=== PATIENT | female | born 1940 | race Caucasian/White ===

== ENCOUNTER 2016-10-03 13:15 | Inpatient (IN) | payer MEDICARE, BC ==
[2016-10-03] MEDS ORDERED: methylPREDNISolone SOD SUCCI 125 MG/2 ML VIAL IV STA (14:21)
[2016-10-03] MEDS ORDERED: IPRATROPIUM-ALBUTEROL 3 ML NEB INHALATION STA ×2 (14:21→16:31)
--- NOTE | 2016-10-03 14:24 | ED ---
General Adult HPI - General Source: patient, RN notes reviewed Mode of arrival: wheelchair Limitations: no limitations <Misha Bennett - Last Filed: 10/03/16 16:52> <Rashmi Molina - Last Filed: 10/03/16 18:40> - General Chief complaint: Shortness of Breath Stated complaint: SOB Time Seen by Provider: 10/03/16 13:45 - History of Present Illness Initial comments: This is a 70 citral female who has a past medical history significant for smoking 50+ years. Patient states she has COPD and occasionally she has an exacerbation of COPD. Patient states today she believes that is what is going on. Patient states that difficult breathing over the last 4-5 days. Patient states she's had intermittent chest heaviness over the last 4-5 days. Patient states currently she has had shortness of breath but no chest pain. Patient states she has no fever but has had some chills. Patient denies any significant cough. Patient denies any palpitations. Patient denies any radiation of chest pain. Patient denies any diaphoresis. Patient denies any nausea. Patient denies any abdominal pain. Patient denies any headache patient denies numbness weakness patient denies lightheadedness dizziness or near syncopal episode. (Misha Bennett) - Related Data Home Medications Medication Instructions Recorded Confirmed Albuterol Inhaler [Ventolin Hfa 1 - 2 puff INHALATION RT-Q6H PRN 10/03/16 Inhaler] Arformoterol Tartrate [Brovana] 15 mcg INHALATION RT-BID 10/03/16 10/03/16 Aspirin EC [Ecotrin Low Dose] 81 mg PO DAILY 10/03/16 10/03/16 Benzonatate [Tessalon Perles] 100 mg PO TID PRN 10/03/16 10/03/16 Budesonide [Pulmicort] 0.5 mg INHALATION RT-BID 10/03/16 10/03/16 Carvedilol [Coreg] 12.5 mg PO BID 10/03/16 10/03/16 Clotrimazole/Betamethasone Dip 1 applic TOPICAL BID 10/03/16 10/03/16 [Lotrisone Cream] Docusate [Colace] 100 mg PO BID 10/03/16 10/03/16 Fluticasone Nasal [place] [Flonase 1 spray EA NOSTRIL DAILY 10/03/16 10/03/16 Nasal [place]] Furosemide [Lasix] 40 mg PO DAILY 10/03/16 10/03/16 LORazepam [Ativan] 0.5 mg PO BID PRN 10/03/16 10/03/16 Levothyroxine Sodium [Synthroid] 100 mcg PO DAILY 10/03/16 10/03/16 Loratadine 10 mg PO DAILY PRN 10/03/16 10/03/16 Losartan Potassium [Cozaar] 50 mg PO DAILY 10/03/16 10/03/16 Multivitamins, Thera [Multivitamin 1 tab PO DAILY 10/03/16 10/03/16 (formulary)] Nitroglycerin Sl Tabs [Nitrostat] 0.4 mg SUBLINGUAL Q5M PRN 10/03/16 10/03/16 Omeprazole [PriLOSEC] 20 mg PO DAILY 10/03/16 10/03/16 Pseudoephedrine 12Hr [Sudafed 12Hr] 120 mg PO DAILY 10/03/16 10/03/16 Ranibizumab [Lucentis] 0 ml LEFT EYE 10/03/16 Ranibizumab [Lucentis] 0 ml RIGHT EYE 10/03/16 Sennosides [Senna] 8.6 mg PO BID 10/03/16 10/03/16 Tiotropium [place] [Spiriva] 1 cap INHALATION RT-DAILY 10/03/16 10/03/16 Vit C/E/Zn/Coppr/Lutein/Zeaxan 2 cap PO DAILY 10/03/16 10/03/16 [Preservision Areds 2 Softgel] amLODIPine [Norvasc] 10 mg PO DAILY 10/03/16 10/03/16 hydrALAZINE HCL [Hydralazine HCl] 25 mg PO BID 10/03/16 10/03/16 Allergies Allergy/AdvReac Type Severity Reaction Status Date / Time No Known Allergies Allergy Verified 10/03/16 14:44 Review of Systems ROS Other: All systems not noted in ROS Statement are negative. <Misha Bennett - Last Filed: 10/03/16 16:52> ROS Other: All systems not noted in ROS Statement are negative. <Rashmi Molina - Last Filed: 10/03/16 18:40> ROS Statement: Those systems with pertinent positive or pertinent negative responses have been documented in the HPI. Past Medical History Past Medical History: Cancer, Heart Failure, COPD, Hyperlipidemia, Hypertension , Sleep Apnea/CPAP/BIPAP, Thyroid Disorder Additional Past Medical History / Comment(s): cll sleep apnea macular degeneration skin ca History of Any Multi-Drug Resistant Organisms: None Reported Past Surgical History: Heart Catheterization With Stent, Tonsillectomy Additional Past Surgical History / Comment(s): d & c Past Psychological History: No Psychological Hx Reported Smoking Status: Former smoker Past Alcohol Use History: Daily Past Drug Use History: None Reported <Misha Bennett - Last Filed: 10/03/16 16:52> General Exam Limitations: no limitations <Misha Bennett - Last Filed: 10/03/16 16:52> <Rashmi Molina - Last Filed: 10/03/16 18:40> - General Exam Comments Initial Comments: GENERAL: Patient is well-developed and well-nourished. Patient is nontoxic and well- hydrated and is in mild distress. ENT: Neck is soft and supple. No significant lymphadenopathy is noted. Oropharynx is clear. Moist mucous membranes. Neck has full range of motion without eliciting any pain. EYES: The sclera were anicteric and conjunctiva were pink and moist. Extraocular movements were intact and pupils were equal round and reactive to light. Eyelids were unremarkable. PULMONARY: Patient has diminished breath sounds in the bases. CARDIOVASCULAR: There is a regular rate and rhythm without any murmurs gallops or rubs. ABDOMEN: Soft and nontender with normal bowel sounds. No palpable organomegaly was noted. There is no palpable pulsatile mass. SKIN: Skin is clear with no lesions or rashes and otherwise unremarkable. NEUROLOGIC: Patient is alert and oriented x3. Cranial nerves II through XII are grossly intact. Motor and sensory are also intact. Normal speech, volume and content. Symmetrical smile. MUSCULOSKELETAL: Normal extremities with adequate strength and full range of motion. No lower extremity swelling or edema. No calf tenderness. LYMPHATICS: No significant lymphadenopathy is noted PSYCHIATRIC: Normal psychiatric evaluation. Normal interpersonal interactions appears functionally intact in deals appropriately with others. No signs of depression. No signs of anxiety. (Misha Bennett) Course <Misha Bennett - Last Filed: 10/03/16 16:52> <Rashmi Molina - Last Filed: 10/03/16 18:40> Vital Signs 10/03/16 10/03/16 10/03/16 13:44 14:26 15:10 Temperature 97.7 F Pulse Rate 88 92 Respiratory 18 16 Rate Blood Pressure 126/60 115/61 O2 Sat by Pulse 86 L 91 L 85 L Oximetry 10/03/16 10/03/16 10/03/16 16:15 16:27 16:37 Temperature Pulse Rate 90 91 Respiratory 18 Rate Blood Pressure 121/72 O2 Sat by Pulse 87 L 83 L Oximetry 10/03/16 10/03/16 10/03/16 16:45 16:49 17:15 Temperature Pulse Rate 91 92 Respiratory 20 Rate Blood Pressure 121/72 111/59 O2 Sat by Pulse 93 L 90 L Oximetry - Reevaluation(s) Reevaluation #1: 10/03/16 18:[address] of the chest angiogram was reviewed, she has a 4 cm aortic aneurysm and descending aorta she also has a congestive heart failure and COPD we'll go ahead and admit her under Dr. Gold service and Dr. Zaragoza or pbx manager to be consulted, I recommended admission in patient agreed with 10/03/16 18:39 (Rashmi Molina) Medical Decision Making - Lab Data Result diagrams: 10/03/16 14:24 10/03/16 14:24 <Misha Bennett - Last Filed: 10/03/16 16:52> - Lab Data Result diagrams: 10/03/16 14:24 10/03/16 14:24 <Rashmi Molina - Last Filed: 10/03/16 18:40> - Medical Decision Making EKG shows normal sinus rhythm at 80 bpm MN interval 168 QRS is 78 QT interval 376 QTC is 454. Patient's EKG shows no ST segment elevation or depression. Dr. Barrera will be taking over care of this patient at 5 PM (Misha Bennett) - Lab Data Lab Results 10/03/16 10/03/16 10/03/16 Range/Units 14:24 14:24 14:24 WBC 21.5 H (3.8-10.6) k/uL RBC 3.09 L (3.80-5.40) m/uL Hgb 9.9 L (11.4-16.0) gm/dL Hct 31.0 L (34.0-46.0) % MCV 100.6 H (80.0-100.0) fL MCH 32.2 (25.0-35.0) pg MCHC 32.0 (31.0-37.0) g/dL RDW 15.1 (11.5-15.5) % Plt Count 262 (150-450) k/uL Neutrophils % (Manual) 18.0 % Lymphocytes % (Manual) 78.0 % Monocytes % (Manual) 4.0 % Neutrophils # (Manual) 3.9 (1.3-7.7) k/uL Lymphocytes # (Manual) 16.8 H (1.0-4.8) k/uL Monocytes # (Manual) 0.9 (0-1.0) k/uL Nucleated RBCs 0 (0-0) /100 WBC Manual Slide Review Performed Reactive Lymphocytes Present Hypochromasia Slight Macrocytosis Slight PT (9.0-12.0) sec INR (<1.2) APTT (22.0-30.0) sec D-Dimer (<0.60) mg/L FEU Sodium 138 (137-145) mmol/L Potassium 5.3 H (3.5-5.1) mmol/L Chloride 89 L (98-107) mmol/L Carbon Dioxide 39 H (22-30) mmol/L Anion Gap 10 mmol/L BUN 25 H (7-17) mg/dL Creatinine 0.95 (0.52-1.04) mg/dL Est GFR (MDRD) Af Amer >60 (>60 ml/min/1.73 sqM) Est GFR (MDRD) Non-Af 57 (>60 ml/min/1.73 sqM) Glucose 109 H (74-99) mg/dL Calcium 9.7 (8.4-10.2) mg/dL Magnesium 1.8 (1.6-2.3) mg/dL Total Bilirubin 0.5 (0.2-1.3) mg/dL AST 16 (14-36) U/L ALT 31 (9-52) U/L Alkaline Phosphatase 109 (38-126) U/L Total Creatine Kinase 26 L (30-135) U/L CK-MB (CK-2) 1.2 (0.0-2.4) ng/mL CK-MB (CK-2) Rel Index 4.6 Troponin I <0.012 (0.000-0.034) ng/mL NT-Pro-B Natriuret Pep pg/mL Total Protein 6.2 L (6.3-8.2) g/dL Albumin 3.8 (3.5-5.0) g/dL 10/03/16 10/03/16 10/03/16 Range/Units 14:24 14:24 14:24 WBC (3.8-10.6) k/uL RBC (3.80-5.40) m/uL Hgb (11.4-16.0) gm/dL Hct (34.0-46.0) % MCV (80.0-100.0) fL MCH (25.0-35.0) pg MCHC (31.0-37.0) g/dL RDW (11.5-15.5) % Plt Count (150-450) k/uL Neutrophils % (Manual) % Lymphocytes % (Manual) % Monocytes % (Manual) % Neutrophils # (Manual) (1.3-7.7) k/uL Lymphocytes # (Manual) (1.0-4.8) k/uL Monocytes # (Manual) (0-1.0) k/uL Nucleated RBCs (0-0) /100 WBC Manual Slide Review Reactive Lymphocytes Hypochromasia Macrocytosis PT 10.5 (9.0-12.0) sec INR 1.0 (<1.2) APTT 22.2 (22.0-30.0) sec D-Dimer 0.83 H (<0.60) mg/L FEU Sodium (137-145) mmol/L Potassium (3.5-5.1) mmol/L Chloride (98-107) mmol/L Carbon Dioxide (22-30) mmol/L Anion Gap mmol/L BUN (7-17) mg/dL Creatinine (0.52-1.04) mg/dL Est GFR (MDRD) Af Amer (>60 ml/min/1.73 sqM) Est GFR (MDRD) Non-Af (>60 ml/min/1.73 sqM) Glucose (74-99) mg/dL Calcium (8.4-10.2) mg/dL Magnesium (1.6-2.3) mg/dL Total Bilirubin (0.2-1.3) mg/dL AST (14-36) U/L ALT (9-52) U/L Alkaline Phosphatase (38-126) U/L Total Creatine Kinase (30-135) U/L CK-MB (CK-2) (0.0-2.4) ng/mL CK-MB (CK-2) Rel Index Troponin I (0.000-0.034) ng/mL NT-Pro-B Natriuret Pep 1870 pg/mL Total Protein (6.3-8.2) g/dL Albumin (3.5-5.0) g/dL Disposition <Misha Bennett - Last Filed: 10/03/16 16:52> <Rashmi Molina - Last Filed: 10/03/16 18:40> Clinical Impression: COPD (chronic obstructive pulmonary disease), Congestive heart failure, Ascending aortic aneurysm Disposition: ADMITTED IP TO THIS HOSP Condition: Fair Referrals: Bernard Zaragoza MD [STAFF PHYSICIAN] - 1-2 days
[2016-10-03 14:50] LABS: Partial Thromboplastin Time 22.2 sec (22.0-30.0); Prothrombin Time 10.5 sec (9.0-12.0)
[2016-10-03 14:51] LABS: ALT 31 U/L (9-52); AST 16 U/L (14-36); Alkaline Phosphatase 109 U/L (38-126); Anion Gap 10 mmol/L; Blood Urea Nitrogen 25 mg/dL (7-17); Calcium 9.7 mg/dL (8.4-10.2); Carbon Dioxide 39 mmol/L (22-30); Chloride 89 mmol/L (98-107); Glucose 109 mg/dL (74-99); Magnesium 1.8 mg/dL (1.6-2.3); Non-African American GFR(MDRD) 57 (>60 ml/min/1.73 sqM); Potassium 5.3 mmol/L (3.5-5.1); Sodium 138 mmol/L (137-145); Total Bilirubin 0.5 mg/dL (0.2-1.3); Total Protein 6.2 g/dL (6.3-8.2)
[2016-10-03 15:02] LABS: Creatine Kinase 26 U/L (30-135)
[2016-10-03 15:04] LABS: CH 31.5; CHCM 31.5; HDW 3.04; HGB 9.9 gm/dL (11.4-16.0); Hypochromasia Slight; MCH 32.2 pg (25.0-35.0); MCV 100.6 fL (80.0-100.0); Macrocytosis Slight; Mean Platelet Volume 7.5; RBC 3.09 m/uL (3.80-5.40); RDW 15.1 % (11.5-15.5); WBC 21.5 k/uL (3.8-10.6); WBC (Perox) 19.83
[2016-10-03 15:15] LABS: Add Differential Manual Differential; Creatine Kinase MB 1.2 ng/mL (0.0-2.4); Troponin I <0.012 ng/mL (0.000-0.034)
[2016-10-03 15:18] LABS: Manual Review Performed; Nucleated Red Blood Cells 0 /100 WBC (0-0); Reactive Lymphocytes Present; Total Cells Counted 100
--- NOTE | 2016-10-03 15:47 | XR ---
EXAMINATION TYPE: XR chest 2V DATE OF EXAM: 10/03/2016 COMPARISON: NONE HISTORY: Hypoxia and dyspnea. TECHNIQUE: Frontal and lateral views of the chest are obtained. FINDINGS: The cardiac silhouette is mildly enlarged. Mild pulmonary vascular congestion is appreciat ed. Small layering pleural effusions, left greater than right are seen. There is generalized osseous demineralization. Atherosclerosis is seen of the ascending aorta and aortic arch. IMPRESSION: Mild pulmonary vascular congestion and small pleural effusions in association with cardi omegaly likely relate to underlying congestive heart failure.
[2016-10-03] MEDS ORDERED: RX INFO: IV CONTRAST WAS GIVEN 1 EACH MISC MISCELLANE PRN (16:47)
[2016-10-03] MEDS ORDERED: NITROGLYCERIN OINT 1 INCH/GM PACKET TOPICAL STA (16:54)
[2016-10-03] MEDS ORDERED: FUROSEMIDE 10 MG/ML 4 ML VIAL IV STA (16:54)
[2016-10-03] MEDS ORDERED: LEVOFLOXACIN 750MG-D5W PMX 750 MG in DEXTROSE/WATER 1 150ML.BAG IVPB STA (16:59)
--- NOTE | 2016-10-03 17:59 | CT ---
EXAMINATION TYPE: CT chest angio for PE DATE OF EXAM: 10/03/2016 COMPARISON: NONE HISTORY: chest pain, sob, r/o PE CT DLP: 463.7 mGycm Automated exposure control for dose reduction was used. CONTRAST: CT Chest for pulmonary embolism performed with with IV Contrast, patient injected with 80 mL of Visip a[place] 320. FINDINGS: There are 3-D post processed images. There is diffuse pulmonary emphysema. There is coarse groundglass interstitial density throughout the lungs. There are mild bilateral pleural effusions. Heart is enlarged. I see no filling defects in th e pulmonary arteries. Thoracic aorta is atheromatous. Ascending aorta measures 4 cm. There is no sign of dissection. There is some atelectasis at the posterior lung bases. There is no definite pericardi al effusion. There are enlarged bronchial and mediastinal lymph nodes that measure up to 1.5 cm. Ther e is atherosclerotic vascular calcification.. IMPRESSION: No evidence of pulmonary embolism. Cardiomegaly and atherosclerotic vascular disease. Mild 4 cm aneur ysm of the ascending aorta. Patchy atelectasis at the lung bases with small pleural effusions. This could relate to congestive he art failure. Interstitial fibrotic changes throughout the lungs with emphysema. Mild mediastinal and bronchial adenopathy. This could relate to old sarcoidosis.
[2016-10-03] MEDS ORDERED: MORPHINE SULFATE 2 MG/ML SYRINGE IVP PRN (18:40)
[2016-10-03] MEDS ORDERED: ALBUTEROL NEBULIZED 2.5 MG/3 ML INHALATION PRN (18:48)
[2016-10-03] MEDS ORDERED: BENZONATATE 100 MG CAP PO PRN (18:48)
[2016-10-03] MEDS ORDERED: LORATADINE 10 MG TAB PO PRN (18:48)
[2016-10-03] MEDS ORDERED: NITROGLYCERIN SL TABS 0.4 MG TAB SUBLINGUAL PRN (18:48)
[2016-10-03] MEDS: BUDESONIDE 0.5 MG/2 ML NEBU INHALATION SCH (19:48)
[2016-10-03] MEDS ORDERED: FORMOTEROL FUMARATE 20 MCG/2 ML NEBU INHALATION SCH (20:00)
[2016-10-03] MEDS: CARVEDILOL 12.5 MG TAB PO SCH (20:24)
[2016-10-03] MEDS: hydrALAZINE HCL 25 MG TAB PO SCH (20:25)
[2016-10-03] MEDS: SENNOSIDES 8.6 MG TAB PO SCH (20:25)
[2016-10-03] MEDS: DOCUSATE 100 MG CAP PO SCH (20:25)
[2016-10-03] MEDS: CLOTRIMAZOLE/BETAMETH 1-0.05% CREAM 45 GM TUBE TOPICAL SCH (20:26)
[2016-10-03 21:22] LABS: Creatine Kinase <20 U/L (30-135)
[2016-10-03 21:34] LABS: Troponin I <0.012 ng/mL (0.000-0.034)
[2016-10-03] MEDS ORDERED: IPRATROPIUM-ALBUTEROL 3 ML NEB INHALATION SCH (21:50)
--- NOTE | 2016-10-03 22:07 | P.HPIM ---
History of Present Illness H&P Date: 10/03/16 Chief Complaint: Short of breath This is a 76 year patient be followed by [facility]. Patient chronic stable medical conditions include hyperlipidemia, hypertension, CLL, coronary artery disease with stent, osteoarthritis. Patient presents with worsening short of breath sounds wheezing some edema has called Dr. Zaragoza's office and patient's directives the ER. Patient pulse ox dropped down to the 70s. Patient has a slight cough has some chills but no fever and decreased appetite rundown. Patient rather tired and rundown. Significant past family history: CHF, COPD, hyperlipidemia, hypertension, obstructive sleep apnea, CLL, coronary artery disease with stent, osteoarthritis Review of Systems GEN.: Tired EYES: None HEENT: None NECK: None RESPIRATORY: As above] CARDIOVASCULAR: None GASTROINTESTINAL: None GENITOURINARY: None MUSCULOSKELETAL: Pain in multiple joints LYMPHATICS: None HEMATOLOGICAL: None PSYCHIATRY: Some anxious NEUROLOGICAL: None Past Medical History Past Medical History: Cancer, Heart Failure, COPD, Hyperlipidemia, Hypertension , Sleep Apnea/CPAP/BIPAP, Thyroid Disorder Additional Past Medical History / Comment(s): CLL. sleep apnea. macular degeneration. Skin ca History of Any Multi-Drug Resistant Organisms: None Reported Past Surgical History: Heart Catheterization With Stent, Tonsillectomy Additional Past Surgical History / Comment(s): d & c Past Anesthesia/Blood Transfusion Reactions: No Reported Reaction Date of Last Stent Placement:: 2007 Past Psychological History: No Psychological Hx Reported Smoking Status: Former smoker Past Alcohol Use History: Daily Past Drug Use History: None Reported - Past Family History Mother Family Medical History: Congestive Heart Failure (CHF) Father Family Medical History: No Reported History Additional Family Medical History / Comment(s): "Alcohol problems" Chirrosis Medications and Allergies Home Medications Medication Instructions Recorded Confirmed Type Albuterol Inhaler [Ventolin Hfa 1 - 2 puff INHALATION RT-Q6H PRN 10/03/16 History Inhaler] Arformoterol Tartrate [Brovana] 15 mcg INHALATION RT-BID 10/03/16 10/03/16 History Aspirin EC [Ecotrin Low Dose] 81 mg PO DAILY 10/03/16 10/03/16 History Benzonatate [Tessalon Perles] 100 mg PO TID PRN 10/03/16 10/03/16 History Budesonide [Pulmicort] 0.5 mg INHALATION RT-BID 10/03/16 10/03/16 History Carvedilol [Coreg] 12.5 mg PO BID 10/03/16 10/03/16 History Clotrimazole/Betamethasone Dip 1 applic TOPICAL BID 10/03/16 10/03/16 History [Lotrisone Cream] Docusate [Colace] 100 mg PO BID 10/03/16 10/03/16 History Fluticasone Nasal [place] [Flonase 1 spray EA NOSTRIL DAILY 10/03/16 10/03/16 History Nasal [place]] Furosemide [Lasix] 40 mg PO DAILY 10/03/16 10/03/16 History LORazepam [Ativan] 0.5 mg PO BID PRN 10/03/16 10/03/16 History Levothyroxine Sodium [Synthroid] 100 mcg PO DAILY 10/03/16 10/03/16 History Loratadine 10 mg PO DAILY PRN 10/03/16 10/03/16 History Losartan Potassium [Cozaar] 50 mg PO DAILY 10/03/16 10/03/16 History Multivitamins, Thera [Multivitamin 1 tab PO DAILY 10/03/16 10/03/16 History (formulary)] Nitroglycerin Sl Tabs [Nitrostat] 0.4 mg SUBLINGUAL Q5M PRN 10/03/16 10/03/16 History Omeprazole [PriLOSEC] 20 mg PO DAILY 10/03/16 10/03/16 History Pseudoephedrine 12Hr [Sudafed 12Hr] 120 mg PO DAILY 10/03/16 10/03/16 History Ranibizumab [Lucentis] 0 ml LEFT EYE 10/03/16 History Ranibizumab [Lucentis] 0 ml RIGHT EYE 10/03/16 History Sennosides [Senna] 8.6 mg PO BID 10/03/16 10/03/16 History Tiotropium [place] [Spiriva] 1 cap INHALATION RT-DAILY 10/03/16 10/03/16 History Vit C/E/Zn/Coppr/Lutein/Zeaxan 2 cap PO DAILY 10/03/16 10/03/16 History [Preservision Areds 2 Softgel] amLODIPine [Norvasc] 10 mg PO DAILY 10/03/16 10/03/16 History hydrALAZINE HCL [Hydralazine HCl] 25 mg PO BID 10/03/16 10/03/16 History Allergies Allergy/AdvReac Type Severity Reaction Status Date / Time No Known Allergies Allergy Verified 10/03/16 14:44 Physical Exam Vitals: Vital Signs Temp Pulse Pulse Resp BP BP Pulse Ox 10/03/16 20:07 112 H 10/03/16 20:00 109 H 10/03/16 19:16 102 H 18 119/57 90 L 10/03/16 19:05 97.1 F L 80 20 123/68 89 L 10/03/16 19:00 87 L 10/03/16 18:15 102 H 18 110/57 89 L 10/03/16 17:15 92 20 111/59 90 L 10/03/16 16:49 91 10/03/16 16:45 121/72 93 L 10/03/16 16:37 91 10/03/16 16:27 83 L 10/03/16 16:15 90 18 121/72 87 L 10/03/16 15:10 92 16 115/61 85 L 10/03/16 14:26 91 L 10/03/16 13:44 97.7 F 88 18 126/60 86 L Intake and Output Patient Weight 10/04/16 06:59 Weight 90.718 kg VITAL SIGNS: Reviewed. BMI noted GENERAL: Well built, laying in bed tired appearing. EYES: Pupils equal. Conjunctiva normal. HEENT: External appearance of nose and ears normal, oral cavity grossly normal. NECK: JVD unable to assess; masses not palpable. HEART: First and second heart sounds are normal; some edema present. LUNGS: Respiratory rate increased, diminished breath sounds and wheezing. ABDOMEN: Soft, nontender, liver spleen not palpable, no masses palpable. LYMPHATICS: No lymph nodes palpable in the axilla and neck. PSYCH: Alert and oriented x3; mood and affect anxious appearingl. NEUROLOGICAL: Cranial nerves grossly intact; no facial asymmetry, power and sensation grossly intact Musculoskeletal: Evidence of osteoarthritis in multiple joints. Results CBC & Chem 7: 10/03/16 14:24 10/03/16 14:24 Labs: White count 21.5, hemoglobin 9.9 MCV 100.6, potassium 5.3, BUNs 25 Chest x-ray reviewed shows some venous prominence ProBNP 1870 CT chest negative for PE EKG nonspecific changes Assessment and Plan Plan: Assessment: Acute congestive heart failure exacerbation, EF not known Acute COPD exacerbation in an ex-smoker Hyperlipidemia Essential hypertension Obstetric sleep apnea does not use CPAP machine Chronic lymphocytic leukemia explaining patient's limited white count Coronary artery disease with prior history of stent 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 Obesity BMI 34.3 Plan: We'll start the patient on a nebulized bronchodilators and IV Solu-Medrol. We will also add IV Lasix. Other home medications are reviewed and continued. Care was discussed with the patient. Questions were answered. Oxygen being supplemented. 2-D echo being ordered
[2016-10-03] MEDS ORDERED: IPRATROPIUM-ALBUTEROL 3 ML NEB INHALATION PRN (22:48)
[2016-10-03] MEDS: methylPREDNISolone SOD SUCCI 40 MG/ML 1 ML VIAL IV SCH (22:56)
[2016-10-03] MEDS: FUROSEMIDE 10 MG/ML 4 ML VIAL IV SCH (22:56)
[2016-10-04] MEDS: LORazepam 0.5 MG TAB PO PRN ×2 (00:14→22:59)
[2016-10-04 02:48] LABS: Calcium 9.3 mg/dL (8.4-10.2); Potassium 5.1 mmol/L (3.5-5.1)
[2016-10-04 02:51] LABS: Creatine Kinase 23 U/L (30-135)
[2016-10-04 03:04] LABS: Troponin I <0.012 ng/mL (0.000-0.034)
[2016-10-04 05:57] LABS: Glucose,Whole Blood 340 mg/dL (75-99)
[2016-10-04] MEDS: LEVOTHYROXINE 100 MCG TAB PO SCH (06:21)
[2016-10-04] MEDS: CARVEDILOL 12.5 MG TAB PO SCH ×2 (06:21→17:26)
[2016-10-04] MEDS: PANTOPRAZOLE 40 MG TABLET PO SCH (06:22)
[2016-10-04] MEDS: INSULIN LISPRO (humaLOG) 300 UNIT/3 ML VIAL SQ SCH ×4 (06:24→21:04)
[2016-10-04] MEDS ORDERED: TIOTROPIUM 18 MCG/PUFF INHALER INHALATION SCH (08:00)
[2016-10-04] MEDS: BUDESONIDE 0.5 MG/2 ML NEBU INHALATION SCH ×2 (08:14→20:34)
[2016-10-04] MEDS: IPRATROPIUM-ALBUTEROL 3 ML NEB INHALATION SCH ×4 (08:14→20:34)
[2016-10-04] MEDS: FORMOTEROL FUMARATE 20 MCG/2 ML NEBU INHALATION SCH ×2 (08:14→20:34)
[2016-10-04] MEDS: methylPREDNISolone SOD SUCCI 40 MG/ML 1 ML VIAL IV SCH ×2 (08:22→20:08)
[2016-10-04] MEDS: FUROSEMIDE 10 MG/ML 4 ML VIAL IV SCH ×3 (08:23→22:59)
[2016-10-04] MEDS ORDERED: ASPIRIN 325 MG TAB PO SCH (09:00)
[2016-10-04] MEDS ORDERED: FUROSEMIDE 40 MG TAB PO SCH (09:00)
--- NOTE | 2016-10-04 09:16 | P.CRDCN ---
History of Present Illness Consult date: 10/04/16 Requesting physician: Shekhar Gold Consult reason: chest pain Chief complaint: Shortness of breath History of present illness: This is a 76-year-old female with prior history of smoking, COPD, hypertension, hyperlipidemia, sleep apnea, hypothyroidism, coronary artery disease with 2 prior stent placements, she follows with Dr. Lewis at [facility]. Patient presents to the hospital with symptoms of progressively worsening shortness of breath with associated mild chills. She states that she has had several exacerbations of COPD, and this felt very similar to that. She does state that she's had occasional chest heaviness and tightness which she also gets with her COPD exacerbations. Patient denies any chest pain which reminds her of what she had prior to her stent placements. She also states that she had a recent admission to [facility] with exacerbation of COPD. EKG on arrival here shows a normal sinus rhythm with nonspecific ST-T wave changes in the anterior leads. Subsequent EKG which was performed this morning shows normal sinus rhythm with ST-T wave changes anteriorly. Chest x-ray revealed mild pulmonary vascular congestion and small pleural effusions likely related to underlying congestive heart failure. CT of the chest was performed which did not reveal any evidence for pulmonary embolism. 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 Patchy atelectasis at the lung bases with small pleural effusions which could represent congestive heart failure. Interstitial fibrotic changes in the lungs associated with emphysema. Mild mediastinotomy bronchial adenopathy. Blood pressure on arrival here 126/60 with heart rate in the 80s, 86% on 4 L of oxygen on arrival. White blood cell count on arrival here 21.5, hemoglobin 9.9, d-dimer 0.8. Sodium 138, potassium 5.3, chloride 89 , CO2 39, BUN 25, creatinine 0.9. BUN 37 and creatinine 1.2 this morning. Troponins have been negative 3, BNP level 1870. Cholesterol 237, LDL 172, HDL 39, triglycerides 132. was given IV Lasix in the emergency room, is currently on IV Lasix. She was also started on Solu-Medrol and breathing treatments. Overall she states she's feeling mildly better today. Past Medical History Past Medical History: Cancer, Heart Failure, COPD, Hyperlipidemia, Hypertension , Sleep Apnea/CPAP/BIPAP, Thyroid Disorder Additional Past Medical History / Comment(s): CLL. sleep apnea. macular degeneration. Skin ca History of Any Multi-Drug Resistant Organisms: None Reported Past Surgical History: Heart Catheterization With Stent, Tonsillectomy Additional Past Surgical History / Comment(s): d & c Past Anesthesia/Blood Transfusion Reactions: No Reported Reaction Date of Last Stent Placement:: 2007 Past Psychological History: No Psychological Hx Reported Smoking Status: Former smoker Past Alcohol Use History: Daily Past Drug Use History: None Reported - Past Family History Mother Family Medical History: Congestive Heart Failure (CHF) Father Family Medical History: No Reported History Additional Family Medical History / Comment(s): "Alcohol problems" Chirrosis Medications and Allergies Home Medications Medication Instructions Recorded Confirmed Type Albuterol Inhaler [Ventolin Hfa 1 - 2 puff INHALATION RT-Q6H PRN 10/03/16 History Inhaler] Arformoterol Tartrate [Brovana] 15 mcg INHALATION RT-BID 10/03/16 10/03/16 History Aspirin EC [Ecotrin Low Dose] 81 mg PO DAILY 10/03/16 10/03/16 History Benzonatate [Tessalon Perles] 100 mg PO TID PRN 10/03/16 10/03/16 History Budesonide [Pulmicort] 0.5 mg INHALATION RT-BID 10/03/16 10/03/16 History Carvedilol [Coreg] 12.5 mg PO BID 10/03/16 10/03/16 History Clotrimazole/Betamethasone Dip 1 applic TOPICAL BID 10/03/16 10/03/16 History [Lotrisone Cream] Docusate [Colace] 100 mg PO BID 10/03/16 10/03/16 History Fluticasone Nasal [place] [Flonase 1 spray EA NOSTRIL DAILY 10/03/16 10/03/16 History Nasal [place]] Furosemide [Lasix] 40 mg PO DAILY 10/03/16 10/03/16 History LORazepam [Ativan] 0.5 mg PO BID PRN 10/03/16 10/03/16 History Levothyroxine Sodium [Synthroid] 100 mcg PO DAILY 10/03/16 10/03/16 History Loratadine 10 mg PO DAILY PRN 10/03/16 10/03/16 History Losartan Potassium [Cozaar] 50 mg PO DAILY 10/03/16 10/03/16 History Multivitamins, Thera [Multivitamin 1 tab PO DAILY 10/03/16 10/03/16 History (formulary)] Nitroglycerin Sl Tabs [Nitrostat] 0.4 mg SUBLINGUAL Q5M PRN 10/03/16 10/03/16 History Omeprazole [PriLOSEC] 20 mg PO DAILY 10/03/16 10/03/16 History Pseudoephedrine 12Hr [Sudafed 12Hr] 120 mg PO DAILY 10/03/16 10/03/16 History Ranibizumab [Lucentis] 0 ml LEFT EYE 10/03/16 History Ranibizumab [Lucentis] 0 ml RIGHT EYE 10/03/16 History Sennosides [Senna] 8.6 mg PO BID 10/03/16 10/03/16 History Tiotropium [place] [Spiriva] 1 cap INHALATION RT-DAILY 10/03/16 10/03/16 History Vit C/E/Zn/Coppr/Lutein/Zeaxan 2 cap PO DAILY 10/03/16 10/03/16 History [Preservision Areds 2 Softgel] amLODIPine [Norvasc] 10 mg PO DAILY 10/03/16 10/03/16 History hydrALAZINE HCL [Hydralazine HCl] 25 mg PO BID 10/03/16 10/03/16 History Allergies Allergy/AdvReac Type Severity Reaction Status Date / Time No Known Allergies Allergy Verified 10/03/16 14:44 Physical Exam Vitals: Vital Signs Temp Pulse Pulse Resp BP BP BP 10/04/16 08:35 100 10/04/16 08:27 96 10/04/16 08:26 96 10/04/16 08:17 94 10/04/16 07:54 96.9 F L 95 18 101/55 10/04/16 04:00 97.5 F L 89 20 104/55 10/04/16 00:00 97.6 F 95 20 109/65 10/03/16 20:07 112 H 10/03/16 20:00 97.1 F L 109 H 80 20 123/68 10/03/16 19:16 102 H 18 119/57 10/03/16 19:05 97.1 F L 80 20 123/68 10/03/16 19:00 10/03/16 18:42 07/31/17 18:15 102 H 18 110/57 10/03/16 17:15 92 20 111/59 10/03/16 16:49 91 10/03/16 16:45 121/72 10/03/16 16:37 91 10/03/16 16:27 10/03/16 16:15 90 18 121/72 10/03/16 15:10 92 16 115/61 10/03/16 14:26 10/03/16 13:44 97.7 F 88 18 126/60 Pulse Ox 10/04/16 08:35 10/04/16 08:27 10/04/16 08:26 10/04/16 08:17 92 L 10/04/16 07:54 90 L 10/04/16 04:00 93 L 10/04/16 00:00 90 L 10/03/16 20:07 10/03/16 20:00 89 L 10/03/16 19:16 90 L 10/03/16 19:05 89 L 10/03/16 19:00 87 L 10/03/16 18:42 89 L 10/03/16 18:15 89 L 10/03/16 17:15 90 L 10/03/16 16:49 10/03/16 16:45 93 L 10/03/16 16:37 10/03/16 16:27 83 L 10/03/16 16:15 87 L 10/03/16 15:10 85 L 10/03/16 14:26 91 L 10/03/16 13:44 86 L Intake and Output 10/03/16 10/04/16 10/04/16 22:59 06:59 14:59 Output Total 200 500 Balance -200 -500 Output: Urine 200 500 Other: Voiding Method Toilet Toilet # Voids 1 1 Weight 90.718 kg 91.1 kg PHYSICAL EXAMINATION: HEENT: Head is atraumatic, normocephalic. Pupils equal, round. Neck is supple. There is no elevated jugular venous pressure. HEART EXAMINATION: Heart S1 S2 1 systolic murmur is heard. CHEST EXAMINATION: Lungs reveal decreased air entry to bilateral bases. ABDOMEN: Soft, nontender. Bowel sounds are heard. No organomegaly noted]. EXTREMITIES:[ 2+ peripheral pulses with no evidence of peripheral edema and no calf tenderness noted]. NEUROLOGIC [patient is awake, alert and oriented -3.] . Results 10/03/16 14:24 10/04/16 02:15 Cardiac Enzymes 10/03/16 10/03/16 10/03/16 Range/Units 14:24 14:24 20:52 AST 16 (14-36) U/L CK-MB (CK-2) 1.2 1.0 (0.0-2.4) ng/mL Troponin I <0.012 <0.012 (0.000-0.034) ng/mL 10/04/16 Range/Units 02:15 AST (14-36) U/L CK-MB (CK-2) 1.0 (0.0-2.4) ng/mL Troponin I <0.012 (0.000-0.034) ng/mL Coagulation 10/03/16 Range/Units 14:24 PT 10.5 (9.0-12.0) sec APTT 22.2 (22.0-30.0) sec Lipids 10/04/16 Range/Units 02:15 Triglycerides 132 (<150) mg/dL Cholesterol 237 H (<200) mg/dL HDL Cholesterol 39 L (40-60) mg/dL CBC 10/03/16 Range/Units 14:24 WBC 21.5 H (3.8-10.6) k/uL RBC 3.09 L (3.80-5.40) m/uL Hgb 9.9 L (11.4-16.0) gm/dL Hct 31.0 L (34.0-46.0) % Plt Count 262 (150-450) k/uL Comprehensive Metabolic Panel 10/03/16 10/04/16 Range/Units 14:24 02:15 Sodium 138 135 L (137-145) mmol/L Potassium 5.3 H 5.1 (3.5-5.1) mmol/L Chloride 89 L 86 L (98-107) mmol/L Carbon Dioxide 39 H 35 H (22-30) mmol/L BUN 25 H 37 H (7-17) mg/dL Creatinine 0.95 1.20 H (0.52-1.04) mg/dL Glucose 109 H 379 H (74-99) mg/dL Calcium 9.7 9.3 (8.4-10.2) mg/dL AST 16 (14-36) U/L ALT 31 (9-52) U/L Alkaline Phosphatase 109 (38-126) U/L Total Protein 6.2 L (6.3-8.2) g/dL Albumin 3.8 (3.5-5.0) g/dL Current Medications Generic Name Dose Route Start Last Admin Trade Name Freq PRN Reason Stop Dose Admin Albuterol/Ipratropium 3 ml 10/04/16 08:00 10/04/16 08:14 Duoneb 0.5 Mg-3 Mg/3 Ml Soln INHALATION 3 ml RT-QID JACK Administration Albuterol/Ipratropium 3 ml 10/03/16 22:48 Duoneb 0.5 Mg-3 Mg/3 Ml Soln INHALATION RT-Q2H PRN Shortness Of Breath Or Wheezing Amlodipine Besylate 10 mg 10/04/16 09:00 Norvasc PO DAILY [facility] Aspirin 325 mg 10/04/16 09:00 Aspirin PO DAILY [facility] Benzonatate 100 mg 10/03/16 18:48 Tessalon Perles PO TID PRN Cough Betamethasone/Clotrimazole 1 applic 10/03/16 21:00 10/03/16 20:26 Lotrisone TOPICAL Not Given BID [facility] Budesonide 0.5 mg 10/03/16 20:00 10/04/16 08:14 Pulmicort INHALATION 0.5 mg RT-BID JACK Administration Carvedilol 12.5 mg 10/03/16 19:30 10/04/16 06:21 Coreg PO 12.5 mg BID-W/MEALS [facility] Administration Docusate Sodium 100 mg 10/03/16 21:00 10/03/16 20:25 Colace PO 100 mg BID JACK Administration Fluticasone Propionate 1 spray 10/04/16 09:00 Flonase Nasal [place] EA NOSTRIL DAILY [facility] Formoterol Fumarate 20 mcg 10/04/16 08:00 10/04/16 08:14 Perforomist INHALATION 20 mcg RT-BID JACK Administration Furosemide 40 mg 10/04/16 00:00 10/04/16 08:23 Lasix IV 40 mg Q8HR JACK Administration Hydralazine HCl 25 mg 10/03/16 21:00 10/03/16 20:25 Apresoline PO 25 mg BID JACK Administration Insulin Human Lispro 0 unit 10/04/16 07:30 10/04/16 06:24 Humalog SQ 8 unit ACHS JACK Administration Protocol Levothyroxine Sodium 100 mcg 10/04/16 06:30 10/04/16 06:21 Synthroid PO 100 mcg DAILY@0630 JACK Administration Loratadine 10 mg 10/03/16 18:48 Claritin PO DAILY PRN Allergy Symptoms Lorazepam 0.5 mg 10/03/16 18:48 10/04/16 00:14 Ativan PO 0.5 mg BID PRN Administration Anxiety Losartan Potassium 50 mg 10/04/16 09:00 Cozaar PO DAILY [facility] Methylprednisolone Sodium Succinate 40 mg 10/04/16 00:00 10/04/16 08:22 Solu-Medrol IV 40 mg Q8HR JACK Administration Miscellaneous Information 1 each 10/03/16 16:47 Rx Info: Iv Contrast Was Given MISCELLANE 10/05/16 16:47 DAILY PRN Per Protocol Morphine Sulfate 2 mg 10/03/16 18:40 Morphine Sulfate (Inj) IVP Q5M PRN Chest Pain Multivitamins 1 each 10/04/16 12:00 Theragran PO DAILY@1200 [facility] Multivitamins/Minerals 2 each 10/04/16 09:00 Ivite PO DAILY [facility] Nitroglycerin 0.4 mg 10/03/16 18:48 Nitrostat SUBLINGUAL Q5M PRN Chest Pain Pantoprazole Sodium 40 mg 10/04/16 07:30 10/04/16 06:22 Protonix PO 40 mg [id number] [facility] Administration Pseudoephedrine HCl 120 mg 10/04/16 09:00 Sudafed 12hr PO DAILY [facility] Senna 8.6 mg 10/03/16 21:00 10/03/16 20:25 Senokot PO 8.6 mg BID [facility] Administration Intake and Output 10/03/16 10/04/16 10/04/16 22:59 06:59 14:59 Output Total 200 500 Balance -200 -500 Output: Urine 200 500 Other: Voiding Method Toilet Toilet # Voids 1 1 Weight 90.718 kg 91.1 kg 10/03/16 14:24 10/04/16 02:15 EKG Interpretations (text) EKG shows normal sinus rhythm with anterior ST-T wave changes Assessment and Plan Plan: Assessment and plan #1 symptoms of progressively worsening shortness of breath , likely combination of exacerbation of COPD, and mild congestive cardiac failure. LV function unknown #2 known history of coronary artery disease with 2 prior stent placements in the past #3 hypertension #4 hyperlipidemia #5 50 year history of smoking #6 COPD #7 sleep apnea #8 hypothyroidism #9 CLL Plan We will obtain an echocardiogram with Doppler study. We will also obtain records from [facility] on patient's prior cardiac history. Patient is currently on IV Lasix, we will monitor the kidney function closely. Decrease aspirin 81 mg daily. Further recommendations to follow. DNP note has been reviewed, I agree with a documented findings and plan of care. Patient was seen and examined.
[2016-10-04] MEDS: DOCUSATE 100 MG CAP PO SCH ×2 (09:37→20:08)
[2016-10-04] MEDS: hydrALAZINE HCL 25 MG TAB PO SCH ×2 (09:37→20:08)
[2016-10-04] MEDS: amLODIPine 10 MG TAB PO SCH (09:37)
[2016-10-04] MEDS: LOSARTAN 50 MG TAB PO SCH (09:38)
[2016-10-04] MEDS: VIT A,C & E-LUTEIN-MINERALS 1 EACH TAB PO SCH (09:38)
[2016-10-04] MEDS: PSEUDOEPHEDRINE 12HR 120 MG TABLET.ER PO SCH (09:38)
[2016-10-04] MEDS: SENNOSIDES 8.6 MG TAB PO SCH ×2 (09:38→20:08)
[2016-10-04] MEDS: CLOTRIMAZOLE/BETAMETH 1-0.05% CREAM 45 GM TUBE TOPICAL SCH ×2 (09:44→20:08)
[2016-10-04] MEDS: FLUTICASONE 50MCG/SPRAY NASAL 16GM EA NOSTRIL SCH (09:44)
--- NOTE | 2016-10-04 11:37 | ECHOF ---
Referral Reason:CHF MEASUREMENTS -------- HEIGHT: 162.6 cm WEIGHT: 90.7 kg BP: 104/65 IVSd: 1.3 cm (0.6 - 1.1) LVIDd: 4.0 cm (3.9 - 5.3) LVPWd: 1.1 cm (0.6 - 1.1) IVSs: 1.6 cm LVIDs: 3.4 cm LVPWs: 1.5 cm LA Diam: 4.3 cm (2.7 - 3.8) Ao Diam: 3.4 cm (2.0 - 3.7) AV Cusp: 1.8 cm (1.5 - 2.6) LA Diam: 5.1 cm (2.7 - 3.8) MV EXCURSION: 17.180 mm (> 18.000) MV EF SLOPE: 93 mm/s (70 - 150) EPSS: 0.4 cm MV E Sunday: 0.72 m/s MV DecT: 228 ms MV A Sunday: 1.10 m/s MV E/A Ratio: 0.66 RAP: 5.00 mmHg RVSP: 26.04 mmHg FINDINGS -------- Sinus rhythm. Pt complaining of apicals pressure. There is mild concentric left ventricular hypertrophy. Overall left ventricular systolic function is normal with, an EF between 55 - 60 %. The right ventricle is normal in size. The right atrial size is normal. 1.5MG OF DEFINITY UTLIZED: 2 OR MORE WALL SEGMENTS NOT VISUALIZED. There is mild aortic valve sclerosis. There is no evidence of aortic regurgitation. Mild mitral annular calcification present. Mild mitral regurgitation is present. Mild tricuspid regurgitation present. There is no evidence of pulmonary hypertension. The right ventricular systolic pressure, as measured by Doppler, is 26.04mmHg. There is no pulmonic regurgitation present. The aortic root size is normal. There is a trivial pericardial effusion present. CONCLUSIONS -------- 1. Pt complaining of apicals pressure. 2. The right ventricular systolic pressure, as measured by Doppler, is 26.04mmHg. 3. There is mild concentric left ventricular hypertrophy. 4. Overall left ventricular systolic function is normal with, an EF between 55 - 60 %. 5. 1.5MG OF DEFINITY UTLIZED: 2 OR MORE WALL SEGMENTS NOT VISUALIZED. 6. There is mild aortic valve sclerosis. 7. Mild mitral annular calcification present. 8. Mild mitral regurgitation is present. 9. Mild tricuspid regurgitation present. 10. There is no evidence of pulmonary hypertension. [employer]: Roslyn Aguila RDCS
[2016-10-04 11:45] LABS: Hemoglobin A1C 6.5 % (4.2-6.1)
[2016-10-04 12:15] LABS: Glucose,Whole Blood 247 mg/dL (75-99)
--- NOTE | 2016-10-04 12:31 | P.CNPUL ---
History of Present Illness Consult date: 10/04/16 Requesting physician: Shekhar Gold Reason for consult: abnormal CXR/CT Chief complaint: Worsening shortness of breath History of present illness: This is a very pleasant 76-year-old female patient who follows with Dr. Dooley as her primary care physician. She has a history of hyperlipidemia, hypertension, obstructive sleep apnea, hypothyroidism. She says a history of chronic lymphocytic leukemia follows with Dr. Gomez for the same. She also has a history of severe oxygen dependent chronic obstructive pulmonary disease and follows with Dr. Zaragoza in our office. She does have a significant smoking history of 50 year plus pack per day. He had developed a 4-5 day episodes of worsening shortness of breath and presented here for the same. Her chest x-ray showed mild pulmonary vascular congestion and small pleural effusions with cardiomegaly. CT angiogram revealed no evidence of pulmonary embolism. There was again noted cardiomegaly with atelectasis at lung bases and small pleural effusions most likely secondary to heart failure. There is also interstitial fibrotic changes along with emphysema. 4 cm descending aortic aneurysm. An echocardiogram reveals preserved left ventricular systolic function with estimated ejection fraction 55-60%. RVSP 26 mmHg. No evidence of pulmonary hypertension. He is seen today in consultation on the selective care unit. She is awake and alert in no acute distress. States she is breathing easier today as compared to yesterday. She did have elevated white count of 21.5, hemoglobin 9.9, creatinine 1.20 with initial presentation of 0.95 prior to CTA. Her BNP 1878, troponins negative 3. He has been initiated on bronchodilators 4 times a day and when necessary along with Tessalon Perles, Pulmicort inhalations twice a day and IV Solu-Medrol. She is also started on Lasix 40 mg IV every 8 hours. He is requiring 6 L of high flow nasal cannula to maintain O2 saturations in the low 90s. She's been hemodynamically stable. Review of Systems 14 point review of system was conducted. All negative other than as mentioned in HPI. Past Medical History Past Medical History: Cancer, Heart Failure, COPD, Hyperlipidemia, Hypertension , Sleep Apnea/CPAP/BIPAP, Thyroid Disorder Additional Past Medical History / Comment(s): CLL. sleep apnea. macular degeneration. Skin ca History of Any Multi-Drug Resistant Organisms: None Reported Past Surgical History: Heart Catheterization With Stent, Tonsillectomy Additional Past Surgical History / Comment(s): d & c Past Anesthesia/Blood Transfusion Reactions: No Reported Reaction Date of Last Stent Placement:: 2007 Past Psychological History: No Psychological Hx Reported Smoking Status: Former smoker Past Alcohol Use History: Daily Past Drug Use History: None Reported - Past Family History Mother Family Medical History: Congestive Heart Failure (CHF) Father Family Medical History: No Reported History Additional Family Medical History / Comment(s): "Alcohol problems" Chirrosis Medications and Allergies Home Medications Medication Instructions Recorded Confirmed Type Albuterol Inhaler [Ventolin Hfa 1 - 2 puff INHALATION RT-Q6H PRN 10/03/16 History Inhaler] Arformoterol Tartrate [Brovana] 15 mcg INHALATION RT-BID 10/03/16 10/03/16 History Aspirin EC [Ecotrin Low Dose] 81 mg PO DAILY 10/03/16 10/03/16 History Benzonatate [Tessalon Perles] 100 mg PO TID PRN 10/03/16 10/03/16 History Budesonide [Pulmicort] 0.5 mg INHALATION RT-BID 10/03/16 10/03/16 History Carvedilol [Coreg] 12.5 mg PO BID 10/03/16 10/03/16 History Clotrimazole/Betamethasone Dip 1 applic TOPICAL BID 10/03/16 10/03/16 History [Lotrisone Cream] Docusate [Colace] 100 mg PO BID 10/03/16 10/03/16 History Fluticasone Nasal [place] [Flonase 1 spray EA NOSTRIL DAILY 10/03/16 10/03/16 History Nasal [place]] Furosemide [Lasix] 40 mg PO DAILY 10/03/16 10/03/16 History LORazepam [Ativan] 0.5 mg PO BID PRN 10/03/16 10/03/16 History Levothyroxine Sodium [Synthroid] 100 mcg PO DAILY 10/03/16 10/03/16 History Loratadine 10 mg PO DAILY PRN 10/03/16 10/03/16 History Losartan Potassium [Cozaar] 50 mg PO DAILY 10/03/16 10/03/16 History Multivitamins, Thera [Multivitamin 1 tab PO DAILY 10/03/16 10/03/16 History (formulary)] Nitroglycerin Sl Tabs [Nitrostat] 0.4 mg SUBLINGUAL Q5M PRN 10/03/16 10/03/16 History Omeprazole [PriLOSEC] 20 mg PO DAILY 10/03/16 10/03/16 History Pseudoephedrine 12Hr [Sudafed 12Hr] 120 mg PO DAILY 10/03/16 10/03/16 History Ranibizumab [Lucentis] 0 ml LEFT EYE 10/03/16 History Ranibizumab [Lucentis] 0 ml RIGHT EYE 10/03/16 History Sennosides [Senna] 8.6 mg PO BID 10/03/16 10/03/16 History Tiotropium [place] [Spiriva] 1 cap INHALATION RT-DAILY 10/03/16 10/03/16 History Vit C/E/Zn/Coppr/Lutein/Zeaxan 2 cap PO DAILY 10/03/16 10/03/16 History [Preservision Areds 2 Softgel] amLODIPine [Norvasc] 10 mg PO DAILY 10/03/16 10/03/16 History hydrALAZINE HCL [Hydralazine HCl] 25 mg PO BID 10/03/16 10/03/16 History Allergies Allergy/AdvReac Type Severity Reaction Status Date / Time No Known Allergies Allergy Verified 10/03/16 14:44 Physical Exam Vitals: Vital Signs Temp Pulse Pulse Resp BP BP BP 10/04/16 11:48 96 10/04/16 11:42 92 10/04/16 08:35 100 10/04/16 08:27 96 10/04/16 08:26 96 10/04/16 08:17 94 10/04/16 08:00 95 18 10/04/16 07:54 96.9 F L 95 18 101/55 10/04/16 04:00 97.5 F L 89 20 104/55 10/04/16 00:00 97.6 F 95 20 109/65 10/03/16 20:07 112 H 10/03/16 20:00 97.1 F L 109 H 80 20 123/68 10/03/16 19:16 102 H 18 119/57 10/03/16 19:05 97.1 F L 80 20 123/68 10/03/16 19:00 10/03/16 18:42 10/03/16 18:15 102 H 18 110/57 10/03/16 17:15 92 20 111/59 10/03/16 16:49 91 10/03/16 16:45 121/72 10/03/16 16:37 91 10/03/16 16:27 10/03/16 16:15 90 18 121/72 10/03/16 15:10 92 16 115/61 10/03/16 14:26 10/03/16 13:44 97.7 F 88 18 126/60 Pulse Ox 10/04/16 11:48 10/04/16 11:42 10/04/16 08:35 10/04/16 08:27 10/04/16 08:26 10/04/16 08:17 92 L 10/04/16 08:00 10/04/16 07:54 90 L 10/04/16 04:00 93 L 10/04/16 00:00 90 L 10/03/16 20:07 10/03/16 20:00 89 L 10/03/16 19:16 90 L 10/03/16 19:05 89 L 10/03/16 19:00 87 L 10/03/16 18:42 89 L 10/03/16 18:15 89 L 10/03/16 17:15 90 L 10/03/16 16:49 10/03/16 16:45 93 L 10/03/16 16:37 10/03/16 16:27 83 L 10/03/16 16:15 87 L 10/03/16 15:10 85 L 10/03/16 14:26 91 L 10/03/16 13:44 86 L Intake and Output 10/03/16 10/04/16 10/04/16 22:59 06:59 14:59 Intake Total 200 Output Total 200 500 Balance -200 -500 200 Intake: Oral 200 Output: Urine 200 500 Other: Voiding Method Toilet Toilet Toilet # Voids 1 1 Weight 90.718 kg 91.1 kg GENERAL EXAM: Obese. Alert, active, comfortable in no apparent distress. HEAD: Normocephalic. EYES: Normal reaction of pupils, equal size. NOSE: Clear with pink turbinates. THROAT: No erythema or exudates. NECK: No masses, no JVD. CHEST: No chest wall deformity. LUNGS: Equal air entry with echoes in the posterior bases.. CVS: S1 and S2 normal with no audible murmurs, regular rhythm. ABDOMEN: No hepatosplenomegaly, normal bowel sounds, no guarding or rigidity. SPINE: No scoliosis or deformity SKIN: No rashes CENTRAL NERVOUS SYSTEM: No focal deficits, tone is normal in all 4 extremities. Extremities: There is trace peripheral edema. No clubbing, no cyanosis. Peripheral pulses are intact. Results - Laboratory Findings CBC and BMP: 10/03/16 14:24 10/04/16 02:15 PT/INR, D-dimer PT 10.5 sec (9.0-12.0) 10/03/16 14:24 INR 1.0 (<1.2) 10/03/16 14:24 D-Dimer 0.83 mg/L FEU (<0.60) H 10/03/16 14:24 Abnormal lab findings: Abnormal Labs 10/03/16 10/03/16 10/03/16 14:24 14:24 14:24 WBC 21.5 H RBC 3.09 L Hgb 9.9 L Hct 31.0 L MCV 100.6 H Lymphocytes # (Manual) 16.8 H D-Dimer Sodium Potassium 5.3 H Chloride 89 L Carbon Dioxide 39 H BUN 25 H Creatinine Glucose 109 H POC Glucose (mg/dL) Total Creatine Kinase 26 L Total Protein 6.2 L Cholesterol LDL Cholesterol, Calc HDL Cholesterol 10/03/16 10/03/16 10/04/16 14:24 20:52 02:15 WBC RBC Hgb Hct MCV Lymphocytes # (Manual) D-Dimer 0.83 H Sodium Potassium Chloride Carbon Dioxide BUN Creatinine Glucose POC Glucose (mg/dL) Total Creatine Kinase <20 L 23 L Total Protein Cholesterol LDL Cholesterol, Calc HDL Cholesterol 10/04/16 10/04/16 02:15 05:56 WBC RBC Hgb Hct MCV Lymphocytes # (Manual) D-Dimer Sodium 135 L Potassium Chloride 86 L Carbon Dioxide 35 H BUN 37 H Creatinine 1.20 H Glucose 379 H POC Glucose (mg/dL) 340 H Total Creatine Kinase Total Protein Cholesterol 237 H LDL Cholesterol, Calc 172 H HDL Cholesterol 39 L - Diagnostic Findings Chest x-ray: image reviewed CT scan - chest: image reviewed Assessment and Plan Plan: Impression: #1 Acute exacerbation of oxygen dependent chronic obstructive pulmonary disease. #2 Acute exacerbation of suspected diastolic congestive heart failure. #3 Acute and chronic hypoxic respiratory failure secondary to above. #4 Chronic lymphocytic leukemia. #5 Obesity. #6 Hyperlipidemia. #7 History of hypertension. #8 Obstructive sleep apnea. #9 Hypothyroidism. #10 History of 50 year pack per day smoking. #11 Macular degeneration. Her grafts plan: The patient was seen and evaluated by Dr. Shoemaker. Her chest x-ray and CAT scans were reviewed. He feels this is more of a congestive heart failure type picture. We'll go ahead and treat her for COPD exacerbation. Continue IV Solu- Medrol. Continue to diurese. Increase her activity as tolerated. We'll continue to follow. Time with Patient: Greater than 30
[2016-10-04] MEDS: MULTIVITAMINS, THERA 1 EACH TAB PO SCH (12:55)
[2016-10-04 13:56] VITALS: BMI 34.4
--- NOTE | 2016-10-04 13:58 | P.PN ---
Progress Note - Text Date of service: 10/04/2016 Presenting complaint short of breath Interval history: This is a 76 year patient be followed by Dr. Dooley. Patient chronic stable medical conditions include hyperlipidemia, hypertension, CLL, coronary artery disease with stent, osteoarthritis. Patient presents with worsening short of breath sounds wheezing some edema has called Dr. Zaragoza's office and patient's directives the ER. Patient pulse ox dropped down to the 70s. Patient has a slight cough has some chills but no fever and decreased appetite rundown. Patient rather tired and rundown. Admitting diagnosis CHF exacerbation and COPD exacerbation. 10/04/2016: Patient feels a bit better. Sitting up. Did tolerate some breakfast. Did get some sleep. Minimal cough. Wheezing is better. Review of systems: Was done for constitutional, cardiovascular, GI, pulmonary. relevant finding as above Current medications are reviewed and include IV Lasix, nebulized bronchodilators, IV Solu-Medrol Assessment: VITAL SIGNS: 97, 91, 20, 101/65, negative and personal 6 L GENERAL: Sitting at the edge of the bed, not in distress looks better compared to yesterday. EYES: Pupils equal. Conjunctiva normal. NECK: JVD unable to assess; masses not palpable. HEART: First and second heart sounds are normal; some edema present. LUNGS: Respiratory rate increased, diminished breath sounds and wheezing. ABDOMEN: Soft, nontender, liver spleen not palpable, no masses palpable. PSYCH: Alert and oriented x3; mood and affect anxious appearingl. Musculoskeletal: Evidence of osteoarthritis in multiple joints. 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 Patient clinically looking better. Await input from cardiology and pulmonary. Care was discussed with the patient. Questions were answered. Cut back on Solu-Medrol
[2016-10-04] MEDS ORDERED: LEVOFLOXACIN 750MG-D5W PMX 750 MG in DEXTROSE/WATER 1 150ML.BAG IVPB SCH (17:00)
[2016-10-04 17:09] LABS: Glucose,Whole Blood 284 mg/dL (75-99)
[2016-10-04 20:50] LABS: Glucose,Whole Blood 260 mg/dL (75-99)
[2016-10-05 05:50] LABS: Glucose,Whole Blood 265 mg/dL (75-99)
[2016-10-05] MEDS: LEVOTHYROXINE 100 MCG TAB PO SCH (06:43)
[2016-10-05] MEDS: CARVEDILOL 12.5 MG TAB PO SCH ×2 (06:43→17:15)
[2016-10-05] MEDS: INSULIN LISPRO (humaLOG) 300 UNIT/3 ML VIAL SQ SCH ×3 (06:43→17:15)
[2016-10-05] MEDS: PANTOPRAZOLE 40 MG TABLET PO SCH (06:43)
[2016-10-05 07:07] LABS: Calcium 8.9 mg/dL (8.4-10.2); Potassium 4.2 mmol/L (3.5-5.1)
[2016-10-05] MEDS: DOCUSATE 100 MG CAP PO SCH (08:53)
[2016-10-05] MEDS: SENNOSIDES 8.6 MG TAB PO SCH (08:53)
[2016-10-05] MEDS: amLODIPine 10 MG TAB PO SCH (08:53)
[2016-10-05] MEDS: hydrALAZINE HCL 25 MG TAB PO SCH (08:53)
[2016-10-05] MEDS: FUROSEMIDE 10 MG/ML 4 ML VIAL IV SCH ×2 (08:53→15:15)
[2016-10-05] MEDS: VIT A,C & E-LUTEIN-MINERALS 1 EACH TAB PO SCH (08:53)
[2016-10-05] MEDS: LOSARTAN 50 MG TAB PO SCH (08:54)
[2016-10-05] MEDS: PSEUDOEPHEDRINE 12HR 120 MG TABLET.ER PO SCH (08:54)
[2016-10-05] MEDS: CLOTRIMAZOLE/BETAMETH 1-0.05% CREAM 45 GM TUBE TOPICAL SCH (08:54)
[2016-10-05] MEDS: methylPREDNISolone SOD SUCCI 40 MG/ML 1 ML VIAL IV SCH (08:54)
[2016-10-05] MEDS: FLUTICASONE 50MCG/SPRAY NASAL 16GM EA NOSTRIL SCH (08:54)
[2016-10-05] MEDS ORDERED: ASPIRIN 81 MG CHEW PO SCH (09:00)
[2016-10-05] MEDS: IPRATROPIUM-ALBUTEROL 3 ML NEB INHALATION SCH ×3 (09:26→16:49)
[2016-10-05] MEDS: BUDESONIDE 0.5 MG/2 ML NEBU INHALATION SCH (09:26)
[2016-10-05] MEDS: FORMOTEROL FUMARATE 20 MCG/2 ML NEBU INHALATION SCH (09:27)
[2016-10-05] MEDS ORDERED: PSEUDOEPHEDRINE 12HR 120 MG TABLET.ER PO PRN (10:23)
[2016-10-05 11:34] LABS: Glucose,Whole Blood 224 mg/dL (75-99)
[2016-10-05] MEDS: MULTIVITAMINS, THERA 1 EACH TAB PO SCH (12:03)
--- NOTE | 2016-10-05 15:24 | PN ---
A 76-year-old female who sees Dr. Dooley in [place] as her primary doctor. She sees Dr. Zaragoza in our office for her underlying COPD. Comes into the Emergency Room with complaints of shortness of breath. Her shortness of breath is probably multifactorial, mostly related to underlying CHF but also to a component of COPD. She does have a significant smoking history in the past. There is no evidence of PE and pulmonary CT angiogram and her chest x-ray and CT angiogram are most consistent with some fluid overload. She is feeling better today, less short of breath, not coughing or wheezing, not producing any phlegm. No fever, no chills. She was put on all the usual medications. Currently, vital signs are stable, temperature 97.5, heart rate 81, respiratory rate 20, blood pressure 123/69, mean 80, 4 L saturation 92%. There is no acute distress. HEENT examination is grossly unremarkable. Mucous membranes are moist. No oral lesions. NECK: Supple, full range of motion. No adenopathy or thyromegaly. Neck veins are flat. Cardiovascular examination, regular rhythm and rate. Heart sounds were distant. No S1, S2. No S3. No S4. No audible murmurs. The lungs reveal some bibasilar crackles. Breath sounds are diminished. The breath sounds are equal bilaterally. No rhonchi or wheezes. Abdomen is soft, bowel sounds are heard. Extremities are intact. No edema. No cyanosis or clubbing. Skin without rash. Neurological examination is brief but nonfocal. Lab data is reviewed. Sodium 138, potassium 4.1, chloride is 89, CO2 is 38, BUN and creatinine were 48 and 1.09. Chest x-ray is consistent with fluid overload. CT angiogram is consistent with fluid overload. Medications are reviewed. ASSESSMENT: 1. Shortness of breath, multifactorial, mostly related to underlying fluid overload but also there is a component of chronic obstructive pulmonary disease. 2. Acute exacerbation of suspected diastolic congestive heart failure. 3. Acute on chronic hypoxemic respiratory failure. 4. Chronic lymphocytic leukemia. 5. Obesity. 6. Hyperlipidemia. 7. History of hypertension. 8. History of sleep apnea syndrome. 9. Hypothyroidism. 10. History of previous heavy tobacco use. 11. Macular degeneration. PLAN: The patient is on appropriate medications. The discharge planning can begin. No additional recommendations are made. Medications, labs and x-rays are all reviewed. Prognosis is guarded. MTDD
--- NOTE | 2016-10-05 16:00 | P.PN ---
Subjective This is a 76-year-old female with prior history of smoking, COPD, hypertension, hyperlipidemia, sleep apnea, hypothyroidism, coronary artery disease with 2 prior stent placements, she follows with Dr. Lewis at [facility]. Patient presents to the hospital with symptoms of progressively worsening shortness of breath with associated mild chills. She states that she has had several exacerbations of COPD, and this felt very similar to that. She does state that she's had occasional chest heaviness and tightness which she also gets with her COPD exacerbations. Patient denies any chest pain which reminds her of what she had prior to her stent placements. She also states that she had a recent admission to [facility] with exacerbation of COPD. EKG on arrival here shows a normal sinus rhythm with nonspecific ST-T wave changes in the anterior leads. Subsequent EKG which was performed this morning shows normal sinus rhythm with ST-T wave changes anteriorly. Chest x-ray revealed mild pulmonary vascular congestion and small pleural effusions likely related to underlying congestive heart failure. CT of the chest was performed which did not reveal any evidence for pulmonary embolism. 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 Patchy atelectasis at the lung bases with small pleural effusions which could represent congestive heart failure. Interstitial fibrotic changes in the lungs associated with emphysema. Mild mediastinotomy bronchial adenopathy. Blood pressure on arrival here 126/60 with heart rate in the 80s, 86% on 4 L of oxygen on arrival. White blood cell count on arrival here 21.5, hemoglobin 9.9, d-dimer 0.8. Sodium 138, potassium 5.3, chloride 89 , CO2 39, BUN 25, creatinine 0.9. BUN 37 and creatinine 1.2 this morning. Troponins have been negative 3, BNP level 1870. Cholesterol 237, LDL 172, HDL 39, triglycerides 132. Patient is currently on IV Lasix. She was also started on Solu-Medrol and breathing treatments. Overall she states she's feeling mildly better today. 10/05/2016. Patient diuresed well on IV Lasix, overall is feeling better today. She did have exacerbation of COPD but there was also evidence of mild congestive cardiac failure.BUN 48, creat 1.09. Arrrangements are being made for the patient to be discharged home today. On follow-up she's been instructed to follow-up with her weight yardage checker in one week. Objective - Vital Signs Vital signs: Vital Signs Temp 97.5 F L 10/05/16 11:57 Pulse 81 10/05/16 11:57 Resp 20 10/05/16 11:57 BP 123/59 10/05/16 11:57 Pulse Ox 90 L 10/05/16 11:57 Intake & Output 10/04/16 10/05/16 10/05/16 18:59 06:59 18:59 Intake Total 626 10 360 Output Total 1000 450 Balance 626 -990 -90 Weight 91.1 kg 90.8 kg Intake: IV 10 10 0.9 10 10 Oral 616 360 Output: Urine 1000 450 Other: Voiding Method Toilet Toilet Toilet - Exam PHYSICAL EXAMINATION: HEENT: Head is atraumatic, normocephalic. Pupils equal, round. Neck is supple. There is no elevated jugular venous pressure. HEART EXAMINATION: Heart S1 S2 1 systolic murmur is heard. CHEST EXAMINATION: Lungs reveal improvement in air entry bilaterally. ABDOMEN: Soft, nontender. Bowel sounds are heard. No organomegaly noted]. EXTREMITIES:[ 2+ peripheral pulses with no evidence of peripheral edema and no calf tenderness noted]. NEUROLOGIC [patient is awake, alert and oriented -3.] - Labs CBC & Chem 7: 10/03/16 14:24 10/05/16 06:32 Labs: Abnormal Lab Results - Last 24 Hours (Table) 10/04/16 10/04/16 10/05/16 Range/Units 17:07 20:48 05:49 Chloride (98-107) mmol/L Carbon Dioxide (22-30) mmol/L BUN (7-17) mg/dL Creatinine (0.52-1.04) mg/dL Glucose (74-99) mg/dL POC Glucose (mg/dL) 284 H 260 H 265 H (75-99) mg/dL 10/05/16 10/05/16 Range/Units 06:32 11:29 Chloride 89 L (98-107) mmol/L Carbon Dioxide 38 H (22-30) mmol/L BUN 48 H (7-17) mg/dL Creatinine 1.09 H (0.52-1.04) mg/dL Glucose 213 H (74-99) mg/dL POC Glucose (mg/dL) 224 H (75-99) mg/dL Assessment and Plan Plan: Assessment and plan #1 symptoms of progressively worsening shortness of breath , likely combination of exacerbation of COPD, and mild congestive cardiac failure. LV function unknown #2 known history of coronary artery disease with 2 prior stent placements in the past #3 hypertension #4 hyperlipidemia #5 50 year history of smoking #6 COPD #7 sleep apnea #8 hypothyroidism #9 CLL Plan Echocardiogram with Doppler study was performed which revealed an ejection fraction of 55-60%. From cardiology's perspective, patient may be able to be discharged home today. She's been instructed to follow-up with her weight yardage checker as an outpatient in one week. DNP note has been reviewed, I agree with a documented findings and plan of care. Patient was seen and examined.
[2016-10-05 16:09] VITALS: BP 111/61; PULSE 84; RESP 18; TEMP 98.1
[2016-10-05 16:28] LABS: Glucose,Whole Blood 240 mg/dL (75-99)
--- NOTE | 2016-10-05 16:53 | P.DS ---
Providers Date of admission: 10/03/16 18:42 Expected date of discharge: 10/05/16 Attending physician: Shekhar Gold Consults: 10/03/16 18:40 Consult Physician Stat Consulting Provider: Bernard Zaragoza Consult Reason/Comments: copd Do you want consulting provider notified?: Yes 10/03/16 18:42 Consult Physician Urgent Consulting Provider: Reyna Owens Consult Reason/Comments: heart failure Do you want consulting provider notified?: Yes Primary care physician: Radha Dooley Hospital Course: Hospital course: This is a 76 year patient be followed by Dr. Dooley. Patient chronic stable medical conditions include hyperlipidemia, hypertension, CLL, coronary artery disease with stent, osteoarthritis. Patient presents with worsening short of breath sounds wheezing some edema has called Dr. Zaragoza's office and patient's directives the ER. Patient pulse ox dropped down to the 70s. Patient has a slight cough has some chills but no fever and decreased appetite rundown. Patient rather tired and rundown. Admitting diagnosis CHF exacerbation and COPD exacerbation. Doing much better. Pulse ox is improved. Seen by Dr. Shoemaker from pulmonary and okayed be discharged. Also seen by Dr. Bolton from cardiology, and okayed to discharge. I discussed with the patient and with cardiology. Discharge planning more than 35 minutes Physical examination: Decreased breath sounds and mild wheezing, cardiovascular first seconds are normal, psych AO 3, Labs: Blood urea nitrogen 48, creatinine 1.09 Final diagnoses: Acute congestive heart failure exacerbation, secondary to diastolic dysfunction EF 55-60% secondary to hypertensive heart disease Acute COPD exacerbation in an ex-smoker Hyperlipidemia Essential hypertension with hypertensive heart disease Obstetric sleep apnea does not use CPAP machine Chronic lymphocytic leukemia explaining patient's elevated white count Coronary artery disease with prior history of stent 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 Obesity BMI 34.3 Acute on chronic hypoxic respiratory failure due to CHF and COPD, present on admission Patient Condition at Discharge: Fair Plan - Discharge Summary New Discharge Prescriptions: New predniSONE See Taper PO DAILY #30 tab Budesonide [Pulmicort] 0.5 mg INHALATION BID #1 neb Continue Albuterol Inhaler [Ventolin Hfa Inhaler] 1 - 2 puff INHALATION RT-Q6H PRN PRN Reason: Shortness Of Breath amLODIPine [Norvasc] 10 mg PO DAILY Arformoterol Tartrate [Brovana] 15 mcg INHALATION RT-BID Aspirin EC [Ecotrin Low Dose] 81 mg PO DAILY Benzonatate [Tessalon Perles] 100 mg PO TID PRN PRN Reason: Cough Carvedilol [Coreg] 12.5 mg PO BID Clotrimazole/Betamethasone Dip [Lotrisone Cream] 1 applic TOPICAL BID Fluticasone Nasal [place] [Flonase Nasal [place]] 1 spray EA NOSTRIL DAILY Furosemide [Lasix] 40 mg PO DAILY hydrALAZINE HCL [Hydralazine HCl] 25 mg PO BID Levothyroxine Sodium [Synthroid] 100 mcg PO DAILY Loratadine 10 mg PO DAILY PRN PRN Reason: Allergy Symptoms LORazepam [Ativan] 0.5 mg PO BID PRN PRN Reason: Anxiety Losartan Potassium [Cozaar] 50 mg PO DAILY Multivitamins, Thera [Multivitamin (formulary)] 1 tab PO DAILY Nitroglycerin Sl Tabs [Nitrostat] 0.4 mg SUBLINGUAL Q5M PRN PRN Reason: Chest Pain Omeprazole [PriLOSEC] 20 mg PO DAILY Pseudoephedrine 12Hr [Sudafed 12 Hour] 120 mg PO DAILY Sennosides [Senna] 8.6 mg PO BID Tiotropium [place] [Spiriva] 1 cap INHALATION RT-DAILY Vit C/E/Zn/Coppr/Lutein/Zeaxan [Preservision Areds 2 Softgel] 2 cap PO DAILY Ranibizumab [Lucentis] 0 ml LEFT EYE Ranibizumab [Lucentis] 0 ml RIGHT EYE Discontinued Budesonide [Pulmicort] 0.5 mg INHALATION RT-BID Docusate [Colace] 100 mg PO BID Discharge Medication List Albuterol Inhaler [Ventolin Hfa Inhaler] 1 - 2 puff INHALATION RT-Q6H PRN [History] Arformoterol Tartrate [Brovana] 15 mcg INHALATION RT-BID 10/03/16 [History] Aspirin EC [Ecotrin Low Dose] 81 mg PO DAILY 10/03/16 [History] Benzonatate [Tessalon Perles] 100 mg PO TID PRN 10/03/16 [History] Carvedilol [Coreg] 12.5 mg PO BID 10/03/16 [History] Clotrimazole/Betamethasone Dip [Lotrisone Cream] 1 applic TOPICAL BID 10/03/16 [ History] Fluticasone Nasal [place] [Flonase Nasal [place]] 1 spray EA NOSTRIL DAILY 10/03/16 [History] Furosemide [Lasix] 40 mg PO DAILY 10/03/16 [History] LORazepam [Ativan] 0.5 mg PO BID PRN 10/03/16 [History] Levothyroxine Sodium [Synthroid] 100 mcg PO DAILY 10/03/16 [History] Loratadine 10 mg PO DAILY PRN 10/03/16 [History] Losartan Potassium [Cozaar] 50 mg PO DAILY 10/03/16 [History] Multivitamins, Thera [Multivitamin (formulary)] 1 tab PO DAILY 10/03/16 [History ] Nitroglycerin Sl Tabs [Nitrostat] 0.4 mg SUBLINGUAL Q5M PRN 10/03/16 [History] Omeprazole [PriLOSEC] 20 mg PO DAILY 10/03/16 [History] Pseudoephedrine 12Hr [Sudafed 12 Hour] 120 mg PO DAILY 10/03/16 [History] Ranibizumab [Lucentis] 0 ml LEFT EYE 10/03/16 [History] Ranibizumab [Lucentis] 0 ml RIGHT EYE 10/03/16 [History] Sennosides [Senna] 8.6 mg PO BID 10/03/16 [History] Tiotropium [place] [Spiriva] 1 cap INHALATION RT-DAILY 10/03/16 [History] Vit C/E/Zn/Coppr/Lutein/Zeaxan [Preservision Areds 2 Softgel] 2 cap PO DAILY [History] amLODIPine [Norvasc] 10 mg PO DAILY 10/03/16 [History] hydrALAZINE HCL [Hydralazine HCl] 25 mg PO BID 10/03/16 [History] Budesonide [Pulmicort] 0.5 mg INHALATION BID #1 neb 10/05/16 [Rx] predniSONE See Taper PO DAILY #30 tab 10/05/16 [Rx] Follow up Appointment(s)/Referral(s): Radha Dooley MD [Primary Care Provider] - 1 Week Bernard Zaragoza MD [STAFF PHYSICIAN] - 1-2 days Ambulatory/Diagnostic Orders: Basic Metabolic Panel [LAB.AMB] Location: Determined By Patient Complete Blood Count w/diff [LAB.AMB] Location: Determined By Patient Activity/Diet/Wound Care/Special Instructions: [facility] [phone] consistent carb diet Discharge Disposition: HOME WITH HOME HEALTH SERVICES
[2016-10-05] MEDS ORDERED: SYMBICORT 160-4.5 MCG INHALER INHALATION SCH (20:00)
== END 2016-10-05 17:47 | disposition home health service (06) | DRG 291 ==
LOC: EC 13:15 → 6SEL 18:42
PROVIDERS: ADMIT Hospitalist; ATTEND Hospitalist
DX: I11.0 Hypertensive heart disease with heart failure (principal); J96.21 Acute and chronic respiratory failure with hypoxia; C91.10 Chronic lymphocytic leukemia of B-cell type not having achieved remission; J44.1 Chronic obstructive pulmonary disease with (acute) exacerbation; I50.33 Acute on chronic diastolic (congestive) heart failure; G47.33 Obstructive sleep apnea (adult) (pediatric); E78.5 Hyperlipidemia, unspecified; R59.0 Localized enlarged lymph nodes; I25.10 Atherosclerotic heart disease of native coronary artery without angina pectoris; I71.2 Thoracic aortic aneurysm, without rupture; E03.9 Hypothyroidism, unspecified; R53.83 Other fatigue; R68.83 Chills (without fever); H35.30 Unspecified macular degeneration; M19.91 Primary osteoarthritis, unspecified site; E66.9 Obesity, unspecified; Z95.5 Presence of coronary angioplasty implant and graft; Z87.891 Personal history of nicotine dependence; Z79.899 Other long term (current) drug therapy; Z82.49 Family history of ischemic heart disease and other diseases of the circulatory system; Z79.82 Long term (current) use of aspirin; Z79.51 Long term (current) use of inhaled steroids; Z71.3 Dietary counseling and surveillance; Z91.19 Patient's noncompliance with other medical treatment and regimen; Z81.1 Family history of alcohol abuse and dependence; Z83.79 Family history of other diseases of the digestive system; Z85.828 Personal history of other malignant neoplasm of skin; Z87.42 Personal history of other diseases of the female genital tract; Z99.81 Dependence on supplemental oxygen
CPT/HCPCS: 36415; 71020; 71275; 80048; 80053; 80061; 82550; 82553; 83036; 83735; 83880; 84484; 85025; 85379; 85610; 85730; 93005; 93306; 94640; 94760; 96374; 96375; 99285

== ENCOUNTER 2019-05-09 13:42 | Inpatient (IN) | payer MEDICARE, BC ==
[2019-05-09] MEDS ORDERED: methylPREDNISolone SOD SUCCI 125 MG/2 ML VIAL IV STA (14:25)
[2019-05-09 14:35] LABS: Albumin 4.5 g/dL (3.5-5.0); Potassium 4.1 mmol/L (3.5-5.1); Total Bilirubin 0.5 mg/dL (0.2-1.3); Total Protein 6.9 g/dL (6.3-8.2)
[2019-05-09 14:39] LABS: Partial Thromboplastin Time 21.6 sec (22.0-30.0); Prothrombin Time 10.1 sec (9.0-12.0)
--- NOTE | 2019-05-09 14:43 | ED ---
SOB HPI - General Chief Complaint: Shortness of Breath Stated Complaint: low pluse ox Time Seen by Provider: 05/09/19 14:00 Source: patient, RN notes reviewed Mode of arrival: wheelchair Limitations: no limitations - History of Present Illness Initial Comments: This is a 78-year-old female with a history of COPD who is on 4 L of oxygen who presents with complaints of hypoxemia with exertion. She denies any cough fevers chills nausea vomiting sweats chest pain or other symptoms she states that she is supposed to have her pulse ox between 80-92. Dropped down 69 today with exertion. At rest it seems be within normal limits. She has no other complaints at this time. She believes she may need some steroids. MD Complaint: shortness of breath - Related Data Home Medications Medication Instructions Recorded Confirmed Albuterol Inhaler [Ventolin Hfa 1 - 2 puff INHALATION RT-Q6H PRN 10/03/16 10/03/16 Inhaler] Arformoterol Tartrate [Brovana] 15 mcg INHALATION RT-BID 10/03/16 10/03/16 Aspirin EC [Ecotrin Low Dose] 81 mg PO DAILY 10/03/16 10/03/16 Benzonatate [Tessalon Perles] 100 mg PO TID PRN 10/03/16 10/03/16 Carvedilol [Coreg] 12.5 mg PO BID 10/03/16 10/03/16 Clotrimazole/Betamethasone Dip 1 applic TOPICAL BID 10/03/16 10/03/16 [Lotrisone Cream] Fluticasone Nasal [place] [Flonase 1 spray EA NOSTRIL DAILY 10/03/16 10/03/16 Nasal [place]] Furosemide [Lasix] 40 mg PO DAILY 10/03/16 10/03/16 LORazepam [Ativan] 0.5 mg PO BID PRN 10/03/16 10/03/16 Levothyroxine Sodium [Synthroid] 100 mcg PO DAILY 10/03/16 10/03/16 Loratadine 10 mg PO DAILY PRN 10/03/16 10/03/16 Losartan Potassium [Cozaar] 50 mg PO DAILY 10/03/16 10/03/16 Multivitamins, Thera [Multivitamin 1 tab PO DAILY 10/03/16 10/03/16 (formulary)] Nitroglycerin Sl Tabs [Nitrostat] 0.4 mg SUBLINGUAL Q5M PRN 10/03/16 10/03/16 Omeprazole [PriLOSEC] 20 mg PO DAILY 10/03/16 10/03/16 Pseudoephedrine 12Hr [Sudafed 12 120 mg PO DAILY 10/03/16 10/03/16 Hour] Ranibizumab [Lucentis] 0 ml LEFT EYE 10/03/16 Ranibizumab [Lucentis] 0 ml RIGHT EYE 10/03/16 Sennosides [Senna] 8.6 mg PO BID 10/03/16 10/03/16 Tiotropium [place] [Spiriva] 1 cap INHALATION RT-DAILY 10/03/16 10/03/16 Vit C/E/Zn/Coppr/Lutein/Zeaxan 2 cap PO DAILY 10/03/16 10/03/16 [Preservision Areds 2 Softgel] amLODIPine [Norvasc] 10 mg PO DAILY 10/03/16 10/03/16 hydrALAZINE HCL 25 mg PO BID 10/03/16 10/03/16 Previous Rx's Medication Instructions Recorded Budesonide [Pulmicort] 0.5 mg INHALATION BID #1 neb 10/05/16 predniSONE See Taper PO DAILY #30 tab 10/05/16 Allergies Allergy/AdvReac Type Severity Reaction Status Date / Time No Known Allergies Allergy Verified 05/09/19 13:49 Review of Systems ROS Statement: Those systems with pertinent positive or pertinent negative responses have been documented in the HPI. ROS Other: All systems not noted in ROS Statement are negative. Past Medical History Past Medical History: Cancer, Heart Failure, COPD, Hyperlipidemia, Hypertension, Sleep Apnea/CPAP/BIPAP, Thyroid Disorder Additional Past Medical History / Comment(s): CLL. sleep apnea. macular degeneration. Skin ca History of Any Multi-Drug Resistant Organisms: None Reported Past Surgical History: Heart Catheterization With Stent, Tonsillectomy Additional Past Surgical History / Comment(s): d & c Past Anesthesia/Blood Transfusion Reactions: No Reported Reaction Date of Last Stent Placement:: 2007 Past Psychological History: No Psychological Hx Reported Smoking Status: Former smoker Past Alcohol Use History: Daily Past Drug Use History: None Reported - Past Family History Mother Family Medical History: Congestive Heart Failure (CHF) Father Family Medical History: No Reported History Additional Family Medical History / Comment(s): "Alcohol problems" Chirrosis General Exam - General Exam Comments Initial Comments: This is a well-developed well-nourished awake alert oriented 3 female Limitations: no limitations General appearance: alert, in no apparent distress Head exam: Present: atraumatic, normocephalic, normal inspection Eye exam: Present: normal appearance, PERRL, EOMI. Absent: scleral icterus, conjunctival injection, periorbital swelling ENT exam: Present: normal exam, mucous membranes moist Neck exam: Present: normal inspection. Absent: tenderness, meningismus, lymphadenopathy Respiratory exam: Present: normal lung sounds bilaterally. Absent: respiratory distress, wheezes, rales, rhonchi, stridor Cardiovascular Exam: Present: regular rate, normal rhythm, normal heart sounds. Absent: systolic murmur, diastolic murmur, rubs, gallop, clicks GI/Abdominal exam: Present: soft, normal bowel sounds. Absent: distended, te nderness, guarding, rebound, rigid Extremities exam: Present: normal inspection, full ROM, normal capillary refill. Absent: tenderness, pedal edema, joint swelling, calf tenderness Back exam: Present: normal inspection Neurological exam: Present: alert, oriented X3, CN II-XII intact Psychiatric exam: Present: normal affect, normal mood Skin exam: Present: warm, dry, intact, normal color. Absent: rash Course Vital Signs 05/09/19 05/09/19 05/09/19 13:46 14:15 14:41 Temperature 97.6 F Pulse Rate 82 87 Respiratory 18 20 Rate Blood Pressure 118/64 114/58 O2 Sat by Pulse 86 L 90 L 90 L Oximetry 05/09/19 15:55 Temperature 98.2 F Pulse Rate 85 Respiratory 20 Rate Blood Pressure 129/68 O2 Sat by Pulse 86 L Oximetry Medical Decision Making - Medical Decision Making Patient did have elevation of her troponin 0.111 she denies any chest pain she has had exertional dyspnea going on however for last several days. After long discussions the patient and her daughters will be admitted to this facility for cardiology consultation Dr. Zaragoza will also be consulted - Lab Data Result diagrams: 05/09/19 14:10 05/09/19 14:10 Lab Results 05/09/19 05/09/19 05/09/19 Range/Units 14:10 14:10 14:10 WBC (3.8-10.6) k/uL RBC (3.80-5.40) m/uL Hgb (11.4-16.0) gm/dL Hct (34.0-46.0) % MCV (80.0-100.0) fL MCH (25.0-35.0) pg MCHC (31.0-37.0) g/dL RDW (11.5-15.5) % Plt Count (150-450) k/uL Neutrophils % (Manual) % Lymphocytes % (Manual) % Monocytes % (Manual) % Neutrophils # (Manual) (1.3-7.7) k/uL Lymphocytes # (Manual) (1.0-4.8) k/uL Monocytes # (Manual) (0-1.0) k/uL Nucleated RBCs (0-0) /100 WBC Polychromasia Hypochromasia Macrocytosis Stomatocytes PT 10.1 (9.0-12.0) sec INR 1.0 (<1.2) APTT 21.6 L (22.0-30.0) sec Sodium 139 (137-145) mmol/L Potassium 4.1 (3.5-5.1) mmol/L Chloride 94 L (98-107) mmol/L Carbon Dioxide 37 H (22-30) mmol/L Anion Gap 8 mmol/L BUN 43 H (7-17) mg/dL Creatinine 1.08 H (0.52-1.04) mg/dL Est GFR (CKD-EPI)AfAm 57 (>60 ml/min/1.73 sqM) Est GFR (CKD-EPI)NonAf 49 (>60 ml/min/1.73 sqM) Glucose 202 H (74-99) mg/dL Plasma Lactic Acid Charles 2.0 (0.7-2.0) mmol/L Calcium 9.0 (8.4-10.2) mg/dL Magnesium (1.6-2.3) mg/dL Total Bilirubin 0.5 (0.2-1.3) mg/dL AST 18 (14-36) U/L ALT 14 (4-34) U/L Alkaline Phosphatase 88 (38-126) U/L Creatine Kinase (30-135) U/L Troponin I (0.000-0.034) ng/mL Total Protein 6.9 (6.3-8.2) g/dL Albumin 4.5 (3.5-5.0) g/dL 05/09/19 05/09/19 05/09/19 Range/Units 14:10 14:10 14:10 WBC 42.1 H (3.8-10.6) k/uL RBC 3.31 L (3.80-5.40) m/uL Hgb 11.0 L (11.4-16.0) gm/dL Hct 34.7 (34.0-46.0) % MCV 104.9 H (80.0-100.0) fL MCH 33.1 (25.0-35.0) pg MCHC 31.6 (31.0-37.0) g/dL RDW 13.7 (11.5-15.5) % Plt Count 119 L (150-450) k/uL Neutrophils % (Manual) 26 % Lymphocytes % (Manual) 72 % Monocytes % (Manual) 2 % Neutrophils # (Manual) 10.95 H (1.3-7.7) k/uL Lymphocytes # (Manual) 30.31 H (1.0-4.8) k/uL Monocytes # (Manual) 0.84 (0-1.0) k/uL Nucleated RBCs 0 (0-0) /100 WBC Polychromasia Present Hypochromasia Slight Macrocytosis Slight Stomatocytes Present PT (9.0-12.0) sec INR (<1.2) APTT (22.0-30.0) sec Sodium (137-145) mmol/L Potassium (3.5-5.1) mmol/L Chloride (98-107) mmol/L Carbon Dioxide (22-30) mmol/L Anion Gap mmol/L BUN (7-17) mg/dL Creatinine (0.52-1.04) mg/dL Est GFR (CKD-EPI)AfAm (>60 ml/min/1.73 sqM) Est GFR (CKD-EPI)NonAf (>60 ml/min/1.73 sqM) Glucose (74-99) mg/dL Plasma Lactic Acid Charles (0.7-2.0) mmol/L Calcium (8.4-10.2) mg/dL Magnesium 1.7 (1.6-2.3) mg/dL Total Bilirubin (0.2-1.3) mg/dL AST (14-36) U/L ALT (4-34) U/L Alkaline Phosphatase (38-126) U/L Creatine Kinase 30 (30-135) U/L Troponin I 0.111 H* (0.000-0.034) ng/mL Total Protein (6.3-8.2) g/dL Albumin (3.5-5.0) g/dL - EKG Data -: EKG Interpreted by Me EKG shows normal: sinus rhythm (Sinus rhythm with PACs noted the rate was 96. Interval 176 QRS duration 84 QT since QTC 322/406 unifocal PVC noted. Nonspecific ST-T wave configuration.) - Radiology Data Radiology results: report reviewed (I did review the imaging and report no acute findings.), image reviewed Disposition Clinical Impression: Acute exacerbation of chronic obstructive pulmonary disease, Hypoxemia, Elevated troponin, Renal insufficiency, Leukocytosis, CLL (chronic lymphocytic leukemia) Disposition: ADMITTED IP TO THIS HOSP Condition: Fair Referrals: Radha Dooley MD [Primary Care Provider] - 1-2 days
[2019-05-09 14:56] LABS: HCT 34.7 % (34.0-46.0); Hypochromasia Slight; MCH 33.1 pg (25.0-35.0); MCHC 31.6 g/dL (31.0-37.0); MCV 104.9 fL (80.0-100.0); Macrocytosis Slight; Mean Platelet Volume 7.8; Platelet Count 119 k/uL (150-450); RBC 3.31 m/uL (3.80-5.40); RDW 13.7 % (11.5-15.5); WBC 42.1 k/uL (3.8-10.6)
--- NOTE | 2019-05-09 14:59 | XR ---
EXAMINATION TYPE: XR chest 2V DATE OF EXAM: 05/09/2019 COMPARISON: 10/03/2016 HISTORY: Difficulty breathing TECHNIQUE: Frontal and lateral views of the chest are obtained. FINDINGS: There is an enlarged cardiomediastinal silhouette, progressively enlarged for the prior. A irspace disease at the left costophrenic angle relates to a trace pleural effusion as seen on the lat eral view. There is diffuse osseous demineralization mild degenerative change of the spine. Presumabl y soft tissues overlie the paratracheal stripes. Pulmonary hyperinflation of underlying COPD. IMPRESSION: 1. Trace left pleural effusion and associated left basilar airspace disease. 2. Progressive enlargement of the cardiomediastinal silhouette. 3. Radiographic sequela of COPD. 4. Paratracheal stripes are presumably obscured by overlying soft tissues of the neck.
[2019-05-09 15:15] LABS: Magnesium 1.7 mg/dL (1.6-2.3)
[2019-05-09 15:27] LABS: Lymphocytes # (M) 30.31 k/uL (1.0-4.8); Monocytes # (M) 0.84 k/uL (0-1.0); Neutrophils # (M) 10.95 k/uL (1.3-7.7); Neutrophils % (M) 26 %; Nucleated Red Blood Cells 0 /100 WBC (0-0); Polychromasia Present; Stomatocytes Present; Total Cells Counted 100
[2019-05-09] MEDS ORDERED: BENZONATATE 100 MG CAP PO PRN (16:09)
[2019-05-09] MEDS ORDERED: NITROGLYCERIN SL TABS 0.4 MG TAB SUBLINGUAL PRN (16:09)
[2019-05-09] MEDS ORDERED: IPRATROPIUM-ALBUTEROL 3 ML NEB INHALATION STA (16:14)
[2019-05-09] MEDS ORDERED: CARVEDILOL 12.5 MG TAB PO SCH (17:30)
[2019-05-09] MEDS: SODIUM CHLORIDE 0.9% 1,000 ML IV SCH (18:08)
[2019-05-09 20:00] LABS: Glucose,Whole Blood 370 mg/dL (75-99)
[2019-05-09] MEDS ORDERED: HEPARIN SODIUM,PORCINE 5,000 UNIT/ML 1 ML VIAL IV PRN (20:38)
[2019-05-09] MEDS ORDERED: HEPARIN SODIUM,PORCINE 5,000 UNIT/ML 1 ML VIAL IV ONE (20:38)
[2019-05-09] MEDS ORDERED: ATORVASTATIN 80 MG TAB PO STA (20:42)
[2019-05-09] MEDS ORDERED: INSULIN DETEMIR (LEVEMIR) 100 UNIT/ML SYR SQ ONE (21:00)
[2019-05-09] MEDS: FORMOTEROL FUMARATE 20 MCG/2 ML NEBU INHALATION SCH (21:23)
[2019-05-09] MEDS: IPRATROPIUM-ALBUTEROL 3 ML NEB INHALATION SCH ×2 (21:23→23:40)
[2019-05-09] MEDS: HEPARIN SOD,PORK IN 0.45% NACL 25,000 UNIT in 0.45% NACL 1 250ML.BAG IV SCH (21:33)
[2019-05-09] MEDS: hydrALAZINE HCL 25 MG TAB PO SCH (21:46)
[2019-05-09] MEDS: CLOTRIMAZOLE/BETAMETH 1-0.05% CREAM 45 GM TUBE TOPICAL SCH (21:47)
[2019-05-09] MEDS: INSULIN ASPART (NovoLOG) 100 UNIT/ML VIAL SQ SCH (21:48)
[2019-05-09] MEDS: NITROGLYCERIN OINT 1 INCH/GM PACKET TOPICAL SCH (21:48)
[2019-05-09] MEDS: LORATADINE 10 MG TAB PO PRN (21:57)
[2019-05-09] MEDS: methylPREDNISolone SOD SUCCI 40 MG/ML 1 ML VIAL IV SCH (23:15)
[2019-05-09] MEDS ORDERED: IPRATROPIUM-ALBUTEROL 3 ML NEB INHALATION PRN (23:40)
[2019-05-10] MEDS ORDERED: methylPREDNISolone SOD SUCCI 125 MG/2 ML VIAL IV SCH
[2019-05-10] MEDS: LORazepam 0.5 MG TAB PO PRN ×2 (00:47→23:24)
[2019-05-10 02:08] LABS: Glucose,Whole Blood 380 mg/dL (75-99)
[2019-05-10 04:24] LABS: HCT 31.8 % (34.0-46.0); HGB 9.7 gm/dL (11.4-16.0); Hypochromasia Moderate; MCH 32.5 pg (25.0-35.0); MCHC 30.5 g/dL (31.0-37.0); MCV 106.7 fL (80.0-100.0); Macrocytosis Moderate; Mean Platelet Volume 8.3; Platelet Count 109 k/uL (150-450); RBC 2.98 m/uL (3.80-5.40); RDW 13.8 % (11.5-15.5); WBC 39.9 k/uL (3.8-10.6)
[2019-05-10 06:07] LABS: Lymphocytes # (M) 33.12 k/uL (1.0-4.8); Neutrophils # (M) 6.78 k/uL (1.3-7.7); Neutrophils % (M) 17 %
[2019-05-10 06:08] LABS: Nucleated Red Blood Cells 0 /100 WBC (0-0); Total Cells Counted 100
[2019-05-10 06:09] LABS: Poikilocytosis (M) Present
[2019-05-10] MEDS: CARVEDILOL 6.25 MG TAB PO SCH ×2 (06:41→18:15)
[2019-05-10] MEDS: LEVOTHYROXINE 100 MCG TAB PO SCH (06:41)
[2019-05-10] MEDS: PANTOPRAZOLE 40 MG TABLET PO SCH (06:41)
[2019-05-10] MEDS: INSULIN ASPART (NovoLOG) 100 UNIT/ML VIAL SQ SCH ×4 (06:41→20:53)
[2019-05-10 06:57] LABS: Glucose,Whole Blood 305 mg/dL (75-99)
[2019-05-10] MEDS: FORMOTEROL FUMARATE 20 MCG/2 ML NEBU INHALATION SCH ×2 (07:39→19:15)
[2019-05-10] MEDS: IPRATROPIUM-ALBUTEROL 3 ML NEB INHALATION SCH ×4 (07:39→19:14)
[2019-05-10] MEDS ORDERED: FUROSEMIDE 40 MG TAB PO SCH (09:00)
[2019-05-10] MEDS: ASPIRIN 81 MG PO SCH (09:39)
[2019-05-10] MEDS: methylPREDNISolone SOD SUCCI 40 MG/ML 1 ML VIAL IV SCH ×3 (09:39→23:21)
[2019-05-10] MEDS: LOSARTAN 50 MG TAB PO SCH (09:39)
[2019-05-10] MEDS: amLODIPine 10 MG TAB PO SCH (09:39)
[2019-05-10] MEDS: ATORVASTATIN 80 MG TAB PO SCH (09:39)
[2019-05-10] MEDS: hydrALAZINE HCL 25 MG TAB PO SCH ×2 (09:39→20:53)
--- NOTE | 2019-05-10 09:51 | CONS ---
CONSULTATION Mrs. Martinez is a 79-year-old female who is followed by Dr. Dooley, Dr. Lockwood at [facility]. Dr. Gomez and Dr. Zaragoza who presented with symptoms of progressive dyspnea and hypoxemia. She has a known history of severe chronic obstructive lung disease requiring home oxygen with limited physical activity. She has known history of coronary disease status post percutaneous revascularization done by Dr. Lockwood in 2004 and 2007 with questionable myocardial infarction prior to that. She has mild episode of chest discomfort on and off, but has been stable. She has been seen by Dr. Lockwood 3 months ago and was stable. She has been complaining of the progressive dyspnea and a hypoxemia and came into the emergency room and subsequently admitted. In the emergency room, she was noted to have mild troponin elevation. Her O2 saturation was running in the high 60s. She denies any significant peripheral edema. No PND, no orthopnea. No dizziness, palpitation, or syncope. Her coronary risk factors are remarkable for hypertension, hyperlipidemia and remote history of smoking. MEDICATION: Her medications at home include hydralazine 25 mg twice a day and Norvasc 10 mg daily, losartan 50 mg daily, levothyroxine, furosemide 40 mg daily, Zetia 10 mg daily, Coreg 6.5 mg twice a day, Lipitor 40 mg daily, aspirin once a day. REVIEW OF SYSTEMS: RESPIRATORY SYSTEM: She has chronic obstructive lung disease. No recent fever or wheezing. She has oxygen dependent. GI SYSTEM: No recent GI bleeding. No peptic ulcer disease. SYSTEM: No dysuria or hematuria. NERVOUS SYSTEM: No stroke or seizure. PHYSICAL EXAMINATION: She is a 79-year-old female, alert, oriented, in no apparent distress. Blood pressure 103/55 with a heart rate in the 70s. HEAD: Normocephalic. EYES: Sclerae nonicteric. NECK: Good upstroke, no jugular venous distention. LUNGS: With decreased air exchange bilaterally, no wheezes. HEART: Regular rhythm S1, S2. No S3 with systolic murmur at the base, ejection type, 2/6, no diastolic murmur, no rub. ABDOMEN: Soft. Positive bowel sounds, no organomegaly. EXTREMITIES: No edema, intact pulses. LAB DATA: EKG reveals sinus mechanism, rate of 96, QS in lead III; otherwise nonspecific ST-T wave changes with rare PVCs. Chest x-ray shows no infiltrate with enlargement of mediastinal silhouette. Of note, that patient has history of aneurysm that has been stable. Her lab data revealed a white blood cell of 39.9, hemoglobin of 9.7, BUN and creatinine 55 and 1.24.Troponin of 0.11 and 0.181. Her renal function are worse than her baseline. IMPRESSION: 1. Exacerbation of chronic obstructive pulmonary disease with hypoxemia. 2. Troponin elevation most likely related to a type 2 event related to the hypoxemia. 3. Worsening renal function. 4. History of coronary artery disease, status post stenting done in 2007 most recently. 5. Episode of chest discomfort suggestive of chronic stable angina. 6. History of CLL. 7. Hypertension. 8. Hyperlipidemia. RECOMMENDATION: From the cardiac standpoint, I will stop her diuretic at this time. Follow her renal function. I will obtain echocardiogram with Doppler. I will add isosorbide mononitrate as well as Plavix to her regimen. I will continue on intravenous heparin for 24 hours. Depending on her progress, further recommendation will be made. At this time, I will try to obtain the record from [facility]. At this time, I see no indication for early cardiac catheterization. MMODL / IJN: [id number] /
[2019-05-10] MEDS: FLUTICASONE 50MCG/SPRAY NASAL 16GM EA NOSTRIL SCH (11:18)
[2019-05-10] MEDS: CLOPIDOGREL 75 MG TAB PO SCH (11:31)
[2019-05-10] MEDS: EZETIMIBE 10 MG TAB PO SCH (11:31)
[2019-05-10] MEDS: ISOSORBIDE MONONITRATE ER 30 MG TAB.ER.24H PO SCH (11:31)
[2019-05-10] MEDS: CLOTRIMAZOLE/BETAMETH 1-0.05% CREAM 45 GM TUBE TOPICAL SCH ×2 (11:32→20:57)
[2019-05-10] MEDS ORDERED: HEPARIN SODIUM,PORCINE 5,000 UNIT/ML 1 ML VIAL IV STA ×2 (11:37→19:02)
[2019-05-10 11:44] LABS: Glucose,Whole Blood 212 mg/dL (75-99)
--- NOTE | 2019-05-10 12:00 | ECHOF ---
Referral Reason:cad MEASUREMENTS -------- HEIGHT: 165.1 cm WEIGHT: 90.7 kg BP: 103/55 RVIDd: 3.8 cm (< 3.3) IVSd: 1.6 cm (0.6 - 1.1) LVIDd: 5.0 cm (3.9 - 5.3) LVPWd: 1.6 cm (0.6 - 1.1) IVSs: 2.0 cm LVIDs: 3.4 cm LVPWs: 2.3 cm LAESV Index (A-L): 35.35 ml/m Ao Diam: 3.2 cm (2.0 - 3.7) AV Cusp: 2.0 cm (1.5 - 2.6) MV EXCURSION: 14.378 mm (> 18.000) MV EF SLOPE: 53 mm/s (70 - 150) EPSS: 1.1 cm MV E Sunday: 1.16 m/s MV DecT: 225 ms MV A Sunday: 1.01 m/s MV E/A Ratio: 1.15 RAP: 5.00 mmHg RVSP: 62.83 mmHg FINDINGS -------- Sinus rhythm. This was a technically difficult study with suboptimal apical views. The left ventricular size is normal. There is moderate concentric left ventricular hypertrophy. O verall left ventricular systolic function is normal with, an EF between 55 - 60 %. Increased Lap Gr karine II Diastolic Dysfunction. The right ventricle is mild to moderately enlarged. LA is moderately dilated 34-39 ml/m2 The right atrial size is normal. 5.0mg of Lumason was utilized for enhancement of images Interatrial and interventricular septum intact. The aortic valve is trileaflet and appears structurally normal. There is mild aortic valve sclerosi s. There is no evidence of aortic regurgitation. There is no evidence of aortic stenosis. Moderate mitral annular calcification present. [id number] mitral regurgitation is present. Moderate to severe tricuspid regurgitation present. There is severe pulmonary hypertension. The r ight ventricular systolic pressure, as measured by Doppler, is 62.83mmHg. There is no pulmonic regurgitation present. The aortic root size is normal. Normal inferior vena cava with normal inspiratory collapse consistent with estimated right atrial pre ssure of 5 mmHg. There is no pericardial effusion. CONCLUSIONS -------- 1. Sinus rhythm. 2. This was a technically difficult study with suboptimal apical views. 3. The left ventricular size is normal. 4. There is moderate concentric left ventricular hypertrophy. 5. Overall left ventricular systolic function is normal with, an EF between 55 - 60 %. 6. Increased Lap Grade II Diastolic Dysfunction. 7. The right ventricle is mild to moderately enlarged. 8. LA is moderately dilated 34-39 ml/m2 9. The right atrial size is normal. 10. 5.0mg of Lumason was utilized for enhancement of images 11. Interatrial and interventricular septum intact. 12. The aortic valve is trileaflet and appears structurally normal. 13. There is mild aortic valve sclerosis. 14. There is no evidence of aortic regurgitation. 15. There is no evidence of aortic stenosis. 16. Moderate mitral annular calcification present. 17. [id number] mitral regurgitation is present. 18. Moderate to severe tricuspid regurgitation present. 19. There is severe pulmonary hypertension. 20. The right ventricular systolic pressure, as measured by Doppler, is 62.83mmHg. 21. There is no pulmonic regurgitation present. 22. The aortic root size is normal. 23. Normal inferior vena cava with normal inspiratory collapse consistent with estimated right atrial pressure of 5 mmHg. 24. There is no pericardial effusion. COLON THERAPIST: Shayy Rodriguez RDCS
--- NOTE | 2019-05-10 13:30 | P.CNPUL ---
History of Present Illness Consult date: 05/10/19 Reason for consult: dyspnea History of present illness: This is a 79-year-old female patient with advanced COPD, chronic hypoxic respiratory failure maintained on oxygen between 4 and 5 L per minute, known to have also history of obstructive sleep apnea, secondary pulmonary hypertension, CLL, coronary artery disease and systemic hypertension. The patient is very well-known to me. I have on a combination of Brovana and Pulmicort and she also uses yuperli as COPD maintenance. Around a few weeks back, the patient has noted some worsening shortness of breath and she has developed some hypoxemia. The patient had previously been given probably course of prednisone taper if her condition did not improve and she recently completed a 12 day course of prednisone burst taper. She did improve however symptoms came back and for that reason she end up in the hospital after calling my office. Chest x-ray shows no acute abnormalities. Troponin was slightly elevated and a cardiac consultation was requested. Echocardiogram shows a preserved LV function without any significant cardiomyopathy. No leg edema. No angina. Currently is on IV heparin. Review of Systems Constitutional Constitutional: no fever, no night sweats, no significant weight gain, no significant weight loss, exercise intolerance, lethargy Eyes Eyes: no dry eyes, no irritation, vision change (macular degeneration) ENMT Ears: no difficulty hearing, no ear pain Nose: no frequent nosebleeds, no nose problems, no sinus problems Mouth/Throat: no sore throat, no bleeding gums, no dry mouth, no mouth ulcers, no teeth problems, snoring Cardiovascular Cardiovascular: no chest pain, no arm pain on exertion, no shortness of breath when lying down, no palpitations, no known heart murmur, shortness of breath when walking Respiratory Respiratory: no coughing up blood, no sleep apnea, cough, wheezing, shortness of breath Gastrointestinal Gastrointestinal: no abdominal pain, no nausea, no vomiting, no constipation, normal appetite, no diarrhea, not vomiting blood, no dyspepsia, no GERD Genitourinary Genitourinary: no incontinence, no difficulty urinating, no hematuria, no increased frequency Musculoskeletal Musculoskeletal: no muscle aches, no muscle weakness, no arthralgias/joint pain, no back pain, no swelling in the extremities Integumentary Skin: no abnormal mole, no jaundice, no rashes, no laceration Neurologic Neurologic: no loss of consciousness, no weakness, no numbness, no seizures, no dizziness, no migraines, no headaches, no tremor Psychiatric Psych: no depression, no sleep disturbances, feeling safe in a relationship, no alcohol abuse, no anxiety, no hallucinations, no suicidal thoughts Endocrine Endocrine: no fatigue Hematologic/Lymphatic Hematologic/Lymphatic no swollen glands, no bruising, no excessive bleeding Allergic/Immunologic Allergy/Immunologic: no runny nose, no sinus pressure, no itching, no hives, no frequent sneezing Past Medical History Past Medical History: Cancer, Heart Failure, COPD, Hyperlipidemia, Hypertension, Sleep Apnea/CPAP/BIPAP, Thyroid Disorder Additional Past Medical History / Comment(s): CLL. sleep apnea. macular degeneration. Skin ca History of Any Multi-Drug Resistant Organisms: None Reported Past Surgical History: Heart Catheterization With Stent, Tonsillectomy Additional Past Surgical History / Comment(s): d & c Past Anesthesia/Blood Transfusion Reactions: No Reported Reaction Date of Last Stent Placement:: 2007 Past Psychological History: No Psychological Hx Reported Smoking Status: Former smoker Past Alcohol Use History: Daily Past Drug Use History: None Reported - Past Family History Mother Family Medical History: Congestive Heart Failure (CHF) Father Family Medical History: No Reported History Additional Family Medical History / Comment(s): "Alcohol problems" Chirrosis Medications and Allergies Home Medications Medication Instructions Recorded Confirmed Type Albuterol Inhaler [Ventolin Hfa 2 puff INHALATION RT-QID PRN 10/03/16 05/10/19 History Inhaler] Arformoterol Tartrate [Brovana] 15 mcg INHALATION RT-BID 10/03/16 05/09/19 History Aspirin EC [Ecotrin Low Dose] 81 mg PO DAILY 10/03/16 05/09/19 History Clotrimazole/Betamethasone Dip 1 applic TOPICAL BID PRN 10/03/16 05/09/19 History [Lotrisone Cream] Fluticasone Nasal [place] [Flonase 1 spray EA NOSTRIL DAILY 10/03/16 05/09/19 History Nasal [place]] Furosemide [Lasix] 40 mg PO DAILY 10/03/16 05/09/19 History LORazepam [Ativan] 0.5 mg PO BID PRN 10/03/16 05/09/19 History Levothyroxine Sodium [Synthroid] 100 mcg PO MOTUWETHFRSA 10/03/16 05/09/19 History Loratadine 10 mg PO DAILY PRN 10/03/16 05/09/19 History Losartan Potassium [Cozaar] 50 mg PO DAILY 10/03/16 05/09/19 History Multivitamins, Thera [Multivitamin 1 tab PO DAILY 10/03/16 05/09/19 History (formulary)] Nitroglycerin Sl Tabs [Nitrostat] 0.4 mg SUBLINGUAL Q5M PRN 10/03/16 05/09/19 History Omeprazole [PriLOSEC] 20 mg PO DAILY 10/03/16 05/09/19 History Sennosides [Senna] 8.6 mg PO BID 10/03/16 05/09/19 History Vit C/E/Zn/Coppr/Lutein/Zeaxan 2 cap PO DAILY 10/03/16 05/09/19 History [Preservision Areds 2 Softgel] amLODIPine [Norvasc] 10 mg PO DAILY 10/03/16 05/09/19 History hydrALAZINE HCL 25 mg PO BID 10/03/16 05/09/19 History Atorvastatin [Lipitor] 40 mg PO HS 05/09/19 05/09/19 History Budesonide [Pulmicort] 0.5 mg INHALATION RT-BID 05/09/19 05/09/19 History Carvedilol [Coreg] 6.25 mg PO BID 05/09/19 05/09/19 History Docusate [Colace] 100 mg PO BID 05/09/19 05/09/19 History Ezetimibe [Zetia] 10 mg PO DAILY 05/09/19 05/09/19 History Hydrocortisone Cream 1 applic TOPICAL QID PRN 05/09/19 05/09/19 History [Hydrocortisone 2.5% Cream] Levothyroxine Sodium [Synthroid] 50 mcg PO PADILLA 05/09/19 05/09/19 History Yupelri 175mcg/3ml 175 mcg INHALATION RT-DAILY 05/09/19 05/09/19 History Allergies Allergy/AdvReac Type Severity Reaction Status Date / Time No Known Allergies Allergy Verified 05/09/19 19:30 Physical Exam Vitals: Vital Signs Temp Pulse Pulse Pulse Resp BP BP 05/10/19 12:32 05/10/19 12:00 86 18 05/10/19 11:47 82 05/10/19 11:34 80 05/10/19 08:00 97.9 F 78 18 05/10/19 07:56 84 05/10/19 07:39 88 05/10/19 03:07 97.8 F 79 18 103/55 05/10/19 00:00 98.5 F 85 18 97/52 05/09/19 21:37 86 05/09/19 21:30 89 05/09/19 21:29 86 05/09/19 21:23 89 20 05/09/19 20:00 97.6 F 98 18 135/64 05/09/19 17:35 98.0 F 90 90 16 124/70 05/09/19 16:34 89 05/09/19 16:25 83 05/09/19 15:55 98.2 F 85 20 129/68 05/09/19 14:41 87 20 114/58 05/09/19 14:15 05/09/19 13:46 97.6 F 82 18 118/64 BP Pulse Ox 05/10/19 12:32 90 L 05/10/19 12:00 98/52 84 L 05/10/19 11:47 05/10/19 11:34 05/10/19 08:00 116/58 90 L 05/10/19 07:56 05/10/19 07:39 05/10/19 03:07 89 L 05/10/19 00:00 88 L 05/09/19 21:37 05/09/19 21:30 05/09/19 21:29 05/09/19 21:23 92 L 05/09/19 20:00 89 L 05/09/19 17:35 89 L 05/09/19 16:34 05/09/19 16:25 05/09/19 15:55 86 L 05/09/19 14:41 90 L 05/09/19 14:15 90 L 05/09/19 13:46 86 L Intake and Output 05/09/19 05/10/19 05/10/19 22:59 06:59 14:59 Intake Total 240 601.815 271.619 Output Total 500 Balance 240 101.815 271.619 Intake: Intake, IV Titration 61.815 91.619 Amount Heparin Sod,Pork in 0.45% 61.815 91.619 NaCl 25,000 unit In 0.45 % NaCl 1 250ml.bag @ 11.6 UNITS/KG/HR 9.997 mls/hr IV .Q24H [facility] Rx#: [id number] Oral 240 540 180 Output: Urine 500 Other: Voiding Method Toilet # Voids 1 1 Weight 86.183 kg 91 kg General Appearance no diaphoresis, no respiratory distress, speech not interrupted by breaths, no dyspnea, no pallor, not cachectic, well nourished, appears well, morbid obesity HEENT no pursed lip breathing, no jugular venous distention, no mucous membrane cyanosis, no perioral cyanosis, mallampati classification: class 1, Mallampati Classification: Class 4 Chest no sternocleidomastoid muscle contractions, no supraclavicular retractions, no intercostal retractions, no decreased air movement, no rhonchi, barrel chest, prolonged expiratory wheezing, decreased air movement, hyperinflation Heart no right ventricular heave, no distant heart sounds, no s3 gallop, (normal) jugular vein: jugular venous distention: by 0cm GI bowel sounds: hyperactive (borborygmi), bowel sounds: diminished or absent Extremities no cyanosis, no clubbing, no edema Neurologic no decreased mental status, no somnolence, no confusion Examination of the skin revealed no evidence of significant rashes, suspicious appearing nevi or other concerning lesions. Results - Laboratory Findings CBC and BMP: 05/10/19 02:43 05/10/19 02:43 PT/INR, D-dimer PT 10.1 sec (9.0-12.0) 05/09/19 14:10 INR 1.0 (<1.2) 05/09/19 14:10 Abnormal lab findings: Abnormal Labs 05/09/19 05/09/19 05/09/19 14:10 14:10 14:10 WBC 42.1 H RBC 3.31 L Hgb 11.0 L Hct MCV 104.9 H MCHC Plt Count 119 L Neutrophils # (Manual) 10.95 H Lymphocytes # (Manual) 30.31 H APTT 21.6 L Sodium Chloride 94 L Carbon Dioxide 37 H BUN 43 H Creatinine 1.08 H Glucose 202 H POC Glucose (mg/dL) Troponin I 05/09/19 05/09/19 05/09/19 14:10 19:27 19:59 WBC RBC Hgb Hct MCV MCHC Plt Count Neutrophils # (Manual) Lymphocytes # (Manual) APTT Sodium Chloride Carbon Dioxide BUN Creatinine Glucose POC Glucose (mg/dL) 370 H Troponin I 0.111 H* 0.181 H* 05/10/19 05/10/19 05/10/19 02:06 02:43 02:43 WBC 39.9 H RBC 2.98 L Hgb 9.7 L Hct 31.8 L MCV 106.7 H MCHC 30.5 L Plt Count 109 L Neutrophils # (Manual) Lymphocytes # (Manual) 33.12 H APTT 38.8 H Sodium Chloride Carbon Dioxide BUN Creatinine Glucose POC Glucose (mg/dL) 380 H Troponin I 05/10/19 05/10/19 05/10/19 02:43 06:28 10:24 WBC RBC Hgb Hct MCV MCHC Plt Count Neutrophils # (Manual) Lymphocytes # (Manual) APTT 40.6 H Sodium 135 L Chloride 93 L Carbon Dioxide 34 H BUN 55 H Creatinine 1.24 H Glucose 364 H POC Glucose (mg/dL) 305 H Troponin I 05/10/19 11:43 WBC RBC Hgb Hct MCV MCHC Plt Count Neutrophils # (Manual) Lymphocytes # (Manual) APTT Sodium Chloride Carbon Dioxide BUN Creatinine Glucose POC Glucose (mg/dL) 212 H Troponin I - Diagnostic Findings Chest x-ray: image reviewed Assessment and Plan Plan: #1. acute exacerbation of chronic obstructive airways disease, with acute on chronic hypoxemic respiratory failure #2. Troponin leak, cardiology is following, patient denies any chest pain. Thought to be related to acute on chronic hypoxemic respiratory failure #3. severe chronic obstructive pulmonary disease with chronic hypoxic and h ypercapnic respiratory failure patient wears for a half liters of oxygen on a regular basis, and she is maintained on a combination of Primacor, Perforomist, Yupelri, and albuterol rescue inhaler on an as-needed basis #4. Severe obstructive sleep apnea syndrome with an AHI of 51 and the patient is intolerant to CPAP or BiPAP (supposed to be on 12/6 cm) #5. Secondary pulmonary hypertension with a preserved LV function and ejection fraction of 55%chronic hypoxemic respiratory failure She is on O2 @ 4 liters/min and wean it down as the patient's pulse ox improves. #5. Chronic lymphoid leukemia #6. History of hypogammaglobulinemia and she is on supplements #7. essential hypertension #8. coronary arteriosclerosis #9. 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 #10. Acute kidney injury Plan: Continue current medical treatment, IV steroids, nebulized bronchodilators, Perforomist, will add Pulmicort. No need for antibiotics at this time, hemodynamically patient stable, no complaints of chest pain, no hemoptysis, she is improving, feeling better, she is currently 5 L of oxygen,close to her baseline. we'll continue to follow. Time with Patient: Greater than 30
[2019-05-10] MEDS: LORATADINE 10 MG TAB PO PRN (15:44)
--- NOTE | 2019-05-10 16:08 | P.HPIM ---
History of Present Illness H&P Date: 05/10/19 Chief Complaint: Decreased pulse ox History of presenting complaint: This is a very pleasant 79-year-old patient of Dr. Steph Dooley. Chronic stable medical conditions include congestive heart failure, hyperlipidemia, hypertension, obstructive sleep apnea does not use a CPAP machine, hypothyroid, CLL, macular degeneration, coronary artery disease with stent.-In 2007. Patient does use oxygen at home anyway 4-5 L. Patient presents with pulse ox decreasing. Does feel tired and sleepy. questionable edema. Always has used one pillow. No more short of breath and close to her baseline. No obvious wheezing. Denies any cough or sputum production. No fever no chills. Son is present at the bedside. Review of systems: GEN.: Tired EYES: None HEENT: None NECK: None RESPIRATORY: Baseline shortness of breath CARDIOVASCULAR: None GASTROINTESTINAL: None GENITOURINARY: None MUSCULOSKELETAL: Joint pains LYMPHATICS: None HEMATOLOGICAL: None PSYCHIATRY: None NEUROLOGICAL: None Past medical history to include: COPD, CHF, hyperlipidemia, hypertension, [place] to sleep apnea does not use CPAP, hypothyroid, CLL, macular degeneration, skin cancer, coronary artery disease with stent Social history: Does smoke in the past. No alcohol. Lives by herself at home Physical examination: VITAL SIGNS: 97.6-82-18-11 8/64-86% on 4 L GENERAL: BMI 33.0, sitting upon a chair, somewhat tired. EYES: Pupils equal. Conjunctiva normal. HEENT: External appearance of nose and ears normal, oral cavity grossly normal. NECK: JVD unable to assess; masses not palpable. HEART: First and second heart sounds are normal; some edema present. LUNGS:[ Respiratory rate increased, diminished breath sounds. ABDOMEN: Soft, nontender, liver spleen not palpable, no masses palpable. PSYCH: Alert and oriented x3; mood and affect normal. NEUROLOGICAL: Cranial nerves grossly intact; no facial asymmetry, power and sensation grossly intact. LYMPHATICS: No lymph nodes palpable in the axilla and neck Investigations: White count 42.1 hemoglobin 11 platelets 119 potassium 4.1 bun 43 creatinine 1.08 Troponin I 0.111, 0.181 EKG tracing personally reviewed by me-nonspecific T-wave changes him a PVC Chest x-ray film personally reviewed by me-widened mediastinum pleural effusion, possible infiltrate on the left base Assessment: -This is a patient who weighs 45 L oxygen at home presents with pulse ox down to the 80s. Denies any fever or chills or cough not what short of breath from baseline. Slightly more though. No new wheezing. This could be a COPD exacerbation. Need to rule out underlying pulmonary embolism. -Acute on chronic hypoxic respiratory failure, POA -Troponin leak, clinical picture is not compatible with acute coronary syndrome -COPD in an ex-smoker, exacerbation -Essential hypertension -Hyperlipidemia -Hypothyroid -CLL -Chronic macular degeneration -Coronary artery disease with prior history of stent -Obesity BMI 33.4 Plan: Patient reported bronchodilators and inhaled steroids. The patient is respiratory spirometer. We'll get a VQ scan to rule out PE. If he Joanna will get Doppler ultrasound lower extremity. Other home medications are to continue. Consultation with cardiology and pulmonary is being done. Care was discussed with the patient at length and the son of the bedside. Questions were answered. Patient is on IV heparin per cardiology for 24 hours. Given the bump in renal function and blood pressures running low we will hold off Cozaar for at least 24 hours. Repeat labs in the morning. Past Medical History Past Medical History: Cancer, Heart Failure, COPD, Hyperlipidemia, Hypertension, Sleep Apnea/CPAP/BIPAP, Thyroid Disorder Additional Past Medical History / Comment(s): CLL. sleep apnea. macular degeneration. Skin ca History of Any Multi-Drug Resistant Organisms: None Reported Past Surgical History: Heart Catheterization With Stent, Tonsillectomy Additional Past Surgical History / Comment(s): d & c Past Anesthesia/Blood Transfusion Reactions: No Reported Reaction Date of Last Stent Placement:: 2007 Past Psychological History: No Psychological Hx Reported Smoking Status: Former smoker Past Alcohol Use History: Daily Past Drug Use History: None Reported - Past Family History Mother Family Medical History: Congestive Heart Failure (CHF) Father Family Medical History: No Reported History Additional Family Medical History / Comment(s): "Alcohol problems" Chirrosis Medications and Allergies Home Medications Medication Instructions Recorded Confirmed Type Albuterol Inhaler [Ventolin Hfa 2 puff INHALATION RT-QID PRN 10/03/16 05/10/19 History Inhaler] Arformoterol Tartrate [Brovana] 15 mcg INHALATION RT-BID 10/03/16 05/09/19 History Aspirin EC [Ecotrin Low Dose] 81 mg PO DAILY 10/03/16 05/09/19 History Clotrimazole/Betamethasone Dip 1 applic TOPICAL BID PRN 10/03/16 05/09/19 History [Lotrisone Cream] Fluticasone Nasal [place] [Flonase 1 spray EA NOSTRIL DAILY 10/03/16 05/09/19 History Nasal [place]] Furosemide [Lasix] 40 mg PO DAILY 10/03/16 05/09/19 History LORazepam [Ativan] 0.5 mg PO BID PRN 10/03/16 05/09/19 History Levothyroxine Sodium [Synthroid] 100 mcg PO MOTUWETHFRSA 10/03/16 05/09/19 History Loratadine 10 mg PO DAILY PRN 10/03/16 05/09/19 History Losartan Potassium [Cozaar] 50 mg PO DAILY 10/03/16 05/09/19 History Multivitamins, Thera [Multivitamin 1 tab PO DAILY 10/03/16 05/09/19 History (formulary)] Nitroglycerin Sl Tabs [Nitrostat] 0.4 mg SUBLINGUAL Q5M PRN 10/03/16 05/09/19 History Omeprazole [PriLOSEC] 20 mg PO DAILY 10/03/16 05/09/19 History Sennosides [Senna] 8.6 mg PO BID 10/03/16 05/09/19 History Vit C/E/Zn/Coppr/Lutein/Zeaxan 2 cap PO DAILY 10/03/16 05/09/19 History [Preservision Areds 2 Softgel] amLODIPine [Norvasc] 10 mg PO DAILY 10/03/16 05/09/19 History hydrALAZINE HCL 25 mg PO BID 10/03/16 05/09/19 History Atorvastatin [Lipitor] 40 mg PO HS 05/09/19 05/09/19 History Budesonide [Pulmicort] 0.5 mg INHALATION RT-BID 05/09/19 05/09/19 History Carvedilol [Coreg] 6.25 mg PO BID 05/09/19 05/09/19 History Docusate [Colace] 100 mg PO BID 05/09/19 05/09/19 History Ezetimibe [Zetia] 10 mg PO DAILY 05/09/19 05/09/19 History Hydrocortisone Cream 1 applic TOPICAL QID PRN 05/09/19 05/09/19 History [Hydrocortisone 2.5% Cream] Levothyroxine Sodium [Synthroid] 50 mcg PO PADILLA 05/09/19 05/09/19 History Yupelri 175mcg/3ml 175 mcg INHALATION RT-DAILY 05/09/19 05/09/19 History Allergies Allergy/AdvReac Type Severity Reaction Status Date / Time No Known Allergies Allergy Verified 05/09/19 19:30 Physical Exam Vitals: Vital Signs Temp Pulse Pulse Pulse Resp BP BP 05/10/19 07:56 84 05/10/19 07:39 88 05/10/19 03:07 97.8 F 79 18 103/55 05/10/19 00:00 98.5 F 85 18 97/52 05/09/19 21:37 86 05/09/19 21:30 89 05/09/19 21:29 86 05/09/19 21:23 89 20 05/09/19 20:00 97.6 F 98 18 135/64 05/09/19 17:35 98.0 F 90 90 16 124/70 05/09/19 16:34 89 05/09/19 16:25 83 05/09/19 15:55 98.2 F 85 20 129/68 05/09/19 14:41 87 20 114/58 05/09/19 14:15 05/09/19 13:46 97.6 F 82 18 118/64 Pulse Ox 05/10/19 07:56 05/10/19 07:39 05/10/19 03:07 89 L 05/10/19 00:00 88 L 05/09/19 21:37 05/09/19 21:30 05/09/19 21:29 05/09/19 21:23 92 L 05/09/19 20:00 89 L 05/09/19 17:35 89 L 05/09/19 16:34 05/09/19 16:25 05/09/19 15:55 86 L 05/09/19 14:41 90 L 05/09/19 14:15 90 L 05/09/19 13:46 86 L Intake and Output 05/09/19 05/10/19 05/10/19 22:59 06:59 14:59 Intake Total 240 601.815 Output Total 500 Balance 240 101.815 Intake: Intake, IV Titration 61.815 Amount Heparin Sod,Pork in 0.45% 61.815 NaCl 25,000 unit In 0.45 % NaCl 1 250ml.bag @ 11.6 UNITS/KG/HR 9.997 mls/hr IV .Q24H [facility] Rx#: [id number] Oral 240 540 Output: Urine 500 Other: # Voids 1 1 Weight 86.183 kg 91 kg Results CBC & Chem 7: 05/10/19 02:43 05/10/19 02:43 Labs: Abnormal Lab Results - Last 24 Hours (Table) 05/09/19 05/09/19 05/09/19 Range/Units 14:10 14:10 14:10 WBC 42.1 H (3.8-10.6) k/uL RBC 3.31 L (3.80-5.40) m/uL Hgb 11.0 L (11.4-16.0) gm/dL Hct (34.0-46.0) % MCV 104.9 H (80.0-100.0) fL MCHC (31.0-37.0) g/dL Plt Count 119 L (150-450) k/uL Neutrophils # (Manual) 10.95 H (1.3-7.7) k/uL Lymphocytes # (Manual) 30.31 H (1.0-4.8) k/uL APTT 21.6 L (22.0-30.0) sec Sodium (137-145) mmol/L Chloride 94 L (98-107) mmol/L Carbon Dioxide 37 H (22-30) mmol/L BUN 43 H (7-17) mg/dL Creatinine 1.08 H (0.52-1.04) mg/dL Glucose 202 H (74-99) mg/dL POC Glucose (mg/dL) (75-99) mg/dL Troponin I (0.000-0.034) ng/mL 05/09/19 05/09/19 05/09/19 Range/Units 14:10 19:27 19:59 WBC (3.8-10.6) k/uL RBC (3.80-5.40) m/uL Hgb (11.4-16.0) gm/dL Hct (34.0-46.0) % MCV (80.0-100.0) fL MCHC (31.0-37.0) g/dL Plt Count (150-450) k/uL Neutrophils # (Manual) (1.3-7.7) k/uL Lymphocytes # (Manual) (1.0-4.8) k/uL APTT (22.0-30.0) sec Sodium (137-145) mmol/L Chloride (98-107) mmol/L Carbon Dioxide (22-30) mmol/L BUN (7-17) mg/dL Creatinine (0.52-1.04) mg/dL Glucose (74-99) mg/dL POC Glucose (mg/dL) 370 H (75-99) mg/dL Troponin I 0.111 H* 0.181 H* (0.000-0.034) ng/mL 05/10/19 05/10/19 05/10/19 Range/Units 02:06 02:43 02:43 WBC 39.9 H (3.8-10.6) k/uL RBC 2.98 L (3.80-5.40) m/uL Hgb 9.7 L (11.4-16.0) gm/dL Hct 31.8 L (34.0-46.0) % MCV 106.7 H (80.0-100.0) fL MCHC 30.5 L (31.0-37.0) g/dL Plt Count 109 L (150-450) k/uL Neutrophils # (Manual) (1.3-7.7) k/uL Lymphocytes # (Manual) 33.12 H (1.0-4.8) k/uL APTT 38.8 H (22.0-30.0) sec Sodium (137-145) mmol/L Chloride (98-107) mmol/L Carbon Dioxide (22-30) mmol/L BUN (7-17) mg/dL Creatinine (0.52-1.04) mg/dL Glucose (74-99) mg/dL POC Glucose (mg/dL) 380 H (75-99) mg/dL Troponin I (0.000-0.034) ng/mL 05/10/19 05/10/19 Range/Units 02:43 06:28 WBC (3.8-10.6) k/uL RBC (3.80-5.40) m/uL Hgb (11.4-16.0) gm/dL Hct (34.0-46.0) % MCV (80.0-100.0) fL MCHC (31.0-37.0) g/dL Plt Count (150-450) k/uL Neutrophils # (Manual) (1.3-7.7) k/uL Lymphocytes # (Manual) (1.0-4.8) k/uL APTT (22.0-30.0) sec Sodium 135 L (137-145) mmol/L Chloride 93 L (98-107) mmol/L Carbon Dioxide 34 H (22-30) mmol/L BUN 55 H (7-17) mg/dL Creatinine 1.24 H (0.52-1.04) mg/dL Glucose 364 H (74-99) mg/dL POC Glucose (mg/dL) 305 H (75-99) mg/dL Troponin I (0.000-0.034) ng/mL Thrombosis Risk Factor Assmnt - Choose All That Apply Each Factor Represents 1 point: Abnormal pulmonary function (COPD), Obesity (BMI >25) Each Risk Factor Represents 3 Points: Age 75 years or older Thrombosis Risk Factor Assessment Total Risk Factor Score: 5 Thrombosis Risk Factor Assessment Level: High Risk
[2019-05-10 16:48] LABS: Glucose,Whole Blood 265 mg/dL (75-99)
[2019-05-10] MEDS: SODIUM CHLORIDE 0.9% 1,000 ML IV SCH (17:03)
[2019-05-10 17:12] LABS: Hemoglobin A1C 7.8 % (4.0-6.0)
[2019-05-10] MEDS: NITROGLYCERIN OINT 1 INCH/GM PACKET TOPICAL SCH (19:11)
[2019-05-10] MEDS: BUDESONIDE 1 MG/2 ML NEBU INHALATION SCH (19:14)
[2019-05-10 20:42] LABS: Glucose,Whole Blood 271 mg/dL (75-99)
--- NOTE | 2019-05-10 21:07 | US ---
EXAMINATION TYPE: US venous doppler duplex LE DATE OF EXAM: 05/10/2019 8:14 PM COMPARISON: NONE CLINICAL HISTORY: DVT. COPD exacerbation, elevated troponin; patient denies leg swelling SIDE PERFORMED: Bilateral TECHNIQUE: The lower extremity deep venous system is examined utilizing real time linear array sonog [place] with graded compression, Doppler sonography and color-flow sonography. VESSELS IMAGED: Common Femoral Vein Deep Femoral Vein Greater Saphenous Vein * Femoral Vein Popliteal Vein Small Saphenous Vein * Proximal Calf Veins (* superficial vessels) Right Leg: Negative for acute DVT. Chronic wall changes are noted in right CFV and upper Femoral Vei n at valves, and in mid Femoral Vein, suggestive of non occluding DVT. Left Leg: Negative for acute DVT. Wall changes are also note upper Left Femoral Vein at valves. IMPRESSION: No evidence of acute deep vein thrombosis in both legs.. There is some wall thickening s uggestive of old chronic deep vein thrombosis.
[2019-05-10] MEDS: HEPARIN SOD,PORK IN 0.45% NACL 25,000 UNIT in 0.45% NACL 1 250ML.BAG IV SCH (22:29)
[2019-05-11 06:10] LABS: Glucose,Whole Blood 310 mg/dL (75-99)
[2019-05-11] MEDS: LEVOTHYROXINE 100 MCG TAB PO SCH (06:18)
[2019-05-11] MEDS: PANTOPRAZOLE 40 MG TABLET PO SCH (06:18)
[2019-05-11] MEDS: CARVEDILOL 6.25 MG TAB PO SCH (06:18)
[2019-05-11] MEDS: INSULIN ASPART (NovoLOG) 100 UNIT/ML VIAL SQ SCH ×2 (06:18→13:12)
[2019-05-11 06:56] LABS: HCT 31.8 % (34.0-46.0); Hypochromasia Slight; MCH 33.2 pg (25.0-35.0); MCHC 31.3 g/dL (31.0-37.0); Macrocytosis Moderate; Platelet Count 104 k/uL (150-450); RDW 13.9 % (11.5-15.5); WBC 44.3 k/uL (3.8-10.6)
[2019-05-11 07:06] LABS: Calcium 9.1 mg/dL (8.4-10.2); Potassium 4.4 mmol/L (3.5-5.1)
[2019-05-11 07:17] LABS: Lymphocytes # (M) 36.77 k/uL (1.0-4.8); Monocytes # (M) 0.44 k/uL (0-1.0); Neutrophils # (M) 7.09 k/uL (1.3-7.7); Neutrophils % (M) 16 %; Nucleated Red Blood Cells 0 /100 WBC (0-0); Total Cells Counted 100
[2019-05-11] MEDS: IPRATROPIUM-ALBUTEROL 3 ML NEB INHALATION SCH ×3 (08:56→16:03)
[2019-05-11] MEDS: FORMOTEROL FUMARATE 20 MCG/2 ML NEBU INHALATION SCH (08:56)
[2019-05-11] MEDS: BUDESONIDE 1 MG/2 ML NEBU INHALATION SCH (08:56)
[2019-05-11] MEDS: LOSARTAN 50 MG TAB PO SCH (09:30)
[2019-05-11] MEDS: ASPIRIN 81 MG PO SCH (09:30)
[2019-05-11] MEDS: CLOPIDOGREL 75 MG TAB PO SCH (09:30)
[2019-05-11] MEDS: hydrALAZINE HCL 25 MG TAB PO SCH (09:30)
[2019-05-11] MEDS: ISOSORBIDE MONONITRATE ER 30 MG TAB.ER.24H PO SCH (09:31)
[2019-05-11] MEDS: amLODIPine 10 MG TAB PO SCH (09:31)
[2019-05-11] MEDS: methylPREDNISolone SOD SUCCI 40 MG/ML 1 ML VIAL IV SCH ×2 (09:31→16:23)
[2019-05-11] MEDS: ATORVASTATIN 80 MG TAB PO SCH (09:31)
[2019-05-11 10:55] VITALS: TEMP 97.5
[2019-05-11] MEDS: FLUTICASONE 50MCG/SPRAY NASAL 16GM EA NOSTRIL SCH (11:04)
[2019-05-11 11:55] LABS: Glucose,Whole Blood 296 mg/dL (75-99)
--- NOTE | 2019-05-11 12:51 | P.PN ---
Subjective Progress Note Date: 05/11/19 Today's evaluation of 05/11/2019 the patient is feeling well. She has no specific complaints. She is recovering well from her COPD exacerbation. Doppler of the lower extremity was negative. Echocardiogram was done and there is no evidence of any LV dysfunction. LV is within normal with adequate eject ion fraction. There is a severe pulmonary hypertension which has been there for quite some time and is related to her chronic lung disease and chronic hypoxemia. PA pressures around 62. No major swelling in lower extremities. No angina. No palpitation. No altered mentation. Based on cardiology evaluation, there was no need for any further workup and the patient was being seen by an ultrasound manager express. Objective - Vital Signs Vital signs: Vital Signs Temp 97.5 F L 05/11/19 08:00 Pulse 80 05/11/19 09:31 Resp 18 05/11/19 08:12 BP 126/64 05/11/19 08:12 Pulse Ox 93 L 05/11/19 08:59 Intake & Output 05/10/19 05/11/19 05/11/19 18:59 06:59 18:59 Intake Total 991.619 636.566 100 Output Total 1200 Balance -208.381 636.566 100 Weight 90.9 kg Intake: Intake, IV Titration 91.619 316.566 Amount Heparin Sod,Pork in 0.45% 91.619 96.566 NaCl 25,000 unit In 0.45 % NaCl 1 250ml.bag @ 11.6 UNITS/KG/HR 9.997 mls/hr IV .Q24H JACK Rx#: [id number] Sodium Chloride 0.9% 1, 220 000 ml @ 20 mls/hr IV . Q24H JACK Rx#:[id number] Oral 900 320 100 Output: Urine 1200 Other: Voiding Method Toilet Toilet # Voids 4 2 0 # Bowel Movements 0 - Exam General Appearance no diaphoresis, no respiratory distress, speech not interrupted by breaths, no dyspnea, no pallor, not cachectic, well nourished, appears well, morbid obesity HEENT no pursed lip breathing, no jugular venous distention, no mucous membrane cyanosis, no perioral cyanosis, mallampati classification: class 1, Mallampati Classification: Class 4 Chest no sternocleidomastoid muscle contractions, no supraclavicular retractions, no intercostal retractions, no decreased air movement, no rhonchi, barrel chest, prolonged expiratory wheezing, decreased air movement, hyperinflation Heart no right ventricular heave, no distant heart sounds, no s3 gallop, (normal) jugular vein: jugular venous distention: by 0cm GI bowel sounds: hyperactive (borborygmi), bowel sounds: diminished or absent Extremities no cyanosis, no clubbing, no edema Neurologic no decreased mental status, no somnolence, no confusion Examination of the skin revealed no evidence of significant rashes, suspicious appearing nevi or other concerning lesions. - Labs CBC & Chem 7: 05/11/19 06:37 05/11/19 06:37 Labs: Abnormal Lab Results - Last 24 Hours (Table) 05/10/19 05/10/19 05/10/19 Range/Units 02:53 16:46 17:43 WBC (3.8-10.6) k/uL RBC (3.80-5.40) m/uL Hgb (11.4-16.0) gm/dL Hct (34.0-46.0) % MCV (80.0-100.0) fL Plt Count (150-450) k/uL Lymphocytes # (Manual) (1.0-4.8) k/uL APTT 35.6 H (22.0-30.0) sec Chloride (98-107) mmol/L Carbon Dioxide (22-30) mmol/L BUN (7-17) mg/dL Creatinine (0.52-1.04) mg/dL Glucose (74-99) mg/dL POC Glucose (mg/dL) 265 H (75-99) mg/dL Hemoglobin A1c 7.8 H (4.0-6.0) % 05/10/19 05/11/19 05/11/19 Range/Units 20:40 00:40 06:07 WBC (3.8-10.6) k/uL RBC (3.80-5.40) m/uL Hgb (11.4-16.0) gm/dL Hct (34.0-46.0) % MCV (80.0-100.0) fL Plt Count (150-450) k/uL Lymphocytes # (Manual) (1.0-4.8) k/uL APTT 53.3 H (22.0-30.0) sec Chloride (98-107) mmol/L Carbon Dioxide (22-30) mmol/L BUN (7-17) mg/dL Creatinine (0.52-1.04) mg/dL Glucose (74-99) mg/dL POC Glucose (mg/dL) 271 H 310 H (75-99) mg/dL Hemoglobin A1c (4.0-6.0) % 05/11/19 05/11/19 05/11/19 Range/Units 06:37 06:37 06:37 WBC 44.3 H (3.8-10.6) k/uL RBC 3.00 L (3.80-5.40) m/uL Hgb 10.0 L (11.4-16.0) gm/dL Hct 31.8 L (34.0-46.0) % MCV 106.0 H (80.0-100.0) fL Plt Count 104 L (150-450) k/uL Lymphocytes # (Manual) 36.77 H (1.0-4.8) k/uL APTT 57.9 H (22.0-30.0) sec Chloride 97 L (98-107) mmol/L Carbon Dioxide 32 H (22-30) mmol/L BUN 55 H (7-17) mg/dL Creatinine 1.12 H (0.52-1.04) mg/dL Glucose 294 H (74-99) mg/dL POC Glucose (mg/dL) (75-99) mg/dL Hemoglobin A1c (4.0-6.0) % 05/11/19 Range/Units 11:49 WBC (3.8-10.6) k/uL RBC (3.80-5.40) m/uL Hgb (11.4-16.0) gm/dL Hct (34.0-46.0) % MCV (80.0-100.0) fL Plt Count (150-450) k/uL Lymphocytes # (Manual) (1.0-4.8) k/uL APTT (22.0-30.0) sec Chloride (98-107) mmol/L Carbon Dioxide (22-30) mmol/L BUN (7-17) mg/dL Creatinine (0.52-1.04) mg/dL Glucose (74-99) mg/dL POC Glucose (mg/dL) 296 H (75-99) mg/dL Hemoglobin A1c (4.0-6.0) % Assessment and Plan Plan: #1. acute exacerbation of chronic obstructive airways disease, with acute on chronic hypoxemic respiratory failure #2. Troponin leak, cardiology is following, patient denies any chest pain. Thought to be related to acute on chronic hypoxemic respiratory failure #3. severe chronic obstructive pulmonary disease with chronic hypoxic and hypercapnic respiratory failure patient wears for a half liters of oxygen on a regular basis, and she is maintained on a combination of Primacor, Perforomist, Yupelri, and albuterol rescue inhaler on an as-needed basis #4. Severe obstructive sleep apnea syndrome with an AHI of 51 and the patient is intolerant to CPAP or BiPAP (supposed to be on 12/6 cm) #5. Secondary pulmonary hypertension with a preserved LV function and ejection fraction of 55%chronic hypoxemic respiratory failure She is on O2 @ 4 liters/min and wean it down as the patient's pulse ox improves. #5. Chronic lymphoid leukemia #6. History of hypogammaglobulinemia and she is on supplements #7. essential hypertension #8. coronary arteriosclerosis #9. 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 #10 troponin leak secondary to hypoxemia/COPD Plan: Prednisone burst taper Doppler of the lower extremities negative Echo was noted that the patient has chronic severe pulmonary hypertension Home on maintenance nebulized medications as described earlier including Pulmicort, Perforomist and Yuperli along with albuterol rescue inhaler on an as-needed basis Clear for discharge from the pulmonary and cardiac standpoint
--- NOTE | 2019-05-11 13:12 | P.PN ---
Subjective This is a pleasant 79-year-old female past medical history significant for CLL, hypertension, dyslipidemia and severe physically limiting COPD. She is seen and examined sitting up in the chair in no acute distress. She states overall her breathing is improving. She denies symptoms of chest pain, dizziness or palpitations. Echocardiogram obtained reveals preserved LV systolic function with ejection fraction 55-60%, severe MR, moderate to severe TR and severe pulmonary hypertension with an RVSP of 62 mmHg. Laboratory data reviewed, WBC 44, hemoglobin 10, platelets 104, sodium 137, potassium 4.4, creatinine 1.12. Blood pressure 140/82 with a heart rate of 88 afebrile maintaining oxygen saturation on room air. Currently maintained on amlodipine 10 mg daily, aspirin 81 mg daily, atorvastatin 80 mg daily, carvedilol 6.25 mg t wice a day, Plavix 75 mg daily, that he had 10 mg daily, hydralazine 25 mg twice a day, Imdur 30 mg daily and losartan 50 mg daily. She is also currently maintained on a heparin infusion. GENERAL: Well-appearing, well-nourished and in no acute distress. NECK: Supple without JVD or thyromegaly. LUNGS: Breath sounds clear to auscultation bilaterally. Respiration equal and unlabored. No wheezes, rales or rhonchi. HEART: Regular rate and rhythm with systolic ejection murmur at the base, no rubs or gallops. S1 and S2 heard. EXTREMITIES: Normal range of motion, no edema. No clubbing or cyanosis. Peripheral pulses intact. ASSESSMENT Acute exacerbation of COPD Troponin elevation secondary to type to myocardial injury secondary to supply demand mismatch from hypoxemia Acute on chronic renal failure history of coronary artery disease status post PCI History of CLL Hypertension Dyslipidemia PLAN Discontinue heparin infusion. Continue cardiac medications as previously ordered with the addition of Imdur and Plavix. Stable from a cardiac perspective. Recommend follow-up with her primary groundskeeping yardman upon discharge. We will continue to follow as needed, please feel free to call with further questions or concerns. Nurse Practitioner note has been reviewed, I agree with a documented findings and plan of care. Patient was seen and examined. Objective - Vital Signs Vital signs: Vital Signs Temp 97.5 F L 05/11/19 08:00 Pulse 84 05/11/19 12:53 Resp 18 05/11/19 08:12 BP 126/64 05/11/19 08:12 Pulse Ox 93 L 05/11/19 08:59 Intake & Output 05/10/19 05/11/19 05/11/19 18:59 06:59 18:59 Intake Total 991.619 636.566 280 Output Total 1200 Balance -208.381 636.566 280 Weight 90.9 kg Intake: Intake, IV Titration 91.619 316.566 Amount Heparin Sod,Pork in 0.45% 91.619 96.566 NaCl 25,000 unit In 0.45 % NaCl 1 250ml.bag @ 11.6 UNITS/KG/HR 9.997 mls/hr IV .Q24H JACK Rx#: [id number] Sodium Chloride 0.9% 1, 220 000 ml @ 20 mls/hr IV . Q24H JACK Rx#:[id number] Oral 900 320 280 Output: Urine 1200 Other: Voiding Method Toilet Toilet # Voids 4 2 0 # Bowel Movements 0 - Labs CBC & Chem 7: 05/11/19 06:37 05/11/19 06:37 Labs: Abnormal Lab Results - Last 24 Hours (Table) 05/10/19 05/10/19 05/10/19 Range/Units 02:53 16:46 17:43 WBC (3.8-10.6) k/uL RBC (3.80-5.40) m/uL Hgb (11.4-16.0) gm/dL Hct (34.0-46.0) % MCV (80.0-100.0) fL Plt Count (150-450) k/uL Lymphocytes # (Manual) (1.0-4.8) k/uL APTT 35.6 H (22.0-30.0) sec Chloride (98-107) mmol/L Carbon Dioxide (22-30) mmol/L BUN (7-17) mg/dL Creatinine (0.52-1.04) mg/dL Glucose (74-99) mg/dL POC Glucose (mg/dL) 265 H (75-99) mg/dL Hemoglobin A1c 7.8 H (4.0-6.0) % 05/10/19 05/11/19 05/11/19 Range/Units 20:40 00:40 06:07 WBC (3.8-10.6) k/uL RBC (3.80-5.40) m/uL Hgb (11.4-16.0) gm/dL Hct (34.0-46.0) % MCV (80.0-100.0) fL Plt Count (150-450) k/uL Lymphocytes # (Manual) (1.0-4.8) k/uL APTT 53.3 H (22.0-30.0) sec Chloride (98-107) mmol/L Carbon Dioxide (22-30) mmol/L BUN (7-17) mg/dL Creatinine (0.52-1.04) mg/dL Glucose (74-99) mg/dL POC Glucose (mg/dL) 271 H 310 H (75-99) mg/dL Hemoglobin A1c (4.0-6.0) % 05/11/19 05/11/19 05/11/19 Range/Units 06:37 06:37 06:37 WBC 44.3 H (3.8-10.6) k/uL RBC 3.00 L (3.80-5.40) m/uL Hgb 10.0 L (11.4-16.0) gm/dL Hct 31.8 L (34.0-46.0) % MCV 106.0 H (80.0-100.0) fL Plt Count 104 L (150-450) k/uL Lymphocytes # (Manual) 36.77 H (1.0-4.8) k/uL APTT 57.9 H (22.0-30.0) sec Chloride 97 L (98-107) mmol/L Carbon Dioxide 32 H (22-30) mmol/L BUN 55 H (7-17) mg/dL Creatinine 1.12 H (0.52-1.04) mg/dL Glucose 294 H (74-99) mg/dL POC Glucose (mg/dL) (75-99) mg/dL Hemoglobin A1c (4.0-6.0) % 05/11/19 Range/Units 11:49 WBC (3.8-10.6) k/uL RBC (3.80-5.40) m/uL Hgb (11.4-16.0) gm/dL Hct (34.0-46.0) % MCV (80.0-100.0) fL Plt Count (150-450) k/uL Lymphocytes # (Manual) (1.0-4.8) k/uL APTT (22.0-30.0) sec Chloride (98-107) mmol/L Carbon Dioxide (22-30) mmol/L BUN (7-17) mg/dL Creatinine (0.52-1.04) mg/dL Glucose (74-99) mg/dL POC Glucose (mg/dL) 296 H (75-99) mg/dL Hemoglobin A1c (4.0-6.0) %
[2019-05-11 14:54] VITALS: BP 127/59
[2019-05-11] MEDS ORDERED: POLYETHYLENE GLYCOL 3350 17 GM POWD.PACK PO STA (15:27)
[2019-05-11] MEDS: EZETIMIBE 10 MG TAB PO SCH (15:46)
[2019-05-11] MEDS: CLOTRIMAZOLE/BETAMETH 1-0.05% CREAM 45 GM TUBE TOPICAL SCH (15:46)
[2019-05-11 16:06] VITALS: RESP 16
[2019-05-11 16:14] VITALS: PULSE 80
[2019-05-11 17:07] LABS: Glucose,Whole Blood 298 mg/dL (75-99)
--- NOTE | 2019-05-11 17:50 | P.DS ---
Providers Date of admission: 05/09/19 16:06 Expected date of discharge: 05/11/19 Attending physician: Shekhar Gold Consults: 05/09/19 16:06 Consult Physician Routine Consulting Provider: Marco Padilla Consult Reason/Comments: Elevated troponin Do you want consulting provider notified?: Yes Consult Physician Routine Consulting Provider: Beranrd Zaragoza Consult Reason/Comments: COPD exacerbation, hypoxemia Do you want consulting provider notified?: Already Contacted Primary care physician: Radha Dooley [facility] Course: Chief Complaint: Decreased pulse ox History of presenting complaint: This is a very pleasant 79-year-old patient of Dr. Steph Dooley. Chronic stable medical conditions include congestive heart failure, hyperlipidemia, hyper tension, obstructive sleep apnea does not use a CPAP machine, hypothyroid, CLL, macular degeneration, coronary artery disease with stent.-In 2007. Patient does use oxygen at home anyway 4-5 L. Patient presents with pulse ox decreasing. Does feel tired and sleepy. questionable edema. Always has used one pillow. No more short of breath and close to her baseline. No obvious wheezing. Denies any cough or sputum production. No fever no chills. Admitted with-acute hypoxic respiratory failure, COPD exacerbation. Treated with bronchodilator steroids. Feeling better. Doppler ultrasound of lower extremity was negative for DVT. Today-feeling much improved. Back to baseline. Consultation: Dr. Low from cardiology Dr. Zaragoza from pulmonary Physical examination: VITAL SIGNS: 97.5, 82, 18, 1190 58, 94% on 4 L GENERAL: Sitting up in a chair, comfortable. EYES: Pupils equal. Conjunctiva normal. HEENT: External appearance of nose and ears normal, oral cavity grossly normal. NECK: JVD unable to assess; masses not palpable. HEART: First and second heart sounds are normal; some edema present. LUNGS:[ Respiratory rate increased, diminished breath sounds. ABDOMEN: Soft, nontender, liver spleen not palpable, no masses palpable. PSYCH: Alert and oriented x3; mood and affect normal. Investigations: White count 44.3 hemoglobin 10 potassium 4.4 bun 55 creatinine 1.12 Previous testing White count 42.1 hemoglobin 11 platelets 119 potassium 4.1 bun 43 creatinine 1.08 Troponin I 0.111, 0.181 EKG tracing personally reviewed by me-nonspecific T-wave changes him a PVC Chest x-ray film personally reviewed by me-widened mediastinum pleural effusion, possible infiltrate on the left base Assessment: -Acute on chronic hypoxic respiratory failure, POA -Troponin leak, clinical picture is not compatible with acute coronary syndrome -Acute COPD in an ex-smoker, exacerbation, POA -Essential hypertension -Hyperlipidemia -Hypothyroid -CLL -Chronic macular degeneration -Coronary artery disease with prior history of stent -Obesity BMI 33.4 Disposition: Home Patient Condition at Discharge: Stable Plan - Discharge Summary Discharge Rx Participant: Yes New Discharge Prescriptions: New Isosorbide Mononitrate ER [Imdur] 30 mg PO DAILY #30 tab.er.24h Clopidogrel [Plavix] 75 mg PO DAILY #30 tab predniSONE 10 mg PO DAILY #30 tab Continue Albuterol Inhaler [Ventolin Hfa Inhaler] 2 puff INHALATION RT-QID PRN PRN Reason: Shortness Of Breath amLODIPine [Norvasc] 10 mg PO DAILY Arformoterol Tartrate [Brovana] 15 mcg INHALATION RT-BID Aspirin EC [Ecotrin Low Dose] 81 mg PO DAILY Clotrimazole/Betamethasone Dip [Lotrisone Cream] 1 applic TOPICAL BID PRN PRN Reason: Skin Irritation Fluticasone Nasal Drexel [Flonase Nasal Drexel] 1 spray EA NOSTRIL DAILY hydrALAZINE HCL 25 mg PO BID Levothyroxine Sodium [Synthroid] 100 mcg PO MOTUWETHFRSA Loratadine 10 mg PO DAILY PRN PRN Reason: Allergy Symptoms LORazepam [Ativan] 0.5 mg PO BID PRN PRN Reason: Anxiety Losartan Potassium [Cozaar] 50 mg PO DAILY Multivitamins, Thera [Multivitamin (formulary)] 1 tab PO DAILY Nitroglycerin Sl Tabs [Nitrostat] 0.4 mg SUBLINGUAL Q5M PRN PRN Reason: Chest Pain Omeprazole [PriLOSEC] 20 mg PO DAILY Sennosides [Senna] 8.6 mg PO BID Vit C/E/Zn/Coppr/Lutein/Zeaxan [Preservision Areds 2 Softgel] 2 cap PO DAILY Yupelri 175mcg/3ml 175 mcg INHALATION RT-DAILY Atorvastatin [Lipitor] 40 mg PO HS Budesonide [Pulmicort] 0.5 mg INHALATION RT-BID Carvedilol [Coreg] 6.25 mg PO BID Ezetimibe [Zetia] 10 mg PO DAILY Hydrocortisone Cream [Hydrocortisone 2.5% Cream] 1 applic TOPICAL QID PRN PRN Reason: Rash Levothyroxine Sodium [Synthroid] 50 mcg PO PADILLA Discontinued Docusate [Colace] 100 mg PO BID No Action Furosemide [Lasix] 40 mg PO DAILY Discharge Medication List Albuterol Inhaler [Ventolin Hfa Inhaler] 2 puff INHALATION RT-QID PRN 10/03/16 [History] Arformoterol Tartrate [Brovana] 15 mcg INHALATION RT-BID 10/03/16 [History] Aspirin EC [Ecotrin Low Dose] 81 mg PO DAILY 10/03/16 [History] Clotrimazole/Betamethasone Dip [Lotrisone Cream] 1 applic TOPICAL BID PRN 10/03/16 [History] Fluticasone Nasal Drexel [Flonase Nasal Drexel] 1 spray EA NOSTRIL DAILY 10/03/16 [History] Furosemide [Lasix] 40 mg PO DAILY 10/03/16 [History] LORazepam [Ativan] 0.5 mg PO BID PRN 10/03/16 [History] Levothyroxine Sodium [Synthroid] 100 mcg PO MOTUWETHFRSA 10/03/16 [History] Loratadine 10 mg PO DAILY PRN 10/03/16 [History] Losartan Potassium [Cozaar] 50 mg PO DAILY 10/03/16 [History] Multivitamins, Thera [Multivitamin (formulary)] 1 tab PO DAILY 10/03/16 [History] Nitroglycerin Sl Tabs [Nitrostat] 0.4 mg SUBLINGUAL Q5M PRN 10/03/16 [History] Omeprazole [PriLOSEC] 20 mg PO DAILY 10/03/16 [History] Sennosides [Senna] 8.6 mg PO BID 10/03/16 [History] Vit C/E/Zn/Coppr/Lutein/Zeaxan [Preservision Areds 2 Softgel] 2 cap PO DAILY 10/03/16 [History] amLODIPine [Norvasc] 10 mg PO DAILY 10/03/16 [History] hydrALAZINE HCL 25 mg PO BID 10/03/16 [History] Atorvastatin [Lipitor] 40 mg PO HS 05/09/19 [History] Budesonide [Pulmicort] 0.5 mg INHALATION RT-BID 05/09/19 [History] Carvedilol [Coreg] 6.25 mg PO BID 05/09/19 [History] Ezetimibe [Zetia] 10 mg PO DAILY 05/09/19 [History] Hydrocortisone Cream [Hydrocortisone 2.5% Cream] 1 applic TOPICAL QID PRN 05/09/19 [History] Levothyroxine Sodium [Synthroid] 50 mcg PO PADILLA 05/09/19 [History] Yupelri 175mcg/3ml 175 mcg INHALATION RT-DAILY 05/09/19 [History] Clopidogrel [Plavix] 75 mg PO DAILY #30 tab 05/11/19 [Rx] Isosorbide Mononitrate ER [Imdur] 30 mg PO DAILY #30 tab.er.24h 05/11/19 [Rx] predniSONE 10 mg PO DAILY #30 tab 05/11/19 [Rx] Follow up Appointment(s)/Referral(s): [facility] [NON-STAFF] - Radha Dooley MD [Primary Care Provider] - 1-2 days (Please call to set up follow up appointment ) Bernard Zaragoza MD [STAFF PHYSICIAN] - 2 Weeks (Please call to set up follow up appointment) Patient Instructions/Handouts: COPD (Chronic Obstructive Pulmonary Disease) (DC), COPD (Chronic Obstructive Pulmonary Disease) (GEN)
== END 2019-05-11 18:00 | disposition home health service (06) | DRG 190 ==
LOC: EC 13:42 → 3SCARD 16:06
PROVIDERS: ADMIT Hospitalist; ATTEND Hospitalist
DX: J44.1 Chronic obstructive pulmonary disease with (acute) exacerbation (principal); J96.21 Acute and chronic respiratory failure with hypoxia; I21.A1 Myocardial infarction type 2; C91.10 Chronic lymphocytic leukemia of B-cell type not having achieved remission; I13.0 Hypertensive heart and chronic kidney disease with heart failure and stage 1 through stage 4 chronic kidney disease, or unspecified chronic kidney disease; N17.9 Acute kidney failure, unspecified; I50.32 Chronic diastolic (congestive) heart failure; D80.1 Nonfamilial hypogammaglobulinemia; I27.29 Other secondary pulmonary hypertension; E03.9 Hypothyroidism, unspecified; I25.2 Old myocardial infarction; E66.9 Obesity, unspecified; E78.5 Hyperlipidemia, unspecified; G47.33 Obstructive sleep apnea (adult) (pediatric); H35.30 Unspecified macular degeneration; I25.118 Atherosclerotic heart disease of native coronary artery with other forms of angina pectoris; N18.9 Chronic kidney disease, unspecified; I08.1 Rheumatic disorders of both mitral and tricuspid valves; Z68.33 Body mass index [BMI] 33.0-33.9, adult; Z79.02 Long term (current) use of antithrombotics/antiplatelets; Z79.82 Long term (current) use of aspirin; Z79.890 Hormone replacement therapy; Z79.899 Other long term (current) drug therapy; Z99.81 Dependence on supplemental oxygen; Z95.5 Presence of coronary angioplasty implant and graft; Z87.891 Personal history of nicotine dependence; Z85.9 Personal history of malignant neoplasm, unspecified; Z82.49 Family history of ischemic heart disease and other diseases of the circulatory system; Z81.1 Family history of alcohol abuse and dependence; Z83.79 Family history of other diseases of the digestive system
CPT/HCPCS: 36415; 71046; 80048; 80053; 82550; 83036; 83605; 83735; 84484; 85025; 85610; 85730; 93005; 93306; 93970; 94640; 94760; 96374; 99285

== ENCOUNTER 2019-08-02 17:08 | Inpatient (IN) | payer MEDICARE, BC ==
--- NOTE | 2019-08-02 18:00 | ED ---
General Adult HPI - General Chief complaint: Shortness of Breath Stated complaint: SOB Time Seen by Provider: 08/02/19 17:13 Source: EMS Mode of arrival: EMS Limitations: no limitations - History of Present Illness Initial comments: Dictation was produced using [employer] dictation software. please excuse any grammatical, word or spelling errors. This patient was cared for during a federal and state declared state of emergency secondary to Covid 19 Chief Complaint: 79-year-old female presents with shortness of breath and epigastric pressure. History of Present Illness: 79-year-old female she has multiple comorbidities. She has past medical history of heart failure. Patient was recently hospitalized at [facility]. Patient's chief complaint today is epigastric pressure. She states that she's been having this on and off for the last couple days. She reports she does have a history of heart failure. She reports being admitted at [facility] where she had been worked up. She has a history of heart failure. Allegedly during her recent hospitalization stay she was only told to increase her Lasix. 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 Denies any fever, chills or night sweats. She does feel slightly short of breath. She is complaining of weakness and diarrhea. She denies any diaphoresis. The ROS documented in this emergency department record has been reviewed and confirmed by me. Those systems with pertinent positive or negative responses have been documented in the HPI. All other systems are other negative and/or noncontributory. PHYSICAL EXAM: General Impression: Alert and oriented x3, not in acute distress HEENT: Normocephalic atraumatic, extra-ocular movements intact, pupils equal and reactive to light bilaterally, mucous membranes moist. Cardiovascular: Heart regular rate and rhythm Chest: Able to complete full sentences, no retractions, no tachypnea Abdomen: abdomen soft, non-tender, distended, no fluid wave, no organomegaly Musculoskeletal: Pulses present and equal in all extremities, no peripheral edema Motor: no focal deficits noted Neurological: CN II-XII grossly intact, no focal motor or sensory deficits noted Skin: Intact with no visualized rashes Psych: Normal affect and mood ED course: 79-year-old female presents with epigastric pain. Signs upon arrival shows 91% on 5 L nasal cannula. Patient is oxygen dependent. She wears 4 L of oxygen at home. Laboratory evaluation obtained. Leukocytosis 16.0. This is improved concerning patient has CLL and baseline is more leukocytosis in this. She does have some macrocytosis. Coag panel unremarkable. Metabolic panel is grossly unremarkable. Troponin negative. Urinalysis is negative. Chest x-ray is unremarkable. There appears to be underlying COPD. Patient still is continued to have epigastric tenderness. This point is unclear what is causing patient's pain. There is concern that perhaps patient's symptoms are secondary to acute coronary syndrome. Patient be admitted for surgery troponins and cardiology consultation. Patient is accepted by Dr. Gold. EKG interpretation: Ventricular rate 96, normal sinus rhythm,. Interval 184, QRS 82, QTc 444. No GA prolongation, no QTC prolongation, no ST or T-wave changes noted. EKG compared to 05/09/2019 showing no changes. Overall, this EKG is unremarkable - Related Data Home Medications Medication Instructions Recorded Confirmed Albuterol Inhaler (Mhu) [Ventolin 2 puff INHALATION RT-QID PRN 10/03/16 05/10/19 Hfa Inhaler (Mhu)] Arformoterol Tartrate [Brovana] 15 mcg INHALATION RT-BID 10/03/16 05/09/19 Aspirin EC [Ecotrin Low Dose] 81 mg PO DAILY 10/03/16 05/09/19 Clotrimazole/Betamethasone Dip 1 applic TOPICAL BID PRN 10/03/16 05/09/19 [Lotrisone Cream] Fluticasone Nasal [place] [Flonase 1 spray EA NOSTRIL DAILY 10/03/16 05/09/19 Nasal [place]] Furosemide [Lasix] 40 mg PO DAILY 10/03/16 05/09/19 LORazepam [Ativan] 0.5 mg PO BID PRN 10/03/16 05/09/19 Levothyroxine Sodium [Synthroid] 100 mcg PO MOTUWETHFRSA 10/03/16 05/09/19 Loratadine 10 mg PO DAILY PRN 10/03/16 05/09/19 Losartan Potassium [Cozaar] 50 mg PO DAILY 10/03/16 05/09/19 Multivitamins, Thera [Multivitamin 1 tab PO DAILY 10/03/16 05/09/19 (formulary)] Nitroglycerin Sl Tabs [Nitrostat] 0.4 mg SUBLINGUAL Q5M PRN 10/03/16 05/09/19 Omeprazole [PriLOSEC] 20 mg PO DAILY 10/03/16 05/09/19 Sennosides [Senna] 8.6 mg PO BID 10/03/16 05/09/19 Vit C/E/Zn/Coppr/Lutein/Zeaxan 2 cap PO DAILY 10/03/16 05/09/19 [Preservision Areds 2 Softgel] amLODIPine [Norvasc] 10 mg PO DAILY 10/03/16 05/09/19 hydrALAZINE HCL 25 mg PO BID 10/03/16 05/09/19 Atorvastatin [Lipitor] 40 mg PO HS 05/09/19 05/09/19 Budesonide [Pulmicort] 0.5 mg INHALATION RT-BID 05/09/19 05/09/19 Carvedilol [Coreg] 6.25 mg PO BID 05/09/19 05/09/19 Ezetimibe [Zetia] 10 mg PO DAILY 05/09/19 05/09/19 Hydrocortisone Cream 1 applic TOPICAL QID PRN 05/09/19 05/09/19 [Hydrocortisone 2.5% Cream] Levothyroxine Sodium [Synthroid] 50 mcg PO PADILLA 05/09/19 05/09/19 Yupelri 175mcg/3ml 175 mcg INHALATION RT-DAILY 05/09/19 05/09/19 Previous Rx's Medication Instructions Recorded Clopidogrel [Plavix] 75 mg PO DAILY #30 tab 05/11/19 Isosorbide Mononitrate ER [Imdur] 30 mg PO DAILY #30 tab.er.24h 05/11/19 predniSONE 10 mg PO DAILY #30 tab 05/11/19 Allergies Allergy/AdvReac Type Severity Reaction Status Date / Time No Known Allergies Allergy Verified 05/09/19 19:30 Review of Systems ROS Statement: Those systems with pertinent positive or pertinent negative responses have been documented in the HPI. ROS Other: All systems not noted in ROS Statement are negative. Past Medical History Past Medical History: Cancer, Heart Failure, COPD, Hyperlipidemia, Hypertension, Sleep Apnea/CPAP/BIPAP, Thyroid Disorder Additional Past Medical History / Comment(s): CLL. sleep apnea. macular degeneration. Skin ca History of Any Multi-Drug Resistant Organisms: None Reported Past Surgical History: Heart Catheterization With Stent, Tonsillectomy Additional Past Surgical History / Comment(s): d & c Past Anesthesia/Blood Transfusion Reactions: No Reported Reaction Date of Last Stent Placement:: 2007 Past Psychological History: No Psychological Hx Reported Smoking Status: Former smoker Past Alcohol Use History: Daily Past Drug Use History: None Reported - Past Family History Mother Family Medical History: Congestive Heart Failure (CHF) Father Family Medical History: No Reported History Additional Family Medical History / Comment(s): "Alcohol problems" Chirrosis General Exam Limitations: no limitations Course Vital Signs 08/02/19 08/02/19 08/02/19 17:11 17:14 19:02 Temperature 98.3 F Pulse Rate 96 90 Respiratory 18 21 18 Rate Blood Pressure 112/63 111/68 O2 Sat by Pulse 91 L 94 L Oximetry Medical Decision Making - Lab Data Result diagrams: 08/02/19 17:29 08/02/19 17:29 Lab Results 08/02/19 08/02/19 08/02/19 Range/Units 17:29 17:29 17:29 WBC 16.0 H (3.8-10.6) k/uL RBC 3.38 L (3.80-5.40) m/uL Hgb 11.3 L (11.4-16.0) gm/dL Hct 35.2 (34.0-46.0) % MCV 104.1 H (80.0-100.0) fL MCH 33.5 (25.0-35.0) pg MCHC 32.2 (31.0-37.0) g/dL RDW 14.2 (11.5-15.5) % Plt Count 144 L (150-450) k/uL Neutrophils % 11 % Lymphocytes % 81 % Monocytes % 3 % Eosinophils % 1 % Basophils % 0 % Neutrophils # 1.7 (1.3-7.7) k/uL Lymphocytes # 13.0 H (1.0-4.8) k/uL Monocytes # 0.4 (0-1.0) k/uL Eosinophils # 0.2 (0-0.7) k/uL Basophils # 0.1 (0-0.2) k/uL Hypochromasia Slight Macrocytosis Slight PT 10.6 (9.0-12.0) sec INR 1.0 (<1.2) APTT 23.8 (22.0-30.0) sec Sodium 135 L (137-145) mmol/L Potassium 5.1 (3.5-5.1) mmol/L Chloride 93 L (98-107) mmol/L Carbon Dioxide 38 H (22-30) mmol/L Anion Gap 4 mmol/L BUN 31 H (7-17) mg/dL Creatinine 0.93 (0.52-1.04) mg/dL Est GFR (CKD-EPI)AfAm 68 (>60 ml/min/1.73 sqM) Est GFR (CKD-EPI)NonAf 59 (>60 ml/min/1.73 sqM) Glucose 114 H (74-99) mg/dL Plasma Lactic Acid [place] (0.7-2.0) mmol/L Calcium 9.3 (8.4-10.2) mg/dL Magnesium 1.9 (1.6-2.3) mg/dL Total Bilirubin 0.8 (0.2-1.3) mg/dL AST 23 (14-36) U/L ALT 13 (4-34) U/L Alkaline Phosphatase 91 (38-126) U/L Troponin I (0.000-0.034) ng/mL NT-Pro-B Natriuret Pep pg/mL Total Protein 6.3 (6.3-8.2) g/dL Albumin 4.0 (3.5-5.0) g/dL Lipase 116 (23-300) U/L Urine Color Urine Appearance (Clear) Urine pH (5.0-8.0) Ur Specific [place] (1.001-1.035) Urine Protein (Negative) Urine Glucose (UA) (Negative) Urine Ketones (Negative) Urine Blood (Negative) Urine Nitrite (Negative) Urine Bilirubin (Negative) Urine Urobilinogen (<2.0) mg/dL Ur Leukocyte Esterase (Negative) 08/02/19 08/02/19 08/02/19 Range/Units 17:29 17:29 17:29 WBC (3.8-10.6) k/uL RBC (3.80-5.40) m/uL Hgb (11.4-16.0) gm/dL Hct (34.0-46.0) % MCV (80.0-100.0) fL MCH (25.0-35.0) pg MCHC (31.0-37.0) g/dL RDW (11.5-15.5) % Plt Count (150-450) k/uL Neutrophils % % Lymphocytes % % Monocytes % % Eosinophils % % Basophils % % Neutrophils # (1.3-7.7) k/uL Lymphocytes # (1.0-4.8) k/uL Monocytes # (0-1.0) k/uL Eosinophils # (0-0.7) k/uL Basophils # (0-0.2) k/uL Hypochromasia Macrocytosis PT (9.0-12.0) sec INR (<1.2) APTT (22.0-30.0) sec Sodium (137-145) mmol/L Potassium (3.5-5.1) mmol/L Chloride (98-107) mmol/L Carbon Dioxide (22-30) mmol/L Anion Gap mmol/L BUN (7-17) mg/dL Creatinine (0.52-1.04) mg/dL Est GFR (CKD-EPI)AfAm (>60 ml/min/1.73 sqM) Est GFR (CKD-EPI)NonAf (>60 ml/min/1.73 sqM) Glucose (74-99) mg/dL Plasma Lactic Acid Charles 0.9 (0.7-2.0) mmol/L Calcium (8.4-10.2) mg/dL Magnesium (1.6-2.3) mg/dL Total Bilirubin (0.2-1.3) mg/dL AST (14-36) U/L ALT (4-34) U/L Alkaline Phosphatase (38-126) U/L Troponin I <0.012 (0.000-0.034) ng/mL NT-Pro-B Natriuret Pep pg/mL Total Protein (6.3-8.2) g/dL Albumin (3.5-5.0) g/dL Lipase (23-300) U/L Urine Color Light Yellow Urine Appearance Clear (Clear) Urine pH 6.5 (5.0-8.0) Ur Specific [place] 1.008 (1.001-1.035) Urine Protein Negative (Negative) Urine Glucose (UA) Negative (Negative) Urine Ketones Negative (Negative) Urine Blood Negative (Negative) Urine Nitrite Negative (Negative) Urine Bilirubin Negative (Negative) Urine Urobilinogen <2.0 (<2.0) mg/dL Ur Leukocyte Esterase Negative (Negative) 08/02/19 Range/Units 17:29 WBC (3.8-10.6) k/uL RBC (3.80-5.40) m/uL Hgb (11.4-16.0) gm/dL Hct (34.0-46.0) % MCV (80.0-100.0) fL MCH (25.0-35.0) pg MCHC (31.0-37.0) g/dL RDW (11.5-15.5) % Plt Count (150-450) k/uL Neutrophils % % Lymphocytes % % Monocytes % % Eosinophils % % Basophils % % Neutrophils # (1.3-7.7) k/uL Lymphocytes # (1.0-4.8) k/uL Monocytes # (0-1.0) k/uL Eosinophils # (0-0.7) k/uL Basophils # (0-0.2) k/uL Hypochromasia Macrocytosis PT (9.0-12.0) sec INR (<1.2) APTT (22.0-30.0) sec Sodium (137-145) mmol/L Potassium (3.5-5.1) mmol/L Chloride (98-107) mmol/L Carbon Dioxide (22-30) mmol/L Anion Gap mmol/L BUN (7-17) mg/dL Creatinine (0.52-1.04) mg/dL Est GFR (CKD-EPI)AfAm (>60 ml/min/1.73 sqM) Est GFR (CKD-EPI)NonAf (>60 ml/min/1.73 sqM) Glucose (74-99) mg/dL Plasma Lactic Acid Charles (0.7-2.0) mmol/L Calcium (8.4-10.2) mg/dL Magnesium (1.6-2.3) mg/dL Total Bilirubin (0.2-1.3) mg/dL AST (14-36) U/L ALT (4-34) U/L Alkaline Phosphatase (38-126) U/L Troponin I (0.000-0.034) ng/mL NT-Pro-B Natriuret Pep 1590 pg/mL Total Protein (6.3-8.2) g/dL Albumin (3.5-5.0) g/dL Lipase (23-300) U/L Urine Color Urine Appearance (Clear) Urine pH (5.0-8.0) Ur Specific [place] (1.001-1.035) Urine Protein (Negative) Urine Glucose (UA) (Negative) Urine Ketones (Negative) Urine Blood (Negative) Urine Nitrite (Negative) Urine Bilirubin (Negative) Urine Urobilinogen (<2.0) mg/dL Ur Leukocyte Esterase (Negative) Disposition Clinical Impression: Epigastric pain Disposition: ADMITTED IP TO THIS HOSP Condition: Fair Referrals: Radha Dooley MD [Primary Care Provider] - 1-2 days Decision Time: 19:29
[2019-08-02 18:13] LABS: Appearance,Urine Clear (Clear); Bilirubin,Urine Negative (Negative); Blood,Urine Negative (Negative); Color,Urine Light Yellow; Glucose,Urine (UA) Negative (Negative); Ketones,Urine Negative (Negative); Leukocyte Esterase,Urine Negative (Negative); Nitrite,Urine Negative (Negative); PH, Urine 6.5 (5.0-8.0); Protein,Urine Negative (Negative); Specific Gravity,Urine 1.008 (1.001-1.035); Urobilinogen,Urine <2.0 mg/dL (<2.0)
[2019-08-02 18:22] LABS: Partial Thromboplastin Time 23.8 sec (22.0-30.0); Prothrombin Time 10.6 sec (9.0-12.0)
[2019-08-02 18:23] LABS: Calcium 9.3 mg/dL (8.4-10.2); Magnesium 1.9 mg/dL (1.6-2.3); Potassium 5.1 mmol/L (3.5-5.1); Total Bilirubin 0.8 mg/dL (0.2-1.3); Total Protein 6.3 g/dL (6.3-8.2)
--- NOTE | 2019-08-02 18:24 | XR ---
EXAMINATION TYPE: XR chest 2V DATE OF EXAM: 08/02/2019 COMPARISON: 05/09/2019 HISTORY: Chest heaviness for 2 weeks with shortness of breath for 3 days TECHNIQUE: Frontal and lateral views of the chest are obtained. FINDINGS: Thoracic rib cage deformities are chronic. Bibasilar opacities also appear chronic possibl y related to overlying soft tissue and/or rib cage deformities. Levoscoliosis of the thoracic spine a nd diffuse osseous demineralization are seen. Enlarged cardiomediastinal silhouette. Biapical lucency suggestive of underlying COPD. Mild degenerative change of the spine. Chronic trace left pleural eff usion. No new focal consolidation. IMPRESSION: Chronic changes with no acute process. Underlying COPD.
[2019-08-02 18:27] LABS: Basophils # (A) 0.1 k/uL (0-0.2); Basophils % (A) 0 %; Eosinophils # (A) 0.2 k/uL (0-0.7); Eosinophils % (A) 1 %; HCT 35.2 % (34.0-46.0); HGB 11.3 gm/dL (11.4-16.0); Hypochromasia Slight; MCH 33.5 pg (25.0-35.0); MCHC 32.2 g/dL (31.0-37.0); MCV 104.1 fL (80.0-100.0); Macrocytosis Slight; Mean Platelet Volume 7.6; Monocytes # (A) 0.4 k/uL (0-1.0); Monocytes % (A) 3 %; Neutrophils # (A) 1.7 k/uL (1.3-7.7); Neutrophils % (A) 11 %; Platelet Count 144 k/uL (150-450); RBC 3.38 m/uL (3.80-5.40); RDW 14.2 % (11.5-15.5)
[2019-08-02 18:28] LABS: Lymphocytes % (A) 81 %
[2019-08-02] MEDS ORDERED: ASPIRIN 81 MG PO STA (19:30)
[2019-08-02] MEDS: LEVOTHYROXINE 100 MCG TAB PO SCH (23:13)
[2019-08-02] MEDS: hydrALAZINE HCL 25 MG TAB PO SCH (23:16)
[2019-08-02] MEDS: ATORVASTATIN 40 MG TAB PO SCH (23:24)
[2019-08-02] MEDS: LORazepam 0.5 MG TAB PO PRN (23:24)
[2019-08-02] MEDS: CARVEDILOL 6.25 MG TAB PO SCH (23:24)
[2019-08-02] MEDS ORDERED: HYDROCORTISONE 1% CREAM 30 GM TUBE TOPICAL PRN (23:30)
[2019-08-02] MEDS ORDERED: CLOTRIMAZOLE/BETAMETH 1-0.05% CREAM 45 GM TUBE TOPICAL PRN (23:30)
[2019-08-02] MEDS ORDERED: NITROGLYCERIN SL TABS 0.4 MG TAB SUBLINGUAL PRN (23:30)
[2019-08-03] MEDS: LEVOTHYROXINE 100 MCG TAB PO SCH (06:09)
[2019-08-03 07:24] LABS: Cholesterol 147 mg/dL (<200); HDL Cholesterol 39 mg/dL (40-60); LDL Cholesterol,Calculated 65 mg/dL (0-99); Triglycerides 214 mg/dL (<150)
[2019-08-03] MEDS: ALBUTEROL NEBULIZED 2.5 MG/3 ML INHALATION PRN ×4 (07:40→19:53)
[2019-08-03] MEDS: BUDESONIDE 0.5 MG/2 ML NEBU INHALATION SCH ×2 (07:40→19:53)
[2019-08-03] MEDS: FORMOTEROL FUMARATE 20 MCG/2 ML NEBU INHALATION SCH ×2 (07:40→19:53)
--- NOTE | 2019-08-03 07:55 | P.CRDCN ---
History of Present Illness Consult date: 08/03/19 Chief complaint: Chest discomfort History of present illness: This is a very pleasant 79-year-old female patient with a past medical history significant for coronary artery disease, the patient does follow with a roller gold leaf at [facility], chronic obstructive pulmonary disease, hypertension, and dyslipidemia, presented to the hospital complaining of chest discomfort. She states that for the last several weeks she has been ex periencing intermittent episodes of chest discomfort, in the mid of the chest, as a pressure/squeezing, with no radiation to the arms or neck or shoulders, and no associated symptoms of shortness of breath, sweating, dizziness, or syncope. She does have chronic shortness of breath with exertion related to COPD. She was admitted recently to the hospital with COPD exacerbation and mildly abnormal troponin. We consulted to see her at that point we advised maximize medical treatment. She stated that she did have a follow-up with her primary roller gold leaf recently who increased her oral diuretics. Currently the patient is chest pain-free. EKG showed sinus rhythm was nonspecific changes. The cardiac enzymes were checked and came in to be unremarkable. During her recent admission an echocardiogram was performed and revealed normal LV function was mild to moderate MR, moderate to severe TR, and severe pulmonary hypertension. I had a long discussion with the patient today regarding the next step and I advised the patient to stay overnight and watch her regarding the chest discomfort. I also advised the patient to get up and around to see if she is symptomatic. I advised the patient to undergo coronary angiogram because this is her second admission with a chest discomfort. She refused and she stated that she would like to go home and see her primary roller gold leaf. I am going to get the patient up and around and if she is asymptomatic she possibly can be discharged home Past Medical History Past Medical History: Cancer, Heart Failure, COPD, Hyperlipidemia, Hypertension, Sleep Apnea/CPAP/BIPAP, Thyroid Disorder Additional Past Medical History / Comment(s): CLL. sleep apnea. macular degeneration. Skin ca History of Any Multi-Drug Resistant Organisms: None Reported Past Surgical History: Heart Catheterization With Stent, Tonsillectomy Additional Past Surgical History / Comment(s): d & c Past Anesthesia/Blood Transfusion Reactions: No Reported Reaction Date of Last Stent Placement:: 2007 Past Psychological History: No Psychological Hx Reported Smoking Status: Former smoker Past Alcohol Use History: Daily Past Drug Use History: None Reported - Past Family History Mother Family Medical History: Congestive Heart Failure (CHF) Father Family Medical History: No Reported History Additional Family Medical History / Comment(s): "Alcohol problems" Chirrosis Medications and Allergies Home Medications Medication Instructions Recorded Confirmed Type Albuterol Inhaler (Mhu) [Ventolin 2 puff INHALATION RT-QID PRN 10/03/16 05/10/19 History Hfa Inhaler (Mhu)] Arformoterol Tartrate [Brovana] 15 mcg INHALATION RT-BID 10/03/16 05/09/19 History Aspirin EC [Ecotrin Low Dose] 81 mg PO DAILY 10/03/16 05/09/19 History Clotrimazole/Betamethasone Dip 1 applic TOPICAL BID PRN 10/03/16 05/09/19 History [Lotrisone Cream] Fluticasone Nasal [place] [Flonase 1 spray EA NOSTRIL DAILY 10/03/16 05/09/19 History Nasal [place]] Furosemide [Lasix] 40 mg PO DAILY 10/03/16 05/09/19 History LORazepam [Ativan] 0.5 mg PO BID PRN 10/03/16 05/09/19 History Levothyroxine Sodium [Synthroid] 100 mcg PO MOTUWETHFRSA 10/03/16 05/09/19 History Loratadine 10 mg PO DAILY PRN 10/03/16 05/09/19 History Losartan Potassium [Cozaar] 50 mg PO DAILY 10/03/16 05/09/19 History Multivitamins, Thera [Multivitamin 1 tab PO DAILY 10/03/16 05/09/19 History (formulary)] Nitroglycerin Sl Tabs [Nitrostat] 0.4 mg SUBLINGUAL Q5M PRN 10/03/16 05/09/19 History Omeprazole [PriLOSEC] 20 mg PO DAILY 10/03/16 05/09/19 History Sennosides [Senna] 8.6 mg PO BID 10/03/16 05/09/19 History Vit C/E/Zn/Coppr/Lutein/Zeaxan 2 cap PO DAILY 10/03/16 05/09/19 History [Preservision Areds 2 Softgel] amLODIPine [Norvasc] 10 mg PO DAILY 10/03/16 05/09/19 History hydrALAZINE HCL 25 mg PO BID 10/03/16 05/09/19 History Atorvastatin [Lipitor] 40 mg PO HS 05/09/19 05/09/19 History Budesonide [Pulmicort] 0.5 mg INHALATION RT-BID 05/09/19 05/09/19 History Carvedilol [Coreg] 6.25 mg PO BID 05/09/19 05/09/19 History Ezetimibe [Zetia] 10 mg PO DAILY 05/09/19 05/09/19 History Hydrocortisone Cream 1 applic TOPICAL QID PRN 05/09/19 05/09/19 History [Hydrocortisone 2.5% Cream] Levothyroxine Sodium [Synthroid] 50 mcg PO PADILLA 05/09/19 05/09/19 History Yupelri 175mcg/3ml 175 mcg INHALATION RT-DAILY 05/09/19 05/09/19 History Clopidogrel [Plavix] 75 mg PO DAILY #30 tab 05/11/19 Rx Isosorbide Mononitrate ER [Imdur] 30 mg PO DAILY #30 tab.er.24h 05/11/19 Rx predniSONE 10 mg PO DAILY #30 tab 05/11/19 Rx Allergies Allergy/AdvReac Type Severity Reaction Status Date / Time No Known Allergies Allergy Verified 08/02/19 22:24 Physical Exam Vitals: Vital Signs Temp Pulse Pulse Resp BP BP Pulse Ox 08/03/19 07:32 97.6 F 84 16 101/58 95 08/03/19 04:00 98.3 F 86 18 100/65 94 L 08/02/19 22:46 18 08/02/19 22:00 97.0 F L 98 18 127/66 91 L 08/02/19 19:02 90 18 111/68 94 L 08/02/19 17:14 21 08/02/19 17:11 98.3 F 96 18 112/63 91 L Intake and Output 08/02/19 08/03/19 08/03/19 22:59 06:59 14:59 Other: Voiding Method Toilet Toilet Toilet # Voids 2 Weight 87.997 kg - Constitutional General appearance: no acute distress - Respiratory Respiratory: bilateral: CTA - Cardiovascular Rhythm: regular Heart sounds: normal: S1, S2 Abnormal Heart Sounds: systolic murmur Results 08/02/19 17:29 08/02/19 17:29 Cardiac Enzymes 08/02/19 08/02/19 08/02/19 Range/Units 17:29 17:29 23:36 AST 23 (14-36) U/L Troponin I <0.012 <0.012 (0.000-0.034) ng/mL 08/03/19 Range/Units 06:24 AST (14-36) U/L Troponin I 0.013 (0.000-0.034) ng/mL Coagulation 08/02/19 Range/Units 17:29 PT 10.6 (9.0-12.0) sec APTT 23.8 (22.0-30.0) sec Lipids 08/03/19 Range/Units 06:24 Triglycerides 214 H (<150) mg/dL Cholesterol 147 (<200) mg/dL HDL Cholesterol 39 L (40-60) mg/dL CBC 08/02/19 Range/Units 17:29 WBC 16.0 H (3.8-10.6) k/uL RBC 3.38 L (3.80-5.40) m/uL Hgb 11.3 L (11.4-16.0) gm/dL Hct 35.2 (34.0-46.0) % Plt Count 144 L (150-450) k/uL Comprehensive Metabolic Panel 08/02/19 Range/Units 17:29 Sodium 135 L (137-145) mmol/L Potassium 5.1 (3.5-5.1) mmol/L Chloride 93 L (98-107) mmol/L Carbon Dioxide 38 H (22-30) mmol/L BUN 31 H (7-17) mg/dL Creatinine 0.93 (0.52-1.04) mg/dL Glucose 114 H (74-99) mg/dL Calcium 9.3 (8.4-10.2) mg/dL AST 23 (14-36) U/L ALT 13 (4-34) U/L Alkaline Phosphatase 91 (38-126) U/L Total Protein 6.3 (6.3-8.2) g/dL Albumin 4.0 (3.5-5.0) g/dL Current Medications Generic Name Dose Route Start Last Admin Trade Name Freq PRN Reason Stop Dose Admin Albuterol Sulfate 2.5 mg 08/02/19 22:53 08/03/19 07:40 Ventolin Nebulized INHALATION 2.5 mg RT-QID PRN Administration Shortness Of Breath Amlodipine Besylate 10 mg 08/03/19 09:00 Norvasc PO DAILY [facility] Aspirin 325 mg 08/03/19 09:00 Aspirin PO DAILY [facility] Atorvastatin Calcium 40 mg 08/02/19 23:00 08/02/19 23:24 Lipitor PO 40 mg HS [facility] Administration Betamethasone/Clotrimazole 1 applic 08/02/19 23:30 Lotrisone TOPICAL BID PRN Skin Irritation Budesonide 0.5 mg 08/03/19 08:00 08/03/19 07:40 Pulmicort INHALATION 0.5 mg RT-BID [facility] Administration Carvedilol 6.25 mg 08/02/19 23:00 08/02/19 23:24 Coreg PO 6.25 mg BID [facility] Administration Ezetimibe 10 mg 08/03/19 09:00 Zetia PO DAILY [facility] Formoterol Fumarate 20 mcg 08/03/19 08:00 08/03/19 07:40 Perforomist INHALATION 20 mcg RT-BID [facility] Administration Furosemide 40 mg 08/03/19 09:00 Lasix PO DAILY [facility] Hydralazine HCl 25 mg 08/02/19 23:30 08/02/19 23:16 Apresoline PO Not Given BID [facility] Hydrocortisone 1 applic 08/02/19 23:30 Hydrocortisone 1% Cream TOPICAL QID PRN Rash Isosorbide Mononitrate 30 mg 08/03/19 09:00 Imdur PO DAILY [facility] Levothyroxine Sodium 50 mcg 08/04/19 06:30 Synthroid PO PADILLA [facility] Levothyroxine Sodium 100 mcg 08/02/19 06:30 08/03/19 06:09 Synthroid PO 100 mcg MOTUWETHFRSA [facility] Administration Lorazepam 0.5 mg 08/02/19 23:30 08/02/19 23:24 Ativan PO 0.5 mg BID PRN Administration Anxiety Losartan Potassium 50 mg 08/03/19 09:00 Cozaar PO DAILY [facility] Multivitamins 1 each 08/03/19 09:00 Theragran PO DAILY [facility] Nitroglycerin 0.4 mg 08/02/19 23:30 Nitrostat SUBLINGUAL Q5M PRN Chest Pain Pantoprazole Sodium 40 mg 08/03/19 09:00 Protonix PO DAILY JACK Prednisone 10 mg 08/03/19 09:00 PO DAILY JACK Intake and Output 08/02/19 08/03/19 08/03/19 22:59 06:59 14:59 Other: Voiding Method Toilet Toilet Toilet # Voids 2 Weight 87.997 kg 08/02/19 17:29 08/02/19 17:29 Assessment and Plan Assessment: Assessment Intermittent episodes of chest discomfort History of coronary artery disease Chronic obstructive pulmonary disease Multiple comorbid conditions Plan Continue current medical regimen Acute coronary syndrome was ruled out The patient would like to go home Follow up with her primary roller gold leaf
[2019-08-03] MEDS: hydrALAZINE HCL 25 MG TAB PO SCH ×2 (08:45→20:28)
[2019-08-03] MEDS: CARVEDILOL 6.25 MG TAB PO SCH ×2 (08:46→20:28)
[2019-08-03] MEDS: ISOSORBIDE MONONITRATE ER 30 MG TAB.ER.24H PO SCH (08:46)
[2019-08-03] MEDS: LOSARTAN 50 MG TAB PO SCH (08:46)
[2019-08-03] MEDS: amLODIPine 10 MG TAB PO SCH (08:46)
[2019-08-03] MEDS: PANTOPRAZOLE 40 MG TABLET PO SCH (08:46)
[2019-08-03] MEDS: MULTIVITAMINS, THERA 1 EACH TAB PO SCH (08:46)
[2019-08-03] MEDS: EZETIMIBE 10 MG TAB PO SCH (08:55)
[2019-08-03] MEDS ORDERED: FUROSEMIDE 40 MG TAB PO SCH (09:00)
[2019-08-03] MEDS ORDERED: ASPIRIN 325 MG TAB PO SCH (09:00)
[2019-08-03] MEDS ORDERED: predniSONE 10 MG TAB PO SCH (09:00)
[2019-08-03] MEDS: FUROSEMIDE 10 MG/ML 4 ML VIAL IV SCH ×2 (12:55→20:28)
--- NOTE | 2019-08-03 19:51 | P.HPIM ---
History of Present Illness H&P Date: 08/03/19 Chief Complaint: Shortness of breath History of presenting complaint: This is a very pleasant 79-year-old patient of Dr. Steph Dooley. Chronic stable medical conditions include hyperlipidemia, hypertension, obstructive sleep apnea does not use a CPAP machine, hypothyroid, CLL, macular degeneration, coronary artery disease with stent.-In 2007. Patient does use oxygen at home anyway 4-5 L. patient presents with not feeling well for about 2 weeks. Has noted increasing edema. Decreased appetite is slowly picking up. Patient had a baseline short of breath. Has noticed to be more short of breath. Also been having chest heaviness off and on for 2 weeks. This feels somewhat weak. Patient always sits up and sleeps in a chair. Denies any fever and chills. No cough.. Review of systems: GEN.: Tired EYES: None HEENT: None NECK: None RESPIRATORY: Baseline shortness of breath CARDIOVASCULAR: As above with edema GASTROINTESTINAL: Had some diarrhea but that is improved GENITOURINARY: None MUSCULOSKELETAL: Joint pains LYMPHATICS: None HEMATOLOGICAL: None PSYCHIATRY: None NEUROLOGICAL: None Past medical history to include: COPD, CHF, hyperlipidemia, hypertension, obstructive sleep apnea does not use CPAP, hypothyroid, CLL, macular degeneration, skin cancer, coronary artery disease with stent, home oxygen 4 L Social history: Does smoke in the past. No alcohol. Lives alone Physical examination: VITAL SIGNS: 98.3, 96, 18, 112/63, 91% on 5 L GENERAL: BMI 33.3, sitting up in a chair, short of breath EYES: Pupils equal. Conjunctiva normal. HEENT: External appearance of nose and ears normal, oral cavity grossly normal. NECK: JVD possibly raised; masses not palpable. HEART: First and second heart sounds are normal; edema present LUNGS:[ Respiratory rate increased, bilateral basal crackles. ABDOMEN: Soft, nontender, liver spleen not palpable, no masses palpable. PSYCH: Alert and oriented x3; mood and affect normal. NEUROLOGICAL: Cranial nerves grossly intact; no facial asymmetry, power and sensation grossly intact. LYMPHATICS: No lymph nodes palpable in the axilla and neck Investigations: White count 16 hemoglobin 11.3 platelets 144 potassium 5.1 bun 31 creatinine 0.93 Troponin I 3 negative LDL 65 proBNP 1590 EKG tracing personally reviewed by me-normal sinus rhythm some ST segment changes with poor baseline Chest x-ray film personally reviewed by me-showing some chronic changes and possible fluid in the fissure 2-D echocardiogram from May 2019 shows moderate concentric LVH and EF of 55- 60%, moderate to severe tricuspid regurgitation, severe pulmonary hypertension Assessment: -Acute congestive heart failure exacerbation from diastolic dysfunction EF 55- 60% from underlying coronary artery disease, POA -Acute on chronic hypoxic respiratory failure, POA -Moderate to severe tricuspid regurgitation, nontraumatic -Secondary severe pulmonary hypertension - Acute COPD in an ex-smoker, exacerbation, POA -Essential hypertension -Hyperlipidemia -Hypothyroid -CLL -Chronic macular degeneration -Coronary artery disease with prior history of stent -Obesity BMI 33.4 Plan: We'll start the patient on IV Lasix 40 mg every 8 for a total of 3 doses. Add nebulized bronchodilators. Home medications resumed.. Cardiology was c onsulted. Lovenox for DVT prophylaxis. Care was discussed with the patient. Questions were answered. Past Medical History Past Medical History: Cancer, Heart Failure, COPD, Hyperlipidemia, Hypertension, Sleep Apnea/CPAP/BIPAP, Thyroid Disorder Additional Past Medical History / Comment(s): CLL. sleep apnea. macular degeneration. Skin ca History of Any Multi-Drug Resistant Organisms: None Reported Past Surgical History: Heart Catheterization With Stent, Tonsillectomy Additional Past Surgical History / Comment(s): d & c Past Anesthesia/Blood Transfusion Reactions: No Reported Reaction Date of Last Stent Placement:: 2007 Past Psychological History: No Psychological Hx Reported Smoking Status: Former smoker Past Alcohol Use History: Daily Past Drug Use History: None Reported - Past Family History Mother Family Medical History: Congestive Heart Failure (CHF) Father Family Medical History: No Reported History Additional Family Medical History / Comment(s): "Alcohol problems" Chirrosis Medications and Allergies Home Medications Medication Instructions Recorded Confirmed Type Albuterol Inhaler (Mhu) [Ventolin 2 puff INHALATION RT-QID PRN 10/03/16 08/03/19 History Hfa Inhaler (Mhu)] Arformoterol Tartrate [Brovana] 15 mcg INHALATION RT-BID 10/03/16 08/03/19 History Aspirin EC [Ecotrin Low Dose] 81 mg PO DAILY 10/03/16 08/03/19 History Clotrimazole/Betamethasone Dip 1 applic TOPICAL BID PRN 10/03/16 08/03/19 History [Lotrisone Cream] Fluticasone Nasal [place] [Flonase 1 spray EA NOSTRIL DAILY 10/03/16 08/03/19 History Nasal [place]] Furosemide [Lasix] 40 mg PO BID 10/03/16 08/03/19 History LORazepam [Ativan] 0.5 mg PO BID PRN 10/03/16 08/03/19 History Levothyroxine Sodium [Synthroid] 100 mcg PO MOTUWETHFRSA 10/03/16 08/03/19 History Loratadine 10 mg PO DAILY PRN 10/03/16 08/03/19 History Losartan Potassium [Cozaar] 50 mg PO DAILY 10/03/16 08/03/19 History Multivitamins, Thera [Multivitamin 1 tab PO DAILY 10/03/16 08/03/19 History (formulary)] Nitroglycerin Sl Tabs [Nitrostat] 0.4 mg SUBLINGUAL Q5M PRN 10/03/16 08/03/19 History Omeprazole [PriLOSEC] 20 mg PO DAILY 10/03/16 08/03/19 History Sennosides [Senna] 8.6 mg PO BID 10/03/16 08/03/19 History Vit C/E/Zn/Coppr/Lutein/Zeaxan 2 cap PO DAILY 10/03/16 08/03/19 History [Preservision Areds 2 Softgel] amLODIPine [Norvasc] 10 mg PO DAILY 10/03/16 08/03/19 History hydrALAZINE HCL 25 mg PO BID 10/03/16 08/03/19 History Atorvastatin [Lipitor] 40 mg PO HS 05/09/19 08/03/19 History Budesonide [Pulmicort] 0.5 mg INHALATION RT-BID 05/09/19 08/03/19 History Carvedilol [Coreg] 6.25 mg PO BID 05/09/19 08/03/19 History Ezetimibe [Zetia] 10 mg PO DAILY 05/09/19 08/03/19 History Hydrocortisone Cream 1 applic TOPICAL QID PRN 05/09/19 08/03/19 History [Hydrocortisone 2.5% Cream] Levothyroxine Sodium [Synthroid] 50 mcg PO PADILLA 05/09/19 08/03/19 History Yupelri 175mcg/3ml 175 mcg INHALATION RT-DAILY 05/09/19 08/03/19 History Clopidogrel [Plavix] 75 mg PO DAILY #30 tab 05/11/19 08/03/19 Rx Isosorbide Mononitrate ER [Imdur] 30 mg PO DAILY #30 tab.er.24h 05/11/19 08/03/19 Rx Potassium Chloride ER [K-Dur 20] 20 meq PO BID 08/03/19 08/03/19 History Allergies Allergy/AdvReac Type Severity Reaction Status Date / Time No Known Allergies Allergy Verified 08/03/19 13:59 Physical Exam Vitals: Vital Signs Temp Pulse Pulse Resp BP BP Pulse Ox 08/03/19 08:02 84 08/03/19 07:52 84 08/03/19 07:40 84 08/03/19 07:32 97.6 F 84 16 101/58 95 08/03/19 04:00 98.3 F 86 18 100/65 94 L 08/02/19 22:46 18 08/02/19 22:00 97.0 F L 98 18 127/66 91 L 08/02/19 19:02 90 18 111/68 94 L 08/02/19 17:14 21 08/02/19 17:11 98.3 F 96 18 112/63 91 L Intake and Output 08/02/19 08/03/19 08/03/19 22:59 06:59 14:59 Other: Voiding Method Toilet Toilet Toilet # Voids 2 Weight 87.997 kg Results CBC & Chem 7: 08/02/19 17:29 08/02/19 17:29 Labs: Abnormal Lab Results - Last 24 Hours (Table) 08/02/19 08/02/19 08/03/19 Range/Units 17:29 17:29 06:24 WBC 16.0 H (3.8-10.6) k/uL RBC 3.38 L (3.80-5.40) m/uL Hgb 11.3 L (11.4-16.0) gm/dL MCV 104.1 H (80.0-100.0) fL Plt Count 144 L (150-450) k/uL Lymphocytes # 13.0 H (1.0-4.8) k/uL Sodium 135 L (137-145) mmol/L Chloride 93 L (98-107) mmol/L Carbon Dioxide 38 H (22-30) mmol/L BUN 31 H (7-17) mg/dL Glucose 114 H (74-99) mg/dL Triglycerides 214 H (<150) mg/dL HDL Cholesterol 39 L (40-60) mg/dL Thrombosis Risk Factor Assmnt - Choose All That Apply Any of the Below Risk Factors Present?: Yes Each Factor Represents 1 point: Abnormal pulmonary function (COPD), Obesity (BMI >25), Swollen legs (current) Other Risk Factors: Yes Each Risk Factor Represents 3 Points: Age 75 years or older Other congenital or acquired thrombophilia - If yes, enter type in comment: No Thrombosis Risk Factor Assessment Total Risk Factor Score: 6 Thrombosis Risk Factor Assessment Level: High Risk
[2019-08-03] MEDS ORDERED: NALOXONE 0.4 MG/ML 1 ML VIAL IV PRN (19:53)
[2019-08-03] MEDS ORDERED: MAG HYDROX/AL HYDROX/SIMETH 30 ML CUP PO PRN (19:53)
[2019-08-03] MEDS ORDERED: CALCIUM CARBONATE 500 MG CHEWABLE PO PRN (19:53)
[2019-08-03] MEDS ORDERED: MAGNESIUM HYDROXIDE 2,400 MG/10 ML CUP PO PRN (19:53)
[2019-08-03] MEDS ORDERED: ACETAMINOPHEN TAB 325 MG TAB PO PRN (19:53)
[2019-08-03] MEDS ORDERED: LACTULOSE 20 GM/30 ML CUP PO PRN (19:53)
[2019-08-03] MEDS ORDERED: MELATONIN 3 MG TABLET PO PRN (19:53)
[2019-08-03] MEDS ORDERED: ONDANSETRON 4 MG/2 ML VIAL IVP PRN (19:53)
[2019-08-03] MEDS: ATORVASTATIN 40 MG TAB PO SCH (20:28)
[2019-08-03] MEDS: LORazepam 0.5 MG TAB PO PRN (20:28)
[2019-08-03] MEDS: methylPREDNISolone SOD SUCCI 40 MG/ML 1 ML VIAL IV SCH (20:28)
[2019-08-03] MEDS: INSULIN ASPART (NovoLOG) 100 UNIT/ML VIAL SQ SCH (22:03)
[2019-08-04] MEDS: methylPREDNISolone SOD SUCCI 40 MG/ML 1 ML VIAL IV SCH ×2 (04:00→12:10)
[2019-08-04] MEDS: FUROSEMIDE 10 MG/ML 4 ML VIAL IV SCH (04:00)
[2019-08-04 05:51] LABS: Calcium 9.2 mg/dL (8.4-10.2); Potassium 4.8 mmol/L (3.5-5.1)
[2019-08-04] MEDS ORDERED: LEVOTHYROXINE 50 MCG TAB PO SCH (06:30)
--- NOTE | 2019-08-04 07:33 | P.PN ---
Subjective Progress Note Date: 08/04/19 Principal diagnosis: Chest pain This is a very pleasant 79-year-old female patient with a past medical history significant for coronary artery disease, the patient does follow with a lands resource manager at [facility], chronic obstructive pulmonary disease, hypertension, and dyslipidemia, presented to the hospital complaining of chest discomfort. She states that for the last several weeks she has been experiencing intermittent episodes of chest discomfort, in the mid of the chest, as a pressure/squeezing, with no radiation to the arms or neck or shoulders, and no associated symptoms of shortness of breath, sweating, dizziness, or syncope. She does have chronic shortness of breath with exertion related to COPD. She was admitted recently to the hospital with COPD exacerbation and mildly abnormal troponin. We consulted to see her at that point we advised maximize medical treatment. She stated that she did have a follow-up with her primary lands resource manager recently who increased her oral diuretics. Currently the patient is chest pain-free. EKG showed sinus rhythm was nonspecific changes. The cardiac enzymes were checked and came in to be unremarkable. During her recent admission an echocardiogram was performed and revealed normal LV function was mild to moderate MR, moderate to severe TR, and severe pulmonary hypertension. The patient was seen today, August [id number]. Overall she is doing better. Hemodynamically she continues to be stable was markedly low blood pressure. She stated that no more episodes of chest discomfort. The shortness of breath has improved. From a cardiovascular standpoint of view, the patient can be discharged home and follow-up with her lands resource manager. Objective - Vital Signs Vital signs: Vital Signs Temp 97.9 F 08/04/19 04:00 Pulse 92 08/04/19 04:00 Resp 18 08/04/19 04:00 BP 102/63 08/04/19 04:00 Pulse Ox 94 L 08/04/19 04:00 Intake & Output 08/03/19 08/04/19 08/04/19 18:59 06:59 18:59 Intake Total 1080 350 Output Total 400 Balance 1080 -50 Weight 87.7 kg Intake: Oral 1080 350 Output: Urine 400 Other: Voiding Method Toilet Toilet - Constitutional General appearance: Present: no acute distress - Respiratory Respiratory: bilateral: diminished - Cardiovascular Rhythm: regular Heart sounds: normal: S1, S2 - Labs CBC & Chem 7: 08/02/19 17:29 08/04/19 05:25 Labs: Abnormal Lab Results - Last 24 Hours (Table) 08/04/19 Range/Units 05:25 Sodium 136 L (137-145) mmol/L Chloride 92 L (98-107) mmol/L Carbon Dioxide 34 H (22-30) mmol/L BUN 37 H (7-17) mg/dL Creatinine 1.22 H (0.52-1.04) mg/dL Glucose 258 H (74-99) mg/dL Assessment and Plan Assessment: Assessment Intermittent episodes of chest discomfort History of coronary artery disease Chronic obstructive pulmonary disease Multiple comorbid conditions Plan Continue current medical regimen Acute coronary syndrome was ruled out Follow up with her primary lands resource manager
[2019-08-04] MEDS: ALBUTEROL NEBULIZED 2.5 MG/3 ML INHALATION PRN (08:21)
[2019-08-04] MEDS: BUDESONIDE 0.5 MG/2 ML NEBU INHALATION SCH (08:21)
[2019-08-04] MEDS: FORMOTEROL FUMARATE 20 MCG/2 ML NEBU INHALATION SCH (08:21)
[2019-08-04] MEDS ORDERED: ASPIRIN 81 MG PO SCH (09:00)
[2019-08-04 09:05] VITALS: BP 100/64; PULSE 95; RESP 16; TEMP 97.8
[2019-08-04] MEDS: INSULIN ASPART (NovoLOG) 100 UNIT/ML VIAL SQ SCH ×2 (09:07→12:11)
[2019-08-04] MEDS: CARVEDILOL 6.25 MG TAB PO SCH (09:08)
[2019-08-04] MEDS: ISOSORBIDE MONONITRATE ER 30 MG TAB.ER.24H PO SCH (09:08)
[2019-08-04] MEDS: PANTOPRAZOLE 40 MG TABLET PO SCH (09:08)
[2019-08-04] MEDS: amLODIPine 10 MG TAB PO SCH (09:08)
[2019-08-04] MEDS: LOSARTAN 50 MG TAB PO SCH (09:08)
[2019-08-04] MEDS: MULTIVITAMINS, THERA 1 EACH TAB PO SCH (09:09)
[2019-08-04] MEDS: EZETIMIBE 10 MG TAB PO SCH (09:09)
[2019-08-04] MEDS: hydrALAZINE HCL 25 MG TAB PO SCH (09:09)
--- NOTE | 2019-08-04 21:40 | P.DS ---
Providers Date of admission: 08/04/19 09:03 Expected date of discharge: 08/04/19 Attending physician: Shekhar Gold Consults: 08/02/19 19:30 Consult Physician Urgent Consulting Provider: Marco Padilla Consult Reason/Comments: chest pain Do you want consulting provider notified?: Yes Primary care physician: Radha Dooley [facility] Course: Chief Complaint: Shortness of breath History of presenting complaint: This is a very pleasant 79-year-old patient of Dr. Steph Dooley. Chronic stable medical conditions include hyperlipidemia, hypertension, obstructive sleep apnea does not use a CPAP machine, hypothyroid, CLL, macular degeneration, coronary artery disease with stent.-In 2007. Patient does use oxygen at home anyway 4-5 L. patient presents with not feeling well for about 2 weeks. Has noted increasing edema. Decreased appetite is slowly picking up. Patient had a baseline short of breath. Has noticed to be more short of breath. Also been having chest heaviness off and on for 2 weeks. This feels somewhat weak. Patient always sits up and sleeps in a chair. Denies any fever and chills. No cough.. Admitted with CHF exacerbation and COPD exacerbation. Treated with IV Lasix, bronchodilator steroids. Today-feeling much better. Tolerating a diet. Dennis wrap on his lower extremity. Discussed with the patient. Questions were answered. Discussion and discharge planning more than 35 minutes Consultation: Dr. Padilla from cardiology Physical examination: VITAL SIGNS: 97.8, 95, 16, 100/64, 91% on 4 L GENERAL: Sitting upon a chair, appearing better EYES: Pupils equal. Conjunctiva normal. HEENT: External appearance of nose and ears normal, oral cavity grossly normal. NECK: JVD possibly raised; masses not palpable. HEART: First and second heart sounds are normal; edema decreased LUNGS:[ Respiratory rate increased, improved air entry ABDOMEN: Soft, nontender, liver spleen not palpable, no masses palpable. PSYCH: Alert and oriented x3; mood and affect normal. Investigations: Potassium 4.8 creatinine 1.2 to Previous testing White count 16 hemoglobin 11.3 platelets 144 potassium 5.1 bun 31 creatinine 0.93 Troponin I 3 negative LDL 65 proBNP 1590 EKG tracing personally reviewed by me-normal sinus rhythm some ST segment changes with poor baseline Chest x-ray film personally reviewed by me-showing some chronic changes and possible fluid in the fissure 2-D echocardiogram from May 2019 shows moderate concentric LVH and EF of 55- 60%, moderate to severe tricuspid regurgitation, severe pulmonary hypertension Assessment: -Acute congestive heart failure exacerbation from diastolic dysfunction EF 55- 60% from underlying coronary artery disease, POA-improved -Acute on chronic hypoxic respiratory failure, POA -Moderate to severe tricuspid regurgitation, nontraumatic -Secondary severe pulmonary hypertension - Acute COPD in an ex-smoker, exacerbation, POA-improved -Essential hypertension -Hyperlipidemia -Hypothyroid -CLL -Chronic macular degeneration -Coronary artery disease with prior history of stent -Obesity BMI 33.4 Disposition: Home Patient Condition at Discharge: Stable Plan - Discharge Summary New Discharge Prescriptions: New Melatonin 3 mg PO HS PRN tablet PRN Reason: Insomnia predniSONE 10 mg PO DAILY #30 tab Continue Albuterol Inhaler (Mhu) [Ventolin Hfa Inhaler (Mhu)] 2 puff INHALATION RT-QID PRN PRN Reason: Shortness Of Breath amLODIPine [Norvasc] 10 mg PO DAILY Arformoterol Tartrate [Brovana] 15 mcg INHALATION RT-BID Aspirin EC [Ecotrin Low Dose] 81 mg PO DAILY Clotrimazole/Betamethasone Dip [Lotrisone Cream] 1 applic TOPICAL BID PRN PRN Reason: Skin Irritation Fluticasone Nasal [place] [Flonase Nasal [place]] 1 spray EA NOSTRIL DAILY Furosemide [Lasix] 40 mg PO BID hydrALAZINE HCL 25 mg PO BID Levothyroxine Sodium [Synthroid] 100 mcg PO MOTUWETHFRSA LORazepam [Ativan] 0.5 mg PO BID PRN PRN Reason: Anxiety Losartan Potassium [Cozaar] 50 mg PO DAILY Multivitamins, Thera [Multivitamin (formulary)] 1 tab PO DAILY Nitroglycerin Sl Tabs [Nitrostat] 0.4 mg SUBLINGUAL Q5M PRN PRN Reason: Chest Pain Omeprazole [PriLOSEC] 20 mg PO DAILY Sennosides [Senna] 8.6 mg PO BID Vit C/E/Zn/Coppr/Lutein/Zeaxan [Preservision Areds 2 Softgel] 2 cap PO DAILY Yupelri 175mcg/3ml 175 mcg INHALATION RT-DAILY Atorvastatin [Lipitor] 40 mg PO HS Budesonide [Pulmicort] 0.5 mg INHALATION RT-BID Carvedilol [Coreg] 6.25 mg PO BID Ezetimibe [Zetia] 10 mg PO DAILY Hydrocortisone Cream [Hydrocortisone 2.5% Cream] 1 applic TOPICAL QID PRN PRN Reason: Rash Levothyroxine Sodium [Synthroid] 50 mcg PO PADILLA Isosorbide Mononitrate ER [Imdur] 30 mg PO DAILY #30 tab.er.24h Clopidogrel [Plavix] 75 mg PO DAILY #30 tab Potassium Chloride ER [K-Dur 20] 20 meq PO BID Discontinued Loratadine 10 mg PO DAILY PRN PRN Reason: Allergy Symptoms Discharge Medication List Albuterol Inhaler (Mhu) [Ventolin Hfa Inhaler (Mhu)] 2 puff INHALATION RT-QID PRN 10/03/16 [History] Arformoterol Tartrate [Brovana] 15 mcg INHALATION RT-BID 10/03/16 [History] Aspirin EC [Ecotrin Low Dose] 81 mg PO DAILY 10/03/16 [History] Clotrimazole/Betamethasone Dip [Lotrisone Cream] 1 applic TOPICAL BID PRN 10/03/16 [History] Fluticasone Nasal [place] [Flonase Nasal [place]] 1 spray EA NOSTRIL DAILY 10/03/16 [History] Furosemide [Lasix] 40 mg PO BID 10/03/16 [History] LORazepam [Ativan] 0.5 mg PO BID PRN 10/03/16 [History] Levothyroxine Sodium [Synthroid] 100 mcg PO MOTUWETHFRSA 10/03/16 [History] Losartan Potassium [Cozaar] 50 mg PO DAILY 10/03/16 [History] Multivitamins, Thera [Multivitamin (formulary)] 1 tab PO DAILY 10/03/16 [History] Nitroglycerin Sl Tabs [Nitrostat] 0.4 mg SUBLINGUAL Q5M PRN 10/03/16 [History] Omeprazole [PriLOSEC] 20 mg PO DAILY 10/03/16 [History] Sennosides [Senna] 8.6 mg PO BID 10/03/16 [History] Vit C/E/Zn/Coppr/Lutein/Zeaxan [Preservision Areds 2 Softgel] 2 cap PO DAILY 10/03/16 [History] amLODIPine [Norvasc] 10 mg PO DAILY 10/03/16 [History] hydrALAZINE HCL 25 mg PO BID 10/03/16 [History] Atorvastatin [Lipitor] 40 mg PO HS 05/09/19 [History] Budesonide [Pulmicort] 0.5 mg INHALATION RT-BID 05/09/19 [History] Carvedilol [Coreg] 6.25 mg PO BID 05/09/19 [History] Ezetimibe [Zetia] 10 mg PO DAILY 05/09/19 [History] Hydrocortisone Cream [Hydrocortisone 2.5% Cream] 1 applic TOPICAL QID PRN 05/09/19 [History] Levothyroxine Sodium [Synthroid] 50 mcg PO PADILLA 05/09/19 [History] Yupelri 175mcg/3ml 175 mcg INHALATION RT-DAILY 05/09/19 [History] Clopidogrel [Plavix] 75 mg PO DAILY #30 tab 05/11/19 [Rx] Isosorbide Mononitrate ER [Imdur] 30 mg PO DAILY #30 tab.er.24h 05/11/19 [Rx] Potassium Chloride ER [K-Dur 20] 20 meq PO BID 08/03/19 [History] Melatonin 3 mg PO HS PRN tablet 08/04/19 [Rx] predniSONE 10 mg PO DAILY #30 tab 08/04/19 [Rx] Follow up Appointment(s)/Referral(s): cardiology,dr [Other] - 1 Week Radha Dooley MD [Primary Care Provider] - 1-2 days Patient Instructions/Handouts: COPD (Chronic Obstructive Pulmonary Disease) (DC) Activity/Diet/Wound Care/Special Instructions: bmp -5 days put on acewraps and send home Discharge Disposition: HOME SELF-CARE
[2019-08-05 20:18] LABS: Glucose,Whole Blood 332 mg/dL (75-99)
--- NOTE | 2019-08-08 09:13 | CDI ---
Documentation Clarification Form Date: 08/08/2019 09:02:05 AM From: Amara PalmaKARLA, CCDS Admit Date: 08/04/2019 09:03:00 AM Patient Name: Amara Martinez Visit Number: [id number] Discharge Date: 08/04/2019 01:25:00 PM ATTENTION: The Clinical Documentation Specialists (CDI) and [facility] Coding Staff appreciate your assistance in clarifying documentation. Please respond to the clarification below the line at the bottom and electronically sign. The CDI & [facility] Coding staff will review the response and follow-up if needed. Please note: Queries are made part of the Legal Health Record. If you have any questions, please contact the author of this message via ITS. Dr. Shekhar Gold: The COVID-19 test obtained on 08/02/2019 was reported as Negative on 08/02/2019. Per case summary: 79 yo fem, presented to ED with SOB & epigastric pressure. Hx CHF, recent admit to [facility] & worked up for CHF, Lasix increased. c/o weakness & diarrhea. Has CLL & per CXR: COPD. Concern for ACS. Cardio C ruled out ACS. Was hypotensive. Discharge Summary: SOB w/increased edema, chest heaviness. Admitted w/acute on chronic diastolic CHF exacerbation & COPD exac. Patient history/risk factors: Clinical Indicators on 08/03: VS: PO 91 on 5Lnc LAB: WBC 16.0^, Pl Ct 144*, Na 135*, Cl 93*, CO2 38^, BUN 31^, Glucose 114^. UA negative RAD: CXR: Chronic changes, underlying COPD Treatment: INH Albuterol, INH Pulmicort, INH Perforomist, po Lasix, IV Lasix, IV Solumedrol In order to capture the severity of condition, please clarify the COVID-19 status: COVID-19 ruled out False negative, treating for COVID-19 o based on these clinical indicators: Other, please specify: (Last Form Revision: May 2019) MTDD
== END 2019-08-04 13:25 | disposition home or self-care (01) | DRG 291 ==
LOC: EC 17:08 → 1SOBS 19:30 → OBSVTOIN 08-04 09:03
PROVIDERS: ADMIT Hospitalist; ATTEND Hospitalist
DX: I11.0 Hypertensive heart disease with heart failure (principal); J96.21 Acute and chronic respiratory failure with hypoxia; J44.1 Chronic obstructive pulmonary disease with (acute) exacerbation; C91.10 Chronic lymphocytic leukemia of B-cell type not having achieved remission; I27.20 Pulmonary hypertension, unspecified; I50.33 Acute on chronic diastolic (congestive) heart failure; Z20.828 Contact with and (suspected) exposure to other viral communicable diseases; Z99.81 Dependence on supplemental oxygen; E78.5 Hyperlipidemia, unspecified; G47.33 Obstructive sleep apnea (adult) (pediatric); E03.9 Hypothyroidism, unspecified; I07.1 Rheumatic tricuspid insufficiency; I25.10 Atherosclerotic heart disease of native coronary artery without angina pectoris; H35.30 Unspecified macular degeneration; D75.89 Other specified diseases of blood and blood-forming organs; E66.9 Obesity, unspecified; Z68.33 Body mass index [BMI] 33.0-33.9, adult; Z79.82 Long term (current) use of aspirin; Z79.02 Long term (current) use of antithrombotics/antiplatelets; Z79.890 Hormone replacement therapy; Z79.51 Long term (current) use of inhaled steroids; Z79.899 Other long term (current) drug therapy; Z87.891 Personal history of nicotine dependence; Z85.828 Personal history of other malignant neoplasm of skin; Z82.49 Family history of ischemic heart disease and other diseases of the circulatory system; Z81.1 Family history of alcohol abuse and dependence
CPT/HCPCS: 36415; 71046; 80048; 80053; 80061; 81003; 83605; 83690; 83735; 83880; 84484; 85025; 85610; 85730; 93005; 94640; 99285

== ENCOUNTER 2019-10-02 02:01 | Inpatient (IN) | payer MEDICARE, BC ==
[2019-10-02] MEDS ORDERED: methylPREDNISolone SOD SUCCI 125 MG/2 ML VIAL IV STA (02:20)
[2019-10-02] MEDS ORDERED: FUROSEMIDE 10 MG/ML 4 ML VIAL IV STA (02:20)
[2019-10-02] MEDS ORDERED: IPRATROPIUM-ALBUTEROL 3 ML NEB INHALATION STA (02:20)
--- NOTE | 2019-10-02 02:20 | ED ---
SOB HPI - General Chief Complaint: Shortness of Breath Stated Complaint: ROHITH Time Seen by Provider: 10/02/19 02:15 Source: patient, EMS, RN notes reviewed, old records reviewed Mode of arrival: EMS Limitations: no limitations - History of Present Illness Initial Comments: Physical 7-year-old female DF for evaluation she presents for persistent hypoxia. Recent recently finished a steroid treatment. Patient states usually of QRS or couple months and she is retakes/hospital admission a few months ago, no fevers no chest pain. Patient is recent follow-up note rib injuries or side injuries chest on her left hand and left arm. No current chest pain she admits to shortness of breath all improve here in the ER with increased oxygen, breathing treatments MD Complaint: shortness of breath, cough, anxiety -: hour(s) Severity: moderate Severity scale (1-10): 7 Consistency: constant Improves With: oxygen, rest, bronchodilators, upright position Worsens With: nothing Known History Of: COPD, congestive heart failure Context: recent URI Associated Symptoms: denies other symptoms Treatments Prior to Arrival: none - Related Data Home Medications Medication Instructions Recorded Confirmed Albuterol Inhaler (Mhu) [Ventolin 2 puff INHALATION RT-QID PRN 10/03/16 08/03/19 Hfa Inhaler (Mhu)] Arformoterol Tartrate [Brovana] 15 mcg INHALATION RT-BID 10/03/16 08/03/19 Aspirin EC [Ecotrin Low Dose] 81 mg PO DAILY 10/03/16 08/03/19 Clotrimazole/Betamethasone Dip 1 applic TOPICAL BID PRN 10/03/16 08/03/19 [Lotrisone Cream] Fluticasone Nasal [place] [Flonase 1 spray EA NOSTRIL DAILY 10/03/16 08/03/19 Nasal [place]] Furosemide [Lasix] 40 mg PO BID 10/03/16 08/03/19 LORazepam [Ativan] 0.5 mg PO BID PRN 10/03/16 08/03/19 Levothyroxine Sodium [Synthroid] 100 mcg PO MOTUWETHFRSA 10/03/16 08/03/19 Losartan Potassium [Cozaar] 50 mg PO DAILY 10/03/16 08/03/19 Multivitamins, Thera [Multivitamin 1 tab PO DAILY 10/03/16 08/03/19 (formulary)] Nitroglycerin Sl Tabs [Nitrostat] 0.4 mg SUBLINGUAL Q5M PRN 10/03/16 08/03/19 Omeprazole [PriLOSEC] 20 mg PO DAILY 10/03/16 08/03/19 Sennosides [Senna] 8.6 mg PO BID 10/03/16 08/03/19 Vit C/E/Zn/Coppr/Lutein/Zeaxan 2 cap PO DAILY 10/03/16 08/03/19 [Preservision Areds 2 Softgel] amLODIPine [Norvasc] 10 mg PO DAILY 10/03/16 08/03/19 hydrALAZINE HCL 25 mg PO BID 10/03/16 08/03/19 Atorvastatin [Lipitor] 40 mg PO HS 05/09/19 08/03/19 Budesonide [Pulmicort] 0.5 mg INHALATION RT-BID 05/09/19 08/03/19 Ezetimibe [Zetia] 10 mg PO DAILY 05/09/19 08/03/19 Hydrocortisone Cream 1 applic TOPICAL QID PRN 05/09/19 08/03/19 [Hydrocortisone 2.5% Cream] Levothyroxine Sodium [Synthroid] 50 mcg PO PADILLA 05/09/19 08/03/19 Yupelri 175mcg/3ml 175 mcg INHALATION RT-DAILY 05/09/19 08/03/19 carvediloL [Coreg] 6.25 mg PO BID 05/09/19 08/03/19 Potassium Chloride ER [K-Dur 20] 20 meq PO BID 08/03/19 08/03/19 Previous Rx's Medication Instructions Recorded Clopidogrel [Plavix] 75 mg PO DAILY #30 tab 05/11/19 Isosorbide Mononitrate ER [Imdur] 30 mg PO DAILY #30 tab.er.24h 05/11/19 Melatonin 3 mg PO HS PRN tablet 08/04/19 predniSONE 10 mg PO DAILY #30 tab 08/04/19 Allergies Allergy/AdvReac Type Severity Reaction Status Date / Time No Known Allergies Allergy Verified 08/03/19 13:59 Review of Systems ROS Statement: Those systems with pertinent positive or pertinent negative responses have been documented in the HPI. ROS Other: All systems not noted in ROS Statement are negative. Past Medical History Past Medical History: Cancer, Heart Failure, COPD, Hyperlipidemia, Hypertension, Sleep Apnea/CPAP/BIPAP, Thyroid Disorder Additional Past Medical History / Comment(s): CLL. sleep apnea. macular degeneration. Skin ca History of Any Multi-Drug Resistant Organisms: None Reported Past Surgical History: Heart Catheterization With Stent, Tonsillectomy Additional Past Surgical History / Comment(s): d & c Past Anesthesia/Blood Transfusion Reactions: No Reported Reaction Date of Last Stent Placement:: 2007 Past Psychological History: No Psychological Hx Reported Past Alcohol Use History: Daily Past Drug Use History: None Reported - Past Family History Mother Family Medical History: Congestive Heart Failure (CHF) Father Family Medical History: No Reported History Additional Family Medical History / Comment(s): "Alcohol problems" Chirrosis General Exam Limitations: no limitations General appearance: alert, in no apparent distress, anxious Head exam: Present: atraumatic, normocephalic, normal inspection Eye exam: Present: normal appearance, PERRL, EOMI. Absent: scleral icterus, conjunctival injection, periorbital swelling ENT exam: Present: normal exam, mucous membranes moist Neck exam: Present: normal inspection. Absent: tenderness, meningismus, lymp hadenopathy Respiratory exam: Present: normal lung sounds bilaterally, respiratory distress, wheezes, accessory muscle use, decreased breath sounds, prolonged expiratory. Absent: rales, rhonchi, stridor Cardiovascular Exam: Present: regular rate, normal rhythm, normal heart sounds. Absent: systolic murmur, diastolic murmur, rubs, gallop, clicks GI/Abdominal exam: Present: soft, normal bowel sounds. Absent: distended, t enderness, guarding, rebound, rigid Extremities exam: Present: normal inspection, full ROM, normal capillary refill. Absent: tenderness, pedal edema, joint swelling, calf tenderness Back exam: Present: normal inspection Neurological exam: Present: alert, oriented X3, CN II-XII intact Psychiatric exam: Present: normal affect, normal mood Skin exam: Present: warm, dry, intact, normal color. Absent: rash Course Vital Signs 10/02/19 10/02/19 10/02/19 02:02 02:10 02:55 Temperature 97.6 F 97.6 F Pulse Rate 90 91 92 Respiratory 18 18 Rate Blood Pressure 115/59 115/59 O2 Sat by Pulse 88 L 89 L Oximetry 10/02/19 10/02/19 03:01 03:13 Temperature Pulse Rate 96 87 Respiratory 16 Rate Blood Pressure 103/52 O2 Sat by Pulse 92 L Oximetry - Reevaluation(s) Reevaluation #1: 10/02/19 02:19 Medical record is reviewed Reevaluation #2: 10/02/19 03:56 Patient is feeling better after prolonged breathing treatments Reevaluation #3: 10/02/19 03:56 Patient currently resting comfortably Medical Decision Making - Medical Decision Making 79 female to be admitted for COPD exacerbation with hypoxia sepsis by poor recall, nightly has adequate IV resuscitation based on ideal body weight, patient to be admitted for IV antibiotics and current cardiopulmonary evaluation - Lab Data Result diagrams: 10/02/19 02:10 10/02/19 02:10 Lab Results 10/02/19 10/02/19 10/02/19 Range/Units 02:10 02:10 02:10 WBC 43.4 H (3.8-10.6) k/uL RBC 3.15 L (3.80-5.40) m/uL Hgb 10.6 L (11.4-16.0) gm/dL Hct 34.2 (34.0-46.0) % MCV 108.8 H (80.0-100.0) fL MCH 33.7 (25.0-35.0) pg MCHC 31.0 (31.0-37.0) g/dL RDW 14.5 (11.5-15.5) % Plt Count 113 L (150-450) k/uL Neutrophils % (Manual) 32 % Lymphocytes % (Manual) 68 % Neutrophils # (Manual) 13.89 H (1.3-7.7) k/uL Lymphocytes # (Manual) 29.51 H (1.0-4.8) k/uL Nucleated RBCs 0 (0-0) /100 WBC Manual Slide Review Performed Polychromasia Present Hypochromasia Marked Anisocytosis (manual) Present Macrocytosis Marked A PT 9.9 (9.0-12.0) sec INR 0.9 (<1.2) APTT 21.4 L (22.0-30.0) sec Sodium 134 L (137-145) mmol/L Potassium 6.4 H* (3.5-5.1) mmol/L Chloride 95 L (98-107) mmol/L Carbon Dioxide 31 H (22-30) mmol/L Anion Gap 8 mmol/L BUN 65 H (7-17) mg/dL Creatinine 1.62 H (0.52-1.04) mg/dL Est GFR (CKD-EPI)AfAm 35 (>60 ml/min/1.73 sqM) Est GFR (CKD-EPI)NonAf 30 (>60 ml/min/1.73 sqM) Glucose 315 H (74-99) mg/dL Plasma Lactic Acid Charles (0.7-2.0) mmol/L Calcium 8.6 (8.4-10.2) mg/dL Magnesium 1.9 (1.6-2.3) mg/dL Total Bilirubin 0.6 (0.2-1.3) mg/dL AST 18 (14-36) U/L ALT 16 (4-34) U/L Alkaline Phosphatase 70 (38-126) U/L Troponin I (0.000-0.034) ng/mL NT-Pro-B Natriuret Pep pg/mL Total Protein 5.9 L (6.3-8.2) g/dL Albumin 3.9 (3.5-5.0) g/dL 10/02/19 10/02/19 10/02/19 Range/Units 02:10 02:10 02:10 WBC (3.8-10.6) k/uL RBC (3.80-5.40) m/uL Hgb (11.4-16.0) gm/dL Hct (34.0-46.0) % MCV (80.0-100.0) fL MCH (25.0-35.0) pg MCHC (31.0-37.0) g/dL RDW (11.5-15.5) % Plt Count (150-450) k/uL Neutrophils % (Manual) % Lymphocytes % (Manual) % Neutrophils # (Manual) (1.3-7.7) k/uL Lymphocytes # (Manual) (1.0-4.8) k/uL Nucleated RBCs (0-0) /100 WBC Manual Slide Review Polychromasia Hypochromasia Anisocytosis (manual) Macrocytosis PT (9.0-12.0) sec INR (<1.2) APTT (22.0-30.0) sec Sodium (137-145) mmol/L Potassium (3.5-5.1) mmol/L Chloride (98-107) mmol/L Carbon Dioxide (22-30) mmol/L Anion Gap mmol/L BUN (7-17) mg/dL Creatinine (0.52-1.04) mg/dL Est GFR (CKD-EPI)AfAm (>60 ml/min/1.73 sqM) Est GFR (CKD-EPI)NonAf (>60 ml/min/1.73 sqM) Glucose (74-99) mg/dL Plasma Lactic Acid Charles 1.6 (0.7-2.0) mmol/L Calcium (8.4-10.2) mg/dL Magnesium (1.6-2.3) mg/dL Total Bilirubin (0.2-1.3) mg/dL AST (14-36) U/L ALT (4-34) U/L Alkaline Phosphatase (38-126) U/L Troponin I 0.016 (0.000-0.034) ng/mL NT-Pro-B Natriuret Pep 4080 pg/mL Total Protein (6.3-8.2) g/dL Albumin (3.5-5.0) g/dL - EKG Data -: EKG Interpreted by Me (EKG is sinus rhythm 92 [place] 182 QRS 84 QTC 432) - Radiology Data Radiology results: report reviewed (Chest x-ray is insignificant for acute disease), image reviewed Critical Care Time Critical Care Time: Yes Total Critical Care Time: 31 Disposition Clinical Impression: Acute exacerbation of chronic obstructive pulmonary disease, COPD (chronic obstructive pulmonary disease), Hypoxemia, Sepsis, Hyperkalemia, Renal insufficiency Disposition: ADMITTED IP TO THIS HOSP Condition: Fair Is patient prescribed a controlled substance at d/c from ED?: No Referrals: Radha Dooley MD [Primary Care Provider] - 1-2 days
[2019-10-02] MEDS ORDERED: IPRATROPIUM-ALBUTEROL 3 ML NEB INHALATION PRN ×2 (02:27→15:25)
[2019-10-02] MEDS ORDERED: AZITHROMYCIN 500 MG in SODIUM CHLORIDE 0.9% 250 ML IVPB STA (02:28)
[2019-10-02 02:42] LABS: Albumin 3.9 g/dL (3.5-5.0); Calcium 8.6 mg/dL (8.4-10.2); Magnesium 1.9 mg/dL (1.6-2.3); Total Bilirubin 0.6 mg/dL (0.2-1.3); Total Protein 5.9 g/dL (6.3-8.2)
[2019-10-02 02:45] LABS: Potassium 6.4 mmol/L (3.5-5.1)
[2019-10-02 02:49] LABS: INR 0.9 (<1.2); Prothrombin Time 9.9 sec (9.0-12.0)
[2019-10-02 02:50] LABS: HCT 34.2 % (34.0-46.0); HGB 10.6 gm/dL (11.4-16.0); Hypochromasia Marked; MCH 33.7 pg (25.0-35.0); MCV 108.8 fL (80.0-100.0); Macrocytosis Marked; Mean Platelet Volume 8.2; Platelet Count 113 k/uL (150-450); RBC 3.15 m/uL (3.80-5.40); RDW 14.5 % (11.5-15.5); WBC 43.4 k/uL (3.8-10.6)
[2019-10-02 02:54] LABS: Partial Thromboplastin Time 21.4 sec (22.0-30.0)
--- NOTE | 2019-10-02 03:00 | XR ---
EXAMINATION TYPE: XR chest 1V portable DATE OF EXAM: 10/02/2019 COMPARISON: 08/02/2019 HISTORY: Short of breath TECHNIQUE: Single view FINDINGS: There is coarse interstitial density in both lungs. There is patchy atelectasis at the lung bases. Heart appears enlarged. There is no definite heart failure. There are chest leads. IMPRESSION: Interstitial pulmonary density and patchy atelectasis at the lung bases increased compare d to old exam. No definite heart failure seen. No pleural fluid seen to suggest heart failure.
[2019-10-02 03:11] LABS: Lymphocytes # (M) 29.51 k/uL (1.0-4.8); Neutrophils # (M) 13.89 k/uL (1.3-7.7); Neutrophils % (M) 32 %; Nucleated Red Blood Cells 0 /100 WBC (0-0); Total Cells Counted 100
[2019-10-02 03:12] LABS: Anisocytosis (M) Present; Polychromasia Present
[2019-10-02] MEDS ORDERED: INSULIN REGULAR 100 UNIT/ML VIAL IV ONE (03:54)
[2019-10-02] MEDS ORDERED: SODIUM BICARB 8.4% 50 ML SYR (1 MEQ/ML) IV STA (03:54)
[2019-10-02] MEDS ORDERED: DEXTROSE 50% SYRINGE 50 ML IVP STA (03:54)
[2019-10-02] MEDS: SODIUM CHLORIDE 0.9% 500 ML 500 ML IV SCH ×4 (04:03→06:34)
[2019-10-02] MEDS: SODIUM CHLORIDE 0.9% 1,000 ML IV SCH ×3 (04:18→17:06)
[2019-10-02] MEDS: methylPREDNISolone SOD SUCCI 125 MG/2 ML VIAL IV SCH ×3 (06:03→17:06)
[2019-10-02 06:50] LABS: Glucose,Whole Blood 339 mg/dL (75-99)
[2019-10-02] MEDS: INSULIN ASPART (NovoLOG) 100 UNIT/ML VIAL SQ SCH ×3 (06:54→17:06)
[2019-10-02] MEDS: ALBUTEROL NEBULIZED 2.5 MG/3 ML INHALATION SCH ×2 (07:10→11:05)
[2019-10-02] MEDS ORDERED: ALBUTEROL NEBULIZED 2.5 MG/3 ML INHALATION PRN (09:55)
[2019-10-02] MEDS ORDERED: HYDROCORTISONE 1% CREAM 30 GM TUBE TOPICAL PRN (09:55)
[2019-10-02] MEDS ORDERED: MELATONIN 3 MG TABLET PO PRN (09:55)
[2019-10-02] MEDS ORDERED: CLOTRIMAZOLE/BETAMETH 1-0.05% CREAM 45 GM TUBE TOPICAL PRN (09:55)
[2019-10-02] MEDS ORDERED: NITROGLYCERIN SL TABS 0.4 MG TAB SUBLINGUAL PRN (09:55)
[2019-10-02] MEDS ORDERED: PROMETHAZ COD PO PRN (09:55)
[2019-10-02 12:04] LABS: Glucose,Whole Blood 418 mg/dL (75-99)
[2019-10-02] MEDS ORDERED: metFORMIN 500 MG TAB PO STA (12:13)
[2019-10-02] MEDS ORDERED: INSULIN ASPART (NovoLOG) 100 UNIT/ML VIAL SQ ONE (12:15)
[2019-10-02 12:37] LABS: Appearance,Urine Clear (Clear); Bilirubin,Urine Negative (Negative); Blood,Urine Negative (Negative); Color,Urine Light Yellow; Glucose,Urine (UA) 3+ (Negative); Ketones,Urine Negative (Negative); Leukocyte Esterase,Urine Negative (Negative); Nitrite,Urine Negative (Negative); Protein,Urine Negative (Negative); Specific Gravity,Urine 1.012 (1.001-1.035); Urobilinogen,Urine <2.0 mg/dL (<2.0)
[2019-10-02] MEDS: INSULIN DETEMIR (LEVEMIR) 100 UNIT/ML SYR SQ SCH (13:25)
[2019-10-02] MEDS ORDERED: FUROSEMIDE 40 MG TAB PO SCH (16:00)
[2019-10-02] MEDS: IPRATROPIUM-ALBUTEROL 3 ML NEB INHALATION SCH ×2 (16:12→19:33)
[2019-10-02 16:52] LABS: Glucose,Whole Blood 262 mg/dL (75-99)
[2019-10-02] MEDS: metFORMIN 500 MG TAB PO SCH (17:06)
[2019-10-02] MEDS: carvediloL 6.25 MG TAB PO SCH (17:06)
--- NOTE | 2019-10-02 17:20 | CONS ---
CONSULTATION PULMONARY/CRITICAL CARE CONSULTATION: DATE OF SERVICE: 10/02/2019 REASON FOR CONSULTATION: Shortness of breath. This is a 79-year-old female, apparently well known to Dr. Zaragoza, who sees Dr. Radha lee at [facility]. The patient apparently presented to the emergency room on October 01. She came in via EMS at 2:00 in the morning with complaints of shortness of breath and low saturations on pulse oximetry. The patient apparently was in the hospital back in May. At that time she saw Dr. Zaragoza for COPD exacerbation. Subsequent to that she saw Dr. Zaragoza at the clinic at [facility], and recently she started herself on some prednisone with a burst and taper. Anyway, she was not taking antibiotics. She states that she was profoundly short of breath. No fever. No chills. No chest pain. She had a cough. Not producing any phlegm. She also apparently fell and injured her left hand, left arm and ribs. Currently denies any nausea, vomiting or diarrhea. There is no abdominal pain. No genitourinary complaints. Currently the patient is resting relatively comfortably in bed. She does not appear to be in any sort of distress. There is no conversational dyspnea, use of accessory muscles or audible wheezing. The patient does state that she feels a bit better since she has been in the hospital. She has a history of multiple medical problems, including chronic hypoxemic respiratory failure, advanced COPD, sleep apnea syndrome, secondary pulmonary hypertension, chronic lymphocytic leukemia, CAD and benign essential hypertension. CURRENT MEDICATIONS: Current medications are rather extensive and include albuterol inhaler, Brovana, aspirin, Lotrisone cream, Flonase nasal spray, Lasix, Ativan, Synthroid, Cozaar, multivitamins, sublingual nitroglycerin, Prilosec, Senna, eye vitamins, amlodipine, hydralazine, Lipitor, Pulmicort, Zetia, hydrocortisone cream, levothyroxine, Yupelri, Coreg, potassium, Plavix, Imdur, melatonin and prednisone. ALLERGIES: DENIED. PAST MEDICAL HISTORY: Past medical history includes COPD, CHF, hyperlipidemia, hypertension, sleep apnea syndrome, hypothyroidism, chronic lymphocytic leukemia, macular degeneration and skin cancer. SURGICAL HISTORY: Surgical history includes previous heart catheterization with stent, tonsillectomy, and D&C. SOCIAL HISTORY: Positive for previous tobacco use. Does not smoke currently. Does drink on a daily basis. Social drinker. No illicit drug use. FAMILY HISTORY: Positive for mother with CHF and father with alcoholic liver cirrhosis. REVIEW OF SYSTEMS: CONSTITUTIONAL: Negative. NEUROLOGIC: Negative. HEENT: Negative. CARDIOVASCULAR: Negative. PULMONARY: Shortness of breath and low saturations, nonproductive cough. GI: Negative. : Negative. RHEUMATOLOGIC: Negative. IMMUNOLOGIC: Negative. ENDOCRINOLOGIC: Negative. DERMATOLOGIC: Negative. PHYSICAL EXAMINATION: VITAL SIGNS: Current vital signs are reviewed. Temperature is 98.3, heart rate 85, respiratory rate 20, blood pressure 124/60, mean 81. Five-liter saturation is 91%. GENERAL APPEARANCE: Appears in no acute distress. Again, no audible wheezing, use of accessory muscles or conversational dyspnea. HEENT: Examination is grossly unremarkable. Nasal oxygen in place. NECK: Supple. Full range of motion. No adenopathy, thyromegaly or neck vein distention. CARDIOVASCULAR: Examination reveals regular rhythm and rate. Heart rate 85 beats per minute. S1, S2 normal. No S3, S4 or clear-cut murmur. Heart sounds are distant. LUNGS: Lungs reveal just some scattered rhonchi. No wheezes or crackles. Breath sounds are equal bilaterally but certainly diminished throughout. ABDOMEN: Soft. Bowel sounds are heard. EXTREMITIES: Intact. No cyanosis, clubbing or edema. There is some bruising of the left hand. No cyanosis or clubbing. SKIN: Without rash. NEUROLOGIC: Neurologic examination is brief but nonfocal. LABS: Reviewed. White count 43.4, hemoglobin 10.6, hematocrit 34.2, platelet count 113,000. PT 9.9, INR 0.9, and PTT is 21.4. Sodium 134, potassium 6.4, chloride 95. CO2 31. Anion gap is 8. BUN and creatinine were 65 and 1.62. The rest of the comprehensive metabolic profile is relatively normal. Troponin is 0.016. N-terminal proBNP 4080. Urine is negative. Microbiology is negative. Chest x-ray shows some atelectatic changes or infiltrates at the lung bases. The left side appears to be a bit more dense than the right side. There may be small effusions. Medications are reviewed. The patient is currently on albuterol [facility] p.r.n., Zithromax, Pulmicort, ceftriaxone, Atrovent and albuterol updrafts, and Solu-Medrol. Other medications are her usual medications. ASSESSMENT: 1. Chronic obstructive pulmonary disease exacerbation, possibly complicated by a mild non-bacterial non-infective tracheobronchitis. 2. Recent admissions to the hospital in May 2018 for chronic obstructive pulmonary disease exacerbation and chronic hypoxemic respiratory failure. 3. History of severe oxygen-dependent chronic obstructive pulmonary disease. 4. Chronic hypoxemic respiratory failure. 5. Severe sleep apnea syndrome with apnea-hypopnea index of 51, intolerant of CPAP or BiPAP. 6. Secondary pulmonary hypertension. 7. Chronic lymphocytic leukemia. 8. History of hypogammaglobulinemia. 9. Essential hypertension. 10.Coronary artery disease. 11.Acute kidney injury. 12.Degenerative joint disease. 13.Macular degeneration. 14.Multiple other medical problems and comorbidities. PLAN: The patient's medications are reviewed. Will make sure that she is on DuoNeb q.i.d. p.r.n. as well as Pulmicort and formoterol. She should continue on Solu-Medrol. She probably does not need the antibiotic at this time. We will check a procalcitonin level. Additional recommendations and suggestions are forthcoming. MMODL / IJN: [id number] /
[2019-10-02] MEDS: FORMOTEROL FUMARATE 20 MCG/2 ML NEBU INHALATION SCH (19:33)
[2019-10-02] MEDS: BUDESONIDE 1 MG/2 ML NEBU INHALATION SCH (19:33)
[2019-10-02] MEDS ORDERED: BUDESONIDE 0.5 MG/2 ML NEBU INHALATION SCH ×2 (20:00)
[2019-10-02] MEDS: ATORVASTATIN 40 MG TAB PO SCH (20:21)
[2019-10-02] MEDS: SENNOSIDES 8.6 MG TAB PO SCH (20:21)
[2019-10-02] MEDS: hydrALAZINE HCL 25 MG TAB PO SCH (20:21)
[2019-10-02 20:31] LABS: Glucose,Whole Blood 294 mg/dL (75-99)
[2019-10-02] MEDS ORDERED: SODIUM POLYSTYRENE SULFONATE 15 GM/60 ML BOTTLE PO STA (20:34)
--- NOTE | 2019-10-02 20:41 | P.HPIM ---
History of Present Illness H&P Date: 10/02/19 Chief Complaint: Short of breath History of presenting complaint: This is a very pleasant 79-year-old patient of Dr. Steph Dooley. Chronic stable medical conditions include hyperlipidemia, hypertension, obstructive sleep apnea does not use a CPAP machine, hypothyroid, CLL, macular degeneration, coronary artery disease with stent/2008. Home oxygen 4-5 L. . Patient now presents with progressive shortness of breath coming on for a few days. Some wheezing. Very slight cough no sputum. Appetite has been fair. No fever but chills. Tired. Slight edema. Admitted with COPD exacerbation. Follow up with Dr. Zaragoza from pulmonary. Review of systems: GEN.: Tired EYES: None HEENT: None NECK: None RESPIRATORY: As above CARDIOVASCULAR: No chest pain GASTROINTESTINAL: None GENITOURINARY: None MUSCULOSKELETAL: Joint pains LYMPHATICS: None HEMATOLOGICAL: None PSYCHIATRY: Slightly anxious NEUROLOGICAL: None Past medical history to include: COPD, CHF, hyperlipidemia, hypertension, obstructive sleep apnea does not use CPAP, hypothyroid, CLL, macular degeneration, skin cancer, coronary artery disease with stent, home oxygen 4 L Social history: Does smoke in the past. No alcohol. Lives alone. Does use a cane Physical examination: VITAL SIGNS: 97.6, 91, 18, 59, pulse ox 89% on 5 L, GENERAL: BMI 32.6, sitting up in a chair, a bit tired EYES: Pupils equal. Conjunctiva normal. HEENT: External appearance of nose and ears normal, oral cavity grossly normal. NECK: JVD unable to assess masses not palpable. HEART: First and second heart sounds are normal; mild edema present LUNGS:[ Respiratory rate increased, decreased breath sounds ABDOMEN: Soft, nontender, liver spleen not palpable, no masses palpable. PSYCH: Alert and oriented x3; mood and affect normal. NEUROLOGICAL: Cranial nerves grossly intact; no facial asymmetry, power and sensation grossly intact. LYMPHATICS: No lymph nodes palpable in the axilla and neck MUSCULAR skeletal: Evidence of OA Investigations: White count 43.4 hemoglobin 10.6 platelets 113 potassium 6.4 bun 65 creatinine 1.6 to Blood glucose 315, proBNP 4080 EKG tracing personally reviewed by me-shows abnormal T-wave in anterior leads, sinus rhythm Chest x-ray film personally reviewed by me-underexposed film, prominent interstitium, questionable infiltrate Previous testing: Patient is bun is 31 creatine 0.93 on August 01 2-D echocardiogram from May 2019 shows moderate concentric LVH and EF of 55- 60%, moderate to severe tricuspid regurgitation, severe pulmonary hypertension Assessment: - Acute COPD exacerbation in an ex-smoker, POA -Chronic congestive heart failure exacerbation from diastolic dysfunction EF 55- 60% from underlying coronary artery disease, POA -Acute on chronic hypoxic respiratory failure, POA -Moderate to severe tricuspid regurgitation, nontraumatic -Secondary severe pulmonary hypertension -Essential hypertension -Diabetes mellitus type II, uncontrolled with hyperglycemia -Hyperlipidemia -Hypothyroid -CLL -Chronic macular degeneration -Coronary artery disease with prior history of stent -Obesity BMI 32.6 -Chronic gait dysfunction uses a cane -Acute kidney injury -Hyperkalemia secondary to acute kidney injury -Highly doubt pneumonia-patient barely has cough. No sputum production. No fever. Plan: -IV and inhaled steroids, Kayexalate 30 g. Nebulized broncho-dilators. Hold o ff diuretics. Gentle hydration. Dennis wrap lower extremity. Telemetry. DC losartan. IV calcium gluconate. Past Medical History Past Medical History: Cancer, Heart Failure, COPD, Hyperlipidemia, Hypertension, Sleep Apnea/CPAP/BIPAP, Thyroid Disorder Additional Past Medical History / Comment(s): CLL. sleep apnea. macular degeneration. Skin ca History of Any Multi-Drug Resistant Organisms: None Reported Past Surgical History: Heart Catheterization With Stent, Tonsillectomy Additional Past Surgical History / Comment(s): d & c Past Anesthesia/Blood Transfusion Reactions: No Reported Reaction Date of Last Stent Placement:: 2007 Past Psychological History: No Psychological Hx Reported Smoking Status: Former smoker Past Alcohol Use History: Daily Past Drug Use History: None Reported - Past Family History Mother Family Medical History: Congestive Heart Failure (CHF) Father Family Medical History: No Reported History Additional Family Medical History / Comment(s): "Alcohol problems" Chirrosis Medications and Allergies Home Medications Medication Instructions Recorded Confirmed Type Arformoterol Tartrate [Brovana] 15 mcg INHALATION RT-BID 10/03/16 10/02/19 History Aspirin EC [Ecotrin Low Dose] 81 mg PO DAILY 10/03/16 10/02/19 History Clotrimazole/Betamethasone Dip 1 applic TOPICAL BID PRN 10/03/16 10/02/19 History [Lotrisone Cream] Fluticasone Nasal [place] [Flonase 1 spray EA NOSTRIL DAILY 10/03/16 10/02/19 History Nasal [place]] Furosemide [Lasix] 40 mg PO BID 10/03/16 10/02/19 History LORazepam [Ativan] 0.5 mg PO BID PRN 10/03/16 10/02/19 History Levothyroxine Sodium [Synthroid] 100 mcg PO DAILY 10/03/16 10/02/19 History Losartan Potassium [Cozaar] 50 mg PO DAILY 10/03/16 10/02/19 History Multivitamins, Thera [Multivitamin 1 tab PO DAILY 10/03/16 10/02/19 History (formulary)] Nitroglycerin Sl Tabs [Nitrostat] 0.4 mg SUBLINGUAL Q5M PRN 10/03/16 10/02/19 History Omeprazole [PriLOSEC] 20 mg PO DAILY 10/03/16 10/02/19 History Sennosides [Senna] 8.6 mg PO BID 10/03/16 10/02/19 History Vit C/E/Zn/Coppr/Lutein/Zeaxan 2 cap PO DAILY 10/03/16 10/02/19 History [Preservision Areds 2 Softgel] amLODIPine [Norvasc] 10 mg PO DAILY 10/03/16 10/02/19 History hydrALAZINE HCL 25 mg PO BID 10/03/16 10/02/19 History Atorvastatin [Lipitor] 40 mg PO HS 05/09/19 10/02/19 History Budesonide [Pulmicort] 0.5 mg INHALATION RT-BID 05/09/19 10/02/19 History Ezetimibe [Zetia] 10 mg PO DAILY 05/09/19 10/02/19 History Hydrocortisone Cream 1 applic TOPICAL QID PRN 05/09/19 10/02/19 History [Hydrocortisone 2.5% Cream] Levothyroxine Sodium [Synthroid] 50 mcg PO PADILLA 05/09/19 10/02/19 History Yupelri 175mcg/3ml 175 mcg INHALATION RT-DAILY 05/09/19 10/02/19 History carvediloL [Coreg] 6.25 mg PO BID 05/09/19 10/02/19 History Clopidogrel [Plavix] 75 mg PO DAILY #30 tab 05/11/19 10/02/19 Rx Isosorbide Mononitrate ER [Imdur] 30 mg PO DAILY #30 tab.er.24h 05/11/19 10/02/19 Rx Potassium Chloride ER [K-Dur 20] 20 meq PO DAILY 08/03/19 10/02/19 History Melatonin 3 mg PO HS PRN tablet 08/04/19 10/02/19 Rx Albuterol Inhaler [Ventolin Hfa 2 puff INHALATION RT-QID PRN 10/02/19 10/02/19 History Inhaler] Promethaz-Cod 6.25-10 mg/5 ml 5 ml PO Q6HR PRN 10/02/19 10/02/19 History [Phenergan with Codeine] metFORMIN HCL [Glucophage] 500 mg PO BID-W/MEALS 10/02/19 10/02/19 History predniSONE See Taper PO DAILY 10/02/19 10/02/19 History sitaGLIPtin PHOSPHATE [Januvia] 100 mg PO DAILY 10/02/19 10/02/19 History Allergies Allergy/AdvReac Type Severity Reaction Status Date / Time No Known Allergies Allergy Verified 10/02/19 07:43 Physical Exam Vitals: Vital Signs Temp Pulse Pulse Resp BP BP Pulse Ox 10/02/19 08:00 97.6 F 99 20 106/51 91 L 10/02/19 07:28 98 10/02/19 07:17 88 10/02/19 05:25 97.2 F L 89 24 102/54 90 L 10/02/19 03:13 87 16 103/52 92 L 10/02/19 03:01 96 10/02/19 02:55 92 10/02/19 02:10 97.6 F 91 18 115/59 89 L 10/02/19 02:02 97.6 F 90 18 115/59 88 L Intake and Output 10/01/19 10/02/19 10/02/19 22:59 06:59 14:59 Other: Weight 86.183 kg Results CBC & Chem 7: 10/02/19 02:10 10/02/19 02:10 Labs: Abnormal Lab Results - Last 24 Hours (Table) 10/02/19 10/02/19 10/02/19 Range/Units 02:10 02:10 02:10 WBC 43.4 H (3.8-10.6) k/uL RBC 3.15 L (3.80-5.40) m/uL Hgb 10.6 L (11.4-16.0) gm/dL MCV 108.8 H (80.0-100.0) fL Plt Count 113 L (150-450) k/uL Neutrophils # (Manual) 13.89 H (1.3-7.7) k/uL Lymphocytes # (Manual) 29.51 H (1.0-4.8) k/uL Macrocytosis Marked A APTT 21.4 L (22.0-30.0) sec Sodium 134 L (137-145) mmol/L Potassium 6.4 H* (3.5-5.1) mmol/L Chloride 95 L (98-107) mmol/L Carbon Dioxide 31 H (22-30) mmol/L BUN 65 H (7-17) mg/dL Creatinine 1.62 H (0.52-1.04) mg/dL Glucose 315 H (74-99) mg/dL POC Glucose (mg/dL) (75-99) mg/dL Total Protein 5.9 L (6.3-8.2) g/dL 10/02/19 Range/Units 06:48 WBC (3.8-10.6) k/uL RBC (3.80-5.40) m/uL Hgb (11.4-16.0) gm/dL MCV (80.0-100.0) fL Plt Count (150-450) k/uL Neutrophils # (Manual) (1.3-7.7) k/uL Lymphocytes # (Manual) (1.0-4.8) k/uL Macrocytosis APTT (22.0-30.0) sec Sodium (137-145) mmol/L Potassium (3.5-5.1) mmol/L Chloride (98-107) mmol/L Carbon Dioxide (22-30) mmol/L BUN (7-17) mg/dL Creatinine (0.52-1.04) mg/dL Glucose (74-99) mg/dL POC Glucose (mg/dL) 339 H (75-99) mg/dL Total Protein (6.3-8.2) g/dL Thrombosis Risk Factor Assmnt - Choose All That Apply Any of the Below Risk Factors Present?: No Other Risk Factors: Yes Each Risk Factor Represents 3 Points: Age 75 years or older Other congenital or acquired thrombophilia - If yes, enter type in comment: No Thrombosis Risk Factor Assessment Total Risk Factor Score: 3 Thrombosis Risk Factor Assessment Level: Moderate Risk
[2019-10-02] MEDS ORDERED: SODIUM CHLORIDE 0.9% 1,000 ML IV SCH (20:45)
[2019-10-02] MEDS ORDERED: ENOXAPARIN 40 MG/0.4 ML SYRINGE SQ SCH (20:45)
[2019-10-02] MEDS ORDERED: CALCIUM GLUCONATE 1 GM in SODIUM CHLORIDE 0.9% 100 ML IVPB ONE (21:00)
[2019-10-02] MEDS: ENOXAPARIN 30 MG/0.3 ML SYRINGE SQ SCH (21:08)
[2019-10-02 21:25] LABS: Calcium 8.4 mg/dL (8.4-10.2); Potassium 5.5 mmol/L (3.5-5.1)
[2019-10-02] MEDS: methylPREDNISolone SOD SUCCI 40 MG/ML 1 ML VIAL IV SCH (23:01)
[2019-10-03] MEDS ORDERED: AZITHROMYCIN 500 MG in SODIUM CHLORIDE 0.9% 250 ML IVPB SCH (03:00)
[2019-10-03] MEDS: SODIUM CHLORIDE 0.9% 1,000 ML IV SCH (04:08)
[2019-10-03 06:26] LABS: Potassium 5.4 mmol/L (3.5-5.1)
[2019-10-03] MEDS: metFORMIN 500 MG TAB PO SCH ×2 (06:30→17:15)
[2019-10-03] MEDS: PANTOPRAZOLE 40 MG TABLET PO SCH (06:30)
[2019-10-03] MEDS: LEVOTHYROXINE 100 MCG TAB PO SCH (06:30)
[2019-10-03] MEDS: carvediloL 6.25 MG TAB PO SCH ×2 (06:30→17:14)
[2019-10-03 07:00] LABS: Glucose,Whole Blood 311 mg/dL (75-99)
[2019-10-03] MEDS: INSULIN DETEMIR (LEVEMIR) 100 UNIT/ML SYR SQ SCH (07:35)
[2019-10-03] MEDS: INSULIN ASPART (NovoLOG) 100 UNIT/ML VIAL SQ SCH ×3 (07:35→17:15)
[2019-10-03] MEDS ORDERED: LOSARTAN 50 MG TAB PO SCH (09:00)
[2019-10-03] MEDS: IPRATROPIUM-ALBUTEROL 3 ML NEB INHALATION SCH ×4 (09:30→20:20)
[2019-10-03] MEDS: BUDESONIDE 1 MG/2 ML NEBU INHALATION SCH ×2 (09:30→20:20)
[2019-10-03] MEDS: FORMOTEROL FUMARATE 20 MCG/2 ML NEBU INHALATION SCH ×2 (09:30→20:20)
[2019-10-03] MEDS: SENNOSIDES 8.6 MG TAB PO SCH ×2 (09:52→20:55)
[2019-10-03] MEDS: MULTIVITAMINS, THERA 1 EACH TAB PO SCH (09:52)
[2019-10-03] MEDS: CLOPIDOGREL 75 MG TAB PO SCH (09:52)
[2019-10-03] MEDS: VIT A,C & E-LUTEIN-MINERALS 1 EACH TAB PO SCH (09:52)
[2019-10-03] MEDS: methylPREDNISolone SOD SUCCI 40 MG/ML 1 ML VIAL IV SCH (09:52)
[2019-10-03] MEDS: amLODIPine 10 MG TAB PO SCH (09:52)
[2019-10-03] MEDS: ISOSORBIDE MONONITRATE ER 30 MG TAB.ER.24H PO SCH (09:52)
[2019-10-03] MEDS: ASPIRIN 81 MG PO SCH (09:52)
[2019-10-03] MEDS: EZETIMIBE 10 MG TAB PO SCH (09:52)
[2019-10-03] MEDS: hydrALAZINE HCL 25 MG TAB PO SCH ×2 (09:52→20:55)
[2019-10-03 11:54] LABS: Glucose,Whole Blood 249 mg/dL (75-99)
--- NOTE | 2019-10-03 12:07 | P.PN ---
Subjective Progress Note Date: 10/03/19 Principal diagnosis: Shortness of breath On 10/03/2019 patient seen in follow-up on selective care unit, she is sitting up in the chair, appears to be in no acute distress, lung sounds reveal no wheezing, there are some bibasilar crackles. Patient is on 6 L of oxygen the pulse ox of 91%, hemodynamically she stable, no comparative chest pain, no significant cough or phlegm production, she's been afebrile, she does get short of breath with exertion, patient is upset that her Lasix was discontinued, and patient thinks that her lower extremity edema has gotten much worse, there is 1+ lower extremity edema. Patient appears to be in no acute distress, she claims that sees a little bit more labored in terms of her breathing. Today's labs have been reviewed, renal profile slightly improved, with creatinine down to 1.4, there is has been no nausea vomiting or diarrhea, potassium is 5.4. Objective - Vital Signs Vital signs: Vital Signs Temp 98.1 F 10/03/19 08:00 Pulse 96 10/03/19 09:55 Resp 22 10/03/19 08:00 BP 107/56 10/03/19 08:00 Pulse Ox 91 L 10/03/19 08:00 Intake & Output 10/02/19 10/03/19 10/03/19 18:59 06:59 18:59 Intake Total 300 150 Output Total 600 Balance 300 -600 150 Weight 94.7 kg Intake: Oral 300 150 Output: Urine 600 Other: Voiding Method Toilet # Voids 2 - Exam GENERAL EXAM: Alert, very pleasant, 79-year-old white female, sitting up in the recliner, on 6 L of oxygen per pulse ox of 91% comfortable in no apparent distress. HEAD: Normocephalic/atraumatic. EYES: Normal reaction of pupils, equal size. Conjunctiva pink, sclera white. NOSE: Clear with pink turbinates. THROAT: No erythema or exudates. NECK: No masses, no JVD, no thyroid enlargement, no adenopathy. CHEST: No chest wall deformity. Symmetrical expansion. LUNGS: Equal air entry with basilar crackles CVS: Regular rate and rhythm, normal S1 and S2, no gallops, no murmurs, no rubs ABDOMEN: Soft, nontender. No hepatosplenomegaly, normal bowel sounds, no guarding or rigidity. EXTREMITIES: No clubbing, no cyanosis, 2+ pulses and upper and lower extremities. 1+ pitting edema in lower extremities MUSCULOSKELETAL: Muscle strength and tone normal. SPINE: No scoliosis or deformity SKIN: No rashes CENTRAL NERVOUS SYSTEM: Alert and oriented -3. No focal deficits, tone is normal in all 4 extremities. PSYCHIATRIC: Alert and oriented -3. Appropriate affect. Intact judgment and insight. - Labs CBC & Chem 7: 10/02/19 02:10 10/03/19 05:32 Labs: Abnormal Lab Results - Last 24 Hours (Table) 10/02/19 10/02/19 10/02/19 Range/Units 11:58 12:25 16:47 Sodium (137-145) mmol/L Potassium (3.5-5.1) mmol/L BUN (7-17) mg/dL Creatinine (0.52-1.04) mg/dL Glucose (74-99) mg/dL POC Glucose (mg/dL) 418 H 262 H (75-99) mg/dL Calcium (8.4-10.2) mg/dL Urine Glucose (UA) 3+ H (Negative) 10/02/19 10/02/19 10/03/19 Range/Units 20:29 20:56 05:32 Sodium 136 L (137-145) mmol/L Potassium 5.5 H 5.4 H (3.5-5.1) mmol/L BUN 64 H 70 H (7-17) mg/dL Creatinine 1.60 H 1.40 H (0.52-1.04) mg/dL Glucose 292 H 313 H (74-99) mg/dL POC Glucose (mg/dL) 294 H (75-99) mg/dL Calcium 8.0 L (8.4-10.2) mg/dL Urine Glucose (UA) (Negative) 10/03/19 10/03/19 Range/Units 06:59 11:41 Sodium (137-145) mmol/L Potassium (3.5-5.1) mmol/L BUN (7-17) mg/dL Creatinine (0.52-1.04) mg/dL Glucose (74-99) mg/dL POC Glucose (mg/dL) 311 H 249 H (75-99) mg/dL Calcium (8.4-10.2) mg/dL Urine Glucose (UA) (Negative) Assessment and Plan Plan: Assessment: #1. Acute exacerbation of chronic obstructive pulmonary disease possibly comfortably by a mild nonbacterial noninfective tracheobronchitis #2. Right hypoxic respiratory failure related to chronic advanced COPD #3. Severe sleep apnea syndrome with YAYA score 51, intolerant of CPAP or BiPAP #4. Secondary pulmonary hypertension #5. Acute kidney injury, improving #6. History of CLL #7. Degenerative joint disease #8. Macular degeneration #9. Hypertension #10. History of hypogammaglobulinemia Plan: Continue bronchodilators, we'll switch the IV steroids to oral prednisone, renal profile is improved, patient is upset about her Lasix being discontinued, she thinks her lower extremity edema and breathing have gotten worse, we can probably cut back to IV fluids, patient is tolerating oral intake, no nausea or vomiting or diarrhea. We'll defer to the hospitalist for decision on restarting the Lasix I performed a history & physical examination of the patient and discussed their management with my nurse practitioner, Laurel Valadez. I reviewed the nurse pr actitioner's note and agree with the documented findings and plan of care. Lung sounds are positive for mild bibasilar crackles at the bases of lung dyer. The findings and the impression was discussed with the patient. I attest to the documentation by the nurse practitioner. Time with Patient: Less than 30
[2019-10-03] MEDS ORDERED: SODIUM POLYSTYRENE SULFONATE 15 GM/60 ML BOTTLE PO STA (12:31)
--- NOTE | 2019-10-03 16:38 | P.PN ---
Progress Note - Text Progress Note Date: 10/03/19 Chief Complaint: Short of breath History of presenting complaint: This is a very pleasant 79-year-old patient of Dr. Steph Dooley. Chronic stable medical conditions include hyperlipidemia, hypertension, obstructive sleep apnea does not use a CPAP machine, hypothyroid, CLL, macular degeneration, coronary artery disease with stent/2008. Home oxygen 4-5 L. . Patient now presents with progressive shortness of breath coming on for a few days. Some wheezing. Very slight cough no sputum. Appetite has been fair. No fever but chills. Tired. Slight edema. Admitted with COPD exacerbation. Follow up with Dr. Zaragoza from pulmonary. Admitted with acute COPD exacerbation and acute on chronic hypoxic respiratory failure. Started on bronchodilators steroids. Also fond of acute kidney injury. Creatinine was normal at 0.93, 8 weeks ago. Gentle hydration. Today-breathing a bit better. Did tolerate some diet. Sitting up in a chair. Review of systems: Was done for constitutional, cardiovascular, GI, pulmonary. relevant finding as above Active Medications Albuterol/Ipratropium (Duoneb 0.5 Mg-3 Mg/3 Ml Soln) 3 ml INHALATION RT-QID [facility] Last Admin: 10/03/19 16:27 Dose: 3 ml Documented by: Albuterol/Ipratropium (Duoneb 0.5 Mg-3 Mg/3 Ml Soln) 3 ml INHALATION RT-Q2H PRN PRN Reason: Shortness Of Breath Or Wheezing Amlodipine Besylate (Norvasc) 10 mg PO DAILY [facility] Last Admin: 10/03/19 09:52 Dose: 10 mg Documented by: Aspirin (Aspirin) 81 mg PO DAILY [facility] Last Admin: 10/03/19 09:52 Dose: 81 mg Documented by: Atorvastatin Calcium (Lipitor) 40 mg PO HS [facility] Last Admin: 10/02/19 20:21 Dose: 40 mg Documented by: Betamethasone/Clotrimazole (Lotrisone) 1 applic TOPICAL BID PRN PRN Reason: Skin Irritation Budesonide (Pulmicort) 1 mg INHALATION RT-BID [facility] Last Admin: 10/03/19 09:30 Dose: 1 mg Documented by: Carvedilol (Coreg) 6.25 mg PO BID-W/MEALS [facility] Last Admin: 10/03/19 06:30 Dose: 6.25 mg Documented by: Clopidogrel Bisulfate (Plavix) 75 mg PO DAILY [facility] Last Admin: 10/03/19 09:52 Dose: 75 mg Documented by: Ezetimibe (Zetia) 10 mg PO DAILY [facility] Last Admin: 10/03/19 09:52 Dose: 10 mg Documented by: Enoxaparin Sodium (Lovenox) 30 mg SQ HS [facility] Last Admin: 10/02/19 21:08 Dose: 30 mg Documented by: Formoterol Fumarate (Perforomist) 20 mcg INHALATION RT-BID [facility] Last Admin: 10/03/19 09:30 Dose: 20 mcg Documented by: Hydralazine HCl (Apresoline) 25 mg PO BID [facility] Last Admin: 10/03/19 09:52 Dose: 25 mg Documented by: Hydrocortisone (Hydrocortisone 1% Cream) 1 applic TOPICAL QID PRN PRN Reason: Rash Ceftriaxone Sodium 1 gm/ (Sodium Chloride) 50 mls @ 100 mls/hr IVPB Q24H [facility] Last Admin: 10/03/19 04:07 Dose: 100 mls/hr Documented by: Insulin Aspart (Novolog) 0 unit SQ AC-TID [facility]; Protocol Last Admin: 10/03/19 12:38 Dose: 4 unit Documented by: Insulin Detemir (Levemir) 16 unit SQ DAILY@0700 [facility] Last Admin: 10/03/19 07:35 Dose: 16 unit Documented by: Isosorbide Mononitrate (Imdur) 30 mg PO DAILY [facility] Last Admin: 10/03/19 09:52 Dose: 30 mg Documented by: Levothyroxine Sodium (Synthroid) 50 mcg PO Rios@0630 [facility] Levothyroxine Sodium (Synthroid) 100 mcg PO DAILY@0630 [facility] Last Admin: 10/03/19 06:30 Dose: 100 mcg Documented by: Lorazepam (Ativan) 0.5 mg PO BID PRN PRN Reason: Anxiety Melatonin (Melatonin) 3 mg PO HS PRN PRN Reason: Insomnia Metformin HCl (Glucophage) 500 mg PO BID-W/MEALS [facility] Last Admin: 10/03/19 06:30 Dose: 500 mg Documented by: Multivitamins (Theragran) 1 each PO DAILY [facility] Last Admin: 10/03/19 09:52 Dose: 1 each Documented by: Multivitamins/Minerals (Ivite) 1 each PO DAILY [facility] Last Admin: 10/03/19 09:52 Dose: 1 each Documented by: Nitroglycerin (Nitrostat) 0.4 mg SUBLINGUAL Q5M PRN PRN Reason: Chest Pain Pantoprazole Sodium (Protonix) 40 mg PO AC-BRKFST [facility] Last Admin: 10/03/19 06:30 Dose: 40 mg Documented by: Prednisone () 40 mg PO DAILY [facility] Senna (Senokot) 8.6 mg PO BID [facility] Last Admin: 10/03/19 09:52 Dose: 8.6 mg Documented by: Physical examination: VITAL SIGNS: 98.1, 89, 22, 107/56, 91% on 6 L GENERAL: BMI 35.8, sitting up in a chair, which showed a breath EYES: Pupils equal. Conjunctiva normal. HEENT: External appearance of nose and ears normal, oral cavity grossly normal. NECK: JVD unable to assess masses not palpable. 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 PSYCH: Alert and oriented x3; mood and affect normal. MUSCULAR skeletal: Evidence of OA Investigations: Potassium 5.4 Titi M.D. creatinine 1.40 Accu-Cheks 311, 249 Previous testing White count 43.4 hemoglobin 10.6 platelets 113 potassium 6.4 bun 65 creatinine 1.6 to Blood glucose 315, proBNP 4080 EKG tracing personally reviewed by me-shows abnormal T-wave in anterior leads, sinus rhythm Chest x-ray film personally reviewed by me-underexposed film, prominent interstitium, questionable infiltrate Previous testing: Patient is bun is 31 creatine 0.93 on August 01 2-D echocardiogram from May 2019 shows moderate concentric LVH and EF of 55- 60%, moderate to severe tricuspid regurgitation, severe pulmonary hypertension Assessment: - Acute COPD exacerbation in an ex-smoker, POA-slow to respond -Chronic congestive heart failure exacerbation from diastolic dysfunction EF 55- 60% from underlying coronary artery disease, POA -Acute on chronic hypoxic respiratory failure, POA-slow to respond -Moderate to severe tricuspid regurgitation, nontraumatic -Secondary severe pulmonary hypertension -Essential hypertension -Diabetes mellitus type II, uncontrolled with hyperglycemia -Hyperlipidemia -Hypothyroid -CLL -Chronic macular degeneration -Coronary artery disease with prior history of stent -Obesity BMI 32.6 -Chronic gait dysfunction uses a cane -Acute kidney injury, prerenal from patient being on diuretics patient's creatinine was 0.9 end of July -Hyperkalemia secondary to acute kidney injury -Highly doubt pneumonia-patient barely has cough. No sputum production. No fever. Plan: -Up another dose of canes due to be given. The patient reason for holding back on Lasix. IV fluids was discontinued by Dr. Shoemaker. Encourage oral intake. Repeat labs in the morning.
[2019-10-03 16:52] LABS: Glucose,Whole Blood 366 mg/dL (75-99)
[2019-10-03 17:47] LABS: Hemoglobin A1C 8.2 % (4.0-6.0)
[2019-10-03 20:52] LABS: Glucose,Whole Blood 237 mg/dL (75-99)
[2019-10-03] MEDS: ENOXAPARIN 30 MG/0.3 ML SYRINGE SQ SCH (20:55)
[2019-10-03] MEDS: ATORVASTATIN 40 MG TAB PO SCH (20:55)
[2019-10-04] MEDS: LEVOTHYROXINE 100 MCG TAB PO SCH (06:23)
[2019-10-04] MEDS: carvediloL 6.25 MG TAB PO SCH ×2 (06:23→15:47)
[2019-10-04] MEDS: metFORMIN 500 MG TAB PO SCH (06:23)
[2019-10-04] MEDS: PANTOPRAZOLE 40 MG TABLET PO SCH (06:23)
[2019-10-04 07:11] LABS: Glucose,Whole Blood 145 mg/dL (75-99)
[2019-10-04] MEDS: INSULIN DETEMIR (LEVEMIR) 100 UNIT/ML SYR SQ SCH (07:36)
[2019-10-04] MEDS: ASPIRIN 81 MG PO SCH (07:36)
[2019-10-04] MEDS: EZETIMIBE 10 MG TAB PO SCH (07:36)
[2019-10-04] MEDS: INSULIN ASPART (NovoLOG) 100 UNIT/ML VIAL SQ SCH ×3 (07:36→17:47)
[2019-10-04] MEDS: ISOSORBIDE MONONITRATE ER 30 MG TAB.ER.24H PO SCH (07:37)
[2019-10-04] MEDS: MULTIVITAMINS, THERA 1 EACH TAB PO SCH (07:37)
[2019-10-04] MEDS: SENNOSIDES 8.6 MG TAB PO SCH ×2 (07:37→21:50)
[2019-10-04] MEDS: hydrALAZINE HCL 25 MG TAB PO SCH ×2 (07:37→21:50)
[2019-10-04] MEDS: predniSONE 20 MG TAB PO SCH (07:37)
[2019-10-04] MEDS: VIT A,C & E-LUTEIN-MINERALS 1 EACH TAB PO SCH (07:37)
[2019-10-04] MEDS: amLODIPine 10 MG TAB PO SCH (07:37)
[2019-10-04] MEDS: CLOPIDOGREL 75 MG TAB PO SCH (07:37)
[2019-10-04 08:15] LABS: Calcium 8.4 mg/dL (8.4-10.2); Potassium 4.1 mmol/L (3.5-5.1)
[2019-10-04] MEDS: FORMOTEROL FUMARATE 20 MCG/2 ML NEBU INHALATION SCH ×2 (09:13→21:20)
[2019-10-04] MEDS: BUDESONIDE 1 MG/2 ML NEBU INHALATION SCH ×2 (09:14→21:20)
[2019-10-04] MEDS: IPRATROPIUM-ALBUTEROL 3 ML NEB INHALATION SCH ×4 (09:14→21:20)
[2019-10-04] MEDS ORDERED: FUROSEMIDE 10 MG/ML 4 ML VIAL IV ONE (11:42)
[2019-10-04] MEDS ORDERED: ESCITALOPRAM 10 MG TAB PO SCH (12:45)
[2019-10-04] MEDS ORDERED: SODIUM CHLORIDE 0.9% 1,000 ML IV SCH (13:00)
[2019-10-04 13:20] LABS: Glucose,Whole Blood 420 mg/dL (75-99)
--- NOTE | 2019-10-04 13:30 | P.PN ---
Subjective Progress Note Date: 10/04/19 Principal diagnosis: Shortness of breath On 10/03/2019 patient seen in follow-up on selective care unit, she is sitting up in the chair, appears to be in no acute distress, lung sounds reveal no wheezing, there are some bibasilar crackles. Patient is on 6 L of oxygen the pulse ox of 91%, hemodynamically she stable, no comparative chest pain, no significant cough or phlegm production, she's been afebrile, she does get short of breath with exertion, patient is upset that her Lasix was discontinued, and patient thinks that her lower extremity edema has gotten much worse, there is 1+ lower extremity edema. Patient appears to be in no acute distress, she claims that sees a little bit more labored in terms of her breathing. Today's labs have been reviewed, renal profile slightly improved, with creatinine down to 1.4, there is has been no nausea vomiting or diarrhea, potassium is 5.4. On 10/04/2019 patient seen in follow-up on selective care unit. She is awake and alert, in no acute distress, however her FiO2 is up to 6 L, and apparently last night he was up to 8 L related to patient's shortness of breath. Normally patient wears 4 L of oxygen at home. He sitting up in the recliner, breathing appears to be comfortable, she is complaining of increased swelling in her lower extremities her Lasix remains on hold, today's labs revealed worsening of the renal profile, with the BUN of 76 and creatinine of 1.65. Patient's daughter is at the bedside, and she is concerned that patient may need a small dose of diuretics in view of her history of heart failure. We'll defer to the primary care service for that decision, in the meanwhile patient's breathing does not seem to be distressed, lung sounds reveal some inspiratory crackles at bilateral bases, no rhonchi, no wheezing, patient is tolerating oral diet, no nausea vomiting or diarrhea. Objective - Vital Signs Vital signs: Vital Signs Temp 98.1 F 10/04/19 08:00 Pulse 84 10/04/19 12:24 Resp 18 10/04/19 08:00 BP 132/60 10/04/19 08:00 Pulse Ox 94 L 10/04/19 08:00 Intake & Output 07/10/04/19 10/04/19 18:59 06:59 18:59 Intake Total 270 240 Output Total 400 Balance -130 240 Intake: Oral 270 240 Output: Urine 400 Other: Voiding Method Toilet # Voids 0 1 - Exam GENERAL EXAM: Alert, very pleasant, 79-year-old white female, sitting up in the recliner, on 6 L of oxygen per pulse ox of 96% comfortable in no apparent dis tress. HEAD: Normocephalic/atraumatic. EYES: Normal reaction of pupils, equal size. Conjunctiva pink, sclera white. NOSE: Clear with pink turbinates. THROAT: No erythema or exudates. NECK: No masses, no JVD, no thyroid enlargement, no adenopathy. CHEST: No chest wall deformity. Symmetrical expansion. LUNGS: Equal air entry with basilar crackles CVS: Regular rate and rhythm, normal S1 and S2, no gallops, no murmurs, no rubs ABDOMEN: Soft, nontender. No hepatosplenomegaly, normal bowel sounds, no guarding or rigidity. EXTREMITIES: No clubbing, no cyanosis, 2+ pulses and upper and lower extr emities. 1+ pitting edema in lower extremities MUSCULOSKELETAL: Muscle strength and tone normal. SPINE: No scoliosis or deformity SKIN: No rashes CENTRAL NERVOUS SYSTEM: Alert and oriented -3. No focal deficits, tone is normal in all 4 extremities. PSYCHIATRIC: Alert and oriented -3. Appropriate affect. Intact judgment and insight. - Labs CBC & Chem 7: 10/02/19 02:10 10/04/19 07:12 Labs: Abnormal Lab Results - Last 24 Hours (Table) 10/02/19 10/03/19 10/03/19 Range/Units 02:10 16:49 20:50 Carbon Dioxide (22-30) mmol/L BUN (7-17) mg/dL Creatinine (0.52-1.04) mg/dL Glucose (74-99) mg/dL POC Glucose (mg/dL) 366 H 237 H (75-99) mg/dL Hemoglobin A1c 8.2 H (4.0-6.0) % 10/04/19 10/04/19 10/04/19 Range/Units 07:09 07:12 13:19 Carbon Dioxide 34 H (22-30) mmol/L BUN 76 H (7-17) mg/dL Creatinine 1.65 H (0.52-1.04) mg/dL Glucose 132 H (74-99) mg/dL POC Glucose (mg/dL) 145 H 420 H (75-99) mg/dL Hemoglobin A1c (4.0-6.0) % Assessment and Plan Plan: Assessment: #1. Acute exacerbation of chronic obstructive pulmonary disease possibly comfortably by a mild nonbacterial noninfective tracheobronchitis #2. Right hypoxic respiratory failure related to chronic advanced COPD #3. Severe sleep apnea syndrome with YAYA score 51, intolerant of CPAP or BiPAP #4. Secondary pulmonary hypertension #5. Acute kidney injury, improving #6. History of CLL #7. Degenerative joint disease #8. Macular degeneration #9. Hypertension #10. History of hypogammaglobulinemia Plan: Continue oral steroids, diuretic therapy will be decided upon by the primary care service, no nausea vomiting diarrhea, no significant cough or congestion, she does not seem to be in any acute distress. Continue current medical treatment. Vital signs are stable. Wean FiO2 as tolerated to keep O2 sat at 92% or better. I performed a history & physical examination of the patient and discussed their management with my nurse practitioner, Laurel Valadez. I reviewed the nurse practitioner's note and agree with the documented findings and plan of care. Lung sounds are positive for mild bibasilar crackles at the bases of lung dyer. The findings and the impression was discussed with the patient. I attest to the documentation by the nurse practitioner. Time with Patient: Less than 30
[2019-10-04] MEDS ORDERED: polyethylene glycoL 3350 17 GM POWD.PACK PO STA (15:18)
--- NOTE | 2019-10-04 16:03 | CONS ---
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 The patient had slight cough without any sputum. Her appetite had been fair. Did not have any fever, chills, primarily was admitted with COPD exacerbation. Two days later I have been consulted for congestive heart failure. The patient has known chronic diastolic heart failure. She had an echocardiogram back in May that showed ejection fraction of 60% and patient had been on Lasix at home but on this admission she seems profoundly intravascularly volume depleted. Her BUN normally is around 30. She is currently a 76 and her creatinine which is around 1.2 is around 1.6. I have a feeling patient is intravascularly volume depleted and some of the BUN and creatinine rise could be related to steroids if she has used any. I am going to hold the Lasix at this time as she clinically appears dry. Does not have significant leg edema and her lungs are clear. PAST MEDICAL HISTORY: Significant for coronary artery disease, status post angioplasty, COPD, hypertension, diabetes. MEDICATIONS: At home include Januvia, prednisone, Glucophage, hydralazine, Coreg, Norvasc, losartan, Synthroid, Imdur, Ativan, Lasix, Plavix, Zetia, Pulmicort, Lipitor, aspirin, Brovana. ALLERGIES: There are no known drug allergies. FAMILY HISTORY: Negative for premature coronary artery disease. SOCIAL HISTORY: Negative for smoking, EtOH abuse, or drug abuse. REVIEW OF SYSTEMS: HEENT: Unremarkable. CARDIAC: As described above. RESPIRATORY: As described above. GI: Negative. GENITOURINARY: Negative. ALLERGY/IMMUNOLOGY: Negative. SKIN: Negative. MUSCULOSKELETAL: Significant for arthritis. PSYCHOSOCIAL: Negative. CONSTITUTIONAL: Negative. ONCOLOGICAL: Negative. CUSTOMER SERVICE SUPERVISOR: Negative. Rest of the system review is not relevant. PHYSICAL EXAM: Heart rate is 84 beats per minute. Blood pressure is 130/60, respiratory rate is 18. Chest exam reveals good air entry bilaterally. Heart exam reveals first and second heart sounds. No gallop. Abdomen is soft. Exam of extremities did not reveal any edema. Peripheral pulses are felt. LABS: Show that the potassium is 4.1, BUN is 76, creatinine is 1.6, hemoglobin is 10.6, platelet count is 113. ASSESSMENT: 1. Chronic diastolic heart failure. 2. Chronic obstructive pulmonary disease exacerbation. 3. Coronary artery disease, status post angioplasty. PLAN: I believe patient is intravascularly volume depleted. I am going to hold the Lasix at this time. We can resume it once the BUN and creatinine starts coming down. Some of the BUN elevation could be related to the steroids. She had an echocardiogram in May. I reviewed it. I encouraged the patient to find a pipeline maintenance supervisor locally. She lives in [place]. Her primary care physician is Dr. Dooley and I told the patient that there is a cardiology group from [facility] that comes to [place] and she should consider seeing them so that she can receive care locally without having to travel all the way to [place]. GAYLE / YON: [phone] /
[2019-10-04 17:40] LABS: Glucose,Whole Blood 216 mg/dL (75-99)
[2019-10-04 20:37] LABS: Glucose,Whole Blood 197 mg/dL (75-99)
[2019-10-04] MEDS: ENOXAPARIN 30 MG/0.3 ML SYRINGE SQ SCH (21:50)
[2019-10-04] MEDS: ATORVASTATIN 40 MG TAB PO SCH (21:50)
--- NOTE | 2019-10-04 23:03 | P.PN ---
Progress Note - Text Progress Note Date: 10/04/19 Chief Complaint: Short of breath History of presenting complaint: This is a very pleasant 79-year-old patient of Dr. Steph Dooley. Chronic stable medical conditions include hyperlipidemia, hypertension, obstructive sleep apnea does not use a CPAP machine, hypothyroid, CLL, macular degeneration, coronary artery disease with stent/2008. Home oxygen 4-5 L. . Patient now presents with progressive shortness of breath coming on for a few days. Some wheezing. Very slight cough no sputum. Appetite has been fair. No fever but chills. Tired. Slight edema. Admitted with COPD exacerbation. Follow up with Dr. Zaragoza from pulmonary. Admitted with acute COPD exacerbation and acute on chronic hypoxic respiratory failure. Started on bronchodilators steroids. Also found to have acute kidney injury. Creatinine was normal at 0.93, 8 weeks ago. Gentle hydration. Today-some edema. Possible fluid overload. IV Lasix ordered. Consultation to cardiology and nephrology ordered. Daughter the bedside. Patient is lipid depressed. Review of systems: Was done for constitutional, cardiovascular, GI, pulmonary. Psychiatry relevant finding as above Active Medications Albuterol/Ipratropium (Duoneb 0.5 Mg-3 Mg/3 Ml Soln) 3 ml INHALATION RT-QID [facility] Last Admin: 10/04/19 21:20 Dose: 3 ml Documented by: Albuterol/Ipratropium (Duoneb 0.5 Mg-3 Mg/3 Ml Soln) 3 ml INHALATION RT-Q2H PRN PRN Reason: Shortness Of Breath Or Wheezing Amlodipine Besylate (Norvasc) 10 mg PO DAILY [facility] Last Admin: 10/04/19 07:37 Dose: 10 mg Documented by: Aspirin (Aspirin) 81 mg PO DAILY [facility] Last Admin: 10/04/19 07:36 Dose: 81 mg Documented by: Atorvastatin Calcium (Lipitor) 40 mg PO HS [facility] Last Admin: 10/04/19 21:50 Dose: 40 mg Documented by: Betamethasone/Clotrimazole (Lotrisone) 1 applic TOPICAL BID PRN PRN Reason: Skin Irritation Budesonide (Pulmicort) 1 mg INHALATION RT-BID [facility] Last Admin: 10/04/19 21:20 Dose: 1 mg Documented by: Carvedilol (Coreg) 6.25 mg PO BID-W/MEALS [facility] Last Admin: 10/04/19 15:47 Dose: 6.25 mg Documented by: Clopidogrel Bisulfate (Plavix) 75 mg PO DAILY [facility] Last Admin: 10/04/19 07:37 Dose: 75 mg Documented by: Ezetimibe (Zetia) 10 mg PO DAILY [facility] Last Admin: 10/04/19 07:36 Dose: 10 mg Documented by: Enoxaparin Sodium (Lovenox) 30 mg SQ HS [facility] Last Admin: 10/04/19 21:50 Dose: 30 mg Documented by: Escitalopram Oxalate (Lexapro) 10 mg PO DAILY [facility] Formoterol Fumarate (Perforomist) 20 mcg INHALATION RT-BID [facility] Last Admin: 10/04/19 21:20 Dose: 20 mcg Documented by: Hydralazine HCl (Apresoline) 25 mg PO BID [facility] Last Admin: 10/04/19 21:50 Dose: 25 mg Documented by: Hydrocortisone (Hydrocortisone 1% Cream) 1 applic TOPICAL QID PRN PRN Reason: Rash Sodium Chloride (Saline 0.9%) 1,000 mls @ 75 mls/hr IV .[id number] [facility] Stop: 10/05/19 01:01 Last Admin: 10/04/19 13:27 Dose: 75 mls/hr Documented by: Insulin Aspart (Novolog) 0 unit SQ AC-TID [facility]; Protocol Last Admin: 10/04/19 17:47 Dose: 3 unit Documented by: Insulin Detemir (Levemir) 16 unit SQ DAILY@0700 [facility] Last Admin: 10/04/19 07:36 Dose: 16 unit Documented by: Isosorbide Mononitrate (Imdur) 30 mg PO DAILY [facility] Last Admin: 10/04/19 07:37 Dose: 30 mg Documented by: Levothyroxine Sodium (Synthroid) 50 mcg PO Rios@0630 [facility] Levothyroxine Sodium (Synthroid) 100 mcg PO DAILY@0630 [facility] Last Admin: 10/04/19 06:23 Dose: 100 mcg Documented by: Lorazepam (Ativan) 0.5 mg PO BID PRN PRN Reason: Anxiety Melatonin (Melatonin) 3 mg PO HS PRN PRN Reason: Insomnia Metformin HCl (Glucophage) 1,000 mg PO BID-W/MEALS [facility] Last Admin: 10/04/19 06:23 Dose: 1,000 mg Documented by: Multivitamins (Theragran) 1 each PO DAILY [facility] Last Admin: 10/04/19 07:37 Dose: 1 each Documented by: Multivitamins/Minerals (Ivite) 1 each PO DAILY [facility] Last Admin: 10/04/19 07:37 Dose: 1 each Documented by: Nitroglycerin (Nitrostat) 0.4 mg SUBLINGUAL Q5M PRN PRN Reason: Chest Pain Pantoprazole Sodium (Protonix) 40 mg PO AC-BRKFST [facility] Last Admin: 10/04/19 06:23 Dose: 40 mg Documented by: Prednisone () 40 mg PO DAILY [facility] Last Admin: 10/04/19 07:37 Dose: 40 mg Documented by: Senna (Senokot) 8.6 mg PO BID [facility] Last Admin: 10/04/19 21:50 Dose: 8.6 mg Documented by: Physical examination: VITAL SIGNS: 98.1, 84, 18, 132/60, 94% on 6 L GENERAL: BMI 35.8, sitting up in a chair, some shortness of breath EYES: Pupils equal. Conjunctiva normal. HEENT: External appearance of nose and ears normal, oral cavity grossly normal. NECK: JVD unable to assess masses not palpable. HEART: First and second heart sounds are normal; mild edema present LUNGS:[ Respiratory rate increased, decreased breath sounds, some basilar crackles ABDOMEN: Soft, nontender, liver spleen not palpable, no masses palpable. PSYCH: Alert and oriented x3; mood and affect appears low. MUSCULAR skeletal: Evidence of OA Investigations: Potassium 4.1 bun 76 creatinine 1.65 Previous testing White count 43.4 hemoglobin 10.6 platelets 113 potassium 6.4 bun 65 creatinine 1.6 to Blood glucose 315, proBNP 4080 EKG tracing personally reviewed by me-shows abnormal T-wave in anterior leads, sinus rhythm Chest x-ray film personally reviewed by me-underexposed film, prominent interstitium, questionable infiltrate Previous testing: Patient is bun is 31 creatine 0.93 on August 01 2-D echocardiogram from May 2019 shows moderate concentric LVH and EF of 55- 60%, moderate to severe tricuspid regurgitation, severe pulmonary hypertension Assessment: - Acute COPD exacerbation in an ex-smoker, POA-slow to respond -Possible acute on Chronic congestive heart failure exacerbation from diastolic dysfunction EF 55-60% from underlying coronary artery disease, POA -Acute on chronic hypoxic respiratory failure, POA-slow to respond -Moderate to severe tricuspid regurgitation, nontraumatic -Secondary severe pulmonary hypertension -Essential hypertension -Diabetes mellitus type II, uncontrolled with hyperglycemia -Hyperlipidemia -Hypothyroid -CLL -Chronic macular degeneration -Coronary artery disease with prior history of stent -Obesity BMI 32.6 -Chronic gait dysfunction uses a cane -Acute kidney injury, prerenal from patient being on diuretics patient's creatinine was 0.9 end of July -Hyperkalemia secondary to acute kidney injury -Highly doubt pneumonia-patient barely has cough. No sputum production. No fever. -Depression not otherwise specified Plan: 1 dose of IV Lasix ordered. Consultation made to cardiology and nephrology. Also start the patient on Lexapro 10 mg a day. Care was discussed at length with the patient out of the bedside.Is guarded.
[2019-10-04] MEDS: LORazepam 0.5 MG TAB PO PRN (23:19)
[2019-10-05 06:27] LABS: Albumin 3.3 g/dL (3.5-5.0); Calcium 8.4 mg/dL (8.4-10.2); Potassium 3.8 mmol/L (3.5-5.1); Total Bilirubin 0.4 mg/dL (0.2-1.3); Total Protein 5.1 g/dL (6.3-8.2)
[2019-10-05] MEDS: carvediloL 6.25 MG TAB PO SCH ×2 (06:58→17:30)
[2019-10-05] MEDS: LEVOTHYROXINE 100 MCG TAB PO SCH (06:58)
[2019-10-05] MEDS: PANTOPRAZOLE 40 MG TABLET PO SCH (06:59)
[2019-10-05] MEDS: INSULIN ASPART (NovoLOG) 100 UNIT/ML VIAL SQ SCH ×4 (07:04→21:12)
[2019-10-05 07:05] LABS: Glucose,Whole Blood 148 mg/dL (75-99)
[2019-10-05] MEDS: INSULIN DETEMIR (LEVEMIR) 100 UNIT/ML SYR SQ SCH (07:11)
[2019-10-05] MEDS: BUDESONIDE 1 MG/2 ML NEBU INHALATION SCH ×2 (08:11→19:55)
[2019-10-05] MEDS: IPRATROPIUM-ALBUTEROL 3 ML NEB INHALATION SCH ×4 (08:11→19:55)
[2019-10-05] MEDS: FORMOTEROL FUMARATE 20 MCG/2 ML NEBU INHALATION SCH ×2 (08:11→19:55)
[2019-10-05] MEDS: ASPIRIN 81 MG PO SCH (09:30)
[2019-10-05] MEDS: SENNOSIDES 8.6 MG TAB PO SCH ×2 (09:30→21:13)
[2019-10-05] MEDS: ISOSORBIDE MONONITRATE ER 30 MG TAB.ER.24H PO SCH (09:30)
[2019-10-05] MEDS: amLODIPine 10 MG TAB PO SCH (09:30)
[2019-10-05] MEDS: hydrALAZINE HCL 25 MG TAB PO SCH ×2 (09:30→21:13)
[2019-10-05] MEDS: predniSONE 20 MG TAB PO SCH (09:30)
[2019-10-05] MEDS: EZETIMIBE 10 MG TAB PO SCH (09:31)
[2019-10-05] MEDS: CLOPIDOGREL 75 MG TAB PO SCH (09:31)
[2019-10-05] MEDS: MULTIVITAMINS, THERA 1 EACH TAB PO SCH (09:31)
[2019-10-05] MEDS: ESCITALOPRAM 10 MG TAB PO SCH (09:31)
[2019-10-05] MEDS: VIT A,C & E-LUTEIN-MINERALS 1 EACH TAB PO SCH (09:31)
--- NOTE | 2019-10-05 10:10 | XR ---
EXAMINATION TYPE: XR hand complete LT , 3 VIEWS DATE OF EXAM ORDERED: 10/05/2019 HISTORY: fall/trauma. COMPARISON: None. FINDINGS: The bones are osteopenic likely on the basis of osteoporosis. There are degenerative lynn es at the base of the thumb as well as in the triscaphe joint. There is evidence of a cholecystitis t ype fracture there is evidence of a Colles' type fracture of the distal radius and ulna with approxim ately 30 degrees of posterior angulation but without significant displacement. IMPRESSION: 1. COLLES' TYPE FRACTURE OF THE DISTAL RADIUS AND ULNA. 2. DEGENERATIVE CHANGE PARTICULARLY AT THE BASE OF THE THUMB. CODE A: INITIAL ENCOUNTER FOR CLOSED FRACTURE.
--- NOTE | 2019-10-05 10:12 | XR ---
EXAMINATION TYPE: XR lumbar spine 2 or 3V , 3 VIEWS DATE OF EXAM ORDERED: 10/05/2019 HISTORY: fall/trauma. COMPARISON: None. FINDINGS: The bones are extremely osteopenic likely on the basis of osteoporosis. There are coarse calcifications within the pelvis likely representing calcified from uterine fibroids . There is a dextroscoliosis. Vertebral body height and alignment appear maintained. No fracture is seen. There is no spondylolysis or spondylolisthesis. There is an infrarenal abdominal aortic aneurysm which measures 4.3 cm on this study not allowing for magnification. IMPRESSION: 1. NO ACUTE OSSEOUS LESION. 2. DIFFUSE OSTEOPENIA. 3. CALCIFIED UTERINE FIBROIDS. 4. ABDOMINAL AORTIC ANEURYSM.
--- NOTE | 2019-10-05 10:22 | P.NPCON ---
History of Present Illness - Reason for Consult Consult date: 10/05/19 acute renal failure - Chief Complaint Acute kidney injury and congestive heart failure - History of Present Illness This is a 79-year-old female, admitted with shortness of breath and wheezing and congestive heart failure she is being seen in consultation because of acute kidney injury. She came in on 10/03/2019 day before yesterday, with a creatinine off 1.4 went up to 1.65 yesterday. He was diuresed and her creatinine went down to 1.12 this morning. She has had in the past several creatinines since 2014. On 09/06/2019 a month ago creatinine was 1.5, and on 08/04/2019 was 1.22. On 08/02/2027 was 0.93. In the past and echocardiogram on 05/10/2019 showed ejection fraction of 60%, and multiple mild to moderate valvular disease but severe pulmonary hypertension regimen to pressure was measured at 62 mm. She is known with coronary artery disease stenting 2017, obstructive sleep apnea on CPAP machine, chronic edema being managed with changes in her Lasix doses frequently., At the time of admission she was on 40 twice a day of Lasix. She was gently hydrated and Lasix was on hold until resumption last night and subsequent improvement Past Medical History Past Medical History: Cancer, Heart Failure, COPD, Hyperlipidemia, Hypertension, Sleep Apnea/CPAP/BIPAP, Thyroid Disorder Additional Past Medical History / Comment(s): CLL. sleep apnea. macular degeneration. Skin ca History of Any Multi-Drug Resistant Organisms: None Reported Past Surgical History: Heart Catheterization With Stent, Tonsillectomy Additional Past Surgical History / Comment(s): d & c Past Anesthesia/Blood Transfusion Reactions: No Reported Reaction Date of Last Stent Placement:: 2007 Past Psychological History: No Psychological Hx Reported Smoking Status: Former smoker Past Alcohol Use History: Daily Past Drug Use History: None Reported - Past Family History Mother Family Medical History: Congestive Heart Failure (CHF) Father Family Medical History: No Reported History Additional Family Medical History / Comment(s): "Alcohol problems" Chirrosis Medications and Allergies Home Medications Medication Instructions Recorded Confirmed Type Arformoterol Tartrate [Brovana] 15 mcg INHALATION RT-BID 10/03/16 10/02/19 History Aspirin EC [Ecotrin Low Dose] 81 mg PO DAILY 10/03/16 10/02/19 History Clotrimazole/Betamethasone Dip 1 applic TOPICAL BID PRN 10/03/16 10/02/19 History [Lotrisone Cream] Fluticasone Nasal [place] [Flonase 1 spray EA NOSTRIL DAILY 10/03/16 10/02/19 History Nasal [place]] Furosemide [Lasix] 40 mg PO BID 10/03/16 10/02/19 History LORazepam [Ativan] 0.5 mg PO BID PRN 10/03/16 10/02/19 History Levothyroxine Sodium [Synthroid] 100 mcg PO DAILY 10/03/16 10/02/19 History Losartan Potassium [Cozaar] 50 mg PO DAILY 10/03/16 10/02/19 History Multivitamins, Thera [Multivitamin 1 tab PO DAILY 10/03/16 10/02/19 History (formulary)] Nitroglycerin Sl Tabs [Nitrostat] 0.4 mg SUBLINGUAL Q5M PRN 10/03/16 10/02/19 History Omeprazole [PriLOSEC] 20 mg PO DAILY 10/03/16 10/02/19 History Sennosides [Senna] 8.6 mg PO BID 10/03/16 10/02/19 History Vit C/E/Zn/Coppr/Lutein/Zeaxan 2 cap PO DAILY 10/03/16 10/02/19 History [Preservision Areds 2 Softgel] amLODIPine [Norvasc] 10 mg PO DAILY 10/03/16 10/02/19 History hydrALAZINE HCL 25 mg PO BID 10/03/16 10/02/19 History Atorvastatin [Lipitor] 40 mg PO HS 05/09/19 10/02/19 History Budesonide [Pulmicort] 0.5 mg INHALATION RT-BID 05/09/19 10/02/19 History Ezetimibe [Zetia] 10 mg PO DAILY 05/09/19 10/02/19 History Hydrocortisone Cream 1 applic TOPICAL QID PRN 05/09/19 10/02/19 History [Hydrocortisone 2.5% Cream] Levothyroxine Sodium [Synthroid] 50 mcg PO PADILLA 05/09/19 10/02/19 History Yupelri 175mcg/3ml 175 mcg INHALATION RT-DAILY 05/09/19 10/02/19 History carvediloL [Coreg] 6.25 mg PO BID 05/09/19 10/02/19 History Clopidogrel [Plavix] 75 mg PO DAILY #30 tab 05/11/19 10/02/19 Rx Isosorbide Mononitrate ER [Imdur] 30 mg PO DAILY #30 tab.er.24h 05/11/19 10/02/19 Rx Potassium Chloride ER [K-Dur 20] 20 meq PO DAILY 08/03/19 10/02/19 History Melatonin 3 mg PO HS PRN tablet 08/04/19 10/02/19 Rx Albuterol Inhaler [Ventolin Hfa 2 puff INHALATION RT-QID PRN 10/02/19 10/02/19 History Inhaler] Promethaz-Cod 6.25-10 mg/5 ml 5 ml PO Q6HR PRN 10/02/19 10/02/19 History [Phenergan with Codeine] metFORMIN HCL [Glucophage] 500 mg PO BID-W/MEALS 10/02/19 10/02/19 History predniSONE See Taper PO DAILY 10/02/19 10/02/19 History sitaGLIPtin PHOSPHATE [Januvia] 100 mg PO DAILY 10/02/19 10/02/19 History Allergies Allergy/AdvReac Type Severity Reaction Status Date / Time No Known Allergies Allergy Verified 10/02/19 07:43 Physical Exam Vitals: Vital Signs Temp Pulse Pulse Resp BP Pulse Ox 10/05/19 08:39 96 10/05/19 08:23 92 10/05/19 08:22 92 10/05/19 08:14 92 10/05/19 04:00 90 16 137/62 88 L 10/05/19 00:00 89 16 120/66 90 L 10/04/19 21:46 88 10/04/19 21:28 96 10/04/19 21:27 96 10/04/19 21:20 96 10/04/19 20:00 98.2 F 82 16 129/67 90 L 10/04/19 17:03 92 10/04/19 16:51 92 10/04/19 16:00 98 16 130/63 93 L 10/04/19 12:24 84 10/04/19 12:12 88 10/04/19 12:00 88 20 117/67 88 L Intake and Output 10/04/19 10/05/19 10/05/19 22:59 06:59 14:59 Intake Total 236 118 Output Total 300 Balance -64 118 Intake: Oral 236 118 Output: Urine 300 Other: Voiding Method Toilet # Voids 2 1 # Bowel Movements 2 Weight 93.2 kg Currently on exam she is awake alert oriented somewhat concerned HEENT exam JVP is elevated about 7-8 cigarettes was sternal angle neck is supple no facial asymmetry Lungs are clear to auscultation fairly good air entry bilaterally but the x-rays consistent with congestive heart failure Heart sounds are unremarkable no murmur rub gallop or abdomen is somewhat protuberant and difficult to examine but nontender Extremity exam was 2+ edema Neurologically awake alert oriented with generalized weakness Results - Lab Results Most recent lab results Calcium 8.4 mg/dL (8.4-10.2) 10/05/19 06:00 Magnesium 1.9 mg/dL (1.6-2.3) 10/02/19 02:10 10/02/19 02:10 10/05/19 06:00 Assessment and Plan Assessment: Impression 1. Acute kidney injury secondary to congestive heart failure improved with diuresis 2. Chronic kidney disease stage III nephrosclerosis GFR is in the 42-59 range. UA is negative for protein not quantified 3. Mild hyperkalemia at the time of admission potassium is 5.4 secondary to acute kidney injury and slightly high blood sugar at 313 at the time improved potassium is 3.8 this morning 4. Hypertension, blood pressure is at target 5. Mild degree of metabolic alkalosis bicarb is 34 secondary to diuresis 6. Anemia hemoglobin is 10.6 secondary to CK D Recommendation 1. Maintain diuretics with torsemide 40 mg a day as on Lasix 40 twice a day she continued to have significant edema and congestive heart failure 2. Monitor I's and O's, daily weight and blood pressures at home and just diuretic doses as necessary 3. Watch metabolic alkalosis as it might get worse. Thank you for this consultation and continue to follow
--- NOTE | 2019-10-05 11:56 | PN ---
PROGRESS NOTE CRITICAL CARE PROGRESS NOTE: DATE OF SERVICE: October 05, 2019 This is a 79-year-old female that we saw in consultation initially for COPD exacerbation, complicated by mild tracheobronchitis. The patient also was having issues with lower extremity edema. She has advanced COPD. She also has a history of very severe sleep apnea syndrome, maintained on CPAP/BiPAP. Yesterday when we saw her, her daughter was in the room with her. Her issues at that time were the fact that her lower extremities were swollen. Apparently her primary care physician took away her Lasix. She does have a history of secondary pulmonary hypertension, acute kidney injury, CLL, DJD, macular degeneration, hypertension, and hypogammaglobulinemia. Currently, the patient is resting comfortably. She is in no distress. PHYSICAL EXAMINATION: VITAL SIGNS: Current vital signs are reviewed. Temperature is 98.2. Heart rate is 88, respiratory rate 18, blood pressure 137/62 mean is 87. 6 L saturation is 92%. She is normally on 4 L at home. GENERAL: Appears in no acute distress. Respiratory status appears stable. She is sitting in a chair. HEENT: Examination is grossly unremarkable. Nasal O2 noted. NECK: Supple. Full range of motion. No adenopathy. Neck veins are flat. CARDIOVASCULAR: Examination reveals regular rhythm and rate. Heart rate mid 80s. S1, S2 normal. Heart sounds are distant. LUNGS: A few scattered rhonchi. No wheezes or crackles. Breath sounds equal but diminished throughout. ABDOMEN: Obese. Bowel sounds are heard. EXTREMITIES: Reveal 1 to 2+ pitting edema. They are slightly improved. SKIN is without rash. NEUROLOGIC: Examination is brief but nonfocal. LABS: Reviewed. Sodium 143, potassium 3.8, chloride 104. CO2 34. Anion gap is 5. BUN and creatinine were 61 and 1.12. This was compared to 76 and 1.65 yesterday. Microbiology is all negative. We sent the patient for hand x-ray. The x-ray does show a Colles type fracture of the distal radius and ulna. In addition, the x-rays of the lumbosacral spine show no acute osseous lesions, but diffuse osteopenia. Current medications are reviewed. They all appear to be appropriate. They are medications that we would typically use for somebody with COPD exacerbation. ASSESSMENT: 1. Acute hypoxemic respiratory failure secondary to chronic obstructive pulmonary disease exacerbation, somewhat improved. 2. Advanced chronic obstructive pulmonary disease. 3. Severe sleep apnea syndrome, currently intolerant of CPAP/BiPAP. 4. Secondary pulmonary hypertension with cor pulmonale. 5. Acute kidney injury, improved. 6. History of CLL. 7. Degenerative joint disease. 8. Macular degeneration. 9. Hypertension. 10.History of hypogammaglobulinemia. Plan Currently, the patient is on short-acting beta agonist, short-acting muscarinic antagonist, long-acting beta agonist, inhaled corticosteroids, and systemic corticosteroids. They all appear to be improving her underlying COPD. She is down to 6 L nasal cannula. Her home dose is 4 L. In addition, she has secondary pulmonary hypertension with cor pulmonale with lower extremity edema. Nephrology has been consulted. The x-rays of her hand do back show a distal fracture of the wrist. Orthopedics will be consulted. MMROLYL / TORRIEN: [id number] / MTDD
--- NOTE | 2019-10-05 12:15 | P.PN ---
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 He presented to the hospital with shortness of breath progressing over the last few days prior to admission. Patient's Lasix was put on hold yesterday secondary to elevated BUN and creatinine as well as patient appearing clinically dry. Overall today patient is feeling fairly well. No change since yesterday. Has mild lower extremity edema. Her breathing is stable. Labs today showed an improvement in her renal function with a BUN of 61 and creatinine 1.12. Objective - Vital Signs Vital signs: Vital Signs Temp 97.8 F 10/05/19 08:00 Pulse 92 10/05/19 11:49 Resp 20 10/05/19 08:00 BP 136/68 10/05/19 08:00 Pulse Ox 92 L 10/05/19 08:00 Intake & Output 10/04/19 10/05/19 10/05/19 18:59 06:59 18:59 Intake Total 594 118 Output Total 300 Balance 294 118 Weight 93.2 kg Intake: Oral 594 118 Output: Urine 300 Other: Voiding Method Toilet # Voids 2 1 # Bowel Movements 2 - Exam PHYSICAL EXAMINATION: HEENT: Head is atraumatic, normocephalic. Pupils equal, round. Neck is supple. There is no elevated jugular venous pressure. HEART EXAMINATION: Heart sounds regular, S1 and S2 normal. No murmur or gallop heard. CHEST EXAMINATION: Lungs are clear to auscultation. No chest wall tenderness is noted on palpation or with deep breathing. ABDOMEN: Soft, obese, nontender. Bowel sounds are heard. No organomegaly noted. EXTREMITIES: 2+ peripheral pulses with evidence of trace to mild peripheral e chintan and no calf tenderness noted. NEUROLOGIC patient is awake, alert and oriented x3. . - Labs CBC & Chem 7: 10/02/19 02:10 10/05/19 06:00 Labs: Abnormal Lab Results - Last 24 Hours (Table) 10/04/19 10/04/19 10/04/19 Range/Units 13:19 17:38 20:35 Carbon Dioxide (22-30) mmol/L BUN (7-17) mg/dL Creatinine (0.52-1.04) mg/dL Glucose (74-99) mg/dL POC Glucose (mg/dL) 420 H 216 H 197 H (75-99) mg/dL Total Protein (6.3-8.2) g/dL Albumin (3.5-5.0) g/dL 10/05/19 10/05/19 Range/Units 06:00 07:04 Carbon Dioxide 34 H (22-30) mmol/L BUN 61 H (7-17) mg/dL Creatinine 1.12 H (0.52-1.04) mg/dL Glucose 144 H (74-99) mg/dL POC Glucose (mg/dL) 148 H (75-99) mg/dL Total Protein 5.1 L (6.3-8.2) g/dL Albumin 3.3 L (3.5-5.0) g/dL Assessment and Plan Assessment: #1 chronic diastolic heart failure #2 acute exacerbation COPD #3 CAD status post angioplasty and stenting Plan: From cardiology's perspective we will continue to hold diuretics. Continue to monitor renal function. We will continue to follow the patient referred further recommendations accordingly. The above dictated assessment and findings were discussed with signing physician. The impression and plan of care have been directed as dictated. Sanjana Cardoza, Nurse Practitioner, acting as scribe for signing physician.
[2019-10-05 12:33] LABS: Glucose,Whole Blood 285 mg/dL (75-99)
[2019-10-05] MEDS: TORSEMIDE 20 MG TAB PO SCH (12:57)
--- NOTE | 2019-10-05 14:43 | P.CNOR ---
History of Present Illness - HPI Consult reason: joint pain (Left Wrist Pain), fracture (Left Distal Radius fracture) History of present illness: Patient is very pleasant 79-year-old female who is seen and examined at bedside for further evaluation of her left wrist. Patient states she sustained a fall approximately 10-14 days ago falling on her left arm. She does experience some pain at the left wrist but did not seek further evaluation. She has continued to use her left wrist with activities but does have some pain while doing so. She has been recently admitted to the hospital on 10/02/2019 after presenting to the emergency department for persistent hypoxemia. She was admitted for acute COPD exacerbation. She had been experiencing progressive shortness of breath. She is being seen by pulmonology today and they did her wrist pain. X-ray imaging was taken of her left wrist which it showed evidence of a left distal radius fracture. Patient states she continues to use the left wrist but has been avoiding excessive activities with the left wrist. She currently has an IV intact in the left forearm. Patient's past medical history does include hyperlipidemia, hypertension, obstructive sleep apnea, hypothyroidism, CLL, and coronary artery disease. X-ray imaging of the patient's lumbar spine was also taken today, 10/05/2019 with evidence of some degenerative changes without evidence of fracture. Patient is not currently complaining of any pain in her lumbar spine at the bedside. Past Medical History Past Medical History: Cancer, Heart Failure, COPD, Hyperlipidemia, Hypertension, Sleep Apnea/CPAP/BIPAP, Thyroid Disorder Additional Past Medical History / Comment(s): CLL. sleep apnea. macular degeneration. Skin ca History of Any Multi-Drug Resistant Organisms: None Reported Past Surgical History: Heart Catheterization With Stent, Tonsillectomy Additional Past Surgical History / Comment(s): d & c Past Anesthesia/Blood Transfusion Reactions: No Reported Reaction Date of Last Stent Placement:: 2007 Past Psychological History: No Psychological Hx Reported Smoking Status: Former smoker Past Alcohol Use History: Daily Past Drug Use History: None Reported - Past Family History Mother Family Medical History: Congestive Heart Failure (CHF) Father Family Medical History: No Reported History Additional Family Medical History / Comment(s): "Alcohol problems" Chirrosis Medications and Allergies Home Medications Medication Instructions Recorded Confirmed Type Arformoterol Tartrate [Brovana] 15 mcg INHALATION RT-BID 10/03/16 10/02/19 History Aspirin EC [Ecotrin Low Dose] 81 mg PO DAILY 10/03/16 10/02/19 History Clotrimazole/Betamethasone Dip 1 applic TOPICAL BID PRN 10/03/16 10/02/19 History [Lotrisone Cream] Fluticasone Nasal [place] [Flonase 1 spray EA NOSTRIL DAILY 10/03/16 10/02/19 History Nasal [place]] Furosemide [Lasix] 40 mg PO BID 10/03/16 10/02/19 History LORazepam [Ativan] 0.5 mg PO BID PRN 10/03/16 10/02/19 History Levothyroxine Sodium [Synthroid] 100 mcg PO DAILY 10/03/16 10/02/19 History Losartan Potassium [Cozaar] 50 mg PO DAILY 10/03/16 10/02/19 History Multivitamins, Thera [Multivitamin 1 tab PO DAILY 10/03/16 10/02/19 History (formulary)] Nitroglycerin Sl Tabs [Nitrostat] 0.4 mg SUBLINGUAL Q5M PRN 10/03/16 10/02/19 History Omeprazole [PriLOSEC] 20 mg PO DAILY 10/03/16 10/02/19 History Sennosides [Senna] 8.6 mg PO BID 10/03/16 10/02/19 History Vit C/E/Zn/Coppr/Lutein/Zeaxan 2 cap PO DAILY 10/03/16 10/02/19 History [Preservision Areds 2 Softgel] amLODIPine [Norvasc] 10 mg PO DAILY 10/03/16 10/02/19 History hydrALAZINE HCL 25 mg PO BID 10/03/16 10/02/19 History Atorvastatin [Lipitor] 40 mg PO HS 05/09/19 10/02/19 History Budesonide [Pulmicort] 0.5 mg INHALATION RT-BID 05/09/19 10/02/19 History Ezetimibe [Zetia] 10 mg PO DAILY 05/09/19 10/02/19 History Hydrocortisone Cream 1 applic TOPICAL QID PRN 05/09/19 10/02/19 History [Hydrocortisone 2.5% Cream] Levothyroxine Sodium [Synthroid] 50 mcg PO PADILLA 05/09/19 10/02/19 History Yupelri 175mcg/3ml 175 mcg INHALATION RT-DAILY 05/09/19 10/02/19 History carvediloL [Coreg] 6.25 mg PO BID 05/09/19 10/02/19 History Clopidogrel [Plavix] 75 mg PO DAILY #30 tab 05/11/19 10/02/19 Rx Isosorbide Mononitrate ER [Imdur] 30 mg PO DAILY #30 tab.er.24h 05/11/19 10/02/19 Rx Potassium Chloride ER [K-Dur 20] 20 meq PO DAILY 08/03/19 10/02/19 History Melatonin 3 mg PO HS PRN tablet 08/04/19 10/02/19 Rx Albuterol Inhaler [Ventolin Hfa 2 puff INHALATION RT-QID PRN 10/02/19 10/02/19 History Inhaler] Promethaz-Cod 6.25-10 mg/5 ml 5 ml PO Q6HR PRN 10/02/19 10/02/19 History [Phenergan with Codeine] metFORMIN HCL [Glucophage] 500 mg PO BID-W/MEALS 10/02/19 10/02/19 History predniSONE See Taper PO DAILY 10/02/19 10/02/19 History sitaGLIPtin PHOSPHATE [Januvia] 100 mg PO DAILY 10/02/19 10/02/19 History Allergies Allergy/AdvReac Type Severity Reaction Status Date / Time No Known Allergies Allergy Verified 10/02/19 07:43 Physical Examination Physical Exam: Patient is awake, alert, and oriented 3 Vital signs stable Adequate chest excursion with deep inspiration and expiration Evidence of significant swelling at the left wrist, left hand, and in the fingers Evidence of bruising over the proximal phalanges of the left hand Pain with palpation over the left distal radius No pain with elbow flexion and extension on the left No pain with pronation and supination on the left Patient is able to wiggle all fingers left hand without difficulty Some increased pain at the left wrist with active range of motion IV intact in the left forearm Results Pertinent studies: X-rays of the left hand taken on 10/05/2019: Evidence of left distal radius fracture with approximately 30 of posterior angulation but without significant displacement X-rays of the lumbar spine taken on 10/05/2019: Degenerative scoliosis; degenerative disc disease throughout the lumbar spine; osteopenia; no evidence of vertebral body compression fracture; no evidence of spondylolisthesis; abdominal aortic aneurysm measuring 4.3 cm - Labs Labs: Abnormal Lab Results - Last 24 Hours (Table) 10/04/19 10/04/19 10/05/19 Range/Units 17:38 20:35 06:00 Carbon Dioxide 34 H (22-30) mmol/L BUN 61 H (7-17) mg/dL Creatinine 1.12 H (0.52-1.04) mg/dL Glucose 144 H (74-99) mg/dL POC Glucose (mg/dL) 216 H 197 H (75-99) mg/dL Total Protein 5.1 L (6.3-8.2) g/dL Albumin 3.3 L (3.5-5.0) g/dL 10/05/19 10/05/19 Range/Units 07:04 12:22 Carbon Dioxide (22-30) mmol/L BUN (7-17) mg/dL Creatinine (0.52-1.04) mg/dL Glucose (74-99) mg/dL POC Glucose (mg/dL) 148 H 285 H (75-99) mg/dL Total Protein (6.3-8.2) g/dL Albumin (3.5-5.0) g/dL H & H 10/02/19 Range/Units 02:10 Hgb 10.6 L (11.4-16.0) gm/dL Hct 34.2 (34.0-46.0) % Coagulation 10/02/19 Range/Units 02:10 INR 0.9 (<1.2) Result Diagrams: 10/02/19 02:10 10/05/19 06:00 Assessment and Plan Assessment: Assessment: Left distal radius fracture status post fall Left wrist pain Exacerbation of COPD Hyperlipidemia Hypertension Hypothyroidism Coronary artery disease Obstructive sleep apnea CLL (1) Distal radius fracture, left Current Visit: Yes Status: Acute Code(s): S52.502A - UNSP FRACTURE OF THE LOWER END OF LEFT RADIUS, INIT SNOMED Code(s): 011739823 (2) Left wrist pain Current Visit: Yes Status: Acute Code(s): M25.532 - PAIN IN LEFT WRIST SNOMED Code(s): 60619089 (3) Status post fall Current Visit: Yes Status: Acute Code(s): Z91.81 - HISTORY OF FALLING SNOMED Code(s): 128504401 (4) Hyperlipemia Current Visit: Yes Status: Acute Code(s): E78.5 - HYPERLIPIDEMIA, UNSPECIFIED SNOMED Code(s): 71056036 (5) Hypothyroid Current Visit: Yes Status: Acute Code(s): E03.9 - HYPOTHYROIDISM, UNSPECIFIED SNOMED Code(s): 70583824 (6) Coronary artery disease Current Visit: Yes Status: Acute Code(s): I25.10 - ATHSCL HEART DISEASE OF [place] CORONARY ARTERY W/O ANG PCTRS SNOMED Code(s): 83621317 (7) MADAY (obstructive sleep apnea) Current Visit: Yes Status: Acute Code(s): G47.33 - OBSTRUCTIVE SLEEP APNEA (ADULT) (PEDIATRIC) SNOMED Code(s): 64449748 (8) Acute exacerbation of chronic obstructive pulmonary disease Current Visit: Yes Status: Acute Code(s): J44.1 - CHRONIC OBSTRUCTIVE PULMONARY DISEASE W (ACUTE) EXACERBATION SNOMED Code(s): 572191440 (9) CLL (chronic lymphocytic leukemia) Current Visit: No Status: Acute Code(s): C91.10 - CHRONIC LYMPHOCYTIC LEUK OF B-CELL TYPE NOT ACHIEVE REMIS SNOMED Code(s): 62913134 Plan: Plan: 1. After reviewing of imaging and physical examination the patient, patient has evidence of a left distal radius fracture status post fall approximately 10-14 days ago. She continues to have pain at the left wrist with increased activities. She has pain with palpation over the left distal radius. Patient did not initially seek any treatment or evaluation for her left wrist and has continued to use it since that time but with some difficulty. We discussed at this time we will plan for casting of her left upper extremity. She currently has an IV intact in her left forearm. It was discussed with nursing that we will plan to have this IV moved to another location so we may apply a short arm cast for the left upper extremity. We discussed patient should be nonweightbearing with the left upper extremity until a short arm cast is able to be applied. Patient agrees with the application of a short arm cast due to her pain and evidence of fracture. 2. Patient will continue to be seeing exam by multiple other medical providers for her other medical diagnoses including medicine and pulmonology
[2019-10-05 17:23] LABS: Glucose,Whole Blood 282 mg/dL (75-99)
[2019-10-05] MEDS: metFORMIN 500 MG TAB PO SCH (17:30)
--- NOTE | 2019-10-05 18:20 | P.PN ---
Progress Note - Text Progress Note Date: 10/05/19 Chief Complaint: Short of breath History of presenting complaint: This is a very pleasant 79-year-old patient of Dr. Steph Dooley. Chronic stable medical conditions include hyperlipidemia, hypertension, obstructive sleep apnea does not use a CPAP machine, hypothyroid, CLL, macular degeneration, coronary artery disease with stent/2008. Home oxygen 4-5 L. . Patient now presents with progressive shortness of breath coming on for a few days. Some wheezing. Very slight cough no sputum. Appetite has been fair. No fever but chills. Tired. Slight edema. Admitted with COPD exacerbation. Follow up with Dr. Zaragoza from pulmonary. Admitted with acute COPD exacerbation and acute on chronic hypoxic respiratory failure. Started on bronchodilators steroids. Also found to have acute kidney injury. Creatinine was normal at 0.93, 8 weeks ago. Gentle hydration. Exacerbation of CHF exacerbation. Started on Lasix. Also felt depressed. Started on Lexapro. Today-feeling a bit better today. On Lasix. Eating better. A bit more cheerful. Sitting up in a chair. Review of systems: Was done for constitutional, cardiovascular, GI, pulmonary. Psychiatry relevant finding as above Active Medications Albuterol/Ipratropium (Duoneb 0.5 Mg-3 Mg/3 Ml Soln) 3 ml INHALATION RT-QID [facility] Last Admin: 10/05/19 15:51 Dose: 3 ml Documented by: Albuterol/Ipratropium (Duoneb 0.5 Mg-3 Mg/3 Ml Soln) 3 ml INHALATION RT-Q2H PRN PRN Reason: Shortness Of Breath Or Wheezing Amlodipine Besylate (Norvasc) 10 mg PO DAILY [facility] Last Admin: 10/05/19 09:30 Dose: 10 mg Documented by: Aspirin (Aspirin) 81 mg PO DAILY [facility] Last Admin: 10/05/19 09:30 Dose: 81 mg Documented by: Atorvastatin Calcium (Lipitor) 40 mg PO HS [facility] Last Admin: 10/04/19 21:50 Dose: 40 mg Documented by: Betamethasone/Clotrimazole (Lotrisone) 1 applic TOPICAL BID PRN PRN Reason: Skin Irritation Budesonide (Pulmicort) 1 mg INHALATION RT-BID [facility] Last Admin: 10/05/19 08:11 Dose: 1 mg Documented by: Carvedilol (Coreg) 6.25 mg PO BID-W/MEALS [facility] Last Admin: 10/05/19 17:30 Dose: 6.25 mg Documented by: Clopidogrel Bisulfate (Plavix) 75 mg PO DAILY [facility] Last Admin: 10/05/19 09:31 Dose: 75 mg Documented by: Ezetimibe (Zetia) 10 mg PO DAILY [facility] Last Admin: 10/05/19 09:31 Dose: 10 mg Documented by: Enoxaparin Sodium (Lovenox) 30 mg SQ HS [facility] Last Admin: 10/04/19 21:50 Dose: 30 mg Documented by: Escitalopram Oxalate (Lexapro) 10 mg PO DAILY [facility] Last Admin: 10/05/19 09:31 Dose: 10 mg Documented by: Formoterol Fumarate (Perforomist) 20 mcg INHALATION RT-BID [facility] Last Admin: 10/05/19 08:11 Dose: 20 mcg Documented by: Hydralazine HCl (Apresoline) 25 mg PO BID [facility] Last Admin: 10/05/19 09:30 Dose: 25 mg Documented by: Hydrocortisone (Hydrocortisone 1% Cream) 1 applic TOPICAL QID PRN PRN Reason: Rash Insulin Aspart (Novolog) 0 unit SQ AC-TID [facility]; Protocol Last Admin: 10/05/19 17:31 Dose: 4 unit Documented by: Insulin Detemir (Levemir) 16 unit SQ DAILY@0700 [facility] Last Admin: 10/05/19 07:11 Dose: 16 unit Documented by: Isosorbide Mononitrate (Imdur) 30 mg PO DAILY [facility] Last Admin: 10/05/19 09:30 Dose: 30 mg Documented by: Levothyroxine Sodium (Synthroid) 50 mcg PO Rios@0630 [facility] Levothyroxine Sodium (Synthroid) 100 mcg PO DAILY@0630 [facility] Last Admin: 10/05/19 06:58 Dose: 100 mcg Documented by: Lorazepam (Ativan) 0.5 mg PO BID PRN PRN Reason: Anxiety Last Admin: 10/04/19 23:19 Dose: 0.5 mg Documented by: Melatonin (Melatonin) 3 mg PO HS PRN PRN Reason: Insomnia Metformin HCl (Glucophage) 1,000 mg PO BID-W/MEALS [facility] Last Admin: 10/05/19 17:30 Dose: 1,000 mg Documented by: Multivitamins (Theragran) 1 each PO DAILY [facility] Last Admin: 10/05/19 09:31 Dose: 1 each Documented by: Multivitamins/Minerals (Ivite) 1 each PO DAILY [facility] Last Admin: 10/05/19 09:31 Dose: 1 each Documented by: Nitroglycerin (Nitrostat) 0.4 mg SUBLINGUAL Q5M PRN PRN Reason: Chest Pain Pantoprazole Sodium (Protonix) 40 mg PO AC-BRKFST [facility] Last Admin: 10/05/19 06:59 Dose: 40 mg Documented by: Prednisone () 40 mg PO DAILY [facility] Last Admin: 10/05/19 09:30 Dose: 40 mg Documented by: Senna (Senokot) 8.6 mg PO BID [facility] Last Admin: 10/05/19 09:30 Dose: 8.6 mg Documented by: Torsemide (Demadex) 40 mg PO DAILY [facility] Last Admin: 10/05/19 12:57 Dose: 40 mg Documented by: Physical examination: VITAL SIGNS: 97.8, 81, 20, 136/68, 92% on 6 L GENERAL: Sitting up in a chair, but tired EYES: Pupils equal. Conjunctiva normal. HEENT: External appearance of nose and ears normal, oral cavity grossly normal. NECK: JVD unable to assess masses not palpable. HEART: First and second heart sounds are normal; mild edema present LUNGS:[ Respiratory rate increased, decreased breath sounds, improved crackles ABDOMEN: Soft, nontender, liver spleen not palpable, no masses palpable. PSYCH: Alert and oriented x3; mood and affect appears low. MUSCULAR skeletal: Evidence of OA Investigations: Potassium 3.8 bun 61 creatinine 1.12 Previous testing White count 43.4 hemoglobin 10.6 platelets 113 potassium 6.4 bun 65 creatinine 1.6 to Blood glucose 315, proBNP 4080 EKG tracing personally reviewed by me-shows abnormal T-wave in anterior leads, sinus rhythm Chest x-ray film personally reviewed by me-underexposed film, prominent interstitium, questionable infiltrate Previous testing: Patient is bun is 31 creatine 0.93 on August 01 2-D echocardiogram from May 2019 shows moderate concentric LVH and EF of 55- 60%, moderate to severe tricuspid regurgitation, severe pulmonary hypertension Assessment: - Acute COPD exacerbation in an ex-smoker, POA-slow to respond -Possible acute on Chronic congestive heart failure exacerbation from diastolic dysfunction EF 55-60% from underlying coronary artery disease, POA -Acute on chronic hypoxic respiratory failure, POA-slow to respond -Moderate to severe tricuspid regurgitation, nontraumatic -Secondary severe pulmonary hypertension -Essential hypertension -Diabetes mellitus II, uncontrolled with hyperglycemia -Hyperlipidemia -Hypothyroid -CLL -Chronic macular degeneration -Coronary artery disease with prior history of stent -Obesity BMI 32.6 -Chronic gait dysfunction uses a cane -Acute kidney injury, congestive heart failure with hepatorenal syndrome improving with diuretics -Hyperkalemia secondary to acute kidney injury -Highly doubt pneumonia-patient barely has cough. No sputum production. No fever. -Depression not otherwise specified Plan: -Patient on oral prednisone. Demadex 40 mg daily started today. Off IV Lasix. She is a bit better. Her prognosis is guarded.
[2019-10-05 20:51] LABS: Glucose,Whole Blood 248 mg/dL (75-99)
[2019-10-05] MEDS: ATORVASTATIN 40 MG TAB PO SCH (21:13)
[2019-10-05] MEDS: ENOXAPARIN 30 MG/0.3 ML SYRINGE SQ SCH (21:13)
[2019-10-05] MEDS: LORazepam 0.5 MG TAB PO PRN (23:00)
[2019-10-06 06:20] LABS: Glucose,Whole Blood 158 mg/dL (75-99)
[2019-10-06] MEDS ORDERED: LEVOTHYROXINE 50 MCG TAB PO SCH (06:30)
[2019-10-06] MEDS: PANTOPRAZOLE 40 MG TABLET PO SCH (06:31)
[2019-10-06] MEDS: carvediloL 6.25 MG TAB PO SCH (06:31)
[2019-10-06] MEDS: LEVOTHYROXINE 100 MCG TAB PO SCH (06:31)
[2019-10-06] MEDS: INSULIN DETEMIR (LEVEMIR) 100 UNIT/ML SYR SQ SCH (06:31)
[2019-10-06] MEDS: metFORMIN 500 MG TAB PO SCH (06:31)
[2019-10-06] MEDS: INSULIN ASPART (NovoLOG) 100 UNIT/ML VIAL SQ SCH ×2 (06:46→12:44)
[2019-10-06 07:40] LABS: Calcium 8.7 mg/dL (8.4-10.2); Potassium 3.7 mmol/L (3.5-5.1)
[2019-10-06] MEDS: FORMOTEROL FUMARATE 20 MCG/2 ML NEBU INHALATION SCH (07:42)
[2019-10-06] MEDS: BUDESONIDE 1 MG/2 ML NEBU INHALATION SCH (07:42)
[2019-10-06] MEDS: IPRATROPIUM-ALBUTEROL 3 ML NEB INHALATION SCH ×2 (07:42→11:27)
[2019-10-06 09:30] VITALS: RESP 20
[2019-10-06] MEDS: SENNOSIDES 8.6 MG TAB PO SCH (09:34)
[2019-10-06] MEDS: amLODIPine 10 MG TAB PO SCH (09:34)
[2019-10-06] MEDS: ESCITALOPRAM 10 MG TAB PO SCH (09:34)
[2019-10-06] MEDS: predniSONE 20 MG TAB PO SCH (09:34)
[2019-10-06] MEDS: ASPIRIN 81 MG PO SCH (09:34)
[2019-10-06] MEDS: MULTIVITAMINS, THERA 1 EACH TAB PO SCH (09:34)
[2019-10-06] MEDS: hydrALAZINE HCL 25 MG TAB PO SCH (09:34)
[2019-10-06] MEDS: ISOSORBIDE MONONITRATE ER 30 MG TAB.ER.24H PO SCH (09:34)
[2019-10-06] MEDS: CLOPIDOGREL 75 MG TAB PO SCH (09:34)
[2019-10-06] MEDS: EZETIMIBE 10 MG TAB PO SCH (09:35)
[2019-10-06] MEDS: TORSEMIDE 20 MG TAB PO SCH (09:35)
[2019-10-06] MEDS: VIT A,C & E-LUTEIN-MINERALS 1 EACH TAB PO SCH (09:37)
--- NOTE | 2019-10-06 10:44 | P.PN ---
Subjective Progress Note Date: 10/06/19 Principal diagnosis: This is 79-year-old female seen in consultation because of acute kidney injury secondary to congestive heart failure and cardiorenal syndrome. She has responded well to diuretics. At home she was on Lasix 40 twice a day. She has had an echocardiogram on 05/10/2019 which showed an ejection fraction of 60% and multiple mild to moderate valvular heart disease and severe pulmonary hypertension with pressure measured at 62 mm. She uses a CPAP machine at home. She has chronic edema and has had a coronary artery stent in 2018. Additionally she recently fell about 2 weeks ago and has Left distal radius fracture status post fall this has been casted With diuresis she has responded creatinine is coming down to 1.1. Urine output is not well documented but she sees her edema may be less and her shortness of breath is better. Objective - Vital Signs Vital signs: Vital Signs Temp 97.1 F L 10/06/19 08:00 Pulse 96 10/06/19 08:08 Resp 20 10/06/19 08:00 BP 141/76 10/06/19 08:00 Pulse Ox 96 10/06/19 08:00 Intake & Output 10/05/19 10/06/19 10/06/19 18:59 06:59 18:59 Intake Total 558 120 Balance 558 120 Weight 94.4 kg Intake: Oral 558 120 Other: # Voids 3 1 On examination she is awake alert oriented on nasal cannula HEENT exam no JVP is noted neck is supple no facial asymmetry Lungs are clear to auscultation fair air entry bilaterally Heart sounds are unremarkable for any murmur rub gallop Abdomen soft slightly protuberant Extremity exam was reveals bilateral Dennis wraps up to thighs Neurologically awake alert oriented but generalized weakness - Labs CBC & Chem 7: 10/02/19 02:10 10/06/19 06:42 Labs: Abnormal Lab Results - Last 24 Hours (Table) 10/05/19 10/05/19 10/05/19 Range/Units 12:22 16:43 20:50 Carbon Dioxide (22-30) mmol/L BUN (7-17) mg/dL Creatinine (0.52-1.04) mg/dL Glucose (74-99) mg/dL POC Glucose (mg/dL) 285 H 282 H 248 H (75-99) mg/dL 10/06/19 10/06/19 Range/Units 06:16 06:42 Carbon Dioxide 37 H (22-30) mmol/L BUN 47 H (7-17) mg/dL Creatinine 1.16 H (0.52-1.04) mg/dL Glucose 142 H (74-99) mg/dL POC Glucose (mg/dL) 158 H (75-99) mg/dL Assessment and Plan Assessment: Impression 1. Acute kidney injury secondary to cardiorenal syndrome, congestive heart failure improved with diuresis her creatinine down to 1.16. 2. Chronic kidney disease stage III nephrosclerosis GFR is in the 42-59 range. UA is negative for protein not quantified 3. Mild hyperkalemia at the time of admission potassium is 5.4 secondary to acute kidney injury and slightly high blood sugar at 313 at the time improved potassium is 3.7 this morning 4. Edema improved on torsemide started yesterday at 40 mg. 5. Hypertension, blood pressure is at target 5. Mild degree of metabolic alkalosis bicarb is 34 secondary to diuresis, worsened to 37 this morning 6. Anemia hemoglobin is 10.6 secondary to CK D Recommendation 1. Maintain diuretics with torsemide 40 mg a day as on Lasix 40 twice a day she continued to have significant edema and congestive heart failure 2. Monitor I's and O's, daily weight and blood pressures at home and just diuretic doses as necessary 3. Watch metabolic alkalosis as it might get worse. 4. She can be discharged home but will need close follow-up of her home blood pressures, home weights and constant adjustment of her diuretic regimen. Will have her her do this at our office
--- NOTE | 2019-10-06 10:59 | P.PN ---
Progress Note - Text Progress Note Date: 10/06/19 Orthopedics: History of present illness: Patient is very pleasant 79-year-old female who is seen and examined at bedside for follow-up evaluation of her left wrist. Since being seen and examined yesterday she has not had any change in her symptoms. She is currently sitting comfortably at bedside chair. Patient states she sustained a fall approximately 11-15 days ago falling on her left arm. She does experience some pain at the left wrist but did not seek further evaluation. She has continued to use her left wrist with activities but does have some pain while doing so. She has been recently admitted to the hospital on 10/02/2019 after presenting to the emergency department for persistent hypoxemia. She was admitted for acute COPD exacerbation. She had been experiencing progressive shortness of breath. She is being seen by pulmonology today and they did her wrist pain. X-ray imaging was taken of her left wrist which it showed evidence of a left distal radius fracture. Patient states she has been avoiding use of the left wrist and upper extremity since being seen and examined yesterday. An IV was intact in the left forearm which has been removed. We previously discussed placing a short-arm cast on the left upper extremity. Patient feels this is a good plan of care would like to proceed forward with casting. Patient's past medical history does include hyperlipidemia, hypertension, obstructive sleep apnea, hypothyroi dism, CLL, and coronary artery disease. Patient states she was told she may be discharged home today. Physical Exam: Patient is awake, alert, and oriented 3 Vital signs stable Adequate chest excursion with deep inspiration and expiration Evidence of significant swelling at the left wrist, left hand, and in the fingers Evidence of bruising over the proximal phalanges of the left hand Pain with palpation over the left distal radius No pain with elbow flexion and extension on the left No pain with pronation and supination on the left Patient is able to wiggle all fingers left hand without difficulty Some increased pain at the left wrist with active range of motion IV in the left forearm has been removed Short-arm cast is applied to the left upper extremity with sleeve, web roll, and 2 inch casting Cast remains dry and intact and in good position Procedure: Short-arm cast is applied to the left upper extremity with sleeve, web roll, and 2 inch casting. Patient tolerated the placement of the cast and is doing well. She is able to flex and extend the left elbow. She is able to wiggle all fingers the left hand including the thumb without difficulty and without significant pain. She is not experiencing any increased pain after cast placement. Pertinent studies: X-rays of the left hand taken on 10/05/2019: Evidence of left distal radius fracture with approximately 30 of posterior angulation but without significant displacement X-rays of the lumbar spine taken on 10/05/2019: Degenerative scoliosis; degenerative disc disease throughout the lumbar spine; osteopenia; no evidence of vertebral body compression fracture; no evidence of spondylolisthesis; abdominal aortic aneurysm measuring 4.3 cm Assessment: Left distal radius fracture status post fall Status post placement of short arm cast to the left upper extremity Left wrist pain Exacerbation of COPD Hyperlipidemia Hypertension Hypothyroidism Coronary artery disease Obstructive sleep apnea CLL Plan: 1. After reviewing of imaging and physical examination the patient, patient has evidence of a left distal radius fracture status post fall approximately 11-15 days ago. She continues to have pain at the left wrist with increased activities. She has pain with palpation over the left distal radius. Patient did not initially seek any treatment or evaluation for her left wrist and has continued to use it since that time but with some difficulty. We discussed at this time we will plan for casting of her left upper extremity. Previous IV placement at the left forearm has been removed. Patient feels casting is a good plan of care and agreed to proceed forward with cast placement. Short-arm cast at the left upper extremity was placed at the bedside. Patient tolerated cast placement. We discussed patient should keep his cast clean, dry, and intact. She may elevate the cast and apply ice outside the cast for comfort and support as needed. She should avoid heavy lifting with her left upper extremity. We discussed she could perform light activities with the left upper extremity including writing or using a coffee cup. We discussed patient is now clear for discharge from an orthopedic standpoint. We will plan for follow-up in approximately 1 week for further evaluation in the outpatient setting. Patient may follow-up with Alex Pope or Dr. Aneudy Cai at [facility]. We discussed the patient may contact the office for further evaluation earlier if she is having difficulty with her cast. 2. Patient will continue to be seeing exam by multiple other medical providers for her other medical diagnoses including medicine and pulmonology
[2019-10-06 12:16] LABS: Glucose,Whole Blood 180 mg/dL (75-99)
--- NOTE | 2019-10-06 13:33 | P.PN ---
Subjective Progress Note Date: 10/06/19 Principal diagnosis: Acute hypoxemic respiratory failure secondary to acute exacerbation of chronic obstructive pulmonary disease The patient is seen today 10/06/2019 in follow-up on the selective care unit. She is currently sitting up in a chair at the bedside. Awake and alert in no acute distress. She denies any worsening shortness of breath, cough or congestion. She is currently maintaining O2 saturations in the mid 90s on 5 L high flow nasal cannula. She's currently afebrile. Hemodynamically stable. She did sustain a fall injuring her left side and was still having complaints of swelling and pain in her left arm yesterday. X-ray revealed a Colles' type fraction of the distal radius and ulna. She was seen by orthopedics and currently in a cast. Sodium 144. Potassium 3.7. Creatinine 1.16. He is continued on DuoNeb inhalations, Pulmicort and Perforomist inhalations, prednisone, Demadex. Objective - Vital Signs Vital signs: Vital Signs Temp 97.1 F L 10/06/19 08:00 Pulse 92 10/06/19 11:38 Resp 20 10/06/19 08:00 BP 141/76 10/06/19 08:00 Pulse Ox 96 10/06/19 08:00 Intake & Output 10/05/19 10/06/19 10/06/19 18:59 06:59 18:59 Intake Total 558 120 Balance 558 120 Weight 94.4 kg Intake: Oral 558 120 Other: # Voids 3 1 - Exam GENERAL EXAM: Alert, very pleasant, 79-year-old white female, sitting up in the recliner, on 5 L of oxygen per pulse ox in the 90s, comfortable in no apparent distress. HEAD: Normocephalic/atraumatic. EYES: Normal reaction of pupils, equal size. Conjunctiva pink, sclera white. NOSE: Clear with pink turbinates. THROAT: No erythema or exudates. NECK: No masses, no JVD, no thyroid enlargement, no adenopathy. CHEST: No chest wall deformity. Symmetrical expansion. LUNGS: Equal air entry with basilar crackles CVS: Regular rate and rhythm, normal S1 and S2, no gallops, no murmurs, no rubs ABDOMEN: Soft, nontender. No hepatosplenomegaly, normal bowel sounds, no guarding or rigidity. EXTREMITIES: Ecchymosis and edema of the left upper extremity, cast in place. No clubbing, no cyanosis, 2+ pulses and upper and lower extremities. 1+ pitting edema in lower extremities MUSCULOSKELETAL: Muscle strength and tone normal. SPINE: No scoliosis or deformity SKIN: No rashes CENTRAL NERVOUS SYSTEM: No focal deficits, tone is normal in all 4 extremities. PSYCHIATRIC: Alert and oriented -3. Appropriate affect. Intact judgment and insight. - Labs CBC & Chem 7: 10/02/19 02:10 10/06/19 06:42 Labs: Abnormal Lab Results - Last 24 Hours (Table) 10/05/19 10/05/19 10/06/19 Range/Units 16:43 20:50 06:16 Carbon Dioxide (22-30) mmol/L BUN (7-17) mg/dL Creatinine (0.52-1.04) mg/dL Glucose (74-99) mg/dL POC Glucose (mg/dL) 282 H 248 H 158 H (75-99) mg/dL 10/06/19 10/06/19 Range/Units 06:42 12:12 Carbon Dioxide 37 H (22-30) mmol/L BUN 47 H (7-17) mg/dL Creatinine 1.16 H (0.52-1.04) mg/dL Glucose 142 H (74-99) mg/dL POC Glucose (mg/dL) 180 H (75-99) mg/dL Assessment and Plan Assessment: #1. Acute exacerbation of chronic obstructive pulmonary disease possibly comfor tably by a mild nonbacterial noninfective tracheobronchitis #2. Acute on chronic hypoxic respiratory failure related to chronic advanced COPD #3. Acute Colles' type of the left dital ulnar and radius, cast applied #4. Severe sleep apnea syndrome with AHI score 51, intolerant of CPAP or BiPAP #5. Acute kidney injury, improving #6. History of CLL #7. Degenerative joint disease #8. Macular degeneration #9. Hypertension #10. History of hypogammaglobulinemia Plan: The patient was seen and evaluated by Dr. Shoemaker She is currently stable and back to her baseline from the pulmonary standpoint Continue the current treatment plan Home once cleared medically Follow-up in the office as scheduled Encouraged to call sooner with any recurrence of symptoms or other questions or concerns I, the cosigning physician, performed a history & physical examination of the patient. Lungs sounds with equal air entry, basilar crackles. Maintaining good O2 saturations in the 90s on 5 L/m per nasal cannula. I discussed the assessment and plan of care with my nurse practitioner, Caty Chaudhary. I attest to the above note as dictated by her.
--- NOTE | 2019-10-06 14:27 | PN ---
PROGRESS NOTE Amara is a 79-year-old lady with history of chronic diastolic heart failure, obstructive sleep apnea, CAD, hypertension, dyslipidemia, who is admitted to the hospital with chronic diastolic heart failure and the Lasix is on hold secondary to intravascular volume depletion. She is currently on aspirin, Norvasc, Lipitor, Coreg, Zetia, Apresoline, Imdur, Synthroid and has been started back on Demadex yesterday. PHYSICAL EXAMINATION: On exam heart rate is 80 beats per minute. Blood pressure is 140/76, respiratory rate is 18. Chest exam reveals good air entry bilaterally. Heart exam reveals first and second heart sounds. No gallop. Exam of extremities reveal mild edema. LABS: Show that the BUN is 47, creatinine is 1.1, which have both improved. ASSESSMENT: Chronic diastolic heart failure. PLAN: Stable for discharge. Hopefully we can try to cut down the amount of diuretics that she is receiving. MMROLYL / IJN: [id number] /
[2019-10-06 16:07] VITALS: BP 140/63; PULSE 87; TEMP 97
[2019-10-06] MEDS ORDERED: ENOXAPARIN 40 MG/0.4 ML SYRINGE SQ SCH (21:00)
--- NOTE | 2019-10-06 22:41 | P.DS ---
Providers Date of admission: 10/02/19 02:29 Expected date of discharge: 10/06/19 Attending physician: Shekhar Gold Consults: 10/02/19 02:27 Consult Physician Routine Consulting Provider: Bernard Zaragoza Consult Reason/Comments: known Do you want consulting provider notified?: Yes 10/04/19 11:41 Consult Physician Routine Consulting Provider: Elmer Gutierrez Consult Reason/Comments: CARLOS Do you want consulting provider notified?: Yes 10/04/19 11:42 Consult Physician Routine Consulting Provider: Misael Adan Consult Reason/Comments: assess for chf Do you want consulting provider notified?: Yes 10/05/19 12:17 Consult Physician Routine Consulting Provider: Kelsi Cai Consult Reason/Comments: fractured left hand from fall 2 weeks ago Do you want consulting provider notified?: Yes Primary care physician: Radha Dooley [facility] Course: Chief Complaint: Short of breath History of presenting complaint: This is a very pleasant 79-year-old patient of Dr. Steph Dooley. Chronic stable medical conditions include hyperlipidemia, hypertension, obstructive sleep apnea does not use a CPAP machine, hypothyroid, CLL, macular degeneration, coronary artery disease with stent/2008. Home oxygen 4-5 L. . Patient now presents with progressive shortness of breath coming on for a few days. Some wheezing. Very slight cough no sputum. Appetite has been fair. No fever but chills. Tired. Slight edema. Admitted with COPD exacerbation. Follow up with Dr. Zaragoza from pulmonary. Admitted with acute COPD exacerbation and acute on chronic hypoxic respiratory failure. Started on bronchodilators steroids. Also found to have acute kidney injury. Creatinine was normal at 0.93, 8 weeks ago. Exacerbation of CHF exacerbation. Started on Lasix. Also felt depressed. Started on Lexapro. Also felt to have acute renal failure from cardiorenal syndrome. Given diuretics. Creatinine came down from 1.62 down to 1.16. Seen by nephrology, cardiology, pulmonary Today-feeling much better. Breathing much improved. Appetite better. Keen to go home. Care was discussed with the patient at length. Questions answered. Discussion and discharge planning more than 35 minutes Consultation: Dr. Jocelyn Adan from cardiology Dr. Shoemaker from pulmonary Dr. Moran from nephrology Physical examination: VITAL SIGNS: 97.8, 81, 20, 136/68, 92% on 6 L GENERAL: Sitting up in a chair, but tired EYES: Pupils equal. Conjunctiva normal. HEENT: External appearance of nose and ears normal, oral cavity grossly normal. NECK: JVD unable to assess masses not palpable. HEART: First and second heart sounds are normal; mild edema present LUNGS:[ Respiratory rate increased, decreased breath sounds, improved crackles ABDOMEN: Soft, nontender, liver spleen not palpable, no masses palpable. PSYCH: Alert and oriented x3; mood and affect appears low. MUSCULAR skeletal: Evidence of OA Investigations: Potassium 3.7 creatinine 1.16 Previous testing White count 43.4 hemoglobin 10.6 platelets 113 potassium 6.4 bun 65 creatinine 1.6 to Blood glucose 315, proBNP 4080 EKG tracing personally reviewed by me-shows abnormal T-wave in anterior leads, sinus rhythm Chest x-ray film personally reviewed by me-underexposed film, prominent interstitium, questionable infiltrate Previous testing: Patient is bun is 31 creatine 0.93 on August 01 2-D echocardiogram from May 2019 shows moderate concentric LVH and EF of 55- 60%, moderate to severe tricuspid regurgitation, severe pulmonary hypertension Assessment: - Acute COPD exacerbation in an ex-smoker, improved -Possible acute on Chronic congestive heart failure exacerbation from diastolic dysfunction EF 55-60% from underlying coronary artery disease, POA -Acute on chronic hypoxic respiratory failure, improved -Moderate to severe tricuspid regurgitation, nontraumatic -Secondary severe pulmonary hypertension -Essential hypertension -Diabetes mellitus II, uncontrolled with hyperglycemia -Hyperlipidemia -Hypothyroid -CLL -Chronic macular degeneration -Coronary artery disease with prior history of stent -Obesity BMI 32.6 -Chronic gait dysfunction uses a cane -Acute kidney injury, congestive heart failure with cardiorenal syndrome improving with diuretics -Hyperkalemia secondary to acute kidney injury -Highly doubt pneumonia-patient barely has cough. No sputum production. No fever. -Depression not otherwise specified Disposition: Home Patient Condition at Discharge: Stable Plan - Discharge Summary Discharge Rx Participant: No New Discharge Prescriptions: New Torsemide [Demadex] 40 mg PO DAILY #30 tab Ipratropium-Albuterol Nebulize [Duoneb 0.5 mg-3 mg/3 ml Soln] 3 ml INHALATION TID #90 ml Escitalopram [Lexapro] 10 mg PO DAILY #10 tab Continue amLODIPine [Norvasc] 10 mg PO DAILY Arformoterol Tartrate [Brovana] 15 mcg INHALATION RT-BID Aspirin EC [Ecotrin Low Dose] 81 mg PO DAILY Clotrimazole/Betamethasone Dip [Lotrisone Cream] 1 applic TOPICAL BID PRN PRN Reason: Skin Irritation Fluticasone Nasal [place] [Flonase Nasal [place]] 1 spray EA NOSTRIL DAILY hydrALAZINE HCL 25 mg PO BID Levothyroxine Sodium [Synthroid] 100 mcg PO DAILY LORazepam [Ativan] 0.5 mg PO BID PRN PRN Reason: Anxiety Multivitamins, Thera [Multivitamin (formulary)] 1 tab PO DAILY Nitroglycerin Sl Tabs [Nitrostat] 0.4 mg SUBLINGUAL Q5M PRN PRN Reason: Chest Pain Omeprazole [PriLOSEC] 20 mg PO DAILY Sennosides [Senna] 8.6 mg PO BID Vit C/E/Zn/Coppr/Lutein/Zeaxan [Preservision Areds 2 Softgel] 2 cap PO DAILY Yupelri 175mcg/3ml 175 mcg INHALATION RT-DAILY Atorvastatin [Lipitor] 40 mg PO HS Budesonide [Pulmicort] 0.5 mg INHALATION RT-BID carvediloL [Coreg] 6.25 mg PO BID Ezetimibe [Zetia] 10 mg PO DAILY Hydrocortisone Cream [Hydrocortisone 2.5% Cream] 1 applic TOPICAL QID PRN PRN Reason: Rash Levothyroxine Sodium [Synthroid] 50 mcg PO PADILLA Isosorbide Mononitrate ER [Imdur] 30 mg PO DAILY #30 tab.er.24h Clopidogrel [Plavix] 75 mg PO DAILY #30 tab Potassium Chloride ER [K-Dur 20] 20 meq PO DAILY Melatonin 3 mg PO HS PRN tablet PRN Reason: Insomnia sitaGLIPtin PHOSPHATE [Januvia] 100 mg PO DAILY predniSONE See Taper PO DAILY metFORMIN HCL [Glucophage] 500 mg PO BID-W/MEALS Promethaz-Cod 6.25-10 mg/5 ml [Phenergan with Codeine] 5 ml PO Q6HR PRN PRN Reason: Cough Albuterol Inhaler [Ventolin Hfa Inhaler] 2 puff INHALATION RT-QID PRN PRN Reason: Shortness Of Breath Discontinued Furosemide [Lasix] 40 mg PO BID Losartan Potassium [Cozaar] 50 mg PO DAILY Discharge Medication List Arformoterol Tartrate [Brovana] 15 mcg INHALATION RT-BID 10/03/16 [History] Aspirin EC [Ecotrin Low Dose] 81 mg PO DAILY 10/03/16 [History] Clotrimazole/Betamethasone Dip [Lotrisone Cream] 1 applic TOPICAL BID PRN 10/03/16 [History] Fluticasone Nasal [place] [Flonase Nasal [place]] 1 spray EA NOSTRIL DAILY 10/03/16 [History] LORazepam [Ativan] 0.5 mg PO BID PRN 10/03/16 [History] Levothyroxine Sodium [Synthroid] 100 mcg PO DAILY 10/03/16 [History] Multivitamins, Thera [Multivitamin (formulary)] 1 tab PO DAILY 10/03/16 [History] Nitroglycerin Sl Tabs [Nitrostat] 0.4 mg SUBLINGUAL Q5M PRN 10/03/16 [History] Omeprazole [PriLOSEC] 20 mg PO DAILY 10/03/16 [History] Sennosides [Senna] 8.6 mg PO BID 10/03/16 [History] Vit C/E/Zn/Coppr/Lutein/Zeaxan [Preservision Areds 2 Softgel] 2 cap PO DAILY 10/03/16 [History] amLODIPine [Norvasc] 10 mg PO DAILY 10/03/16 [History] hydrALAZINE HCL 25 mg PO BID 10/03/16 [History] Atorvastatin [Lipitor] 40 mg PO HS 05/09/19 [History] Budesonide [Pulmicort] 0.5 mg INHALATION RT-BID 05/09/19 [History] Ezetimibe [Zetia] 10 mg PO DAILY 05/09/19 [History] Hydrocortisone Cream [Hydrocortisone 2.5% Cream] 1 applic TOPICAL QID PRN 05/09/19 [History] Levothyroxine Sodium [Synthroid] 50 mcg PO PADILLA 05/09/19 [History] Yupelri 175mcg/3ml 175 mcg INHALATION RT-DAILY 05/09/19 [History] carvediloL [Coreg] 6.25 mg PO BID 05/09/19 [History] Clopidogrel [Plavix] 75 mg PO DAILY #30 tab 05/11/19 [Rx] Isosorbide Mononitrate ER [Imdur] 30 mg PO DAILY #30 tab.er.24h 05/11/19 [Rx] Potassium Chloride ER [K-Dur 20] 20 meq PO DAILY 08/03/19 [History] Melatonin 3 mg PO HS PRN tablet 08/04/19 [Rx] Albuterol Inhaler [Ventolin Hfa Inhaler] 2 puff INHALATION RT-QID PRN 10/02/19 [History] Promethaz-Cod 6.25-10 mg/5 ml [Phenergan with Codeine] 5 ml PO Q6HR PRN 10/02/19 [History] metFORMIN HCL [Glucophage] 500 mg PO BID-W/MEALS 10/02/19 [History] predniSONE See Taper PO DAILY 10/02/19 [History] sitaGLIPtin PHOSPHATE [Januvia] 100 mg PO DAILY 10/02/19 [History] Escitalopram [Lexapro] 10 mg PO DAILY #10 tab 10/06/19 [Rx] Ipratropium-Albuterol Nebulize [Duoneb 0.5 mg-3 mg/3 ml Soln] 3 ml INHALATION TID #90 ml 10/06/19 [Rx] Torsemide [Demadex] 40 mg PO DAILY #30 tab 10/06/19 [Rx] Follow up Appointment(s)/Referral(s): cardiology,dr [Other] - 1 Week [facility] [NON-STAFF] - Alex Pope PAC [PHYSICIAN THREAD LASTER] - 1 Week (Patient may follow-up with Alex Pope PA-C or Dr. Aneudy Cai at [facility] in 1 week following discharge. ) Radha Dooley MD [Primary Care Provider] - 1-2 days (Please call the office Monday to schedule a follow up appointment) Elmer Gutierrez DO [STAFF PHYSICIAN] - 10 Days (Please call office on Monday to schedule follow up appointment) Patient Instructions/Handouts: Wrist Fracture in Adults (DC), COPD (Chronic Obstructive Pulmonary Disease) (DC), Hyperkalemia (GEN) Activity/Diet/Wound Care/Special Instructions: For your talking Glocometer when you follow up with your PCP you are eligible for more test strips and lancets after 91 days from receiving this talking glucometer. Have your doctor write for Lancets and test strips for voice activa tiffani glucometer and send it to [facility] for refills. [facility] can deliver these to your home after they receive the script due to the pandemic. 1. Keep cast at the left upper extremity clean, dry, and intact. 2. Patient may elevate the cast and apply ice outside the cast for comfort and support as needed. 3. Avoid heavy lifting with her left upper extremity. 4. Patient may perform light activities with the left upper extremity including writing or using a coffee cup. bmp - 5 days Discharge Disposition: HOME SELF-CARE
== END 2019-10-06 15:24 | disposition home health service (06) | DRG 190 ==
LOC: EC 02:01 → 3SCARD 02:29
PROVIDERS: ADMIT Hospitalist; ATTEND Hospitalist
DX: J44.0 Chronic obstructive pulmonary disease with (acute) lower respiratory infection (principal); J96.21 Acute and chronic respiratory failure with hypoxia; I50.33 Acute on chronic diastolic (congestive) heart failure; S52.532A Colles' fracture of left radius, initial encounter for closed fracture; C91.10 Chronic lymphocytic leukemia of B-cell type not having achieved remission; N17.9 Acute kidney failure, unspecified; D80.1 Nonfamilial hypogammaglobulinemia; E87.3 Alkalosis; I13.0 Hypertensive heart and chronic kidney disease with heart failure and stage 1 through stage 4 chronic kidney disease, or unspecified chronic kidney disease; J44.1 Chronic obstructive pulmonary disease with (acute) exacerbation; I27.29 Other secondary pulmonary hypertension; D63.1 Anemia in chronic kidney disease; N18.3 Chronic kidney disease, stage 3 (moderate); E11.22 Type 2 diabetes mellitus with diabetic chronic kidney disease; E11.65 Type 2 diabetes mellitus with hyperglycemia; I71.4 Abdominal aortic aneurysm, without rupture; Z20.828 Contact with and (suspected) exposure to other viral communicable diseases; M41.56 Other secondary scoliosis, lumbar region; J40 Bronchitis, not specified as acute or chronic; E03.9 Hypothyroidism, unspecified; E78.5 Hyperlipidemia, unspecified; E87.5 Hyperkalemia; E86.9 Volume depletion, unspecified; I36.1 Nonrheumatic tricuspid (valve) insufficiency; I25.10 Atherosclerotic heart disease of native coronary artery without angina pectoris; M51.36 Other intervertebral disc degeneration, lumbar region; G47.33 Obstructive sleep apnea (adult) (pediatric); H35.30 Unspecified macular degeneration; M85.88 Other specified disorders of bone density and structure, other site; T50.2X5A Adverse effect of carbonic-anhydrase inhibitors, benzothiadiazides and other diuretics, initial encounter; F32.9 Major depressive disorder, single episode, unspecified; F41.9 Anxiety disorder, unspecified; M19.90 Unspecified osteoarthritis, unspecified site; R26.9 Unspecified abnormalities of gait and mobility; E66.9 Obesity, unspecified; Z68.35 Body mass index [BMI] 35.0-35.9, adult; Z99.81 Dependence on supplemental oxygen; Z79.82 Long term (current) use of aspirin; Z79.51 Long term (current) use of inhaled steroids; Z79.02 Long term (current) use of antithrombotics/antiplatelets; Z79.890 Hormone replacement therapy; Z79.84 Long term (current) use of oral hypoglycemic drugs; Z79.899 Other long term (current) drug therapy; Z87.891 Personal history of nicotine dependence; Z85.828 Personal history of other malignant neoplasm of skin; Z95.5 Presence of coronary angioplasty implant and graft; Z90.89 Acquired absence of other organs; Z87.42 Personal history of other diseases of the female genital tract; Z91.81 History of falling; Z98.890 Other specified postprocedural states; W19.XXXA Unspecified fall, initial encounter; Z82.49 Family history of ischemic heart disease and other diseases of the circulatory system; Z81.1 Family history of alcohol abuse and dependence; Z83.79 Family history of other diseases of the digestive system
CPT/HCPCS: 36415; 71045; 72100; 80048; 80053; 81003; 83036; 83605; 83735; 83880; 84484; 85025; 85610; 85730; 93005; 94640; 94760; 96361; 96365; 96367; 96375; 96376; 99291

== ENCOUNTER → 2019-10-16 | Outpatient (CLI) | payer MEDICARE, BC ==
--- NOTE | 2019-10-16 14:19 | US ---
EXAMINATION TYPE: US extremity nonvasc mass RT DATE OF EXAM: 10/16/2019 COMPARISON: NONE CLINICAL HISTORY: 79-year-old female R22.41 LUMP ON THE RIGHT LOWER EXTREMITY. Lump along the medial aspect of the upper right thigh for a couple days TECHNIQUE: Targeted ultrasound examination along the medial aspect of the upper right thigh at the pa tient's palpable site. FINDINGS: SONOGRAPHY NOTES: Right upper medial thigh: 3 irregular hypoechoic non vascular areas seen with larg est measuring 2.0cm. These appear to be centered within the subcutaneous adipose and there is surrounding thickening of th e fatty tissues. IMPRESSION: Some thickening of the subcutaneous adipose at the patient's site of palpable abnormalit y along the medial aspect of the upper right thigh. There are also 3 cystic areas measuring up to 2 c m embedded within the thickening. Consider bruising with small hematomas, phlegmon, or areas of fat n ecrosis. Clinical follow-up recommended to ensure involution. Ultrasound follow-up can also be perfor med if any persisting or enlarging palpable abnormality is encountered.
== END | disposition home or self-care (01) ==
LOC: RADUSWWP 12:44
PROVIDERS: ATTEND Internal Medicine Hematology & Oncology
DX: R22.41 Localized swelling, mass and lump, right lower limb (principal)

== ENCOUNTER → 2019-11-06 | Outpatient (CLI) | payer MEDICARE, BC ==
--- NOTE | 2019-11-07 16:45 | CT ---
EXAMINATION TYPE: CT ChestAbdPelvis wo con DATE OF EXAM: 11/06/2019 INDICATION: SOB, hx of leukemia COMPARISON: CTA chest 10/03/2016 CT DLP: 1057 mGycm CONTRAST: None TECHNIQUE: Axial images at 5 mm thick sections. Reconstructed images in the coronal plane. Delayed images through the kidneys. FINDINGS: CT CHEST: There is a large subcutaneous well-circumscribed nodule in the left posterior lateral mid c hest measuring 2.6 x 4.0 cm. Series 3 image 34. Series 5 image 89. Metastatic lesion cannot be exclud ed. Portion of the thyroid visualized is normal. No suspicious lung nodules or focal infiltrates are present. Some mild groundglass opacity may be wit hin the right upper lobe. Findings are superimposed on COPD. Some mild streaky opacities in the lung bases likely on the basis of subsegmental atelectasis. A 0.3 cm nodules in the posterior lateral righ t lung base. Series 4 image 47 0.2 cm nodule may be within the right middle lobe. Series 4 image 33 Multiple scattered small lymph nodes are through the mediastinum. There may be a 1.6 cm lymph node in the pretracheal space. Additional enlarged lymphadenopathy is not identified. No suspicious hilar ad enopathy is evident. The ascending aorta diameter at the level of the main pulmonary artery is 3.9 cm. The main pulmonary artery diameter at the bifurcation is 4.2 cm. Correlate for pulmonary hypertension. Coronary artery calcification is present. CT ABDOMEN: Liver: Normal Spleen: Normal Pancreas: Normal Adrenal glands: The adrenal glands are normal. Gallbladder: Multiple hyperdense areas are within the dependent portions of the gallbladder compatibl e with gallstones. Kidneys: No masses are evident. No hydronephrosis is present. There is a 1.6 cm cyst measuring -6 H [place] units on the posterior left kidney. There is a 0.2 cm punctate nonobstructing renal stone i n the mid left kidney. Delayed images were obtained through the kidneys, which remain unremarkable. Aorta: Vascular calcification is within the aorta. 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 Inferior vena cava: Normal. CT PELVIS: Loops of bowel within the abdomen and pelvis are normal. There are loops of bowel which are incom pletely distended or lack oral contrast limiting their evaluation. There are some scattered diverticu li within the sigmoid colon. No acute diverticulitis is evident. Appendix: Normal as visualized. Urinary bladder: Decompressed somewhat limited evaluation. Genitourinary structures: Uterus is slightly retroverted. Large coarse calcification is present torres tible with calcified fibroids. Adnexal regions are clear. No free fluid is within the pelvis. Osseous structures: No suspicious lytic or sclerotic lesions. Facet hypertrophy is in the lower lumba r spine. Some degenerative disc changes are present. Some scoliosis is present. IMPRESSIONS: 1. Solid nodule in subcutaneous tissue left posterior lateral mid chest wall measuring 2.6 x 4.0 cm. 2. Few very tiny punctate nodules discussed within the right lung above. Follow-up CT chest for monit oring these tiny nodules is recommended in 6-12 months. 3. Enlarged pretracheal lymph node with additional shotty lymphadenopathy. 4. Sigmoid diverticulosis without acute diverticulitis. 5. Calcified uterine fibroids. 6. Cholelithiasis
== END | disposition home or self-care (01) ==
LOC: RADCTMAIN 14:58
PROVIDERS: ATTEND Internal Medicine Hematology & Oncology
DX: Z03.89 Encounter for observation for other suspected diseases and conditions ruled out (principal); C91.10 Chronic lymphocytic leukemia of B-cell type not having achieved remission; R91.8 Other nonspecific abnormal finding of lung field; R59.0 Localized enlarged lymph nodes; K57.30 Diverticulosis of large intestine without perforation or abscess without bleeding; K80.20 Calculus of gallbladder without cholecystitis without obstruction; D25.9 Leiomyoma of uterus, unspecified
CPT/HCPCS: 36415; 71250; 74176; 82565; 84520

== ENCOUNTER 2019-12-09 01:04 | Inpatient (IN) | payer MEDICARE, BC ==
--- NOTE | 2019-12-09 01:10 | ED ---
General Adult HPI - General Stated complaint: ROHITH Time Seen by Provider: 12/09/19 01:09 - History of Present Illness Initial comments: Amara is a pleasant 79-year-old female with a history of leukemia, CHF as well as COPD. Patient presents the ER today via ambulance for evaluation of shortness of breath. Patient is somewhat of a poor historian she states she's felt short of breath for about 2 week she's been compliant with her home nasal cannula at 4 L. Patient reports she's been feeling short of breath she denies any chest pain cough or fever. Denies recent illness doesn't believe she is been hospitalized in the past few weeks. - Related Data Home Medications Medication Instructions Recorded Confirmed Arformoterol Tartrate [Brovana] 15 mcg INHALATION RT-BID 10/03/16 10/02/19 Aspirin EC [Ecotrin Low Dose] 81 mg PO DAILY 10/03/16 10/02/19 Clotrimazole/Betamethasone Dip 1 applic TOPICAL BID PRN 10/03/16 10/02/19 [Lotrisone Cream] Fluticasone Nasal [place] [Flonase 1 spray EA NOSTRIL DAILY 10/03/16 10/02/19 Nasal [place]] LORazepam [Ativan] 0.5 mg PO BID PRN 10/03/16 10/02/19 Levothyroxine Sodium [Synthroid] 100 mcg PO DAILY 10/03/16 10/02/19 Multivitamins, Thera [Multivitamin 1 tab PO DAILY 10/03/16 10/02/19 (formulary)] Nitroglycerin Sl Tabs [Nitrostat] 0.4 mg SUBLINGUAL Q5M PRN 10/03/16 10/02/19 Omeprazole [PriLOSEC] 20 mg PO DAILY 10/03/16 10/02/19 Sennosides [Senna] 8.6 mg PO BID 10/03/16 10/02/19 Vit C/E/Zn/Coppr/Lutein/Zeaxan 2 cap PO DAILY 10/03/16 10/02/19 [Preservision Areds 2 Softgel] amLODIPine [Norvasc] 10 mg PO DAILY 10/03/16 10/02/19 hydrALAZINE HCL 25 mg PO BID 10/03/16 10/02/19 Atorvastatin [Lipitor] 40 mg PO HS 05/09/19 10/02/19 Budesonide [Pulmicort] 0.5 mg INHALATION RT-BID 05/09/19 10/02/19 Ezetimibe [Zetia] 10 mg PO DAILY 05/09/19 10/02/19 Hydrocortisone Cream 1 applic TOPICAL QID PRN 05/09/19 10/02/19 [Hydrocortisone 2.5% Cream] Levothyroxine Sodium [Synthroid] 50 mcg PO PADILLA 05/09/19 10/02/19 Yupelri 175mcg/3ml 175 mcg INHALATION RT-DAILY 05/09/19 10/02/19 carvediloL [Coreg] 6.25 mg PO BID 05/09/19 10/02/19 Potassium Chloride ER [K-Dur 20] 20 meq PO DAILY 08/03/19 10/02/19 Albuterol Inhaler [Ventolin Hfa 2 puff INHALATION RT-QID PRN 10/02/19 10/02/19 Inhaler] Promethaz-Cod 6.25-10 mg/5 ml 5 ml PO Q6HR PRN 10/02/19 10/02/19 [Phenergan with Codeine] metFORMIN HCL [Glucophage] 500 mg PO BID-W/MEALS 10/02/19 10/02/19 predniSONE See Taper PO DAILY 10/02/19 10/02/19 sitaGLIPtin PHOSPHATE [Januvia] 100 mg PO DAILY 10/02/19 10/02/19 Previous Rx's Medication Instructions Recorded Clopidogrel [Plavix] 75 mg PO DAILY #30 tab 05/11/19 Isosorbide Mononitrate ER [Imdur] 30 mg PO DAILY #30 tab.er.24h 05/11/19 Melatonin 3 mg PO HS PRN tablet 08/04/19 Escitalopram [Lexapro] 10 mg PO DAILY #10 tab 10/06/19 Ipratropium-Albuterol Nebulize 3 ml INHALATION TID #90 ml 10/06/19 [Duoneb 0.5 mg-3 mg/3 ml Soln] Torsemide [Demadex] 40 mg PO DAILY #30 tab 10/06/19 Allergies Allergy/AdvReac Type Severity Reaction Status Date / Time No Known Allergies Allergy Verified 12/09/19 01:12 Review of Systems ROS Statement: Those systems with pertinent positive or pertinent negative responses have been documented in the HPI. ROS Other: All systems not noted in ROS Statement are negative. Past Medical History Past Medical History: Cancer, Heart Failure, COPD, Hyperlipidemia, Hypertension, Sleep Apnea/CPAP/BIPAP, Thyroid Disorder Additional Past Medical History / Comment(s): CLL. sleep apnea. macular degeneration. Skin ca History of Any Multi-Drug Resistant Organisms: None Reported Past Surgical History: Heart Catheterization With Stent, Tonsillectomy Additional Past Surgical History / Comment(s): d & c Past Anesthesia/Blood Transfusion Reactions: No Reported Reaction Date of Last Stent Placement:: 2007 Past Psychological History: No Psychological Hx Reported Smoking Status: Former smoker Past Alcohol Use History: Daily Past Drug Use History: None Reported - Past Family History Mother Family Medical History: Congestive Heart Failure (CHF) Father Family Medical History: No Reported History Additional Family Medical History / Comment(s): "Alcohol problems" Chirrosis General Exam - General Exam Comments Initial Comments: Physical Exam GENERAL: Chronically ill-appearing elderly female in no acute distress HENT: Normocephalic, Atraumatic. EYES: PERRL, EOMI Mild conjunctival pallor PULMONARY: Mild expiratory wheezing CARDIOVASCULAR: There is a regular rate and rhythm without any murmurs gallops or rubs. No lower extremity edema ABDOMEN: Soft and nontender with normal bowel sounds. SKIN: Pale Bruising on lower extremities : Deferred NEUROLOGIC: Patient is alert and oriented x3. Moving all extremities spontaneously MUSCULOSKELETAL: Normal extremities with adequate strength and full range of motion. No lower extremity swelling or edema. No calf tenderness. PSYCHIATRIC: Normal psychiatric evaluation. Course Vital Signs 12/09/19 12/09/19 12/09/19 01:05 01:19 01:30 Temperature 98.1 F Pulse Rate 84 81 76 Respiratory 22 20 16 Rate Blood Pressure 104/51 107/52 O2 Sat by Pulse 89 L 87 L 91 L Oximetry 12/09/19 12/09/19 12/09/19 01:31 01:43 02:00 Temperature Pulse Rate 80 81 79 Respiratory 20 Rate Blood Pressure 109/55 O2 Sat by Pulse 91 L Oximetry 12/09/19 12/09/19 12/09/19 03:00 03:15 03:25 Temperature Pulse Rate 92 76 92 Respiratory Rate Blood Pressure 108/61 O2 Sat by Pulse Oximetry 10/05/20 10/05/20 10/05/20 03:33 04:00 04:53 Temperature 97.5 F L Pulse Rate 91 85 20 L Respiratory 18 18 Rate Blood Pressure 109/57 93/62 O2 Sat by Pulse 84 L 87 L Oximetry EKG Findings - EKG Comments: EKG Findings:: KG was obtained due to complaint of shortness of breath, EKG was obtained at 1:10 AM, rate is 82 rhythm is sinus with first-degree AV block, rightward axis, ND prolonged 270, QRS 146, QTC [address] elevations or depressions no evidence of acute ischemia or infarction. Medical Decision Making - Medical Decision Making The patient was seen and evaluated history is obtained from the patient Patient is noted be hypoxic, septic workup was initiated Labs resulted with multiple critical abnormalities, most importantly was hyperkalemia which was treated with a hyperkalemia protocol Patient also had significant elevated BUN and creatinine which is new. CODE STATUS was discussed with the patient and daughter bedside, they understand that the patient requires IV fluids for her dehydration however she does have history of heart failure and may end up requiring invasive ventilation which the patient is agreeable to. Given that the patient rate is receiving IV fluids she was placed on BiPAP Patient care was discussed with Dr. Ascencio of the ICU who agrees with plan for admission for hyperkalemia, lactic acidosis, acute kidney failure, congestive heart failure Patient care was discussed with of the [facility] hospitalist group who accepts the admission to her service - Lab Data Result diagrams: 12/09/19 05:51 12/09/19 05:51 Lab Results 12/09/19 12/09/19 12/09/19 Range/Units 01:36 01:36 01:36 WBC 51.8 H* (3.8-10.6) k/uL RBC 2.44 L (3.80-5.40) m/uL Hgb 8.1 L (11.4-16.0) gm/dL Hct 26.2 L (34.0-46.0) % MCV 107.4 H (80.0-100.0) fL MCH 33.0 (25.0-35.0) pg MCHC 30.8 L (31.0-37.0) g/dL RDW 14.6 (11.5-15.5) % Plt Count 69 L (150-450) k/uL Neutrophils % (Manual) 2 % Lymphocytes % (Manual) 97 % Monocytes % (Manual) 1 % Neutrophils # (Manual) 1.04 L (1.3-7.7) k/uL Lymphocytes # (Manual) 50.25 H (1.0-4.8) k/uL Monocytes # (Manual) 0.52 (0-1.0) k/uL Nucleated RBCs 0 (0-0) /100 WBC Differential Comment Manual Slide Review Performed Hypochromasia Moderate Macrocytosis Moderate PT 10.8 (9.0-12.0) sec INR 1.1 (<1.2) APTT 21.1 L (22.0-30.0) sec Sodium 134 L (137-145) mmol/L Potassium 8.6 H* (3.5-5.1) mmol/L Chloride 95 L (98-107) mmol/L Carbon Dioxide 26 (22-30) mmol/L Anion Gap 13 mmol/L BUN 160 H* (7-17) mg/dL Creatinine 5.73 H (0.52-1.04) mg/dL Est GFR (CKD-EPI)AfAm 8 (>60 ml/min/1.73 sqM) Est GFR (CKD-EPI)NonAf 7 (>60 ml/min/1.73 sqM) Glucose 167 H (74-99) mg/dL Lactic Ac Sepsis Rflx Plasma Lactic Acid Charles (0.7-2.0) mmol/L Calcium 8.0 L (8.4-10.2) mg/dL Total Bilirubin 0.7 (0.2-1.3) mg/dL AST 21 (14-36) U/L ALT 19 (4-34) U/L Alkaline Phosphatase 46 (38-126) U/L Troponin I (0.000-0.034) ng/mL NT-Pro-B Natriuret Pep pg/mL Total Protein 5.8 L (6.3-8.2) g/dL Albumin 3.8 (3.5-5.0) g/dL 12/09/19 12/09/19 12/09/19 Range/Units 01:36 01:36 01:36 WBC (3.8-10.6) k/uL RBC (3.80-5.40) m/uL Hgb (11.4-16.0) gm/dL Hct (34.0-46.0) % MCV (80.0-100.0) fL MCH (25.0-35.0) pg MCHC (31.0-37.0) g/dL RDW (11.5-15.5) % Plt Count (150-450) k/uL Neutrophils % (Manual) % Lymphocytes % (Manual) % Monocytes % (Manual) % Neutrophils # (Manual) (1.3-7.7) k/uL Lymphocytes # (Manual) (1.0-4.8) k/uL Monocytes # (Manual) (0-1.0) k/uL Nucleated RBCs (0-0) /100 WBC Differential Comment Manual Slide Review Hypochromasia Macrocytosis PT (9.0-12.0) sec INR (<1.2) APTT (22.0-30.0) sec Sodium (137-145) mmol/L Potassium (3.5-5.1) mmol/L Chloride (98-107) mmol/L Carbon Dioxide (22-30) mmol/L Anion Gap mmol/L BUN (7-17) mg/dL Creatinine (0.52-1.04) mg/dL Est GFR (CKD-EPI)AfAm (>60 ml/min/1.73 sqM) Est GFR (CKD-EPI)NonAf (>60 ml/min/1.73 sqM) Glucose (74-99) mg/dL Lactic Ac Sepsis Rflx Plasma Lactic Acid Charles 3.3 H* (0.7-2.0) mmol/L Calcium (8.4-10.2) mg/dL Total Bilirubin (0.2-1.3) mg/dL AST (14-36) U/L ALT (4-34) U/L Alkaline Phosphatase (38-126) U/L Troponin I 0.132 H* (0.000-0.034) ng/mL NT-Pro-B Natriuret Pep 25907 pg/mL Total Protein (6.3-8.2) g/dL Albumin (3.5-5.0) g/dL 12/09/19 Range/Units 02:32 WBC (3.8-10.6) k/uL RBC (3.80-5.40) m/uL Hgb (11.4-16.0) gm/dL Hct (34.0-46.0) % MCV (80.0-100.0) fL MCH (25.0-35.0) pg MCHC (31.0-37.0) g/dL RDW (11.5-15.5) % Plt Count (150-450) k/uL Neutrophils % (Manual) % Lymphocytes % (Manual) % Monocytes % (Manual) % Neutrophils # (Manual) (1.3-7.7) k/uL Lymphocytes # (Manual) (1.0-4.8) k/uL Monocytes # (Manual) (0-1.0) k/uL Nucleated RBCs (0-0) /100 WBC Differential Comment Manual Slide Review Hypochromasia Macrocytosis PT (9.0-12.0) sec INR (<1.2) APTT (22.0-30.0) sec Sodium (137-145) mmol/L Potassium (3.5-5.1) mmol/L Chloride (98-107) mmol/L Carbon Dioxide (22-30) mmol/L Anion Gap mmol/L BUN (7-17) mg/dL Creatinine (0.52-1.04) mg/dL Est GFR (CKD-EPI)AfAm (>60 ml/min/1.73 sqM) Est GFR (CKD-EPI)NonAf (>60 ml/min/1.73 sqM) Glucose (74-99) mg/dL Lactic Ac Sepsis Rflx Y Plasma Lactic Acid Charles (0.7-2.0) mmol/L Calcium (8.4-10.2) mg/dL Total Bilirubin (0.2-1.3) mg/dL AST (14-36) U/L ALT (4-34) U/L Alkaline Phosphatase (38-126) U/L Troponin I (0.000-0.034) ng/mL NT-Pro-B Natriuret Pep pg/mL Total Protein (6.3-8.2) g/dL Albumin (3.5-5.0) g/dL Critical Care Time Critical Care Time: Yes Total Critical Care Time: 45 Critical Care Time: Critical Care Time 45 min Critical care time was exclusive of separately billable procedures and treating other patients and teaching time. Critical care was necessary to treat or prevent imminent or life-threatening deterioration. Given the critical condition in which the patient arrived, the patient was immediately assessed by myself and the nurse, and cardiac monitoring initiated due to the potential for rapid decompensation of the patient's clinical condition. During the course of the patients stay, I spent a considerable amount of time at the bedside performing serial re-evaluations of the patient's hemodynamic and clinical status because of the recognized potential threat to life or limb in this condition. I then had a chance to review not only all of the available current laboratory and radiographic studies obtained today, but I also reviewed old records available to me at the time. Additionally, any ancillary information available including civil engineering project designer records were reviewed. Sequential vital signs were obtained. Disposition Clinical Impression: Acute pulmonary edema, COPD (chronic obstructive pulmonary disease), Hyperkalemia, MADAY (obstructive sleep apnea), Congestive heart failure, Elevated troponin, CLL (chronic lymphocytic leukemia), CARLOS (acute kidney injury) Disposition: ADMITTED IP TO THIS [facility] Condition: Critical Is patient prescribed a controlled substance at d/c from ED?: No
[2019-12-09] MEDS ORDERED: IPRATROPIUM-ALBUTEROL 3 ML NEB INHALATION STA (01:26)
[2019-12-09 01:49] LABS: HCT 26.2 % (34.0-46.0); HGB 8.1 gm/dL (11.4-16.0); Hypochromasia Moderate; MCHC 30.8 g/dL (31.0-37.0); MCV 107.4 fL (80.0-100.0); Macrocytosis Moderate; Mean Platelet Volume 8.7; RBC 2.44 m/uL (3.80-5.40); RDW 14.6 % (11.5-15.5)
[2019-12-09 01:55] LABS: WBC 51.8 k/uL (3.8-10.6)
[2019-12-09 02:17] LABS: Albumin 3.8 g/dL (3.5-5.0); INR 1.1 (<1.2); Lymphocytes # (M) 50.25 k/uL (1.0-4.8); Monocytes # (M) 0.52 k/uL (0-1.0); Neutrophils # (M) 1.04 k/uL (1.3-7.7); Neutrophils % (M) 2 %; Nucleated Red Blood Cells 0 /100 WBC (0-0); Partial Thromboplastin Time 21.1 sec (22.0-30.0); Prothrombin Time 10.8 sec (9.0-12.0); Total Bilirubin 0.7 mg/dL (0.2-1.3); Total Cells Counted 100; Total Protein 5.8 g/dL (6.3-8.2)
[2019-12-09 02:18] LABS: Platelet Count 69 k/uL (150-450)
--- NOTE | 2019-12-09 02:23 | XR ---
EXAMINATION TYPE: XR chest 2V DATE OF EXAM: 12/09/2019 COMPARISON: 10/02/2019 HISTORY: Short of breath TECHNIQUE: FINDINGS: Heart is enlarged. There is pulmonary edema. There is blunting of the costophrenic angles. There are chest leads. IMPRESSION: Congestive heart failure with pleural fluid. Heart failure appears worse than last exam.
[2019-12-09 02:33] LABS: Potassium 8.6 mmol/L (3.5-5.1)
[2019-12-09] MEDS ORDERED: SODIUM BICARB 8.4% 50 ML SYR (1 MEQ/ML) IV ONE (02:39)
[2019-12-09] MEDS ORDERED: ALBUTEROL NEB (CONC) 2.5 MG/0.5 ML INHALATION ONE (02:39)
[2019-12-09] MEDS ORDERED: DEXTROSE 50% SYRINGE 50 ML IVP ONE (02:39)
[2019-12-09] MEDS ORDERED: INSULIN REGULAR 100 UNIT/ML VIAL IV ONE ×3 (02:39→10:55)
[2019-12-09] MEDS ORDERED: SODIUM CHLORIDE 0.9% 1,000 ML IV ONE (02:40)
[2019-12-09] MEDS ORDERED: SODIUM CHLORIDE 0.9% 1,000 ML IV SCH (02:45)
[2019-12-09] MEDS ORDERED: FUROSEMIDE 10 MG/ML 4 ML VIAL IV STA (02:45)
[2019-12-09] MEDS ORDERED: CALCIUM GLUCONATE 1 GM in SODIUM CHLORIDE 0.9% 100 ML IVPB ONE ×2 (03:00→11:15)
[2019-12-09] MEDS ORDERED: NALOXONE 0.4 MG/ML 1 ML VIAL IV PRN (03:19)
[2019-12-09] MEDS: MORPHINE SULFATE 4 MG/ML SYRINGE IV PRN (04:00)
[2019-12-09 04:03] LABS: Appearance,Urine Cloudy (Clear); Bacteria,Urine Few /hpf; Bilirubin,Urine Negative (Negative); Blood,Urine Negative (Negative); Color,Urine Yellow; Glucose,Urine (UA) Negative (Negative); Ketones,Urine Negative (Negative); Leukocyte Esterase,Urine Large (Negative); Mucus,Urine Many /hpf; Nitrite,Urine Negative (Negative); Protein,Urine Negative (Negative); RBC,Urine <1 /hpf (0-5); Specific Gravity,Urine 1.013 (1.001-1.035); Urobilinogen,Urine <2.0 mg/dL (<2.0); WBC,Urine 34 /hpf (0-5)
[2019-12-09] MEDS: IPRATROPIUM-ALBUTEROL 3 ML NEB INHALATION SCH ×5 (04:22→18:08)
[2019-12-09 05:29] LABS: Glucose,Whole Blood 168 mg/dL (75-99)
[2019-12-09 05:35] LABS: ABG Base Excess 0.7 mmol/L; ABG HCO3 27 mmol/L (21-25); ABG Oxygen Saturation 88.4 % (94-97); ABG PCO2 56 mmHg (35-45); ABG PH 7.29 (7.35-7.45); ABG TCO2 29 mmol/L (19-24); Allen Test Performed? Yes
[2019-12-09 05:38] LABS: ABG PO2 59 mmHg (83-108)
[2019-12-09] MEDS ORDERED: SODIUM BICARB 8.4% 50 ML SYR (1 MEQ/ML) IV STA (06:05)
[2019-12-09] MEDS ORDERED: DEXTROSE 50% SYRINGE 50 ML IVP STA ×2 (06:05→10:55)
[2019-12-09 06:11] LABS: HCT 25.1 % (34.0-46.0); HGB 7.5 gm/dL (11.4-16.0); Hypochromasia Marked; MCH 32.5 pg (25.0-35.0); MCHC 29.9 g/dL (31.0-37.0); MCV 108.5 fL (80.0-100.0); Macrocytosis Marked; Mean Platelet Volume 9.4; RBC 2.32 m/uL (3.80-5.40); RDW 14.2 % (11.5-15.5); WBC 43.5 k/uL (3.8-10.6)
[2019-12-09 06:15] LABS: Platelet Count 63 k/uL (150-450)
[2019-12-09 06:20] LABS: Calcium 7.6 mg/dL (8.4-10.2); Phosphorus 6.4 mg/dL (2.5-4.5)
[2019-12-09 06:30] LABS: Potassium 7.2 mmol/L (3.5-5.1)
[2019-12-09 06:50] LABS: Lymphocytes # (M) 38.28 k/uL (1.0-4.8); Neutrophils # (M) 5.22 k/uL (1.3-7.7); Neutrophils % (M) 12 %; Nucleated Red Blood Cells 0 /100 WBC (0-0); Total Cells Counted 100
[2019-12-09] MEDS ORDERED: HEPARIN SODIUM,PORCINE 5,000 UNIT/ML 1 ML VIAL ONE (07:35)
[2019-12-09] MEDS ORDERED: FUROSEMIDE 10 MG/ML 10 ML VIAL IV STA (08:29)
[2019-12-09] MEDS: PANTOPRAZOLE 40 MG/10 ML VIAL IV SCH (08:40)
--- NOTE | 2019-12-09 09:51 | P.NPCON ---
History of Present Illness - Reason for Consult acute renal failure, hyperkalemia - History of Present Illness reason for consultation: Acute kidney injury and hyperkalemia History of present illness: Patient is a 79-year-old female seen in renal consultation for acute kidney injury and hyperkalemia. Patient has chronic kidney disease stage III with baseline creatinine in the range of 1-1.5. patient has history of chronic CLL. She presented to the hospital with shortness of breath which was going on for about 2 weeks. She denies fever or chills. Patient is not a reliable historian. Creatinine on admission is 5.7. potassium level was 8.6 on admission and was medically treated with IV calcium, IV bicarb, IV Lasix, nebulized albuterol and IV insulin with D50. Repeat potassium level came down to 7.2. she was taking potassium supplement at home. She again received medical management and another repeat potassium level is pending. urine output has been 20-50 mL an hour. blood pressure in the systolic 90s to low 100s. Chest x-ray suggestive of fluid overload. Prior echocardiogram revealed preserved ejection fraction with severe pulmonary hypertension. patient is not a reliable historian. She is currently on BiPAP. she does have history of diabetes mellitus. Blood sugars stable. Vital signs are stable. General: The patient appeared well nourished and normally developed. HEENT: Head exam is unremarkable. Neck is without jugular venous distension. on BiPAP. LUNGS: Breath sounds decreased. HEART: Rate and Rhythm are regular. ABDOMEN: soft, obese. EXTREMITITES: trace edema. Past Medical History Past Medical History: Cancer, Heart Failure, COPD, Hyperlipidemia, Hypertension, Sleep Apnea/CPAP/BIPAP, Thyroid Disorder Additional Past Medical History / Comment(s): CLL. sleep apnea. macular degeneration. Skin ca History of Any Multi-Drug Resistant Organisms: None Reported Past Surgical History: Heart Catheterization With Stent, Tonsillectomy Additional Past Surgical History / Comment(s): d & c Past Anesthesia/Blood Transfusion Reactions: No Reported Reaction Date of Last Stent Placement:: 2007 Past Psychological History: No Psychological Hx Reported Smoking Status: Former smoker Past Alcohol Use History: Daily Past Drug Use History: None Reported - Past Family History Mother Family Medical History: Congestive Heart Failure (CHF) Father Family Medical History: No Reported History Additional Family Medical History / Comment(s): "Alcohol problems" Chirrosis Medications and Allergies Home Medications Medication Instructions Recorded Confirmed Type Arformoterol Tartrate [Brovana] 15 mcg INHALATION RT-BID 10/03/16 10/02/19 History Aspirin EC [Ecotrin Low Dose] 81 mg PO DAILY 10/03/16 10/02/19 History Clotrimazole/Betamethasone Dip 1 applic TOPICAL BID PRN 10/03/16 10/02/19 History [Lotrisone Cream] Fluticasone Nasal [place] [Flonase 1 spray EA NOSTRIL DAILY 10/03/16 10/02/19 History Nasal Warren] LORazepam [Ativan] 0.5 mg PO BID PRN 10/03/16 10/02/19 History Levothyroxine Sodium [Synthroid] 100 mcg PO DAILY 10/03/16 10/02/19 History Multivitamins, Thera [Multivitamin 1 tab PO DAILY 10/03/16 10/02/19 History (formulary)] Nitroglycerin Sl Tabs [Nitrostat] 0.4 mg SUBLINGUAL Q5M PRN 10/03/16 10/02/19 History Omeprazole [PriLOSEC] 20 mg PO DAILY 10/03/16 10/02/19 History Sennosides [Senna] 8.6 mg PO BID 10/03/16 10/02/19 History Vit C/E/Zn/Coppr/Lutein/Zeaxan 2 cap PO DAILY 10/03/16 10/02/19 History [Preservision Areds 2 Softgel] amLODIPine [Norvasc] 10 mg PO DAILY 10/03/16 10/02/19 History hydrALAZINE HCL 25 mg PO BID 10/03/16 10/02/19 History Atorvastatin [Lipitor] 40 mg PO HS 05/09/19 10/02/19 History Budesonide [Pulmicort] 0.5 mg INHALATION RT-BID 05/09/19 10/02/19 History Ezetimibe [Zetia] 10 mg PO DAILY 05/09/19 10/02/19 History Hydrocortisone Cream 1 applic TOPICAL QID PRN 05/09/19 10/02/19 History [Hydrocortisone 2.5% Cream] Levothyroxine Sodium [Synthroid] 50 mcg PO PADILLA 05/09/19 10/02/19 History Yupelri 175mcg/3ml 175 mcg INHALATION RT-DAILY 05/09/19 10/02/19 History carvediloL [Coreg] 6.25 mg PO BID 05/09/19 10/02/19 History Clopidogrel [Plavix] 75 mg PO DAILY #30 tab 05/11/19 10/02/19 Rx Isosorbide Mononitrate ER [Imdur] 30 mg PO DAILY #30 tab.er.24h 05/11/19 10/02/19 Rx Potassium Chloride ER [K-Dur 20] 20 meq PO DAILY 08/03/19 10/02/19 History Melatonin 3 mg PO HS PRN tablet 08/04/19 10/02/19 Rx Albuterol Inhaler [Ventolin Hfa 2 puff INHALATION RT-QID PRN 10/02/19 10/02/19 History Inhaler] Promethaz-Cod 6.25-10 mg/5 ml 5 ml PO Q6HR PRN 10/02/19 10/02/19 History [Phenergan with Codeine] metFORMIN HCL [Glucophage] 500 mg PO BID-W/MEALS 10/02/19 10/02/19 History predniSONE See Taper PO DAILY 10/02/19 10/02/19 History sitaGLIPtin PHOSPHATE [Januvia] 100 mg PO DAILY 10/02/19 10/02/19 History Escitalopram [Lexapro] 10 mg PO DAILY #10 tab 10/06/19 Rx Ipratropium-Albuterol Nebulize 3 ml INHALATION TID #90 ml 10/06/19 Rx [Duoneb 0.5 mg-3 mg/3 ml Soln] Torsemide [Demadex] 40 mg PO DAILY #30 tab 10/06/19 Rx Allergies Allergy/AdvReac Type Severity Reaction Status Date / Time No Known Allergies Allergy Verified 12/09/19 01:12 Physical Exam Vitals: Vital Signs Temp Pulse Resp BP Pulse Ox 12/09/19 08:00 90 12/09/19 07:40 80 12/09/19 07:00 110 H 18 102/58 87 L 12/09/19 06:20 87 14 87 L 12/09/19 06:10 80 18 84 L 12/09/19 06:00 74 15 105/88 86 L 12/09/19 05:50 79 18 95/45 88 L 12/09/19 05:40 97.9 F 75 16 112/62 85 L 12/09/19 04:53 97.5 F L 20 L 18 93/62 87 L 12/09/19 04:00 85 18 109/57 84 L 12/09/19 03:33 91 12/09/19 03:25 92 12/09/19 03:15 76 12/09/19 03:00 92 108/61 12/09/19 02:00 79 20 109/55 91 L 12/09/19 01:43 81 12/09/19 01:31 80 12/09/19 01:30 76 16 107/52 91 L 12/09/19 01:19 81 20 87 L 12/09/19 01:05 98.1 F 84 22 104/51 89 L Intake and Output 12/08/19 12/09/19 12/09/19 22:59 06:59 14:59 Output Total 500 Balance -500 Output: Urine 500 Uretheral (Boggs) 400 Other: Voiding Method Indwelling Catheter Weight 83.915 kg Results - Lab Results Most recent lab results ABG pH 7.29 (7.35-7.45) L 12/09/19 05:33 ABG pCO2 56 mmHg (35-45) H 12/09/19 05:33 ABG pO2 59 mmHg (83-108) L* 12/09/19 05:33 ABG HCO3 27 mmol/L (21-25) H 12/09/19 05:33 ABG O2 Saturation 88.4 % (94-97) L 12/09/19 05:33 Calcium 7.6 mg/dL (8.4-10.2) L 12/09/19 05:51 Phosphorus 6.4 mg/dL (2.5-4.5) H 12/09/19 05:51 12/09/19 05:51 12/09/19 05:51 Assessment and Plan Plan: assessment: 1. Acute kidney injury secondary to ATN. Etiology is multifactorial - hypotension, sepsis, possibly cardiorenal. Also concern for tumor lysis syndrome. Creatinine 5.7 to this morning. No proteinuria on UA. 2. Chronic kidney disease stage III secondary to nephrosclerosis with baseline creatinine in the range of 1-1.5. 3. Hyperkalemia secondary to acute kidney injury and potassium supplementation. Rule out tumor lysis. 4. History of CLL. Oncology following. 5. Volume overload. 6. Acute on chronic diastolic CHF with severe pulmonary hypertension. 7. Hyperphosphatemia secondary to acute kidney injury. plan: Lasix 80 mg IV once now. Start IV Lasix 60 mg twice daily this evening. Repeat potassium level pending. Repeat BMP again at 1 PM. Follow-up echocardiogram. Check uric acid level. follow-up cultures. Check renal ultrasound. continue to monitor renal function and urine output closely. If no improvement in the next 24-48 hours and remains persistently hyperkalemic, will initiate charo al replacement therapy.
[2019-12-09 09:52] LABS: Calcium 7.7 mg/dL (8.4-10.2)
--- NOTE | 2019-12-09 10:52 | US ---
EXAMINATION TYPE: US kidneys/renal and bladder DATE OF EXAM: 12/09/2019 COMPARISON: CT 11/06/19 CLINICAL HISTORY: kyle. EXAM MEASUREMENTS: Right Kidney: 10.7 x 5.4 x 5.0 cm Left Kidney: 12.0 x 5.8 x 5.0 cm Right Kidney: No hydronephrosis seen. Lower pole cyst = 1.5 x 1.2 x 1.0 Left Kidney: No hydronephrosis seen. Upper pole cyst = 1.9 x 2.0 x 1.5 cm Bladder: nondistended. Boggs catheter in place. Bilateral Jets seen: No There is no evidence for hydronephrosis at this point in time. No nephrolithiasis is seen. The urin francisca bladder is anechoic. Bilateral ureteral jets are seen. incidental finding of enlarged gallbladder with multiple stones, sludge and large polyp. IMPRESSION: 1. No hydronephrosis or nephrolithiasis. Hypoechoic nodules within the kidneys are indeterminate by u ltrasound but likely related to simple cysts. 2. Extensive cholelithiasis. 3. Reduced cortical medullary differentiation can be associated with chronic medical renal disease co rrelate clinically.
--- NOTE | 2019-12-09 10:58 | P.CRDCN ---
<Raeann Maria - Last Filed: 12/09/19 10:44> History of Present Illness History of present illness: HISTORY OF PRESENTING ILLNESS This is a pleasant 79-year-old female past medical history significant for coronary artery disease status post PCI in 2004 according to the patient, CLL, hypertension, dyslipidemia, COPD and obstructive sleep apnea. She follows in the office with Dr. Burns at [facility]. We have been asked to see in consultation for CHF. She presented to the hospital secondary to shortness of breath. She states for the previous 2 weeks she has been increasingly short of breath with poor oral intake secondary to no appetite. She denies symptoms of chest pain, dizziness, orthopnea or palpitations. Chest x-ray on admission reveals congestive heart failure with pleural fluid were since previous exam with blunting of the costophrenic angles. EKG reveals sinus mechanism with first-degree A-V block, intraventricular conduction delay and nonspecific inferior abnormalities. Laboratory data reviewed, WBC 43.5, hemoglobin 7.5, platelets 63, sodium 138, potassium 7, creatinine 5.63, troponin 0.132 and 0.109. NT proBNP 46,800. ABG reveals a pH of 7.29, pCO2 of 56, bicar b of 27 and O2 saturations 88. She is currently on BiPAP. Current daily cardiac medications include aspirin 81 mg daily, atorvastatin 40 mg at bedtime, Plavix 75 mg daily, Zetia 10 mg daily, Imdur 30 mg daily, torsemide 40 mg daily, amlodipine 10 mg daily, carvedilol 6.25 mg twice a day and hydralazine 25 mg twice a day. Nephrology is following closely, correcting the potassium. Most recent echocardiogram obtained May 2019 revealed preserved LV systolic function with ejection fraction 55-60%, moderate LVH, grade 2 diastolic dysfunction, mild to moderate MR, moderate to severe TR and severe pulmonary hypertension with an RVSP of 62 mmHg. REVIEW OF SYSTEMS At the time of my exam: CONSTITUTIONAL: Denies fever or chills. CARDIOVASCULAR: Complains of shortness of breath. Denies chest pain, orthopnea, PND or palpitations. RESPIRATORY: Denies cough. GASTROINTESTINAL: Denies abdominal pain, diarrhea, constipation, nausea or vomiting. MUSCULOSKELETAL: Denies myalgias. NEUROLOGIC: Denies numbness, tingling or weakness. ENDOCRINE: Denies fatigue, weight change, polydipsia or polyurina. GENITOURINARY: Denies burning, hematuria or urgency with micturation. HEMATOLOGIC: Denies history of anemia or bleeding. PHYSICAL EXAMINATION Blood pressure 102/58 heart rate 90 afebrile and maintaining oxygen saturation on BiPAP. CONSTITUTIONAL: No apparent distress. Obese. HEENT: Head is normocephalic. Pupils are equal, round. Sclerae anicteric. Mucous membranes of the mouth are moist. No JVD. No carotid bruit. CHEST EXAMINATION: Lungs are clear to auscultation. No chest wall tenderness is noted on palpation or with deep breathing. HEART EXAMINATION: Regular rate and rhythm. S1, S2 heard. No murmurs, gallops or rub. Diminished bilaterally. ABDOMEN: Soft, nontender. Positive bowel sounds. EXTREMITIES: 2+ peripheral pulses, no lower extremity edema and no calf tenderness. NEUROLOGIC EXAMINATION: Patient is awake, alert and oriented x3. ASSESSMENT Fluid overload secondary to acute kidney injury Acute on chronic diastolic heart failure Hyperkalemia Acute kidney injury Hypertension Dyslipidemia COPD Pulmonary hypertension Coronary artery disease status post PCI, exact details unavailable PLAN Repeat 2-D echocardiogram and Doppler study to assess cardiac structure and function. IV Lasix per nephrology. 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 Resume aspirin, atorvastatin and zetia. Hold anti-hypertensives given borderline blood pressures. Further recommendations to follow based on clinical course. Thank you kindly for this consultation. Nurse Practitioner note has been reviewed, I agree with a documented findings and plan of care. Patient was seen and examined. Past Medical History Past Medical History: Cancer, Heart Failure, COPD, Hyperlipidemia, Hypertension, Sleep Apnea/CPAP/BIPAP, Thyroid Disorder Additional Past Medical History / Comment(s): CLL. sleep apnea. macular d egeneration. Skin ca History of Any Multi-Drug Resistant Organisms: None Reported Past Surgical History: Heart Catheterization With Stent, Tonsillectomy Additional Past Surgical History / Comment(s): d & c Past Anesthesia/Blood Transfusion Reactions: No Reported Reaction Date of Last Stent Placement:: 2007 Past Psychological History: No Psychological Hx Reported Smoking Status: Former smoker Past Alcohol Use History: Daily Past Drug Use History: None Reported - Past Family History Mother Family Medical History: Congestive Heart Failure (CHF) Father Family Medical History: No Reported History Additional Family Medical History / Comment(s): "Alcohol problems" Chirrosis Medications and Allergies Home Medications Medication Instructions Recorded Confirmed Type Arformoterol Tartrate [Brovana] 15 mcg INHALATION RT-BID 10/03/16 12/09/19 History Aspirin EC [Ecotrin Low Dose] 81 mg PO DAILY 10/03/16 12/09/19 History LORazepam [Ativan] 0.5 mg PO BID PRN 10/03/16 12/09/19 History Levothyroxine Sodium [Synthroid] 100 mcg PO DAILY 10/03/16 12/09/19 History Multivitamins, Thera [Multivitamin 1 tab PO DAILY 10/03/16 12/09/19 History (formulary)] Nitroglycerin Sl Tabs [Nitrostat] 0.4 mg SUBLINGUAL Q5M PRN 10/03/16 12/09/19 History Omeprazole [PriLOSEC] 20 mg PO DAILY 10/03/16 12/09/19 History Vit C/E/Zn/Coppr/Lutein/Zeaxan 1 cap PO BID 10/03/16 12/09/19 History [Preservision Areds 2 Softgel] amLODIPine [Norvasc] 10 mg PO DAILY 10/03/16 12/09/19 History hydrALAZINE HCL 25 mg PO BID 10/03/16 12/09/19 History Atorvastatin [Lipitor] 40 mg PO HS 05/09/19 12/09/19 History Budesonide [Pulmicort] 0.5 mg INHALATION RT-BID 05/09/19 12/09/19 History Ezetimibe [Zetia] 10 mg PO DAILY 05/09/19 12/09/19 History Levothyroxine Sodium [Synthroid] 50 mcg PO PADILLA 05/09/19 12/09/19 History Yupelri 175mcg/3ml 175 mcg INHALATION RT-DAILY 05/09/19 12/09/19 History carvediloL [Coreg] 6.25 mg PO BID 05/09/19 12/09/19 History Clopidogrel [Plavix] 75 mg PO DAILY #30 tab 05/11/19 12/09/19 Rx Isosorbide Mononitrate ER [Imdur] 30 mg PO DAILY #30 tab.er.24h 05/11/19 12/09/19 Rx Potassium Chloride ER [K-Dur 20] 20 meq PO DAILY 08/03/19 12/09/19 History Melatonin 3 mg PO HS PRN tablet 08/04/19 12/09/19 Rx Albuterol Inhaler [Ventolin Hfa 2 puff INHALATION RT-QID PRN 10/02/19 12/09/19 History Inhaler] Promethaz-Cod 6.25-10 mg/5 ml 5 ml PO Q6HR PRN 10/02/19 12/09/19 History [Phenergan with Codeine] metFORMIN HCL [Glucophage] 500 mg PO BID-W/MEALS 10/02/19 12/09/19 History sitaGLIPtin PHOSPHATE [Januvia] 100 mg PO DAILY 10/02/19 12/09/19 History Escitalopram [Lexapro] 10 mg PO DAILY #10 tab 10/06/19 12/09/19 Rx Torsemide [Demadex] 40 mg PO DAILY #30 tab 10/06/19 12/09/19 Rx Loratadine [Claritin] 10 mg PO DAILY 12/09/19 12/09/19 History predniSONE [Deltasone] 20 mg PO BID 12/09/19 12/09/19 History Allergies Allergy/AdvReac Type Severity Reaction Status Date / Time No Known Allergies Allergy Verified 12/09/19 12:25 Physical Exam Vitals: Vital Signs Temp Pulse Resp BP Pulse Ox 12/09/19 08:00 90 12/09/19 07:40 80 12/09/19 07:00 110 H 18 102/58 87 L 12/09/19 06:20 87 14 87 L 12/09/19 06:10 80 18 84 L 12/09/19 06:00 74 15 105/88 86 L 12/09/19 05:50 79 18 95/45 88 L 12/09/19 05:40 97.9 F 75 16 112/62 85 L 12/09/19 04:53 97.5 F L 20 L 18 93/62 87 L 12/09/19 04:00 85 18 109/57 84 L 12/09/19 03:33 91 12/09/19 03:25 92 12/09/19 03:15 76 12/09/19 03:00 92 108/61 12/09/19 02:00 79 20 109/55 91 L 12/09/19 01:43 81 12/09/19 01:31 80 10/05/20 01:30 76 16 107/52 91 L 12/09/19 01:19 81 20 87 L 12/09/19 01:05 98.1 F 84 22 104/51 89 L Intake and Output 12/08/19 12/09/19 12/09/19 22:59 06:59 14:59 Output Total 500 Balance -500 Output: Urine 500 Uretheral (Boggs) 400 Other: Voiding Method Indwelling Catheter Weight 83.915 kg Results 12/09/19 05:51 12/09/19 09:18 Cardiac Enzymes 12/09/19 12/09/19 12/09/19 Range/Units 01:36 01:36 05:53 AST 21 (14-36) U/L Troponin I 0.132 H* 0.109 H* (0.000-0.034) ng/mL Coagulation 12/09/19 Range/Units 01:36 PT 10.8 (9.0-12.0) sec APTT 21.1 L (22.0-30.0) sec CBC 12/09/19 12/09/19 Range/Units 01:36 05:51 WBC 51.8 H* 43.5 H (3.8-10.6) k/uL RBC 2.44 L 2.32 L (3.80-5.40) m/uL Hgb 8.1 L 7.5 L (11.4-16.0) gm/dL Hct 26.2 L 25.1 L (34.0-46.0) % Plt Count 69 L 63 L (150-450) k/uL Comprehensive Metabolic Panel 12/09/19 12/09/19 12/09/19 Range/Units 01:36 03:48 05:51 Sodium 134 L 138 (137-145) mmol/L Potassium 8.6 H* 7.3 H* 7.2 H* (3.5-5.1) mmol/L Chloride 95 L 99 (98-107) mmol/L Carbon Dioxide 26 27 (22-30) mmol/L BUN 160 H* 150 H* (7-17) mg/dL Creatinine 5.73 H 5.72 H (0.52-1.04) mg/dL Glucose 167 H 133 H (74-99) mg/dL Calcium 8.0 L 7.6 L (8.4-10.2) mg/dL AST 21 (14-36) U/L ALT 19 (4-34) U/L Alkaline Phosphatase 46 (38-126) U/L Total Protein 5.8 L (6.3-8.2) g/dL Albumin 3.8 (3.5-5.0) g/dL Current Medications Generic Name Dose Route Start Last Admin Trade Name Freq PRN Reason Stop Dose Admin Albuterol/Ipratropium 3 ml 12/09/19 04:00 12/09/19 07:40 Ipratropium-Albuterol 3 Ml Neb INHALATION 3 ml RT-Q4H JACK Administration Furosemide 60 mg 12/09/19 21:00 Furosemide 10 Mg/Ml 10 Ml Vial IV Q12HR JACK Morphine Sulfate 4 mg 12/09/19 03:19 12/09/19 04:00 Morphine Sulfate 4 Mg/Ml Syringe IV 4 mg Q2HR PRN Administration Pain Scale 8 to 9 Naloxone HCl 0.2 mg 12/09/19 03:19 Naloxone 0.4 Mg/Ml 1 Ml Vial IV Q2M PRN Opioid Reversal Pantoprazole Sodium 40 mg 12/09/19 09:00 12/09/19 08:40 Pantoprazole 40 Mg/10 Ml Vial IV 40 mg DAILY JACK Administration Intake and Output 12/08/19 12/09/19 12/09/19 22:59 06:59 14:59 Output Total 500 Balance -500 Output: Urine 500 Uretheral (Boggs) 400 Other: Voiding Method Indwelling Catheter Weight 83.915 kg 12/09/19 05:51 12/09/19 05:51 <Jose Flores - Last Filed: 12/09/19 13:50> History of Present Illness History of present illness: No significant EKG changes with severe hyperkalemia. Nephrology recommendations appreciated regarding hyperkalemia and possible dialysis. If any electrical instability, would recommend IV calcium. Majority of symptoms appear related to CARLOS with recent decrease appetite, SOB. Monitor BP and avoid hypotension. Recheck echo. Physical Exam Vitals: Vital Signs Temp Pulse Resp BP Pulse Ox 12/09/19 13:00 82 13 92/50 90 L 12/09/19 12:30 79 15 107/53 88 L 12/09/19 12:00 98.6 F 80 15 94/50 87 L 12/09/19 11:46 64 12/09/19 11:33 75 10/05/20 11:30 73 14 91/50 89 L 12/09/19 11:00 70 16 92/50 86 L 12/09/19 10:30 73 13 86/50 87 L 12/09/19 10:00 71 15 98/62 88 L 12/09/19 09:30 57 H 107/57 90 L 12/09/19 09:00 91 17 111/62 90 L 12/09/19 08:30 90 16 102/75 92 L 12/09/19 08:00 97.2 F L 93 15 102/75 93 L 12/09/19 07:40 80 12/09/19 07:00 110 H 18 102/58 87 L 12/09/19 06:20 87 14 87 L 12/09/19 06:10 80 18 84 L 12/09/19 06:00 74 15 105/88 86 L 12/09/19 05:50 79 18 95/45 88 L 12/09/19 05:40 97.9 F 75 16 112/62 85 L 12/09/19 04:53 97.5 F L 20 L 18 93/62 87 L 12/09/19 04:00 85 18 109/57 84 L 12/09/19 03:33 91 12/09/19 03:25 92 12/09/19 03:15 76 12/09/19 03:00 92 108/61 12/09/19 02:00 79 20 109/55 91 L 12/09/19 01:43 81 12/09/19 01:31 80 12/09/19 01:30 76 16 107/52 91 L 12/09/19 01:19 81 20 87 L 12/09/19 01:05 98.1 F 84 22 104/51 89 L Intake and Output 12/08/19 12/09/19 12/09/19 22:59 06:59 14:59 Output Total 500 Balance -500 Output: Urine 500 Uretheral (Boggs) 400 Other: Voiding Method Indwelling Catheter Weight 83.915 kg 83.915 kg Results 12/09/19 05:51 12/09/19 09:18 Cardiac Enzymes 12/09/19 12/09/19 12/09/19 Range/Units 01:36 01:36 05:53 AST 21 (14-36) U/L Troponin I 0.132 H* 0.109 H* (0.000-0.034) ng/mL Coagulation 12/09/19 Range/Units 01:36 PT 10.8 (9.0-12.0) sec APTT 21.1 L (22.0-30.0) sec CBC 12/09/19 12/09/19 Range/Units 01:36 05:51 WBC 51.8 H* 43.5 H (3.8-10.6) k/uL RBC 2.44 L 2.32 L (3.80-5.40) m/uL Hgb 8.1 L 7.5 L (11.4-16.0) gm/dL Hct 26.2 L 25.1 L (34.0-46.0) % Plt Count 69 L 63 L (150-450) k/uL Comprehensive Metabolic Panel 12/09/19 12/09/19 12/09/19 Range/Units 01:36 03:48 05:51 Sodium 134 L 138 (137-145) mmol/L Potassium 8.6 H* 7.3 H* 7.2 H* (3.5-5.1) mmol/L Chloride 95 L 99 (98-107) mmol/L Carbon Dioxide 26 27 (22-30) mmol/L BUN 160 H* 150 H* (7-17) mg/dL Creatinine 5.73 H 5.72 H (0.52-1.04) mg/dL Glucose 167 H 133 H (74-99) mg/dL Calcium 8.0 L 7.6 L (8.4-10.2) mg/dL AST 21 (14-36) U/L ALT 19 (4-34) U/L Alkaline Phosphatase 46 (38-126) U/L Total Protein 5.8 L (6.3-8.2) g/dL Albumin 3.8 (3.5-5.0) g/dL 12/09/19 Range/Units 09:18 Sodium 138 (137-145) mmol/L Potassium 7.0 H* (3.5-5.1) mmol/L Chloride 98 (98-107) mmol/L Carbon Dioxide 31 H (22-30) mmol/L BUN 154 H* (7-17) mg/dL Creatinine 5.63 H (0.52-1.04) mg/dL Glucose 137 H (74-99) mg/dL Calcium 7.7 L (8.4-10.2) mg/dL AST (14-36) U/L ALT (4-34) U/L Alkaline Phosphatase (38-126) U/L Total Protein (6.3-8.2) g/dL Albumin (3.5-5.0) g/dL Current Medications Generic Name Dose Route Start Last Admin Trade Name Freq PRN Reason Stop Dose Admin Albuterol/Ipratropium 3 ml 12/09/19 04:00 12/09/19 11:33 Ipratropium-Albuterol 3 Ml Neb INHALATION 3 ml RT-Q4H JACK Administration Aspirin 81 mg 12/09/19 09:00 12/09/19 12:45 Aspirin 81 Mg PO 81 mg DAILY JACK Administration Atorvastatin Calcium 40 mg 12/09/19 21:00 Atorvastatin 40 Mg Tab PO HS JACK Ezetimibe 10 mg 12/09/19 11:15 12/09/19 12:45 Ezetimibe 10 Mg Tab PO 10 mg DAILY JACK Administration Furosemide 60 mg 12/09/19 21:00 Furosemide 10 Mg/Ml 10 Ml Vial IV Q12HR JACK Ceftriaxone Sodium 1 gm/ 50 mls @ 100 mls/hr 12/10/19 09:00 Sodium Chloride IVPB Q24HR JACK Midodrine 10 mg 12/09/19 13:36 Midodrine 5 Mg Tab PO AC-BID PRN Hypotension Morphine Sulfate 4 mg 12/09/19 03:19 12/09/19 04:00 Morphine Sulfate 4 Mg/Ml Syringe IV 4 mg Q2HR PRN Administration Pain Scale 8 to 9 Naloxone HCl 0.2 mg 12/09/19 03:19 Naloxone 0.4 Mg/Ml 1 Ml Vial IV Q2M PRN Opioid Reversal Pantoprazole Sodium 40 mg 12/09/19 09:00 12/09/19 08:40 Pantoprazole 40 Mg/10 Ml Vial IV 40 mg DAILY JACK Administration Intake and Output 12/08/19 12/09/19 12/09/19 22:59 06:59 14:59 Output Total 500 Balance -500 Output: Urine 500 Uretheral (Boggs) 400 Other: Voiding Method Indwelling Catheter Weight 83.915 kg 83.915 kg Patient Weight 12/10/19 06:59 Weight 83.915 kg 12/09/19 05:51 12/09/19 09:18
[2019-12-09] MEDS ORDERED: HYDROmorphone 0.5 MG/0.5 ML SYRINGE IVP STA (12:06)
[2019-12-09] MEDS ORDERED: LIDOCAINE 1% INJ 10MG/ML (20 ML MDV) ONE (12:10)
[2019-12-09] MEDS: EZETIMIBE 10 MG TAB PO SCH (12:45)
[2019-12-09] MEDS: ASPIRIN 81 MG PO SCH (12:45)
--- NOTE | 2019-12-09 13:15 | ECHOF ---
Referral Reason:elev trop, MEASUREMENTS -------- HEIGHT: 165.1 cm WEIGHT: 83.9 kg BP: 92/50 RVIDd: 4.0 cm (< 3.3) IVSd: 1.4 cm (0.6 - 1.1) LVIDd: 4.7 cm (3.9 - 5.3) LVPWd: 1.3 cm (0.6 - 1.1) IVSs: 1.7 cm LVIDs: 3.3 cm LVPWs: 1.7 cm LA Diam: 4.0 cm (2.7 - 3.8) LAESV Index (A-L): 33.61 ml/m Ao Diam: 3.6 cm (2.0 - 3.7) AV Cusp: 1.9 cm (1.5 - 2.6) MV EXCURSION: 17.007 mm (> 18.000) MV EF SLOPE: 67 mm/s (70 - 150) EPSS: 0.7 cm RAP: 15.00 mmHg RVSP: 61.26 mmHg FINDINGS -------- Atrial fibrillation. This was a technically difficult study with suboptimal apical views. The left ventricular size is normal. There is moderate concentric left ventricular hypertrophy. O verall left ventricular systolic function is low-normal with, an EF between 50 - 55 %. The right ventricle is moderately enlarged. LA is midly dilated 29-33ml/m2. The right atrium is normal in size. 1.5mg of Definity was utilized for enhancement of images Interatrial and interventricular septum intact. There is mild aortic valve sclerosis. Mild mitral annular calcification present. There is trace mitral regurgitation. Moderate to severe tricuspid regurgitation present. There is severe pulmonary hypertension. The r ight ventricular systolic pressure, as measured by Doppler, is 61.26mmHg. Trace/mild (physiologic) pulmonic regurgitation. The aortic root size is normal. The inferior vena cava is dilated with no significant inspiratory collapse which is consistent estima tiffani right atrial pressure of >15 mmHg. There is no pericardial effusion. CONCLUSIONS -------- 1. The left ventricular size is normal. 2. There is moderate concentric left ventricular hypertrophy. 3. Overall left ventricular systolic function is low-normal with, an EF between 50 - 55 %. 4. The right ventricle is moderately enlarged. 5. LA is midly dilated 29-33ml/m2. 6. 1.5mg of Definity was utilized for enhancement of images 7. There is mild aortic valve sclerosis. 8. Mild mitral annular calcification present. 9. There is trace mitral regurgitation. 10. Moderate to severe tricuspid regurgitation present. 11. There is severe pulmonary hypertension. 12. The right ventricular systolic pressure, as measured by Doppler, is 61.26mmHg. 13. Trace/mild (physiologic) pulmonic regurgitation. 14. The inferior vena cava is dilated with no significant inspiratory collapse which is consistent es timated right atrial pressure of >15 mmHg. 15. There is no pericardial effusion. [employer]ER: Bhavna Hinojosa RDCS
--- NOTE | 2019-12-09 13:15 | P.GSCN ---
History of Present Illness History of present illness: 79-year-old white female patient was seen in consultation for urgent replacement of dialysis catheter. Patient has history of 4 hypertension, COPD, sleep apnea, patient also has a high potassium Neck examination neck is supple no bruit appreciated Chest has crackles bilateral pulses second sound present Abdomen soft nontender Vascular femorals are palpable bilateral plan is placement of dialysis catheter risk and complication discussed Past Medical History Past Medical History: Cancer, Heart Failure, COPD, Hyperlipidemia, Hypertension, Sleep Apnea/CPAP/BIPAP, Thyroid Disorder Additional Past Medical History / Comment(s): CLL. sleep apnea. macular degeneration. Skin ca History of Any Multi-Drug Resistant Organisms: None Reported Past Surgical History: Heart Catheterization With Stent, Tonsillectomy Additional Past Surgical History / Comment(s): d & c Past Anesthesia/Blood Transfusion Reactions: No Reported Reaction Date of Last Stent Placement:: 2007 Past Psychological History: No Psychological Hx Reported Smoking Status: Former smoker Past Alcohol Use History: Daily Past Drug Use History: None Reported - Past Family History Mother Family Medical History: Congestive Heart Failure (CHF) Father Family Medical History: No Reported History Additional Family Medical History / Comment(s): "Alcohol problems" Chirrosis Medications and Allergies Home Medications Medication Instructions Recorded Confirmed Type Arformoterol Tartrate [Brovana] 15 mcg INHALATION RT-BID 10/03/16 12/09/19 History Aspirin EC [Ecotrin Low Dose] 81 mg PO DAILY 10/03/16 12/09/19 History LORazepam [Ativan] 0.5 mg PO BID PRN 10/03/16 12/09/19 History Levothyroxine Sodium [Synthroid] 100 mcg PO DAILY 10/03/16 12/09/19 History Multivitamins, Thera [Multivitamin 1 tab PO DAILY 10/03/16 12/09/19 History (formulary)] Nitroglycerin Sl Tabs [Nitrostat] 0.4 mg SUBLINGUAL Q5M PRN 10/03/16 12/09/19 History Omeprazole [PriLOSEC] 20 mg PO DAILY 10/03/16 12/09/19 History Vit C/E/Zn/Coppr/Lutein/Zeaxan 1 cap PO BID 10/03/16 12/09/19 History [Preservision Areds 2 Softgel] amLODIPine [Norvasc] 10 mg PO DAILY 10/03/16 12/09/19 History hydrALAZINE HCL 25 mg PO BID 10/03/16 12/09/19 History Atorvastatin [Lipitor] 40 mg PO HS 05/09/19 12/09/19 History Budesonide [Pulmicort] 0.5 mg INHALATION RT-BID 05/09/19 12/09/19 History Ezetimibe [Zetia] 10 mg PO DAILY 05/09/19 12/09/19 History Levothyroxine Sodium [Synthroid] 50 mcg PO PADILLA 05/09/19 12/09/19 History Yupelri 175mcg/3ml 175 mcg INHALATION RT-DAILY 05/09/19 12/09/19 History carvediloL [Coreg] 6.25 mg PO BID 05/09/19 12/09/19 History Clopidogrel [Plavix] 75 mg PO DAILY #30 tab 05/11/19 12/09/19 Rx Isosorbide Mononitrate ER [Imdur] 30 mg PO DAILY #30 tab.er.24h 05/11/19 12/09/19 Rx Potassium Chloride ER [K-Dur 20] 20 meq PO DAILY 08/03/19 12/09/19 History Melatonin 3 mg PO HS PRN tablet 08/04/19 12/09/19 Rx Albuterol Inhaler [Ventolin Hfa 2 puff INHALATION RT-QID PRN 10/02/19 12/09/19 History Inhaler] Promethaz-Cod 6.25-10 mg/5 ml 5 ml PO Q6HR PRN 10/02/19 12/09/19 History [Phenergan with Codeine] metFORMIN HCL [Glucophage] 500 mg PO BID-W/MEALS 10/02/19 12/09/19 History sitaGLIPtin PHOSPHATE [Januvia] 100 mg PO DAILY 10/02/19 12/09/19 History Escitalopram [Lexapro] 10 mg PO DAILY #10 tab 10/06/19 12/09/19 Rx Torsemide [Demadex] 40 mg PO DAILY #30 tab 10/06/19 12/09/19 Rx Loratadine [Claritin] 10 mg PO DAILY 12/09/19 12/09/19 History predniSONE [Deltasone] 20 mg PO BID 12/09/19 12/09/19 History Allergies Allergy/AdvReac Type Severity Reaction Status Date / Time No Known Allergies Allergy Verified 12/09/19 12:25 Surgical - Exam Vital Signs Temp Pulse Resp BP Pulse Ox 98.1 F 84 22 104/51 89 L 12/09/19 01:05 12/09/19 01:05 12/09/19 01:05 12/09/19 01:05 12/09/19 01:05 Results - Labs 12/09/19 05:51 12/09/19 09:18 Abnormal Lab Results - Last 24 Hours (Table) 12/09/19 12/09/19 12/09/19 Range/Units 01:36 01:36 01:36 WBC 51.8 H* (3.8-10.6) k/uL RBC 2.44 L (3.80-5.40) m/uL Hgb 8.1 L (11.4-16.0) gm/dL Hct 26.2 L (34.0-46.0) % MCV 107.4 H (80.0-100.0) fL MCHC 30.8 L (31.0-37.0) g/dL Plt Count 69 L (150-450) k/uL Neutrophils # (Manual) 1.04 L (1.3-7.7) k/uL Lymphocytes # (Manual) 50.25 H (1.0-4.8) k/uL Macrocytosis APTT 21.1 L (22.0-30.0) sec ABG pH (7.35-7.45) ABG pCO2 (35-45) mmHg ABG pO2 (83-108) mmHg ABG HCO3 (21-25) mmol/L ABG Total CO2 (19-24) mmol/L ABG O2 Saturation (94-97) % Sodium 134 L (137-145) mmol/L Potassium 8.6 H* (3.5-5.1) mmol/L Chloride 95 L (98-107) mmol/L Carbon Dioxide (22-30) mmol/L BUN 160 H* (7-17) mg/dL Creatinine 5.73 H (0.52-1.04) mg/dL Glucose 167 H (74-99) mg/dL POC Glucose (mg/dL) (75-99) mg/dL Plasma Lactic Acid Charles (0.7-2.0) mmol/L Uric Acid (3.7-7.4) mg/dL Calcium 8.0 L (8.4-10.2) mg/dL Phosphorus (2.5-4.5) mg/dL Troponin I (0.000-0.034) ng/mL Total Protein 5.8 L (6.3-8.2) g/dL Urine Appearance (Clear) Ur Leukocyte Esterase (Negative) Urine WBC (0-5) /hpf Urine WBC Clumps (None) /hpf Urine Bacteria (None) /hpf Urine Mucus (None) /hpf 12/09/19 12/09/19 12/09/19 Range/Units 01:36 01:36 03:48 WBC (3.8-10.6) k/uL RBC (3.80-5.40) m/uL Hgb (11.4-16.0) gm/dL Hct (34.0-46.0) % MCV (80.0-100.0) fL MCHC (31.0-37.0) g/dL Plt Count (150-450) k/uL Neutrophils # (Manual) (1.3-7.7) k/uL Lymphocytes # (Manual) (1.0-4.8) k/uL Macrocytosis APTT (22.0-30.0) sec ABG pH (7.35-7.45) ABG pCO2 (35-45) mmHg ABG pO2 (83-108) mmHg ABG HCO3 (21-25) mmol/L ABG Total CO2 (19-24) mmol/L ABG O2 Saturation (94-97) % Sodium (137-145) mmol/L Potassium (3.5-5.1) mmol/L Chloride (98-107) mmol/L Carbon Dioxide (22-30) mmol/L BUN (7-17) mg/dL Creatinine (0.52-1.04) mg/dL Glucose (74-99) mg/dL POC Glucose (mg/dL) (75-99) mg/dL Plasma Lactic Acid Charles 3.3 H* (0.7-2.0) mmol/L Uric Acid (3.7-7.4) mg/dL Calcium (8.4-10.2) mg/dL Phosphorus (2.5-4.5) mg/dL Troponin I 0.132 H* (0.000-0.034) ng/mL Total Protein (6.3-8.2) g/dL Urine Appearance Cloudy H (Clear) Ur Leukocyte Esterase Large H (Negative) Urine WBC 34 H (0-5) /hpf Urine WBC Clumps Few H (None) /hpf Urine Bacteria Few H (None) /hpf Urine Mucus Many H (None) /hpf 12/09/19 12/09/19 12/09/19 Range/Units 03:48 05:26 05:33 WBC (3.8-10.6) k/uL RBC (3.80-5.40) m/uL Hgb (11.4-16.0) gm/dL Hct (34.0-46.0) % MCV (80.0-100.0) fL MCHC (31.0-37.0) g/dL Plt Count (150-450) k/uL Neutrophils # (Manual) (1.3-7.7) k/uL Lymphocytes # (Manual) (1.0-4.8) k/uL Macrocytosis APTT (22.0-30.0) sec ABG pH 7.29 L (7.35-7.45) ABG pCO2 56 H (35-45) mmHg ABG pO2 59 L* (83-108) mmHg ABG HCO3 27 H (21-25) mmol/L ABG Total CO2 29 H (19-24) mmol/L ABG O2 Saturation 88.4 L (94-97) % Sodium (137-145) mmol/L Potassium 7.3 H* (3.5-5.1) mmol/L Chloride (98-107) mmol/L Carbon Dioxide (22-30) mmol/L BUN (7-17) mg/dL Creatinine (0.52-1.04) mg/dL Glucose (74-99) mg/dL POC Glucose (mg/dL) 168 H (75-99) mg/dL Plasma Lactic Acid Charles (0.7-2.0) mmol/L Uric Acid (3.7-7.4) mg/dL Calcium (8.4-10.2) mg/dL Phosphorus (2.5-4.5) mg/dL Troponin I (0.000-0.034) ng/mL Total Protein (6.3-8.2) g/dL Urine Appearance (Clear) Ur Leukocyte Esterase (Negative) Urine WBC (0-5) /hpf Urine WBC Clumps (None) /hpf Urine Bacteria (None) /hpf Urine Mucus (None) /hpf 12/09/19 12/09/19 12/09/19 Range/Units 05:51 05:51 05:51 WBC 43.5 H (3.8-10.6) k/uL RBC 2.32 L (3.80-5.40) m/uL Hgb 7.5 L (11.4-16.0) gm/dL Hct 25.1 L (34.0-46.0) % MCV 108.5 H (80.0-100.0) fL MCHC 29.9 L (31.0-37.0) g/dL Plt Count 63 L (150-450) k/uL Neutrophils # (Manual) (1.3-7.7) k/uL Lymphocytes # (Manual) 38.28 H (1.0-4.8) k/uL Macrocytosis Marked A APTT (22.0-30.0) sec ABG pH (7.35-7.45) ABG pCO2 (35-45) mmHg ABG pO2 (83-108) mmHg ABG HCO3 (21-25) mmol/L ABG Total CO2 (19-24) mmol/L ABG O2 Saturation (94-97) % Sodium (137-145) mmol/L Potassium 7.2 H* (3.5-5.1) mmol/L Chloride (98-107) mmol/L Carbon Dioxide (22-30) mmol/L BUN 150 H* (7-17) mg/dL Creatinine 5.72 H (0.52-1.04) mg/dL Glucose 133 H (74-99) mg/dL POC Glucose (mg/dL) (75-99) mg/dL Plasma Lactic Acid Charles 3.7 H* (0.7-2.0) mmol/L Uric Acid (3.7-7.4) mg/dL Calcium 7.6 L (8.4-10.2) mg/dL Phosphorus 6.4 H (2.5-4.5) mg/dL Troponin I (0.000-0.034) ng/mL Total Protein (6.3-8.2) g/dL Urine Appearance (Clear) Ur Leukocyte Esterase (Negative) Urine WBC (0-5) /hpf Urine WBC Clumps (None) /hpf Urine Bacteria (None) /hpf Urine Mucus (None) /hpf 12/09/19 12/09/19 12/09/19 Range/Units 05:53 09:18 09:18 WBC (3.8-10.6) k/uL RBC (3.80-5.40) m/uL Hgb (11.4-16.0) gm/dL Hct (34.0-46.0) % MCV (80.0-100.0) fL MCHC (31.0-37.0) g/dL Plt Count (150-450) k/uL Neutrophils # (Manual) (1.3-7.7) k/uL Lymphocytes # (Manual) (1.0-4.8) k/uL Macrocytosis APTT (22.0-30.0) sec ABG pH (7.35-7.45) ABG pCO2 (35-45) mmHg ABG pO2 (83-108) mmHg ABG HCO3 (21-25) mmol/L ABG Total CO2 (19-24) mmol/L ABG O2 Saturation (94-97) % Sodium (137-145) mmol/L Potassium 7.0 H* (3.5-5.1) mmol/L Chloride (98-107) mmol/L Carbon Dioxide 31 H (22-30) mmol/L BUN 154 H* (7-17) mg/dL Creatinine 5.63 H (0.52-1.04) mg/dL Glucose 137 H (74-99) mg/dL POC Glucose (mg/dL) (75-99) mg/dL Plasma Lactic Acid Charles 3.1 H* (0.7-2.0) mmol/L Uric Acid (3.7-7.4) mg/dL Calcium 7.7 L (8.4-10.2) mg/dL Phosphorus (2.5-4.5) mg/dL Troponin I 0.109 H* (0.000-0.034) ng/mL Total Protein (6.3-8.2) g/dL Urine Appearance (Clear) Ur Leukocyte Esterase (Negative) Urine WBC (0-5) /hpf Urine WBC Clumps (None) /hpf Urine Bacteria (None) /hpf Urine Mucus (None) /hpf 12/09/19 Range/Units 09:18 WBC (3.8-10.6) k/uL RBC (3.80-5.40) m/uL Hgb (11.4-16.0) gm/dL Hct (34.0-46.0) % MCV (80.0-100.0) fL MCHC (31.0-37.0) g/dL Plt Count (150-450) k/uL Neutrophils # (Manual) (1.3-7.7) k/uL Lymphocytes # (Manual) (1.0-4.8) k/uL Macrocytosis APTT (22.0-30.0) sec ABG pH (7.35-7.45) ABG pCO2 (35-45) mmHg ABG pO2 (83-108) mmHg ABG HCO3 (21-25) mmol/L ABG Total CO2 (19-24) mmol/L ABG O2 Saturation (94-97) % Sodium (137-145) mmol/L Potassium (3.5-5.1) mmol/L Chloride (98-107) mmol/L Carbon Dioxide (22-30) mmol/L BUN (7-17) mg/dL Creatinine (0.52-1.04) mg/dL Glucose (74-99) mg/dL POC Glucose (mg/dL) (75-99) mg/dL Plasma Lactic Acid Charles (0.7-2.0) mmol/L Uric Acid 12.1 H (3.7-7.4) mg/dL Calcium (8.4-10.2) mg/dL Phosphorus (2.5-4.5) mg/dL Troponin I (0.000-0.034) ng/mL Total Protein (6.3-8.2) g/dL Urine Appearance (Clear) Ur Leukocyte Esterase (Negative) Urine WBC (0-5) /hpf Urine WBC Clumps (None) /hpf Urine Bacteria (None) /hpf Urine Mucus (None) /hpf Diabetes panel 12/09/19 12/09/19 12/09/19 Range/Units 01:36 03:48 05:51 Sodium 134 L 138 (137-145) mmol/L Potassium 8.6 H* 7.3 H* 7.2 H* (3.5-5.1) mmol/L Chloride 95 L 99 (98-107) mmol/L Carbon Dioxide 26 27 (22-30) mmol/L BUN 160 H* 150 H* (7-17) mg/dL Creatinine 5.73 H 5.72 H (0.52-1.04) mg/dL Glucose 167 H 133 H (74-99) mg/dL Calcium 8.0 L 7.6 L (8.4-10.2) mg/dL AST 21 (14-36) U/L ALT 19 (4-34) U/L Alkaline Phosphatase 46 (38-126) U/L Total Protein 5.8 L (6.3-8.2) g/dL Albumin 3.8 (3.5-5.0) g/dL 12/09/19 Range/Units 09:18 Sodium 138 (137-145) mmol/L Potassium 7.0 H* (3.5-5.1) mmol/L Chloride 98 (98-107) mmol/L Carbon Dioxide 31 H (22-30) mmol/L BUN 154 H* (7-17) mg/dL Creatinine 5.63 H (0.52-1.04) mg/dL Glucose 137 H (74-99) mg/dL Calcium 7.7 L (8.4-10.2) mg/dL AST (14-36) U/L ALT (4-34) U/L Alkaline Phosphatase (38-126) U/L Total Protein (6.3-8.2) g/dL Albumin (3.5-5.0) g/dL Calcium panel 12/09/19 12/09/19 12/09/19 Range/Units 01:36 05:51 09:18 Calcium 8.0 L 7.6 L 7.7 L (8.4-10.2) mg/dL Phosphorus 6.4 H (2.5-4.5) mg/dL Albumin 3.8 (3.5-5.0) g/dL Pituitary panel 12/09/19 12/09/19 12/09/19 Range/Units 01:36 03:48 05:51 Sodium 134 L 138 (137-145) mmol/L Potassium 8.6 H* 7.3 H* 7.2 H* (3.5-5.1) mmol/L Chloride 95 L 99 (98-107) mmol/L Carbon Dioxide 26 27 (22-30) mmol/L BUN 160 H* 150 H* (7-17) mg/dL Creatinine 5.73 H 5.72 H (0.52-1.04) mg/dL Glucose 167 H 133 H (74-99) mg/dL Calcium 8.0 L 7.6 L (8.4-10.2) mg/dL 12/09/19 Range/Units 09:18 Sodium 138 (137-145) mmol/L Potassium 7.0 H* (3.5-5.1) mmol/L Chloride 98 (98-107) mmol/L Carbon Dioxide 31 H (22-30) mmol/L BUN 154 H* (7-17) mg/dL Creatinine 5.63 H (0.52-1.04) mg/dL Glucose 137 H (74-99) mg/dL Calcium 7.7 L (8.4-10.2) mg/dL Adrenal panel 12/09/19 12/09/19 12/09/19 Range/Units 01:36 03:48 05:51 Sodium 134 L 138 (137-145) mmol/L Potassium 8.6 H* 7.3 H* 7.2 H* (3.5-5.1) mmol/L Chloride 95 L 99 (98-107) mmol/L Carbon Dioxide 26 27 (22-30) mmol/L BUN 160 H* 150 H* (7-17) mg/dL Creatinine 5.73 H 5.72 H (0.52-1.04) mg/dL Glucose 167 H 133 H (74-99) mg/dL Calcium 8.0 L 7.6 L (8.4-10.2) mg/dL Total Bilirubin 0.7 (0.2-1.3) mg/dL AST 21 (14-36) U/L ALT 19 (4-34) U/L Alkaline Phosphatase 46 (38-126) U/L Total Protein 5.8 L (6.3-8.2) g/dL Albumin 3.8 (3.5-5.0) g/dL 12/09/19 Range/Units 09:18 Sodium 138 (137-145) mmol/L Potassium 7.0 H* (3.5-5.1) mmol/L Chloride 98 (98-107) mmol/L Carbon Dioxide 31 H (22-30) mmol/L BUN 154 H* (7-17) mg/dL Creatinine 5.63 H (0.52-1.04) mg/dL Glucose 137 H (74-99) mg/dL Calcium 7.7 L (8.4-10.2) mg/dL Total Bilirubin (0.2-1.3) mg/dL AST (14-36) U/L ALT (4-34) U/L Alkaline Phosphatase (38-126) U/L Total Protein (6.3-8.2) g/dL Albumin (3.5-5.0) g/dL
--- NOTE | 2019-12-09 13:17 | P.PCN ---
Description of Procedure: Preoperative diagnoses is acute chronic renal failure with high potassium post underwent same Placement of a dialysis catheter triple-lumen under ultrasound-guided Right groins were prepped and draped applied a sterile manner 1% lidocaine were infiltrated right groin. Ultrasound-guided micropuncture introduced to right femoral vein micropuncture guidewire passed past and 5-Dutch sheath advanced on the top of the guidewire. Then we passed a regular guidewire without any resistance dilator was advanced on the top the guidewire. Then replaced triple- lumen dialysis catheter flushed with heparin saline and Hep-Lock secured with 3- 0 nylon dressing applied patient are to the procedure well
[2019-12-09] MEDS: MIDODRINE 5 MG TAB PO PRN (13:52)
[2019-12-09 13:57] LABS: Magnesium 1.5 mg/dL (1.6-2.3)
--- NOTE | 2019-12-09 14:57 | P.CNPUL ---
History of Present Illness Consult date: 12/09/19 Reason for consult: dyspnea History of present illness: 79-year-old female patient well-known to me. Patient has known history of advanced COPD, chronic hypoxic respiratory failure maintained on oxygen between 4 and 5 L per minute nasal cannula, severe obstructive sleep apnea with declined CPAP therapy over the years, history of coronary artery disease, history of CLL and severe pulmonary hypertension with right-sided heart failure. I have known this patient for many years and I'm taking care of her. She has been having progressive decline in her overall condition and health status. She has also component of chronic kidney disease. She came into the emergency department after having some worsening shortness of breath. She tried to fight it off at home. Nevertheless, ultimately condition got worse and she came into the hospital where she was utilized to have a acute on top of chronic kidney failure with a creatinine up to 5.7 and a potassium level of 8.6. The patient received the combination of treatment for hyperkalemia including IV calcium, IV bicarbonate and IV Lasix in addition to nebulized albuterol nebulized treatments and IV insulin with D50 sugar. Potassium level gradually came down to 7.2 from a baseline of 8.6. Nevertheless it was not enough and the patient also has a component of fluid overload and the urine output was in the order of 20 mL an hour. At that point I decided to proceed with dialysis in regards to hyperlipidemia. The patient uses only 200 mL of urine output following an 80 mg IV Lasix push and dialysis catheter was inserted by vascular surgery and the patient will be proceeding with dialysis. Noted the proBNP level is elevated and the chest x-ray is consistent with CHF and fluid overload. The patient is currently on a BiPAP at a pressure of 12/6 cm of water with an FiO2 of 50%. She is arousable pH is communicating. No significant cardiac arrhythmias related to hyperkalemia. Her basal lactic acid level was at 3.7 and came up to 1.7. Review of Systems Constitutional Constitutional: no fever, no night sweats, no significant weight gain, no significant weight loss, exercise intolerance, lethargy, progressive worsening shortness of breath over this past 2 weeks Eyes Eyes: no dry eyes, no irritation, vision change (macular degeneration) ENMT Ears: no difficulty hearing, no ear pain Nose: no frequent nosebleeds, no nose problems, no sinus problems Mouth/Throat: no sore throat, no bleeding gums, no dry mouth, no mouth ulcers, no teeth problems, snoring Cardiovascular Cardiovascular: no chest pain, no arm pain on exertion, no shortness of breath when lying down, no palpitations, no known heart murmur, shortness of breath when walking Respiratory Respiratory: no coughing up blood, no sleep apnea, cough, wheezing, shortness of breath progressively getting worse over this past 2 weeks Gastrointestinal Gastrointestinal: no abdominal pain, no nausea, no vomiting, no constipation, normal appetite, no diarrhea, not vomiting blood, no dyspepsia, no GERD Genitourinary Genitourinary: no incontinence, no difficulty urinating, no hematuria, no increased frequency Musculoskeletal Musculoskeletal: no muscle aches, no muscle weakness, no arthralgias/joint pain, no back pain, no swelling in the extremities Integumentary Skin: no abnormal mole, no jaundice, no rashes, no laceration Neurologic Neurologic: Diminished consciousness, no weakness, no numbness, no seizures, no dizziness, no migraines, no headaches, no tremor, diminished level of consciousness Psychiatric Psych: no depression, no sleep disturbances, feeling safe in a relationship, no alcohol abuse, no anxiety, no hallucinations, no suicidal thoughts Endocrine Endocrine: Increased fatigue Hematologic/Lymphatic Hematologic/Lymphatic no swollen glands, no bruising, no excessive bleeding Allergic/Immunologic Allergy/Immunologic: no runny nose, no sinus pressure, no itching, no hives, no frequent sneezing Past Medical History Past Medical History: Cancer, Heart Failure, COPD, Hyperlipidemia, Hypertension, Sleep Apnea/CPAP/BIPAP, Thyroid Disorder Additional Past Medical History / Comment(s): CLL. sleep apnea. macular degeneration. Skin ca History of Any Multi-Drug Resistant Organisms: None Reported Past Surgical History: Heart Catheterization With Stent, Tonsillectomy Additional Past Surgical History / Comment(s): d & c Past Anesthesia/Blood Transfusion Reactions: No Reported Reaction Date of Last Stent Placement:: 2007 Past Psychological History: No Psychological Hx Reported Smoking Status: Former smoker Past Alcohol Use History: Daily Past Drug Use History: None Reported - Past Family History Mother Family Medical History: Congestive Heart Failure (CHF) Father Family Medical History: No Reported History Additional Family Medical History / Comment(s): "Alcohol problems" Chirrosis Medications and Allergies Home Medications Medication Instructions Recorded Confirmed Type Arformoterol Tartrate [Brovana] 15 mcg INHALATION RT-BID 10/03/16 12/09/19 History Aspirin EC [Ecotrin Low Dose] 81 mg PO DAILY 10/03/16 12/09/19 History LORazepam [Ativan] 0.5 mg PO BID PRN 10/03/16 12/09/19 History Levothyroxine Sodium [Synthroid] 100 mcg PO DAILY 10/03/16 12/09/19 History Multivitamins, Thera [Multivitamin 1 tab PO DAILY 10/03/16 12/09/19 History (formulary)] Nitroglycerin Sl Tabs [Nitrostat] 0.4 mg SUBLINGUAL Q5M PRN 10/03/16 12/09/19 History Omeprazole [PriLOSEC] 20 mg PO DAILY 10/03/16 12/09/19 History Vit C/E/Zn/Coppr/Lutein/Zeaxan 1 cap PO BID 10/03/16 12/09/19 History [Preservision Areds 2 Softgel] amLODIPine [Norvasc] 10 mg PO DAILY 10/03/16 12/09/19 History hydrALAZINE HCL 25 mg PO BID 10/03/16 12/09/19 History Atorvastatin [Lipitor] 40 mg PO HS 05/09/19 12/09/19 History Budesonide [Pulmicort] 0.5 mg INHALATION RT-BID 05/09/19 12/09/19 History Ezetimibe [Zetia] 10 mg PO DAILY 05/09/19 12/09/19 History Levothyroxine Sodium [Synthroid] 50 mcg PO PADILLA 05/09/19 12/09/19 History Yupelri 175mcg/3ml 175 mcg INHALATION RT-DAILY 05/09/19 12/09/19 History carvediloL [Coreg] 6.25 mg PO BID 05/09/19 12/09/19 History Clopidogrel [Plavix] 75 mg PO DAILY #30 tab 05/11/19 12/09/19 Rx Isosorbide Mononitrate ER [Imdur] 30 mg PO DAILY #30 tab.er.24h 05/11/19 12/09/19 Rx Potassium Chloride ER [K-Dur 20] 20 meq PO DAILY 08/03/19 12/09/19 History Melatonin 3 mg PO HS PRN tablet 08/04/19 12/09/19 Rx Albuterol Inhaler [Ventolin Hfa 2 puff INHALATION RT-QID PRN 10/02/19 12/09/19 History Inhaler] Promethaz-Cod 6.25-10 mg/5 ml 5 ml PO Q6HR PRN 10/02/19 12/09/19 History [Phenergan with Codeine] metFORMIN HCL [Glucophage] 500 mg PO BID-W/MEALS 10/02/19 12/09/19 History sitaGLIPtin PHOSPHATE [Januvia] 100 mg PO DAILY 10/02/19 12/09/19 History Escitalopram [Lexapro] 10 mg PO DAILY #10 tab 10/06/19 12/09/19 Rx Torsemide [Demadex] 40 mg PO DAILY #30 tab 10/06/19 12/09/19 Rx Loratadine [Claritin] 10 mg PO DAILY 12/09/19 12/09/19 History predniSONE [Deltasone] 20 mg PO BID 12/09/19 12/09/19 History Allergies Allergy/AdvReac Type Severity Reaction Status Date / Time No Known Allergies Allergy Verified 12/09/19 12:25 Physical Exam Vitals: Vital Signs Temp Pulse Pulse Resp BP BP Pulse Ox 12/09/19 14:48 97.2 F L 82 14 107/59 12/09/19 13:00 82 13 92/50 90 L 12/09/19 12:30 79 15 107/53 88 L 12/09/19 12:00 98.6 F 80 15 94/50 87 L 12/09/19 11:46 64 12/09/19 11:33 75 12/09/19 11:30 73 14 91/50 89 L 12/09/19 11:00 70 16 92/50 86 L 12/09/19 10:30 73 13 86/50 87 L 12/09/19 10:00 71 15 98/62 88 L 12/09/19 09:30 57 H 107/57 90 L 12/09/19 09:00 91 17 111/62 90 L 12/09/19 08:30 90 16 102/75 92 L 12/09/19 08:00 97.2 F L 93 15 102/75 93 L 12/09/19 07:40 80 12/09/19 07:00 110 H 18 102/58 87 L 12/09/19 06:20 87 14 87 L 12/09/19 06:10 80 18 84 L 12/09/19 06:00 74 15 105/88 86 L 12/09/19 05:50 79 18 95/45 88 L 12/09/19 05:40 97.9 F 75 16 112/62 85 L 12/09/19 04:53 97.5 F L 20 L 18 93/62 87 L 12/09/19 04:00 85 18 109/57 84 L 12/09/19 03:33 91 12/09/19 03:25 92 12/09/19 03:15 76 12/09/19 03:00 92 108/61 12/09/19 02:00 79 20 109/55 91 L 12/09/19 01:43 81 12/09/19 01:31 80 12/09/19 01:30 76 16 107/52 91 L 12/09/19 01:19 81 20 87 L 12/09/19 01:05 98.1 F 84 22 104/51 89 L Intake and Output 12/08/19 12/09/19 12/09/19 22:59 06:59 14:59 Output Total 500 1800 Balance -500 -1800 Output: Urine 500 800 Uretheral (Boggs) 400 800 Hemodialysis 1000 Other: Voiding Method Indwelling Catheter Indwelling Catheter Weight 83.915 kg 83.915 kg General Appearance no diaphoresis, no respiratory distress, speech not interrupted by breaths, no dyspnea, no pallor, not cachectic, well nourished, appears well, morbid obesity. The patient is lethargic and sleepy. The patient is currently tolerating BiPAP at a pressure of 12/6 cm of water. She is quite synchronous with a full face BiPAP mask. Head exam was generally normal. There was no scleral icterus or corneal arcus. Mucous membranes were moist. Neck was supple and without jugular venous distension, thyromegaly, or carotid bruits. Carotids were easily palpable bilaterally. There was no adenopathy. Classification: Class 4 Chest no sternocleidomastoid muscle contractions, no supraclavicular retractions, no intercostal retractions, no decreased air movement, no rhonchi, barrel chest, prolonged expiratory wheezing, decreased air movement, hyperinflation Heart no right ventricular heave, no distant heart sounds, no s3 gallop, (normal) jugular vein: jugular venous distention: by 0cm GI bowel sounds: hyperactive (borborygmi), bowel sounds: diminished or absent Extremities no cyanosis, no clubbing, no edema Neurologic decreased mental status, no somnolence, no confusion, moaning all 4 extremities without any limitation Examination of the skin revealed no evidence of significant rashes, suspicious appearing nevi or other concerning lesions. Results - Laboratory Findings CBC and BMP: 12/09/19 05:51 12/09/19 09:18 ABG ABG pH 7.29 (7.35-7.45) L 12/09/19 05:33 ABG pCO2 56 mmHg (35-45) H 12/09/19 05:33 ABG pO2 59 mmHg (83-108) L* 12/09/19 05:33 ABG O2 Saturation 88.4 % (94-97) L 12/09/19 05:33 PT/INR, D-dimer PT 10.8 sec (9.0-12.0) 12/09/19 01:36 INR 1.1 (<1.2) 12/09/19 01:36 Abnormal lab findings: Abnormal Labs 12/09/19 12/09/19 12/09/19 01:36 01:36 01:36 WBC 51.8 H* RBC 2.44 L Hgb 8.1 L Hct 26.2 L MCV 107.4 H MCHC 30.8 L Plt Count 69 L Neutrophils # (Manual) 1.04 L Lymphocytes # (Manual) 50.25 H Macrocytosis APTT 21.1 L ABG pH ABG pCO2 ABG pO2 ABG HCO3 ABG Total CO2 ABG O2 Saturation Sodium 134 L Potassium 8.6 H* Chloride 95 L Carbon Dioxide BUN 160 H* Creatinine 5.73 H Glucose 167 H POC Glucose (mg/dL) Plasma Lactic Acid Charles Uric Acid Calcium 8.0 L Phosphorus Magnesium Troponin I Total Protein 5.8 L Urine Appearance Ur Leukocyte Esterase Urine WBC Urine WBC Clumps Urine Bacteria Urine Mucus 12/09/19 12/09/19 12/09/19 01:36 01:36 03:48 WBC RBC Hgb Hct MCV MCHC Plt Count Neutrophils # (Manual) Lymphocytes # (Manual) Macrocytosis APTT ABG pH ABG pCO2 ABG pO2 ABG HCO3 ABG Total CO2 ABG O2 Saturation Sodium Potassium Chloride Carbon Dioxide BUN Creatinine Glucose POC Glucose (mg/dL) Plasma Lactic Acid Charles 3.3 H* Uric Acid Calcium Phosphorus Magnesium Troponin I 0.132 H* Total Protein Urine Appearance Cloudy H Ur Leukocyte Esterase Large H Urine WBC 34 H Urine WBC Clumps Few H Urine Bacteria Few H Urine Mucus Many H 12/09/19 12/09/19 12/09/19 03:48 05:26 05:33 WBC RBC Hgb Hct MCV MCHC Plt Count Neutrophils # (Manual) Lymphocytes # (Manual) Macrocytosis APTT ABG pH 7.29 L ABG pCO2 56 H ABG pO2 59 L* ABG HCO3 27 H ABG Total CO2 29 H ABG O2 Saturation 88.4 L Sodium Potassium 7.3 H* Chloride Carbon Dioxide BUN Creatinine Glucose POC Glucose (mg/dL) 168 H Plasma Lactic Acid Charles Uric Acid Calcium Phosphorus Magnesium Troponin I Total Protein Urine Appearance Ur Leukocyte Esterase Urine WBC Urine WBC Clumps Urine Bacteria Urine Mucus 12/09/19 12/09/19 12/09/19 05:51 05:51 05:51 WBC 43.5 H RBC 2.32 L Hgb 7.5 L Hct 25.1 L MCV 108.5 H MCHC 29.9 L Plt Count 63 L Neutrophils # (Manual) Lymphocytes # (Manual) 38.28 H Macrocytosis Marked A APTT ABG pH ABG pCO2 ABG pO2 ABG HCO3 ABG Total CO2 ABG O2 Saturation Sodium Potassium 7.2 H* Chloride Carbon Dioxide BUN 150 H* Creatinine 5.72 H Glucose 133 H POC Glucose (mg/dL) Plasma Lactic Acid Charles 3.7 H* Uric Acid Calcium 7.6 L Phosphorus 6.4 H Magnesium Troponin I Total Protein Urine Appearance Ur Leukocyte Esterase Urine WBC Urine WBC Clumps Urine Bacteria Urine Mucus 12/09/19 12/09/19 12/09/19 05:53 09:18 09:18 WBC RBC Hgb Hct MCV MCHC Plt Count Neutrophils # (Manual) Lymphocytes # (Manual) Macrocytosis APTT ABG pH ABG pCO2 ABG pO2 ABG HCO3 ABG Total CO2 ABG O2 Saturation Sodium Potassium 7.0 H* Chloride Carbon Dioxide 31 H BUN 154 H* Creatinine 5.63 H Glucose 137 H POC Glucose (mg/dL) Plasma Lactic Acid Charles 3.1 H* Uric Acid Calcium 7.7 L Phosphorus Magnesium Troponin I 0.109 H* Total Protein Urine Appearance Ur Leukocyte Esterase Urine WBC Urine WBC Clumps Urine Bacteria Urine Mucus 12/09/19 12/09/19 09:18 12:53 WBC RBC Hgb Hct MCV MCHC Plt Count Neutrophils # (Manual) Lymphocytes # (Manual) Macrocytosis APTT ABG pH ABG pCO2 ABG pO2 ABG HCO3 ABG Total CO2 ABG O2 Saturation Sodium Potassium Chloride Carbon Dioxide BUN Creatinine Glucose POC Glucose (mg/dL) Plasma Lactic Acid Charles Uric Acid 12.1 H Calcium Phosphorus Magnesium 1.5 L Troponin I Total Protein Urine Appearance Ur Leukocyte Esterase Urine WBC Urine WBC Clumps Urine Bacteria Urine Mucus - Diagnostic Findings Chest x-ray: image reviewed Assessment and Plan Plan: 1 acute hypoxic respiratory failure currently on BiPAP for respiratory support at a pressure of 12/6 cm of water and FiO2 of 60%. Chest x-ray is consistent with cardiomegaly and fluid overload/CHF. The blood gases showing a combination of metabolic acidosis and chronic hypoxemia 2 acute on chronic kidney failure. The patient presented with severe hyperkalemia and fluid overload. The patient did not respond to conventional treatment of hyperkalemia and the patient will undergo dialysis this afternoon. 3 acute hyperkalemia secondary to above 4 severe COPD with chronic hypoxic and hypercapnic respiratory failure patient wears for a half liters of oxygen on a regular basis, and she is maintained on a combination of Primacor, Perforomist, Yupelri, and albuterol rescue inhaler on an as-needed basis 5. Secondary pulmonary hypertension with a preserved LV function and ejection fraction of 55% 6. Chronic lymphoid leukemia, with chronic lymphocytosis and chronic anemia with thrombocytopenia 7 History of hypogammaglobulinemia and she is on supplements 8. essential hypertension 9 coronary arteriosclerosis 10. 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 11 hyperuricemia 12 troponin leak 13 questionable UTI currently on IV Rocephin Plan Continue BiPAP for Celia support Agree with hemodialysis Continue 60 mg IV push every 12 hours May ultimately require intubation mechanical ventilation the patient does not respond to dialysis and ultrafiltration Monitor potassium level Avoid nephrotoxic agents IV Rocephin as an empiric antibiotic coverage for the possibility of an underlying UTI We'll continue to follow.
[2019-12-09 18:18] LABS: Calcium 7.7 mg/dL (8.4-10.2); Potassium 5.3 mmol/L (3.5-5.1)
--- NOTE | 2019-12-09 19:28 | P.CONS ---
History of Present Illness - Reason for Consult Consult date: 12/09/19 CLL Requesting physician: Vane Lozada - Chief Complaint Weakness and AMS - History of Present Illness Mrs. Martinez is a pleasant female patient well known to our practice. Primary Oncologist Dr. Stu Gomez. Diagnosis and obervation of stage 0 CLL. She remained asymptomatic for yeats, with exception of chronic arthralgias. She has known history of oxygen dependent COPD, maintained on 4-5 L per minute nasal cannula, obstructive sleep apnea, has repeatedly refused CPAP therapy, coronary artery disease, pulmonary hypertension, and right-sided heart failure. Over the past few months she has had a progressive decline in her overall health. Over the past year her WBC has remained stable at 44K. Over the past couple months her hemoglobin has started to decrease and renal function has had a mild trend up. Her daughter called concerned about her decreased appetite, energy, and SOB. She was seen in follow-up and CT Chest/abdomen and pelvis revealed some non-s pecific sub centimeter nodes, as well as, solid nodule in subcutaneous left posterior chest wall, measuring 2.6x4cm. At this time initiation of treatment was discussed, although she was not a candidate for imbruvica due to her overall performance status greater than 2. Rituxan was discussed, although the patient and family were "thinking" about it. She now presents to [facility] for further evaluation for progressively worsening symptoms. She was seen and evaluated this am with Dr. Rich in the ICU. She does receive occassional IVIG infusions for IgG less than 600. Review of Systems All systems: negative Constitutional: Reports as per HPI, Reports fatigue Past Medical History Past Medical History: Cancer, Heart Failure, COPD, Hyperlipidemia, Hypertension, Sleep Apnea/CPAP/BIPAP, Thyroid Disorder Additional Past Medical History / Comment(s): CLL. sleep apnea. macular degeneration. Skin ca History of Any Multi-Drug Resistant Organisms: None Reported Past Surgical History: Heart Catheterization With Stent, Tonsillectomy Additional Past Surgical History / Comment(s): d & c Past Anesthesia/Blood Transfusion Reactions: No Reported Reaction Date of Last Stent Placement:: 2007 Past Psychological History: No Psychological Hx Reported Smoking Status: Former smoker Past Alcohol Use History: Daily Past Drug Use History: None Reported - Past Family History Mother Family Medical History: Congestive Heart Failure (CHF) Father Family Medical History: No Reported History Additional Family Medical History / Comment(s): "Alcohol problems" Chirrosis Medications and Allergies Home Medications Medication Instructions Recorded Confirmed Type Arformoterol Tartrate [Brovana] 15 mcg INHALATION RT-BID 10/03/16 12/09/19 History Aspirin EC [Ecotrin Low Dose] 81 mg PO DAILY 10/03/16 12/09/19 History LORazepam [Ativan] 0.5 mg PO BID PRN 10/03/16 12/09/19 History Levothyroxine Sodium [Synthroid] 100 mcg PO DAILY 10/03/16 12/09/19 History Multivitamins, Thera [Multivitamin 1 tab PO DAILY 10/03/16 12/09/19 History (formulary)] Nitroglycerin Sl Tabs [Nitrostat] 0.4 mg SUBLINGUAL Q5M PRN 10/03/16 12/09/19 History Omeprazole [PriLOSEC] 20 mg PO DAILY 10/03/16 12/09/19 History Vit C/E/Zn/Coppr/Lutein/Zeaxan 1 cap PO BID 10/03/16 12/09/19 History [Preservision Areds 2 Softgel] amLODIPine [Norvasc] 10 mg PO DAILY 10/03/16 12/09/19 History hydrALAZINE HCL 25 mg PO BID 10/03/16 12/09/19 History Atorvastatin [Lipitor] 40 mg PO HS 05/09/19 12/09/19 History Budesonide [Pulmicort] 0.5 mg INHALATION RT-BID 05/09/19 12/09/19 History Ezetimibe [Zetia] 10 mg PO DAILY 05/09/19 12/09/19 History Levothyroxine Sodium [Synthroid] 50 mcg PO PADILLA 05/09/19 12/09/19 History Yupelri 175mcg/3ml 175 mcg INHALATION RT-DAILY 05/09/19 12/09/19 History carvediloL [Coreg] 6.25 mg PO BID 05/09/19 12/09/19 History Clopidogrel [Plavix] 75 mg PO DAILY #30 tab 05/11/19 12/09/19 Rx Isosorbide Mononitrate ER [Imdur] 30 mg PO DAILY #30 tab.er.24h 05/11/19 Rx Potassium Chloride ER [K-Dur 20] 20 meq PO DAILY 08/03/19 12/09/19 History Melatonin 3 mg PO HS PRN tablet 08/04/19 12/09/19 Rx Albuterol Inhaler [Ventolin Hfa 2 puff INHALATION RT-QID PRN 10/02/19 12/09/19 History Inhaler] Promethaz-Cod 6.25-10 mg/5 ml 5 ml PO Q6HR PRN 10/02/19 12/09/19 History [Phenergan with Codeine] metFORMIN HCL [Glucophage] 500 mg PO BID-W/MEALS 10/02/19 12/09/19 History sitaGLIPtin PHOSPHATE [Januvia] 100 mg PO DAILY 10/02/19 12/09/19 History Escitalopram [Lexapro] 10 mg PO DAILY #10 tab 10/06/19 12/09/19 Rx Torsemide [Demadex] 40 mg PO DAILY #30 tab 10/06/19 12/09/19 Rx Loratadine [Claritin] 10 mg PO DAILY 12/09/19 12/09/19 History predniSONE [Deltasone] 20 mg PO BID 12/09/19 12/09/19 History Allergies Allergy/AdvReac Type Severity Reaction Status Date / Time No Known Allergies Allergy Verified 12/09/19 12:25 Physical Exam Vitals: Vital Signs Temp Pulse Resp BP Pulse Ox 12/09/19 08:00 90 12/09/19 07:40 80 12/09/19 07:00 110 H 18 102/58 87 L 12/09/19 06:20 87 14 87 L 12/09/19 06:10 80 18 84 L 12/09/19 06:00 74 15 105/88 86 L 12/09/19 05:50 79 18 95/45 88 L 12/09/19 05:40 97.9 F 75 16 112/62 85 L 12/09/19 04:53 97.5 F L 20 L 18 93/62 87 L 12/09/19 04:00 85 18 109/57 84 L 12/09/19 03:33 91 12/09/19 03:25 92 12/09/19 03:15 76 12/09/19 03:00 92 108/61 12/09/19 02:00 79 20 109/55 91 L 12/09/19 01:43 81 12/09/19 01:31 80 12/09/19 01:30 76 16 107/52 91 L 12/09/19 01:19 81 20 87 L 12/09/19 01:05 98.1 F 84 22 104/51 89 L Intake and Output 12/08/19 12/09/19 12/09/19 22:59 06:59 14:59 Output Total 500 Balance -500 Output: Urine 500 Uretheral (Boggs) 400 Other: Voiding Method Indwelling Catheter Weight 83.915 kg - Constitutional General appearance: cooperative, no acute distress - EENT Eyes: EOMI ENT: hard of hearing, NA/AT - Neck Neck: normal ROM - Respiratory Respiratory: left: wheezing, bilateral: diminished - Cardiovascular Rhythm: regularly irregular leg Peripheral Edema: bilateral: 1+ - Gastrointestinal General gastrointestinal: normal bowel sounds, soft - Integumentary Integumentary: pale - Neurologic non focal - Musculoskeletal Musculoskeletal: generalized weakness - Psychiatric Flat affect Results CBC & Chem 7: 12/09/19 05:51 12/09/19 17:35 Labs: Abnormal Lab Results - Last 24 Hours (Table) 12/09/19 12/09/19 12/09/19 Range/Units 01:36 01:36 01:36 WBC 51.8 H* (3.8-10.6) k/uL RBC 2.44 L (3.80-5.40) m/uL Hgb 8.1 L (11.4-16.0) gm/dL Hct 26.2 L (34.0-46.0) % MCV 107.4 H (80.0-100.0) fL MCHC 30.8 L (31.0-37.0) g/dL Plt Count 69 L (150-450) k/uL Neutrophils # (Manual) 1.04 L (1.3-7.7) k/uL Lymphocytes # (Manual) 50.25 H (1.0-4.8) k/uL Macrocytosis APTT 21.1 L (22.0-30.0) sec ABG pH (7.35-7.45) ABG pCO2 (35-45) mmHg ABG pO2 (83-108) mmHg ABG HCO3 (21-25) mmol/L ABG Total CO2 (19-24) mmol/L ABG O2 Saturation (94-97) % Sodium 134 L (137-145) mmol/L Potassium 8.6 H* (3.5-5.1) mmol/L Chloride 95 L (98-107) mmol/L Carbon Dioxide (22-30) mmol/L BUN 160 H* (7-17) mg/dL Creatinine 5.73 H (0.52-1.04) mg/dL Glucose 167 H (74-99) mg/dL POC Glucose (mg/dL) (75-99) mg/dL Plasma Lactic Acid Charles (0.7-2.0) mmol/L Calcium 8.0 L (8.4-10.2) mg/dL Phosphorus (2.5-4.5) mg/dL Troponin I (0.000-0.034) ng/mL Total Protein 5.8 L (6.3-8.2) g/dL Urine Appearance (Clear) Ur Leukocyte Esterase (Negative) Urine WBC (0-5) /hpf Urine WBC Clumps (None) /hpf Urine Bacteria (None) /hpf Urine Mucus (None) /hpf 12/09/19 12/09/19 12/09/19 Range/Units 01:36 01:36 03:48 WBC (3.8-10.6) k/uL RBC (3.80-5.40) m/uL Hgb (11.4-16.0) gm/dL Hct (34.0-46.0) % MCV (80.0-100.0) fL MCHC (31.0-37.0) g/dL Plt Count (150-450) k/uL Neutrophils # (Manual) (1.3-7.7) k/uL Lymphocytes # (Manual) (1.0-4.8) k/uL Macrocytosis APTT (22.0-30.0) sec ABG pH (7.35-7.45) ABG pCO2 (35-45) mmHg ABG pO2 (83-108) mmHg ABG HCO3 (21-25) mmol/L ABG Total CO2 (19-24) mmol/L ABG O2 Saturation (94-97) % Sodium (137-145) mmol/L Potassium (3.5-5.1) mmol/L Chloride (98-107) mmol/L Carbon Dioxide (22-30) mmol/L BUN (7-17) mg/dL Creatinine (0.52-1.04) mg/dL Glucose (74-99) mg/dL POC Glucose (mg/dL) (75-99) mg/dL Plasma Lactic Acid Charles 3.3 H* (0.7-2.0) mmol/L Calcium (8.4-10.2) mg/dL Phosphorus (2.5-4.5) mg/dL Troponin I 0.132 H* (0.000-0.034) ng/mL Total Protein (6.3-8.2) g/dL Urine Appearance Cloudy H (Clear) Ur Leukocyte Esterase Large H (Negative) Urine WBC 34 H (0-5) /hpf Urine WBC Clumps Few H (None) /hpf Urine Bacteria Few H (None) /hpf Urine Mucus Many H (None) /hpf 12/09/19 12/09/19 12/09/19 Range/Units 03:48 05:26 05:33 WBC (3.8-10.6) k/uL RBC (3.80-5.40) m/uL Hgb (11.4-16.0) gm/dL Hct (34.0-46.0) % MCV (80.0-100.0) fL MCHC (31.0-37.0) g/dL Plt Count (150-450) k/uL Neutrophils # (Manual) (1.3-7.7) k/uL Lymphocytes # (Manual) (1.0-4.8) k/uL Macrocytosis APTT (22.0-30.0) sec ABG pH 7.29 L (7.35-7.45) ABG pCO2 56 H (35-45) mmHg ABG pO2 59 L* (83-108) mmHg ABG HCO3 27 H (21-25) mmol/L ABG Total CO2 29 H (19-24) mmol/L ABG O2 Saturation 88.4 L (94-97) % Sodium (137-145) mmol/L Potassium 7.3 H* (3.5-5.1) mmol/L Chloride (98-107) mmol/L Carbon Dioxide (22-30) mmol/L BUN (7-17) mg/dL Creatinine (0.52-1.04) mg/dL Glucose (74-99) mg/dL POC Glucose (mg/dL) 168 H (75-99) mg/dL Plasma Lactic Acid Charles (0.7-2.0) mmol/L Calcium (8.4-10.2) mg/dL Phosphorus (2.5-4.5) mg/dL Troponin I (0.000-0.034) ng/mL Total Protein (6.3-8.2) g/dL Urine Appearance (Clear) Ur Leukocyte Esterase (Negative) Urine WBC (0-5) /hpf Urine WBC Clumps (None) /hpf Urine Bacteria (None) /hpf Urine Mucus (None) /hpf 12/09/19 12/09/19 12/09/19 Range/Units 05:51 05:51 05:51 WBC 43.5 H (3.8-10.6) k/uL RBC 2.32 L (3.80-5.40) m/uL Hgb 7.5 L (11.4-16.0) gm/dL Hct 25.1 L (34.0-46.0) % MCV 108.5 H (80.0-100.0) fL MCHC 29.9 L (31.0-37.0) g/dL Plt Count 63 L (150-450) k/uL Neutrophils # (Manual) (1.3-7.7) k/uL Lymphocytes # (Manual) 38.28 H (1.0-4.8) k/uL Macrocytosis Marked A APTT (22.0-30.0) sec ABG pH (7.35-7.45) ABG pCO2 (35-45) mmHg ABG pO2 (83-108) mmHg ABG HCO3 (21-25) mmol/L ABG Total CO2 (19-24) mmol/L ABG O2 Saturation (94-97) % Sodium (137-145) mmol/L Potassium 7.2 H* (3.5-5.1) mmol/L Chloride (98-107) mmol/L Carbon Dioxide (22-30) mmol/L BUN 150 H* (7-17) mg/dL Creatinine 5.72 H (0.52-1.04) mg/dL Glucose 133 H (74-99) mg/dL POC Glucose (mg/dL) (75-99) mg/dL Plasma Lactic Acid Charles 3.7 H* (0.7-2.0) mmol/L Calcium 7.6 L (8.4-10.2) mg/dL Phosphorus 6.4 H (2.5-4.5) mg/dL Troponin I (0.000-0.034) ng/mL Total Protein (6.3-8.2) g/dL Urine Appearance (Clear) Ur Leukocyte Esterase (Negative) Urine WBC (0-5) /hpf Urine WBC Clumps (None) /hpf Urine Bacteria (None) /hpf Urine Mucus (None) /hpf 12/09/19 12/09/19 Range/Units 05:53 09:18 WBC (3.8-10.6) k/uL RBC (3.80-5.40) m/uL Hgb (11.4-16.0) gm/dL Hct (34.0-46.0) % MCV (80.0-100.0) fL MCHC (31.0-37.0) g/dL Plt Count (150-450) k/uL Neutrophils # (Manual) (1.3-7.7) k/uL Lymphocytes # (Manual) (1.0-4.8) k/uL Macrocytosis APTT (22.0-30.0) sec ABG pH (7.35-7.45) ABG pCO2 (35-45) mmHg ABG pO2 (83-108) mmHg ABG HCO3 (21-25) mmol/L ABG Total CO2 (19-24) mmol/L ABG O2 Saturation (94-97) % Sodium (137-145) mmol/L Potassium 7.0 H* (3.5-5.1) mmol/L Chloride (98-107) mmol/L Carbon Dioxide 31 H (22-30) mmol/L BUN 154 H* (7-17) mg/dL Creatinine 5.63 H (0.52-1.04) mg/dL Glucose 137 H (74-99) mg/dL POC Glucose (mg/dL) (75-99) mg/dL Plasma Lactic Acid Charles (0.7-2.0) mmol/L Calcium 7.7 L (8.4-10.2) mg/dL Phosphorus (2.5-4.5) mg/dL Troponin I 0.109 H* (0.000-0.034) ng/mL Total Protein (6.3-8.2) g/dL Urine Appearance (Clear) Ur Leukocyte Esterase (Negative) Urine WBC (0-5) /hpf Urine WBC Clumps (None) /hpf Urine Bacteria (None) /hpf Urine Mucus (None) /hpf CT scan - abdomen: report reviewed CT scan - chest: report reviewed CT scan - pelvis: report reviewed Assessment and Plan (1) Acute renal failure superimposed on chronic kidney disease, on chronic dialysis Current Visit: Yes Status: Acute Code(s): N17.9 - ACUTE KIDNEY FAILURE, UNSPECIFIED; N18.9 - CHRONIC KIDNEY DISEASE, UNSPECIFIED; Z99.2 - DEPENDENCE ON RENAL DIALYSIS SNOMED Code(s): 132470600 (2) CARLOS (acute kidney injury) Current Visit: Yes Status: Acute Code(s): N17.9 - ACUTE KIDNEY FAILURE, UNSPECIFIED SNOMED Code(s): 38824772 (3) CLL (chronic lymphocytic leukemia) Current Visit: Yes Status: Acute Code(s): C91.10 - CHRONIC LYMPHOCYTIC LEUK OF B-CELL TYPE NOT ACHIEVE REMIS SNOMED Code(s): 59212977 (4) COPD (chronic obstructive pulmonary disease) Current Visit: Yes Status: Acute Code(s): J44.9 - CHRONIC OBSTRUCTIVE PULMONARY DISEASE, UNSPECIFIED SNOMED Code(s): 26808710 (5) Congestive heart failure Current Visit: Yes Status: Acute Code(s): I50.9 - HEART FAILURE, UNSPECIFIED SNOMED Code(s): 19885179 (6) Leukocytosis Current Visit: No Status: Acute Code(s): D72.829 - ELEVATED WHITE BLOOD CELL COUNT, UNSPECIFIED SNOMED Code(s): 412238126 (7) Macrocytic anemia Current Visit: Yes Status: Acute Code(s): D53.9 - NUTRITIONAL ANEMIA, UNSPECIFIED SNOMED Code(s): 52419827 Plan: Assessment and Plan: Acute on Chronic Hypoxic Respiratory Failure: - Pulmonology Following and monitored in ICU Acute Renal Failure on Chronic Kidney Disease: Stage unknown - Nephrology FOllowing - Hemodialysis to start today Chronic Lymphocytic Leukemia: Concern for worsening disease - Maintained on observation with recent CT suspicious of worsening disease, al though her WBC has been relatively unchanged and at her baseline 40-50K - She is not a candidate for Imbruivica treatment secondary to her overall performance adn declining health status - Rituxan was discussed with patient and daughter and they were deciding on if they wanted to pursue, this has not been initiated as of yet Worsening Macrocytic Anemia: - This is likely worsening related to her worsening renal function although other causes will need to be evaluated - Anemia work-up for nutritional deficiency for ability to replace any deficiencies ordered - Hemolysis work-up ordered - Erythropoetin SIRS 2/4 - - Potential UTI, abx per primary team - Will check IgG for potential need of IVIG Leukocytosis: Secondary to CLL - TLS bloodwork ordered - If Uric Acid Greater than 8 - Rec Rasburicase 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 Physician Attest: I have completed the full history and physcial and agree with above dictation, dictated as a scribe. Case was also discussed in full with nephrology
[2019-12-09] MEDS: FUROSEMIDE 10 MG/ML 10 ML VIAL IV SCH (19:51)
[2019-12-09] MEDS: MAGNESIUM SULFATE-D5W PMX 1 GM in DEXTROSE/WATER 1 100ML.BAG IVPB SCH ×2 (19:51→20:53)
[2019-12-09] MEDS: ATORVASTATIN 40 MG TAB PO SCH (19:51)
[2019-12-09 20:16] LABS: Reticulocyte % 3.2 % (0.5-2.0)
[2019-12-09 21:36] LABS: Hepatitis B Surface AB- Quant 224.3 mIU/mL; Hepatitis B Surface Antibody Reactive (Non-Reactive); Hepatitis B Surface Antigen Non-Reactive (Non-Reactive)
[2019-12-10] MEDS: IPRATROPIUM-ALBUTEROL 3 ML NEB INHALATION SCH ×6 (01:59→18:54)
[2019-12-10] MEDS: MORPHINE SULFATE 4 MG/ML SYRINGE IV PRN (03:03)
[2019-12-10 04:38] LABS: Albumin 3.3 g/dL (3.5-5.0); Calcium 7.9 mg/dL (8.4-10.2); Phosphorus 4.4 mg/dL (2.5-4.5); Potassium 5.3 mmol/L (3.5-5.1); Total Protein 5.3 g/dL (6.3-8.2)
[2019-12-10 04:46] LABS: HGB 7.5 gm/dL (11.4-16.0); Hypochromasia Moderate; MCH 32.4 pg (25.0-35.0); MCHC 30.1 g/dL (31.0-37.0); MCV 107.5 fL (80.0-100.0); Macrocytosis Moderate; Mean Platelet Volume 9.6; RBC 2.33 m/uL (3.80-5.40); RDW 14.5 % (11.5-15.5); WBC 36.9 k/uL (3.8-10.6)
[2019-12-10 05:15] LABS: Platelet Count 49 k/uL (150-450)
--- NOTE | 2019-12-10 06:25 | XR ---
EXAMINATION TYPE: XR chest 1V portable DATE OF EXAM: 12/10/2019 CLINICAL HISTORY: Difficulty breathing progress study. TECHNIQUE: Single AP portable upright view of the chest is obtained. COMPARISON: Chest x-ray from one day earlier and older studies. CT chest November 06, 2019. FINDINGS: Background chronic emphysematous change. Persistent cardiomegaly with atherosclerotic tho racic aorta. Persistent left greater than right bibasilar opacities. S-shaped scoliosis. IMPRESSION: Cardiomegaly with small right and moderate-sized left pleural effusions redemonstrated. C orrelate for CHF exacerbation on background chronic emphysematous change. Left greater than right bib asilar atelectasis and/or infiltrate noted. No significant change from 1 day earlier.
[2019-12-10 06:35] LABS: Lymphocytes # (M) 33.95 k/uL (1.0-4.8); Monocytes # (M) 0.37 k/uL (0-1.0); Neutrophils # (M) 2.58 k/uL (1.3-7.7); Neutrophils % (M) 7 %; Nucleated Red Blood Cells 0 /100 WBC (0-0); Total Cells Counted 100
[2019-12-10 06:37] LABS: Anisocytosis (M) Present
[2019-12-10] MEDS: PANTOPRAZOLE 40 MG/10 ML VIAL IV SCH (08:36)
[2019-12-10] MEDS: ASPIRIN 81 MG PO SCH (08:36)
[2019-12-10] MEDS: EZETIMIBE 10 MG TAB PO SCH (08:36)
[2019-12-10] MEDS ORDERED: RASBURICASE 6 MG in SODIUM CHLORIDE 0.9% 46 ML IV ONE (09:00)
[2019-12-10 09:29] LABS: % Iron Saturation 26.27 (12.00-45.00)
[2019-12-10] MEDS: MIDODRINE 5 MG TAB PO PRN ×2 (09:55→12:32)
[2019-12-10] MEDS: FUROSEMIDE 10 MG/ML 10 ML VIAL IV SCH ×2 (09:55→20:01)
--- NOTE | 2019-12-10 10:09 | P.PN ---
Subjective Patient is seen in follow-up for acute kidney injury on chronic kidney disease and hyperkalemia. Started on hemodialysis December 08 due to oliguria and persistent hyperkalemia. Tolerated 1 L ultrafiltration yesterday. Didn't require midodrine. Not on any vasopressors. Remains on BiPAP. Vital signs are stable. General: The patient appeared well nourished and normally developed. HEENT: Head exam is unremarkable. Neck is without jugular venous distension. LUNGS: Breath sounds decreased. HEART: Rate and Rhythm are regular. ABDOMEN: Soft, nontender. EXTREMITITES: No edema. Objective - Vital Signs Vital signs: Vital Signs Temp 98.9 F 12/10/19 08:00 Pulse 82 12/10/19 08:10 Resp 14 12/10/19 08:00 BP 86/58 12/10/19 08:00 Pulse Ox 90 L 12/10/19 08:00 Intake & Output 12/09/19 12/10/19 12/10/19 18:59 06:59 18:59 Intake Total 100 200 Output Total 1340 385 65 Balance -1240 -185 -65 Weight 83.915 kg 91.2 kg Intake: IV 100 Calcium Gluconate 1 gm In 100 Sodium Chloride 0.9% 100 ml @ 100 mls/hr IVPB ONCE ONE Rx#:[id number] Intake, IV Titration 200 Amount Magnesium Sulfate-D5w Pmx 200 1 gm In Dextrose/Water 1 100ml.bag @ 100 mls/hr IVPB Q1H [facility] Rx#: [id number] Output: Urine 340 385 65 Hemodialysis 1000 Other: Voiding Method Indwelling Catheter Indwelling Catheter - Labs CBC & Chem 7: 12/10/19 03:59 12/10/19 03:59 Labs: Abnormal Lab Results - Last 24 Hours (Table) 12/09/19 12/09/19 12/09/19 Range/Units 05:51 09:18 09:18 WBC (3.8-10.6) k/uL RBC (3.80-5.40) m/uL Hgb (11.4-16.0) gm/dL Hct (34.0-46.0) % MCV (80.0-100.0) fL MCHC (31.0-37.0) g/dL Plt Count (150-450) k/uL Lymphocytes # (Manual) (1.0-4.8) k/uL Retic Count 3.2 H (0.5-2.0) % Sodium (137-145) mmol/L Potassium 7.0 H* (3.5-5.1) mmol/L Carbon Dioxide 31 H (22-30) mmol/L BUN 154 H* (7-17) mg/dL Creatinine 5.63 H (0.52-1.04) mg/dL Glucose 137 H (74-99) mg/dL Plasma Lactic Acid Charles 3.1 H* (0.7-2.0) mmol/L Uric Acid (3.7-7.4) mg/dL Calcium 7.7 L (8.4-10.2) mg/dL Magnesium (1.6-2.3) mg/dL TIBC (228-460) ug/dL Ferritin (10.0-291.0) ng/mL Total Protein (6.3-8.2) g/dL Total Protein (PEP) (6.2-8.2) g/dL Albumin (3.5-5.0) g/dL Hep Bs Antibody (Non-Reactive) 12/09/19 12/09/19 12/09/19 Range/Units 09:18 12:53 12:53 WBC (3.8-10.6) k/uL RBC (3.80-5.40) m/uL Hgb (11.4-16.0) gm/dL Hct (34.0-46.0) % MCV (80.0-100.0) fL MCHC (31.0-37.0) g/dL Plt Count (150-450) k/uL Lymphocytes # (Manual) (1.0-4.8) k/uL Retic Count (0.5-2.0) % Sodium (137-145) mmol/L Potassium (3.5-5.1) mmol/L Carbon Dioxide (22-30) mmol/L BUN (7-17) mg/dL Creatinine (0.52-1.04) mg/dL Glucose (74-99) mg/dL Plasma Lactic Acid Charles (0.7-2.0) mmol/L Uric Acid 12.1 H (3.7-7.4) mg/dL Calcium (8.4-10.2) mg/dL Magnesium 1.5 L (1.6-2.3) mg/dL TIBC (228-460) ug/dL Ferritin (10.0-291.0) ng/mL Total Protein (6.3-8.2) g/dL Total Protein (PEP) (6.2-8.2) g/dL Albumin (3.5-5.0) g/dL Hep Bs Antibody Reactive H (Non-Reactive) 12/09/19 12/10/19 12/10/19 Range/Units 17:35 03:59 03:59 WBC (3.8-10.6) k/uL RBC (3.80-5.40) m/uL Hgb (11.4-16.0) gm/dL Hct (34.0-46.0) % MCV (80.0-100.0) fL MCHC (31.0-37.0) g/dL Plt Count (150-450) k/uL Lymphocytes # (Manual) (1.0-4.8) k/uL Retic Count (0.5-2.0) % Sodium 134 L 134 L (137-145) mmol/L Potassium 5.3 H 5.3 H (3.5-5.1) mmol/L Carbon Dioxide (22-30) mmol/L BUN 81 H 80 H (7-17) mg/dL Creatinine 3.48 H 3.93 H (0.52-1.04) mg/dL Glucose 118 H 105 H (74-99) mg/dL Plasma Lactic Acid Charles (0.7-2.0) mmol/L Uric Acid (3.7-7.4) mg/dL Calcium 7.7 L 7.9 L (8.4-10.2) mg/dL Magnesium (1.6-2.3) mg/dL TIBC 217 L (228-460) ug/dL Ferritin 578.0 H (10.0-291.0) ng/mL Total Protein 5.3 L (6.3-8.2) g/dL Total Protein (PEP) 5.0 L (6.2-8.2) g/dL Albumin 3.3 L (3.5-5.0) g/dL Hep Bs Antibody (Non-Reactive) 12/10/19 Range/Units 03:59 WBC 36.9 H (3.8-10.6) k/uL RBC 2.33 L (3.80-5.40) m/uL Hgb 7.5 L (11.4-16.0) gm/dL Hct 25.0 L (34.0-46.0) % MCV 107.5 H (80.0-100.0) fL MCHC 30.1 L (31.0-37.0) g/dL Plt Count 49 L (150-450) k/uL Lymphocytes # (Manual) 33.95 H (1.0-4.8) k/uL Retic Count (0.5-2.0) % Sodium (137-145) mmol/L Potassium (3.5-5.1) mmol/L Carbon Dioxide (22-30) mmol/L BUN (7-17) mg/dL Creatinine (0.52-1.04) mg/dL Glucose (74-99) mg/dL Plasma Lactic Acid Charles (0.7-2.0) mmol/L Uric Acid (3.7-7.4) mg/dL Calcium (8.4-10.2) mg/dL Magnesium (1.6-2.3) mg/dL TIBC (228-460) ug/dL Ferritin (10.0-291.0) ng/mL Total Protein (6.3-8.2) g/dL Total Protein (PEP) (6.2-8.2) g/dL Albumin (3.5-5.0) g/dL Hep Bs Antibody (Non-Reactive) Microbiology - Last 24 Hours (Table) 12/09/19 01:36 Blood Culture - Preliminary Blood No Growth after 24 hours 12/09/19 03:48 Urine Culture - Preliminary Urine,Voided Assessment and Plan Plan: assessment: 1. Acute kidney injury secondary to ATN. Etiology is multifactorial - hypotension, sepsis, possibly cardiorenal. Also concern for tumor lysis syndrome. Creatinine 5.7 on admission. No proteinuria on UA. Started on hemodialysis December 08 due to persistent hyperkalemia, volume overload and oliguria. Urine output 30-35 mL an hour. No hydronephrosis noted on kidney ultrasound. 2. Chronic kidney disease stage III secondary to nephrosclerosis with baseline creatinine in the range of 1-1.5. 3. Hyperkalemia secondary to acute kidney injury and potassium supplementation. Improved postdialysis. 4. History of CLL. Oncology following. 5. Volume overload. 6. Acute on chronic diastolic CHF with severe pulmonary hypertension. 7. Hyperphosphatemia secondary to acute kidney injury. Improved postdialysis. 8. Questionable tumor lysis. Status post rasburicase December 08. 9. Acute on chronic diastolic CHF and moderate to severe tricuspid regurgitation and severe pulmonary hypertension. 10. Anemia of chronic kidney disease. Iron replete. plan: Second treatment of hemodialysis today and third treatment tomorrow. Maintain Lasix 60 mg IV twice daily. Add Aranesp. Continue to monitor renal function and urine output.
[2019-12-10] MEDS ORDERED: HEPARIN SODIUM,PORCINE 5,000 UNIT/ML 1 ML VIAL ONE (10:30)
--- NOTE | 2019-12-10 10:34 | P.HPIM ---
History of Present Illness H&P Date: 12/09/19 79-year-old the pleasant female came in with the worsening shortness of breath. Patient is found to have worsening renal function it has been progressively worsening patient is found to have elevated potassium of 8.6. Patient was treated with multiple doses of IV calcium gluconate, Lasix, insulin with D50 in spite of which potassium didn't respond very well because of which patient had emergent dialysis. Patient does make urine. Patient was volume overloaded because of her decreased urine output. Patient the appears to have chronic kidney disease stage IV above. Patient had elevation in serum creatinine for her his baseline. There is no evidence of infection at this time patient denied any dysuria patient denied any cough fever chills. As per the nephrology patient may have some acute blood necrosis. Patient is definitely bit volume overloaded BNP is elevated at this volume overload is probably secondary to renal failure. Although patient may have some chronic diastolic dysfunction. Cardiology evaluate the patient as well. Echocardiogram is being obtained. Review of Systems All other systems are negative except for those mentioned above of her history is limited because of the patient being on BiPAP. Past Medical History Past Medical History: Cancer, Heart Failure, COPD, Hyperlipidemia, Hypertension, Sleep Apnea/CPAP/BIPAP, Thyroid Disorder Additional Past Medical History / Comment(s): CLL. sleep apnea. macular degeneration. Skin ca History of Any Multi-Drug Resistant Organisms: None Reported Past Surgical History: Heart Catheterization With Stent, Tonsillectomy Additional Past Surgical History / Comment(s): d & c Past Anesthesia/Blood Transfusion Reactions: No Reported Reaction Date of Last Stent Placement:: 2007 Past Psychological History: No Psychological Hx Reported Smoking Status: Former smoker Past Alcohol Use History: Daily Past Drug Use History: None Reported - Past Family History Mother Family Medical History: Congestive Heart Failure (CHF) Father Family Medical History: No Reported History Additional Family Medical History / Comment(s): "Alcohol problems" Chirrosis Medications and Allergies Home Medications Medication Instructions Recorded Confirmed Type Arformoterol Tartrate [Brovana] 15 mcg INHALATION RT-BID 10/03/16 12/09/19 History Aspirin EC [Ecotrin Low Dose] 81 mg PO DAILY 10/03/16 12/09/19 History LORazepam [Ativan] 0.5 mg PO BID PRN 10/03/16 12/09/19 History Levothyroxine Sodium [Synthroid] 100 mcg PO DAILY 10/03/16 12/09/19 History Multivitamins, Thera [Multivitamin 1 tab PO DAILY 10/03/16 12/09/19 History (formulary)] Nitroglycerin Sl Tabs [Nitrostat] 0.4 mg SUBLINGUAL Q5M PRN 10/03/16 12/09/19 History Omeprazole [PriLOSEC] 20 mg PO DAILY 10/03/16 12/09/19 History Vit C/E/Zn/Coppr/Lutein/Zeaxan 1 cap PO BID 10/03/16 12/09/19 History [Preservision Areds 2 Softgel] amLODIPine [Norvasc] 10 mg PO DAILY 10/03/16 12/09/19 History hydrALAZINE HCL 25 mg PO BID 10/03/16 12/09/19 History Atorvastatin [Lipitor] 40 mg PO HS 05/09/19 12/09/19 History Budesonide [Pulmicort] 0.5 mg INHALATION RT-BID 05/09/19 12/09/19 History Ezetimibe [Zetia] 10 mg PO DAILY 05/09/19 12/09/19 History Levothyroxine Sodium [Synthroid] 50 mcg PO PADILLA 05/09/19 12/09/19 History Yupelri 175mcg/3ml 175 mcg INHALATION RT-DAILY 05/09/19 12/09/19 History carvediloL [Coreg] 6.25 mg PO BID 05/09/19 12/09/19 History Clopidogrel [Plavix] 75 mg PO DAILY #30 tab 05/11/19 12/09/19 Rx Isosorbide Mononitrate ER [Imdur] 30 mg PO DAILY #30 tab.er.24h 05/11/19 12/09/19 Rx Potassium Chloride ER [K-Dur 20] 20 meq PO DAILY 08/03/19 12/09/19 History Melatonin 3 mg PO HS PRN tablet 08/04/19 12/09/19 Rx Albuterol Inhaler [Ventolin Hfa 2 puff INHALATION RT-QID PRN 10/02/19 12/09/19 History Inhaler] Promethaz-Cod 6.25-10 mg/5 ml 5 ml PO Q6HR PRN 10/02/19 12/09/19 History [Phenergan with Codeine] metFORMIN HCL [Glucophage] 500 mg PO BID-W/MEALS 10/02/19 12/09/19 History sitaGLIPtin PHOSPHATE [Januvia] 100 mg PO DAILY 10/02/19 12/09/19 History Escitalopram [Lexapro] 10 mg PO DAILY #10 tab 10/06/19 12/09/19 Rx Torsemide [Demadex] 40 mg PO DAILY #30 tab 10/06/19 12/09/19 Rx Loratadine [Claritin] 10 mg PO DAILY 12/09/19 12/09/19 History predniSONE [Deltasone] 20 mg PO BID 12/09/19 12/09/19 History Allergies Allergy/AdvReac Type Severity Reaction Status Date / Time No Known Allergies Allergy Verified 12/09/19 12:25 Physical Exam Vitals: Vital Signs Temp Pulse Pulse Resp BP BP Pulse Ox 12/10/19 10:00 86 15 96/55 90 L 12/10/19 09:30 89 20 89/62 91 L 12/10/19 09:00 92 11 L 92/62 93 L 12/10/19 08:30 97 14 114/53 90 L 12/10/19 08:10 82 12/10/19 08:00 98.9 F 82 14 86/58 90 L 12/10/19 07:53 92 12/10/19 07:30 96 19 100/71 89 L 12/10/19 07:00 100 14 100/56 90 L 12/10/19 06:30 74 13 90/59 89 L 12/10/19 06:00 100 15 93/78 90 L 12/10/19 05:30 73 16 104/57 91 L 12/10/19 05:00 93 16 94/48 91 L 12/10/19 04:30 96 14 97/57 90 L 12/10/19 04:00 107 H 15 88/52 90 L 12/10/19 03:57 101 H 12/10/19 03:48 77 12/10/19 03:30 78 17 103/58 82 L 12/10/19 03:00 101 H 18 101/52 89 L 12/10/19 02:30 81 12 103/55 88 L 12/10/19 02:12 88 12/10/19 02:00 82 19 100/60 89 L 12/10/19 01:59 92 10/06/20 01:30 86 16 94/74 89 L 12/10/19 01:00 89 14 104/57 90 L 12/10/19 00:34 94 16 89 L 12/10/19 00:30 80 10 L 96/66 89 L 12/10/19 00:00 97.6 F 86 14 90/50 90 L 12/09/19 23:30 78 16 113/62 89 L 12/09/19 23:00 99 20 95/54 89 L 12/09/19 22:30 91 11 L 91/53 88 L 12/09/19 22:00 105 H 13 97/61 88 L 12/09/19 21:30 82 13 92/59 88 L 12/09/19 21:00 75 15 85/54 89 L 12/09/19 20:30 98.5 F 86 13 102/63 88 L 12/09/19 20:00 103 H 19 88/55 90 L 12/09/19 19:30 80 11 L 103/51 91 L 12/09/19 19:00 80 17 96/61 89 L 12/09/19 18:30 92 15 95/60 94 L 12/09/19 18:25 91 20 12/09/19 18:12 93 15 12/09/19 18:00 94 14 95/60 92 L 12/09/19 17:30 82 15 102/52 91 L 12/09/19 17:00 84 17 90/69 90 L 12/09/19 16:30 96 28 H 92/64 91 L 12/09/19 16:00 98.0 F 105 H 15 93/70 92 L 12/09/19 15:30 95 18 109/65 91 L 12/09/19 15:20 93 20 12/09/19 15:11 101 H 30 H 12/09/19 15:00 105 H 21 104/68 87 L 12/09/19 14:48 97.2 F L 82 14 107/59 12/09/19 14:45 125 H 19 102/49 88 L 12/09/19 14:30 111 H 18 79/65 88 L 12/09/19 14:15 90 9 L 90/53 89 L 12/09/19 14:00 92 14 71/52 89 L 12/09/19 13:45 75 12 105/47 90 L 12/09/19 13:30 87 12 76/55 91 L 12/09/19 13:00 82 13 92/50 90 L 12/09/19 12:30 79 15 107/53 88 L 12/09/19 12:00 98.6 F 80 15 94/50 87 L 12/09/19 11:46 64 12/09/19 11:33 75 12/09/19 11:30 73 14 91/50 89 L 12/09/19 11:00 70 16 92/50 86 L 12/09/19 10:30 73 13 86/50 87 L Intake and Output 12/09/19 12/10/19 12/10/19 22:59 06:59 14:59 Intake Total 200 96 Output Total 255 280 125 Balance -55 -280 -29 Intake: IV 96 Rasburicase 6 mg In 46 Sodium Chloride 0.9% 46 ml @ 100 mls/hr IV ONCE ONE Rx#:[id number] cefTRIAXone 1 gm In 50 Sodium Chloride 0.9% 50 ml @ 100 mls/hr IVPB Q24HR [facility] Rx#:[id number] Intake, IV Titration 200 Amount Magnesium Sulfate-D5w Pmx 200 1 gm In Dextrose/Water 1 100ml.bag @ 100 mls/hr IVPB Q1H [facility] Rx#: [id number] Output: Urine 255 280 125 Other: Voiding Method Indwelling Catheter Indwelling Catheter Weight 91.2 kg PHYSICAL EXAMINATION: GENERAL: The patient is alert and oriented x3, patient is on in mild respiratory distress on BiPAP.. Well developed, well nourished. Patient is on BiPAP. HEENT: Pupils are round and equally reacting to light. EOMI. No scleral icterus. No conjunctival pallor. Normocephalic, atraumatic. No pharyngeal erythema. No thyromegaly. CARDIOVASCULAR: S1 and S2 present. No murmurs, rubs, or gallops. PULMONARY: There are probably some bibasilar crackles no significant wheezing was appreciated ABDOMEN: Soft, nontender, nondistended, normoactive bowel sounds. No palpable o rganomegaly. MUSCULOSKELETAL: No joint swelling or deformity. EXTREMITIES: No cyanosis, clubbing, or pedal edema. NEUROLOGICAL: Gross neurological examination did not reveal any focal deficits. SKIN: No rashes. Results CBC & Chem 7: 12/10/19 03:59 12/10/19 03:59 Labs: Abnormal Lab Results - Last 24 Hours (Table) 12/09/19 12/09/19 12/09/19 Range/Units 05:51 09:18 09:18 WBC (3.8-10.6) k/uL RBC (3.80-5.40) m/uL Hgb (11.4-16.0) gm/dL Hct (34.0-46.0) % MCV (80.0-100.0) fL MCHC (31.0-37.0) g/dL Plt Count (150-450) k/uL Lymphocytes # (Manual) (1.0-4.8) k/uL Retic Count 3.2 H (0.5-2.0) % Sodium (137-145) mmol/L Potassium (3.5-5.1) mmol/L BUN (7-17) mg/dL Creatinine (0.52-1.04) mg/dL Glucose (74-99) mg/dL Plasma Lactic Acid Charles 3.1 H* (0.7-2.0) mmol/L Uric Acid 12.1 H (3.7-7.4) mg/dL Calcium (8.4-10.2) mg/dL Magnesium (1.6-2.3) mg/dL TIBC (228-460) ug/dL Ferritin (10.0-291.0) ng/mL Total Protein (6.3-8.2) g/dL Total Protein (PEP) (6.2-8.2) g/dL Albumin (3.5-5.0) g/dL Hep Bs Antibody (Non-Reactive) 12/09/19 12/09/19 12/09/19 Range/Units 12:53 12:53 17:35 WBC (3.8-10.6) k/uL RBC (3.80-5.40) m/uL Hgb (11.4-16.0) gm/dL Hct (34.0-46.0) % MCV (80.0-100.0) fL MCHC (31.0-37.0) g/dL Plt Count (150-450) k/uL Lymphocytes # (Manual) (1.0-4.8) k/uL Retic Count (0.5-2.0) % Sodium 134 L (137-145) mmol/L Potassium 5.3 H (3.5-5.1) mmol/L BUN 81 H (7-17) mg/dL Creatinine 3.48 H (0.52-1.04) mg/dL Glucose 118 H (74-99) mg/dL Plasma Lactic Acid Charles (0.7-2.0) mmol/L Uric Acid (3.7-7.4) mg/dL Calcium 7.7 L (8.4-10.2) mg/dL Magnesium 1.5 L (1.6-2.3) mg/dL TIBC (228-460) ug/dL Ferritin (10.0-291.0) ng/mL Total Protein (6.3-8.2) g/dL Total Protein (PEP) (6.2-8.2) g/dL Albumin (3.5-5.0) g/dL Hep Bs Antibody Reactive H (Non-Reactive) 12/10/19 12/10/19 12/10/19 Range/Units 03:59 03:59 03:59 WBC 36.9 H (3.8-10.6) k/uL RBC 2.33 L (3.80-5.40) m/uL Hgb 7.5 L (11.4-16.0) gm/dL Hct 25.0 L (34.0-46.0) % MCV 107.5 H (80.0-100.0) fL MCHC 30.1 L (31.0-37.0) g/dL Plt Count 49 L (150-450) k/uL Lymphocytes # (Manual) 33.95 H (1.0-4.8) k/uL Retic Count (0.5-2.0) % Sodium 134 L (137-145) mmol/L Potassium 5.3 H (3.5-5.1) mmol/L BUN 80 H (7-17) mg/dL Creatinine 3.93 H (0.52-1.04) mg/dL Glucose 105 H (74-99) mg/dL Plasma Lactic Acid Charles (0.7-2.0) mmol/L Uric Acid (3.7-7.4) mg/dL Calcium 7.9 L (8.4-10.2) mg/dL Magnesium (1.6-2.3) mg/dL TIBC 217 L (228-460) ug/dL Ferritin 578.0 H (10.0-291.0) ng/mL Total Protein 5.3 L (6.3-8.2) g/dL Total Protein (PEP) 5.0 L (6.2-8.2) g/dL Albumin 3.3 L (3.5-5.0) g/dL Hep Bs Antibody (Non-Reactive) Microbiology - Last 24 Hours (Table) 12/09/19 01:36 Blood Culture - Preliminary Blood No Growth after 24 hours 12/09/19 03:48 Urine Culture - Preliminary Urine,Voided Thrombosis Risk Factor Assmnt - Choose All That Apply Any of the Below Risk Factors Present?: Yes Each Factor Represents 1 point: Abnormal pulmonary function (COPD), Obesity (BMI >25) Other Risk Factors: No Other congenital or acquired thrombophilia - If yes, enter type in comment: No Thrombosis Risk Factor Assessment Total Risk Factor Score: 2 Thrombosis Risk Factor Assessment Level: Low Risk Assessment and Plan Plan: -Acute hypoxic respiratory failure requiring BiPAP: Secondary to fluid overload from kidney failure and fluid retention. -Possible acute exacerbation of her chronic diastolic dysfunction -Acute on chronic renal failure stage V -Hyperkalemia: Secondary to acute renal failure, chronic kidney disease stage V. 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 This can be stopped. -COPD and chronic hypercapnic respiratory failure. Presently doesn't appear to be in acute exacerbation at this time -DVT prophylaxis with subcutaneous heparin
--- NOTE | 2019-12-10 10:42 | P.PN ---
Subjective HISTORY OF PRESENTING ILLNESS This is a pleasant 79-year-old female past medical history significant for coronary artery disease status post PCI in 2004 according to the patient, CLL, hypertension, dyslipidemia, COPD and obstructive sleep apnea. She follows in the office with Dr. Torre at [facility]. She is seen and examined l aying in bed in no acute distress. She continues to be on bipap. She underwent dialysis yesterday with 1-liter of fluid removal and will have repeat treatment today. She has gone into atrial fibrillation with mostly controlled rates. According to the patient she has no prior diagnosis of this in the past. She denies chest pain, shortness of breath, dizziness or palpitations. Blood pressure 96/55 heart rate 86 afebrile maintaining oxygen saturation on room air. Laboratory data reviewed, WBC 36.9, hemoglobin 7.5, platelets 49, sodium 134, potassium 5.3, creatinine 3.93. Echocardiogram obtained yesterday reveals preserved LV systolic function with ejection fraction 50-55%, moderately enlarged right ventricle, mildly dilated left atrium, moderate to severe tricuspid regurgitation and severe pulmonary hypertension with an RVSP of 61 mmHg. No records were obtained from her primary long term care administrator. PHYSICAL EXAMINATION CONSTITUTIONAL: No apparent distress. Obese. HEENT: Head is normocephalic. Pupils are equal, round. Sclerae anicteric. Mucous membranes of the mouth are moist. No JVD. No carotid bruit. CHEST EXAMINATION: Lungs are clear to auscultation. No chest wall tenderness is noted on palpation or with deep breathing. HEART EXAMINATION: Irregular rate and rhythm. S1, S2 heard. No murmurs, gallops or rub. Diminished bilaterally. EXTREMITIES: 2+ peripheral pulses, no lower extremity edema and no calf tenderness. ASSESSMENT Fluid overload secondary to acute kidney injury, currently on dialysis Acute on chronic diastolic heart failure Pulmonary hypertension New onset paroxysmal atrial fibrillation with controlled ventricular rates Chronic lymphocytic leukemia Leukocytosis, secondary to CLL. Baseline 40-50K Hyperkalemia Acute kidney injury Hypertension Dyslipidemia COPD Pulmonary hypertension Coronary artery disease status post PCI, exact details unavailable PLAN Request records from her primary long term care administrator for clarification on her cardiac history. Hold on anti-coagulation currently secondary to low platelet counts and anemia. Will discuss further with hematology as things improve. No rate lowering drugs needed at this point and her blood pressure is currently running low, if needed we will use lopressor for heart rates greater than 120. Further recommendations to follow based on clinical course. Nurse Practitioner note has been reviewed, I agree with a documented findings and plan of care. Patient was seen and examined. Objective - Vital Signs Vital signs: Vital Signs Temp 98.9 F 12/10/19 08:00 Pulse 86 12/10/19 10:00 Resp 15 12/10/19 10:00 BP 96/55 12/10/19 10:00 Pulse Ox 90 L 12/10/19 10:00 Intake & Output 12/09/19 12/10/19 12/10/19 18:59 06:59 18:59 Intake Total 100 200 96 Output Total 1340 385 125 Balance -1240 -185 -29 Weight 83.915 kg 91.2 kg Intake: IV 100 96 Calcium Gluconate 1 gm In 100 Sodium Chloride 0.9% 100 ml @ 100 mls/hr IVPB ONCE ONE Rx#:[id number] Rasburicase 6 mg In 46 Sodium Chloride 0.9% 46 ml @ 100 mls/hr IV ONCE ONE Rx#:[id number] cefTRIAXone 1 gm In 50 Sodium Chloride 0.9% 50 ml @ 100 mls/hr IVPB Q24HR [facility] Rx#:[id number] Intake, IV Titration 200 Amount Magnesium Sulfate-D5w Pmx 200 1 gm In Dextrose/Water 1 100ml.bag @ 100 mls/hr IVPB Q1H [facility] Rx#: [id number] Output: Urine 340 385 125 Hemodialysis 1000 Other: Voiding Method Indwelling Catheter Indwelling Catheter - Labs CBC & Chem 7: 12/10/19 03:59 12/10/19 03:59 Labs: Abnormal Lab Results - Last 24 Hours (Table) 12/09/19 12/09/19 12/09/19 Range/Units 05:51 09:18 09:18 WBC (3.8-10.6) k/uL RBC (3.80-5.40) m/uL Hgb (11.4-16.0) gm/dL Hct (34.0-46.0) % MCV (80.0-100.0) fL MCHC (31.0-37.0) g/dL Plt Count (150-450) k/uL Lymphocytes # (Manual) (1.0-4.8) k/uL Retic Count 3.2 H (0.5-2.0) % Sodium (137-145) mmol/L Potassium (3.5-5.1) mmol/L BUN (7-17) mg/dL Creatinine (0.52-1.04) mg/dL Glucose (74-99) mg/dL Plasma Lactic Acid Charles 3.1 H* (0.7-2.0) mmol/L Uric Acid 12.1 H (3.7-7.4) mg/dL Calcium (8.4-10.2) mg/dL Magnesium (1.6-2.3) mg/dL TIBC (228-460) ug/dL Ferritin (10.0-291.0) ng/mL Total Protein (6.3-8.2) g/dL Total Protein (PEP) (6.2-8.2) g/dL Albumin (3.5-5.0) g/dL Hep Bs Antibody (Non-Reactive) 12/09/19 12/09/19 12/09/19 Range/Units 12:53 12:53 17:35 WBC (3.8-10.6) k/uL RBC (3.80-5.40) m/uL Hgb (11.4-16.0) gm/dL Hct (34.0-46.0) % MCV (80.0-100.0) fL MCHC (31.0-37.0) g/dL Plt Count (150-450) k/uL Lymphocytes # (Manual) (1.0-4.8) k/uL Retic Count (0.5-2.0) % Sodium 134 L (137-145) mmol/L Potassium 5.3 H (3.5-5.1) mmol/L BUN 81 H (7-17) mg/dL Creatinine 3.48 H (0.52-1.04) mg/dL Glucose 118 H (74-99) mg/dL Plasma Lactic Acid Charles (0.7-2.0) mmol/L Uric Acid (3.7-7.4) mg/dL Calcium 7.7 L (8.4-10.2) mg/dL Magnesium 1.5 L (1.6-2.3) mg/dL TIBC (228-460) ug/dL Ferritin (10.0-291.0) ng/mL Total Protein (6.3-8.2) g/dL Total Protein (PEP) (6.2-8.2) g/dL Albumin (3.5-5.0) g/dL Hep Bs Antibody Reactive H (Non-Reactive) 12/10/19 12/10/19 12/10/19 Range/Units 03:59 03:59 03:59 WBC 36.9 H (3.8-10.6) k/uL RBC 2.33 L (3.80-5.40) m/uL Hgb 7.5 L (11.4-16.0) gm/dL Hct 25.0 L (34.0-46.0) % MCV 107.5 H (80.0-100.0) fL MCHC 30.1 L (31.0-37.0) g/dL Plt Count 49 L (150-450) k/uL Lymphocytes # (Manual) 33.95 H (1.0-4.8) k/uL Retic Count (0.5-2.0) % Sodium 134 L (137-145) mmol/L Potassium 5.3 H (3.5-5.1) mmol/L BUN 80 H (7-17) mg/dL Creatinine 3.93 H (0.52-1.04) mg/dL Glucose 105 H (74-99) mg/dL Plasma Lactic Acid Charles (0.7-2.0) mmol/L Uric Acid (3.7-7.4) mg/dL Calcium 7.9 L (8.4-10.2) mg/dL Magnesium (1.6-2.3) mg/dL TIBC 217 L (228-460) ug/dL Ferritin 578.0 H (10.0-291.0) ng/mL Total Protein 5.3 L (6.3-8.2) g/dL Total Protein (PEP) 5.0 L (6.2-8.2) g/dL Albumin 3.3 L (3.5-5.0) g/dL Hep Bs Antibody (Non-Reactive) Microbiology - Last 24 Hours (Table) 12/09/19 01:36 Blood Culture - Preliminary Blood No Growth after 24 hours 12/09/19 03:48 Urine Culture - Preliminary Urine,Voided
[2019-12-10 11:56] LABS: Free Kappa Lt Chain Qnt, Serum 1.45 mg/dL (0.33-1.94)
--- NOTE | 2019-12-10 12:37 | P.PN ---
Subjective Progress Note Date: 12/10/19 79-year-old female patient well-known to me. Patient has known history of advanced COPD, chronic hypoxic respiratory failure maintained on oxygen between 4 and 5 L per minute nasal cannula, severe obstructive sleep apnea with declined CPAP therapy over the years, history of coronary artery disease, history of CLL and severe pulmonary hypertension with right-sided heart failure. I have known this patient for many years and I'm taking care of her. She has been having progressive decline in her overall condition and health status. She has also component of chronic kidney disease. She came into the emergency department after having some worsening shortness of breath. She tried to fight it off at home. Nevertheless, ultimately condition got worse and she came into the hospital where she was utilized to have a acute on top of chronic kidney failure with a creatinine up to 5.7 and a potassium level of 8.6. The patient received the combination of treatment for hyperkalemia including IV calcium, IV bicarbonate and IV Lasix in addition to nebulized albuterol nebulized treatments and IV insulin with D50 sugar. Potassium level gradually came down to 7.2 from a baseline of 8.6. Nevertheless it was not enough and the patient also has a component of fluid overload and the urine output was in the order of 20 mL an hour. At that point I decided to proceed with dialysis in regards to hyper lipidemia. The patient uses only 200 mL of urine output following an 80 mg IV Lasix push and dialysis catheter was inserted by vascular surgery and the patient will be proceeding with dialysis. Noted the proBNP level is elevated and the chest x-ray is consistent with CHF and fluid overload. The patient is currently on a BiPAP at a pressure of 12/6 cm of water with an FiO2 of 50%. She is arousable pH is communicating. No significant cardiac arrhythmias related to hyperkalemia. Her basal lactic acid level was at 3.7 and came up to 1.7. On today's evaluation of 12/10/2019, the patient is awake and alert and she is communicating pH was taken off the BiPAP this morning and the patient was placed on 15 L high flow oxygen. The patient is doing well. She is communicating pH is alert and oriented 3. As mentioned earlier, the patient was started on hemodialysis and she was infiltrated with removal of 1 L of fluid. Chest x-ray still showing some increased volume yet improved compared to earlier chest x- rays. No fever. No chills. No chest pain. There is adequate urine output in the order of 30-40 mL an hour and the patient is also receiving IV Lasix at a dose of 60 mg every 12 hours. The patient's creatinine is at 3.9 with a BUN of 80. Potassium level has also improved is down to 5.3. Note that overnight, the patient slept on BiPAP at a pressure of 12/6 cm of water. She is moving all 4 extremities. Lactic acid level has also improved. The urine is showing gram-negative bacillus and the patient is currently covered with IV Rocephin. Objective - Vital Signs Vital signs: Vital Signs Temp 97.9 F 12/10/19 12:00 Pulse 89 12/10/19 12:22 Resp 14 12/10/19 12:00 BP 89/54 12/10/19 12:00 Pulse Ox 92 L 12/10/19 12:00 Intake & Output 12/09/19 12/10/19 12/10/19 18:59 06:59 18:59 Intake Total 100 200 96 Output Total 1340 385 185 Balance -1240 -185 -89 Weight 83.915 kg 91.2 kg Intake: IV 100 96 Calcium Gluconate 1 gm In 100 Sodium Chloride 0.9% 100 ml @ 100 mls/hr IVPB ONCE ONE Rx#:[id number] Rasburicase 6 mg In 46 Sodium Chloride 0.9% 46 ml @ 100 mls/hr IV ONCE ONE Rx#:[id number] cefTRIAXone 1 gm In 50 Sodium Chloride 0.9% 50 ml @ 100 mls/hr IVPB Q24HR [facility] Rx#:[id number] Intake, IV Titration 200 Amount Magnesium Sulfate-D5w Pmx 200 1 gm In Dextrose/Water 1 100ml.bag @ 100 mls/hr IVPB Q1H [facility] Rx#: [id number] Output: Urine 340 385 185 Hemodialysis 1000 Other: Voiding Method Indwelling Catheter Indwelling Catheter Indwelling Catheter - Exam General Appearance no diaphoresis, no respiratory distress, speech not interrupted by breaths, no dyspnea, no pallor, not cachectic, well nourished, appears well, morbid obesity. The patient is awake and alert. And oriented. The patient is currently on 15 L of oxygen by nasal cannula. Head exam was generally normal. There was no scleral icterus or corneal arcus. Mucous membranes were moist. Neck was supple and without jugular venous distension, thyromegaly, or carotid bruits. Carotids were easily palpable bilaterally. There was no adenopathy. Classification: Class 4 Chest no sternocleidomastoid muscle contractions, no supraclavicular retractions, no intercostal retractions, no decreased air movement, no rhonchi, barrel chest, prolonged expiratory wheezing, decreased air movement, hyperin flation Heart no right ventricular heave, no distant heart sounds, no s3 gallop, (normal) jugular vein: jugular venous distention: by 0cm GI bowel sounds: hyperactive (borborygmi), bowel sounds: diminished or absent Extremities no cyanosis, no clubbing, no edema Neurologic alert and oriented 3 and the patient has no significant somnolence, no somnolence, no confusion, moaning all 4 extremities without any limitation Examination of the skin revealed no evidence of significant rashes, suspicious appearing nevi or other concerning lesions. - Labs CBC & Chem 7: 12/10/19 03:59 12/10/19 03:59 Labs: Abnormal Lab Results - Last 24 Hours (Table) 12/09/19 12/09/19 12/09/19 Range/Units 05:51 12:53 12:53 WBC (3.8-10.6) k/uL RBC (3.80-5.40) m/uL Hgb (11.4-16.0) gm/dL Hct (34.0-46.0) % MCV (80.0-100.0) fL MCHC (31.0-37.0) g/dL Plt Count (150-450) k/uL Lymphocytes # (Manual) (1.0-4.8) k/uL Retic Count 3.2 H (0.5-2.0) % Sodium (137-145) mmol/L Potassium (3.5-5.1) mmol/L BUN (7-17) mg/dL Creatinine (0.52-1.04) mg/dL Glucose (74-99) mg/dL Calcium (8.4-10.2) mg/dL Magnesium 1.5 L (1.6-2.3) mg/dL TIBC (228-460) ug/dL Ferritin (10.0-291.0) ng/mL Total Protein (6.3-8.2) g/dL Total Protein (PEP) (6.2-8.2) g/dL Albumin (3.5-5.0) g/dL Hep Bs Antibody Reactive H (Non-Reactive) 12/09/19 12/10/19 12/10/19 Range/Units 17:35 03:59 03:59 WBC (3.8-10.6) k/uL RBC (3.80-5.40) m/uL Hgb (11.4-16.0) gm/dL Hct (34.0-46.0) % MCV (80.0-100.0) fL MCHC (31.0-37.0) g/dL Plt Count (150-450) k/uL Lymphocytes # (Manual) (1.0-4.8) k/uL Retic Count (0.5-2.0) % Sodium 134 L 134 L (137-145) mmol/L Potassium 5.3 H 5.3 H (3.5-5.1) mmol/L BUN 81 H 80 H (7-17) mg/dL Creatinine 3.48 H 3.93 H (0.52-1.04) mg/dL Glucose 118 H 105 H (74-99) mg/dL Calcium 7.7 L 7.9 L (8.4-10.2) mg/dL Magnesium (1.6-2.3) mg/dL TIBC 217 L (228-460) ug/dL Ferritin 578.0 H (10.0-291.0) ng/mL Total Protein 5.3 L (6.3-8.2) g/dL Total Protein (PEP) 5.0 L (6.2-8.2) g/dL Albumin 3.3 L (3.5-5.0) g/dL Hep Bs Antibody (Non-Reactive) 12/10/19 Range/Units 03:59 WBC 36.9 H (3.8-10.6) k/uL RBC 2.33 L (3.80-5.40) m/uL Hgb 7.5 L (11.4-16.0) gm/dL Hct 25.0 L (34.0-46.0) % MCV 107.5 H (80.0-100.0) fL MCHC 30.1 L (31.0-37.0) g/dL Plt Count 49 L (150-450) k/uL Lymphocytes # (Manual) 33.95 H (1.0-4.8) k/uL Retic Count (0.5-2.0) % Sodium (137-145) mmol/L Potassium (3.5-5.1) mmol/L BUN (7-17) mg/dL Creatinine (0.52-1.04) mg/dL Glucose (74-99) mg/dL Calcium (8.4-10.2) mg/dL Magnesium (1.6-2.3) mg/dL TIBC (228-460) ug/dL Ferritin (10.0-291.0) ng/mL Total Protein (6.3-8.2) g/dL Total Protein (PEP) (6.2-8.2) g/dL Albumin (3.5-5.0) g/dL Hep Bs Antibody (Non-Reactive) Microbiology - Last 24 Hours (Table) 12/09/19 03:48 Urine Culture - Preliminary Urine,Voided Gram Neg Bacilli 12/09/19 01:36 Blood Culture - Preliminary Blood No Growth after 24 hours Assessment and Plan Plan: 1 acute hypoxic respiratory failure currently on BiPAP for respiratory support at a pressure of 12/6 cm of water and FiO2 of 60%. Chest x-ray is consistent with cardiomegaly and fluid overload/CHF. The blood gases showing a combination of metabolic acidosis and chronic hypoxemia. The patient's condition is improved and the patient got dialyzed yesterday with ultrafiltration of 1 L. The patient's chest x-ray showing some ongoing four-vessel congestion yet overa ll aeration is improved and the patient is currently on 15 L of oxygen by nasal cannula. She was taken off the BiPAP this morning. 2 acute on chronic kidney failure. The patient presented with severe hyperkalemia and fluid overload. The patient did not respond to conventional treatment of hyperkalemia and the patient underwent dialysis yesterday, first session and a second session will be done today. Creatinine stable at 3.9. Potassium level is improved. Producing urine output in the order of 20-30 mL an hour and the patient is currently on Lasix 60 mg every 12 hours. 3 acute hyperkalemia secondary to above, improved 4 severe COPD with chronic hypoxic and hypercapnic respiratory failure patient wears for a half liters of oxygen on a regular basis, and she is maintained on a combination of Primacor, Perforomist, Yupelri, and albuterol rescue inhaler on an as-needed basis 5. Secondary pulmonary hypertension with a preserved LV function and ejection fraction of 55% 6. Chronic lymphoid leukemia, with chronic lymphocytosis and chronic anemia with thrombocytopenia 7 History of hypogammaglobulinemia and she is on supplements 8. essential hypertension 9 coronary arteriosclerosis 10. 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 11 hyperuricemia 12 troponin leak 13 questionable UTI currently on IV Rocephin, and the cultures showing gram- negative bacillus. Plan Continue BiPAP for Celia support on and off during the day and for now the patient is on 15 L about 2 by nasal cannula Agree with hemodialysis, in a second session of hemodialysis was done today Continue 60 mg IV push every 12 hours Continue IV Rocephin regarding the possibility of a gram-negative urine checked infection Monitor potassium level Avoid nephrotoxic agents Clinically the patient is much more alert and awake and she's improved We'll continue to follow.
[2019-12-10 13:18] LABS: Immunoglobulin A 51.2 mg/dL (60.0-350.0); Immunoglobulin M <16.9 mg/dL (40.0-280.0)
[2019-12-10 15:15] LABS: Albumin 3.13 g/dL (3.80-4.90); Gamma Globulin 0.58 g/dL (0.70-1.50)
[2019-12-10] MEDS ORDERED: NITROGLYCERIN SL TABS 0.4 MG TAB SUBLINGUAL PRN (15:44)
--- NOTE | 2019-12-10 16:16 | P.PN ---
Subjective Progress Note Date: 12/10/19 Doing a little better today. Dialysis was started 12/08. Renal function relatively same. Hemoglobin 7.5, platelets 49K Objective - Vital Signs Vital signs: Vital Signs Temp 97.9 F 12/10/19 13:46 Pulse 118 H 12/10/19 15:32 Resp 18 12/10/19 15:32 BP 115/97 12/10/19 15:00 Pulse Ox 87 L 12/10/19 15:18 Intake & Output 12/09/19 12/10/19 12/10/19 18:59 06:59 18:59 Intake Total 100 200 96 Output Total 4710 429 5308 Balance -6215 -519 -5767 Weight 83.915 kg 91.2 kg Intake: IV 100 96 Calcium Gluconate 1 gm In 100 Sodium Chloride 0.9% 100 ml @ 100 mls/hr IVPB ONCE ONE Rx#:[id number] Rasburicase 6 mg In 46 Sodium Chloride 0.9% 46 ml @ 100 mls/hr IV ONCE ONE Rx#:[id number] cefTRIAXone 1 gm In 50 Sodium Chloride 0.9% 50 ml @ 100 mls/hr IVPB Q24HR [facility] Rx#:[id number] Intake, IV Titration 200 Amount Magnesium Sulfate-D5w Pmx 200 1 gm In Dextrose/Water 1 100ml.bag @ 100 mls/hr IVPB Q1H [facility] Rx#: [id number] Output: Urine 340 385 205 Hemodialysis 1000 2000 Other: Voiding Method Indwelling Catheter Indwelling Catheter Indwelling Catheter - Exam - Constitutional General appearance: cooperative, no acute distress - EENT Eyes: EOMI ENT: hard of hearing, NA/AT - Neck Neck: normal ROM - Respiratory Respiratory: left: wheezing, bilateral: diminished - Cardiovascular Rhythm: regularly irregular leg Peripheral Edema: bilateral: 1+ - Gastrointestinal General gastrointestinal: normal bowel sounds, soft - Integumentary Integumentary: pale - Neurologic non focal - Musculoskeletal Musculoskeletal: generalized weakness - Psychiatric Flat affect - Labs CBC & Chem 7: 12/10/19 03:59 12/10/19 03:59 Labs: Abnormal Lab Results - Last 24 Hours (Table) 12/09/19 12/09/19 12/09/19 Range/Units 05:51 12:53 17:35 WBC (3.8-10.6) k/uL RBC (3.80-5.40) m/uL Hgb (11.4-16.0) gm/dL Hct (34.0-46.0) % MCV (80.0-100.0) fL MCHC (31.0-37.0) g/dL Plt Count (150-450) k/uL Lymphocytes # (Manual) (1.0-4.8) k/uL Retic Count 3.2 H (0.5-2.0) % Sodium 134 L (137-145) mmol/L Potassium 5.3 H (3.5-5.1) mmol/L BUN 81 H (7-17) mg/dL Creatinine 3.48 H (0.52-1.04) mg/dL Glucose 118 H (74-99) mg/dL Calcium 7.7 L (8.4-10.2) mg/dL TIBC (228-460) ug/dL Ferritin (10.0-291.0) ng/mL Total Protein (6.3-8.2) g/dL Total Protein (PEP) (6.2-8.2) g/dL Albumin (3.5-5.0) g/dL Albumin (PEP) (3.80-4.90) g/dL Beta Globulins (0.60-1.30) g/dL Gamma Globulins (0.70-1.50) g/dL IgG (700.0-1600.0) mg/dL IgA (60.0-350.0) mg/dL IgM (40.0-280.0) mg/dL Hep Bs Antibody Reactive H (Non-Reactive) 12/10/19 12/10/19 12/10/19 Range/Units 03:59 03:59 03:59 WBC (3.8-10.6) k/uL RBC (3.80-5.40) m/uL Hgb (11.4-16.0) gm/dL Hct (34.0-46.0) % MCV (80.0-100.0) fL MCHC (31.0-37.0) g/dL Plt Count (150-450) k/uL Lymphocytes # (Manual) (1.0-4.8) k/uL Retic Count (0.5-2.0) % Sodium 134 L (137-145) mmol/L Potassium 5.3 H (3.5-5.1) mmol/L BUN 80 H (7-17) mg/dL Creatinine 3.93 H (0.52-1.04) mg/dL Glucose 105 H (74-99) mg/dL Calcium 7.9 L (8.4-10.2) mg/dL TIBC 217 L (228-460) ug/dL Ferritin 578.0 H (10.0-291.0) ng/mL Total Protein 5.3 L (6.3-8.2) g/dL Total Protein (PEP) 5.0 L (6.2-8.2) g/dL Albumin 3.3 L (3.5-5.0) g/dL Albumin (PEP) 3.13 L (3.80-4.90) g/dL Beta Globulins 0.38 L (0.60-1.30) g/dL Gamma Globulins 0.58 L (0.70-1.50) g/dL IgG 637.0 L (700.0-1600.0) mg/dL IgA 51.2 L (60.0-350.0) mg/dL IgM <16.9 L (40.0-280.0) mg/dL Hep Bs Antibody (Non-Reactive) 12/10/19 Range/Units 03:59 WBC 36.9 H (3.8-10.6) k/uL RBC 2.33 L (3.80-5.40) m/uL Hgb 7.5 L (11.4-16.0) gm/dL Hct 25.0 L (34.0-46.0) % MCV 107.5 H (80.0-100.0) fL MCHC 30.1 L (31.0-37.0) g/dL Plt Count 49 L (150-450) k/uL Lymphocytes # (Manual) 33.95 H (1.0-4.8) k/uL Retic Count (0.5-2.0) % Sodium (137-145) mmol/L Potassium (3.5-5.1) mmol/L BUN (7-17) mg/dL Creatinine (0.52-1.04) mg/dL Glucose (74-99) mg/dL Calcium (8.4-10.2) mg/dL TIBC (228-460) ug/dL Ferritin (10.0-291.0) ng/mL Total Protein (6.3-8.2) g/dL Total Protein (PEP) (6.2-8.2) g/dL Albumin (3.5-5.0) g/dL Albumin (PEP) (3.80-4.90) g/dL Beta Globulins (0.60-1.30) g/dL Gamma Globulins (0.70-1.50) g/dL IgG (700.0-1600.0) mg/dL IgA (60.0-350.0) mg/dL IgM (40.0-280.0) mg/dL Hep Bs Antibody (Non-Reactive) Microbiology - Last 24 Hours (Table) 12/09/19 03:48 Urine Culture - Preliminary Urine,Voided Gram Neg Bacilli 12/09/19 01:36 Blood Culture - Preliminary Blood No Growth after 24 hours Assessment and Plan (1) Acute renal failure superimposed on chronic kidney disease, on chronic dialysis Current Visit: Yes Status: Acute Code(s): N17.9 - ACUTE KIDNEY FAILURE, UNSPECIFIED; N18.9 - CHRONIC KIDNEY DISEASE, UNSPECIFIED; Z99.2 - DEPENDENCE ON RENAL DIALYSIS SNOMED Code(s): 116234475 (2) CARLOS (acute kidney injury) Current Visit: Yes Status: Acute Code(s): N17.9 - ACUTE KIDNEY FAILURE, UNSPECIFIED SNOMED Code(s): 29288266 (3) CLL (chronic lymphocytic leukemia) Current Visit: Yes Status: Acute Code(s): C91.10 - CHRONIC LYMPHOCYTIC LEUK OF B-CELL TYPE NOT ACHIEVE REMIS SNOMED Code(s): 88522973 (4) COPD (chronic obstructive pulmonary disease) Current Visit: Yes Status: Acute Code(s): J44.9 - CHRONIC OBSTRUCTIVE PULMONARY DISEASE, UNSPECIFIED SNOMED Code(s): 28643229 (5) Congestive heart failure Current Visit: Yes Status: Acute Code(s): I50.9 - HEART FAILURE, UNSPECIFIED SNOMED Code(s): 94052550 (6) Leukocytosis Current Visit: No Status: Acute Code(s): D72.829 - ELEVATED WHITE BLOOD CELL COUNT, UNSPECIFIED SNOMED Code(s): 641038708 (7) Macrocytic anemia Current Visit: Yes Status: Acute Code(s): D53.9 - NUTRITIONAL ANEMIA, UNSPECIFIED SNOMED Code(s): 84948248 Plan: Assessment and Plan: Acute on Chronic Hypoxic Respiratory Failure: - Pulmonology Following and monitored in ICU Acute Renal Failure on Chronic Kidney Disease: Stage unknown - Nephrology FOllowing - Hemodialysis to start today Chronic Lymphocytic Leukemia: Stable disease - Maintained on observation with recent CT suspicious of worsening disease, although her WBC has been relatively unchanged and at her baseline 40-50K. Discussed further with primary oncologist and at this time no treatment recommended. Worsening Macrocytic Anemia: - This is likely worsening related to her worsening renal function although other causes will need to be evaluated - Anemia work-up for nutritional deficiency for ability to replace any deficiencies ordered - Hemolysis work-up negative - hemoglobin 7.5 today - transfuse during dialysis if less than 7 - Erythropoetin Pending Thrombocytopenia: - platelets 49K - Hold Anticoagulation when less than 50K - Transfuse Platelets if less than 10K SIRS 2/4 - - Potential UTI, abx per primary team - Will check IgG for potential need of IVIG Leukocytosis: Secondary to CLL, exacerbated by infection - TLS bloodwork ordered - [employer] Ordered today 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 Physician Attest: I have completed the full history and physcial and agree with above dictation, dictated as a scribe. Case was also discussed in full with nephrology
[2019-12-10 16:41] LABS: Glucose,Whole Blood 205 mg/dL (75-99)
--- NOTE | 2019-12-10 17:01 | P.PN ---
Subjective 79-year-old the pleasant female came in with the worsening shortness of breath. Patient is found to have worsening renal function it has been progressively worsening patient is found to have elevated potassium of 8.6. Patient was treated with multiple doses of IV calcium gluconate, Lasix, insulin with D50 in spite of which potassium didn't respond very well because of which patient had emergent dialysis. Patient does make urine. Patient was volume overloaded because of her decreased urine output. Patient the appears to have chronic kidney disease stage IV above. Patient had elevation in serum creatinine for her his baseline. There is no evidence of infection at this time patient denied any dysuria patient denied any cough fever chills. As per the nephrology patient may have some acute blood necrosis. Patient is definitely bit volume overloaded BNP is elevated at this volume overload is probably secondary to renal failure. Although patient may have some chronic diastolic dysfunction. Cardiology evaluate the patient as well. Echocardiogram is being obtained. 12/10/2019 Patient had significant improvement in respiratory status patient is presently on the around 30 L of oxygen. Saturating well. Patient looks better serum potassium improved. Patient did undergo hemodialysis today as well. Patient urine cultures are positive for gram-negative bacilli patient is on Rocephin for urinary tract infection. Constitutional: Denied any fatigue denied any fever. Cardio vascular: denied any chest pain, palpitations Gastrointestinal denied any nausea vomiting Pulmonary: Denied any shortness of breath cough Neurologic denied any new focal deficits All inpatient medications were reviewed and appropriate changes in these medications as dictated in the interval history and assessment and plan. Objective - Vital Signs Vital signs: Vital Signs Temp 98.3 F 12/10/19 16:00 Pulse 107 H 12/10/19 16:00 Resp 12 12/10/19 16:00 BP 96/60 12/10/19 16:00 Pulse Ox 90 L 12/10/19 16:00 Intake & Output 12/09/19 12/10/19 12/10/19 18:59 06:59 18:59 Intake Total 100 200 96 Output Total 8660 977 2058 Balance -4271 -627 -2548 Weight 83.915 kg 91.2 kg Intake: IV 100 96 Calcium Gluconate 1 gm In 100 Sodium Chloride 0.9% 100 ml @ 100 mls/hr IVPB ONCE ONE Rx#:[id number] Rasburicase 6 mg In 46 Sodium Chloride 0.9% 46 ml @ 100 mls/hr IV ONCE ONE Rx#:[id number] cefTRIAXone 1 gm In 50 Sodium Chloride 0.9% 50 ml @ 100 mls/hr IVPB Q24HR [facility] Rx#:[id number] Intake, IV Titration 200 Amount Magnesium Sulfate-D5w Pmx 200 1 gm In Dextrose/Water 1 100ml.bag @ 100 mls/hr IVPB Q1H [facility] Rx#: [id number] Output: Urine 340 385 225 Hemodialysis 1000 2000 Other: Voiding Method Indwelling Catheter Indwelling Catheter Indwelling Catheter - Exam PHYSICAL EXAMINATION: GENERAL: The patient is alert and oriented x3, not in any acute distress. Well developed, well nourished. HEENT: Pupils are round and equally reacting to light. EOMI. No scleral icterus. No conjunctival pallor. Normocephalic, atraumatic. No pharyngeal erythema. No thyromegaly. CARDIOVASCULAR: S1 and S2 present. No murmurs, rubs, or gallops. PULMONARY: Chest is clear to auscultation, no wheezing or crackles. ABDOMEN: Soft, nontender, nondistended, normoactive bowel sounds. No palpable organomegaly. MUSCULOSKELETAL: No joint swelling or deformity. EXTREMITIES: No cyanosis, clubbing, or pedal edema. NEUROLOGICAL: Gross neurological examination did not reveal any focal deficits. SKIN: No rashes. - Labs CBC & Chem 7: 12/10/19 03:59 12/10/19 03:59 Labs: Abnormal Lab Results - Last 24 Hours (Table) 12/09/19 12/09/19 12/09/19 Range/Units 05:51 12:53 17:35 WBC (3.8-10.6) k/uL RBC (3.80-5.40) m/uL Hgb (11.4-16.0) gm/dL Hct (34.0-46.0) % MCV (80.0-100.0) fL MCHC (31.0-37.0) g/dL Plt Count (150-450) k/uL Lymphocytes # (Manual) (1.0-4.8) k/uL Retic Count 3.2 H (0.5-2.0) % Sodium 134 L (137-145) mmol/L Potassium 5.3 H (3.5-5.1) mmol/L BUN 81 H (7-17) mg/dL Creatinine 3.48 H (0.52-1.04) mg/dL Glucose 118 H (74-99) mg/dL POC Glucose (mg/dL) (75-99) mg/dL Calcium 7.7 L (8.4-10.2) mg/dL TIBC (228-460) ug/dL Ferritin (10.0-291.0) ng/mL Total Protein (6.3-8.2) g/dL Total Protein (PEP) (6.2-8.2) g/dL Albumin (3.5-5.0) g/dL Albumin (PEP) (3.80-4.90) g/dL Beta Globulins (0.60-1.30) g/dL Gamma Globulins (0.70-1.50) g/dL IgG (700.0-1600.0) mg/dL IgA (60.0-350.0) mg/dL IgM (40.0-280.0) mg/dL Hep Bs Antibody Reactive H (Non-Reactive) 12/10/19 12/10/19 12/10/19 Range/Units 03:59 03:59 03:59 WBC (3.8-10.6) k/uL RBC (3.80-5.40) m/uL Hgb (11.4-16.0) gm/dL Hct (34.0-46.0) % MCV (80.0-100.0) fL MCHC (31.0-37.0) g/dL Plt Count (150-450) k/uL Lymphocytes # (Manual) (1.0-4.8) k/uL Retic Count (0.5-2.0) % Sodium 134 L (137-145) mmol/L Potassium 5.3 H (3.5-5.1) mmol/L BUN 80 H (7-17) mg/dL Creatinine 3.93 H (0.52-1.04) mg/dL Glucose 105 H (74-99) mg/dL POC Glucose (mg/dL) (75-99) mg/dL Calcium 7.9 L (8.4-10.2) mg/dL TIBC 217 L (228-460) ug/dL Ferritin 578.0 H (10.0-291.0) ng/mL Total Protein 5.3 L (6.3-8.2) g/dL Total Protein (PEP) 5.0 L (6.2-8.2) g/dL Albumin 3.3 L (3.5-5.0) g/dL Albumin (PEP) 3.13 L (3.80-4.90) g/dL Beta Globulins 0.38 L (0.60-1.30) g/dL Gamma Globulins 0.58 L (0.70-1.50) g/dL IgG 637.0 L (700.0-1600.0) mg/dL IgA 51.2 L (60.0-350.0) mg/dL IgM <16.9 L (40.0-280.0) mg/dL Hep Bs Antibody (Non-Reactive) 12/10/19 12/10/19 Range/Units 03:59 16:39 WBC 36.9 H (3.8-10.6) k/uL RBC 2.33 L (3.80-5.40) m/uL Hgb 7.5 L (11.4-16.0) gm/dL Hct 25.0 L (34.0-46.0) % MCV 107.5 H (80.0-100.0) fL MCHC 30.1 L (31.0-37.0) g/dL Plt Count 49 L (150-450) k/uL Lymphocytes # (Manual) 33.95 H (1.0-4.8) k/uL Retic Count (0.5-2.0) % Sodium (137-145) mmol/L Potassium (3.5-5.1) mmol/L BUN (7-17) mg/dL Creatinine (0.52-1.04) mg/dL Glucose (74-99) mg/dL POC Glucose (mg/dL) 205 H (75-99) mg/dL Calcium (8.4-10.2) mg/dL TIBC (228-460) ug/dL Ferritin (10.0-291.0) ng/mL Total Protein (6.3-8.2) g/dL Total Protein (PEP) (6.2-8.2) g/dL Albumin (3.5-5.0) g/dL Albumin (PEP) (3.80-4.90) g/dL Beta Globulins (0.60-1.30) g/dL Gamma Globulins (0.70-1.50) g/dL IgG (700.0-1600.0) mg/dL IgA (60.0-350.0) mg/dL IgM (40.0-280.0) mg/dL Hep Bs Antibody (Non-Reactive) Microbiology - Last 24 Hours (Table) 12/09/19 03:48 Urine Culture - Preliminary Urine,Voided Gram Neg Bacilli 12/09/19 01:36 Blood Culture - Preliminary Blood No Growth after 24 hours Assessment and Plan Plan: -Acute hypoxic respiratory failure requiring BiPAP on admission presently on aspirin and Lanoxin: Secondary to fluid overload from kidney failure and fluid retention. -Possible acute exacerbation of her chronic diastolic dysfunction -Acute on chronic renal failure stage V -Hyperkalemia: Secondary to acute renal failure, chronic kidney disease stage V. Was started on hemodialysis improved serum potassium. 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 -COPD and chronic hypercapnic respiratory failure. Presently doesn't appear to be in acute exacerbation at this time -DVT prophylaxis with subcutaneous heparin
[2019-12-10] MEDS: BUDESONIDE 0.5 MG/2 ML NEBU INHALATION SCH (18:54)
[2019-12-10] MEDS: ATORVASTATIN 40 MG TAB PO SCH (20:02)
[2019-12-10] MEDS: HEPARIN SODIUM,PORCINE 5,000 UNIT/ML 1 ML VIAL SQ SCH ×2 (20:02→20:07)
[2019-12-11] MEDS: IPRATROPIUM-ALBUTEROL 3 ML NEB INHALATION SCH ×7 (01:24→23:43)
[2019-12-11 03:58] LABS: HCT 25.6 % (34.0-46.0); HGB 7.8 gm/dL (11.4-16.0); Hypochromasia Marked; MCH 34.4 pg (25.0-35.0); MCHC 30.5 g/dL (31.0-37.0); Macrocytosis Marked; Mean Platelet Volume 9.3; RBC 2.27 m/uL (3.80-5.40); RDW 14.4 % (11.5-15.5)
[2019-12-11 03:59] LABS: MCV 112.7 fL (80.0-100.0); Platelet Count 34 k/uL (150-450)
[2019-12-11 04:02] LABS: Potassium 4.4 mmol/L (3.5-5.1)
[2019-12-11 05:39] LABS: Lymphocytes # (M) 29.92 k/uL (1.0-4.8); Neutrophils # (M) 4.08 k/uL (1.3-7.7); Neutrophils % (M) 12 %; Nucleated Red Blood Cells 0 /100 WBC (0-0); Total Cells Counted 100
[2019-12-11] MEDS: LEVOTHYROXINE 100 MCG TAB PO SCH (05:53)
--- NOTE | 2019-12-11 07:39 | XR ---
EXAMINATION TYPE: XR chest 1V DATE OF EXAM: 12/11/2019 HISTORY: Shortness of breath. COMPARISON: 12/10/2019 TECHNIQUE: Single view of the chest is submitted. FINDINGS: Demonstrated are scattered senescent parenchymal change. Basilar atelectasis and/or infiltrate without significant change. The heart is stable. Hilar and mediastinal structures are within normal limits. Degenerative changes are seen of the dorsal spine. IMPRESSION: 1. Basilar atelectasis and/or infiltrate without significant change.
[2019-12-11] MEDS: BUDESONIDE 0.5 MG/2 ML NEBU INHALATION SCH ×2 (08:00→19:06)
[2019-12-11] MEDS ORDERED: HEPARIN SODIUM,PORCINE 5,000 UNIT/ML 1 ML VIAL IV ONE (08:04)
[2019-12-11] MEDS ORDERED: HEPARIN SODIUM,PORCINE 5,000 UNIT/ML 1 ML VIAL IV PRN (08:04)
[2019-12-11] MEDS ORDERED: HEPARIN SOD,PORK IN 0.45% NACL 25,000 UNIT in 0.45% NACL 1 250ML.BAG IV SCH (08:15)
[2019-12-11] MEDS: ASPIRIN 81 MG PO SCH (08:20)
[2019-12-11] MEDS: PANTOPRAZOLE 40 MG/10 ML VIAL IV SCH (08:20)
[2019-12-11] MEDS: METOPROLOL TARTRATE 25 MG TAB PO SCH ×2 (08:20→20:18)
[2019-12-11] MEDS: FUROSEMIDE 10 MG/ML 10 ML VIAL IV SCH ×2 (08:20→20:18)
[2019-12-11] MEDS: EZETIMIBE 10 MG TAB PO SCH (08:21)
[2019-12-11] MEDS: ESCITALOPRAM 10 MG TAB PO SCH (08:21)
--- NOTE | 2019-12-11 09:48 | P.PN ---
Subjective HISTORY OF PRESENTING ILLNESS This is a pleasant 79-year-old female past medical history significant for coronary artery disease status post PCI in 2004 according to the patient, CLL, hypertension, dyslipidemia, COPD and obstructive sleep apnea. She follows in the office with Dr. Torre at [facility]. She is seen and examined s itting up in bed in no acute distress. Her heart rates have been elevated most of the night according to the nursing staff. She denies palpitations or chest pain. She is uncomfortable in bed and would like to sit up, however dialysis team is currently setting up to start her treatment. Blood pressure 114/84 heart rate 133 afebrile maintaining oxygen saturation on nasal cannula. Laboratory data reviewed, WBC 34, hemoglobin 7.8, platelets 34, sodium 139, potassium 4.4, creatinine 2.54. Chest x-ray today reveals basilar atelectasis and infiltrate without significant change from previous study. PHYSICAL EXAMINATION CONSTITUTIONAL: No apparent distress. Obese. HEENT: Head is normocephalic. Pupils are equal, round. Sclerae anicteric. Mucous membranes of the mouth are moist. No JVD. No carotid bruit. CHEST EXAMINATION: Bibasilar rales. No wheezes or rhonchi. No chest wall tenderness is noted on palpation or with deep breathing. HEART EXAMINATION: Irregular rate and rhythm. S1, S2 heard. No murmurs, gallops or rub. Diminished bilaterally. EXTREMITIES: 2+ peripheral pulses, no lower extremity edema and no calf tenderness. ASSESSMENT Fluid overload secondary to acute kidney injury, currently on dialysis Acute on chronic diastolic heart failure Pulmonary hypertension New onset paroxysmal atrial fibrillation with rapid ventricular rates Chronic lymphocytic leukemia Leukocytosis, secondary to CLL. Baseline 40-50K Hyperkalemia Thrombocytopenia Acute kidney injury Hypertension Dyslipidemia COPD Pulmonary hypertension Coronary artery disease status post PCI,OM in 2004 and distal circumflex 2007 PLAN Discussed the patient's history history with her cloud solutions architect and confirmed her most recent PCI was in 2007. Given new onset atrial fibrillation it would consider long-term anticoagulation on her once her blood counts improve. Plavix can be discontinued. Initiate Lopressor 25 mg twice a day, hold for systolic blood pressure less than 90 or heart rate less than 55. Further recommendations to follow based upon clinical course. Nurse Practitioner note has been reviewed, I agree with a documented findings and plan of care. Patient was seen and examined. Objective - Vital Signs Vital signs: Vital Signs Temp 98.3 F 12/11/19 08:00 Pulse 133 H 12/11/19 09:00 Resp 12 12/11/19 09:00 BP 114/84 12/11/19 09:00 Pulse Ox 92 L 12/11/19 09:00 Intake & Output 12/10/19 12/11/19 12/11/19 18:59 06:59 18:59 Intake Total 96 160 Output Total 2250 345 40 Balance -2154 -345 120 Weight 89.3 kg Intake: IV 96 60 .9NS 10 Rasburicase 6 mg In 46 Sodium Chloride 0.9% 46 ml @ 100 mls/hr IV ONCE ONE Rx#:[id number] cefTRIAXone 1 gm In 50 50 Sodium Chloride 0.9% 50 ml @ 100 mls/hr IVPB Q24HR [facility] Rx#:[id number] Oral 100 Output: Urine 250 345 40 Hemodialysis 2000 Other: Voiding Method Indwelling Catheter Indwelling Catheter - Labs CBC & Chem 7: 12/11/19 02:58 12/11/19 02:58 Labs: Abnormal Lab Results - Last 24 Hours (Table) 12/10/19 12/10/19 12/10/19 Range/Units 03:59 03:59 03:59 WBC (3.8-10.6) k/uL RBC (3.80-5.40) m/uL Hgb (11.4-16.0) gm/dL Hct (34.0-46.0) % MCV (80.0-100.0) fL MCHC (31.0-37.0) g/dL Plt Count (150-450) k/uL Lymphocytes # (Manual) (1.0-4.8) k/uL Macrocytosis BUN (7-17) mg/dL Creatinine (0.52-1.04) mg/dL Glucose (74-99) mg/dL POC Glucose (mg/dL) (75-99) mg/dL Calcium (8.4-10.2) mg/dL Ferritin 578.0 H (10.0-291.0) ng/mL Albumin (PEP) 3.13 L (3.80-4.90) g/dL Beta Globulins 0.38 L (0.60-1.30) g/dL Gamma Globulins 0.58 L (0.70-1.50) g/dL IgG 637.0 L (700.0-1600.0) mg/dL IgA 51.2 L (60.0-350.0) mg/dL IgM <16.9 L (40.0-280.0) mg/dL 12/10/19 12/11/19 12/11/19 Range/Units 16:39 02:58 02:58 WBC 34.0 H (3.8-10.6) k/uL RBC 2.27 L (3.80-5.40) m/uL Hgb 7.8 L (11.4-16.0) gm/dL Hct 25.6 L (34.0-46.0) % MCV 112.7 H D (80.0-100.0) fL MCHC 30.5 L (31.0-37.0) g/dL Plt Count 34 L (150-450) k/uL Lymphocytes # (Manual) 29.92 H (1.0-4.8) k/uL Macrocytosis Marked A BUN 43 H (7-17) mg/dL Creatinine 2.54 H (0.52-1.04) mg/dL Glucose 113 H (74-99) mg/dL POC Glucose (mg/dL) 205 H (75-99) mg/dL Calcium 8.0 L (8.4-10.2) mg/dL Ferritin (10.0-291.0) ng/mL Albumin (PEP) (3.80-4.90) g/dL Beta Globulins (0.60-1.30) g/dL Gamma Globulins (0.70-1.50) g/dL IgG (700.0-1600.0) mg/dL IgA (60.0-350.0) mg/dL IgM (40.0-280.0) mg/dL Microbiology - Last 24 Hours (Table) 12/09/19 01:36 Blood Culture - Preliminary Blood No Growth after 48 hours 12/09/19 03:48 Urine Culture - Preliminary Urine,Voided Gram Neg Bacilli
--- NOTE | 2019-12-11 10:18 | P.PN ---
Subjective Patient is seen in follow-up for acute kidney injury on chronic kidney disease and hyperkalemia. Started on hemodialysis December 08 due to oliguria and persistent hyperkalemia. Tolerated 2 L ultrafiltration yesterday. blood pressure stable. Not any vasopressors. currently awake and alert. No active chest pain or shortness of breath. Vital signs are stable. General: The patient appeared well nourished and normally developed. HEENT: Head exam is unremarkable. Neck is without jugular venous distension. LUNGS: Breath sounds decreased. HEART: Rate and Rhythm are regular. ABDOMEN: Soft, nontender. EXTREMITITES: No edema. Objective - Vital Signs Vital signs: Vital Signs Temp 98.3 F 12/11/19 08:00 Pulse 133 H 12/11/19 09:00 Resp 12 12/11/19 09:00 BP 114/84 12/11/19 09:00 Pulse Ox 92 L 12/11/19 09:00 Intake & Output 12/10/19 12/11/19 12/11/19 18:59 06:59 18:59 Intake Total 96 160 Output Total 2250 345 40 Balance -2154 -345 120 Weight 89.3 kg Intake: IV 96 60 .9NS 10 Rasburicase 6 mg In 46 Sodium Chloride 0.9% 46 ml @ 100 mls/hr IV ONCE ONE Rx#:[id number] cefTRIAXone 1 gm In 50 50 Sodium Chloride 0.9% 50 ml @ 100 mls/hr IVPB Q24HR [facility] Rx#:[id number] Oral 100 Output: Urine 250 345 40 Hemodialysis 2000 Other: Voiding Method Indwelling Catheter Indwelling Catheter Indwelling Catheter - Labs CBC & Chem 7: 12/11/19 02:58 12/11/19 02:58 Labs: Abnormal Lab Results - Last 24 Hours (Table) 12/10/19 12/10/19 12/10/19 Range/Units 03:59 03:59 16:39 WBC (3.8-10.6) k/uL RBC (3.80-5.40) m/uL Hgb (11.4-16.0) gm/dL Hct (34.0-46.0) % MCV (80.0-100.0) fL MCHC (31.0-37.0) g/dL Plt Count (150-450) k/uL Lymphocytes # (Manual) (1.0-4.8) k/uL Macrocytosis BUN (7-17) mg/dL Creatinine (0.52-1.04) mg/dL Glucose (74-99) mg/dL POC Glucose (mg/dL) 205 H (75-99) mg/dL Calcium (8.4-10.2) mg/dL Albumin (PEP) 3.13 L (3.80-4.90) g/dL Beta Globulins 0.38 L (0.60-1.30) g/dL Gamma Globulins 0.58 L (0.70-1.50) g/dL IgG 637.0 L (700.0-1600.0) mg/dL IgA 51.2 L (60.0-350.0) mg/dL IgM <16.9 L (40.0-280.0) mg/dL 12/11/19 12/11/19 Range/Units 02:58 02:58 WBC 34.0 H (3.8-10.6) k/uL RBC 2.27 L (3.80-5.40) m/uL Hgb 7.8 L (11.4-16.0) gm/dL Hct 25.6 L (34.0-46.0) % MCV 112.7 H D (80.0-100.0) fL MCHC 30.5 L (31.0-37.0) g/dL Plt Count 34 L (150-450) k/uL Lymphocytes # (Manual) 29.92 H (1.0-4.8) k/uL Macrocytosis Marked A BUN 43 H (7-17) mg/dL Creatinine 2.54 H (0.52-1.04) mg/dL Glucose 113 H (74-99) mg/dL POC Glucose (mg/dL) (75-99) mg/dL Calcium 8.0 L (8.4-10.2) mg/dL Albumin (PEP) (3.80-4.90) g/dL Beta Globulins (0.60-1.30) g/dL Gamma Globulins (0.70-1.50) g/dL IgG (700.0-1600.0) mg/dL IgA (60.0-350.0) mg/dL IgM (40.0-280.0) mg/dL Microbiology - Last 24 Hours (Table) 12/09/19 01:36 Blood Culture - Preliminary Blood No Growth after 48 hours 12/09/19 03:48 Urine Culture - Preliminary Urine,Voided Gram Neg Bacilli Assessment and Plan Plan: assessment: 1. Acute kidney injury secondary to ATN. Etiology is multifactorial - hypotension, sepsis, possibly cardiorenal. Also concern for tumor lysis syndrome. Creatinine 5.7 on admission. No proteinuria on UA. Started on hemodialysis December 08 due to persistent hyperkalemia, volume overload and oliguria. Urine output 30-35 mL an hour. No hydronephrosis noted on kidney ultrasound. 2. Chronic kidney disease stage III secondary to nephrosclerosis with baseline creatinine in the range of 1-1.5. 3. Hyperkalemia secondary to acute kidney injury and potassium supplementation. Improved postdialysis. 4. History of CLL. Oncology following. 5. Volume overload. improving with ultrafiltration. 6. Acute on chronic diastolic CHF with severe pulmonary hypertension. 7. Hyperphosphatemia secondary to acute kidney injury. Improved postdialysis. 8. Questionable tumor lysis. Status post rasburicase December 08. 9. Acute on chronic diastolic CHF and moderate to severe tricuspid regurgitation and severe pulmonary hypertension. 10. Anemia of chronic kidney disease. Iron replete. maintained on Aranesp. plan: third treatment of hemodialysis today. Maintain Lasix 60 mg IV twice daily. Continue to monitor renal function and urine output. I will give her a dose of DDAVP due to oozing from the catheter site. Continue to assess daily for need for renal replacement therapy.
[2019-12-11] MEDS ORDERED: DESMOPRESSIN ACETATE 17 MCG in SODIUM CHLORIDE 0.9% 50 ML IVPB ONE (10:30)
[2019-12-11] MEDS: MIDODRINE 5 MG TAB PO PRN (11:03)
--- NOTE | 2019-12-11 13:33 | P.PN ---
Subjective Progress Note Date: 12/11/19 79-year-old female patient well-known to me. Patient has known history of advanced COPD, chronic hypoxic respiratory failure maintained on oxygen between 4 and 5 L per minute nasal cannula, severe obstructive sleep apnea with declined CPAP therapy over the years, history of coronary artery disease, history of CLL and severe pulmonary hypertension with right-sided heart failure. I have known this patient for many years and I'm taking care of her. She has been having progressive decline in her overall condition and health status. She has also component of chronic kidney disease. She came into the emergency department after having some worsening shortness of breath. She tried to fight it off at home. Nevertheless, ultimately condition got worse and she came into the hospital where she was utilized to have a acute on top of chronic kidney failure with a creatinine up to 5.7 and a potassium level of 8.6. The patient received the combination of treatment for hyperkalemia including IV calcium, IV bicarbonate and IV Lasix in addition to nebulized albuterol nebulized treatments and IV insulin with D50 sugar. Potassium level gradually came down to 7.2 from a baseline of 8.6. Nevertheless it was not enough and the patient also has a component of fluid overload and the urine output was in the order of 20 mL an hour. At that point I decided to proceed with dialysis in regards to hyper lipidemia. The patient uses only 200 mL of urine output following an 80 mg IV Lasix push and dialysis catheter was inserted by vascular surgery and the patient will be proceeding with dialysis. Noted the proBNP level is elevated and the chest x-ray is consistent with CHF and fluid overload. The patient is currently on a BiPAP at a pressure of 12/6 cm of water with an FiO2 of 50%. She is arousable pH is communicating. No significant cardiac arrhythmias related to hyperkalemia. Her basal lactic acid level was at 3.7 and came up to 1.7. On today's evaluation of 12/10/2019, the patient is awake and alert and she is communicating pH was taken off the BiPAP this morning and the patient was placed on 15 L high flow oxygen. The patient is doing well. She is communicating pH is alert and oriented 3. As mentioned earlier, the patient was started on hemodialysis and she was infiltrated with removal of 1 L of fluid. Chest x-ray still showing some increased volume yet improved compared to earlier chest x- rays. No fever. No chills. No chest pain. There is adequate urine output in the order of 30-40 mL an hour and the patient is also receiving IV Lasix at a dose of 60 mg every 12 hours. The patient's creatinine is at 3.9 with a BUN of 80. Potassium level has also improved is down to 5.3. Note that overnight, the patient slept on BiPAP at a pressure of 12/6 cm of water. She is moving all 4 extremities. Lactic acid level has also improved. The urine is showing gram-negative bacillus and the patient is currently covered with IV Rocephin. On 12/11/2019, patient is being seen for a follow-up. Doing well. FiO2 has been weaned down to 12 L and his saturations around 91%. The patient did not wear her BiPAP overnight. She remains in atrial fibrillation. Rate is slightly tachycardic. The patient's urine output is still low and the patient is going to undergo a hemodialysis with ultrafiltration today. The patient's last echo was at 34 consistent with her CLL. Creatinine is at 2.5 with a BUN of 43. The fluid balance over the past 24 hours is -2.4 L. The chest x-ray shows improvement in the aeration although there is some limited bilateral lower lobe pleural effusion and infiltrates still present. Urine culture is still pending although it's consistent with UTI with gram-negative bacillus. The patient is going to have a third session of hemodialysis today. The patient is also on Lasix 60 mg IV push every 12 hours. Renal function will be monitored very closely. Urine output in the order of 30-35 mL an hour. No hydronephrosis on her ultrasound of the kidneys. No cough. No sputum production. No chest tightness. No wheezing. Objective - Vital Signs Vital signs: Vital Signs Temp 98.4 F 12/11/19 12:00 Pulse 95 12/11/19 13:00 Resp 14 12/11/19 13:00 BP 89/50 12/11/19 13:00 Pulse Ox 92 L 12/11/19 13:00 Intake & Output 12/10/19 12/11/19 12/11/19 18:59 06:59 18:59 Intake Total 96 480 Output Total 2250 345 150 Balance -2154 -345 330 Weight 89.3 kg Intake: IV 96 80 .9NS 30 Rasburicase 6 mg In 46 Sodium Chloride 0.9% 46 ml @ 100 mls/hr IV ONCE ONE Rx#:[id number] cefTRIAXone 1 gm In 50 50 Sodium Chloride 0.9% 50 ml @ 100 mls/hr IVPB Q24HR [facility] Rx#:[id number] Intake, IV Titration 50 Amount Desmopressin Acetate 17 50 mcg In Sodium Chloride 0. 9% 50 ml @ 200 mls/hr IVPB ONCE ONE Rx#: [id number] Oral 350 Output: Urine 250 345 150 Hemodialysis 1999 Other: Voiding Method Indwelling Catheter Indwelling Catheter Indwelling Catheter - Exam General Appearance no diaphoresis, no respiratory distress, speech not interrupted by breaths, no dyspnea, no pallor, not cachectic, well nourished, appears well, morbid obesity. The patient is awake and alert. And oriented. The patient is currently on 12 L of oxygen by nasal cannula. Head exam was generally normal. There was no scleral icterus or corneal arcus. Mucous membranes were moist. Neck was supple and without jugular venous distension, thyromegaly, or carotid bruits. Carotids were easily palpable bilaterally. There was no adenopathy. Classification: Class 4 Chest no sternocleidomastoid muscle contractions, no supraclavicular retractions, no intercostal retractions, no decreased air movement, no rhonchi, barrel chest, prolonged expiratory wheezing, decreased air movement, hyper inflation Heart no right ventricular heave, no distant heart sounds, no s3 gallop, (normal) jugular vein: jugular venous distention: by 0cm GI bowel sounds: hyperactive (borborygmi), bowel sounds: diminished or absent Extremities no cyanosis, no clubbing, no edema Neurologic alert and oriented 3 and the patient has no significant somnolence, no somnolence, no confusion, moaning all 4 extremities without any limitation Examination of the skin revealed no evidence of significant rashes, suspicious appearing nevi or other concerning lesions. - Labs CBC & Chem 7: 12/11/19 02:58 12/11/19 02:58 Labs: Abnormal Lab Results - Last 24 Hours (Table) 12/10/19 12/10/19 12/11/19 Range/Units 03:59 16:39 02:58 WBC 34.0 H (3.8-10.6) k/uL RBC 2.27 L (3.80-5.40) m/uL Hgb 7.8 L (11.4-16.0) gm/dL Hct 25.6 L (34.0-46.0) % MCV 112.7 H D (80.0-100.0) fL MCHC 30.5 L (31.0-37.0) g/dL Plt Count 34 L (150-450) k/uL Lymphocytes # (Manual) 29.92 H (1.0-4.8) k/uL Macrocytosis Marked A BUN (7-17) mg/dL Creatinine (0.52-1.04) mg/dL Glucose (74-99) mg/dL POC Glucose (mg/dL) 205 H (75-99) mg/dL Calcium (8.4-10.2) mg/dL Albumin (PEP) 3.13 L (3.80-4.90) g/dL Beta Globulins 0.38 L (0.60-1.30) g/dL Gamma Globulins 0.58 L (0.70-1.50) g/dL 12/11/19 Range/Units 02:58 WBC (3.8-10.6) k/uL RBC (3.80-5.40) m/uL Hgb (11.4-16.0) gm/dL Hct (34.0-46.0) % MCV (80.0-100.0) fL MCHC (31.0-37.0) g/dL Plt Count (150-450) k/uL Lymphocytes # (Manual) (1.0-4.8) k/uL Macrocytosis BUN 43 H (7-17) mg/dL Creatinine 2.54 H (0.52-1.04) mg/dL Glucose 113 H (74-99) mg/dL POC Glucose (mg/dL) (75-99) mg/dL Calcium 8.0 L (8.4-10.2) mg/dL Albumin (PEP) (3.80-4.90) g/dL Beta Globulins (0.60-1.30) g/dL Gamma Globulins (0.70-1.50) g/dL Microbiology - Last 24 Hours (Table) 12/09/19 03:48 Urine Culture - Final Urine,Voided Enterobacter cloacae 12/09/19 01:36 Blood Culture - Preliminary Blood No Growth after 48 hours Assessment and Plan Plan: 1 acute hypoxic respiratory failure currently on 12 L of oxygen by nasal cannula. The patient improved with hemodialysis and ultrafiltration the patient is going to have a third session of hemodialysis today. She is currently off the BiPAP. 2 acute on chronic kidney failure. The patient presented with severe hyperkalemia and fluid overload. The patient did not respond to conventional treatment of hyperkalemia. Potassium level is improved. Producing urine output in the order of 20-30 mL an hour and the patient is currently on Lasix 60 mg every 12 hours. The ultrasound the kidneys showed no evidence of any hydronephrosis and the patient is going to undergo a third session of hemodialysis today. 3 acute hyperkalemia secondary to above, improved 4 severe COPD with chronic hypoxic and hypercapnic respiratory failure patient wears for a half liters of oxygen on a regular basis, and she is maintained on a combination of Primacor, Perforomist, Yupelri, and albuterol rescue inhaler on an as-needed basis 5. Secondary pulmonary hypertension with a preserved LV function and ejection fraction of 55% 6. Chronic lymphoid leukemia, with chronic lymphocytosis and chronic anemia with thrombocytopenia 7 History of hypogammaglobulinemia and she is on supplements 8. essential hypertension 9 coronary arteriosclerosis 10. 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 11 hyperuricemia 12 troponin leak 13 UTI currently on IV Rocephin, and the cultures showing gram-negative antonia illus. Plan Wean the FiO2 further to maintain a saturation above 90% The patient is currently down to 12 L of oxygen by nasal cannula Agree with hemodialysis, a third session of hemodialysis to be done today Continue 60 mg IV push every 12 hours Continue IV Rocephin regarding the possibility of a gram-negative urine checked infection Monitor potassium level Avoid nephrotoxic agents Clinically the patient is much more alert and awake and she's improved We'll continue to follow.
--- NOTE | 2019-12-11 17:16 | P.PN ---
Subjective 79-year-old the pleasant female came in with the worsening shortness of breath. Patient is found to have worsening renal function it has been progressively worsening patient is found to have elevated potassium of 8.6. Patient was treated with multiple doses of IV calcium gluconate, Lasix, insulin with D50 in spite of which potassium didn't respond very well because of which patient had emergent dialysis. Patient does make urine. Patient was volume overloaded because of her decreased urine output. Patient the appears to have chronic kidney disease stage IV above. Patient had elevation in serum creatinine for her his baseline. There is no evidence of infection at this time patient denied any dysuria patient denied any cough fever chills. As per the nephrology patient may have some acute blood necrosis. Patient is definitely bit volume overloaded BNP is elevated at this volume overload is probably secondary to renal failure. Although patient may have some chronic diastolic dysfunction. Cardiology evaluate the patient as well. Echocardiogram is being obtained. 12/10/2019 Patient had significant improvement in respiratory status patient is presently on the around 30 L of oxygen. Saturating well. Patient looks better serum potassium improved. Patient did undergo hemodialysis today as well. Patient urine cultures are positive for gram-negative bacilli patient is on Rocephin for urinary tract infection. 12/11/2019 Patient remains on for 4 L of oxygen patient did undergo hemodialysis today removed about 2 L today patient had about 1 L of for fluid removed via hemodialysis yesterday. still has urine output but the low, patient's symptoms are showing Enterobacter cloaca. Patient's and hematocrit will be switched to ciprofloxacin Constitutional: Denied any fatigue denied any fever. Cardio vascular: denied any chest pain, palpitations Gastrointestinal denied any nausea vomiting Pulmonary: Denied any shortness of breath cough Neurologic denied any new focal deficits All inpatient medications were reviewed and appropriate changes in these medications as dictated in the interval history and assessment and plan. Objective - Vital Signs Vital signs: Vital Signs Temp 97.5 F L 12/11/19 15:20 Pulse 95 12/11/19 16:00 Resp 18 12/11/19 16:00 BP 113/66 12/11/19 16:00 Pulse Ox 91 L 12/11/19 16:00 Intake & Output 12/10/19 12/11/19 12/11/19 18:59 06:59 18:59 Intake Total 96 495 Output Total 2652.825.9327 Balance -8731 -328 -5905 Weight 89.3 kg Intake: IV 96 95 .9NS 45 Rasburicase 6 mg In 46 Sodium Chloride 0.9% 46 ml @ 100 mls/hr IV ONCE ONE Rx#:[id number] cefTRIAXone 1 gm In 50 50 Sodium Chloride 0.9% 50 ml @ 100 mls/hr IVPB Q24HR [facility] Rx#:[id number] Intake, IV Titration 50 Amount Desmopressin Acetate 17 50 mcg In Sodium Chloride 0. 9% 50 ml @ 200 mls/hr IVPB ONCE ONE Rx#: [id number] Oral 350 Output: Urine 250 345 165 Hemodialysis 1999 1999 Other: Voiding Method Indwelling Catheter Indwelling Catheter Indwelling Catheter - Exam PHYSICAL EXAMINATION: GENERAL: The patient is alert and oriented x3, not in any acute distress. Well developed, well nourished. HEENT: Pupils are round and equally reacting to light. EOMI. No scleral icterus. No conjunctival pallor. Normocephalic, atraumatic. No pharyngeal erythema. No thyromegaly. CARDIOVASCULAR: S1 and S2 present. No murmurs, rubs, or gallops. PULMONARY: Chest is clear to auscultation, no wheezing or crackles. ABDOMEN: Soft, nontender, nondistended, normoactive bowel sounds. No palpable organomegaly. MUSCULOSKELETAL: No joint swelling or deformity. EXTREMITIES: No cyanosis, clubbing, or pedal edema. NEUROLOGICAL: Gross neurological examination did not reveal any focal deficits. SKIN: No rashes. - Labs CBC & Chem 7: 12/11/19 02:58 12/11/19 02:58 Labs: Abnormal Lab Results - Last 24 Hours (Table) 12/11/19 12/11/19 Range/Units 02:58 02:58 WBC 34.0 H (3.8-10.6) k/uL RBC 2.27 L (3.80-5.40) m/uL Hgb 7.8 L (11.4-16.0) gm/dL Hct 25.6 L (34.0-46.0) % MCV 112.7 H D (80.0-100.0) fL MCHC 30.5 L (31.0-37.0) g/dL Plt Count 34 L (150-450) k/uL Lymphocytes # (Manual) 29.92 H (1.0-4.8) k/uL Macrocytosis Marked A BUN 43 H (7-17) mg/dL Creatinine 2.54 H (0.52-1.04) mg/dL Glucose 113 H (74-99) mg/dL Calcium 8.0 L (8.4-10.2) mg/dL Microbiology - Last 24 Hours (Table) 12/09/19 03:48 Urine Culture - Final Urine,Voided Enterobacter cloacae 12/09/19 01:36 Blood Culture - Preliminary Blood No Growth after 48 hours Assessment and Plan Plan: -Acute hypoxic respiratory failure requiring BiPAP on admission presently on aspirin and Lanoxin: Secondary to fluid overload from kidney failure and fluid retention. -Possible acute exacerbation of her chronic diastolic dysfunction -Acute on chronic renal failure stage V -Hyperkalemia: Secondary to acute renal failure, chronic kidney disease stage V. Was started on hemodialysis improved serum potassium. -Hypertension patient is hypotensive does continue antidepressant medications -Chronic lymphoid leukemia with highly elevated white blood cell count -Coronary artery disease -Hyperuricemia mild concern for the tumor lysis is low -Elevated troponin secondary to chronic kidney disease -Possible urinary tract infection with Enterobacter cloacae K because of which patient will be switched to fluoroquinolones as of this organism has prosthetic or inducible beta lactamase and third generation cephalosporins are not good for Enterobacteriaceae -COPD and chronic hypercapnic respiratory failure. Presently doesn't appear to be in acute exacerbation at this time -DVT prophylaxis with subcutaneous heparin
[2019-12-11 20:13] LABS: Glucose,Whole Blood 249 mg/dL (75-99)
[2019-12-11] MEDS: CIPROFLOXACIN HCL 500 MG TAB PO SCH (20:18)
[2019-12-11] MEDS: ATORVASTATIN 40 MG TAB PO SCH (20:18)
[2019-12-11] MEDS: INSULIN ASPART (NovoLOG) 100 UNIT/ML VIAL SQ SCH (20:19)
--- NOTE | 2019-12-11 22:19 | P.PN ---
Subjective Progress Note Date: 12/11/19 Principal diagnosis: renal failure Blood counts are improving, creatinine improved today, clinically more awake. Seen and evaluated by Dr. Rich today Objective - Vital Signs Vital signs: Vital Signs Temp 98.2 F 12/11/19 20:00 Pulse 102 H 12/11/19 22:00 Resp 14 12/11/19 22:00 BP 96/73 12/11/19 22:00 Pulse Ox 93 L 12/11/19 22:00 Intake & Output 12/11/19 12/11/19 12/12/19 06:59 18:59 06:59 Intake Total 755 20 Output Total 345 2180 25 Balance -345 -1425 -5 Weight 89.3 kg Intake: IV 105 20 .9NS 55 20 cefTRIAXone 1 gm In 50 Sodium Chloride 0.9% 50 ml @ 100 mls/hr IVPB Q24HR [facility] Rx#:[id number] Intake, IV Titration 50 Amount Desmopressin Acetate 17 50 mcg In Sodium Chloride 0. 9% 50 ml @ 200 mls/hr IVPB ONCE ONE Rx#: [id number] Oral 600 Output: Urine 345 180 25 Hemodialysis 1999 Other: Voiding Method Indwelling Catheter Indwelling Catheter Indwelling Catheter - Exam - Constitutional General appearance: cooperative, no acute distress - EENT Eyes: EOMI ENT: hard of hearing, NA/AT - Neck Neck: normal ROM - Respiratory Respiratory: left: wheezing, bilateral: diminished - Cardiovascular Rhythm: regularly irregular leg Peripheral Edema: bilateral: 1+ - Gastrointestinal General gastrointestinal: normal bowel sounds, soft - Integumentary Integumentary: pale - Neurologic non focal - Musculoskeletal Musculoskeletal: generalized weakness - Psychiatric Flat affect - Labs CBC & Chem 7: 12/11/19 02:58 12/11/19 02:58 Labs: Abnormal Lab Results - Last 24 Hours (Table) 12/11/19 12/11/19 12/11/19 Range/Units 02:58 02:58 20:12 WBC 34.0 H (3.8-10.6) k/uL RBC 2.27 L (3.80-5.40) m/uL Hgb 7.8 L (11.4-16.0) gm/dL Hct 25.6 L (34.0-46.0) % MCV 112.7 H D (80.0-100.0) fL MCHC 30.5 L (31.0-37.0) g/dL Plt Count 34 L (150-450) k/uL Lymphocytes # (Manual) 29.92 H (1.0-4.8) k/uL Macrocytosis Marked A BUN 43 H (7-17) mg/dL Creatinine 2.54 H (0.52-1.04) mg/dL Glucose 113 H (74-99) mg/dL POC Glucose (mg/dL) 249 H (75-99) mg/dL Calcium 8.0 L (8.4-10.2) mg/dL Microbiology - Last 24 Hours (Table) 12/09/19 03:48 Urine Culture - Final Urine,Voided Enterobacter cloacae 12/09/19 01:36 Blood Culture - Preliminary Blood No Growth after 48 hours Assessment and Plan (1) Acute renal failure superimposed on chronic kidney disease, on chronic dialysis Current Visit: Yes Status: Acute Code(s): N17.9 - ACUTE KIDNEY FAILURE, UNSPECIFIED; N18.9 - CHRONIC KIDNEY DISEASE, UNSPECIFIED; Z99.2 - DEPENDENCE ON RENAL DIALYSIS SNOMED Code(s): 051603194 (2) CARLOS (acute kidney injury) Current Visit: Yes Status: Acute Code(s): N17.9 - ACUTE KIDNEY FAILURE, UNSP ECIFIED SNOMED Code(s): 92967587 (3) CLL (chronic lymphocytic leukemia) Current Visit: Yes Status: Acute Code(s): C91.10 - CHRONIC LYMPHOCYTIC LEUK OF B-CELL TYPE NOT ACHIEVE REMIS SNOMED Code(s): 02189645 (4) COPD (chronic obstructive pulmonary disease) Current Visit: Yes Status: Acute Code(s): J44.9 - CHRONIC OBSTRUCTIVE PULMONARY DISEASE, UNSPECIFIED SNOMED Code(s): 31330130 (5) Congestive heart failure Current Visit: Yes Status: Acute Code(s): I50.9 - HEART FAILURE, UNSPECIFIED SNOMED Code(s): 98389853 (6) Leukocytosis Current Visit: No Status: Acute Code(s): D72.829 - ELEVATED WHITE BLOOD CELL COUNT, UNSPECIFIED SNOMED Code(s): 013733244 (7) Macrocytic anemia Current Visit: Yes Status: Acute Code(s): D53.9 - NUTRITIONAL ANEMIA, UNSPECIFIED SNOMED Code(s): 76462014 Plan: Assessment and Plan: Acute on Chronic Hypoxic Respiratory Failure: - Pulmonology Following and monitored in ICU Acute Renal Failure on Chronic Kidney Disease: Stage unknown - Nephrology FOllowing - Hemodialysis per nephro Chronic Lymphocytic Leukemia: Stable disease and improved this admission - Maintained on observation with recent CT suspicious of worsening disease, although her WBC has been relatively unchanged and at her baseline 40-50K. Discussed further with primary oncologist and at this time no treatment recommended. Worsening Macrocytic Anemia: - This is likely worsening related to her worsening renal function although other causes will need to be evaluated - Anemia work-up for nutritional deficiency for ability to replace any deficiencies ordered - Hemolysis work-up negative - hemoglobin 7.5 today - transfuse during dialysis if less than 7 - Erythropoetin Pending Thrombocytopenia: - platelets 49K - Hold Anticoagulation when less than 50K - Transfuse Platelets if less than 10K SIRS 04/09 - - Potential UTI, abx per primary team - IgG greater than 600 - no IVIG necessary Leukocytosis: Secondary to CLL, exacerbated by infection - TLS bloodwork ordered - Status Post elitek on 12/09 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 Physician Attest: I have completed the full history and physcial and agree with above dictation, dictated as a scribe. Case was also discussed in full with nephrology
[2019-12-12] MEDS: IPRATROPIUM-ALBUTEROL 3 ML NEB INHALATION SCH ×5 (03:45→20:44)
[2019-12-12 04:11] LABS: HCT 25.6 % (34.0-46.0); HGB 7.8 gm/dL (11.4-16.0); Hypochromasia Marked; MCH 34.1 pg (25.0-35.0); MCHC 30.5 g/dL (31.0-37.0); Macrocytosis Marked; Mean Platelet Volume 9.9; RBC 2.29 m/uL (3.80-5.40); WBC 23.7 k/uL (3.8-10.6)
[2019-12-12 04:12] LABS: Platelet Count 32 k/uL (150-450)
[2019-12-12 04:23] LABS: Calcium 7.9 mg/dL (8.4-10.2); Potassium 3.8 mmol/L (3.5-5.1)
[2019-12-12] MEDS ORDERED: POTASSIUM CHLORIDE ER 20 MEQ TAB.ER PO STA (06:42)
[2019-12-12] MEDS: INSULIN ASPART (NovoLOG) 100 UNIT/ML VIAL SQ SCH ×4 (06:50→21:44)
[2019-12-12 06:51] LABS: Glucose,Whole Blood 136 mg/dL (75-99)
[2019-12-12] MEDS: LEVOTHYROXINE 100 MCG TAB PO SCH (06:51)
[2019-12-12] MEDS: BUDESONIDE 0.5 MG/2 ML NEBU INHALATION SCH ×2 (07:44→20:43)
--- NOTE | 2019-12-12 07:51 | XR ---
EXAMINATION TYPE: XR chest 1V DATE OF EXAM: 12/12/2019 COMPARISON: 12/11/2019 INDICATION: CHF TECHNIQUE: Single frontal view of the chest is obtained. FINDINGS: The heart size is normal. The pulmonary vasculature is prominent. Left lower lobe infiltrate is present. Small left pleural effusion is present. The right pleural effu shanti is resolving. IMPRESSION: 1. Congestive heart failure. 2. Left lower lobe infiltrate and small pleural effusion.
[2019-12-12] MEDS: METOPROLOL TARTRATE 25 MG TAB PO SCH ×2 (08:48→21:42)
[2019-12-12] MEDS: ESCITALOPRAM 10 MG TAB PO SCH (08:48)
[2019-12-12] MEDS: CIPROFLOXACIN HCL 500 MG TAB PO SCH (08:48)
[2019-12-12] MEDS: EZETIMIBE 10 MG TAB PO SCH (08:48)
[2019-12-12] MEDS: ASPIRIN 81 MG PO SCH (08:48)
[2019-12-12] MEDS: FUROSEMIDE 10 MG/ML 10 ML VIAL IV SCH ×2 (08:49→21:41)
[2019-12-12] MEDS: PANTOPRAZOLE 40 MG/10 ML VIAL IV SCH (08:49)
--- NOTE | 2019-12-12 10:37 | P.PN ---
Subjective Patient is seen in follow-up for acute kidney injury on chronic kidney disease and hyperkalemia. Started on hemodialysis December 08 due to oliguria and persistent hyperkalemia. Tolerated 2 L ultrafiltration yesterday. blood pressure stable. Not on any vasopressors. currently awake and alert. No active chest pain or shortness of breath. Vital signs are stable. General: The patient appeared well nourished and normally developed. HEENT: Head exam is unremarkable. Neck is without jugular venous distension. LUNGS: Breath sounds decreased. HEART: Rate and Rhythm are regular. ABDOMEN: Soft, nontender. EXTREMITITES: No edema. Objective - Vital Signs Vital signs: Vital Signs Temp 98.5 F 12/12/19 08:00 Pulse 95 12/12/19 09:00 Resp 17 12/12/19 09:00 BP 95/73 12/12/19 09:00 Pulse Ox 94 L 12/12/19 09:00 Intake & Output 12/11/19 12/12/19 12/12/19 18:59 06:59 18:59 Intake Total 755 30 250 Output Total 2180 160 30 Balance -1425 -130 220 Weight 85.1 kg Intake: IV 105 30 .9NS 55 30 cefTRIAXone 1 gm In 50 Sodium Chloride 0.9% 50 ml @ 100 mls/hr IVPB Q24HR [facility] Rx#:[id number] Intake, IV Titration 50 Amount Desmopressin Acetate 17 50 mcg In Sodium Chloride 0. 9% 50 ml @ 200 mls/hr IVPB ONCE ONE Rx#: [id number] Oral 600 250 Output: Urine 180 160 30 Hemodialysis 2000 Other: Voiding Method Indwelling Catheter Indwelling Catheter Indwelling Catheter - Labs CBC & Chem 7: 12/12/19 03:48 12/12/19 03:48 Labs: Abnormal Lab Results - Last 24 Hours (Table) 12/10/19 12/11/19 12/12/19 Range/Units 03:59 20:12 03:48 WBC 23.7 H (3.8-10.6) k/uL RBC 2.29 L (3.80-5.40) m/uL Hgb 7.8 L (11.4-16.0) gm/dL Hct 25.6 L (34.0-46.0) % MCV 112.0 H (80.0-100.0) fL MCHC 30.5 L (31.0-37.0) g/dL Plt Count 32 L (150-450) k/uL Macrocytosis Marked A Carbon Dioxide (22-30) mmol/L BUN (7-17) mg/dL Creatinine (0.52-1.04) mg/dL Glucose (74-99) mg/dL POC Glucose (mg/dL) 249 H (75-99) mg/dL Calcium (8.4-10.2) mg/dL Methylmalonic Acid 0.50 H (<0.40) umol/L 12/12/19 12/12/19 Range/Units 03:48 06:49 WBC (3.8-10.6) k/uL RBC (3.80-5.40) m/uL Hgb (11.4-16.0) gm/dL Hct (34.0-46.0) % MCV (80.0-100.0) fL MCHC (31.0-37.0) g/dL Plt Count (150-450) k/uL Macrocytosis Carbon Dioxide 34 H (22-30) mmol/L BUN 28 H (7-17) mg/dL Creatinine 2.46 H (0.52-1.04) mg/dL Glucose 112 H (74-99) mg/dL POC Glucose (mg/dL) 136 H (75-99) mg/dL Calcium 7.9 L (8.4-10.2) mg/dL Methylmalonic Acid (<0.40) umol/L Microbiology - Last 24 Hours (Table) 12/09/19 01:36 Blood Culture - Preliminary Blood No Growth after 72 hours 12/09/19 03:48 Urine Culture - Final Urine,Voided Enterobacter cloacae Assessment and Plan Plan: assessment: 1. Acute kidney injury secondary to ATN. Etiology is multifactorial - hypotension, sepsis, possibly cardiorenal. Also concern for tumor lysis synd dinorah. Creatinine 5.7 on admission. No proteinuria on UA. Started on hemodialysis December 08 due to persistent hyperkalemia, volume overload and oliguria. Urine output 10-15 mL an hour. No hydronephrosis noted on kidney ultrasound. 2. Chronic kidney disease stage III secondary to nephrosclerosis with baseline creatinine in the range of 1-1.5. 3. Hyperkalemia secondary to acute kidney injury and potassium supplementation. Improved postdialysis. 4. History of CLL. Oncology following. 5. Volume overload. improving with ultrafiltration. 6. Acute on chronic diastolic CHF with severe pulmonary hypertension. 7. Hyperphosphatemia secondary to acute kidney injury. Improved postdialysis. 8. Questionable tumor lysis. Status post rasburicase December 08. 9. Acute on chronic diastolic CHF and moderate to severe tricuspid regurgitation and severe pulmonary hypertension. 10. Anemia of chronic kidney disease. Iron replete. maintained on Aranesp. plan: hold hemodialysis today. Maintain Lasix 60 mg IV twice daily. Continue to monitor renal function and urine output. Continue to assess daily for need for renal replacement therapy. add midodrine 5 mg 3 times daily. To be held if systolic blood pressure greater than 110.
--- NOTE | 2019-12-12 11:17 | P.PN ---
Subjective HISTORY OF PRESENTING ILLNESS This is a pleasant 79-year-old female past medical history significant for coronary artery disease status post PCI in 2004 according to the patient, CLL, hypertension, dyslipidemia, COPD and obstructive sleep apnea. She follows in the office with Dr. Torre at [facility]. She is seen and examined s itting up in bed in no acute distress. She feels like she is ready to go home. She denies chest pain, shortness of breath, dizziness or palpitations. She underwent dialysis yesterday with 2L removed. She continues to be in a-fib with variable ventricular rates and borderline blood pressures. Currently 95/73 with a heart rate of 95. Laboratory data reviewed, WBC 23.7, hemoglobin 7.8, platelets 32, sodium 140, potassium 3.8 and creatinine 2.46. Currently maintained on Lopressor 25 mg twice a day, aspirin 81 mg daily, atorvastatin 40 mg daily, Lasix 60 mg IV twice a day, Zetia 10 mg daily and midodrine 5 mg 3 times a day. PHYSICAL EXAMINATION CONSTITUTIONAL: No apparent distress. Obese. HEENT: Head is normocephalic. Pupils are equal, round. Sclerae anicteric. Mucous membranes of the mouth are moist. No JVD. No carotid bruit. CHEST EXAMINATION: Bibasilar rales. No wheezes or rhonchi. No chest wall tenderness is noted on palpation or with deep breathing. HEART EXAMINATION: Irregular rate and rhythm. S1, S2 heard. No murmurs, gallops or rub. Diminished bilaterally. EXTREMITIES: 2+ peripheral pulses, no lower extremity edema and no calf tenderness. ASSESSMENT Fluid overload secondary to acute kidney injury, currently on dialysis Acute on chronic diastolic heart failure Pulmonary hypertension New onset paroxysmal atrial fibrillation with rapid ventricular rates Chronic lymphocytic leukemia Leukocytosis, secondary to CLL. Baseline 40-50K Hyperkalemia Thrombocytopenia Acute kidney injury Hypertension Dyslipidemia COPD Pulmonary hypertension Coronary artery disease status post PCI,OM in 2004 and distal circumflex 2007 PLAN Continue current medical regimen, hold lopressor for heart rates less than 55 or systolic bp less than 95. Nurse Practitioner note has been reviewed, I agree with a documented findings and plan of care. Patient was seen and examined. Objective - Vital Signs Vital signs: Vital Signs Temp 98.5 F 12/12/19 08:00 Pulse 95 12/12/19 09:00 Resp 17 12/12/19 09:00 BP 95/73 12/12/19 09:00 Pulse Ox 94 L 12/12/19 09:00 Intake & Output 12/11/19 12/12/19 12/12/19 18:59 06:59 18:59 Intake Total 755 30 250 Output Total 2180 160 30 Balance -1425 -130 220 Weight 85.1 kg Intake: IV 105 30 .9NS 55 30 cefTRIAXone 1 gm In 50 Sodium Chloride 0.9% 50 ml @ 100 mls/hr IVPB Q24HR [facility] Rx#:[id number] Intake, IV Titration 50 Amount Desmopressin Acetate 17 50 mcg In Sodium Chloride 0. 9% 50 ml @ 200 mls/hr IVPB ONCE ONE Rx#: [id number] Oral 600 250 Output: Urine 180 160 30 Hemodialysis 2000 Other: Voiding Method Indwelling Catheter Indwelling Catheter Indwelling Catheter - Labs CBC & Chem 7: 12/12/19 03:48 12/12/19 03:48 Labs: Abnormal Lab Results - Last 24 Hours (Table) 12/10/19 12/11/19 12/12/19 Range/Units 03:59 20:12 03:48 WBC 23.7 H (3.8-10.6) k/uL RBC 2.29 L (3.80-5.40) m/uL Hgb 7.8 L (11.4-16.0) gm/dL Hct 25.6 L (34.0-46.0) % MCV 112.0 H (80.0-100.0) fL MCHC 30.5 L (31.0-37.0) g/dL Plt Count 32 L (150-450) k/uL Macrocytosis Marked A Carbon Dioxide (22-30) mmol/L BUN (7-17) mg/dL Creatinine (0.52-1.04) mg/dL Glucose (74-99) mg/dL POC Glucose (mg/dL) 249 H (75-99) mg/dL Calcium (8.4-10.2) mg/dL Methylmalonic Acid 0.50 H (<0.40) umol/L 12/12/19 12/12/19 Range/Units 03:48 06:49 WBC (3.8-10.6) k/uL RBC (3.80-5.40) m/uL Hgb (11.4-16.0) gm/dL Hct (34.0-46.0) % MCV (80.0-100.0) fL MCHC (31.0-37.0) g/dL Plt Count (150-450) k/uL Macrocytosis Carbon Dioxide 34 H (22-30) mmol/L BUN 28 H (7-17) mg/dL Creatinine 2.46 H (0.52-1.04) mg/dL Glucose 112 H (74-99) mg/dL POC Glucose (mg/dL) 136 H (75-99) mg/dL Calcium 7.9 L (8.4-10.2) mg/dL Methylmalonic Acid (<0.40) umol/L Microbiology - Last 24 Hours (Table) 12/09/19 01:36 Blood Culture - Preliminary Blood No Growth after 72 hours 12/09/19 03:48 Urine Culture - Final Urine,Voided Enterobacter cloacae
[2019-12-12 11:40] LABS: Glucose,Whole Blood 235 mg/dL (75-99)
--- NOTE | 2019-12-12 11:48 | CDI ---
Documentation Clarification Form Date: 12/12/2019 10:58:35 AM From: Raquel Resendez RN CCDS Admit Date: 12/09/2019 03:23:00 AM Patient Name: Amara Martinez Visit Number: [id number] Discharge Date: ATTENTION: The Clinical Documentation Specialists (CDI) and [facility] Coding Staff appreciate your assistance in clarifying documentation. Please respond to the clarification below the line at the bottom and electronically sign. The CDI & [facility] Coding staff will review the response and follow-up if needed. Please note: Queries are made part of the Legal Health Record. If you have any questions, please contact the author of this message via ITS. Dr. Kedar Serna Sepsis is documented in the Nephrology consult 12/08 and in the following Nephrology Progress notes through 12/11 History/Risk Factors: 79-year-old female presents to the ED for evaluation of shortness of breath. Medical history of: CLL, Diastolic Heart Failure, COPD, HTN Sleep Apnea and chronic kidney disease stage III. Admission Diagnosis Acute Respiratory Failure, CARLOS on CKD, Possible UTI and Acute on chronic diastolic Heart failure. Clinical Indicators: 12/08 Wbc 51.8; Lactic Acid: 3.3 12/08 UA Culture: Enterobacter cloacae 12/08 Vital signs on admission: B/P:104/5; HR: 84; Temp: 98.1F Oral; RR: 22; SpO2 89% non-rebreather. Treatment: Antibiotics: 22/08 Ceftriaxone IVPB Q 24 Hrs d/c 12/10; 12/10 Cipro po bid changed 12/12 to daily IV Fluids: 12/08 0.9NS 1L bolus 0.9ns 150 cc/hr for 6 hours. In your professional opinion, please clarify if these findings signify one of the following conditions, whether the condition is POA, and cause, if known: Sepsis POA SIRS, without underlying infectious process Sepsis ruled out Other, please specify Unable to determine Identify the (suspected) organism Link or clarify if there is associated (due to/with): Organ failure Shock SIRS Criteria (2 or more of the following may indicate SIRS): -Temperature < 96.8F (36C) or > 101.0F (38.3C) -Heart Rate > 90 bpm -Respiratory Rate > 20 breaths/min or PaCO2 < 32 mmHg -White Blood Cell Count > 12,000 or < 4,000 cells/mm3 or > 10% bands -Lactate >2.0 mmol/L (>4.0 is equivalent to septic shock) (Last Revision: June 2017) No sepsis MTDD
[2019-12-12] MEDS: MIDODRINE 5 MG TAB PO SCH ×2 (12:05→17:10)
--- NOTE | 2019-12-12 14:47 | P.PN ---
Subjective Progress Note Date: 12/12/19 79-year-old female patient well-known to me. Patient has known history of advanced COPD, chronic hypoxic respiratory failure maintained on oxygen between 4 and 5 L per minute nasal cannula, severe obstructive sleep apnea with declined CPAP therapy over the years, history of coronary artery disease, history of CLL and severe pulmonary hypertension with right-sided heart failure. I have known this patient for many years and I'm taking care of her. She has been having progressive decline in her overall condition and health status. She has also component of chronic kidney disease. She came into the emergency department after having some worsening shortness of breath. She tried to fight it off at home. Nevertheless, ultimately condition got worse and she came into the hospital where she was utilized to have a acute on top of chronic kidney failure with a creatinine up to 5.7 and a potassium level of 8.6. The patient received the combination of treatment for hyperkalemia including IV calcium, IV bicarbonate and IV Lasix in addition to nebulized albuterol nebulized treatments and IV insulin with D50 sugar. Potassium level gradually came down to 7.2 from a baseline of 8.6. Nevertheless it was not enough and the patient also has a component of fluid overload and the urine output was in the order of 20 mL an hour. At that point I decided to proceed with dialysis in regards to hyper lipidemia. The patient uses only 200 mL of urine output following an 80 mg IV Lasix push and dialysis catheter was inserted by vascular surgery and the patient will be proceeding with dialysis. Noted the proBNP level is elevated and the chest x-ray is consistent with CHF and fluid overload. The patient is currently on a BiPAP at a pressure of 12/6 cm of water with an FiO2 of 50%. She is arousable pH is communicating. No significant cardiac arrhythmias related to hyperkalemia. Her basal lactic acid level was at 3.7 and came up to 1.7. On today's evaluation of 12/10/2019, the patient is awake and alert and she is communicating pH was taken off the BiPAP this morning and the patient was placed on 15 L high flow oxygen. The patient is doing well. She is communicating pH is alert and oriented 3. As mentioned earlier, the patient was started on hemodialysis and she was infiltrated with removal of 1 L of fluid. Chest x-ray still showing some increased volume yet improved compared to earlier chest x- rays. No fever. No chills. No chest pain. There is adequate urine output in the order of 30-40 mL an hour and the patient is also receiving IV Lasix at a dose of 60 mg every 12 hours. The patient's creatinine is at 3.9 with a BUN of 80. Potassium level has also improved is down to 5.3. Note that overnight, the patient slept on BiPAP at a pressure of 12/6 cm of water. She is moving all 4 extremities. Lactic acid level has also improved. The urine is showing gram-negative bacillus and the patient is currently covered with IV Rocephin. On 12/11/2019, patient is being seen for a follow-up. Doing well. FiO2 has been weaned down to 12 L and his saturations around 91%. The patient did not wear her BiPAP overnight. She remains in atrial fibrillation. Rate is slightly tachycardic. The patient's urine output is still low and the patient is going to undergo a hemodialysis with ultrafiltration today. The patient's last echo was at 34 consistent with her CLL. Creatinine is at 2.5 with a BUN of 43. The fluid balance over the past 24 hours is -2.4 L. The chest x-ray shows improvement in the aeration although there is some limited bilateral lower lobe pleural effusion and infiltrates still present. Urine culture is still pending although it's consistent with UTI with gram-negative bacillus. The patient is going to have a third session of hemodialysis today. The patient is also on Lasix 60 mg IV push every 12 hours. Renal function will be monitored very closely. Urine output in the order of 30-35 mL an hour. No hydronephrosis on her ultrasound of the kidneys. No cough. No sputum production. No chest tightness. No wheezing. 12/12/2019, the patient is doing well. Oxygenation is improved and the patient is currently down to 8 L of oxygen by nasal cannula. Urine output remains low and order of 10 mL an hour and the patient is on IV Lasix. Note that the patient underwent dialysis yesterday which he tolerated it very well and she had a total of 2 L of ultrafiltration. BP is stable for now. Chest x-ray is showing small bilateral pleural effusions in the lung bases in addition to pulmonary vascular congestion. She is on no pressors. She is afebrile. Urine culture clipper and turner to be positive for Enterobacter and the patient was taken off the Rocephin and she was placed on ciprofloxacin. The patient's white cell count is 23.7 which is lower. The hemogram is stable at 7.8. Platelet count has been low at 32. On today's evaluation she has a BUN of 28 with a creatinine of 2.4. The patient will not have hemodialysis today. The patient will be trialed on IV Lasix and the urine output was monitored very closely. No fever. No chills no altered mentation and no other significant events overnight. Objective - Vital Signs Vital signs: Vital Signs Temp 98.5 F 12/12/19 08:00 Pulse 96 12/12/19 14:00 Resp 14 12/12/19 14:00 BP 100/80 12/12/19 14:00 Pulse Ox 92 L 12/12/19 14:00 Intake & Output 12/11/19 12/12/19 12/12/19 18:59 06:59 18:59 Intake Total 755 30 500 Output Total 2180 160 90 Balance -1425 -130 410 Weight 85.1 kg 85.1 kg Intake: IV 105 30 .9NS 55 30 cefTRIAXone 1 gm In 50 Sodium Chloride 0.9% 50 ml @ 100 mls/hr IVPB Q24HR [facility] Rx#:[id number] Intake, IV Titration 50 Amount Desmopressin Acetate 17 50 mcg In Sodium Chloride 0. 9% 50 ml @ 200 mls/hr IVPB ONCE ONE Rx#: [id number] Oral 600 500 Output: Urine 180 160 90 Hemodialysis 2000 Other: Voiding Method Indwelling Catheter Indwelling Catheter Indwelling Catheter - Exam General Appearance no diaphoresis, no respiratory distress, speech not interrupted by breaths, no dyspnea, no pallor, not cachectic, well nourished, appears well, morbid obesity. The patient is awake and alert. And oriented. The patient is currently on 12 L of oxygen by nasal cannula. Head exam was generally normal. There was no scleral icterus or corneal arcus. Mucous membranes were moist. Neck was supple and without jugular venous distension, thyromegaly, or carotid bruits. Carotids were easily palpable bilaterally. There was no adenopathy. Classification: Class 4 Chest no sternocleidomastoid muscle contractions, no supraclavicular retractions, no intercostal retractions, no decreased air movement, no rhonchi, barrel chest, prolonged expiratory wheezing, decreased air movement, hyperinflation Heart no right ventricular heave, no distant heart sounds, no s3 gallop, (normal) jugular vein: jugular venous distention: by 0cm GI bowel sounds: hyperactive (borborygmi), bowel sounds: diminished or absent Extremities no cyanosis, no clubbing, no edema Neurologic alert and oriented 3 and the patient has no significant somnolence, no somnolence, no confusion, moaning all 4 extremities without any limitation Examination of the skin revealed no evidence of significant rashes, suspicious appearing nevi or other concerning lesions. - Labs CBC & Chem 7: 12/12/19 03:48 12/12/19 03:48 Labs: Abnormal Lab Results - Last 24 Hours (Table) 12/10/19 12/11/19 12/12/19 Range/Units 03:59 20:12 03:48 WBC 23.7 H (3.8-10.6) k/uL RBC 2.29 L (3.80-5.40) m/uL Hgb 7.8 L (11.4-16.0) gm/dL Hct 25.6 L (34.0-46.0) % MCV 112.0 H (80.0-100.0) fL MCHC 30.5 L (31.0-37.0) g/dL Plt Count 32 L (150-450) k/uL Macrocytosis Marked A Carbon Dioxide (22-30) mmol/L BUN (7-17) mg/dL Creatinine (0.52-1.04) mg/dL Glucose (74-99) mg/dL POC Glucose (mg/dL) 249 H (75-99) mg/dL Calcium (8.4-10.2) mg/dL Methylmalonic Acid 0.50 H (<0.40) umol/L 12/12/19 12/12/19 12/12/19 Range/Units 03:48 06:49 11:38 WBC (3.8-10.6) k/uL RBC (3.80-5.40) m/uL Hgb (11.4-16.0) gm/dL Hct (34.0-46.0) % MCV (80.0-100.0) fL MCHC (31.0-37.0) g/dL Plt Count (150-450) k/uL Macrocytosis Carbon Dioxide 34 H (22-30) mmol/L BUN 28 H (7-17) mg/dL Creatinine 2.46 H (0.52-1.04) mg/dL Glucose 112 H (74-99) mg/dL POC Glucose (mg/dL) 136 H 235 H (75-99) mg/dL Calcium 7.9 L (8.4-10.2) mg/dL Methylmalonic Acid (<0.40) umol/L Microbiology - Last 24 Hours (Table) 12/09/19 01:36 Blood Culture - Preliminary Blood No Growth after 72 hours 12/09/19 03:48 Urine Culture - Final Urine,Voided Enterobacter cloacae Assessment and Plan Plan: 1 acute hypoxic respiratory failure currently on 8L of oxygen by nasal cannula. The patient improved with hemodialysis and ultrafiltration and the last session of hemodialysis was yesterday and the patient was also infiltrated with a total of 2 L and will hold off on dialysis today. The patient on IV Lasix. 2 acute on chronic kidney failure. The patient presented with severe hyperkalemia and fluid overload. The patient did not respond to conventional treatment of hyperkalemia. Potassium level is improved. No dialysis today. 3 acute hyperkalemia secondary to above, improved 4 severe COPD with chronic hypoxic and hypercapnic respiratory failure patient wears for a half liters of oxygen on a regular basis, and she is maintained on a combination of Primacor, Perforomist, Yupelri, and albuterol rescue inhaler on an as-needed basis 5. Secondary pulmonary hypertension with a preserved LV function and ejection fraction of 55% 6. Chronic lymphoid leukemia, with chronic lymphocytosis and chronic anemia with thrombocytopenia 7 History of hypogammaglobulinemia and she is on supplements 8. essential hypertension 9 coronary arteriosclerosis 10. 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 11 hyperuricemia 12 troponin leak 13 UTI secondary to Enterobacter. Plan Wean the FiO2 , currently on 8 L of oxygen by nasal cannula Continue oral ciprofloxacin and discontinue the Rocephin Monitor hematologic profile. The white cell count is improved and the platelet remains low Monitor urine output and the patient on IV Lasix 60 mg IV push every 12 hours Nephrology is on the case in regards to any need for renal replacement therapy at a later stage We'll try to wean off FiO2 as tolerated to maintain a saturation above 90%. Her oxygenation in general is improving. The patient can be chest at the medical surgical floor with telemetry. We'll continue to follow. Her COPD stable. Overall pulmonary status is stable. Clinically much more alert and awake as the patient received hemodialysis and the patient was treated for UTI. We'll continue to follow.
--- NOTE | 2019-12-12 15:17 | P.PN ---
Subjective Progress Note Date: 12/12/19 Principal diagnosis: renal failure Breathing and oxygen continue to slowly improve. 8L hi flow this am. She is tolerating diaylysis, not much urine yet. Reviewed Chest x-ray - small bilateral pleural effusions and some pulmonary vascular congestion. Afebrile. Urine culture did result positive Enterobacter and cipro started. WBC 23.7 Hemoglobin = 7.8. Platelet are 32. These continue to trend down, possibly from inflammation/infection, although other causes should be considered. Hold NSAIDS, Heparin, ASA (if ok with cardiology). Renal function continues to improve on dialysis. Patient seen and examined by Dr. Rich this am. Objective - Vital Signs Vital signs: Vital Signs Temp 98.5 F 12/12/19 08:00 Pulse 96 12/12/19 14:00 Resp 14 12/12/19 14:00 BP 100/80 12/12/19 14:00 Pulse Ox 92 L 12/12/19 14:00 Intake & Output 12/11/19 12/12/19 12/12/19 18:59 06:59 18:59 Intake Total 755 30 500 Output Total 2180 160 90 Balance -1425 -130 410 Weight 85.1 kg 85.1 kg Intake: IV 105 30 .9NS 55 30 cefTRIAXone 1 gm In 50 Sodium Chloride 0.9% 50 ml @ 100 mls/hr IVPB Q24HR [facility] Rx#:[id number] Intake, IV Titration 50 Amount Desmopressin Acetate 17 50 mcg In Sodium Chloride 0. 9% 50 ml @ 200 mls/hr IVPB ONCE ONE Rx#: [id number] Oral 600 500 Output: Urine 180 160 90 Hemodialysis 1999 Other: Voiding Method Indwelling Catheter Indwelling Catheter Indwelling Catheter - Exam - Constitutional General appearance: cooperative, no acute distress - EENT Eyes: EOMI ENT: hard of hearing, NA/AT - Neck Neck: normal ROM - Respiratory Respiratory: left: wheezing, bilateral: diminished - Cardiovascular Rhythm: regularly irregular leg Peripheral Edema: bilateral: 1+ - Gastrointestinal General gastrointestinal: normal bowel sounds, soft - Integumentary Integumentary: pale - Neurologic non focal - Musculoskeletal Musculoskeletal: generalized weakness - Psychiatric Flat affect - Labs CBC & Chem 7: 12/12/19 03:48 12/12/19 03:48 Labs: Abnormal Lab Results - Last 24 Hours (Table) 12/10/19 12/11/19 12/12/19 Range/Units 03:59 20:12 03:48 WBC 23.7 H (3.8-10.6) k/uL RBC 2.29 L (3.80-5.40) m/uL Hgb 7.8 L (11.4-16.0) gm/dL Hct 25.6 L (34.0-46.0) % MCV 112.0 H (80.0-100.0) fL MCHC 30.5 L (31.0-37.0) g/dL Plt Count 32 L (150-450) k/uL Macrocytosis Marked A Carbon Dioxide (22-30) mmol/L BUN (7-17) mg/dL Creatinine (0.52-1.04) mg/dL Glucose (74-99) mg/dL POC Glucose (mg/dL) 249 H (75-99) mg/dL Calcium (8.4-10.2) mg/dL Methylmalonic Acid 0.50 H (<0.40) umol/L 12/12/19 12/12/19 12/12/19 Range/Units 03:48 06:49 11:38 WBC (3.8-10.6) k/uL RBC (3.80-5.40) m/uL Hgb (11.4-16.0) gm/dL Hct (34.0-46.0) % MCV (80.0-100.0) fL MCHC (31.0-37.0) g/dL Plt Count (150-450) k/uL Macrocytosis Carbon Dioxide 34 H (22-30) mmol/L BUN 28 H (7-17) mg/dL Creatinine 2.46 H (0.52-1.04) mg/dL Glucose 112 H (74-99) mg/dL POC Glucose (mg/dL) 136 H 235 H (75-99) mg/dL Calcium 7.9 L (8.4-10.2) mg/dL Methylmalonic Acid (<0.40) umol/L Microbiology - Last 24 Hours (Table) 12/09/19 01:36 Blood Culture - Preliminary Blood No Growth after 72 hours 12/09/19 03:48 Urine Culture - Final Urine,Voided Enterobacter cloacae Assessment and Plan (1) Acute renal failure superimposed on chronic kidney disease, on chronic dialysis Current Visit: Yes Status: Acute Code(s): N17.9 - ACUTE KIDNEY FAILURE, UNSPECIFIED; N18.9 - CHRONIC KIDNEY DISEASE, UNSPECIFIED; Z99.2 - DEPENDENCE ON RENAL DIALYSIS SNOMED Code(s): 121054038 (2) CARLOS (acute kidney injury) Current Visit: Yes Status: Acute Code(s): N17.9 - ACUTE KIDNEY FAILURE, UNSPECIFIED SNOMED Code(s): 92349096 (3) CLL (chronic lymphocytic leukemia) Current Visit: Yes Status: Acute Code(s): C91.10 - CHRONIC LYMPHOCYTIC LEUK OF B-CELL TYPE NOT ACHIEVE REMIS SNOMED Code(s): 67286699 (4) COPD (chronic obstructive pulmonary disease) Current Visit: Yes Status: Acute Code(s): J44.9 - CHRONIC OBSTRUCTIVE PULMONARY DISEASE, UNSPECIFIED SNOMED Code(s): 05730236 (5) Congestive heart failure Current Visit: Yes Status: Acute Code(s): I50.9 - HEART FAILURE, UNSPECIFIED SNOMED Code(s): 28904941 (6) Leukocytosis Current Visit: No Status: Acute Code(s): D72.829 - ELEVATED WHITE BLOOD CELL COUNT, UNSPECIFIED SNOMED Code(s): 586719689 (7) Macrocytic anemia Current Visit: Yes Status: Acute Code(s): D53.9 - NUTRITIONAL ANEMIA, UNSPECIFIED SNOMED Code(s): 28623818 Plan: Assessment and Plan: Acute on Chronic Hypoxic Respiratory Failure: - Pulmonology Following and monitored in ICU Acute Renal Failure on Chronic Kidney Disease: Stage unknown - Nephrology FOllowing - Hemodialysis per nephro Chronic Lymphocytic Leukemia: Stable disease and improved this admission - Maintained on observation with recent CT suspicious of worsening disease, although her WBC has been relatively unchanged and at her baseline 40-50K. Discussed further with primary oncologist and at this time no treatment recommended. Worsening Macrocytic Anemia: - This is likely worsening related to her worsening renal function although other causes will need to be evaluated - Anemia work-up for nutritional deficiency for ability to replace any deficie ncies ordered - Hemolysis work-up negative - hemoglobin 7.5 today - transfuse during dialysis if less than 7 - Erythropoetin Pending Thrombocytopenia: Worsening - Likely reactive to infection/inflammation/medication although given she usually holds a normal platelet count until recently, other factors should be considered. - Heparin antibodies will be drawn, given she is receiving dialysis - Recheck Coags and DIC work-up - D/C Heparin and NSAIS - Hold Anticoagulation when less than 50K - Transfuse Platelets if less than 10K UTI - CUltures positive for enterobacter - Cipro ordered - IgG greater than 600 - no IVIG necessary Leukocytosis: Secondary to CLL, exacerbated by infection - TLS bloodwork ordered - Status Post elitek on 12/09 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 Physician Attest: I have completed the full history and physcial and agree with above dictation, dictated as a scribe. Case was also discussed in full with nephrology
--- NOTE | 2019-12-12 16:10 | P.PN ---
Subjective 79-year-old the pleasant female came in with the worsening shortness of breath. Patient is found to have worsening renal function it has been progressively worsening patient is found to have elevated potassium of 8.6. Patient was treated with multiple doses of IV calcium gluconate, Lasix, insulin with D50 in spite of which potassium didn't respond very well because of which patient had emergent dialysis. Patient does make urine. Patient was volume overloaded because of her decreased urine output. Patient the appears to have chronic kidney disease stage IV above. Patient had elevation in serum creatinine for her his baseline. There is no evidence of infection at this time patient denied any dysuria patient denied any cough fever chills. As per the nephrology patient may have some acute blood necrosis. Patient is definitely bit volume overloaded BNP is elevated at this volume overload is probably secondary to renal failure. Although patient may have some chronic diastolic dysfunction. Cardiology evaluate the patient as well. Echocardiogram is being obtained. 12/10/2019 Patient had significant improvement in respiratory status patient is presently on the around 30 L of oxygen. Saturating well. Patient looks better serum potassium improved. Patient did undergo hemodialysis today as well. Patient urine cultures are positive for gram-negative bacilli patient is on Rocephin for urinary tract infection. 12/11/2019 Patient remains on for 4 L of oxygen patient did undergo hemodialysis today removed about 2 L today patient had about 1 L of for fluid removed via hemodialysis yesterday. still has urine output but the low, patient's symptoms are showing Enterobacter cloaca. Patient's and hematocrit will be switched to ciprofloxacin 12/12/2019 Is presently and 80 to salons and feeling better. Patient is not undergoing hemodialysis today chest x-ray is still showing some bilateral pleural effusions and pulmonary venous congestion patient [place] [address] Constitutional: Denied any fatigue denied any fever. Cardio vascular: denied any chest pain, palpitations Gastrointestinal denied any nausea vomiting Pulmonary: Denied any shortness of breath cough Neurologic denied any new focal deficits All inpatient medications were reviewed and appropriate changes in these medications as dictated in the interval history and assessment and plan. Objective - Vital Signs Vital signs: Vital Signs Temp 98.5 F 12/12/19 08:00 Pulse 111 H 12/12/19 15:31 Resp 16 12/12/19 15:00 BP 97/50 12/12/19 15:00 Pulse Ox 91 L 12/12/19 15:18 Intake & Output 12/11/19 12/12/19 12/12/19 18:59 06:59 18:59 Intake Total 755 30 500 Output Total 2180 160 100 Balance -1425 -130 400 Weight 85.1 kg 85.1 kg Intake: IV 105 30 .9NS 55 30 cefTRIAXone 1 gm In 50 Sodium Chloride 0.9% 50 ml @ 100 mls/hr IVPB Q24HR [facility] Rx#:[id number] Intake, IV Titration 50 Amount Desmopressin Acetate 17 50 mcg In Sodium Chloride 0. 9% 50 ml @ 200 mls/hr IVPB ONCE ONE Rx#: [id number] Oral 600 500 Output: Urine 180 160 100 Hemodialysis 2000 Other: Voiding Method Indwelling Catheter Indwelling Catheter Indwelling Catheter - Exam PHYSICAL EXAMINATION: GENERAL: The patient is alert and oriented x3, not in any acute distress. Well developed, well nourished. HEENT: Pupils are round and equally reacting to light. EOMI. No scleral icterus. No conjunctival pallor. Normocephalic, atraumatic. No pharyngeal erythema. No thyromegaly. CARDIOVASCULAR: S1 and S2 present. No murmurs, rubs, or gallops. PULMONARY: Chest is clear to auscultation, no wheezing or crackles. ABDOMEN: Soft, nontender, nondistended, normoactive bowel sounds. No palpable organomegaly. MUSCULOSKELETAL: No joint swelling or deformity. EXTREMITIES: No cyanosis, clubbing, or pedal edema. NEUROLOGICAL: Gross neurological examination did not reveal any focal deficits. SKIN: No rashes. - Labs CBC & Chem 7: 12/12/19 03:48 12/12/19 03:48 Labs: Abnormal Lab Results - Last 24 Hours (Table) 12/10/19 12/11/19 12/12/19 Range/Units 03:59 20:12 03:48 WBC 23.7 H (3.8-10.6) k/uL RBC 2.29 L (3.80-5.40) m/uL Hgb 7.8 L (11.4-16.0) gm/dL Hct 25.6 L (34.0-46.0) % MCV 112.0 H (80.0-100.0) fL MCHC 30.5 L (31.0-37.0) g/dL Plt Count 32 L (150-450) k/uL Macrocytosis Marked A Carbon Dioxide (22-30) mmol/L BUN (7-17) mg/dL Creatinine (0.52-1.04) mg/dL Glucose (74-99) mg/dL POC Glucose (mg/dL) 249 H (75-99) mg/dL Calcium (8.4-10.2) mg/dL Methylmalonic Acid 0.50 H (<0.40) umol/L 12/12/19 12/12/19 12/12/19 Range/Units 03:48 06:49 11:38 WBC (3.8-10.6) k/uL RBC (3.80-5.40) m/uL Hgb (11.4-16.0) gm/dL Hct (34.0-46.0) % MCV (80.0-100.0) fL MCHC (31.0-37.0) g/dL Plt Count (150-450) k/uL Macrocytosis Carbon Dioxide 34 H (22-30) mmol/L BUN 28 H (7-17) mg/dL Creatinine 2.46 H (0.52-1.04) mg/dL Glucose 112 H (74-99) mg/dL POC Glucose (mg/dL) 136 H 235 H (75-99) mg/dL Calcium 7.9 L (8.4-10.2) mg/dL Methylmalonic Acid (<0.40) umol/L Microbiology - Last 24 Hours (Table) 12/09/19 01:36 Blood Culture - Preliminary Blood No Growth after 72 hours 12/09/19 03:48 Urine Culture - Final Urine,Voided Enterobacter cloacae Assessment and Plan Plan: -Acute hypoxic respiratory failure requiring BiPAP on admission presently on aspirin and Lanoxin: Secondary to fluid overload from kidney failure and fluid retention. -Possible acute exacerbation of her chronic diastolic dysfunction -Acute on chronic renal failure stage V -Hyperkalemia: Secondary to acute renal failure, chronic kidney disease stage V. Was started on hemodialysis improved serum potassium. -Hypertension patient is hypotensive does continue antidepressant medications -Chronic lymphoid leukemia with highly elevated white blood cell count -Coronary artery disease -Hyperuricemia mild concern for the tumor lysis is low -Elevated troponin secondary to chronic kidney disease -Possible urinary tract infection with Enterobacter cloacae K because of which patient was switched to fluoroquinolones -COPD and chronic hypercapnic respiratory failure. Presently doesn't appear to be in acute exacerbation at this time -DVT prophylaxis with subcutaneous heparin
[2019-12-12 16:14] LABS: Partial Thromboplastin Time 20.5 sec (22.0-30.0)
[2019-12-12 17:02] LABS: Glucose,Whole Blood 296 mg/dL (75-99)
[2019-12-12 21:11] LABS: Glucose,Whole Blood 140 mg/dL (75-99)
[2019-12-12] MEDS: ATORVASTATIN 40 MG TAB PO SCH (21:41)
[2019-12-12] MEDS: LORazepam 1 MG TAB PO PRN (23:59)
[2019-12-13] MEDS: IPRATROPIUM-ALBUTEROL 3 ML NEB INHALATION SCH ×6 (00:04→20:05)
[2019-12-13 05:19] LABS: HCT 24.3 % (34.0-46.0); HGB 7.3 gm/dL (11.4-16.0); Hypochromasia Marked; MCH 32.9 pg (25.0-35.0); MCV 109.7 fL (80.0-100.0); Macrocytosis Marked; Mean Platelet Volume 9.7; RBC 2.22 m/uL (3.80-5.40); RDW 14.3 % (11.5-15.5); WBC 24.3 k/uL (3.8-10.6)
[2019-12-13 05:26] LABS: Platelet Count 35 k/uL (150-450)
[2019-12-13 05:28] LABS: Calcium 7.8 mg/dL (8.4-10.2); Magnesium 1.4 mg/dL (1.6-2.3); Phosphorus 3.4 mg/dL (2.5-4.5); Potassium 3.8 mmol/L (3.5-5.1)
[2019-12-13] MEDS ORDERED: Potassium Replacement Protocol 1 EACH MISC MISCELLANE PRN (06:42)
[2019-12-13 06:45] LABS: Eosinophils # (M) 0.24 k/uL (0-0.7); Lymphocytes # (M) 20.66 k/uL (1.0-4.8); Neutrophils % (M) 14 %; Nucleated Red Blood Cells 0 /100 WBC (0-0); Total Cells Counted 100
[2019-12-13] MEDS: INSULIN ASPART (NovoLOG) 100 UNIT/ML VIAL SQ SCH ×4 (07:00→20:33)
[2019-12-13] MEDS: PANTOPRAZOLE 40 MG TABLET PO SCH (07:01)
[2019-12-13] MEDS: LEVOTHYROXINE 100 MCG TAB PO SCH (07:01)
[2019-12-13] MEDS: POTASSIUM CHLORIDE ER 20 MEQ TAB.ER PO SCH ×2 (07:02→09:32)
[2019-12-13] MEDS: MIDODRINE 5 MG TAB PO SCH ×3 (07:02→17:09)
[2019-12-13] MEDS: MAGNESIUM SULFATE-D5W PMX 1 GM in DEXTROSE/WATER 1 100ML.BAG IVPB SCH ×2 (07:02→09:33)
--- NOTE | 2019-12-13 07:05 | XR ---
EXAMINATION TYPE: XR chest 1V portable DATE OF EXAM: 12/13/2019 CLINICAL HISTORY: Difficulty breathing progress study. TECHNIQUE: Single AP portable upright view of the chest is obtained. COMPARISON: Chest x-ray from one day earlier and older studies. CT chest November 06, 2019 FINDINGS: Persistent cardiomegaly with atherosclerotic thoracic aorta. Underlying scoliosis redemons trated. Background chronic emphysematous change with left greater than right bibasilar opacities rede monstrated. IMPRESSION: Chronic changes and cardiomegaly with small left greater than right pleural effusions and associated bibasilar acute atelectasis and/or infiltrate are all redemonstrated. No significant mitchell ge from one day earlier.
[2019-12-13] MEDS: BUDESONIDE 0.5 MG/2 ML NEBU INHALATION SCH ×2 (08:00→20:05)
[2019-12-13] MEDS: ESCITALOPRAM 10 MG TAB PO SCH (09:31)
[2019-12-13] MEDS: FUROSEMIDE 10 MG/ML 10 ML VIAL IV SCH ×2 (09:32→20:32)
[2019-12-13] MEDS: METOPROLOL TARTRATE 25 MG TAB PO SCH ×2 (09:32→20:33)
[2019-12-13] MEDS: CIPROFLOXACIN HCL 500 MG TAB PO SCH (09:32)
[2019-12-13] MEDS: ASPIRIN 81 MG PO SCH (09:32)
[2019-12-13] MEDS: EZETIMIBE 10 MG TAB PO SCH (09:32)
--- NOTE | 2019-12-13 10:34 | P.PN ---
Subjective Patient is seen in follow-up for acute kidney injury on chronic kidney disease and hyperkalemia. Started on hemodialysis December 08 due to oliguria and persistent hyperkalemia. blood pressure stable. Not on any vasopressors. currently awake and alert. No active chest pain or shortness of breath. dialysis was held yesterday. Creatinine today 3.35. Urine output 10-20 mL an hour. maintained on IV Lasix. Vital signs are stable. General: The patient appeared well nourished and normally developed. HEENT: Head exam is unremarkable. Neck is without jugular venous distension. LUNGS: Breath sounds decreased. HEART: Rate and Rhythm are regular. ABDOMEN: Soft, nontender. EXTREMITITES: 1+ edema. Objective - Vital Signs Vital signs: Vital Signs Temp 98.0 F 12/13/19 04:00 Pulse 78 12/13/19 08:19 Resp 13 12/13/19 07:00 BP 97/61 12/13/19 07:00 Pulse Ox 93 L 12/13/19 07:00 Intake & Output 12/12/19 12/13/19 12/13/19 18:59 06:59 18:59 Intake Total 700 650 100 Output Total 160 205 25 Balance 540 445 75 Weight 85.1 kg 96.2 kg Intake: IV 100 Magnesium Sulfate-D5w Pmx 100 1 gm In Dextrose/Water 1 100ml.bag @ 100 mls/hr IVPB Q1H [facility] Rx#: [id number] Oral 700 650 Output: Urine 160 205 25 Other: Voiding Method Indwelling Catheter Indwelling Catheter - Labs CBC & Chem 7: 12/13/19 04:59 12/13/19 04:59 Labs: Abnormal Lab Results - Last 24 Hours (Table) 12/12/19 12/12/19 12/12/19 Range/Units 11:38 15:37 17:01 WBC (3.8-10.6) k/uL RBC (3.80-5.40) m/uL Hgb (11.4-16.0) gm/dL Hct (34.0-46.0) % MCV (80.0-100.0) fL MCHC (31.0-37.0) g/dL Plt Count (150-450) k/uL Lymphocytes # (Manual) (1.0-4.8) k/uL Macrocytosis APTT 20.5 L (22.0-30.0) sec BUN (7-17) mg/dL Creatinine (0.52-1.04) mg/dL Glucose (74-99) mg/dL POC Glucose (mg/dL) 235 H 296 H (75-99) mg/dL Calcium (8.4-10.2) mg/dL Magnesium (1.6-2.3) mg/dL 12/12/19 12/13/19 12/13/19 Range/Units 21:09 04:59 04:59 WBC 24.3 H (3.8-10.6) k/uL RBC 2.22 L (3.80-5.40) m/uL Hgb 7.3 L (11.4-16.0) gm/dL Hct 24.3 L (34.0-46.0) % MCV 109.7 H (80.0-100.0) fL MCHC 30.0 L (31.0-37.0) g/dL Plt Count 35 L (150-450) k/uL Lymphocytes # (Manual) 20.66 H (1.0-4.8) k/uL Macrocytosis Marked A APTT (22.0-30.0) sec BUN 32 H (7-17) mg/dL Creatinine 3.35 H (0.52-1.04) mg/dL Glucose 133 H (74-99) mg/dL POC Glucose (mg/dL) 140 H (75-99) mg/dL Calcium 7.8 L (8.4-10.2) mg/dL Magnesium 1.4 L (1.6-2.3) mg/dL Microbiology - Last 24 Hours (Table) 12/09/19 01:36 Blood Culture - Preliminary Blood No Growth after 96 hours Assessment and Plan Plan: assessment: 1. Acute kidney injury secondary to ATN. Etiology is multifactorial - hypotension, sepsis, cardiorenal. Creatinine 5.7 on admission. No proteinuria on UA. Started on hemodialysis December 08 due to persistent hyperkalemia, volume overload and oliguria. Urine output 10-20 mL an hour. No hydronephrosis noted on kidney ultrasound. 2. Chronic kidney disease stage III secondary to nephrosclerosis with baseline creatinine in the range of 1-1.5. 3. Hyperkalemia secondary to acute kidney injury and potassium supplementation. Improved postdialysis. 4. History of CLL. Oncology following. 5. Volume overload. improving with ultrafiltration. 6. Acute on chronic diastolic CHF with moderate to severe tricuspid regurgitation and severe pulmonary hypertension. 7. Hyperphosphatemia secondary to acute kidney injury. Improved postdialysis. 8. Questionable tumor lysis. Status post rasburicase December 08. 9. Anemia of chronic kidney disease. Iron replete. maintained on Aranesp. 10. Hypomagnesemia from poor intake and diuresis. plan: hemodialysis today and again tomorrow. Will plan to hold dialysis on Monday and continue to monitor for renal recovery. Maintain Lasix 60 mg IV twice daily. Continue to monitor renal function and urine output. continue midodrine 5 mg 3 times daily. To be held if systolic blood pressure greater than 110. magnesium replaced.
--- NOTE | 2019-12-13 11:11 | P.PN ---
<Raeann Maria Tiffani - Last Filed: 12/13/19 11:09> Subjective HISTORY OF PRESENTING ILLNESS This is a pleasant 79-year-old female past medical history significant for coronary artery disease status post PCI in 2004 according to the patient, CLL, hypertension, dyslipidemia, COPD and obstructive sleep apnea. She follows in the office with Dr. Torre at [facility]. She is seen and examined sitting up in the chair in no acute distress. She has no symptoms of chest pain, shortness of breath, dizziness or palpitations. Telemetry tracings indicate she spontaneously converted to sinus mechanism. Frequent PACs are no tiffani. Laboratory data reviewed, WBC 24.3, hemoglobin 7.3, platelets 35, sodium 137, potassium 3.8 and creatinine 3.35. Blood pressure 97/61 heart rate 78 afebrile maintaining oxygen saturation on nasal cannula. Currently maintained on Lopressor 25 mg twice a day, aspirin 81 mg daily, atorvastatin 40 mg daily, Lasix 60 mg IV twice a day, Zetia 10 mg daily and midodrine 5 mg 3 times a day. PHYSICAL EXAMINATION CONSTITUTIONAL: No apparent distress. Obese. HEENT: Head is normocephalic. Pupils are equal, round. Sclerae anicteric. Mucous membranes of the mouth are moist. No JVD. No carotid bruit. CHEST EXAMINATION: Clear bilaterally. No rales, wheezes or rhonchi. No chest wall tenderness is noted on palpation or with deep breathing. HEART EXAMINATION: Irregular rate and rhythm. S1, S2 heard. No murmurs, gallops or rub. Diminished bilaterally. EXTREMITIES: 2+ peripheral pulses, no lower extremity edema and no calf tenderness. ASSESSMENT Fluid overload secondary to acute kidney injury, currently on dialysis Acute on chronic diastolic heart failure Pulmonary hypertension New onset paroxysmal atrial fibrillation with rapid ventricular rates Chronic lymphocytic leukemia Leukocytosis, secondary to CLL. Baseline 40-50K Hyperkalemia Thrombocytopenia Acute kidney injury Hypertension Dyslipidemia COPD Pulmonary hypertension Coronary artery disease status post PCI,OM in 2004 and distal circumflex 2007 PLAN She has converted to sinus mechanism with frequent PAC's. No anti-coagulation at this time secondary to thrombocytopenia. Further outpatient recommendations from her primary audio production engineer down the road. We will follow along as needed, please call with further questions or concerns. Nurse Practitioner note has been reviewed, I agree with a documented findings and plan of care. Patient was seen and examined. Objective - Vital Signs Vital signs: Vital Signs Temp 98.0 F 12/13/19 04:00 Pulse 78 12/13/19 08:19 Resp 13 12/13/19 07:00 BP 97/61 12/13/19 07:00 Pulse Ox 93 L 12/13/19 07:00 Intake & Output 12/12/19 12/13/19 12/13/19 18:59 06:59 18:59 Intake Total 700 650 100 Output Total 160 205 25 Balance 540 445 75 Weight 85.1 kg 96.2 kg Intake: IV 100 Magnesium Sulfate-D5w Pmx 100 1 gm In Dextrose/Water 1 100ml.bag @ 100 mls/hr IVPB Q1H [facility] Rx#: [id number] Oral 700 650 Output: Urine 160 205 25 Other: Voiding Method Indwelling Catheter Indwelling Catheter - Labs CBC & Chem 7: 12/13/19 04:59 12/13/19 04:59 Labs: Abnormal Lab Results - Last 24 Hours (Table) 12/12/19 12/12/19 12/12/19 Range/Units 11:38 15:37 17:01 WBC (3.8-10.6) k/uL RBC (3.80-5.40) m/uL Hgb (11.4-16.0) gm/dL Hct (34.0-46.0) % MCV (80.0-100.0) fL MCHC (31.0-37.0) g/dL Plt Count (150-450) k/uL Lymphocytes # (Manual) (1.0-4.8) k/uL Macrocytosis APTT 20.5 L (22.0-30.0) sec BUN (7-17) mg/dL Creatinine (0.52-1.04) mg/dL Glucose (74-99) mg/dL POC Glucose (mg/dL) 235 H 296 H (75-99) mg/dL Calcium (8.4-10.2) mg/dL Magnesium (1.6-2.3) mg/dL 12/12/19 12/13/19 12/13/19 Range/Units 21:09 04:59 04:59 WBC 24.3 H (3.8-10.6) k/uL RBC 2.22 L (3.80-5.40) m/uL Hgb 7.3 L (11.4-16.0) gm/dL Hct 24.3 L (34.0-46.0) % MCV 109.7 H (80.0-100.0) fL MCHC 30.0 L (31.0-37.0) g/dL Plt Count 35 L (150-450) k/uL Lymphocytes # (Manual) 20.66 H (1.0-4.8) k/uL Macrocytosis Marked A APTT (22.0-30.0) sec BUN 32 H (7-17) mg/dL Creatinine 3.35 H (0.52-1.04) mg/dL Glucose 133 H (74-99) mg/dL POC Glucose (mg/dL) 140 H (75-99) mg/dL Calcium 7.8 L (8.4-10.2) mg/dL Magnesium 1.4 L (1.6-2.3) mg/dL Microbiology - Last 24 Hours (Table) 12/09/19 01:36 Blood Culture - Preliminary Blood No Growth after 96 hours <Jose Flores - Last Filed: 12/13/19 12:12> Subjective Currently sinus rhythm with PAC's. Continue workup and treatment of acute renal failure and thrombocytopenia. Hold Plavix given prolonged time since her last stents. No anticoagulation at this time given thrombocytopenia. Followup with primary audio production engineer Dr Lockwood from [place] upon discharge. Please call with questions. Jose Flores DO Objective - Vital Signs Vital signs: Vital Signs Temp 98.0 F 12/13/19 04:00 Pulse 78 12/13/19 08:19 Resp 13 12/13/19 07:00 BP 97/61 12/13/19 07:00 Pulse Ox 93 L 12/13/19 07:00 Intake & Output 12/12/19 12/13/19 12/13/19 18:59 06:59 18:59 Intake Total 700 650 100 Output Total 160 205 25 Balance 540 445 75 Weight 85.1 kg 96.2 kg Intake: IV 100 Magnesium Sulfate-D5w Pmx 100 1 gm In Dextrose/Water 1 100ml.bag @ 100 mls/hr IVPB Q1H [facility] Rx#: [id number] Oral 700 650 Output: Urine 160 205 25 Other: Voiding Method Indwelling Catheter Indwelling Catheter - Labs CBC & Chem 7: 12/13/19 04:59 12/13/19 04:59 Labs: Abnormal Lab Results - Last 24 Hours (Table) 12/12/19 12/12/19 12/12/19 Range/Units 15:37 17:01 21:09 WBC (3.8-10.6) k/uL RBC (3.80-5.40) m/uL Hgb (11.4-16.0) gm/dL Hct (34.0-46.0) % MCV (80.0-100.0) fL MCHC (31.0-37.0) g/dL Plt Count (150-450) k/uL Lymphocytes # (Manual) (1.0-4.8) k/uL Macrocytosis APTT 20.5 L (22.0-30.0) sec BUN (7-17) mg/dL Creatinine (0.52-1.04) mg/dL Glucose (74-99) mg/dL POC Glucose (mg/dL) 296 H 140 H (75-99) mg/dL Calcium (8.4-10.2) mg/dL Magnesium (1.6-2.3) mg/dL 12/13/19 12/13/19 12/13/19 Range/Units 04:59 04:59 11:47 WBC 24.3 H (3.8-10.6) k/uL RBC 2.22 L (3.80-5.40) m/uL Hgb 7.3 L (11.4-16.0) gm/dL Hct 24.3 L (34.0-46.0) % MCV 109.7 H (80.0-100.0) fL MCHC 30.0 L (31.0-37.0) g/dL Plt Count 35 L (150-450) k/uL Lymphocytes # (Manual) 20.66 H (1.0-4.8) k/uL Macrocytosis Marked A APTT (22.0-30.0) sec BUN 32 H (7-17) mg/dL Creatinine 3.35 H (0.52-1.04) mg/dL Glucose 133 H (74-99) mg/dL POC Glucose (mg/dL) 147 H (75-99) mg/dL Calcium 7.8 L (8.4-10.2) mg/dL Magnesium 1.4 L (1.6-2.3) mg/dL Microbiology - Last 24 Hours (Table) 12/09/19 01:36 Blood Culture - Preliminary Blood No Growth after 96 hours
[2019-12-13 11:49] LABS: Glucose,Whole Blood 147 mg/dL (75-99)
[2019-12-13] MEDS ORDERED: DARBEPOETIN ALFA 40 MCG/0.4 ML SYRINGE SQ SCH (12:00)
--- NOTE | 2019-12-13 13:50 | P.PN ---
Subjective Progress Note Date: 12/13/19 79-year-old female patient well-known to me. Patient has known history of advanced COPD, chronic hypoxic respiratory failure maintained on oxygen between 4 and 5 L per minute nasal cannula, severe obstructive sleep apnea with declined CPAP therapy over the years, history of coronary artery disease, history of CLL and severe pulmonary hypertension with right-sided heart failure. I have known this patient for many years and I'm taking care of her. She has been having progressive decline in her overall condition and health status. She has also component of chronic kidney disease. She came into the emergency department after having some worsening shortness of breath. She tried to fight it off at home. Nevertheless, ultimately condition got worse and she came into the hospital where she was utilized to have a acute on top of chronic kidney failure with a creatinine up to 5.7 and a potassium level of 8.6. The patient received the combination of treatment for hyperkalemia including IV calcium, IV bicarbonate and IV Lasix in addition to nebulized albuterol nebulized treatments and IV insulin with D50 sugar. Potassium level gradually came down to 7.2 from a baseline of 8.6. Nevertheless it was not enough and the patient also has a component of fluid overload and the urine output was in the order of 20 mL an hour. At that point I decided to proceed with dialysis in regards to hyper lipidemia. The patient uses only 200 mL of urine output following an 80 mg IV Lasix push and dialysis catheter was inserted by vascular surgery and the patient will be proceeding with dialysis. Noted the proBNP level is elevated and the chest x-ray is consistent with CHF and fluid overload. The patient is currently on a BiPAP at a pressure of 12/6 cm of water with an FiO2 of 50%. She is arousable pH is communicating. No significant cardiac arrhythmias related to hyperkalemia. Her basal lactic acid level was at 3.7 and came up to 1.7. On today's evaluation of 12/10/2019, the patient is awake and alert and she is communicating pH was taken off the BiPAP this morning and the patient was placed on 15 L high flow oxygen. The patient is doing well. She is communicating pH is alert and oriented 3. As mentioned earlier, the patient was started on hemodialysis and she was infiltrated with removal of 1 L of fluid. Chest x-ray still showing some increased volume yet improved compared to earlier chest x- rays. No fever. No chills. No chest pain. There is adequate urine output in the order of 30-40 mL an hour and the patient is also receiving IV Lasix at a dose of 60 mg every 12 hours. The patient's creatinine is at 3.9 with a BUN of 80. Potassium level has also improved is down to 5.3. Note that overnight, the patient slept on BiPAP at a pressure of 12/6 cm of water. She is moving all 4 extremities. Lactic acid level has also improved. The urine is showing gram-negative bacillus and the patient is currently covered with IV Rocephin. On 12/11/2019, patient is being seen for a follow-up. Doing well. FiO2 has been weaned down to 12 L and his saturations around 91%. The patient did not wear her BiPAP overnight. She remains in atrial fibrillation. Rate is slightly tachycardic. The patient's urine output is still low and the patient is going to undergo a hemodialysis with ultrafiltration today. The patient's last echo was at 34 consistent with her CLL. Creatinine is at 2.5 with a BUN of 43. The fluid balance over the past 24 hours is -2.4 L. The chest x-ray shows improvement in the aeration although there is some limited bilateral lower lobe pleural effusion and infiltrates still present. Urine culture is still pending although it's consistent with UTI with gram-negative bacillus. The patient is going to have a third session of hemodialysis today. The patient is also on Lasix 60 mg IV push every 12 hours. Renal function will be monitored very closely. Urine output in the order of 30-35 mL an hour. No hydronephrosis on her ultrasound of the kidneys. No cough. No sputum production. No chest tightness. No wheezing. 12/12/2019, the patient is doing well. Oxygenation is improved and the patient is currently down to 8 L of oxygen by nasal cannula. Urine output remains low and order of 10 mL an hour and the patient is on IV Lasix. Note that the patient underwent dialysis yesterday which he tolerated it very well and she had a total of 2 L of ultrafiltration. BP is stable for now. Chest x-ray is showing small bilateral pleural effusions in the lung bases in addition to pulmonary vascular congestion. She is on no pressors. She is afebrile. Urine culture tube turner to be positive for Enterobacter and the patient was taken off the Rocephin and she was placed on ciprofloxacin. The patient's white cell count is 23.7 which is lower. The hemogram is stable at 7.8. Platelet count has been low at 32. On today's evaluation she has a BUN of 28 with a creatinine of 2.4. The patient will not have hemodialysis today. The patient will be trialed on IV Lasix and the urine output was monitored very closely. No fever. No chills no altered mentation and no other significant events overnight. 12/13/2019 and see the patient for a follow-up. She is doing well. No specific complaints. She does not have dialysis yesterday. He dialysis session will be done today. She remains on 8 L about 2 by nasal cannula that was weaned down to 6 L. Chest exit still showing pulmonary vessel congestion and some small left-sided pleural effusion. Her cardiac rhythm is sinus. No signs of any COPD exacerbation. She remains on Lasix 60 mg IV push every 12 hours. Her urine output remains low and we are concerned that she may end up requiring long-term dialysis. As mentioned earlier, she was found to have Enterobacter in her urine culture and the patient is currently on ciprofloxacin 500 mg by mouth on a daily basis. Outpatient medications have been ordered resume. No fever. No chills. No altered mentation. She is being worked up for a physical therapy and she is doing some limited and ventilation on today's evaluation. Objective - Vital Signs Vital signs: Vital Signs Temp 98.0 F 12/13/19 04:00 Pulse 86 12/13/19 12:29 Resp 13 12/13/19 07:00 BP 97/61 12/13/19 07:00 Pulse Ox 93 L 12/13/19 07:00 Intake & Output 12/12/19 12/13/19 12/13/19 18:59 06:59 18:59 Intake Total 700 650 100 Output Total 160 205 25 Balance 540 445 75 Weight 85.1 kg 96.2 kg Intake: IV 100 Magnesium Sulfate-D5w Pmx 100 1 gm In Dextrose/Water 1 100ml.bag @ 100 mls/hr IVPB Q1H [facility] Rx#: [id number] Oral 700 650 Output: Urine 160 205 25 Other: Voiding Method Indwelling Catheter Indwelling Catheter - Exam General Appearance no diaphoresis, no respiratory distress, speech not interrupted by breaths, no dyspnea, no pallor, not cachectic, well nourished, appears well, morbid obesity. The patient is awake and alert. And oriented. The patient is currently on 12 L of oxygen by nasal cannula. Head exam was generally normal. There was no scleral icterus or corneal arcus. Mucous membranes were moist. Neck was supple and without jugular venous distension, thyromegaly, or carotid bruits. Carotids were easily palpable bilaterally. There was no adenopathy. Classification: Class 4 Chest no sternocleidomastoid muscle contractions, no supraclavicular retractions, no intercostal retractions, no decreased air movement, no rhonchi, barrel chest, prolonged expiratory wheezing, decreased air movement, hyperinflation Heart no right ventricular heave, no distant heart sounds, no s3 gallop, (normal) jugular vein: jugular venous distention: by 0cm GI bowel sounds: hyperactive (borborygmi), bowel sounds: diminished or absent Extremities no cyanosis, no clubbing, no edema Neurologic alert and oriented 3 and the patient has no significant somnolence, no somnolence, no confusion, moaning all 4 extremities without any limitation Examination of the skin revealed no evidence of significant rashes, suspicious appearing nevi or other concerning lesions. - Labs CBC & Chem 7: 12/13/19 04:59 12/13/19 04:59 Labs: Abnormal Lab Results - Last 24 Hours (Table) 12/12/19 12/12/19 12/12/19 Range/Units 15:37 17:01 21:09 WBC (3.8-10.6) k/uL RBC (3.80-5.40) m/uL Hgb (11.4-16.0) gm/dL Hct (34.0-46.0) % MCV (80.0-100.0) fL MCHC (31.0-37.0) g/dL Plt Count (150-450) k/uL Lymphocytes # (Manual) (1.0-4.8) k/uL Macrocytosis APTT 20.5 L (22.0-30.0) sec BUN (7-17) mg/dL Creatinine (0.52-1.04) mg/dL Glucose (74-99) mg/dL POC Glucose (mg/dL) 296 H 140 H (75-99) mg/dL Calcium (8.4-10.2) mg/dL Magnesium (1.6-2.3) mg/dL 12/13/19 12/13/19 12/13/19 Range/Units 04:59 04:59 11:47 WBC 24.3 H (3.8-10.6) k/uL RBC 2.22 L (3.80-5.40) m/uL Hgb 7.3 L (11.4-16.0) gm/dL Hct 24.3 L (34.0-46.0) % MCV 109.7 H (80.0-100.0) fL MCHC 30.0 L (31.0-37.0) g/dL Plt Count 35 L (150-450) k/uL Lymphocytes # (Manual) 20.66 H (1.0-4.8) k/uL Macrocytosis Marked A APTT (22.0-30.0) sec BUN 32 H (7-17) mg/dL Creatinine 3.35 H (0.52-1.04) mg/dL Glucose 133 H (74-99) mg/dL POC Glucose (mg/dL) 147 H (75-99) mg/dL Calcium 7.8 L (8.4-10.2) mg/dL Magnesium 1.4 L (1.6-2.3) mg/dL Microbiology - Last 24 Hours (Table) 12/09/19 01:36 Blood Culture - Preliminary Blood No Growth after 96 hours Assessment and Plan Plan: 1 acute hypoxic respiratory failure currently on 6 L of oxygen by nasal cannula. Chest x-ray still showing some pulmonary vessel congestion, fluid overload and small bilateral pleural effusion. 2 acute on chronic kidney failure. The renal function is still impaired and the patient is requiring dialysis of the urine output is still low despite being on Lasix. 3 acute hyperkalemia secondary to above, improved, and we can to follow that the patient was taking Bactrim on outpatient basis was essentially contributed to hyperkalemia. Potassium level is normalized. 4 severe COPD with chronic hypoxic and hypercapnic respiratory failure patient wears for a half liters of oxygen on a regular basis, and she is maintained on a combination of Primacor, Perforomist, Yupelri, and albuterol rescue inhaler on an as-needed basis 5. Secondary pulmonary hypertension with a preserved LV function and ejection fraction of 55% 6. Chronic lymphoid leukemia, with chronic lymphocytosis and chronic anemia with thrombocytopenia 7 History of hypogammaglobulinemia and she is on supplements 8. essential hypertension 9 coronary arteriosclerosis 10. 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 11 hyperuricemia 12 troponin leak 13 UTI secondary to Enterobacter. The patient is currently on ciprofloxacin. Plan Wean the FiO2 , currently on 6 L of oxygen by nasal cannula Continue oral ciprofloxacin 500 mg by mouth daily Monitor hematologic profile. The white cell count is improved and the platelet remains low Monitor urine output and the patient on IV Lasix 60 mg IV push every 12 hours Nephrology is on the case in regards to any need for renal replacement therapy and the patient will be receiving another session of hemodialysis today We'll try to wean off FiO2 as tolerated to maintain a saturation above 90%. Her oxygenation in general is improving. The patient may be chest at the medical surgical floor at a later stage once the dialysis completed. She is working with physical therapy. We'll continue to follow.
[2019-12-13] MEDS ORDERED: LIDOCAINE 1% INJ 10MG/ML (20 ML MDV) ONE (14:00)
[2019-12-13] MEDS ORDERED: HEPARIN SODIUM,PORCINE 5,000 UNIT/ML 1 ML VIAL ONE (14:00)
[2019-12-13] MEDS ORDERED: MIDODRINE 5 MG TAB PO STA (14:10)
--- NOTE | 2019-12-13 14:47 | P.PN ---
Subjective 79-year-old the pleasant female came in with the worsening shortness of breath. Patient is found to have worsening renal function it has been progressively worsening patient is found to have elevated potassium of 8.6. Patient was treated with multiple doses of IV calcium gluconate, Lasix, insulin with D50 in spite of which potassium didn't respond very well because of which patient had emergent dialysis. Patient does make urine. Patient was volume overloaded because of her decreased urine output. Patient the appears to have chronic kidney disease stage IV above. Patient had elevation in serum creatinine for her his baseline. There is no evidence of infection at this time patient denied any dysuria patient denied any cough fever chills. As per the nephrology patient may have some acute blood necrosis. Patient is definitely bit volume overloaded BNP is elevated at this volume overload is probably secondary to renal failure. Although patient may have some chronic diastolic dysfunction. Cardiology evaluate the patient as well. Echocardiogram is being obtained. 12/10/2019 Patient had significant improvement in respiratory status patient is presently on the around 30 L of oxygen. Saturating well. Patient looks better serum potassium improved. Patient did undergo hemodialysis today as well. Patient urine cultures are positive for gram-negative bacilli patient is on Rocephin for urinary tract infection. 12/11/2019 Patient remains on for 4 L of oxygen patient did undergo hemodialysis today removed about 2 L today patient had about 1 L of for fluid removed via hemodialysis yesterday. still has urine output but the low, patient's symptoms are showing Enterobacter cloaca. Patient's and hematocrit will be switched to ciprofloxacin 12/12/2019 Is presently and 80 to salons and feeling better. Patient is not undergoing hemodialysis today chest x-ray is still showing some bilateral pleural effusions and pulmonary venous congestion patient [place] [id number] 12/13/2019 She is presently on 6 L of pulse and will be transferred to ICU patient is receiving hemodialysis today Constitutional: Denied any fatigue denied any fever. Cardio vascular: denied any chest pain, palpitations Gastrointestinal denied any nausea vomiting Pulmonary: Denied any shortness of breath cough Neurologic denied any new focal deficits All inpatient medications were reviewed and appropriate changes in these medications as dictated in the interval history and assessment and plan. Objective - Vital Signs Vital signs: Vital Signs Temp 98.0 F 12/13/19 04:00 Pulse 86 12/13/19 12:29 Resp 13 12/13/19 07:00 BP 97/61 12/13/19 07:00 Pulse Ox 93 L 12/13/19 07:00 Intake & Output 12/12/19 12/13/19 12/13/19 18:59 06:59 18:59 Intake Total 700 650 100 Output Total 160 205 25 Balance 540 445 75 Weight 85.1 kg 96.2 kg Intake: IV 100 Magnesium Sulfate-D5w Pmx 100 1 gm In Dextrose/Water 1 100ml.bag @ 100 mls/hr IVPB Q1H [facility] Rx#: [id number] Oral 700 650 Output: Urine 160 205 25 Other: Voiding Method Indwelling Catheter Indwelling Catheter - Exam PHYSICAL EXAMINATION: GENERAL: The patient is alert and oriented x3, not in any acute distress. Well developed, well nourished. HEENT: Pupils are round and equally reacting to light. EOMI. No scleral icterus. No conjunctival pallor. Normocephalic, atraumatic. No pharyngeal erythema. No thyromegaly. CARDIOVASCULAR: S1 and S2 present. No murmurs, rubs, or gallops. PULMONARY: Chest is clear to auscultation, no wheezing or crackles. ABDOMEN: Soft, nontender, nondistended, normoactive bowel sounds. No palpable organomegaly. MUSCULOSKELETAL: No joint swelling or deformity. EXTREMITIES: No cyanosis, clubbing, or pedal edema. NEUROLOGICAL: Gross neurological examination did not reveal any focal deficits. SKIN: No rashes. - Labs CBC & Chem 7: 12/13/19 04:59 12/13/19 04:59 Labs: Abnormal Lab Results - Last 24 Hours (Table) 12/12/19 12/12/19 12/12/19 Range/Units 15:37 17:01 21:09 WBC (3.8-10.6) k/uL RBC (3.80-5.40) m/uL Hgb (11.4-16.0) gm/dL Hct (34.0-46.0) % MCV (80.0-100.0) fL MCHC (31.0-37.0) g/dL Plt Count (150-450) k/uL Lymphocytes # (Manual) (1.0-4.8) k/uL Macrocytosis APTT 20.5 L (22.0-30.0) sec BUN (7-17) mg/dL Creatinine (0.52-1.04) mg/dL Glucose (74-99) mg/dL POC Glucose (mg/dL) 296 H 140 H (75-99) mg/dL Calcium (8.4-10.2) mg/dL Magnesium (1.6-2.3) mg/dL 12/13/19 12/13/19 12/13/19 Range/Units 04:59 04:59 11:47 WBC 24.3 H (3.8-10.6) k/uL RBC 2.22 L (3.80-5.40) m/uL Hgb 7.3 L (11.4-16.0) gm/dL Hct 24.3 L (34.0-46.0) % MCV 109.7 H (80.0-100.0) fL MCHC 30.0 L (31.0-37.0) g/dL Plt Count 35 L (150-450) k/uL Lymphocytes # (Manual) 20.66 H (1.0-4.8) k/uL Macrocytosis Marked A APTT (22.0-30.0) sec BUN 32 H (7-17) mg/dL Creatinine 3.35 H (0.52-1.04) mg/dL Glucose 133 H (74-99) mg/dL POC Glucose (mg/dL) 147 H (75-99) mg/dL Calcium 7.8 L (8.4-10.2) mg/dL Magnesium 1.4 L (1.6-2.3) mg/dL Microbiology - Last 24 Hours (Table) 12/09/19 01:36 Blood Culture - Preliminary Blood No Growth after 96 hours Assessment and Plan Plan: -Acute hypoxic respiratory failure requiring BiPAP on admission presently on 6 L of oxygen Secondary to fluid overload from kidney failure and fluid retention. -Possible acute exacerbation of her chronic diastolic dysfunction -Acute on chronic renal failure stage V -Hyperkalemia: Secondary to acute renal failure, chronic kidney disease stage V. Was started on hemodialysis improved serum potassium. -Hypertension patient is hypotensive does continue antidepressant medications -Chronic lymphoid leukemia with highly elevated white blood cell count -Coronary artery disease -Hyperuricemia mild concern for the tumor lysis is low -Elevated troponin secondary to chronic kidney disease -Possible urinary tract infection with Enterobacter cloacae K because of which patient was switched to fluoroquinolones -COPD and chronic hypercapnic respiratory failure. Presently doesn't appear to be in acute exacerbation at this time -DVT prophylaxis with subcutaneous heparin
[2019-12-13] MEDS ORDERED: CYANOCOBALAMIN 500 MCG TAB PO SCH (15:00)
--- NOTE | 2019-12-13 15:03 | P.PN ---
Subjective Progress Note Date: 12/13/19 Principal diagnosis: renal failure trav is sitting up in chair no acute cocmplaints. It appears she was more hypoxic today, although denies new cough, sob. Chest xray was reviewed and no obvious acute findings. Objective - Vital Signs Vital signs: Vital Signs Temp 98.0 F 12/13/19 04:00 Pulse 78 12/13/19 08:19 Resp 13 12/13/19 07:00 BP 97/61 12/13/19 07:00 Pulse Ox 93 L 12/13/19 07:00 Intake & Output 12/12/19 12/13/19 12/13/19 18:59 06:59 18:59 Intake Total 700 650 100 Output Total 160 205 25 Balance 540 445 75 Weight 85.1 kg 96.2 kg Intake: IV 100 Magnesium Sulfate-D5w Pmx 100 1 gm In Dextrose/Water 1 100ml.bag @ 100 mls/hr IVPB Q1H [facility] Rx#: [id number] Oral 700 650 Output: Urine 160 205 25 Other: Voiding Method Indwelling Catheter Indwelling Catheter - Exam - Constitutional General appearance: cooperative, no acute distress - EENT Eyes: EOMI ENT: hard of hearing, NA/AT - Neck Neck: normal ROM - Respiratory Respiratory: left: wheezing, bilateral: diminished - Cardiovascular Rhythm: regularly irregular leg Peripheral Edema: bilateral: 1+ - Gastrointestinal General gastrointestinal: normal bowel sounds, soft - Integumentary Integumentary: pale - Neurologic non focal - Musculoskeletal Musculoskeletal: generalized weakness - Psychiatric Flat affect - Labs CBC & Chem 7: 12/13/19 04:59 12/13/19 04:59 Labs: Abnormal Lab Results - Last 24 Hours (Table) 12/12/19 12/12/19 12/12/19 Range/Units 11:38 15:37 17:01 WBC (3.8-10.6) k/uL RBC (3.80-5.40) m/uL Hgb (11.4-16.0) gm/dL Hct (34.0-46.0) % MCV (80.0-100.0) fL MCHC (31.0-37.0) g/dL Plt Count (150-450) k/uL Lymphocytes # (Manual) (1.0-4.8) k/uL Macrocytosis APTT 20.5 L (22.0-30.0) sec BUN (7-17) mg/dL Creatinine (0.52-1.04) mg/dL Glucose (74-99) mg/dL POC Glucose (mg/dL) 235 H 296 H (75-99) mg/dL Calcium (8.4-10.2) mg/dL Magnesium (1.6-2.3) mg/dL 12/12/19 12/13/19 12/13/19 Range/Units 21:09 04:59 04:59 WBC 24.3 H (3.8-10.6) k/uL RBC 2.22 L (3.80-5.40) m/uL Hgb 7.3 L (11.4-16.0) gm/dL Hct 24.3 L (34.0-46.0) % MCV 109.7 H (80.0-100.0) fL MCHC 30.0 L (31.0-37.0) g/dL Plt Count 35 L (150-450) k/uL Lymphocytes # (Manual) 20.66 H (1.0-4.8) k/uL Macrocytosis Marked A APTT (22.0-30.0) sec BUN 32 H (7-17) mg/dL Creatinine 3.35 H (0.52-1.04) mg/dL Glucose 133 H (74-99) mg/dL POC Glucose (mg/dL) 140 H (75-99) mg/dL Calcium 7.8 L (8.4-10.2) mg/dL Magnesium 1.4 L (1.6-2.3) mg/dL Microbiology - Last 24 Hours (Table) 12/09/19 01:36 Blood Culture - Preliminary Blood No Growth after 96 hours Assessment and Plan (1) Acute renal failure superimposed on chronic kidney disease, on chronic dialysis Current Visit: Yes Status: Acute Code(s): N17.9 - ACUTE KIDNEY FAILURE, UNSPECIFIED; N18.9 - CHRONIC KIDNEY DISEASE, UNSPECIFIED; Z99.2 - DEPENDENCE ON RENAL DIALYSIS SNOMED Code(s): 305406443 (2) CARLOS (acute kidney injury) Current Visit: Yes Status: Acute Code(s): N17.9 - ACUTE KIDNEY FAILURE, UNSP ECIFIED SNOMED Code(s): 27900748 (3) CLL (chronic lymphocytic leukemia) Current Visit: Yes Status: Acute Code(s): C91.10 - CHRONIC LYMPHOCYTIC LEUK OF B-CELL TYPE NOT ACHIEVE REMIS SNOMED Code(s): 43750907 (4) COPD (chronic obstructive pulmonary disease) Current Visit: Yes Status: Acute Code(s): J44.9 - CHRONIC OBSTRUCTIVE PULMONARY DISEASE, UNSPECIFIED SNOMED Code(s): 61914550 (5) Congestive heart failure Current Visit: Yes Status: Acute Code(s): I50.9 - HEART FAILURE, UNSPECIFIED SNOMED Code(s): 87380170 (6) Leukocytosis Current Visit: No Status: Acute Code(s): D72.829 - ELEVATED WHITE BLOOD CELL COUNT, UNSPECIFIED SNOMED Code(s): 233368953 (7) Macrocytic anemia Current Visit: Yes Status: Acute Code(s): D53.9 - NUTRITIONAL ANEMIA, UNSPECIFIED SNOMED Code(s): 18892957 Plan: Assessment and Plan: Acute on Chronic Hypoxic Respiratory Failure: - Pulmonology Following and monitored in ICU - Improved initially, today requiring 6 L Acute Renal Failure on Chronic Kidney Disease: Stage unknown - Nephrology FOllowing - Hemodialysis per nephro - Improving Chronic Lymphocytic Leukemia: Stable disease and improved this admission - Maintained on observation with recent CT suspicious of worsening disease, although her WBC has been relatively unchanged and at her baseline 40-50K. Discussed further with primary oncologist and at this time no treatment recommended. Worsening Macrocytic Anemia: - Multifactorial - Renal function, underlying CLL, and B12 deficiency (Normal B12 level although elevated MMA) Start B12 1000 po daily - Hemoglobin 7.3 today (no transfusion needed today) transfuse during dialysis if less than 7 - Erythropoetin Pending Thrombocytopenia: Worsening - Likely reactive to infection/inflammation/medication although given she u sually holds a normal platelet count until recently, other factors should be considered. - Heparin antibodies Negative, therefore likely secondary to acute inflammation/infection. Maybe component ITP - Monitoring Coags and for signs of bleeding - D/C Heparin and NSAIdS - No schistocytes to indicate TTP - Hold Anticoagulation when less than 50K - Transfuse Platelets if less than 10K UTI - Cultures positive for enterobacter - Cipro continued per sensitivity - IgG greater than 600 - no IVIG necessary Leukocytosis: Secondary to CLL, exacerbated by infection - TLS bloodwork ordered - Status Post elitek on 12/09 Declining Performance Status and Chronic Illness Myopathy: Improving - Possibly secondary inflammatory/infectious/renal failure - Treatment of underlying causes and re-evaluate, if improvement is seen hopefully will be candidate for PT/OT. Physician Attest: I have completed the full history and physcial and agree with above dictation, dictated as a scribe.
[2019-12-13 16:49] LABS: Glucose,Whole Blood 165 mg/dL (75-99)
[2019-12-13] MEDS: CYANOCOBALAMIN 500 MCG TAB PO SCH (17:08)
[2019-12-13 20:05] LABS: Glucose,Whole Blood 149 mg/dL (75-99)
[2019-12-13] MEDS: ATORVASTATIN 40 MG TAB PO SCH (20:33)
[2019-12-13] MEDS ORDERED: IPRATROPIUM-ALBUTEROL 3 ML NEB INHALATION PRN (21:44)
[2019-12-14 06:13] LABS: Glucose,Whole Blood 115 mg/dL (75-99)
[2019-12-14] MEDS: INSULIN ASPART (NovoLOG) 100 UNIT/ML VIAL SQ SCH ×4 (06:14→20:59)
[2019-12-14] MEDS: LEVOTHYROXINE 100 MCG TAB PO SCH (06:32)
[2019-12-14] MEDS: MIDODRINE 5 MG TAB PO SCH ×3 (06:32→17:47)
[2019-12-14] MEDS: PANTOPRAZOLE 40 MG TABLET PO SCH (06:32)
[2019-12-14] MEDS: IPRATROPIUM-ALBUTEROL 3 ML NEB INHALATION SCH ×4 (07:39→19:40)
[2019-12-14] MEDS: BUDESONIDE 0.5 MG/2 ML NEBU INHALATION SCH ×2 (07:39→19:40)
[2019-12-14] MEDS: ASPIRIN 81 MG PO SCH (09:09)
[2019-12-14] MEDS: METOPROLOL TARTRATE 25 MG TAB PO SCH ×2 (09:09→20:59)
[2019-12-14] MEDS: CIPROFLOXACIN HCL 500 MG TAB PO SCH (09:09)
[2019-12-14] MEDS: EZETIMIBE 10 MG TAB PO SCH (09:09)
[2019-12-14] MEDS: FUROSEMIDE 10 MG/ML 10 ML VIAL IV SCH ×2 (09:09→21:00)
[2019-12-14] MEDS: ESCITALOPRAM 10 MG TAB PO SCH (09:09)
[2019-12-14 11:58] LABS: Glucose,Whole Blood 130 mg/dL (75-99)
--- NOTE | 2019-12-14 11:58 | P.PN ---
Subjective 79-year-old the pleasant female came in with the worsening shortness of breath. Patient is found to have worsening renal function it has been progressively worsening patient is found to have elevated potassium of 8.6. Patient was treated with multiple doses of IV calcium gluconate, Lasix, insulin with D50 in spite of which potassium didn't respond very well because of which patient had emergent dialysis. Patient does make urine. Patient was volume overloaded because of her decreased urine output. Patient the appears to have chronic kidney disease stage IV above. Patient had elevation in serum creatinine for her his baseline. There is no evidence of infection at this time patient denied any dysuria patient denied any cough fever chills. As per the nephrology patient may have some acute blood necrosis. Patient is definitely bit volume overloaded BNP is elevated at this volume overload is probably secondary to renal failure. Although patient may have some chronic diastolic dysfunction. Cardiology evaluate the patient as well. Echocardiogram is being obtained. 12/10/2019 Patient had significant improvement in respiratory status patient is presently on the around 30 L of oxygen. Saturating well. Patient looks better serum potassium improved. Patient did undergo hemodialysis today as well. Patient urine cultures are positive for gram-negative bacilli patient is on Rocephin for urinary tract infection. 12/11/2019 Patient remains on for 4 L of oxygen patient did undergo hemodialysis today removed about 2 L today patient had about 1 L of for fluid removed via hemodialysis yesterday. still has urine output but the low, patient's symptoms are showing Enterobacter cloaca. Patient's and hematocrit will be switched to ciprofloxacin 12/12/2019 Is presently and 80 to salons and feeling better. Patient is not undergoing hemodialysis today chest x-ray is still showing some bilateral pleural effusions and pulmonary venous congestion patient [place] [id number] 12/13/2019 She is presently on 6 L of pulse and will be transferred to ICU patient is receiving hemodialysis today 12/14/2019 Patient is presently on liters of oxygen and patient does use for his of oxygen at home, patient will undergo hemodialysis today. Physical diarrhea patient evaluation possibility of discharge on Monday Constitutional: Denied any fatigue denied any fever. Cardio vascular: denied any chest pain, palpitations Gastrointestinal denied any nausea vomiting Pulmonary: Denied any shortness of breath cough Neurologic denied any new focal deficits All inpatient medications were reviewed and appropriate changes in these medications as dictated in the interval history and assessment and plan. Objective - Vital Signs Vital signs: Vital Signs Temp 98.8 F 12/14/19 08:00 Pulse 73 12/14/19 11:10 Resp 19 12/14/19 08:00 BP 110/56 12/14/19 08:00 Pulse Ox 91 L 12/14/19 08:00 Intake & Output 12/13/19 12/14/19 12/14/19 18:59 06:59 18:59 Intake Total 920 Output Total 2210 200 Balance -1290 -200 Weight 95.8 kg Intake: IV 200 Magnesium Sulfate-D5w Pmx 200 1 gm In Dextrose/Water 1 100ml.bag @ 100 mls/hr IVPB Q1H [facility] Rx#: [id number] Oral 720 Output: Urine 210 200 Hemodialysis 2000 Other: Voiding Method Indwelling Catheter Indwelling Catheter Indwelling Catheter - Exam PHYSICAL EXAMINATION: GENERAL: The patient is alert and oriented x3, not in any acute distress. Well developed, well nourished. HEENT: Pupils are round and equally reacting to light. EOMI. No scleral icterus. No conjunctival pallor. Normocephalic, atraumatic. No pharyngeal erythema. No th yromegaly. CARDIOVASCULAR: S1 and S2 present. No murmurs, rubs, or gallops. PULMONARY: Chest is clear to auscultation, no wheezing or crackles. ABDOMEN: Soft, nontender, nondistended, normoactive bowel sounds. No palpable organomegaly. MUSCULOSKELETAL: No joint swelling or deformity. EXTREMITIES: No cyanosis, clubbing, or pedal edema. NEUROLOGICAL: Gross neurological examination did not reveal any focal deficits. SKIN: No rashes. - Labs CBC & Chem 7: 12/13/19 04:59 12/13/19 04:59 Labs: Abnormal Lab Results - Last 24 Hours (Table) 12/13/19 12/13/19 12/13/19 Range/Units 04:59 16:48 20:04 POC Glucose (mg/dL) 165 H 149 H (75-99) mg/dL IgG 554.0 L (700.0-1600.0) mg/dL 12/14/19 Range/Units 06:08 POC Glucose (mg/dL) 115 H (75-99) mg/dL IgG (700.0-1600.0) mg/dL Microbiology - Last 24 Hours (Table) 12/09/19 01:36 Blood Culture - Preliminary Blood No Growth after 120 hours Assessment and Plan Plan: -Acute hypoxic respiratory failure requiring BiPAP on admission presently on 4 L of oxygen Secondary to fluid overload from kidney failure and fluid retention.hemodialysis today -Possible acute exacerbation of her chronic diastolic dysfunction -Acute on chronic renal failure stage V -Hyperkalemia: Secondary to acute renal failure, chronic kidney disease stage V. 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 Presently doesn't appear to be in acute exacerbation at this time -DVT prophylaxis with subcutaneous heparin
--- NOTE | 2019-12-14 12:40 | P.PN ---
Subjective Progress Note Date: 12/14/19 79-year-old female patient well-known to me. Patient has known history of advanced COPD, chronic hypoxic respiratory failure maintained on oxygen between 4 and 5 L per minute nasal cannula, severe obstructive sleep apnea with declined CPAP therapy over the years, history of coronary artery disease, history of CLL and severe pulmonary hypertension with right-sided heart failure. I have known this patient for many years and I'm taking care of her. She has been having progressive decline in her overall condition and health status. She has also component of chronic kidney disease. She came into the emergency department after having some worsening shortness of breath. She tried to fight it off at home. Nevertheless, ultimately condition got worse and she came into the hospital where she was utilized to have a acute on top of chronic kidney failure with a creatinine up to 5.7 and a potassium level of 8.6. The patient received the combination of treatment for hyperkalemia including IV calcium, IV bicarbonate and IV Lasix in addition to nebulized albuterol nebulized treatments and IV insulin with D50 sugar. Potassium level gradually came down to 7.2 from a baseline of 8.6. Nevertheless it was not enough and the patient also has a component of fluid overload and the urine output was in the order of 20 mL an hour. At that point I decided to proceed with dialysis in regards to hyper lipidemia. The patient uses only 200 mL of urine output following an 80 mg IV Lasix push and dialysis catheter was inserted by vascular surgery and the patient will be proceeding with dialysis. Noted the proBNP level is elevated and the chest x-ray is consistent with CHF and fluid overload. The patient is currently on a BiPAP at a pressure of 12/6 cm of water with an FiO2 of 50%. She is arousable pH is communicating. No significant cardiac arrhythmias related to hyperkalemia. Her basal lactic acid level was at 3.7 and came up to 1.7. On today's evaluation of 12/10/2019, the patient is awake and alert and she is communicating pH was taken off the BiPAP this morning and the patient was placed on 15 L high flow oxygen. The patient is doing well. She is communicating pH is alert and oriented 3. As mentioned earlier, the patient was started on hemodialysis and she was infiltrated with removal of 1 L of fluid. Chest x-ray still showing some increased volume yet improved compared to earlier chest x- rays. No fever. No chills. No chest pain. There is adequate urine output in the order of 30-40 mL an hour and the patient is also receiving IV Lasix at a dose of 60 mg every 12 hours. The patient's creatinine is at 3.9 with a BUN of 80. Potassium level has also improved is down to 5.3. Note that overnight, the patient slept on BiPAP at a pressure of 12/6 cm of water. She is moving all 4 extremities. Lactic acid level has also improved. The urine is showing gram-negative bacillus and the patient is currently covered with IV Rocephin. On 12/11/2019, patient is being seen for a follow-up. Doing well. FiO2 has been weaned down to 12 L and his saturations around 91%. The patient did not wear her BiPAP overnight. She remains in atrial fibrillation. Rate is slightly tachycardic. The patient's urine output is still low and the patient is going to undergo a hemodialysis with ultrafiltration today. The patient's last echo was at 34 consistent with her CLL. Creatinine is at 2.5 with a BUN of 43. The fluid balance over the past 24 hours is -2.4 L. The chest x-ray shows improvement in the aeration although there is some limited bilateral lower lobe pleural effusion and infiltrates still present. Urine culture is still pending although it's consistent with UTI with gram-negative bacillus. The patient is going to have a third session of hemodialysis today. The patient is also on Lasix 60 mg IV push every 12 hours. Renal function will be monitored very closely. Urine output in the order of 30-35 mL an hour. No hydronephrosis on her ultrasound of the kidneys. No cough. No sputum production. No chest tightness. No wheezing. 12/12/2019, the patient is doing well. Oxygenation is improved and the patient is currently down to 8 L of oxygen by nasal cannula. Urine output remains low and order of 10 mL an hour and the patient is on IV Lasix. Note that the patient underwent dialysis yesterday which he tolerated it very well and she had a total of 2 L of ultrafiltration. BP is stable for now. Chest x-ray is showing small bilateral pleural effusions in the lung bases in addition to pulmonary vascular congestion. She is on no pressors. She is afebrile. Urine culture outreach team member to be positive for Enterobacter and the patient was taken off the Rocephin and she was placed on ciprofloxacin. The patient's white cell count is 23.7 which is lower. The hemogram is stable at 7.8. Platelet count has been low at 32. On today's evaluation she has a BUN of 28 with a creatinine of 2.4. The patient will not have hemodialysis today. The patient will be trialed on IV Lasix and the urine output was monitored very closely. No fever. No chills no altered mentation and no other significant events overnight. 12/13/2019 and see the patient for a follow-up. She is doing well. No specific complaints. She does not have dialysis yesterday. He dialysis session will be done today. She remains on 8 L about 2 by nasal cannula that was weaned down to 6 L. Chest exit still showing pulmonary vessel congestion and some small left-sided pleural effusion. Her cardiac rhythm is sinus. No signs of any COPD exacerbation. She remains on Lasix 60 mg IV push every 12 hours. Her urine output remains low and we are concerned that she may end up requiring long-term dialysis. As mentioned earlier, she was found to have Enterobacter in her urine culture and the patient is currently on ciprofloxacin 500 mg by mouth on a daily basis. Outpatient medications have been ordered resume. No fever. No chills. No altered mentation. She is being worked up for a physical therapy and she is doing some limited and ventilation on today's evaluation. On 12/14/2019, the patient is on 4 L of oxygen by nasal cannula. The patient underwent hemodialysis yesterday. There was further improvement in the volume status and the patient is currently on 4 L. No respiratory distress. We're monitoring the urine output. She has a Boggs catheter in place. Urine output remains low. I'm not sure if the patient is going to need long-term renal r eplacement therapy. The patient remains on oral Cipro floxacillin regarding her Enterobacter UTI. The patient is also on Lasix 60 mg IV push every 12 hours. The patient is on DuoNeb nebulized treatments around the clock. No altered mentation. She is ambulating. She is able to sit up on a recliner. She is able to tolerate her diet. No other respirations for now. Objective - Vital Signs Vital signs: Vital Signs Temp 98.8 F 12/14/19 08:00 Pulse 73 12/14/19 11:10 Resp 19 12/14/19 08:00 BP 110/56 12/14/19 08:00 Pulse Ox 91 L 12/14/19 08:00 Intake & Output 12/13/19 12/14/19 12/14/19 18:59 06:59 18:59 Intake Total 920 Output Total 2210 200 Balance -1290 -200 Weight 95.8 kg Intake: IV 200 Magnesium Sulfate-D5w Pmx 200 1 gm In Dextrose/Water 1 100ml.bag @ 100 mls/hr IVPB Q1H [facility] Rx#: [id number] Oral 720 Output: Urine 210 200 Hemodialysis 2000 Other: Voiding Method Indwelling Catheter Indwelling Catheter Indwelling Catheter - Exam General Appearance no diaphoresis, no respiratory distress, speech not interrupted by breaths, no dyspnea, no pallor, not cachectic, well nourished, appears well, morbid obesity. The patient is awake and alert. And oriented. The patient is currently on 4 L of oxygen by nasal cannula. Head exam was generally normal. There was no scleral icterus or corneal arcus. Mucous membranes were moist. Neck was supple and without jugular venous distension, thyromegaly, or carotid bruits. Carotids were easily palpable bilaterally. There was no adenopathy. Classification: Class 4 Chest no sternocleidomastoid muscle contractions, no supraclavicular retractions, no intercostal retractions, no decreased air movement, no rhonchi, barrel chest, prolonged expiratory wheezing, decreased air movement, hyperinflation Heart no right ventricular heave, no distant heart sounds, no s3 gallop, (normal) jugular vein: jugular venous distention: by 0cm GI bowel sounds: hyperactive (borborygmi), bowel sounds: diminished or absent Extremities no cyanosis, no clubbing, no edema Neurologic alert and oriented 3 and the patient has no significant somnolence, no somnolence, no confusion, moaning all 4 extremities without any limitation Examination of the skin revealed no evidence of significant rashes, suspicious appearing nevi or other concerning lesions. - Labs CBC & Chem 7: 12/13/19 04:59 12/13/19 04:59 Labs: Abnormal Lab Results - Last 24 Hours (Table) 12/13/19 12/13/19 12/13/19 Range/Units 04:59 16:48 20:04 POC Glucose (mg/dL) 165 H 149 H (75-99) mg/dL IgG 554.0 L (700.0-1600.0) mg/dL 12/14/19 12/14/19 Range/Units 06:08 11:42 POC Glucose (mg/dL) 115 H 130 H (75-99) mg/dL IgG (700.0-1600.0) mg/dL Microbiology - Last 24 Hours (Table) 12/09/19 01:36 Blood Culture - Preliminary Blood No Growth after 120 hours Assessment and Plan Plan: 1 acute hypoxic respiratory failure currently improved and the patient is currently back on her normal oxygen flow which is at liters of oxygen per minute nasal cannula 2 acute on chronic kidney failure. The renal function is still impaired and the patient is requiring dialysis of the urine output is still low despite being on Lasix. The urine output is being monitored. The patient will not have dialysis today I will monitor the creatinine urine output 3 acute hyperkalemia secondary to above, improved, and we can to follow that the patient was taking Bactrim on outpatient basis was essentially contributed to hyperkalemia. Potassium level is normalized. 4 severe COPD with chronic hypoxic and hypercapnic respiratory failure patient wears for a half liters of oxygen on a regular basis, and she is maintained on a combination of Primacor, Perforomist, Yupelri, and albuterol rescue inhaler on an as-needed basis 5. Secondary pulmonary hypertension with a preserved LV function and ejection fraction of 55% 6. Chronic lymphoid leukemia, with chronic lymphocytosis and chronic anemia with thrombocytopenia 7 History of hypogammaglobulinemia and she is on supplements 8. essential hypertension 9 coronary arteriosclerosis 10. 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 11 hyperuricemia 12 troponin leak 13 UTI secondary to Enterobacter. The patient is currently on ciprofloxacin. Plan Wean the FiO2 , currently on 4 L of oxygen by nasal cannula Continue oral ciprofloxacin 500 mg by mouth daily Monitor hematologic profile. The white cell count is improved and the platelet remains low Monitor urine output and the patient on IV Lasix 60 mg IV push every 12 hours Nephrology is on the case in regards to any need for renal replacement therapy the patient will be receiving another session of hemodialysis today The patient was transferred out of the intensive care unit yesterday. She is currently on a medical surgical floor with telemetry. We'll continue to follow. Is not clear to me if the patient is going to need long-term replacement therapy. We'll monitor this patient's case and outcome along with a line closer.
--- NOTE | 2019-12-14 14:27 | PN ---
PROGRESS NOTE Patient is seen for followup for acute kidney injury. She currently remains hemodialysis dependent. Overall, patient states she is feeling better. She has been on hemodialysis since December 08 mostly for oliguria and hyperkalemia. The patient is scheduled for hemodialysis today. PHYSICAL EXAMINATION: On examination, blood pressure was 110/56, heart rate 82 per minute she is afebrile. Examination of the heart S1, S2. Examination of lungs, decreased breath sounds at the bases. Abdomen is soft, obese. Exam of lower extremities shows edema 2+ bilaterally. [employer] exam grossly intact. Patient moving all four extremities. LABS: Not available from today. Yesterday, potassium was 3.8, serum creatinine 3.35, hemoglobin 7.3. ASSESSMENT: 1. Acute kidney injury, nonoliguric, currently with indwelling Boggs catheter but hemodialysis dependent, scheduled for hemodialysis today. We will hold off on dialysis tomorrow. 2. Chronic kidney disease, stage 3 secondary to nephrosclerosis. Baseline creatinine 1-1.5 mg/dL. 3. Hyperkalemia associated acute kidney injury, now improved post dialysis. 4. History of chronic lymphocytic leukemia. 5. Acute on chronic diastolic congestive heart failure with moderate to severe tricuspid regurg, severe pulmonary hypertension. 6. Possible tumor lysis, status post rasburicase. 7. Anemia of chronic disease, iron replete, maintained on Aranesp. PLAN: Hemodialysis today. Continue with the IV Lasix as well. Maintain midodrine for systolic blood pressure less than 115 mmHg. MMODL / IJN: [id number] /
[2019-12-14 17:12] LABS: Glucose,Whole Blood 144 mg/dL (75-99)
[2019-12-14] MEDS: CYANOCOBALAMIN 500 MCG TAB PO SCH (17:59)
[2019-12-14 19:59] LABS: Glucose,Whole Blood 184 mg/dL (75-99)
[2019-12-14] MEDS ORDERED: polyethylene glycoL 3350 17 GM POWD.PACK PO PRN (20:41)
[2019-12-14] MEDS: LORATADINE 10 MG TAB PO PRN (20:59)
[2019-12-14] MEDS: SENNOSIDES 8.6 MG TAB PO SCH (21:00)
[2019-12-14] MEDS: ATORVASTATIN 40 MG TAB PO SCH (21:00)
[2019-12-14] MEDS: LORazepam 1 MG TAB PO PRN (21:03)
[2019-12-15 06:12] LABS: Glucose,Whole Blood 108 mg/dL (75-99)
[2019-12-15] MEDS: INSULIN ASPART (NovoLOG) 100 UNIT/ML VIAL SQ SCH ×4 (06:19→20:36)
[2019-12-15] MEDS: PANTOPRAZOLE 40 MG TABLET PO SCH (06:21)
[2019-12-15] MEDS: MIDODRINE 5 MG TAB PO SCH ×3 (06:21→17:39)
[2019-12-15] MEDS: LEVOTHYROXINE 100 MCG TAB PO SCH (06:21)
[2019-12-15] MEDS ORDERED: LEVOTHYROXINE 50 MCG TAB PO SCH (06:30)
[2019-12-15 07:08] LABS: HCT 25.1 % (34.0-46.0); HGB 7.5 gm/dL (11.4-16.0); Hypochromasia Marked; MCH 32.5 pg (25.0-35.0); MCHC 29.7 g/dL (31.0-37.0); MCV 109.4 fL (80.0-100.0); Macrocytosis Marked; Mean Platelet Volume 8.7; RDW 14.3 % (11.5-15.5); WBC 17.8 k/uL (3.8-10.6)
[2019-12-15 07:15] LABS: Calcium 8.1 mg/dL (8.4-10.2); Platelet Count 63 k/uL (150-450)
[2019-12-15] MEDS: IPRATROPIUM-ALBUTEROL 3 ML NEB INHALATION SCH ×4 (07:30→20:30)
[2019-12-15] MEDS: BUDESONIDE 0.5 MG/2 ML NEBU INHALATION SCH ×2 (07:30→20:30)
[2019-12-15] MEDS: EZETIMIBE 10 MG TAB PO SCH (09:38)
[2019-12-15] MEDS: METOPROLOL TARTRATE 25 MG TAB PO SCH ×2 (09:38→20:36)
[2019-12-15] MEDS: FUROSEMIDE 10 MG/ML 10 ML VIAL IV SCH ×2 (09:38→20:36)
[2019-12-15] MEDS: CIPROFLOXACIN HCL 500 MG TAB PO SCH (09:38)
[2019-12-15] MEDS: ESCITALOPRAM 10 MG TAB PO SCH (09:38)
[2019-12-15] MEDS: ASPIRIN 81 MG PO SCH (09:38)
[2019-12-15] MEDS: SENNOSIDES 8.6 MG TAB PO SCH ×2 (09:38→20:36)
--- NOTE | 2019-12-15 10:05 | P.PN ---
Subjective 79-year-old the pleasant female came in with the worsening shortness of breath. Patient is found to have worsening renal function it has been progressively worsening patient is found to have elevated potassium of 8.6. Patient was treated with multiple doses of IV calcium gluconate, Lasix, insulin with D50 in spite of which potassium didn't respond very well because of which patient had emergent dialysis. Patient does make urine. Patient was volume overloaded because of her decreased urine output. Patient the appears to have chronic kidney disease stage IV above. Patient had elevation in serum creatinine for her his baseline. There is no evidence of infection at this time patient denied any dysuria patient denied any cough fever chills. As per the nephrology patient may have some acute blood necrosis. Patient is definitely bit volume overloaded BNP is elevated at this volume overload is probably secondary to renal failure. Although patient may have some chronic diastolic dysfunction. Cardiology evaluate the patient as well. Echocardiogram is being obtained. 12/10/2019 Patient had significant improvement in respiratory status patient is presently on the around 30 L of oxygen. Saturating well. Patient looks better serum potassium improved. Patient did undergo hemodialysis today as well. Patient urine cultures are positive for gram-negative bacilli patient is on Rocephin for urinary tract infection. 12/11/2019 Patient remains on for 4 L of oxygen patient did undergo hemodialysis today removed about 2 L today patient had about 1 L of for fluid removed via hemodialysis yesterday. still has urine output but the low, patient's symptoms are showing Enterobacter cloaca. Patient's and hematocrit will be switched to ciprofloxacin 12/12/2019 Is presently and 80 to salons and feeling better. Patient is not undergoing hemodialysis today chest x-ray is still showing some bilateral pleural effusions and pulmonary venous congestion patient [place] [id number] 12/13/2019 She is presently on 6 L of pulse and will be transferred to ICU patient is receiving hemodialysis today 12/14/2019 Patient is presently on liters of oxygen and patient does use for his of oxygen at home, patient will undergo hemodialysis today. Physical diarrhea patient evaluation possibility of discharge on Monday12/15/2019 Patient remains on 4 L of oxygen patient did undergo dialysis yesterday patient will be started on dialysis tomorrow urinating well as per nephrology patient will be started on Monday schedule of hemodialysis Constitutional: Denied any fatigue denied any fever. Cardio vascular: denied any chest pain, palpitations Gastrointestinal denied any nausea vomiting Pulmonary: Denied any shortness of breath cough Neurologic denied any new focal deficits All inpatient medications were reviewed and appropriate changes in these medications as dictated in the interval history and assessment and plan. Objective - Vital Signs Vital signs: Vital Signs Temp 98.8 F 12/15/19 04:00 Pulse 80 12/15/19 07:45 Resp 18 12/15/19 04:00 BP 123/55 12/15/19 04:00 Pulse Ox 89 L 12/15/19 04:00 Intake & Output 12/14/19 12/15/19 12/15/19 18:59 06:59 18:59 Intake Total 120 10 120 Output Total 700 Balance 120 -690 120 Weight 84.4 kg Intake: IV 10 .9NS 10 Oral 120 120 Output: Urine 700 Other: Voiding Method Indwelling Catheter Indwelling Catheter # Voids 1 1 1 # Bowel Movements 0 - Exam PHYSICAL EXAMINATION: GENERAL: The patient is alert and oriented x3, not in any acute distress. Well developed, well nourished. HEENT: Pupils are round and equally reacting to light. EOMI. No scleral icterus. No conjunctival pallor. Normocephalic, atraumatic. No pharyngeal erythema. No thyromegaly. CARDIOVASCULAR: S1 and S2 present. No murmurs, rubs, or gallops. PULMONARY: Chest is clear to auscultation, no wheezing or crackles. ABDOMEN: Soft, nontender, nondistended, normoactive bowel sounds. No palpable organomegaly. MUSCULOSKELETAL: No joint swelling or deformity. EXTREMITIES: No cyanosis, clubbing, or pedal edema. NEUROLOGICAL: Gross neurological examination did not reveal any focal deficits. SKIN: No rashes. - Labs CBC & Chem 7: 12/15/19 06:35 12/15/19 06:35 Labs: Abnormal Lab Results - Last 24 Hours (Table) 12/14/19 12/14/19 12/14/19 Range/Units 11:42 17:06 19:58 WBC (3.8-10.6) k/uL RBC (3.80-5.40) m/uL Hgb (11.4-16.0) gm/dL Hct (34.0-46.0) % MCV (80.0-100.0) fL MCHC (31.0-37.0) g/dL Plt Count (150-450) k/uL Macrocytosis BUN (7-17) mg/dL Creatinine (0.52-1.04) mg/dL Glucose (74-99) mg/dL POC Glucose (mg/dL) 130 H 144 H 184 H (75-99) mg/dL Calcium (8.4-10.2) mg/dL 12/15/19 12/15/19 12/15/19 Range/Units 06:10 06:35 06:35 WBC 17.8 H (3.8-10.6) k/uL RBC 2.30 L (3.80-5.40) m/uL Hgb 7.5 L (11.4-16.0) gm/dL Hct 25.1 L (34.0-46.0) % MCV 109.4 H (80.0-100.0) fL MCHC 29.7 L (31.0-37.0) g/dL Plt Count 63 L D (150-450) k/uL Macrocytosis Marked A BUN 29 H (7-17) mg/dL Creatinine 3.31 H (0.52-1.04) mg/dL Glucose 116 H (74-99) mg/dL POC Glucose (mg/dL) 108 H (75-99) mg/dL Calcium 8.1 L (8.4-10.2) mg/dL Microbiology - Last 24 Hours (Table) 12/09/19 01:36 Blood Culture - Final Blood No Growth after 144 hours Assessment and Plan Plan: -Acute hypoxic respiratory failure requiring BiPAP on admission presently on 4 L of oxygen Secondary to fluid overload from kidney failure and fluid retention.hemodialysis tomorrow. -Possible acute exacerbation of her chronic diastolic dysfunction -Acute on chronic renal failure stage V -Hyperkalemia: Secondary to acute renal failure, chronic kidney disease stage V. 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 Presently doesn't appear to be in acute exacerbation at this time -DVT prophylaxis with subcutaneous heparin
[2019-12-15 11:59] LABS: Glucose,Whole Blood 166 mg/dL (75-99)
--- NOTE | 2019-12-15 12:03 | P.PN ---
Subjective Progress Note Date: 12/15/19 79-year-old female patient well-known to me. Patient has known history of advanced COPD, chronic hypoxic respiratory failure maintained on oxygen between 4 and 5 L per minute nasal cannula, severe obstructive sleep apnea with declined CPAP therapy over the years, history of coronary artery disease, history of CLL and severe pulmonary hypertension with right-sided heart failure. I have known this patient for many years and I'm taking care of her. She has been having progressive decline in her overall condition and health status. She has also component of chronic kidney disease. She came into the emergency department after having some worsening shortness of breath. She tried to fight it off at home. Nevertheless, ultimately condition got worse and she came into the hospital where she was utilized to have a acute on top of chronic kidney failure with a creatinine up to 5.7 and a potassium level of 8.6. The patient received the combination of treatment for hyperkalemia including IV calcium, IV bicarbonate and IV Lasix in addition to nebulized albuterol nebulized treatments and IV insulin with D50 sugar. Potassium level gradually came down to 7.2 from a baseline of 8.6. Nevertheless it was not enough and the patient also has a component of fluid overload and the urine output was in the order of 20 mL an hour. At that point I decided to proceed with dialysis in regards to hyper lipidemia. The patient uses only 200 mL of urine output following an 80 mg IV Lasix push and dialysis catheter was inserted by vascular surgery and the patient will be proceeding with dialysis. Noted the proBNP level is elevated and the chest x-ray is consistent with CHF and fluid overload. The patient is currently on a BiPAP at a pressure of 12/6 cm of water with an FiO2 of 50%. She is arousable pH is communicating. No significant cardiac arrhythmias related to hyperkalemia. Her basal lactic acid level was at 3.7 and came up to 1.7. On today's evaluation of 12/10/2019, the patient is awake and alert and she is communicating pH was taken off the BiPAP this morning and the patient was placed on 15 L high flow oxygen. The patient is doing well. She is communicating pH is alert and oriented 3. As mentioned earlier, the patient was started on hemodialysis and she was infiltrated with removal of 1 L of fluid. Chest x-ray still showing some increased volume yet improved compared to earlier chest x- rays. No fever. No chills. No chest pain. There is adequate urine output in the order of 30-40 mL an hour and the patient is also receiving IV Lasix at a dose of 60 mg every 12 hours. The patient's creatinine is at 3.9 with a BUN of 80. Potassium level has also improved is down to 5.3. Note that overnight, the patient slept on BiPAP at a pressure of 12/6 cm of water. She is moving all 4 extremities. Lactic acid level has also improved. The urine is showing gram-negative bacillus and the patient is currently covered with IV Rocephin. On 12/11/2019, patient is being seen for a follow-up. Doing well. FiO2 has been weaned down to 12 L and his saturations around 91%. The patient did not wear her BiPAP overnight. She remains in atrial fibrillation. Rate is slightly tachycardic. The patient's urine output is still low and the patient is going to undergo a hemodialysis with ultrafiltration today. The patient's last echo was at 34 consistent with her CLL. Creatinine is at 2.5 with a BUN of 43. The fluid balance over the past 24 hours is -2.4 L. The chest x-ray shows improvement in the aeration although there is some limited bilateral lower lobe pleural effusion and infiltrates still present. Urine culture is still pending although it's consistent with UTI with gram-negative bacillus. The patient is going to have a third session of hemodialysis today. The patient is also on Lasix 60 mg IV push every 12 hours. Renal function will be monitored very closely. Urine output in the order of 30-35 mL an hour. No hydronephrosis on her ultrasound of the kidneys. No cough. No sputum production. No chest tightness. No wheezing. 12/12/2019, the patient is doing well. Oxygenation is improved and the patient is currently down to 8 L of oxygen by nasal cannula. Urine output remains low and order of 10 mL an hour and the patient is on IV Lasix. Note that the patient underwent dialysis yesterday which he tolerated it very well and she had a total of 2 L of ultrafiltration. BP is stable for now. Chest x-ray is showing small bilateral pleural effusions in the lung bases in addition to pulmonary vascular congestion. She is on no pressors. She is afebrile. Urine culture bag turner to be positive for Enterobacter and the patient was taken off the Rocephin and she was placed on ciprofloxacin. The patient's white cell count is 23.7 which is lower. The hemogram is stable at 7.8. Platelet count has been low at 32. On today's evaluation she has a BUN of 28 with a creatinine of 2.4. The patient will not have hemodialysis today. The patient will be trialed on IV Lasix and the urine output was monitored very closely. No fever. No chills no altered mentation and no other significant events overnight. 12/13/2019 and see the patient for a follow-up. She is doing well. No specific complaints. She does not have dialysis yesterday. He dialysis session will be done today. She remains on 8 L about 2 by nasal cannula that was weaned down to 6 L. Chest exit still showing pulmonary vessel congestion and some small left-sided pleural effusion. Her cardiac rhythm is sinus. No signs of any COPD exacerbation. She remains on Lasix 60 mg IV push every 12 hours. Her urine output remains low and we are concerned that she may end up requiring long-term dialysis. As mentioned earlier, she was found to have Enterobacter in her urine culture and the patient is currently on ciprofloxacin 500 mg by mouth on a daily basis. Outpatient medications have been ordered resume. No fever. No chills. No altered mentation. She is being worked up for a physical therapy and she is doing some limited and ventilation on today's evaluation. On 12/14/2019, the patient is on 4 L of oxygen by nasal cannula. The patient underwent hemodialysis yesterday. There was further improvement in the volume status and the patient is currently on 4 L. No respiratory distress. We're monitoring the urine output. She has a Boggs catheter in place. Urine output remains low. I'm not sure if the patient is going to need long-term renal r eplacement therapy. The patient remains on oral Cipro floxacillin regarding her Enterobacter UTI. The patient is also on Lasix 60 mg IV push every 12 hours. The patient is on DuoNeb nebulized treatments around the clock. No altered mentation. She is ambulating. She is able to sit up on a recliner. She is able to tolerate her diet. No other respirations for now. On 12/15/2019, the patient is doing well. She is on 4 L of oxygen by nasal cannula. I noted some improvement in urine output and the patient's creatinine is stable. The patient is producing 700 mL of urine output yesterday and the Boggs cath is in place. As for the creatinine, it is stable at 3.3 with a BUN of 29. She has no specific complaints for now. Nephrology on the case. No fever. No chills. No chest pain. No other significant events otherwise for yesterday. The patient remains on DuoNeb about treatments around the clock. The patient remains on oral ciprofloxacin. Objective - Vital Signs Vital signs: Vital Signs Temp 97.9 F 12/15/19 08:00 Pulse 83 12/15/19 11:00 Resp 19 12/15/19 08:00 BP 107/55 12/15/19 08:00 Pulse Ox 90 L 12/15/19 08:00 Intake & Output 12/14/19 12/15/19 12/15/19 18:59 06:59 18:59 Intake Total 120 10 120 Output Total 700 Balance 120 -690 120 Weight 84.4 kg Intake: IV 10 .9NS 10 Oral 120 120 Output: Urine 700 Other: Voiding Method Indwelling Catheter Indwelling Catheter Indwelling Catheter # Voids 1 1 1 # Bowel Movements 0 - Exam General Appearance no diaphoresis, no respiratory distress, speech not interrupted by breaths, no dyspnea, no pallor, not cachectic, well nourished, appears well, morbid obesity. The patient is awake and alert. And oriented. The patient is currently on 4 L of oxygen by nasal cannula. Head exam was generally normal. There was no scleral icterus or corneal arcus. Mucous membranes were moist. Neck was supple and without jugular venous distension, thyromegaly, or carotid bruits. Carotids were easily palpable bilaterally. There was no adenopathy. Classification: Class 4 Chest no sternocleidomastoid muscle contractions, no supraclavicular re tractions, no intercostal retractions, no decreased air movement, no rhonchi, barrel chest, prolonged expiratory wheezing, decreased air movement, hyperinflation Heart no right ventricular heave, no distant heart sounds, no s3 gallop, (normal) jugular vein: jugular venous distention: by 0cm GI bowel sounds: hyperactive (borborygmi), bowel sounds: diminished or absent Extremities no cyanosis, no clubbing, no edema Neurologic alert and oriented 3 and the patient has no significant somnolence, no somnolence, no confusion, moaning all 4 extremities without any limitation Examination of the skin revealed no evidence of significant rashes, suspicious appearing nevi or other concerning lesions. - Labs CBC & Chem 7: 12/15/19 06:35 12/15/19 06:35 Labs: Abnormal Lab Results - Last 24 Hours (Table) 12/14/19 12/14/19 12/15/19 Range/Units 17:06 19:58 06:10 WBC (3.8-10.6) k/uL RBC (3.80-5.40) m/uL Hgb (11.4-16.0) gm/dL Hct (34.0-46.0) % MCV (80.0-100.0) fL MCHC (31.0-37.0) g/dL Plt Count (150-450) k/uL Macrocytosis BUN (7-17) mg/dL Creatinine (0.52-1.04) mg/dL Glucose (74-99) mg/dL POC Glucose (mg/dL) 144 H 184 H 108 H (75-99) mg/dL Calcium (8.4-10.2) mg/dL 12/15/19 12/15/19 12/15/19 Range/Units 06:35 06:35 11:44 WBC 17.8 H (3.8-10.6) k/uL RBC 2.30 L (3.80-5.40) m/uL Hgb 7.5 L (11.4-16.0) gm/dL Hct 25.1 L (34.0-46.0) % MCV 109.4 H (80.0-100.0) fL MCHC 29.7 L (31.0-37.0) g/dL Plt Count 63 L D (150-450) k/uL Macrocytosis Marked A BUN 29 H (7-17) mg/dL Creatinine 3.31 H (0.52-1.04) mg/dL Glucose 116 H (74-99) mg/dL POC Glucose (mg/dL) 166 H (75-99) mg/dL Calcium 8.1 L (8.4-10.2) mg/dL Microbiology - Last 24 Hours (Table) 12/09/19 01:36 Blood Culture - Final Blood No Growth after 144 hours Assessment and Plan Plan: 1 acute hypoxic respiratory failure currently improved and the patient is currently back on her normal oxygen flow which is at 4 liters of oxygen per minute nasal cannula, the patient denies having any signs of any respiratory distress 2 acute on chronic kidney failure. The renal function is stable and the patient is showing some improvement in urine output. The patient has required renal replacement therapy and currently she is off dialysis. 3 acute hyperkalemia secondary to above, improved, and we can to follow that the patient was taking Bactrim on outpatient basis was essentially contributed to hyperkalemia. Potassium level is normalized. 4 severe COPD with chronic hypoxic and hypercapnic respiratory failure patient wears for a half liters of oxygen on a regular basis, and she is maintained on a combination of Primacor, Perforomist, Yupelri, and albuterol rescue inhaler on an as-needed basis 5. Secondary pulmonary hypertension with a preserved LV function and ejection fraction of 55% 6. Chronic lymphoid leukemia, with chronic lymphocytosis and chronic anemia with thrombocytopenia 7 History of hypogammaglobulinemia and she is on supplements 8. essential hypertension 9 coronary arteriosclerosis 10. 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 11 hyperuricemia 12 troponin leak 13 UTI secondary to Enterobacter. The patient is currently on ciprofloxacin. Plan Wean the FiO2 , currently on 4 L of oxygen by nasal cannula Continue oral ciprofloxacin 500 mg by mouth daily Monitor hematologic profile. The white cell count is improved and the platelet is also improving. Monitor urine output and the patient on IV Lasix 60 mg IV push every 12 hours, the patient is showing improvement in urine output and the patient continues to have some swelling in lower extremities. Nevertheless the creatinine is stable. Nephrology is on the case in regards to any need for renal replacement therapy. It seems that the patient renal function is slowly recovering. We'll continue to follow. Is not clear to me if the patient is going to need long-term replacement therapy. We'll monitor this patient's case and outcome along with a financial operations clerk.
--- NOTE | 2019-12-15 14:28 | PN ---
PROGRESS NOTE Patient is seen for followup for acute kidney injury, currently hemodialysis dependent. Patient tolerated her dialysis well yesterday. The patient will be dialyzed tomorrow. She has an indwelling Boggs catheter. She has had good urine output. 24 hour urine output noted at about 700 mL. I am not sure this is accurate since there is a lot of urine present in her Boggs bag at this point. EXAMINATION: Blood pressure was 129/67, heart rate 81 per minute, she is afebrile. Examination of the heart S1, S2. Examination of the lungs, decreased breath sounds at bases. Abdomen is soft. Morbidly obese. Examination of lower extremities shows edema 2+ bilaterally MAT WORKER exam grossly intact. LAB: Show sodium 137, potassium 4.0, chloride 102, BUN 29, creatinine 3.31, hemoglobin 7.5 g/dL. ASSESSMENT: 1. Acute kidney injury, acute tubular necrosis, currently hemodialysis dependent, nonoliguric with indwelling Boggs catheter. Patient remains volume overloaded. Creatinine remains elevated. We will plan for dialysis again tomorrow. 2. Chronic kidney disease stage 3 secondary to nephrosclerosis. Baseline creatinine 1- 1.5 mg/dL. 3. Hyperkalemia associated with acute kidney injury, now improved. 4. History of chronic lymphocytic leukemia. 5. Acute on top of chronic diastolic heart failure with moderate to severe tricuspid regurgitation and severe pulmonary hypertension. 6. Anemia of chronic disease, iron replete, maintained on Aranesp. 7. Volume overload, maintained on Lasix with fair urine output and also maintained on hemodialysis. 8. Urinary tract infection. Urine culture grew Enterobacter cloacae maintained on Cipro currently. PLAN: Hemodialysis in a.m. Continue to monitor urine output and avoid nephrotoxic agents. Continue with IV Lasix as well for now. MMODL / IJN: [id number] /
[2019-12-15 17:06] LABS: Glucose,Whole Blood 73 mg/dL (75-99)
[2019-12-15] MEDS: CYANOCOBALAMIN 500 MCG TAB PO SCH (17:32)
[2019-12-15 19:59] LABS: Glucose,Whole Blood 160 mg/dL (75-99)
[2019-12-15] MEDS: ATORVASTATIN 40 MG TAB PO SCH (20:36)
[2019-12-15] MEDS: LORazepam 1 MG TAB PO PRN (23:19)
[2019-12-16 06:14] LABS: Glucose,Whole Blood 118 mg/dL (75-99)
[2019-12-16] MEDS: INSULIN ASPART (NovoLOG) 100 UNIT/ML VIAL SQ SCH ×4 (06:18→22:03)
[2019-12-16] MEDS: PANTOPRAZOLE 40 MG TABLET PO SCH (06:21)
[2019-12-16] MEDS: LEVOTHYROXINE 100 MCG TAB PO SCH (06:21)
[2019-12-16] MEDS: MIDODRINE 5 MG TAB PO SCH ×3 (06:24→18:10)
[2019-12-16 07:29] LABS: Calcium 8.2 mg/dL (8.4-10.2); Potassium 3.9 mmol/L (3.5-5.1)
[2019-12-16] MEDS: ASPIRIN 81 MG PO SCH (08:25)
[2019-12-16] MEDS: CIPROFLOXACIN HCL 500 MG TAB PO SCH (08:25)
[2019-12-16] MEDS: ESCITALOPRAM 10 MG TAB PO SCH (08:25)
[2019-12-16] MEDS: FUROSEMIDE 10 MG/ML 10 ML VIAL IV SCH ×2 (08:27→22:02)
[2019-12-16] MEDS: SENNOSIDES 8.6 MG TAB PO SCH ×2 (08:34→22:02)
[2019-12-16] MEDS: EZETIMIBE 10 MG TAB PO SCH (08:34)
[2019-12-16] MEDS: METOPROLOL TARTRATE 25 MG TAB PO SCH ×2 (08:34→22:02)
[2019-12-16] MEDS: IPRATROPIUM-ALBUTEROL 3 ML NEB INHALATION SCH ×3 (09:25→20:02)
[2019-12-16] MEDS: BUDESONIDE 0.5 MG/2 ML NEBU INHALATION SCH ×2 (09:25→20:02)
[2019-12-16] MEDS ORDERED: HEPARIN SODIUM,PORCINE 5,000 UNIT/ML 1 ML VIAL ONE (10:00)
--- NOTE | 2019-12-16 10:53 | P.PN ---
Subjective 79-year-old the pleasant female came in with the worsening shortness of breath. Patient is found to have worsening renal function it has been progressively worsening patient is found to have elevated potassium of 8.6. Patient was treated with multiple doses of IV calcium gluconate, Lasix, insulin with D50 in spite of which potassium didn't respond very well because of which patient had emergent dialysis. Patient does make urine. Patient was volume overloaded because of her decreased urine output. Patient the appears to have chronic kidney disease stage IV above. Patient had elevation in serum creatinine for her his baseline. There is no evidence of infection at this time patient denied any dysuria patient denied any cough fever chills. As per the nephrology patient may have some acute blood necrosis. Patient is definitely bit volume overloaded BNP is elevated at this volume overload is probably secondary to renal failure. Although patient may have some chronic diastolic dysfunction. Cardiology evaluate the patient as well. Echocardiogram is being obtained. 12/10/2019 Patient had significant improvement in respiratory status patient is presently on the around 30 L of oxygen. Saturating well. Patient looks better serum potassium improved. Patient did undergo hemodialysis today as well. Patient urine cultures are positive for gram-negative bacilli patient is on Rocephin for urinary tract infection. 12/11/2019 Patient remains on for 4 L of oxygen patient did undergo hemodialysis today removed about 2 L today patient had about 1 L of for fluid removed via hemodialysis yesterday. still has urine output but the low, patient's symptoms are showing Enterobacter cloaca. Patient's and hematocrit will be switched to ciprofloxacin 12/12/2019 Is presently and 80 to salons and feeling better. Patient is not undergoing hemodialysis today chest x-ray is still showing some bilateral pleural effusions and pulmonary venous congestion patient [place] [id number] 12/13/2019 She is presently on 6 L of pulse and will be transferred to ICU patient is receiving hemodialysis today 12/14/2019 Patient is presently on liters of oxygen and patient does use for his of oxygen at home, patient will undergo hemodialysis today. Physical diarrhea patient evaluation possibility of discharge on Monday12/15/2019 Patient remains on 4 L of oxygen patient did undergo dialysis yesterday patient will be started on dialysis tomorrow urinating well as per nephrology patient will be started on Monday schedule of hemodialysis 12/16/2019 Patient will undergo dialysis today nephrology didn't cleared her for discharge yet. Constitutional: Denied any fatigue denied any fever. Cardio vascular: denied any chest pain, palpitations Gastrointestinal denied any nausea vomiting Pulmonary: Denied any shortness of breath cough Neurologic denied any new focal deficits All inpatient medications were reviewed and appropriate changes in these medications as dictated in the interval history and assessment and plan. Objective - Vital Signs Vital signs: Vital Signs Temp 98.8 F 12/16/19 07:45 Pulse 83 12/16/19 07:45 Resp 20 12/16/19 07:45 BP 102/53 12/16/19 07:45 Pulse Ox 96 12/16/19 07:45 Intake & Output 12/15/19 12/16/19 12/16/19 18:59 06:59 18:59 Intake Total 360 230 Output Total 450 800 Balance -90 -800 230 Weight 84.6 kg Intake: Oral 360 230 Output: Urine 450 800 Other: Voiding Method Indwelling Catheter Indwelling Catheter # Voids 0 1 - Exam PHYSICAL EXAMINATION: GENERAL: The patient is alert and oriented x3, not in any acute distress. Well developed, well nourished. HEENT: Pupils are round and equally reacting to light. EOMI. No scleral icterus. No conjunctival pallor. Normocephalic, atraumatic. No pharyngeal erythema. No thyromegaly. CARDIOVASCULAR: S1 and S2 present. No murmurs, rubs, or gallops. PULMONARY: Chest is clear to auscultation, no wheezing or crackles. ABDOMEN: Soft, nontender, nondistended, normoactive bowel sounds. No palpable organomegaly. MUSCULOSKELETAL: No joint swelling or deformity. EXTREMITIES: No cyanosis, clubbing, or pedal edema. NEUROLOGICAL: Gross neurological examination did not reveal any focal deficits. SKIN: No rashes. - Labs CBC & Chem 7: 12/15/19 06:35 12/16/19 06:13 Labs: Abnormal Lab Results - Last 24 Hours (Table) 12/15/19 12/15/19 12/15/19 Range/Units 11:44 16:57 19:58 Sodium (137-145) mmol/L BUN (7-17) mg/dL Creatinine (0.52-1.04) mg/dL Glucose (74-99) mg/dL POC Glucose (mg/dL) 166 H 73 L 160 H (75-99) mg/dL Calcium (8.4-10.2) mg/dL 12/16/19 12/16/19 Range/Units 06:12 06:13 Sodium 136 L (137-145) mmol/L BUN 33 H (7-17) mg/dL Creatinine 3.60 H (0.52-1.04) mg/dL Glucose 112 H (74-99) mg/dL POC Glucose (mg/dL) 118 H (75-99) mg/dL Calcium 8.2 L (8.4-10.2) mg/dL Assessment and Plan Plan: -Acute hypoxic respiratory failure requiring BiPAP on admission presently on 4 L of oxygen Secondary to fluid overload from kidney failure and fluid retention.hemodialysis tomorrow. -Possible acute exacerbation of her chronic diastolic dysfunction -Acute on chronic renal failure stage V -Hyperkalemia: Secondary to acute renal failure, chronic kidney disease stage V. 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 Presently doesn't appear to be in acute exacerbation at this time -DVT prophylaxis with subcutaneous heparin
[2019-12-16] MEDS ORDERED: ONDANSETRON 4 MG/2 ML VIAL IVP STA (11:04)
--- NOTE | 2019-12-16 11:31 | PN ---
PROGRESS NOTE Patient is seen for followup for acute kidney injury. She remains hemodialysis dependent. This morning her catheter was not working well and therefore Dr. Cross will be consulted for placement of IJ PermCath. Patient has fair urine output. However, serum creatinine remains elevated and she also has significant edema. Creatinine today is 3.6 from 3.3 yesterday. PHYSICAL EXAMINATION: On examination today, blood pressure was 102/53, heart rate 83 per minute. she is afebrile. Examination of the heart S1, S2. Examination of the lungs, decreased breath sounds at the bases. Abdomen is soft, nontender. Examination of the lower extremities shows edema,. 2+ bilaterally. AUDIOVISUAL TECH exam grossly intact. LABS: Show sodium 136, potassium 3.9, BUN 33, creatinine 3.6. ASSESSMENT: 1. Acute kidney injury, ATN currently hemodialysis dependent. Patient is nonoliguric. She will continue with the hemodialysis for now. She remains volume overloaded with no improvement in renal function. 2. Malfunctioning catheter will switch to IJ PermCath and proceed with outpatient chair time placement. 3. Volume overload, currently improving. Continue with the IV Lasix. 4. Hyperkalemia associated with acute kidney injury, now improved. 5. Chronic kidney disease stage 3 secondary to nephrosclerosis. Baseline creatinine 1 to 1.5. 6. CHF acute on top of chronic mainly diastolic. 7. Moderate to severe tricuspid regurgitation and severe pulmonary hypertension. 8. Urinary tract infection with urine culture growing Enterobacter cloacae, maintained on Cipro. PLAN: Hemodialysis today and proceed with IJ PermCath placement and outpatient chair time placement as well. MMODL / IJN: [id number] /
[2019-12-16 12:07] LABS: Glucose,Whole Blood 122 mg/dL (75-99)
--- NOTE | 2019-12-16 14:25 | P.PN ---
Subjective Progress Note Date: 12/16/19 Principal diagnosis: Acute hypoxic rest or a failure currently improved 79-year-old female patient well-known to me. Patient has known history of advanced COPD, chronic hypoxic respiratory failure maintained on oxygen between 4 and 5 L per minute nasal cannula, severe obstructive sleep apnea with declined CPAP therapy over the years, history of coronary artery disease, history of CLL and severe pulmonary hypertension with right-sided heart failure. I have known this patient for many years and I'm taking care of her. She has been having progressive decline in her overall condition and health status. She has also component of chronic kidney disease. She came into the emergency department after having some worsening shortness of breath. She tried to fight it off at home. Nevertheless, ultimately condition got worse and she came into the hospital where she was utilized to have a acute on top of chronic kidney failure with a creatinine up to 5.7 and a potassium level of 8.6. The patient received the combination of treatment for hyperkalemia including IV calcium, IV bicarbonate and IV Lasix in addition to nebulized albuterol nebulized treatments and IV insulin with D50 sugar. Potassium level gradually came down to 7.2 from a baseline of 8.6. Nevertheless it was not enough and the patient also has a component of fluid overload and the urine output was in the order of 20 mL an hour. At that point I decided to proceed with dialysis in regards to hyperli pidemia. The patient uses only 200 mL of urine output following an 80 mg IV Lasix push and dialysis catheter was inserted by vascular surgery and the patient will be proceeding with dialysis. Noted the proBNP level is elevated and the chest x-ray is consistent with CHF and fluid overload. The patient is currently on a BiPAP at a pressure of 12/6 cm of water with an FiO2 of 50%. She is arousable pH is communicating. No significant cardiac arrhythmias related to hyperkalemia. Her basal lactic acid level was at 3.7 and came up to 1.7. On today's evaluation of 12/10/2019, the patient is awake and alert and she is communicating pH was taken off the BiPAP this morning and the patient was placed on 15 L high flow oxygen. The patient is doing well. She is communicating pH is alert and oriented 3. As mentioned earlier, the patient was started on hemodialysis and she was infiltrated with removal of 1 L of fluid. Chest x-ray still showing some increased volume yet improved compared to earlier chest x- rays. No fever. No chills. No chest pain. There is adequate urine output in the order of 30-40 mL an hour and the patient is also receiving IV Lasix at a dose of 60 mg every 12 hours. The patient's creatinine is at 3.9 with a BUN of 80. Potassium level has also improved is down to 5.3. Note that overnight, the patient slept on BiPAP at a pressure of 12/6 cm of water. She is moving all 4 extremities. Lactic acid level has also improved. The urine is showing gram-negative bacillus and the patient is currently covered with IV Rocephin. On 12/11/2019, patient is being seen for a follow-up. Doing well. FiO2 has been weaned down to 12 L and his saturations around 91%. The patient did not wear her BiPAP overnight. She remains in atrial fibrillation. Rate is slightly tachycardic. The patient's urine output is still low and the patient is going to undergo a hemodialysis with ultrafiltration today. The patient's last echo was at 34 consistent with her CLL. Creatinine is at 2.5 with a BUN of 43. The fluid balance over the past 24 hours is -2.4 L. The chest x-ray shows improvement in the aeration although there is some limited bilateral lower lobe pleural effusion and infiltrates still present. Urine culture is still pending although it's consistent with UTI with gram-negative bacillus. The patient is going to have a third session of hemodialysis today. The patient is also on Lasix 60 mg IV push every 12 hours. Renal function will be monitored very closely. Urine output in the order of 30-35 mL an hour. No hydronephrosis on her ultrasound of the kidneys. No cough. No sputum production. No chest tightness. No wheezing. 12/12/2019, the patient is doing well. Oxygenation is improved and the patient is currently down to 8 L of oxygen by nasal cannula. Urine output remains low and order of 10 mL an hour and the patient is on IV Lasix. Note that the patient underwent dialysis yesterday which he tolerated it very well and she had a total of 2 L of ultrafiltration. BP is stable for now. Chest x-ray is showing small bilateral pleural effusions in the lung bases in addition to pulmonary vascular congestion. She is on no pressors. She is afebrile. Urine culture outside energy sales representatives to be positive for Enterobacter and the patient was taken off the Rocephin and she was placed on ciprofloxacin. The patient's white cell count is 23.7 which is lower. The hemogram is stable at 7.8. Platelet count has been low at 32. On today's evaluation she has a BUN of 28 with a creatinine of 2.4. The patient will not have hemodialysis today. The patient will be trialed on IV Lasix and the urine output was monitored very closely. No fever. No chills no altered mentation and no other significant events overnight. 12/13/2019 and see the patient for a follow-up. She is doing well. No specific complaints. She does not have dialysis yesterday. He dialysis session will be done today. She remains on 8 L about 2 by nasal cannula that was weaned down to 6 L. Chest exit still showing pulmonary vessel congestion and some small left- sided pleural effusion. Her cardiac rhythm is sinus. No signs of any COPD exacerbation. She remains on Lasix 60 mg IV push every 12 hours. Her urine output remains low and we are concerned that she may end up requiring long-term dialysis. As mentioned earlier, she was found to have Enterobacter in her urine culture and the patient is currently on ciprofloxacin 500 mg by mouth on a daily basis. Outpatient medications have been ordered resume. No fever. No chills. No altered mentation. She is being worked up for a physical therapy and she is doing some limited and ventilation on today's evaluation. On 12/14/2019, the patient is on 4 L of oxygen by nasal cannula. The patient underwent hemodialysis yesterday. There was further improvement in the volume status and the patient is currently on 4 L. No respiratory distress. We're monitoring the urine output. She has a Boggs catheter in place. Urine output remains low. I'm not sure if the patient is going to need long-term renal rep lacement therapy. The patient remains on oral Cipro floxacillin regarding her Enterobacter UTI. The patient is also on Lasix 60 mg IV push every 12 hours. The patient is on DuoNeb nebulized treatments around the clock. No altered mentation. She is ambulating. She is able to sit up on a recliner. She is able to tolerate her diet. No other respirations for now. On 12/15/2019, the patient is doing well. She is on 4 L of oxygen by nasal cannula. I noted some improvement in urine output and the patient's creatinine is stable. The patient is producing 700 mL of urine output yesterday and the Boggs cath is in place. As for the creatinine, it is stable at 3.3 with a BUN of 29. She has no specific complaints for now. Nephrology on the case. No fever. No chills. No chest pain. No other significant events otherwise for yesterday. The patient remains on DuoNeb about treatments around the clock. The patient remains on oral ciprofloxacin. On 12/16/2019 patient seen in follow-up on selective care unit, she is awake and alert, oriented 3, her lung sounds are clear, she denies any respiratory distress, she is currently on 4 L which is what she wears normally at home. Her pulse ox is 97%, hemodynamically stable, she's had no fever or chills, ration is having another hemodialysis treatment today. Renal profile is relatively stable, B1 is 33 creatinine is 3.60, electrolytes are unremarkable. Patient is on IV Lasix at 60 mg every 12 hours, nephrology is following, vital signs have been stable. Patient is producing urine, she made 1.2 L in the urine output in the last 24 hours. Lower extremity edema is improving, no complaints of chest pain, no hemoptysis, Objective - Vital Signs Vital signs: Vital Signs Temp 98.8 F 12/16/19 12:06 Pulse 62 12/16/19 12:06 Resp 18 12/16/19 12:06 BP 102/54 12/16/19 12:06 Pulse Ox 96 12/16/19 12:00 Intake & Output 12/15/19 12/16/19 12/16/19 18:59 06:59 18:59 Intake Total 360 230 Output Total 450 800 675 Balance -90 -800 -445 Weight 84.6 kg Intake: Oral 360 230 Output: Urine 450 800 Hemodialysis 675 Other: Voiding Method Indwelling Catheter Indwelling Catheter Indwelling Catheter # Voids 0 1 - Exam GENERAL EXAM: Alert, very pleasant, 79-year-old white female, on 4 L of oxygen the pulse ox 96% comfortable in no apparent distress. HEAD: Normocephalic/atraumatic. EYES: Normal reaction of pupils, equal size. Conjunctiva pink, sclera white. NOSE: Clear with pink turbinates. THROAT: No erythema or exudates. NECK: No masses, no JVD, no thyroid enlargement, no adenopathy. CHEST: No chest wall deformity. Symmetrical expansion. LUNGS: Equal air entry with no crackles, wheeze, rhonchi or dullness. CVS: Regular rate and rhythm, normal S1 and S2, no gallops, no murmurs, no rubs ABDOMEN: Soft, nontender. No hepatosplenomegaly, normal bowel sounds, no guarding or rigidity. EXTREMITIES: No clubbing, 1+ lower extremity edema, no cyanosis, 2+ pulses and upper and lower extremities. Patient has a right groin temporary hemodialysis catheter and patient is currently having hemodialysis treatment on MUSCULOSKELETAL: Muscle strength and tone normal. SPINE: No scoliosis or deformity SKIN: No rashes CENTRAL NERVOUS SYSTEM: Alert and oriented -3. No focal deficits, tone is normal in all 4 extremities. PSYCHIATRIC: Alert and oriented -3. Appropriate affect. Intact judgment and insight. - Labs CBC & Chem 7: 12/15/19 06:35 12/16/19 06:13 Labs: Abnormal Lab Results - Last 24 Hours (Table) 12/15/19 12/15/19 12/16/19 Range/Units 16:57 19:58 06:12 Sodium (137-145) mmol/L BUN (7-17) mg/dL Creatinine (0.52-1.04) mg/dL Glucose (74-99) mg/dL POC Glucose (mg/dL) 73 L 160 H 118 H (75-99) mg/dL Calcium (8.4-10.2) mg/dL 12/16/19 12/16/19 Range/Units 06:13 11:59 Sodium 136 L (137-145) mmol/L BUN 33 H (7-17) mg/dL Creatinine 3.60 H (0.52-1.04) mg/dL Glucose 112 H (74-99) mg/dL POC Glucose (mg/dL) 122 H (75-99) mg/dL Calcium 8.2 L (8.4-10.2) mg/dL Assessment and Plan Plan: Assessment: 1 acute hypoxic respiratory failure currently improved and the patient is currently back on her normal oxygen flow which is at 4 liters of oxygen per minute nasal cannula, the patient denies having any signs of any respiratory distress 2 acute on chronic kidney failure. The renal function is stable and the patient is showing some improvement in urine output. The patient has required renal replacement therapy and currently she is off dialysis. 3 acute hyperkalemia secondary to above, improved, and we can to follow that the patient was taking Bactrim on outpatient basis was essentially contributed to hyperkalemia. Potassium level is normalized. 4 severe COPD with chronic hypoxic and hypercapnic respiratory failure patient wears for a half liters of oxygen on a regular basis, and she is maintained on a combination of Primacor, Perforomist, Yupelri, and albuterol rescue inhaler on an as-needed basis 5. Secondary pulmonary hypertension with a preserved LV function and ejection fraction of 55% 6. Chronic lymphoid leukemia, with chronic lymphocytosis and chronic anemia with thrombocytopenia 7 History of hypogammaglobulinemia and she is on supplements 8. essential hypertension 9 coronary arteriosclerosis 10. 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 11 hyperuricemia 12 troponin leak 13 UTI secondary to Enterobacter. The patient is currently on ciprofloxacin. Plan: Patient is doing well, she is close to baseline in terms of her breathing, her FiO2 is currently down to 4 L, which she usually wears at home, no worsening dyspnea, she is having another hemodialysis treatment done today, lower extremity edema and breathing have significantly improved, she is producing urine, she remains on IV Lasix, she is on antibiotics for Enterobacter urinary tract infection. She has had no acute events overnight. She could be considered for discharge home once cleared by the nephrology and the medical team I performed a history & physical examination of the patient and discussed their management with my nurse practitioner, Laurel Valadez. I reviewed the nurse practitioner's note and agree with the documented findings and plan of care. Lung sounds are positive for diminished breath sounds. The findings and the impression was discussed with the patient. I attest to the documentation by the nurse practitioner. Time with Patient: Less than 30
[2019-12-16 14:33] LABS: HCT 25.2 % (34.0-46.0); HGB 7.6 gm/dL (11.4-16.0); Hypochromasia Marked; MCH 33.9 pg (25.0-35.0); MCHC 30.3 g/dL (31.0-37.0); MCV 111.8 fL (80.0-100.0); Macrocytosis Marked; Mean Platelet Volume 8.6; RBC 2.25 m/uL (3.80-5.40); RDW 14.4 % (11.5-15.5); WBC 17.4 k/uL (3.8-10.6)
[2019-12-16 14:48] LABS: Platelet Count 60 k/uL (150-450)
[2019-12-16 15:51] LABS: Eosinophils # (M) 0.17 k/uL (0-0.7); Monocytes # (M) 0.17 k/uL (0-1.0); Neutrophils # (M) 3.65 k/uL (1.3-7.7); Neutrophils % (M) 21 %; Nucleated Red Blood Cells 0 /100 WBC (0-0); Total Cells Counted 100
[2019-12-16] MEDS ORDERED: LIDOCAINE 1% INJ 10MG/ML (20 ML MDV) SQ ONE (16:34)
[2019-12-16] MEDS ORDERED: MIDAZOLAM 2 MG/2 ML VIAL IVP ONE ×2 (16:34→17:08)
[2019-12-16] MEDS ORDERED: fentaNYL (PF) 50 MCG/ML 2 ML AMP IVP ONE (16:34)
[2019-12-16] MEDS ORDERED: SODIUM CHLORIDE 0.9% 250 ML IV ONE (17:05)
[2019-12-16] MEDS ORDERED: FLUMAZENIL 0.1 MG/ML 5 ML VIAL IVP ONE ×2 (17:23→17:25)
[2019-12-16 18:02] LABS: Glucose,Whole Blood 130 mg/dL (75-99)
--- NOTE | 2019-12-16 18:12 | OP ---
OPERATIVE REPORT PREOPERATIVE DIAGNOSIS: Acute on chronic renal failure. PROCEDURE AND DESCRIPTION: Ultrasound-guided 21 cm dialysis catheter placement via right jugular approach. Sedation time: 40 minutes. This patient was brought to the cardiac cath lab technologist. Right side of the neck and chest was prepped and draped in sterile manner. Ultrasound-guided micropuncture was introduced into the right jugular vein. Micropuncture guidewire was passed and a 4-[place] dilator was advanced on the top of the guidewire. Then we created a tunnel. Through the tunnel we brought a 21 cm dialysis catheter. Dilator was advanced and sheath was advanced on the top of the guidewire. Through the sheath we introduced the dialysis catheter. The tip of the catheter was in the superior vena cava at the junction, flushed with heparin saline and hep-locked, secured with 3-0 nylon. Dressing was applied. The patient tolerated the procedure well. MMEBONY / TORRIEN: [id number] /
[2019-12-16] MEDS: CYANOCOBALAMIN 500 MCG TAB PO SCH (18:14)
[2019-12-16] MEDS: LORATADINE 10 MG TAB PO PRN (18:18)
--- NOTE | 2019-12-16 18:22 | XR ---
EXAMINATION TYPE: XR chest 1V portable DATE OF EXAM: 12/16/2019 COMPARISON: 12/13/2019 HISTORY: Catheter insertion TECHNIQUE: Single view FINDINGS: There is right-sided central venous catheter with tip in the superior vena cava. There is b ilateral lower lobe pulmonary infiltrates with pleural fluid. Heart appears enlarged. There are chest leads. There is mild pulmonary congestion without obvious heart failure. IMPRESSION: Pulmonary infiltrates and pleural fluid unchanged compared to recent exam.
[2019-12-16 20:09] LABS: Glucose,Whole Blood 163 mg/dL (75-99)
[2019-12-16] MEDS: ATORVASTATIN 40 MG TAB PO SCH (22:04)
[2019-12-17 06:19] LABS: Glucose,Whole Blood 121 mg/dL (75-99)
--- NOTE | 2019-12-17 06:24 | P.CONS ---
History of Present Illness - Chief Complaint Medical debility - History of Present Illness I had the opportunity to see patient for inpatient rehab consultation with regard to medical debility. She was admitted to [facility] December 08 with shortness of breath, exacerbation COPD and CHF and acute hypoxic respiratory failure for which is seen by Dr. Zaragoza and cardiology. Also seen by Dr. Gutierrez for see daily stage III now requiring hemodialysis. Seen by oncology/Dr. Duran for CLL.chest x-rays followed for infiltrates. PT reports supervision for bed mobility, transfers, gait 5 feet with roller walker. OT attempted assess patient but she apparently was resistant examinee. Previous functional history as elicited patient: 79-year-old right-handed white female who is lives in one floor home alone. Retired. Does not drive. Describes independent with own cooking, laundry, standing shower and gait with standard cane or [address] Steph Dooley. Denies tobacco and admits to alcohol. Family history mother with heart disease. Father early. Review of Systems Review of systems: ENT: Denies sneezes or discharge. Eyes: Denies discharge or photophobia. Cardiac: Denies chest pain or palpitation. Pulmonary: Denies cough or shortness of breath. Breast: Denies discharge or lumps. Gastrointestinal: Denies nausea, emesis, constipation, diarrhea. Genitourinary: Denies discharge or frequency. Musculoskeletal: Denies muscle or bone aches. Neurologic: Denies motor or sensory change. Endocrine: Denies shakes or sweats. Oncology: Denies cancers. Dermatologic: Denies rash, itching, pruritus. ALLERGY/immunology: Denies sneezes, rashes. Past Medical History Past Medical History: Cancer, Heart Failure, COPD, Hyperlipidemia, Hypertension, Sleep Apnea/CPAP/BIPAP, Thyroid Disorder Additional Past Medical History / Comment(s): CLL. sleep apnea. macular degeneration. Skin ca History of Any Multi-Drug Resistant Organisms: None Reported Past Surgical History: Heart Catheterization With Stent, Tonsillectomy Additional Past Surgical History / Comment(s): d & c Past Anesthesia/Blood Transfusion Reactions: No Reported Reaction Date of Last Stent Placement:: 2007 Past Psychological History: No Psychological Hx Reported Smoking Status: Former smoker Past Alcohol Use History: Daily Past Drug Use History: None Reported - Past Family History Mother Family Medical History: Congestive Heart Failure (CHF) Father Family Medical History: No Reported History Additional Family Medical History / Comment(s): "Alcohol problems" Chirrosis Medications and Allergies Home Medications Medication Instructions Recorded Confirmed Type Arformoterol Tartrate [Brovana] 15 mcg INHALATION RT-BID 10/03/16 12/09/19 History Aspirin EC [Ecotrin Low Dose] 81 mg PO DAILY 10/03/16 12/09/19 History LORazepam [Ativan] 0.5 mg PO BID PRN 10/03/16 12/09/19 History Levothyroxine Sodium [Synthroid] 100 mcg PO DAILY 10/03/16 12/09/19 History Multivitamins, Thera [Multivitamin 1 tab PO DAILY 10/03/16 12/09/19 History (formulary)] Nitroglycerin Sl Tabs [Nitrostat] 0.4 mg SUBLINGUAL Q5M PRN 10/03/16 12/09/19 History Omeprazole [PriLOSEC] 20 mg PO DAILY 10/03/16 12/09/19 History Vit C/E/Zn/Coppr/Lutein/Zeaxan 1 cap PO BID 10/03/16 12/09/19 History [Preservision Areds 2 Softgel] amLODIPine [Norvasc] 10 mg PO DAILY 10/03/16 12/09/19 History hydrALAZINE HCL 25 mg PO BID 10/03/16 12/09/19 History Atorvastatin [Lipitor] 40 mg PO HS 05/09/19 12/09/19 History Budesonide [Pulmicort] 0.5 mg INHALATION RT-BID 05/09/19 12/09/19 History Ezetimibe [Zetia] 10 mg PO DAILY 05/09/19 12/09/19 History Levothyroxine Sodium [Synthroid] 50 mcg PO PADILLA 05/09/19 12/09/19 History Yupelri 175mcg/3ml 175 mcg INHALATION RT-DAILY 05/09/19 12/09/19 History carvediloL [Coreg] 6.25 mg PO BID 05/09/19 12/09/19 History Clopidogrel [Plavix] 75 mg PO DAILY #30 tab 05/11/19 12/09/19 Rx Isosorbide Mononitrate ER [Imdur] 30 mg PO DAILY #30 tab.er.24h 05/11/19 12/09/19 Rx Potassium Chloride ER [K-Dur 20] 20 meq PO DAILY 08/03/19 12/09/19 History Melatonin 3 mg PO HS PRN tablet 08/04/19 12/09/19 Rx Albuterol Inhaler [Ventolin Hfa 2 puff INHALATION RT-QID PRN 10/02/19 12/09/19 History Inhaler] Promethaz-Cod 6.25-10 mg/5 ml 5 ml PO Q6HR PRN 10/02/19 12/09/19 History [Phenergan with Codeine] metFORMIN HCL [Glucophage] 500 mg PO BID-W/MEALS 10/02/19 12/09/19 History sitaGLIPtin PHOSPHATE [Januvia] 100 mg PO DAILY 10/02/19 12/09/19 History Escitalopram [Lexapro] 10 mg PO DAILY #10 tab 10/06/19 12/09/19 Rx Torsemide [Demadex] 40 mg PO DAILY #30 tab 10/06/19 12/09/19 Rx Loratadine [Claritin] 10 mg PO DAILY 12/09/19 12/09/19 History predniSONE [Deltasone] 20 mg PO BID 12/09/19 12/09/19 History Allergies Allergy/AdvReac Type Severity Reaction Status Date / Time No Known Allergies Allergy Verified 12/09/19 12:25 Physical Exam Vitals: Vital Signs Temp Pulse Pulse Resp BP Pulse Ox 12/17/19 04:00 97.9 F 79 18 114/54 98 12/17/19 00:00 97.5 F L 86 18 112/57 91 L 12/16/19 20:13 94 12/16/19 20:03 92 12/16/19 20:00 97.6 F 72 18 102/55 94 L 12/16/19 18:00 61 20 122/59 90 L 12/16/19 14:53 97.7 F 74 20 109/53 96 12/16/19 12:06 98.8 F 62 18 102/54 12/16/19 12:00 97.7 F 74 20 109/53 96 12/16/19 07:45 98.8 F 83 20 102/53 96 12/16/19 06:24 114/57 Intake and Output 12/16/19 12/16/19 12/17/19 14:59 22:59 06:59 Intake Total 230 150 Output Total 675 120 540 Balance -445 30 -540 Intake: IV 150 Oral 230 Output: Urine 120 540 Hemodialysis 675 Other: Voiding Method Indwelling Catheter Indwelling Catheter Indwelling Catheter # Voids 1 Weight 83.4 kg Skin: atrophic, intact. General: overweight build and comfortable appearance. Head: Normocephalic, atraumatic. Eyes: Symmetric. Pupils equal round. Ears: Symmetric. Hearing within normal limits. Mouth: Clear. Neck: Supple. Carotid without bruit. Cardiac: Regular rate and rhythm. Lungs: Clear anteriorly and posteriorly. Abdomen: Soft active nontender. Extremities: Normal tone. Neurological: Mental status: Alert, cooperative, pleasant. Cranial nerves: Symmetric facial tone and trapezius. Motor: Normal strength and isolation all 4 limbs.restricted right arm due to blanket. Sensation: Intact throughout. DTRs: Symmetric and equal throughout. Mobility: reports that she is able to get from bed to bedside Yesi chair on her own. Results CBC & Chem 7: 12/16/19 14:16 12/16/19 06:13 Labs: Abnormal Lab Results - Last 24 Hours (Table) 12/16/19 12/16/19 12/16/19 Range/Units 06:13 11:59 14:16 WBC 17.4 H (3.8-10.6) k/uL RBC 2.25 L (3.80-5.40) m/uL Hgb 7.6 L (11.4-16.0) gm/dL Hct 25.2 L (34.0-46.0) % MCV 111.8 H (80.0-100.0) fL MCHC 30.3 L (31.0-37.0) g/dL Plt Count 60 L (150-450) k/uL Lymphocytes # (Manual) 13.40 H (1.0-4.8) k/uL Macrocytosis Marked A Sodium 136 L (137-145) mmol/L BUN 33 H (7-17) mg/dL Creatinine 3.60 H (0.52-1.04) mg/dL Glucose 112 H (74-99) mg/dL POC Glucose (mg/dL) 122 H (75-99) mg/dL Calcium 8.2 L (8.4-10.2) mg/dL 12/16/19 12/16/19 Range/Units 18:00 20:08 WBC (3.8-10.6) k/uL RBC (3.80-5.40) m/uL Hgb (11.4-16.0) gm/dL Hct (34.0-46.0) % MCV (80.0-100.0) fL MCHC (31.0-37.0) g/dL Plt Count (150-450) k/uL Lymphocytes # (Manual) (1.0-4.8) k/uL Macrocytosis Sodium (137-145) mmol/L BUN (7-17) mg/dL Creatinine (0.52-1.04) mg/dL Glucose (74-99) mg/dL POC Glucose (mg/dL) 130 H 163 H (75-99) mg/dL Calcium (8.4-10.2) mg/dL Assessment and Plan (1) Acute renal failure superimposed on chronic kidney disease, on chronic dialysis Current Visit: Yes Status: Acute Code(s): N17.9 - ACUTE KIDNEY FAILURE, UNSPECIFIED; N18.9 - CHRONIC KIDNEY DISEASE, UNSPECIFIED; Z99.2 - DEPENDENCE ON RENAL DIALYSIS SNOMED Code(s): 838413565 (2) CLL (chronic lymphocytic leukemia) Current Visit: Yes Status: Acute Code(s): C91.10 - CHRONIC LYMPHOCYTIC LEUK OF B-CELL TYPE NOT ACHIEVE REMIS SNOMED Code(s): 47189104 (3) COPD (chronic obstructive pulmonary disease) Current Visit: Yes Status: Acute Code(s): J44.9 - CHRONIC OBSTRUCTIVE PULMONARY DISEASE, UNSPECIFIED SNOMED Code(s): 30492225 (4) Congestive heart failure Current Visit: Yes Status: Acute Code(s): I50.9 - HEART FAILURE, UNSPECIFIED SNOMED Code(s): 39235850 Plan: impression: 1. Medical debility. 2. Acute hypoxic respiratory failure. 3. Exacerbation COPD and CHF. 4. CLL. 5. CKD stage III requiring hemodialysis. 6. Hypertension. 7. dyslipidemia. 8. Sleep apnea. 9.hypothyroid. Comments and plan: At this time PT ongoing. Patient reportedly resistance to thorough OT evaluation.patient did well with OT and technically would not requ rui inpatient rehab. We'll follow therapy notes today. Patient reports that she is adamant about return to home and unlikely to consider alternative plan.
[2019-12-17] MEDS: PANTOPRAZOLE 40 MG TABLET PO SCH (06:35)
[2019-12-17] MEDS: LEVOTHYROXINE 100 MCG TAB PO SCH (06:37)
--- NOTE | 2019-12-17 07:44 | XR ---
EXAMINATION TYPE: XR chest 1V portable DATE OF EXAM: 12/17/2019 HISTORY: Shortness of breath. COMPARISON: 12/16/2019 TECHNIQUE: Single view of the chest is submitted. FINDINGS: Demonstrated are scattered senescent parenchymal change. Basilar infiltrates and/or atelectasis persist without significant change. The heart is stable. Comminuted venous engorgement without overt failure. Hilar and mediastinal structures are within normal limits. Degenerative changes are seen of the dorsal spine. IMPRESSION: 1. Basilar infiltrates and/or atelectasis persist without significant change.
[2019-12-17 08:02] LABS: HCT 24.9 % (34.0-46.0); HGB 7.2 gm/dL (11.4-16.0); Hypochromasia Marked; MCH 33.4 pg (25.0-35.0); MCV 115.2 fL (80.0-100.0); Macrocytosis Marked; Mean Platelet Volume 8.5; RBC 2.16 m/uL (3.80-5.40); RDW 14.8 % (11.5-15.5); WBC 17.8 k/uL (3.8-10.6)
[2019-12-17] MEDS: MIDODRINE 5 MG TAB PO SCH ×3 (08:03→17:45)
[2019-12-17] MEDS: INSULIN ASPART (NovoLOG) 100 UNIT/ML VIAL SQ SCH ×4 (08:03→21:21)
[2019-12-17 08:14] LABS: Platelet Count 77 k/uL (150-450)
[2019-12-17] MEDS: BUDESONIDE 0.5 MG/2 ML NEBU INHALATION SCH ×2 (09:16→19:06)
[2019-12-17] MEDS: IPRATROPIUM-ALBUTEROL 3 ML NEB INHALATION SCH ×4 (09:16→19:06)
[2019-12-17] MEDS: ESCITALOPRAM 10 MG TAB PO SCH (10:09)
[2019-12-17] MEDS: CIPROFLOXACIN HCL 500 MG TAB PO SCH (10:09)
[2019-12-17] MEDS: ASPIRIN 81 MG PO SCH (10:10)
[2019-12-17] MEDS: SENNOSIDES 8.6 MG TAB PO SCH ×2 (10:10→21:20)
[2019-12-17] MEDS: FUROSEMIDE 10 MG/ML 10 ML VIAL IV SCH ×2 (10:10→21:11)
[2019-12-17] MEDS: METOPROLOL TARTRATE 25 MG TAB PO SCH ×2 (10:10→21:11)
[2019-12-17] MEDS: EZETIMIBE 10 MG TAB PO SCH (10:10)
[2019-12-17 10:47] LABS: Albumin 3.1 g/dL (3.5-5.0); Calcium 8.5 mg/dL (8.4-10.2); Potassium 4.9 mmol/L (3.5-5.1); Total Bilirubin 0.5 mg/dL (0.2-1.3); Total Protein 5.3 g/dL (6.3-8.2)
[2019-12-17 11:02] LABS: Eosinophils # (M) 0.18 k/uL (0-0.7); Monocytes # (M) 0.53 k/uL (0-1.0); Neutrophils # (M) 2.49 k/uL (1.3-7.7); Neutrophils % (M) 14 %; Nucleated Red Blood Cells 0 /100 WBC (0-0); Total Cells Counted 100
[2019-12-17 12:02] LABS: Glucose,Whole Blood 271 mg/dL (75-99)
--- NOTE | 2019-12-17 12:54 | P.PN ---
Subjective Progress Note Date: 12/17/19 Principal diagnosis: renal failure CBC and Renal function appear to remain about the same, despite dialysis. She is weak and agree with eval for IPR. Objective - Vital Signs Vital signs: Vital Signs Temp 98.6 F 12/17/19 08:00 Pulse 92 12/17/19 09:32 Resp 19 12/17/19 08:00 BP 126/63 12/17/19 08:00 Pulse Ox 93 L 12/17/19 08:00 Intake & Output 12/16/19 12/17/19 12/17/19 18:59 06:59 18:59 Intake Total 380 250 Output Total 675 660 150 Balance -295 -660 100 Weight 83.4 kg Intake: IV 150 Oral 230 250 Output: Urine 660 150 Hemodialysis 675 Other: Voiding Method Indwelling Catheter Indwelling Catheter Indwelling Catheter # Voids 1 - Exam - Constitutional General appearance: cooperative, no acute distress - EENT Eyes: EOMI ENT: hard of hearing, NA/AT - Neck Neck: normal ROM - Respiratory Respiratory: left: wheezing, bilateral: diminished - Cardiovascular Rhythm: regularly irregular leg Peripheral Edema: bilateral: 1+ - Gastrointestinal General gastrointestinal: normal bowel sounds, soft - Integumentary Integumentary: pale - Neurologic non focal - Musculoskeletal Musculoskeletal: generalized weakness - Psychiatric Flat affect - Labs CBC & Chem 7: 12/17/19 06:46 12/17/19 06:46 Labs: Abnormal Lab Results - Last 24 Hours (Table) 12/16/19 12/16/19 12/16/19 Range/Units 14:16 18:00 20:08 WBC 17.4 H (3.8-10.6) k/uL RBC 2.25 L (3.80-5.40) m/uL Hgb 7.6 L (11.4-16.0) gm/dL Hct 25.2 L (34.0-46.0) % MCV 111.8 H (80.0-100.0) fL MCHC 30.3 L (31.0-37.0) g/dL Plt Count 60 L (150-450) k/uL Lymphocytes # (Manual) 13.40 H (1.0-4.8) k/uL Macrocytosis Marked A Sodium (137-145) mmol/L BUN (7-17) mg/dL Creatinine (0.52-1.04) mg/dL Glucose (74-99) mg/dL POC Glucose (mg/dL) 130 H 163 H (75-99) mg/dL Total Protein (6.3-8.2) g/dL Albumin (3.5-5.0) g/dL 12/17/19 12/17/19 12/17/19 Range/Units 06:18 06:46 06:46 WBC 17.8 H (3.8-10.6) k/uL RBC 2.16 L (3.80-5.40) m/uL Hgb 7.2 L (11.4-16.0) gm/dL Hct 24.9 L (34.0-46.0) % MCV 115.2 H (80.0-100.0) fL MCHC 29.0 L (31.0-37.0) g/dL Plt Count 77 L (150-450) k/uL Lymphocytes # (Manual) 14.60 H (1.0-4.8) k/uL Macrocytosis Marked A Sodium 136 L (137-145) mmol/L BUN 31 H (7-17) mg/dL Creatinine 3.64 H (0.52-1.04) mg/dL Glucose 104 H (74-99) mg/dL POC Glucose (mg/dL) 121 H (75-99) mg/dL Total Protein 5.3 L (6.3-8.2) g/dL Albumin 3.1 L (3.5-5.0) g/dL 12/17/19 Range/Units 11:46 WBC (3.8-10.6) k/uL RBC (3.80-5.40) m/uL Hgb (11.4-16.0) gm/dL Hct (34.0-46.0) % MCV (80.0-100.0) fL MCHC (31.0-37.0) g/dL Plt Count (150-450) k/uL Lymphocytes # (Manual) (1.0-4.8) k/uL Macrocytosis Sodium (137-145) mmol/L BUN (7-17) mg/dL Creatinine (0.52-1.04) mg/dL Glucose (74-99) mg/dL POC Glucose (mg/dL) 271 H (75-99) mg/dL Total Protein (6.3-8.2) g/dL Albumin (3.5-5.0) g/dL Assessment and Plan (1) Acute renal failure superimposed on chronic kidney disease, on chronic dialysis Current Visit: Yes Status: Acute Code(s): N17.9 - ACUTE KIDNEY FAILURE, UNSPECIFIED; N18.9 - CHRONIC KIDNEY DISEASE, UNSPECIFIED; Z99.2 - DEPENDENCE ON RENAL DIALYSIS SNOMED Code(s): 277405882 (2) CARLOS (acute kidney injury) Current Visit: Yes Status: Acute Code(s): N17.9 - ACUTE KIDNEY FAILURE, UNSPECIFIED SNOMED Code(s): 74356095 (3) CLL (chronic lymphocytic leukemia) Current Visit: Yes Status: Acute Code(s): C91.10 - CHRONIC LYMPHOCYTIC LEUK OF B-CELL TYPE NOT ACHIEVE REMIS SNOMED Code(s): 94714666 (4) COPD (chronic obstructive pulmonary disease) Current Visit: Yes Status: Acute Code(s): J44.9 - CHRONIC OBSTRUCTIVE PULMONARY DISEASE, UNSPECIFIED SNOMED Code(s): 67786133 (5) Congestive heart failure Current Visit: Yes Status: Acute Code(s): I50.9 - HEART FAILURE, UNSPECIFIED SNOMED Code(s): 59431176 (6) Leukocytosis Current Visit: No Status: Acute Code(s): D72.829 - ELEVATED WHITE BLOOD CELL COUNT, UNSPECIFIED SNOMED Code(s): 951550809 (7) Macrocytic anemia Current Visit: Yes Status: Acute Code(s): D53.9 - NUTRITIONAL ANEMIA, UNSPECIFIED SNOMED Code(s): 30181368 Plan: Assessment and Plan: Acute on Chronic Hypoxic Respiratory Failure: - Improved Acute Renal Failure on Chronic Kidney Disease: Stage unknown - Nephrology FOllowing - Hemodialysis per nephro - Improving Chronic Lymphocytic Leukemia: Stable disease and improved this admission - Maintained on observation with recent CT suspicious of worsening disease, although her WBC has been relatively unchanged and at her baseline 40-50K. Discussed further with primary oncologist and at this time no treatment recommended. Macrocytic Anemia: - Multifactorial - Renal function, underlying CLL, and B12 deficiency (Normal B12 level although elevated MMA) Start B12 1000 po daily - Hemoglobin has remained same since admission (no transfusion needed today) transfuse during dialysis if less than 7 - Erythropoetin Pending Thrombocytopenia: - Likely reactive to infection/inflammation/medication although given she usually holds a normal platelet count until recently, other factors should be considered. - Heparin antibodies Negative, therefore likely secondary to acute inflammation/infection. Maybe component ITP - Monitoring Coags and for signs of bleeding - D/C Heparin and NSAIdS - No schistocytes to indicate TTP - Hold Anticoagulation when less than 50K - Transfuse Platelets if less than 10K UTI - Cultures positive for enterobacter - Cipro continued per sensitivity - IgG greater than 600 - no IVIG necessary Leukocytosis: Secondary to CLL, exacerbated by infection - TLS bloodwork ordered - Status Post elitek on 12/09 Declining Performance Status and Chronic Illness Myopathy: Improving - Possibly secondary inflammatory/infectious/renal failure - Treatment of underlying causes and re-evaluate, if improvement is seen hopefully will be candidate for PT/OT. - Agree with IPR eval and plan at discharge for Rehab to inprove performance Plan: ok from onc stand point for discharge and follow-up after discharged
--- NOTE | 2019-12-17 13:44 | IR ---
EXAMINATION TYPE: IR cvc insert central tunneled DATE OF EXAM: 12/16/2019 COMPARISON: None HISTORY: Tunneled central line placement TECHNIQUE: Fluoroscopy. FINDINGS: Fluoroscopic guidance was provided during right internal jugular hemodialysis catheter artem cement for performing physician. A total of 1.3 minutes of fluoroscopic time was utilized during the procedure and 152 images was acquired. Please see operative report for additional details. IMPRESSION: As Above.
[2019-12-17] MEDS ORDERED: ONDANSETRON 4 MG/2 ML VIAL IVP STA (13:48)
[2019-12-17] MEDS ORDERED: ONDANSETRON 4 MG/2 ML VIAL ONE (13:49)
--- NOTE | 2019-12-17 16:17 | P.PN ---
Subjective 79-year-old the pleasant female came in with the worsening shortness of breath. Patient is found to have worsening renal function it has been progressively worsening patient is found to have elevated potassium of 8.6. Patient was treated with multiple doses of IV calcium gluconate, Lasix, insulin with D50 in spite of which potassium didn't respond very well because of which patient had emergent dialysis. Patient does make urine. Patient was volume overloaded because of her decreased urine output. Patient the appears to have chronic kidney disease stage IV above. Patient had elevation in serum creatinine for her his baseline. There is no evidence of infection at this time patient denied any dysuria patient denied any cough fever chills. As per the nephrology patient may have some acute blood necrosis. Patient is definitely bit volume overloaded BNP is elevated at this volume overload is probably secondary to renal failure. Although patient may have some chronic diastolic dysfunction. Cardiology evaluate the patient as well. Echocardiogram is being obtained. 12/10/2019 Patient had significant improvement in respiratory status patient is presently on the around 30 L of oxygen. Saturating well. Patient looks better serum potassium improved. Patient did undergo hemodialysis today as well. Patient urine cultures are positive for gram-negative bacilli patient is on Rocephin for urinary tract infection. 12/11/2019 Patient remains on for 4 L of oxygen patient did undergo hemodialysis today removed about 2 L today patient had about 1 L of for fluid removed via hemodialysis yesterday. still has urine output but the low, patient's symptoms are showing Enterobacter cloaca. Patient's and hematocrit will be switched to ciprofloxacin 12/12/2019 Is presently and 80 to salons and feeling better. Patient is not undergoing hemodialysis today chest x-ray is still showing some bilateral pleural effusions and pulmonary venous congestion patient [place] [id number] 12/13/2019 She is presently on 6 L of pulse and will be transferred to ICU patient is receiving hemodialysis today 12/14/2019 Patient is presently on liters of oxygen and patient does use for his of oxygen at home, patient will undergo hemodialysis today. Physical diarrhea patient evaluation possibility of discharge on Monday12/15/2019 Patient remains on 4 L of oxygen patient did undergo dialysis yesterday patient will be started on dialysis tomorrow urinating well as per nephrology patient will be started on Monday schedule of hemodialysis 12/16/2019 Patient will undergo dialysis today nephrology didn't cleared her for discharge yet. 12/17/2019 Patient will undergo hemodialysis today patient will be discharged to subacute rehabilitation tomorrow patient is agreeable to go to rehab. Patient fully catheter will remain until the after evaluation by nephrology and Teodoro diaz and hemodialysis this fully catheter will be considered and remote. Patient is on Lasix which will be continued for now. Patient is on Cipro at this time which showed probably can be discontinued upon discharge Constitutional: Denied any fatigue denied any fever. Cardio vascular: denied any chest pain, palpitations Gastrointestinal denied any nausea vomiting Pulmonary: Denied any shortness of breath cough Neurologic denied any new focal deficits All inpatient medications were reviewed and appropriate changes in these medications as dictated in the interval history and assessment and plan. Objective - Vital Signs Vital signs: Vital Signs Temp 98.6 F 12/17/19 15:54 Pulse 76 12/17/19 15:54 Resp 18 12/17/19 15:54 BP 97/52 12/17/19 15:54 Pulse Ox 91 L 12/17/19 12:00 Intake & Output 12/16/19 12/17/19 12/17/19 18:59 06:59 18:59 Intake Total 380 250 Output Total 947 587 5123 Balance -295 -660 -2900 Weight 83.4 kg Intake: IV 150 Oral 230 250 Output: Urine 660 150 Hemodialysis 675 3000 Other: Voiding Method Indwelling Catheter Indwelling Catheter Indwelling Catheter # Voids 1 - Exam PHYSICAL EXAMINATION: GENERAL: The patient is alert and oriented x3, not in any acute distress. Well developed, well nourished. HEENT: Pupils are round and equally reacting to light. EOMI. No scleral icterus. No conjunctival pallor. Normocephalic, atraumatic. No pharyngeal erythema. No thyromegaly. CARDIOVASCULAR: S1 and S2 present. No murmurs, rubs, or gallops. PULMONARY: Chest is clear to auscultation, no wheezing or crackles. ABDOMEN: Soft, nontender, nondistended, normoactive bowel sounds. No palpable organomegaly. MUSCULOSKELETAL: No joint swelling or deformity. EXTREMITIES: No cyanosis, clubbing, or pedal edema. NEUROLOGICAL: Gross neurological examination did not reveal any focal deficits. SKIN: No rashes. - Labs CBC & Chem 7: 12/17/19 06:46 12/17/19 06:46 Labs: Abnormal Lab Results - Last 24 Hours (Table) 12/16/19 12/16/19 12/17/19 Range/Units 18:00 20:08 06:18 WBC (3.8-10.6) k/uL RBC (3.80-5.40) m/uL Hgb (11.4-16.0) gm/dL Hct (34.0-46.0) % MCV (80.0-100.0) fL MCHC (31.0-37.0) g/dL Plt Count (150-450) k/uL Lymphocytes # (Manual) (1.0-4.8) k/uL Macrocytosis Sodium (137-145) mmol/L BUN (7-17) mg/dL Creatinine (0.52-1.04) mg/dL Glucose (74-99) mg/dL POC Glucose (mg/dL) 130 H 163 H 121 H (75-99) mg/dL Total Protein (6.3-8.2) g/dL Albumin (3.5-5.0) g/dL 12/17/19 12/17/19 12/17/19 Range/Units 06:46 06:46 11:46 WBC 17.8 H (3.8-10.6) k/uL RBC 2.16 L (3.80-5.40) m/uL Hgb 7.2 L (11.4-16.0) gm/dL Hct 24.9 L (34.0-46.0) % MCV 115.2 H (80.0-100.0) fL MCHC 29.0 L (31.0-37.0) g/dL Plt Count 77 L (150-450) k/uL Lymphocytes # (Manual) 14.60 H (1.0-4.8) k/uL Macrocytosis Marked A Sodium 136 L (137-145) mmol/L BUN 31 H (7-17) mg/dL Creatinine 3.64 H (0.52-1.04) mg/dL Glucose 104 H (74-99) mg/dL POC Glucose (mg/dL) 271 H (75-99) mg/dL Total Protein 5.3 L (6.3-8.2) g/dL Albumin 3.1 L (3.5-5.0) g/dL Assessment and Plan Plan: -Acute hypoxic respiratory failure requiring BiPAP on admission presently on 4 L of oxygen Secondary to fluid overload from kidney failure and fluid retention.hemodialysis today. Possibly of discharge tomorrow -Possible acute exacerbation of her chronic diastolic dysfunction -Acute on chronic renal failure stage V -Hyperkalemia: Secondary to acute renal failure, chronic kidney disease stage V. 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 Presently doesn't appear to be in acute exacerbation at this time -DVT prophylaxis with subcutaneous heparin
--- NOTE | 2019-12-17 16:49 | PN ---
PROGRESS NOTE Patient is seen for followup for acute kidney injury, currently hemodialysis dependent. Patient does have some urine output; however, her creatinine remains elevated during treatments. Patient also has some volume overload. She did get an IJ PermCath and patient will be dialyzed today as she could not get a treatment yesterday since her catheter was not working. PHYSICAL EXAMINATION: On examination today, blood pressure 95/47, heart rate 86 per minute, she is afebrile. Examination of the heart S1, S2. Examination of the lungs, bilateral breath sounds are heard. Abdomen is soft, nontender. Examination of the lower extremities shows edema 2+ bilaterally. MANAGER COPY exam grossly intact. LABS: Show hemoglobin 7.2, sodium 136, potassium 4.9, BUN 31, creatinine 3.64. ASSESSMENT: 1. Acute kidney injury, ATN currently hemodialysis dependent. We will dialyze the patient today. She will continue outpatient dialysis and we will record her urine output prior to her presentation to the dialysis unit on and check labs on as well to see if there is any change in her serum creatinine. 2. Volume overload, slowly improving. 3. Chronic kidney disease secondary to nephrosclerosis. Baseline creatinine around 1.5. 4. CHF acute on top of chronic mainly diastolic. 5. Severe pulmonary hypertension and moderate to severe tricuspid regurgitation with volume overload, now improved. 6. Hyperkalemia on initial admission, currently improved. PLAN: Hemodialysis today. Patient can be discharged post dialysis and she will follow up for her dialysis as outpatient on . We will monitor the urine output while she is at the group home and check labs prior to her dialysis on as well. We will continue to monitor for recovery of renal function. MMODL / IJN: [id number] /
[2019-12-17 17:26] LABS: Glucose,Whole Blood 122 mg/dL (75-99)
[2019-12-17] MEDS: CYANOCOBALAMIN 500 MCG TAB PO SCH (17:46)
[2019-12-17 20:46] LABS: Glucose,Whole Blood 214 mg/dL (75-99)
[2019-12-17] MEDS ORDERED: SODIUM CHLORIDE 0.9% 500 ML 250 ML IV ONE (21:11)
[2019-12-17] MEDS: ATORVASTATIN 40 MG TAB PO SCH (21:21)
[2019-12-17] MEDS ORDERED: MIDODRINE 5 MG TAB PO ONE (21:35)
[2019-12-18] MEDS: LEVOTHYROXINE 100 MCG TAB PO SCH (04:40)
[2019-12-18] MEDS: MIDODRINE 5 MG TAB PO SCH ×2 (04:40→11:18)
[2019-12-18 06:11] LABS: Glucose,Whole Blood 120 mg/dL (75-99)
[2019-12-18] MEDS: INSULIN ASPART (NovoLOG) 100 UNIT/ML VIAL SQ SCH ×2 (06:12→12:05)
[2019-12-18] MEDS: PANTOPRAZOLE 40 MG TABLET PO SCH (06:43)
[2019-12-18] MEDS: BUDESONIDE 0.5 MG/2 ML NEBU INHALATION SCH (07:40)
[2019-12-18] MEDS: IPRATROPIUM-ALBUTEROL 3 ML NEB INHALATION SCH ×3 (07:40→14:59)
--- NOTE | 2019-12-18 09:03 | P.DS ---
Providers Date of admission: 12/09/19 03:23 Attending physician: Anayeli Martinez Consults: 12/09/19 03:19 Consult Physician Stat Consulting Provider: Otoniel Shoemaker Consult Reason/Comments: ICU management, CHF, CARLOS, HyperK Do you want consulting provider notified?: Already Contacted 12/09/19 03:24 Consult Physician Routine Consulting Provider: Stu Gomez Consult Reason/Comments: established patient Do you want consulting provider notified?: Yes, Notify in am Consult Physician Urgent Consulting Provider: [facility] Consult Reason/Comments: CHF Do you want consulting provider notified?: Yes, Notify in am 12/09/19 03:25 Consult Physician Routine Consulting Provider: Elmer Gutierrez Consult Reason/Comments: CARLOS, hyperkalemia Do you want consulting provider notified?: Yes, Notify in am 12/09/19 11:04 Consult Physician Stat Consulting Provider: Sergo Cross Consult Reason/Comments: dialysis cath placement Do you want consulting provider notified?: Yes 12/16/19 15:38 Consult Physician Routine Consulting Provider: Tu Marte Consult Reason/Comments: eval for inpatient rehab Do you want consulting provider notified?: Yes Primary care physician: Radha B [facility] Course: 79-year-old the pleasant female came in with the worsening shortness of breath. Patient is found to have worsening renal function it has been progressively worsening patient is found to have elevated potassium of 8.6. Patient was treated with multiple doses of IV calcium gluconate, Lasix, insulin with D50 in spite of which potassium didn't respond very well because of which patient had emergent dialysis. Patient does make urine. Patient was volume overloaded because of her decreased urine output. Patient the appears to have chronic kidney disease stage IV above. Patient had elevation in serum creatinine for her his baseline. There is no evidence of infection at this time patient denied any dysuria patient denied any cough fever chills. As per the nephrology claudia ent may have some acute blood necrosis. Patient is definitely bit volume overloaded BNP is elevated at this volume overload is probably secondary to renal failure. Although patient may have some chronic diastolic dysfunction. Cardiology evaluate the patient as well. Echocardiogram is being obtained. 12/10/2019 Patient had significant improvement in respiratory status patient is presently on the around 30 L of oxygen. Saturating well. Patient looks better serum potassium improved. Patient did undergo hemodialysis today as well. Patient urine cultures are positive for gram-negative bacilli patient is on Rocephin for urinary tract infection. 12/11/2019 Patient remains on for 4 L of oxygen patient did undergo hemodialysis today removed about 2 L today patient had about 1 L of for fluid removed via hemodialysis yesterday. still has urine output but the low, patient's symptoms are showing Enterobacter cloaca. Patient's and hematocrit will be switched to ciprofloxacin 12/12/2019 Is presently and 80 to salons and feeling better. Patient is not undergoing hemodialysis today chest x-ray is still showing some bilateral pleural effusions and pulmonary venous congestion patient [place] [phone] 12/13/2019 She is presently on 6 L of pulse and will be transferred to ICU patient is receiving hemodialysis today 12/14/2019 Patient is presently on liters of oxygen and patient does use for his of oxygen at home, patient will undergo hemodialysis today. Physical diarrhea patient evaluation possibility of discharge on Monday12/15/2019 Patient remains on 4 L of oxygen patient did undergo dialysis yesterday patient will be started on dialysis tomorrow urinating well as per nephrology patient will be started on Monday schedule of hemodialysis 12/16/2019 Patient will undergo dialysis today nephrology didn't cleared her for discharge yet. 12/17/2019 Patient will undergo hemodialysis today patient will be discharged to subacute rehabilitation tomorrow patient is agreeable to go to rehab. Patient fully catheter will remain until the after evaluation by nephrology and and hemodialysis this fully catheter will be considered and remote. Patient is on Lasix which will be continued for now. Patient is on Cipro at this time which showed probably can be discontinued upon discharge 12/18/2019 Patient will undergo dialysis today after that patient will be discharged. Patient blood pressure is slightly on the lower side today PHYSICAL EXAMINATION: GENERAL: The patient is alert and oriented x3, not in any acute distress. Well developed, well nourished. HEENT: Pupils are round and equally reacting to light. EOMI. No scleral icterus. No conjunctival pallor. Normocephalic, atraumatic. No pharyngeal erythema. No thyromegaly. CARDIOVASCULAR: S1 and S2 present. No murmurs, rubs, or gallops. PULMONARY: Chest is clear to auscultation, no wheezing or crackles. ABDOMEN: Soft, nontender, nondistended, normoactive bowel sounds. No palpable organomegaly. MUSCULOSKELETAL: No joint swelling or deformity. EXTREMITIES: No cyanosis, clubbing, or pedal edema. NEUROLOGICAL: Gross neurological examination did not reveal any focal deficits. SKIN: No rashes. Assessment and Plan Plan: -Acute hypoxic respiratory failure requiring BiPAP on admission presently on 4 L of oxygen Secondary to fluid overload from kidney failure and fluid retention.hemodialysis todayfor which patient will be discharged. Patient will keep the Haskins catheter is monitored by nephrology and patient the Haskins catheter probably will be removed tomorrow with dialysis -Possible acute exacerbation of her chronic diastolic dysfunction -Acute on chronic renal failure stage V -Hyperkalemia: Secondary to acute renal failure, chronic kidney disease stage V. 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 Presently doesn't appear to be in acute exacerbation at this time Patient Condition at Discharge: Critical Plan - Discharge Summary New Discharge Prescriptions: New Metoprolol Tartrate [Lopressor] 25 mg PO BID #0 tab polyethylene glycoL 3350 [Miralax] 17 gm PO HS PRN powd.pack PRN Reason: Constipation Continue Arformoterol Tartrate [Brovana] 15 mcg INHALATION RT-BID Aspirin EC [Ecotrin Low Dose] 81 mg PO DAILY Levothyroxine Sodium [Synthroid] 100 mcg PO DAILY Multivitamins, Thera [Multivitamin (formulary)] 1 tab PO DAILY Nitroglycerin Sl Tabs [Nitrostat] 0.4 mg SUBLINGUAL Q5M PRN PRN Reason: Chest Pain Omeprazole [PriLOSEC] 20 mg PO DAILY Vit C/E/Zn/Coppr/Lutein/Zeaxan [Preservision Areds 2 Softgel] 1 cap PO BID Yupelri 175mcg/3ml 175 mcg INHALATION RT-DAILY Atorvastatin [Lipitor] 40 mg PO HS Budesonide [Pulmicort] 0.5 mg INHALATION RT-BID Ezetimibe [Zetia] 10 mg PO DAILY Levothyroxine Sodium [Synthroid] 50 mcg PO PADILLA Isosorbide Mononitrate ER [Imdur] 30 mg PO DAILY #30 tab.er.24h Clopidogrel [Plavix] 75 mg PO DAILY #30 tab Melatonin 3 mg PO HS PRN tablet PRN Reason: Insomnia Promethaz-Cod 6.25-10 mg/5 ml [Phenergan with Codeine] 5 ml PO Q6HR PRN PRN Reason: Cough Albuterol Inhaler [Ventolin Hfa Inhaler] 2 puff INHALATION RT-QID PRN PRN Reason: Shortness Of Breath Torsemide [Demadex] 40 mg PO DAILY #30 tab Escitalopram [Lexapro] 10 mg PO DAILY #10 tab predniSONE [Deltasone] 20 mg PO BID Loratadine [Claritin] 10 mg PO DAILY LORazepam [Ativan] 0.5 mg PO BID PRN #10 tab PRN Reason: Anxiety Discontinued amLODIPine [Norvasc] 10 mg PO DAILY hydrALAZINE HCL 25 mg PO BID carvediloL [Coreg] 6.25 mg PO BID Potassium Chloride ER [K-Dur 20] 20 meq PO DAILY sitaGLIPtin PHOSPHATE [Januvia] 100 mg PO DAILY metFORMIN HCL [Glucophage] 500 mg PO BID-W/MEALS Discharge Medication List Arformoterol Tartrate [Brovana] 15 mcg INHALATION RT-BID 10/03/16 [History] Aspirin EC [Ecotrin Low Dose] 81 mg PO DAILY 10/03/16 [History] Levothyroxine Sodium [Synthroid] 100 mcg PO DAILY 10/03/16 [History] Multivitamins, Thera [Multivitamin (formulary)] 1 tab PO DAILY 10/03/16 [History ] Nitroglycerin Sl Tabs [Nitrostat] 0.4 mg SUBLINGUAL Q5M PRN 10/03/16 [History] Omeprazole [PriLOSEC] 20 mg PO DAILY 10/03/16 [History] Vit C/E/Zn/Coppr/Lutein/Zeaxan [Preservision Areds 2 Softgel] 1 cap PO BID 10/03/16 [History] Atorvastatin [Lipitor] 40 mg PO HS 05/09/19 [History] Budesonide [Pulmicort] 0.5 mg INHALATION RT-BID 05/09/19 [History] Ezetimibe [Zetia] 10 mg PO DAILY 05/09/19 [History] Levothyroxine Sodium [Synthroid] 50 mcg PO PADILLA 05/09/19 [History] Yupelri 175mcg/3ml 175 mcg INHALATION RT-DAILY 05/09/19 [History] Clopidogrel [Plavix] 75 mg PO DAILY #30 tab 05/11/19 [Rx] Isosorbide Mononitrate ER [Imdur] 30 mg PO DAILY #30 tab.er.24h 05/11/19 [Rx] Melatonin 3 mg PO HS PRN tablet 08/04/19 [Rx] Albuterol Inhaler [Ventolin Hfa Inhaler] 2 puff INHALATION RT-QID PRN 10/02/19 [History] Promethaz-Cod 6.25-10 mg/5 ml [Phenergan with Codeine] 5 ml PO Q6HR PRN 10/02/19 [History] Escitalopram [Lexapro] 10 mg PO DAILY #10 tab 10/06/19 [Rx] Torsemide [Demadex] 40 mg PO DAILY #30 tab 10/06/19 [Rx] Loratadine [Claritin] 10 mg PO DAILY 12/09/19 [History] predniSONE [Deltasone] 20 mg PO BID 12/09/19 [History] LORazepam [Ativan] 0.5 mg PO BID PRN #10 tab 12/18/19 [Rx] Metoprolol Tartrate [Lopressor] 25 mg PO BID #0 tab 12/18/19 [Rx] polyethylene glycoL 3350 [Miralax] 17 gm PO HS PRN powd.pack 12/18/19 [Rx] Follow up Appointment(s)/Referral(s): Bandar Rich MD [STAFF PHYSICIAN] - 1 Week ([employer] - managing CLL and blood counts.) [facility] [NON-STAFF] - Radha Dooley MD [Primary Care Provider] - 1-2 days Alfredo Lockwood MD [REFERRING] - 1 Week ([employer] job titles) Elmer Gutierrez DO [STAFF PHYSICIAN] - 1 Week ([facility] - kidney specialist.) Bernard Zaragoza MD [STAFF PHYSICIAN] - 10 Days (Medical Management Trainer) Patient Instructions/Handouts: Acute Kidney Injury (DC), Chronic Lung Disease and Infection Prevention (DC), Hemodialysis for Acute Kidney Failure (DC) Activity/Diet/Wound Care/Special Instructions: Patient to discharge to SNF with haskins in place - maintain strict I/O Diet: Heart Health/renal/consistent carb with 1500 cc fluid restriction Hemodialysis - [facility] ([phone]; [facility] [place], [place]) Monday, , Monday. Start date 12/19/19 @1030, after first dialysis chair time will be 1045. Discharge Disposition: TRANSFER TO SNF/ECF
[2019-12-18] MEDS: EZETIMIBE 10 MG TAB PO SCH (09:13)
[2019-12-18] MEDS: CIPROFLOXACIN HCL 500 MG TAB PO SCH (09:13)
[2019-12-18] MEDS: SENNOSIDES 8.6 MG TAB PO SCH (09:13)
[2019-12-18] MEDS: ASPIRIN 81 MG PO SCH (09:13)
[2019-12-18] MEDS: METOPROLOL TARTRATE 25 MG TAB PO SCH (09:14)
[2019-12-18] MEDS: FUROSEMIDE 10 MG/ML 10 ML VIAL IV SCH (09:14)
[2019-12-18] MEDS: ESCITALOPRAM 10 MG TAB PO SCH (09:14)
[2019-12-18 09:15] VITALS: RESP 16; TEMP 98.9
[2019-12-18 11:27] VITALS: BP 129/60
[2019-12-18 11:49] LABS: Glucose,Whole Blood 147 mg/dL (75-99)
[2019-12-18 14:40] VITALS: BMI 29.0
[2019-12-18 15:09] VITALS: PULSE 90
--- NOTE | 2019-12-18 15:17 | PN ---
PROGRESS NOTE Patient is seen for followup for acute kidney injury. She remains hemodialysis dependent. Patient was dialyzed yesterday. However, she developed hypotension and dizziness post dialysis. She had about 3 L of fluid removed. I did give her 250 mL bolus last night. This morning she states she is feeling better. Blood pressure has improved to about 129 mmHg systolic. PHYSICAL EXAMINATION: Today, heart rate 80 per minute, blood pressure 129/60. Patient is afebrile. Examination of the heart S1, S2. Examination of the lungs, bilateral breath sounds are heard. Abdomen is soft, obese, nontender. Examination of the lower extremities shows much improvement in edema. CONSUMER LOAN PROCESSOR exam grossly intact. LABS: Not available from today. ASSESSMENT: 1. Acute kidney injury, hemodialysis dependent. Patient will continue with the Boggs catheter. We will monitor urine output and she will have dialysis on Monday as outpatient at [place]. 2. Hypotension, maintained on midodrine. 3. Volume overload, currently improved. 4. Urine retention currently with indwelling Boggs catheter will likely need to be removed at the rehab facility. 5. Chronic kidney disease stage 3 secondary to nephrosclerosis. Baseline creatinine 1- 1.5 mg/dL. 6. Hyperkalemia, currently resolved. 7. Moderate to severe tricuspid regurgitation and severe pulmonary hypertension. 8. Chronic lymphocytic leukemia. PLAN: Continue off dialysis until patient is dialyzed as outpatient on Monday. We will check labs prior to her hemodialysis treatment on Monday to assess recovery of renal function. MMODL / IJN: [id number] /
== END 2019-12-18 16:52 | DRG 291 ==
LOC: EC 01:04 → 2SICU 03:23 → 3SCARD 12-13 18:03
PROVIDERS: ADMIT Hospitalist; ATTEND Hospitalist
PROC: 5A09457 Assistance with Respiratory Ventilation, 24-96 Consecutive Hours, Continuous Positive Airway Pressure (ICD-10-PCS; principal; 2019-12-09)
PROC: 06HM33Z Insertion of Infusion Device into Right Femoral Vein, Percutaneous Approach (ICD-10-PCS; 2019-12-09)
PROC: 5A1D70Z Performance of Urinary Filtration, Intermittent, Less than 6 Hours Per Day (ICD-10-PCS; 2019-12-10)
PROC: 02HV33Z Insertion of Infusion Device into Superior Vena Cava, Percutaneous Approach (ICD-10-PCS; 2019-12-16)
DX: I13.2 Hypertensive heart and chronic kidney disease with heart failure and with stage 5 chronic kidney disease, or end stage renal disease (principal); I50.33 Acute on chronic diastolic (congestive) heart failure; J96.21 Acute and chronic respiratory failure with hypoxia; J96.22 Acute and chronic respiratory failure with hypercapnia; N17.0 Acute kidney failure with tubular necrosis; N18.5 Chronic kidney disease, stage 5; N39.0 Urinary tract infection, site not specified; C91.10 Chronic lymphocytic leukemia of B-cell type not having achieved remission; E87.2 Acidosis; G72.81 Critical illness myopathy; I27.29 Other secondary pulmonary hypertension; Z99.81 Dependence on supplemental oxygen; J44.9 Chronic obstructive pulmonary disease, unspecified; D53.9 Nutritional anemia, unspecified; D63.1 Anemia in chronic kidney disease; D69.6 Thrombocytopenia, unspecified; E03.9 Hypothyroidism, unspecified; E11.22 Type 2 diabetes mellitus with diabetic chronic kidney disease; E53.8 Deficiency of other specified B group vitamins; E66.01 Morbid (severe) obesity due to excess calories; Z68.29 Body mass index [BMI] 29.0-29.9, adult; E78.5 Hyperlipidemia, unspecified; E83.39 Other disorders of phosphorus metabolism; E83.42 Hypomagnesemia; E86.0 Dehydration; E87.5 Hyperkalemia; B96.89 Other specified bacterial agents as the cause of diseases classified elsewhere; H35.30 Unspecified macular degeneration; Z85.828 Personal history of other malignant neoplasm of skin; Z60.2 Problems related to living alone; Z81.1 Family history of alcohol abuse and dependence; Z82.49 Family history of ischemic heart disease and other diseases of the circulatory system; G47.33 Obstructive sleep apnea (adult) (pediatric); I08.1 Rheumatic disorders of both mitral and tricuspid valves; I25.10 Atherosclerotic heart disease of native coronary artery without angina pectoris; I44.0 Atrioventricular block, first degree; I48.0 Paroxysmal atrial fibrillation; Z79.02 Long term (current) use of antithrombotics/antiplatelets; Z79.82 Long term (current) use of aspirin; Z79.84 Long term (current) use of oral hypoglycemic drugs; Z79.890 Hormone replacement therapy; Z79.899 Other long term (current) drug therapy; Z87.891 Personal history of nicotine dependence; Z98.61 Coronary angioplasty status; R79.89 Other specified abnormal findings of blood chemistry; Z79.51 Long term (current) use of inhaled steroids
CPT/HCPCS: 36415; 36558; 51702; 71045; 71046; 76770; 76937; 77001; 80048; 80053; 81001; 82607; 82668; 82728; 82746; 82784; 82805; 83010; 83540; 83550; 83605; 83615; 83735; 83880; 83883; 83921; 84100; 84132; 84165; 84484; 84550; 85025; 85027; 85045; 85384; 85610; 85730; 86022; 86334; 86704; 86706; 87040; 87077; 87086; 87186; 87340; 90935; 93005; 93306; 94640; 94644; 94660; 96365; 96366; 96375; 99291

== ENCOUNTER 2020-01-07 13:14 | Inpatient (IN) | payer MEDICARE, BC ==
[2020-01-07] MEDS ORDERED: ASPIRIN 81 MG PO STA (13:35)
[2020-01-07] MEDS ORDERED: NITROGLYCERIN OINT 1 INCH/GM PACKET TOPICAL STA (13:35)
--- NOTE | 2020-01-07 13:43 | ED ---
General Adult HPI - General Chief complaint: Chest Pain Stated complaint: Chest tightness Time Seen by Provider: 01/07/20 13:15 Source: patient, EMS, RN notes reviewed, old records reviewed Mode of arrival: EMS Limitations: no limitations - History of Present Illness Initial comments: This is a 79-year-old female who has a past medical history significant for renal failure dialysis patient also has high blood pressure high cholesterol and has a previous coronary artery disease history. Patient states she's had 2 stents in the past. Patient comes in today because when she was at home she started having chest pain stated lasted about 2 hours until she was at the dialysis center. Patient states when she got there and he started dialysis and she told she had chest pain they sent her in immediately. Patient states since that time the pain is relieved. Patient states while she was having chest pain she was also short of breath. Patient denies any diaphoretic episodes. Patient denies any nausea. Patient denies any abdominal pain. Patient denies any recent fever chills or cough per patient denies any lightheadedness dizziness or near syncopal episode. Patient denies any increased swelling to her legs. Patient has any calf tenderness. - Related Data Home Medications Medication Instructions Recorded Confirmed Arformoterol Tartrate [Brovana] 15 mcg INHALATION RT-BID 10/03/16 12/09/19 Aspirin EC [Ecotrin Low Dose] 81 mg PO DAILY 10/03/16 12/09/19 Levothyroxine Sodium [Synthroid] 100 mcg PO DAILY 10/03/16 12/09/19 Multivitamins, Thera [Multivitamin 1 tab PO DAILY 10/03/16 12/09/19 (formulary)] Nitroglycerin Sl Tabs [Nitrostat] 0.4 mg SUBLINGUAL Q5M PRN 10/03/16 12/09/19 Omeprazole [PriLOSEC] 20 mg PO DAILY 10/03/16 12/09/19 Vit C/E/Zn/Coppr/Lutein/Zeaxan 1 cap PO BID 10/03/16 12/09/19 [Preservision Areds 2 Softgel] Atorvastatin [Lipitor] 40 mg PO HS 05/09/19 12/09/19 Budesonide [Pulmicort] 0.5 mg INHALATION RT-BID 05/09/19 12/09/19 Ezetimibe [Zetia] 10 mg PO DAILY 05/09/19 12/09/19 Levothyroxine Sodium [Synthroid] 50 mcg PO PADILLA 05/09/19 12/09/19 Yupelri 175mcg/3ml 175 mcg INHALATION RT-DAILY 05/09/19 12/09/19 Albuterol Inhaler [Ventolin Hfa 2 puff INHALATION RT-QID PRN 10/02/19 12/09/19 Inhaler] Promethaz-Cod 6.25-10 mg/5 ml 5 ml PO Q6HR PRN 10/02/19 12/09/19 [Phenergan with Codeine] Loratadine [Claritin] 10 mg PO DAILY 12/09/19 12/09/19 predniSONE [Deltasone] 20 mg PO BID 12/09/19 12/09/19 Previous Rx's Medication Instructions Recorded Clopidogrel [Plavix] 75 mg PO DAILY #30 tab 05/11/19 Isosorbide Mononitrate ER [Imdur] 30 mg PO DAILY #30 tab.er.24h 05/11/19 Melatonin 3 mg PO HS PRN tablet 08/04/19 Escitalopram [Lexapro] 10 mg PO DAILY #10 tab 10/06/19 Torsemide [Demadex] 40 mg PO DAILY #30 tab 10/06/19 LORazepam [Ativan] 0.5 mg PO BID PRN #10 tab 12/18/19 Metoprolol Tartrate [Lopressor] 25 mg PO BID #0 tab 12/18/19 polyethylene glycoL 3350 [Miralax] 17 gm PO HS PRN powd.pack 12/18/19 Allergies Allergy/AdvReac Type Severity Reaction Status Date / Time No Known Allergies Allergy Verified 12/09/19 12:25 Review of Systems ROS Statement: Those systems with pertinent positive or pertinent negative responses have been documented in the HPI. ROS Other: All systems not noted in ROS Statement are negative. Past Medical History Past Medical History: Cancer, Heart Failure, COPD, Hyperlipidemia, Hypertension, Sleep Apnea/CPAP/BIPAP, Thyroid Disorder Additional Past Medical History / Comment(s): CLL. sleep apnea. macular degeneration. Skin ca History of Any Multi-Drug Resistant Organisms: None Reported Past Surgical History: Heart Catheterization With Stent, Tonsillectomy Additional Past Surgical History / Comment(s): d & c Past Anesthesia/Blood Transfusion Reactions: No Reported Reaction Date of Last Stent Placement:: 2007 Past Psychological History: No Psychological Hx Reported Smoking Status: Former smoker Past Alcohol Use History: Daily Past Drug Use History: None Reported - Past Family History Mother Family Medical History: Congestive Heart Failure (CHF) Father Family Medical History: No Reported History Additional Family Medical History / Comment(s): "Alcohol problems" Chirrosis General Exam - General Exam Comments Initial Comments: GENERAL: Patient is well-developed and well-nourished. Patient is nontoxic and well- hydrated and is in mild distress. ENT: Neck is soft and supple. No significant lymphadenopathy is noted. Oropharynx is clear. Moist mucous membranes. Neck has full range of motion without eliciting any pain. EYES: The sclera were anicteric and conjunctiva were pink and moist. Extraocular movements were intact and pupils were equal round and reactive to light. Eyelids were unremarkable. PULMONARY: Unlabored respirations. Good breath sounds bilaterally. No audible rales rhonchi or wheezing was noted. CARDIOVASCULAR: There is a regular rate and rhythm without any murmurs gallops or rubs. ABDOMEN: Soft and nontender with normal bowel sounds. SKIN: Skin is clear with no lesions or rashes and otherwise unremarkable. NEUROLOGIC: Patient is alert and oriented x3. Cranial nerves II through XII are grossly intact. Motor and sensory are also intact. Normal speech, volume and content. Symmetrical smile. MUSCULOSKELETAL: Normal extremities with adequate strength and full range of motion. LYMPHATICS: No significant lymphadenopathy is noted PSYCHIATRIC: Normal psychiatric evaluation. Limitations: no limitations Course Vital Signs 01/07/20 13:16 Temperature 98.1 F Pulse Rate 92 Respiratory 17 Rate Blood Pressure 102/54 O2 Sat by Pulse 95 Oximetry Medical Decision Making - Medical Decision Making EKG shows normal sinus rhythm at 92 bpm TX interval 286 QRS is 82 QT interval 374 QTC is 462 per patient's EKG shows no ST segment elevation. Patient elevated troponin but she remained chest pain-free throughout the ER visit. I started the patient on heparin. I spoke with Dr. Gold he agreed to admit the patient admitted the patient I consult cardiology I wrote admitting orders. - Lab Data Result diagrams: 01/07/20 13:38 01/07/20 13:38 Lab Results 01/07/20 01/07/20 01/07/20 Range/Units 13:38 13:38 13:38 WBC 19.6 H (3.8-10.6) k/uL RBC 2.76 L (3.80-5.40) m/uL Hgb 9.1 L D (11.4-16.0) gm/dL Hct 30.3 L (34.0-46.0) % MCV 109.9 H D (80.0-100.0) fL MCH 33.1 (25.0-35.0) pg MCHC 30.1 L (31.0-37.0) g/dL RDW 14.3 (11.5-15.5) % Plt Count 141 L D (150-450) k/uL Neutrophils % 31 % Lymphocytes % 61 % Monocytes % 3 % Eosinophils % 1 % Basophils % 1 % Neutrophils # 6.1 (1.3-7.7) k/uL Lymphocytes # 11.9 H (1.0-4.8) k/uL Monocytes # 0.7 (0-1.0) k/uL Eosinophils # 0.1 (0-0.7) k/uL Basophils # 0.1 (0-0.2) k/uL Manual Slide Review Performed Hypochromasia Marked Poikilocytosis (manual Present Macrocytosis Marked A PT 9.8 (9.0-12.0) sec INR 0.9 (<1.2) APTT 24.2 (22.0-30.0) sec Sodium 135 L (137-145) mmol/L Potassium 4.3 (3.5-5.1) mmol/L Chloride 97 L (98-107) mmol/L Carbon Dioxide 38 H (22-30) mmol/L Anion Gap 0 mmol/L BUN 30 H (7-17) mg/dL Creatinine 2.12 H (0.52-1.04) mg/dL Est GFR (CKD-EPI)AfAm 25 (>60 ml/min/1.73 sqM) Est GFR (CKD-EPI)NonAf 22 (>60 ml/min/1.73 sqM) Glucose 99 (74-99) mg/dL Calcium 8.6 (8.4-10.2) mg/dL Magnesium 1.4 L (1.6-2.3) mg/dL Total Bilirubin 0.7 (0.2-1.3) mg/dL AST 22 (14-36) U/L ALT 11 (4-34) U/L Alkaline Phosphatase 68 (38-126) U/L Troponin I (0.000-0.034) ng/mL Total Protein 5.6 L (6.3-8.2) g/dL Albumin 3.2 L (3.5-5.0) g/dL 01/07/20 Range/Units 13:38 WBC (3.8-10.6) k/uL RBC (3.80-5.40) m/uL Hgb (11.4-16.0) gm/dL Hct (34.0-46.0) % MCV (80.0-100.0) fL MCH (25.0-35.0) pg MCHC (31.0-37.0) g/dL RDW (11.5-15.5) % Plt Count (150-450) k/uL Neutrophils % % Lymphocytes % % Monocytes % % Eosinophils % % Basophils % % Neutrophils # (1.3-7.7) k/uL Lymphocytes # (1.0-4.8) k/uL Monocytes # (0-1.0) k/uL Eosinophils # (0-0.7) k/uL Basophils # (0-0.2) k/uL Manual Slide Review Hypochromasia Poikilocytosis (manual Macrocytosis PT (9.0-12.0) sec INR (<1.2) APTT (22.0-30.0) sec Sodium (137-145) mmol/L Potassium (3.5-5.1) mmol/L Chloride (98-107) mmol/L Carbon Dioxide (22-30) mmol/L Anion Gap mmol/L BUN (7-17) mg/dL Creatinine (0.52-1.04) mg/dL Est GFR (CKD-EPI)AfAm (>60 ml/min/1.73 sqM) Est GFR (CKD-EPI)NonAf (>60 ml/min/1.73 sqM) Glucose (74-99) mg/dL Calcium (8.4-10.2) mg/dL Magnesium (1.6-2.3) mg/dL Total Bilirubin (0.2-1.3) mg/dL AST (14-36) U/L ALT (4-34) U/L Alkaline Phosphatase (38-126) U/L Troponin I 0.150 H* (0.000-0.034) ng/mL Total Protein (6.3-8.2) g/dL Albumin (3.5-5.0) g/dL Critical Care Time Critical Care Time: Yes Total Critical Care Time: 35 Disposition Clinical Impression: Unstable angina pectoris Disposition: ADMITTED IP TO THIS HOSP Referrals: Radha Dooley MD [Primary Care Provider] - 1-2 days Time of Disposition: 15:04
--- NOTE | 2020-01-07 14:12 | XR ---
EXAMINATION TYPE: XR chest 2V DATE OF EXAM: 01/07/2020 COMPARISON: Prior chest x-ray 12/17/[address] 11/06/2019 HISTORY: Chest pain TECHNIQUE: Frontal and lateral views of the chest are obtained. FINDINGS: There is blunting the posterior costophrenic angles. Prominent lung volumes suggest underl xena COPD. The heart remains enlarged, there are coronary artery calcifications. Right jugular centra l venous catheter is stable. There is no evident pneumothorax. Biapical pleural thickening is stable. The aorta is dense and aneurysmal. IMPRESSION: Cardiomegaly with small basilar effusions, coronary artery disease, aortic aneurysm and additional findings above..
[2020-01-07 14:19] LABS: Albumin 3.2 g/dL (3.5-5.0); Calcium 8.6 mg/dL (8.4-10.2); Magnesium 1.4 mg/dL (1.6-2.3); Potassium 4.3 mmol/L (3.5-5.1); Total Bilirubin 0.7 mg/dL (0.2-1.3); Total Protein 5.6 g/dL (6.3-8.2)
[2020-01-07 14:22] LABS: Basophils # (A) 0.1 k/uL (0-0.2); Basophils % (A) 1 %; Eosinophils # (A) 0.1 k/uL (0-0.7); Eosinophils % (A) 1 %; HCT 30.3 % (34.0-46.0); Hypochromasia Marked; Lymphocytes # (A) 11.9 k/uL (1.0-4.8); Lymphocytes % (A) 61 %; MCH 33.1 pg (25.0-35.0); MCHC 30.1 g/dL (31.0-37.0); Macrocytosis Marked; Mean Platelet Volume 8.2; Monocytes # (A) 0.7 k/uL (0-1.0); Monocytes % (A) 3 %; Neutrophils # (A) 6.1 k/uL (1.3-7.7); Neutrophils % (A) 31 %; RBC 2.76 m/uL (3.80-5.40); RDW 14.3 % (11.5-15.5); WBC 19.6 k/uL (3.8-10.6)
[2020-01-07 14:26] LABS: INR 0.9 (<1.2); Partial Thromboplastin Time 24.2 sec (22.0-30.0); Prothrombin Time 9.8 sec (9.0-12.0)
[2020-01-07 14:31] LABS: HGB 9.1 gm/dL (11.4-16.0); MCV 109.9 fL (80.0-100.0); Platelet Count 141 k/uL (150-450)
[2020-01-07] MEDS ORDERED: HEPARIN SODIUM,PORCINE 5,000 UNIT/ML 1 ML VIAL IV ONE (14:42)
[2020-01-07 14:48] LABS: Poikilocytosis (M) Present
[2020-01-07] MEDS ORDERED: NITROGLYCERIN SL TABS 0.4 MG TAB SUBLINGUAL PRN (15:05)
[2020-01-07] MEDS: HEPARIN SOD,PORK IN 0.45% NACL 25,000 UNIT in 0.45% NACL 1 250ML.BAG IV SCH (15:20)
[2020-01-07] MEDS: NITROGLYCERIN OINT 1 INCH/GM PACKET TOPICAL SCH ×2 (19:36→23:11)
[2020-01-07] MEDS ORDERED: LORATADINE 10 MG TAB PO PRN (21:24)
[2020-01-07] MEDS: predniSONE 20 MG TAB PO SCH (21:45)
[2020-01-07] MEDS: METOPROLOL TARTRATE 25 MG TAB PO SCH (21:57)
[2020-01-07] MEDS: ATORVASTATIN 40 MG TAB PO SCH (21:57)
--- NOTE | 2020-01-07 22:33 | P.HPIM ---
History of Present Illness H&P Date: 01/07/20 Chief Complaint: Chest pressure History of presenting complaint: This is a very pleasant 79-year-old patient of Dr. Steph Dooley. Chronic stable medical conditions include hyperlipidemia, hypertension, obstructive sleep apnea does not use a CPAP machine, hypothyroid, CLL, macular degeneration, coronary artery disease with stent/2008. Home oxygen 4-5 L. . Patient was at home when she developed chest pressure gradient across the chest. [place] like a tightness. Lasted for a few hours. She decided any to proceed with hemodialysis. During the hemodialysis the pressure became worse. There is no dizziness nor lightheadedness some shortness of breath. Admitted unstable angina. Patient has known coronary artery disease with stents. Review of systems: GEN.: Tired EYES: None HEENT: None NECK: None RESPIRATORY: As above CARDIOVASCULAR: As above GASTROINTESTINAL: None GENITOURINARY: None MUSCULOSKELETAL: Joint pains LYMPHATICS: None HEMATOLOGICAL: None PSYCHIATRY: Slightly anxious NEUROLOGICAL: None Past medical history to include: COPD, CHF, hyperlipidemia, hypertension, obstructive sleep apnea does not use CPAP, hypothyroid, CLL, macular degeneration, skin cancer, coronary artery disease with stent, home oxygen 4 L Social history: Does smoke in the past. No alcohol. Lives alone. Does use a cane Physical examination: VITAL SIGNS: 98.1, 92, 17, 102/54, 95% on 4 L-upon presentation GENERAL: BMI 30.9, laying in bed, bit tired EYES: Pupils equal. Conjunctiva normal. HEENT: External appearance of nose and ears normal, oral cavity grossly normal. NECK: JVD unable to assess masses not palpable. HEART: First and second heart sounds are normal; mild edema present LUNGS: Respiratory rate increased, decreased breath sounds ABDOMEN: Soft, nontender, liver spleen not palpable, no masses palpable. PSYCH: Alert and oriented x3; mood and affect normal. NEUROLOGICAL: Cranial nerves grossly intact; no facial asymmetry, power and sensation grossly intact. LYMPHATICS: No lymph nodes palpable in the axilla and neck MUSCULAR skeletal: Evidence of OA Investigations: White count 98.6 hemoglobin 9.1 platelets 141 potassium 4.3 bun 30 creatinine 2.12 Troponin I 0.150, 0.156, 0.155 EKG tracing personally reviewed by me-sinus rhythm with ST segment changes patient in anterior leads Chest x-ray film personally reviewed by me-cardiomegaly, hyperinflation 2-D echocardiogram [December 2019]-shows moderate concentric LVH and EF of 50-55% %, moderate to severe tricuspid regurgitation, severe pulmonary hypertension Assessment: -Unstable angina in a patient with known coronary artery disease - COPD in an ex-smoker -Chronic congestive heart failure exacerbation from diastolic dysfunction EF 50- 55% % from underlying coronary artery disease -chronic hypoxic respiratory failure, improved -Moderate to severe tricuspid regurgitation, non-rheumatic -Secondary severe pulmonary hypertension -Essential hypertension -Diabetes mellitus II, uncontrolled with hyperglycemia -Hyperlipidemia -Hypothyroid -CLL -Chronic macular degeneration -Coronary artery disease with prior history of stent -Obesity BMI 32.6 -Chronic gait dysfunction uses a cane -Chronic kidney disease stage III -Depression not otherwise specified Plan: Home medications resumed. Patient put on Nitropaste, IV heparin. Cardiac nephrology nephrology consulted. Serial cardiac enzymes and place. Care was discussed with the patient question also. Past Medical History Past Medical History: Cancer, Heart Failure, COPD, Hyperlipidemia, Hypertension, Sleep Apnea/CPAP/BIPAP, Thyroid Disorder Additional Past Medical History / Comment(s): CLL. sleep apnea. macular degeneration. Skin ca History of Any Multi-Drug Resistant Organisms: None Reported Past Surgical History: Heart Catheterization With Stent, Tonsillectomy Additional Past Surgical History / Comment(s): d & c Past Anesthesia/Blood Transfusion Reactions: No Reported Reaction Date of Last Stent Placement:: 2007 Past Psychological History: No Psychological Hx Reported Smoking Status: Former smoker Past Alcohol Use History: Daily Additional Past Alcohol Use History / Comment(s): pt states she drinks 1-2 glasses of wine daily Past Drug Use History: None Reported - Past Family History Mother Family Medical History: Congestive Heart Failure (CHF) Father Family Medical History: No Reported History Additional Family Medical History / Comment(s): "Alcohol problems" Chirrosis Medications and Allergies Home Medications Medication Instructions Recorded Confirmed Type Arformoterol Tartrate [Brovana] 15 mcg INHALATION RT-BID 10/03/16 01/07/20 History Aspirin EC [Ecotrin Low Dose] 81 mg PO DAILY 10/03/16 01/07/20 History Levothyroxine Sodium [Synthroid] 100 mcg PO DAILY 10/03/16 01/07/20 History Multivitamins, Thera [Multivitamin 1 tab PO DAILY 10/03/16 01/07/20 History (formulary)] Nitroglycerin Sl Tabs [Nitrostat] 0.4 mg SUBLINGUAL Q5M PRN 10/03/16 01/07/20 History Omeprazole [PriLOSEC] 20 mg PO DAILY 10/03/16 01/07/20 History Vit C/E/Zn/Coppr/Lutein/Zeaxan 1 cap PO BID 10/03/16 01/07/20 History [Preservision Areds 2 Softgel] Atorvastatin [Lipitor] 40 mg PO HS 05/09/19 01/07/20 History Budesonide [Pulmicort] 0.5 mg INHALATION RT-BID 05/09/19 01/07/20 History Ezetimibe [Zetia] 10 mg PO DAILY 05/09/19 01/07/20 History Levothyroxine Sodium [Synthroid] 50 mcg PO PADILLA 05/09/19 01/07/20 History Yupelri 175mcg/3ml 175 mcg INHALATION RT-DAILY 05/09/19 01/07/20 History Clopidogrel [Plavix] 75 mg PO DAILY #30 tab 05/11/19 01/07/20 Rx Isosorbide Mononitrate ER [Imdur] 30 mg PO DAILY #30 tab.er.24h 05/11/19 01/07/20 Rx Albuterol Inhaler [Ventolin Hfa 2 puff INHALATION RT-QID PRN 10/02/19 01/07/20 History Inhaler] Promethaz-Cod 6.25-10 mg/5 ml 5 ml PO Q6HR PRN 10/02/19 01/07/20 History [Phenergan with Codeine] Escitalopram [Lexapro] 10 mg PO DAILY #10 tab 10/06/19 01/07/20 Rx Torsemide [Demadex] 40 mg PO DAILY #30 tab 10/06/19 01/07/20 Rx Loratadine [Claritin] 10 mg PO DAILY PRN 12/09/19 01/07/20 History predniSONE [Deltasone] 20 mg PO BID 12/09/19 01/07/20 History LORazepam [Ativan] 0.5 mg PO BID PRN #10 tab 12/18/19 01/07/20 Rx Metoprolol Tartrate [Lopressor] 25 mg PO BID #0 tab 12/18/19 01/07/20 Rx polyethylene glycoL 3350 [Miralax] 17 gm PO HS PRN powd.pack 12/18/19 01/07/20 Rx Allergies Allergy/AdvReac Type Severity Reaction Status Date / Time No Known Allergies Allergy Verified 01/07/20 15:08 Physical Exam Vitals: Vital Signs Temp Pulse Pulse Resp BP BP Pulse Ox 01/07/20 21:09 98.5 F 107 H 20 100/57 89 L 01/07/20 19:44 89 L 01/07/20 19:37 97.8 F 116 H 18 131/68 70 L 01/07/20 17:00 90 109/59 91 L 01/07/20 16:30 86 107/60 91 L 01/07/20 16:00 87 102/59 92 L 01/07/20 15:30 86 109/57 91 L 01/07/20 15:00 88 100/55 87 L 01/07/20 14:30 89 113/64 86 L 01/07/20 14:00 114/61 83 L 01/07/20 13:30 92 102/54 90 L 01/07/20 13:23 94 102/54 01/07/20 13:16 98.1 F 92 17 102/54 95 Intake and Output 01/07/20 01/07/20 01/07/20 06:59 14:59 22:59 Intake Total 58.461 Balance 58.461 Intake: Intake, IV Titration 58.461 Amount Heparin Sod,Pork in 0.45% 58.461 NaCl 25,000 unit In 0.45 % NaCl 1 250ml.bag @ 12 UNITS/KG/HR 9.798 mls/hr IV .Q24H [facility] Rx#: [id number] Other: Weight 81.647 kg 81.647 kg Results CBC & Chem 7: 01/07/20 13:38 01/07/20 13:38 Labs: Abnormal Lab Results - Last 24 Hours (Table) 01/07/20 01/07/20 01/07/20 Range/Units 13:38 13:38 13:38 WBC 19.6 H (3.8-10.6) k/uL RBC 2.76 L (3.80-5.40) m/uL Hgb 9.1 L D (11.4-16.0) gm/dL Hct 30.3 L (34.0-46.0) % MCV 109.9 H D (80.0-100.0) fL MCHC 30.1 L (31.0-37.0) g/dL Plt Count 141 L D (150-450) k/uL Lymphocytes # 11.9 H (1.0-4.8) k/uL Macrocytosis Marked A APTT (22.0-30.0) sec Sodium 135 L (137-145) mmol/L Chloride 97 L (98-107) mmol/L Carbon Dioxide 38 H (22-30) mmol/L BUN 30 H (7-17) mg/dL Creatinine 2.12 H (0.52-1.04) mg/dL Magnesium 1.4 L (1.6-2.3) mg/dL Troponin I 0.150 H* (0.000-0.034) ng/mL Total Protein 5.6 L (6.3-8.2) g/dL Albumin 3.2 L (3.5-5.0) g/dL 01/07/20 01/07/20 01/07/20 Range/Units 16:36 20:22 20:22 WBC (3.8-10.6) k/uL RBC (3.80-5.40) m/uL Hgb (11.4-16.0) gm/dL Hct (34.0-46.0) % MCV (80.0-100.0) fL MCHC (31.0-37.0) g/dL Plt Count (150-450) k/uL Lymphocytes # (1.0-4.8) k/uL Macrocytosis APTT 39.7 H (22.0-30.0) sec Sodium (137-145) mmol/L Chloride (98-107) mmol/L Carbon Dioxide (22-30) mmol/L BUN (7-17) mg/dL Creatinine (0.52-1.04) mg/dL Magnesium (1.6-2.3) mg/dL Troponin I 0.156 H* 0.155 H* (0.000-0.034) ng/mL Total Protein (6.3-8.2) g/dL Albumin (3.5-5.0) g/dL Thrombosis Risk Factor Assmnt - Choose All That Apply Any of the Below Risk Factors Present?: Yes Each Factor Represents 1 point: Abnormal pulmonary function (COPD), Obesity (BMI >25), Swollen legs (current) Other Risk Factors: Yes Each Risk Factor Represents 3 Points: Age 75 years or older Thrombosis Risk Factor Assessment Total Risk Factor Score: 6 Thrombosis Risk Factor Assessment Level: High Risk
[2020-01-08 04:17] LABS: Cholesterol 128 mg/dL (<200); HDL Cholesterol 49 mg/dL (40-60); LDL Cholesterol,Calculated 51 mg/dL (0-99); Triglycerides 138 mg/dL (<150)
[2020-01-08] MEDS: PANTOPRAZOLE 40 MG TABLET PO SCH (06:38)
[2020-01-08] MEDS: LEVOTHYROXINE 100 MCG TAB PO SCH (06:38)
[2020-01-08] MEDS: NITROGLYCERIN OINT 1 INCH/GM PACKET TOPICAL SCH ×4 (06:38→23:28)
[2020-01-08] MEDS: ALBUTEROL NEBULIZED 2.5 MG/3 ML INHALATION PRN ×4 (08:21→22:32)
[2020-01-08] MEDS: FORMOTEROL FUMARATE 20 MCG/2 ML NEBU INHALATION SCH ×2 (08:21→22:32)
[2020-01-08] MEDS: BUDESONIDE 0.5 MG/2 ML NEBU INHALATION SCH ×2 (08:21→22:32)
[2020-01-08] MEDS ORDERED: ISOSORBIDE MONONITRATE ER 30 MG TAB.ER.24H PO SCH (09:00)
[2020-01-08] MEDS ORDERED: ASPIRIN 325 MG TAB PO SCH (09:00)
--- NOTE | 2020-01-08 09:23 | CONS ---
CONSULTATION This is a 79-year-old lady with history of end-stage renal disease on hemodialysis, coronary artery disease, status post prior angioplasty, hypothyroidism, hypertension, and COPD who comes to hospital complaining of chest pain. She describes it as a mild to moderate intensity precordial chest pressure, came on at rest without definite radiation to neck, arm or back. There was mild shortness of breath without any diaphoresis. Patient was having dialysis when this pain started. She was given sublingual nitroglycerin following which she became chest pain free. Patient has known CAD and has had two prior angioplasties and the last one was in 2008. She follows with a shrimper from [facility] in [place], has a primary care physician in [place]. At the time of my evaluation this morning, she is pain free, hemodynamically stable and in no apparent distress. EKG shows sinus rhythm with nonspecific ST-T wave changes. These changes were noted on a prior EKG at last admission. Three sets of troponins are mildly elevated without any definite pattern to it, probably related to the renal failure. Patient was admitted to the hospital in the recent past with renal failure and CHF exacerbations and an echocardiogram done at the beginning of last month showed normal LV systolic function I talked to patient about her symptoms, the troponin and talked to her about her treatment options. I advised her to undergo cardiac catheterization for further evaluation. Understanding risks, benefits, she wishes to continue with optimal medical therapy and wishes to avoid invasive procedures. I will continue her on heparin for another 24 hours, increase dose of nitrates, continue the beta blockers, statins, aspirin, Plavix that she is currently. PAST MEDICAL HISTORY: Significant for CAD, status post angioplasty, COPD, end-stage renal disease on hemodialysis, hypothyroidism, hypertension. MEDICATIONS: At home include Synthroid, Ventolin, Demadex, Prilosec, Lopressor 25 b.i.d., Imdur, Zetia, Lexapro, Plavix, Pulmicort, Lipitor and Brovana. ALLERGIES: There are no known drug allergies. FAMILY HISTORY: Negative for premature coronary artery disease. SOCIAL HISTORY: Negative for current smoking, EtOH abuse, or drug abuse. REVIEW OF SYSTEMS: HEENT: Unremarkable. CARDIAC: As described above. RESPIRATORY: As described above. GI: Negative. GENITOURINARY: Significant for end-stage renal disease on hemodialysis. PSYCHOSOCIAL: Negative. ENDOCRINE: Negative. HEMATOLOGIC: Negative. DERM: Negative. CONSTITUTIONAL: Negative. ONCOLOGICAL: Negative. GIFT OFFICER: Negative. Rest of the system review is not relevant. PHYSICAL EXAMINATION: On exam, patient is afebrile. Heart rate is 89 beats per minute. Blood pressure is 120/75, respiratory rate is 18. O2 saturation is 89% on 5 L. There is no jugular venous distention. Carotid upstroke is normal. There is no bruit. Chest exam reveals good air entry bilaterally. I do not hear any crackles or rhonchi. Heart exam reveals first and second heart sounds. An S4 is heard. Abdomen is soft. Exam of the extremities did not reveal any edema. Peripheral pulses are felt. LABS: Show that the white cell count is elevated at 19.6, hemoglobin is 9.1, potassium is 4.3, BUN is 30, creatinine is 2.1. Troponins are at 0.15, 0.15 and 0.15. LDL cholesterol is 51. EKG is as described above. A recent echocardiogram showed normal LV function. ASSESSMENT: Unstable angina. PLAN: Patient is chest pain free this morning, opted for medical therapy. I will increase the dose of Imdur, leave her on heparin for another day. I will stop the heparin tomorrow, ambulate her and if she is doing well, discharge her home tomorrow evening or the day after and she will follow up with her own shrimper. GAYLE / YON: [id number] /
[2020-01-08] MEDS: predniSONE 20 MG TAB PO SCH ×2 (09:49→20:15)
[2020-01-08] MEDS: MULTIVITAMINS, THERA 1 EACH TAB PO SCH (09:49)
[2020-01-08] MEDS: METOPROLOL TARTRATE 25 MG TAB PO SCH ×2 (09:49→20:15)
[2020-01-08] MEDS: ISOSORBIDE MONONITRATE ER 60 MG TAB.ER.24H PO SCH (09:49)
[2020-01-08] MEDS: EZETIMIBE 10 MG TAB PO SCH (09:49)
[2020-01-08] MEDS: TORSEMIDE 20 MG TAB PO SCH (09:49)
[2020-01-08] MEDS: ASPIRIN 81 MG PO SCH (09:49)
[2020-01-08] MEDS: CLOPIDOGREL 75 MG TAB PO SCH (09:50)
[2020-01-08] MEDS: ESCITALOPRAM 10 MG TAB PO SCH (09:50)
--- NOTE | 2020-01-08 12:23 | CONS ---
CONSULTATION REASON FOR CONSULT: Hemodialysis-dependent renal failure. HISTORY OF PRESENT ILLNESS: Patient is a 79-year-old female who developed acute kidney injury and has been hemodialysis dependent since her last admission in December. Patient is maintained on a Monday, , Monday schedule at the [facility]. She states she has had increased urine output. She was admitted to the hospital with complaints of chest pain which occurred during dialysis yesterday and therefore patient had only about an hour of treatment. She denies any chest pains currently. No significant shortness of breath. No nausea, vomiting, abdominal pain or diarrhea. Serum creatinine was 2.1 mg/dL. Chest x-ray this admission on 01/06 showed cardiomegaly with small basilar pleural effusions. PAST MEDICAL HISTORY: Recent acute kidney injury, hemodialysis dependent renal failure, coronary artery disease, hypothyroidism, hypertension, history of COPD, CHF, obstructive sleep apnea, macular degeneration. PAST SURGICAL HISTORY: Cardiac catheterization, coronary stent placement, tonsillectomy, PermCath placement for dialysis on her last admission last month. SOCIAL HISTORY: Negative for smoking, drug abuse or alcohol abuse. MEDICATIONS: Prior to admission included aspirin, Synthroid, Prilosec, Lipitor, Pulmicort, Zetia, Claritin, prednisone, Plavix, Imdur, Lexapro, Demadex, Ativan, Lopressor, MiraLAX. ALLERGIES: None. REVIEW OF SYSTEMS: As per HPI. Other systems negative. PHYSICAL EXAMINATION: Patient is comfortable, awake, she is not in any acute distress. Alert, oriented x3. Blood pressure is 123/79, heart rate 89 per minute, she is afebrile. Examination of the heart S1, S2. Examination of the lungs, bilateral breath sounds are heard. Abdomen is soft, nontender. Examination of the lower extremities shows chronic skin changes. Trace edema noted bilaterally. [employer] exam grossly intact. LABS: Show sodium 135, potassium 4.3, chloride 97, CO2 is 38, BUN of 30, hemoglobin 9.1 g/dL. Troponin 0.155. ASSESSMENT: 1. Acute kidney injury, hemodialysis dependent renal failure, maintained on a Monday, , Monday schedule. Since last admission about a month ago, patient's urine output has improved. Her creatinine is not significantly elevated. However, she has some volume overload and I will arrange for hemodialysis treatment tomorrow. In the meantime, we will continue to monitor for recovery of renal function. 2. Chest pains, being followed by Cardiology. Troponin borderline elevated at 0.15. 3. Urine retention from last admission, currently without Boggs catheter. 4. CKD. Previous creatinine 1-1.5 prior to starting dialysis, stage III, secondary to nephrosclerosis. 5. Moderate to severe tricuspid regurgitation and severe pulmonary hypertension. 6. Chronic lymphocytic leukemia. PLAN: Hemodialysis in a.m. Continue to monitor for recovery of renal function. Check BMP in a.m. prior to dialysis. Monitor for urine retention. Thank you for this consultation. Will continue to follow the patient with you during her hospitalization. MMODL / IJN: [id number] /
[2020-01-08] MEDS: HEPARIN SOD,PORK IN 0.45% NACL 25,000 UNIT in 0.45% NACL 1 250ML.BAG IV SCH (13:04)
[2020-01-08 17:34] LABS: Glucose,Whole Blood 287 mg/dL (75-99)
[2020-01-08] MEDS: LORazepam 0.5 MG TAB PO PRN (17:46)
[2020-01-08] MEDS: polyethylene glycoL 3350 17 GM POWD.PACK PO PRN (17:46)
[2020-01-08 18:06] LABS: Basophils # (A) 0.1 k/uL (0-0.2); Basophils % (A) 0 %; Eosinophils % (A) 0 %; HCT 28.7 % (34.0-46.0); HGB 8.4 gm/dL (11.4-16.0); Hypochromasia Marked; Lymphocytes # (A) 11.4 k/uL (1.0-4.8); Lymphocytes % (A) 64 %; MCHC 29.4 g/dL (31.0-37.0); MCV 112.2 fL (80.0-100.0); Macrocytosis Marked; Mean Platelet Volume 8.1; Monocytes # (A) 0.2 k/uL (0-1.0); Monocytes % (A) 1 %; Neutrophils # (A) 5.7 k/uL (1.3-7.7); Neutrophils % (A) 32 %; Platelet Count 146 k/uL (150-450); RBC 2.56 m/uL (3.80-5.40); RDW 14.2 % (11.5-15.5); WBC 17.9 k/uL (3.8-10.6)
[2020-01-08 19:08] LABS: Calcium 8.4 mg/dL (8.4-10.2); Magnesium 1.4 mg/dL (1.6-2.3); Potassium 4.6 mmol/L (3.5-5.1)
[2020-01-08] MEDS: ATORVASTATIN 40 MG TAB PO SCH (20:15)
[2020-01-08 22:26] LABS: Hepatitis B Surface AB- Quant 107.1 mIU/mL; Hepatitis B Surface Antibody Reactive (Non-Reactive); Hepatitis B Surface Antigen Non-Reactive (Non-Reactive)
--- NOTE | 2020-01-08 23:17 | P.PN ---
Progress Note - Text Progress Note Date: 01/08/20 Chief Complaint: Chest pressure History of presenting complaint: This is a very pleasant 79-year-old patient of Dr. Steph Dooley. Chronic stable medical conditions include hyperlipidemia, hypertension, obstructive sleep apnea does not use a CPAP machine, hypothyroid, CLL, macular degeneration, coronary artery disease with stent/2008. Home oxygen 4-5 L. . Patient was at home when she developed chest pressure gradient across the chest. [place] like a tightness. Lasted for a few hours. She decided any to proceed with hemodialysis. During the hemodialysis the pressure became worse. There is no dizziness nor lightheadedness some shortness of breath. Admitted unstable angina. Patient has known coronary artery disease with stents. Admitted unstable angina. Started IV heparin. Today-no further chest pain. Seen by cardiology. Nitrates added. Feeling better. Review of systems: Was done for constitutional, cardiovascular, GI, pulmonary. relevant finding as above Active Medications Albuterol Sulfate (Albuterol Nebulized 2.5 Mg/3 Ml) 2.5 mg INHALATION RT-QID PRN PRN Reason: Shortness Of Breath Last Admin: 01/08/20 22:32 Dose: 2.5 mg Documented by: Aspirin (Aspirin 81 Mg) 81 mg PO DAILY [facility] Last Admin: 01/08/20 09:49 Dose: 81 mg Documented by: Atorvastatin Calcium (Atorvastatin 40 Mg Tab) 40 mg PO HS [facility] Last Admin: 01/08/20 20:15 Dose: 40 mg Documented by: Budesonide (Budesonide 0.5 Mg/2 Ml Nebu) 0.5 mg INHALATION RT-BID [facility] Last Admin: 01/08/20 22:32 Dose: 0.5 mg Documented by: Clopidogrel Bisulfate (Clopidogrel 75 Mg Tab) 75 mg PO DAILY [facility] Last Admin: 01/08/20 09:50 Dose: 75 mg Documented by: Ezetimibe (Ezetimibe 10 Mg Tab) 10 mg PO DAILY [facility] Last Admin: 01/08/20 09:49 Dose: 10 mg Documented by: Escitalopram Oxalate (Escitalopram 10 Mg Tab) 10 mg PO DAILY [facility] Last Admin: 01/08/20 09:50 Dose: 10 mg Documented by: Formoterol Fumarate (Formoterol Fumarate 20 Mcg/2 Ml Nebu) 20 mcg INHALATION RT-BID [facility] Last Admin: 01/08/20 22:32 Dose: 20 mcg Documented by: Heparin Sodium/Sodium Chloride (25,000 unit/ Sodium Chloride) 250 mls @ 9.798 mls/hr IV .Q24H [facility]; Protocol Last Admin: 01/08/20 13:04 Dose: 16 units/kg/hr, 13.064 mls/hr Documented by: Isosorbide Mononitrate (Isosorbide Mononitrate Er 60 Mg Tab.Er.24h) 60 mg PO DAILY [facility] Last Admin: 01/08/20 09:49 Dose: 60 mg Documented by: Levothyroxine Sodium (Levothyroxine 100 Mcg Tab) 50 mcg PO Rios@0630 [facility] Levothyroxine Sodium (Levothyroxine 100 Mcg Tab) 100 mcg PO DAILY@0630 [facility] Last Admin: 01/08/20 06:38 Dose: 100 mcg Documented by: Loratadine (Loratadine 10 Mg Tab) 10 mg PO DAILY PRN PRN Reason: Allergy Symptoms Lorazepam (Lorazepam 0.5 Mg Tab) 0.5 mg PO BID PRN PRN Reason: Anxiety Last Admin: 01/08/20 17:46 Dose: 0.5 mg Documented by: Metoprolol Tartrate (Metoprolol Tartrate 25 Mg Tab) 25 mg PO BID [facility] Last Admin: 01/08/20 20:15 Dose: 25 mg Documented by: Multivitamins (Multivitamins, Thera 1 Each Tab) 1 each PO DAILY [facility] Last Admin: 01/08/20 09:49 Dose: 1 each Documented by: Nitroglycerin (Nitroglycerin Sl Tabs 0.4 Mg Tab) 0.4 mg SUBLINGUAL Q5M PRN PRN Reason: Chest Pain Nitroglycerin (Nitroglycerin Oint 1 Inch/Gm Packet) 1 inch TOPICAL Q6HR [facility] Last Admin: 01/08/20 18:47 Dose: Not Given Documented by: Pantoprazole Sodium (Pantoprazole 40 Mg Tablet) 40 mg PO DAILY@0730 [facility] Last Admin: 01/08/20 06:38 Dose: Not Given Documented by: Polyethylene Glycol (Polyethylene Glycol 3350 17 Gm Powd.Pack) 17 gm PO HS PRN PRN Reason: Constipation Last Admin: 01/08/20 17:46 Dose: 17 gm Documented by: Prednisone (Prednisone 20 Mg Tab) 20 mg PO BID [facility] Last Admin: 01/08/20 20:15 Dose: 20 mg Documented by: Torsemide (Torsemide 20 Mg Tab) 40 mg PO DAILY [facility] Last Admin: 01/08/20 09:49 Dose: 40 mg Documented by: Physical examination: VITAL SIGNS: 97.2, 98, 18, 104/54, 91% on 5 L GENERAL: laying in bed, awake EYES: Pupils equal. Conjunctiva normal. NECK: JVD unable to assess masses not palpable. HEART: First and second heart sounds are normal; mild edema present LUNGS: Respiratory rate increased, decreased breath sounds ABDOMEN: Soft, nontender, liver spleen not palpable, no masses palpable. PSYCH: Alert and oriented x3; mood and affect normal. MUSCULAR skeletal: Evidence of OA Investigations: White count 7.9 hemoglobin 8.4 potassium 4.6 creatinine 2.57 Previous testing White count 19.6 hemoglobin 9.1 platelets 141 potassium 4.3 bun 30 creatinine 2.12 Troponin I 0.150, 0.156, 0.155 EKG tracing personally reviewed by me-sinus rhythm with ST segment changes patient in anterior leads Chest x-ray film personally reviewed by me-cardiomegaly, hyperinflation 2-D echocardiogram [December 2019]-shows moderate concentric LVH and EF of 50-55% %, moderate to severe tricuspid regurgitation, severe pulmonary hypertension Assessment: -Unstable angina in a patient with known coronary artery disease-being managed medically. - COPD in an ex-smoker -Chronic congestive heart failure exacerbation from diastolic dysfunction EF 50- 55% % from underlying coronary artery disease -chronic hypoxic respiratory failure, improved -Moderate to severe tricuspid regurgitation, non-rheumatic -Secondary severe pulmonary hypertension -Essential hypertension -Diabetes mellitus II, uncontrolled with hyperglycemia -Hyperlipidemia -Hypothyroid -CLL -Chronic macular degeneration -Coronary artery disease with prior history of stent -Obesity BMI 32.6 -Chronic gait dysfunction uses a cane -Acute kidney injury-hemodialysis dependent on Monday. -Depression not otherwise specified Plan: On, IV heparin. Nitrate added. Hemodialysis tomorrow. Hopefully can be discharged tomorrow if remains stable. Discussed with the patient.
[2020-01-09] MEDS: NITROGLYCERIN OINT 1 INCH/GM PACKET TOPICAL SCH ×2 (06:16→12:02)
[2020-01-09] MEDS: LEVOTHYROXINE 100 MCG TAB PO SCH (06:38)
[2020-01-09] MEDS: PANTOPRAZOLE 40 MG TABLET PO SCH (06:38)
[2020-01-09] MEDS: CLOPIDOGREL 75 MG TAB PO SCH (08:55)
[2020-01-09] MEDS: ASPIRIN 81 MG PO SCH (08:55)
[2020-01-09] MEDS: MULTIVITAMINS, THERA 1 EACH TAB PO SCH (08:55)
[2020-01-09] MEDS: predniSONE 20 MG TAB PO SCH ×2 (08:55→20:32)
[2020-01-09] MEDS: BUDESONIDE 0.5 MG/2 ML NEBU INHALATION SCH ×2 (09:07→19:46)
[2020-01-09] MEDS: FORMOTEROL FUMARATE 20 MCG/2 ML NEBU INHALATION SCH ×2 (09:07→19:46)
[2020-01-09] MEDS: ALBUTEROL NEBULIZED 2.5 MG/3 ML INHALATION PRN ×4 (09:07→19:46)
[2020-01-09] MEDS ORDERED: HEPARIN SODIUM,PORCINE 5,000 UNIT/ML 1 ML VIAL ONE (10:15)
[2020-01-09] MEDS: ISOSORBIDE MONONITRATE ER 60 MG TAB.ER.24H PO SCH (12:01)
[2020-01-09] MEDS: EZETIMIBE 10 MG TAB PO SCH (12:01)
[2020-01-09] MEDS: METOPROLOL TARTRATE 25 MG TAB PO SCH ×2 (12:02→20:32)
[2020-01-09] MEDS: TORSEMIDE 20 MG TAB PO SCH (12:02)
[2020-01-09] MEDS: ESCITALOPRAM 10 MG TAB PO SCH (12:02)
--- NOTE | 2020-01-09 12:04 | P.PN ---
Subjective Progress Note Date: 01/09/20 6 is a 79-year-old female with history of end-stage renal disease on hemodialysis, coronary artery disease with prior PCI, hypertension, hyperlipidemia, hypothyroidism, COPD, who presented to the hospital with symptoms of chest discomfort. She was seen in consultation by Dr. Adan yesterday and the decision was made to maximize the patient's medical therapy, and not to undergo any invasive procedures at this time. Patient was seen and examined this morning, denies any further chest discomfort and her breathing overall is stable. She was currently undergoing dialysis. Echocardiogram with Doppler study has been performed, results are yet pending. I pressure 130/70 with a heart rate in the 80s, 90% on 6 L of oxygen. No laboratory data from today. Objective - Vital Signs Vital signs: Vital Signs Temp 98.3 F 01/09/20 08:35 Pulse 100 01/09/20 09:34 Resp 18 01/09/20 08:35 BP 131/74 01/09/20 08:35 Pulse Ox 90 L 01/09/20 08:35 Intake & Output 01/08/20 01/09/20 01/09/20 18:59 06:59 18:59 Intake Total 592.665 Balance 592.665 Weight 86 kg Intake: Intake, IV Titration 112.665 Amount Heparin Sod,Pork in 0.45% 112.665 NaCl 25,000 unit In 0.45 % NaCl 1 250ml.bag @ 12 UNITS/KG/HR 9.798 mls/hr IV .Q24H [facility] Rx#: [id number] Oral 480 Other: Voiding Method Toilet # Voids 2 1 1 - Exam PHYSICAL EXAMINATION: GENERAL: 79-year-old female in no acute distress at the time of my examination HEENT: Head is atraumatic, normocephalic. Pupils equal, round. Sclera anicteric. Conjunctiva are clear. Mucous membranes of the mouth are moist. Neck is supple. There is no elevated jugular venous pressure. No carotid bruit is heard. HEART EXAMINATION: Heart S1, S2 normal. No murmur or gallop heard. CHEST EXAMINATION: Lungs are clear to auscultation and precussion. No chest wall tenderness is noted on palpation or with deep breathing. ABDOMEN: Soft, nontender. Bowel sounds are heard. No organomegaly noted. EXTREMITIES: 2+ peripheral pulses with no evidence of peripheral edema and no calf tenderness noted. NEUROLOGIC patient is awake, alert and oriented 3 . . - Labs CBC & Chem 7: 01/08/20 17:43 01/08/20 17:43 Labs: Abnormal Lab Results - Last 24 Hours (Table) 01/08/20 01/08/20 01/08/20 Range/Units 11:28 11:28 17:30 WBC (3.8-10.6) k/uL RBC (3.80-5.40) m/uL Hgb (11.4-16.0) gm/dL Hct (34.0-46.0) % MCV (80.0-100.0) fL MCHC (31.0-37.0) g/dL Plt Count (150-450) k/uL Lymphocytes # (1.0-4.8) k/uL Macrocytosis APTT 54.1 H (22.0-30.0) sec Chloride (98-107) mmol/L Carbon Dioxide (22-30) mmol/L BUN (7-17) mg/dL Creatinine (0.52-1.04) mg/dL Glucose (74-99) mg/dL POC Glucose (mg/dL) 287 H (75-99) mg/dL Magnesium (1.6-2.3) mg/dL Hep Bs Antibody Reactive A (Non-Reactive) 01/08/20 01/08/20 01/09/20 Range/Units 17:43 17:43 07:29 WBC 17.9 H (3.8-10.6) k/uL RBC 2.56 L (3.80-5.40) m/uL Hgb 8.4 L (11.4-16.0) gm/dL Hct 28.7 L (34.0-46.0) % MCV 112.2 H (80.0-100.0) fL MCHC 29.4 L (31.0-37.0) g/dL Plt Count 146 L (150-450) k/uL Lymphocytes # 11.4 H (1.0-4.8) k/uL Macrocytosis Marked A APTT 46.6 H (22.0-30.0) sec Chloride 96 L (98-107) mmol/L Carbon Dioxide 33 H (22-30) mmol/L BUN 39 H (7-17) mg/dL Creatinine 2.57 H (0.52-1.04) mg/dL Glucose 271 H (74-99) mg/dL POC Glucose (mg/dL) (75-99) mg/dL Magnesium 1.4 L (1.6-2.3) mg/dL Hep Bs Antibody (Non-Reactive) Assessment and Plan Plan: Assessment and plan #1 symptoms of chest discomfort, possible unstable angina. EKG showed normal sinus rhythm with nonspecific ST-T wave changes. Troponins mildly abnormal however did not reveal any significant rise and fall pattern, likely abnormal secondary to renal function. #2 history of coronary artery disease with prior intervention #3 hypertension #4 hyperlipidemia #5 COPD Plan We will review the patient's echocardiogram with Doppler study. Discontinue IV heparin today. We will also check a d-dimer on the patient. Patient's magnesium was also 1.4, we will replace that. 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 DNP note has been reviewed, I agree with a documented findings and plan of care. Patient was seen and examined.
--- NOTE | 2020-01-09 12:15 | CDI ---
Documentation Clarification Form Date: 01/09/2020 11:03:21 AM From: Raquel Resendez RN CCDS Admit Date: 01/08/2020 04:56:00 PM Patient Name: Amara Martinez Visit Number: [id number] Discharge Date: ATTENTION: The Clinical Documentation Specialists (CDI) and [facility] Coding Staff appreciate your assistance in clarifying documentation. Please respond to the clarification below the line at the bottom and electronically sign. The CDI & [facility] Coding staff will review the response and follow-up if needed. Please note: Queries are made part of the Legal Health Record. If you have any questions, please contact the author of this message via ITS. Dr. Gail Rousseau Conflicting documentation has been found in the medical record: Cardiology consult 01/07 Significant for end-stage renal disease on hemodialysis H&P 01/06 Chronic kidney disease stage III Internal Medicine Progress Note 01/07 Acute kidney injury hemodialysis dependent on Monday, and Monday. History/Risk Factors: 79-year-old female presents to the ED with chest pain for chest pain while at the dialysis center. Medical History: Heart failure; COPD; HTN; Clinical Indicators: Nephrology consult 01/07 CKD. Previous creatinine 1-1.5 prior to starting dialysis, stage III, secondary to nephrosclerosis Labs: 08/02/19 BUN 31; CR 0.93; GFR 59 10/04/19 BUN 76; CR 1.65; GFR 29 12/13/19 BUN 32; CR 3.35; GFR 12 01/07/20 BUN 30; CR 2.12; GFR 22 Treatment: Dialysis and Nephro consult above In your opinion, what is the most clinically appropriate diagnosis for this patient? ESRD CARLOS on ESRD CKD III CARLOS on CKD III Other explanation of clinical findings Unable to determine (no explanation for clinical findings) (Last Revision: June 2017) Acute kidney injury on hemodialysis AND chronic kidney disease stage III MTDD
--- NOTE | 2020-01-09 14:39 | P.PN ---
Subjective Patient is seen in follow-up for acute kidney injury, currently hemodialysis dependent. She is maintained on hemodialysis on Monday schedule. Tolerated dialysis well this morning with 2.5 L ultrafiltration. No chest pain or shortness of breath at this time. Oral intake is fair. No vomiting or diarrhea. Vital signs are stable. General: The patient appeared well nourished and normally developed. HEENT: Head exam is unremarkable. Neck is without jugular venous distension. LUNGS: Breath sounds decreased. HEART: Rate and Rhythm are regular. ABDOMEN: Soft, nontender. EXTREMITITES: Trace edema. Objective - Vital Signs Vital signs: Vital Signs Temp 97.3 F L 01/09/20 12:13 Pulse 76 01/09/20 12:56 Resp 18 01/09/20 12:13 BP 142/61 01/09/20 12:13 Pulse Ox 90 L 01/09/20 11:50 Intake & Output 01/08/20 01/09/20 01/09/20 18:59 06:59 18:59 Intake Total 592.665 Output Total 2500 Balance 592.665 -2500 Weight 86 kg Intake: Intake, IV Titration 112.665 Amount Heparin Sod,Pork in 0.45% 112.665 NaCl 25,000 unit In 0.45 % NaCl 1 250ml.bag @ 12 UNITS/KG/HR 9.798 mls/hr IV .Q24H [facility] Rx#: [id number] Oral 480 Output: Hemodialysis 2500 Other: Voiding Method Toilet # Voids 2 1 1 - Labs CBC & Chem 7: 01/08/20 17:43 01/08/20 17:43 Labs: Abnormal Lab Results - Last 24 Hours (Table) 01/08/20 01/08/20 01/08/20 Range/Units 11:28 17:30 17:43 WBC 17.9 H (3.8-10.6) k/uL RBC 2.56 L (3.80-5.40) m/uL Hgb 8.4 L (11.4-16.0) gm/dL Hct 28.7 L (34.0-46.0) % MCV 112.2 H (80.0-100.0) fL MCHC 29.4 L (31.0-37.0) g/dL Plt Count 146 L (150-450) k/uL Lymphocytes # 11.4 H (1.0-4.8) k/uL Macrocytosis Marked A APTT (22.0-30.0) sec D-Dimer (<0.60) mg/L FEU Chloride (98-107) mmol/L Carbon Dioxide (22-30) mmol/L BUN (7-17) mg/dL Creatinine (0.52-1.04) mg/dL Glucose (74-99) mg/dL POC Glucose (mg/dL) 287 H (75-99) mg/dL Magnesium (1.6-2.3) mg/dL Hep Bs Antibody Reactive A (Non-Reactive) 01/08/20 01/09/20 01/09/20 Range/Units 17:43 07:29 12:30 WBC (3.8-10.6) k/uL RBC (3.80-5.40) m/uL Hgb (11.4-16.0) gm/dL Hct (34.0-46.0) % MCV (80.0-100.0) fL MCHC (31.0-37.0) g/dL Plt Count (150-450) k/uL Lymphocytes # (1.0-4.8) k/uL Macrocytosis APTT 46.6 H (22.0-30.0) sec D-Dimer 0.61 H (<0.60) mg/L FEU Chloride 96 L (98-107) mmol/L Carbon Dioxide 33 H (22-30) mmol/L BUN 39 H (7-17) mg/dL Creatinine 2.57 H (0.52-1.04) mg/dL Glucose 271 H (74-99) mg/dL POC Glucose (mg/dL) (75-99) mg/dL Magnesium 1.4 L (1.6-2.3) mg/dL Hep Bs Antibody (Non-Reactive) Assessment and Plan Plan: Assessment: 1. Acute kidney injury, currently hemodialysis dependent. She is maintained on hemodialysis on Monday schedule outpatient. 2. Chronic kidney disease. Patient's creatinine was in the range of 1-1.5 prior to starting hemodialysis. 3. Acute on chronic diastolic CHF with moderate to severe tricuspid regurgitation and severe pulmonary hypertension. 4. Chest pain. Cardiology following. 5. CLL. 6. Anemia of chronic kidney disease. 7. Hypomagnesemia secondary to diuresis. Status post placement. Plan: Maintain Demadex. Hemodialysis on Monday. Continue to monitor for renal recovery outpatient. Add Aranesp.
--- NOTE | 2020-01-09 15:54 | NM ---
EXAMINATION TYPE: NM pul vent and perfuse DATE OF EXAM: 01/09/2020 COMPARISON: Chest x-ray 01/07/2020 HISTORY: Shortness of breath TECHNIQUE: Utilizing inhalation of 66.8 mCi Tc 99m DTPA aerosol and intravenous injection of 5.2 mCi of Tc 99m MAA, ventilation and perfusion images are acquired post injection in multiple projections. FINDINGS: Uptake on perfusion imaging somewhat improved as compared to ventilation images, uptake is relatively homogenous IMPRESSION: Low probability for pulmonary embolism
[2020-01-09] MEDS ORDERED: DARBEPOETIN ALFA 40 MCG/0.4 ML SYRINGE SQ SCH (16:00)
[2020-01-09] MEDS: MAGNESIUM SULFATE-D5W PMX 1 GM in DEXTROSE/WATER 1 100ML.BAG IVPB SCH ×2 (16:18→18:44)
--- NOTE | 2020-01-09 19:01 | P.PN ---
Progress Note - Text Progress Note Date: 01/09/20 Chief Complaint: Chest pressure History of presenting complaint: This is a very pleasant 79-year-old patient of Dr. Steph Dooley. Chronic stable medical conditions include hyperlipidemia, hypertension, obstructive sleep apnea does not use a CPAP machine, hypothyroid, CLL, macular degeneration, coronary artery disease with stent/2008. Home oxygen 4-5 L. . Patient was at home when she developed chest pressure gradient across the chest. [place] like a tightness. Lasted for a few hours. She decided any to proceed with hemodialysis. During the hemodialysis the pressure became worse. There is no dizziness nor lightheadedness some shortness of breath. Admitted unstable angina. Patient has known coronary artery disease with stents. Admitted unstable angina. Started IV heparin. Today-feeling comfortable. Tolerating a diet. No chest pain. Up in a chair. Cardiology ordered a VQ scan. Review of systems: Was done for constitutional, cardiovascular, GI, pulmonary. relevant finding as above Active Medications Albuterol Sulfate (Albuterol Nebulized 2.5 Mg/3 Ml) 2.5 mg INHALATION RT-QID PRN PRN Reason: Shortness Of Breath Last Admin: 01/09/20 15:48 Dose: 2.5 mg Documented by: Aspirin (Aspirin 81 Mg) 81 mg PO DAILY [facility] Last Admin: 01/09/20 08:55 Dose: 81 mg Documented by: Atorvastatin Calcium (Atorvastatin 40 Mg Tab) 40 mg PO HS [facility] Last Admin: 01/08/20 20:15 Dose: 40 mg Documented by: Budesonide (Budesonide 0.5 Mg/2 Ml Nebu) 0.5 mg INHALATION RT-BID [facility] Last Admin: 01/09/20 09:07 Dose: 0.5 mg Documented by: Clopidogrel Bisulfate (Clopidogrel 75 Mg Tab) 75 mg PO DAILY [facility] Last Admin: 01/09/20 08:55 Dose: 75 mg Documented by: Darbepoetin Zeferino (Darbepoetin Zeferino 40 Mcg/0.4 Ml Syringe) 40 mcg SQ Q7D [facility] Last Admin: 01/09/20 16:52 Dose: 40 mcg Documented by: Ezetimibe (Ezetimibe 10 Mg Tab) 10 mg PO DAILY [facility] Last Admin: 01/09/20 12:01 Dose: 10 mg Documented by: Escitalopram Oxalate (Escitalopram 10 Mg Tab) 10 mg PO DAILY [facility] Last Admin: 01/09/20 12:02 Dose: 10 mg Documented by: Formoterol Fumarate (Formoterol Fumarate 20 Mcg/2 Ml Nebu) 20 mcg INHALATION RT-BID [facility] Last Admin: 01/09/20 09:07 Dose: 20 mcg Documented by: Isosorbide Mononitrate (Isosorbide Mononitrate Er 60 Mg Tab.Er.24h) 60 mg PO DAILY [facility] Last Admin: 01/09/20 12:01 Dose: 60 mg Documented by: Levothyroxine Sodium (Levothyroxine 100 Mcg Tab) 50 mcg PO Rios@629 [facility] Levothyroxine Sodium (Levothyroxine 100 Mcg Tab) 100 mcg PO DAILY@629 [facility] Last Admin: 01/09/20 06:38 Dose: 100 mcg Documented by: Loratadine (Loratadine 10 Mg Tab) 10 mg PO DAILY PRN PRN Reason: Allergy Symptoms Lorazepam (Lorazepam 0.5 Mg Tab) 0.5 mg PO BID PRN PRN Reason: Anxiety Last Admin: 01/08/20 17:46 Dose: 0.5 mg Documented by: Metoprolol Tartrate (Metoprolol Tartrate 25 Mg Tab) 25 mg PO BID [facility] Last Admin: 01/09/20 12:02 Dose: 25 mg Documented by: Multivitamins (Multivitamins, Thera 1 Each Tab) 1 each PO DAILY [facility] Last Admin: 01/09/20 08:55 Dose: 1 each Documented by: Nitroglycerin (Nitroglycerin Sl Tabs 0.4 Mg Tab) 0.4 mg SUBLINGUAL Q5M PRN PRN Reason: Chest Pain Pantoprazole Sodium (Pantoprazole 40 Mg Tablet) 40 mg PO DAILY@30 [facility] Last Admin: 01/09/20 06:38 Dose: 40 mg Documented by: Polyethylene Glycol (Polyethylene Glycol 3350 17 Gm Powd.Pack) 17 gm PO HS PRN PRN Reason: Constipation Last Admin: 01/08/20 17:46 Dose: 17 gm Documented by: Prednisone (Prednisone 20 Mg Tab) 20 mg PO BID [facility] Last Admin: 01/09/20 08:55 Dose: 20 mg Documented by: Torsemide (Torsemide 20 Mg Tab) 40 mg PO DAILY [facility] Last Admin: 01/09/20 12:02 Dose: 40 mg Documented by: Physical examination: VITAL SIGNS: 98, 89, 14, 113/61, 90% on 6 L GENERAL: Sitting up, comfortable EYES: Pupils equal. Conjunctiva normal. NECK: JVD unable to assess masses not palpable. HEART: First and second heart sounds are normal; mild edema present LUNGS: Respiratory rate increased, decreased breath sounds ABDOMEN: Soft, nontender, liver spleen not palpable, no masses palpable. PSYCH: Alert and oriented x3; mood and affect normal. MUSCULAR skeletal: Evidence of OA Investigations: White count 17.9 hemoglobin 8.4 platelets 146 potassium 4.6 bun 39 creatinine 2.57 Previous testing White count 19.6 hemoglobin 9.1 platelets 141 potassium 4.3 bun 30 creatinine 2.12 Troponin I 0.150, 0.156, 0.155 EKG tracing personally reviewed by me-sinus rhythm with ST segment changes patient in anterior leads Chest x-ray film personally reviewed by me-cardiomegaly, hyperinflation 2-D echocardiogram [December 2019]-shows moderate concentric LVH and EF of 50-55% %, moderate to severe tricuspid regurgitation, severe pulmonary hypertension Previous testing: Creatinine 3.6 on December 16 Assessment: -Unstable angina in a patient with known coronary artery disease-being managed medically. - COPD in an ex-smoker -Chronic congestive heart failure exacerbation from diastolic dysfunction EF 50- 55% % from underlying coronary artery disease -chronic hypoxic respiratory failure, improved -Moderate to severe tricuspid regurgitation, non-rheumatic -Secondary severe pulmonary hypertension -Essential hypertension -Diabetes mellitus II, uncontrolled with hyperglycemia -Hyperlipidemia -Hypothyroid -CLL -Chronic macular degeneration -Coronary artery disease with prior history of stent -Obesity BMI 32.6 -Chronic gait dysfunction uses a cane -Acute kidney injury-hemodialysis dependent on Monday. -Depression not otherwise specified -VQ scan ordered by cardiology. Plan: VQ scan ordered today. Other medications to continue. Discussed with patient. Discharged later today or tomorrow.
[2020-01-09] MEDS: ATORVASTATIN 40 MG TAB PO SCH (20:32)
[2020-01-09] MEDS: polyethylene glycoL 3350 17 GM POWD.PACK PO PRN (20:47)
[2020-01-09] MEDS: LORazepam 0.5 MG TAB PO PRN (22:29)
[2020-01-10 03:22] VITALS: RESP 20
[2020-01-10] MEDS: LEVOTHYROXINE 100 MCG TAB PO SCH (06:22)
[2020-01-10] MEDS: PANTOPRAZOLE 40 MG TABLET PO SCH (06:22)
[2020-01-10] MEDS: BUDESONIDE 0.5 MG/2 ML NEBU INHALATION SCH (09:25)
[2020-01-10] MEDS: FORMOTEROL FUMARATE 20 MCG/2 ML NEBU INHALATION SCH ×2 (09:25→13:23)
[2020-01-10] MEDS: ALBUTEROL NEBULIZED 2.5 MG/3 ML INHALATION PRN (09:29)
[2020-01-10 09:49] VITALS: TEMP 97.6
[2020-01-10] MEDS: ESCITALOPRAM 10 MG TAB PO SCH (10:49)
[2020-01-10] MEDS: ASPIRIN 81 MG PO SCH (10:49)
[2020-01-10] MEDS: METOPROLOL TARTRATE 25 MG TAB PO SCH (10:49)
[2020-01-10] MEDS: CLOPIDOGREL 75 MG TAB PO SCH (10:50)
[2020-01-10] MEDS: TORSEMIDE 20 MG TAB PO SCH (10:50)
[2020-01-10] MEDS: EZETIMIBE 10 MG TAB PO SCH (10:50)
[2020-01-10] MEDS: predniSONE 20 MG TAB PO SCH (10:50)
[2020-01-10] MEDS: MULTIVITAMINS, THERA 1 EACH TAB PO SCH (10:50)
[2020-01-10] MEDS: ISOSORBIDE MONONITRATE ER 60 MG TAB.ER.24H PO SCH (10:50)
[2020-01-10 12:16] VITALS: BP 124/68; PULSE 74
--- NOTE | 2020-01-10 12:26 | P.PN ---
Subjective Patient is seen in follow-up for acute kidney injury, currently hemodialysis dependent. She is maintained on hemodialysis on Monday schedule. Tolerated dialysis well yesterday with 2.5 L ultrafiltration. No chest pain or shortness of breath at this time. Oral intake is fair. No vomiting or diarrhea. VQ scan revealed low probability of PE. Vital signs are stable. General: The patient appeared well nourished and normally developed. HEENT: Head exam is unremarkable. Neck is without jugular venous distension. LUNGS: Breath sounds decreased. HEART: Rate and Rhythm are regular. ABDOMEN: Soft, nontender. EXTREMITITES: Trace edema. Objective - Vital Signs Vital signs: Vital Signs Temp 97.6 F 01/10/20 12:00 Pulse 74 01/10/20 12:00 Resp 20 01/10/20 12:00 BP 124/68 01/10/20 12:00 Pulse Ox 93 L 01/10/20 12:00 Intake & Output 01/09/20 01/10/20 01/10/20 18:59 06:59 18:59 Intake Total 240 240 Output Total 2500 Balance -2260 240 Weight 85.5 kg Intake: Oral 240 240 Output: Hemodialysis 2500 Other: Voiding Method Toilet Toilet # Voids 2 1 - Labs CBC & Chem 7: 01/08/20 17:43 01/08/20 17:43 Labs: Abnormal Lab Results - Last 24 Hours (Table) 01/09/20 Range/Units 12:30 D-Dimer 0.61 H (<0.60) mg/L FEU Assessment and Plan Plan: Assessment: 1. Acute kidney injury, currently hemodialysis dependent. She is maintained on hemodialysis on Monday schedule outpatient. 2. Chronic kidney disease. Patient's creatinine was in the range of 1-1.5 prior to starting hemodialysis. 3. Acute on chronic diastolic CHF with moderate to severe tricuspid regurgitation and severe pulmonary hypertension. 4. Chest pain. Cardiology following. 5. CLL. 6. Anemia of chronic kidney disease maintained on Aranesp. 7. Hypomagnesemia secondary to diuresis. Being replaced. Plan: Maintain Demadex. Hemodialysis on Monday. Continue to monitor for renal recovery outpatient.
--- NOTE | 2020-01-10 13:57 | P.PN ---
Subjective Progress Note Date: 01/10/20 HISTORY OF PRESENT ILLNESS: Patient examined this morning at bedside. She denies chest pain or pressure. Denies shortness of breath. She underwent a V/Q scan yesterday which revealed low probability for PE. Vital signs are stable. PHYSICAL EXAM: VITAL SIGNS: Reviewed. GENERAL: Well-developed in no acute distress. NECK: Supple. No JVD or thyromegaly LUNGS: Respirations even and unlabored. Lungs essentially clear to auscultation bilaterally. HEART: Regular rate and rhythm. S1 and S2 heard. EXTREMITIES: Normal range of motion. No clubbing or cyanosis. Peripheral pulses intact. No lower extremity edema ASSESSMENT: Chest pain History of coronary artery disease with prior intervention Hypertension Hyperlipidemia COPD PLAN: Echocardiogram has been taking. Results are pending. Continue current cardiac medications He should be be discharged home from a cardiac perspective. Patient usually follows with a accounting file clerk in [place]. However she is wishing to follow up with Dr. Adan Nurse practitioner note has been reviewed by physician. Signing provider agrees with the documented findings, assessment, and plan of care. Objective - Vital Signs Vital signs: Vital Signs Temp 97.6 F 01/10/20 12:00 Pulse 74 01/10/20 12:00 Resp 20 01/10/20 12:00 BP 124/68 01/10/20 12:00 Pulse Ox 93 L 01/10/20 12:00 Intake & Output 01/09/20 01/10/20 01/10/20 18:59 06:59 18:59 Intake Total 240 480 Output Total 2500 Balance -2260 480 Weight 85.5 kg Intake: Oral 240 480 Output: Hemodialysis 2500 Other: Voiding Method Toilet Toilet # Voids 2 1 - Labs CBC & Chem 7: 01/08/20 17:43 01/08/20 17:43
--- NOTE | 2020-01-10 21:40 | P.DS ---
Providers Date of admission: 01/08/20 16:56 Expected date of discharge: 01/10/20 Attending physician: Shekhar Gold Consults: 01/07/20 15:05 Consult Physician Urgent Consulting Provider: Cardiology Sachin Consult Reason/Comments: Unstable angina Do you want consulting provider notified?: Yes 01/07/20 15:10 Consult Physician Urgent Consulting Provider: Elmer Gutierrez Consult Reason/Comments: Kidney failure Do you want consulting provider notified?: Yes Primary care physician: Radha Dooley [facility] Course: Chief Complaint: Chest pressure History of presenting complaint: This is a very pleasant 79-year-old patient of Dr. Steph Dooley. Chronic stable medical conditions include hyperlipidemia, hypertension, obstructive sleep apnea does not use a CPAP machine, hypothyroid, CLL, macular degeneration, coronary artery disease with stent/2008. Home oxygen 4-5 L. . Patient was at home when she developed chest pressure gradient across the chest. Bonner like a tightness. Lasted for a few hours. She decided any to proceed with hemodialysis. During the hemodialysis the pressure became worse. There is no dizziness nor lightheadedness some shortness of breath. Admitted unstable angina. Patient has known coronary artery disease with stents. Admitted unstable angina. Started IV heparin. PE-low probability- VQ scan. Imdur added. Patient received hemodialysis. Today-feeling comfortable. No chest pain. Eating well. Care was discussed. Consultation: [facility] Dr. Gutierrez from nephrology Physical examination: VITAL SIGNS: Recent 0.6, 74, 20, 124/68, 93% on 4 L GENERAL: Sitting up, comfortable EYES: Pupils equal. Conjunctiva normal. NECK: JVD unable to assess masses not palpable. HEART: First and second heart sounds are normal; mild edema present LUNGS: Respiratory rate increased, decreased breath sounds ABDOMEN: Soft, nontender, liver spleen not palpable, no masses palpable. PSYCH: Alert and oriented x3; mood and affect normal. MUSCULAR skeletal: Evidence of OA Investigations: White count 17.9 hemoglobin 8.4 platelets 146 potassium 4.6 bun 39 creatinine 2.57 Previous testing Hepatitis B surface antibody reactive, hepatitis B surface antibody quantitative 107, hepatitis B surface antigen nonreactive White count 19.6 hemoglobin 9.1 platelets 141 potassium 4.3 bun 30 creatinine 2.12 Troponin I 0.150, 0.156, 0.155 LDL 51 EKG tracing personally reviewed by me-sinus rhythm with ST segment changes patient in anterior leads Chest x-ray film personally reviewed by me-cardiomegaly, hyperinflation 2-D echocardiogram [December 2019]-shows moderate concentric LVH and EF of 50-55% %, moderate to severe tricuspid regurgitation, severe pulmonary hypertension Previous testing: Creatinine 3.6 on December 16 Assessment: -Unstable angina in a patient with known coronary artery disease-being managed medically. - COPD in an ex-smoker -Chronic congestive heart failure exacerbation from diastolic dysfunction EF 50- 55% % from underlying coronary artery disease -chronic hypoxic respiratory failure, improved -Moderate to severe tricuspid regurgitation, non-rheumatic -Secondary severe pulmonary hypertension -Essential hypertension -Diabetes mellitus II, uncontrolled with hyperglycemia -Hyperlipidemia -Hypothyroid -CLL -Chronic macular degeneration -Coronary artery disease with prior history of stent -Obesity BMI 32.6 -Chronic gait dysfunction uses a cane -Acute kidney injury-hemodialysis dependent on Monday. -Depression not otherwise specified Disposition: Home Plan - Discharge Summary Discharge Rx Participant: No New Discharge Prescriptions: New Isosorbide Mononitrate ER [Imdur] 60 mg PO DAILY #60 tab.er.24h Continue Arformoterol Tartrate [Brovana] 15 mcg INHALATION RT-BID Aspirin EC [Ecotrin Low Dose] 81 mg PO DAILY Levothyroxine Sodium [Synthroid] 100 mcg PO DAILY Multivitamins, Thera [Multivitamin (formulary)] 1 tab PO DAILY Nitroglycerin Sl Tabs [Nitrostat] 0.4 mg SUBLINGUAL Q5M PRN PRN Reason: Chest Pain Omeprazole [PriLOSEC] 20 mg PO DAILY Vit C/E/Zn/Coppr/Lutein/Zeaxan [Preservision Areds 2 Softgel] 1 cap PO BID Yupelri 175mcg/3ml 175 mcg INHALATION RT-DAILY Atorvastatin [Lipitor] 40 mg PO HS Budesonide [Pulmicort] 0.5 mg INHALATION RT-BID Ezetimibe [Zetia] 10 mg PO DAILY Levothyroxine Sodium [Synthroid] 50 mcg PO PADILLA Clopidogrel [Plavix] 75 mg PO DAILY #30 tab Promethaz-Cod 6.25-10 mg/5 ml [Phenergan with Codeine] 5 ml PO Q6HR PRN PRN Reason: Cough Albuterol Inhaler [Ventolin Hfa Inhaler] 2 puff INHALATION RT-QID PRN PRN Reason: Shortness Of Breath Torsemide [Demadex] 40 mg PO DAILY #30 tab Escitalopram [Lexapro] 10 mg PO DAILY #10 tab predniSONE [Deltasone] 20 mg PO BID Loratadine [Claritin] 10 mg PO DAILY PRN PRN Reason: Allergy Symptoms Metoprolol Tartrate [Lopressor] 25 mg PO BID #0 tab polyethylene glycoL 3350 [Miralax] 17 gm PO HS PRN powd.pack PRN Reason: Constipation LORazepam [Ativan] 0.5 mg PO BID PRN #10 tab PRN Reason: Anxiety Discontinued Isosorbide Mononitrate ER [Imdur] 30 mg PO DAILY #30 tab.er.24h Discharge Medication List Arformoterol Tartrate [Brovana] 15 mcg INHALATION RT-BID 10/03/16 [History] Aspirin EC [Ecotrin Low Dose] 81 mg PO DAILY 10/03/16 [History] Levothyroxine Sodium [Synthroid] 100 mcg PO DAILY 10/03/16 [History] Multivitamins, Thera [Multivitamin (formulary)] 1 tab PO DAILY 10/03/16 [History] Nitroglycerin Sl Tabs [Nitrostat] 0.4 mg SUBLINGUAL Q5M PRN 10/03/16 [History] Omeprazole [PriLOSEC] 20 mg PO DAILY 10/03/16 [History] Vit C/E/Zn/Coppr/Lutein/Zeaxan [Preservision Areds 2 Softgel] 1 cap PO BID 10/03/16 [History] Atorvastatin [Lipitor] 40 mg PO HS 05/09/19 [History] Budesonide [Pulmicort] 0.5 mg INHALATION RT-BID 05/09/19 [History] Ezetimibe [Zetia] 10 mg PO DAILY 05/09/19 [History] Levothyroxine Sodium [Synthroid] 50 mcg PO PADILLA 05/09/19 [History] Yupelri 175mcg/3ml 175 mcg INHALATION RT-DAILY 05/09/19 [History] Clopidogrel [Plavix] 75 mg PO DAILY #30 tab 05/11/19 [Rx] Albuterol Inhaler [Ventolin Hfa Inhaler] 2 puff INHALATION RT-QID PRN 10/02/19 [History] Promethaz-Cod 6.25-10 mg/5 ml [Phenergan with Codeine] 5 ml PO Q6HR PRN 10/02/19 [History] Escitalopram [Lexapro] 10 mg PO DAILY #10 tab 10/06/19 [Rx] Torsemide [Demadex] 40 mg PO DAILY #30 tab 10/06/19 [Rx] Loratadine [Claritin] 10 mg PO DAILY PRN 12/09/19 [History] predniSONE [Deltasone] 20 mg PO BID 12/09/19 [History] LORazepam [Ativan] 0.5 mg PO BID PRN #10 tab 12/18/19 [Rx] Metoprolol Tartrate [Lopressor] 25 mg PO BID #0 tab 12/18/19 [Rx] polyethylene glycoL 3350 [Miralax] 17 gm PO HS PRN powd.pack 12/18/19 [Rx] Isosorbide Mononitrate ER [Imdur] 60 mg PO DAILY #60 tab.er.24h 01/10/20 [Rx] Follow up Appointment(s)/Referral(s): Alexis Low MD [STAFF PHYSICIAN] - 01/17/20 3:30 pm ([facility] [address]) Radha Dooley MD [Primary Care Provider] - 1-2 days (Office will call for a virtual home visit.) [facility] [NON-STAFF] - Misael Adan MD [STAFF PHYSICIAN] - (See Dr Low) Discharge Disposition: HOME SELF-CARE
[2020-01-12] MEDS ORDERED: LEVOTHYROXINE 100 MCG TAB PO SCH (06:30)
== END 2020-01-10 16:17 | disposition home or self-care (01) | DRG 302 ==
LOC: EC 13:14 → 3SCARD 15:16 → OBSVTOIN 01-08 16:56 → 3NCARDOBS 01-08 20:12 → 3SCARD 01-08 20:12
PROVIDERS: ADMIT Hospitalist; ATTEND Hospitalist
PROC: 5A1D70Z Performance of Urinary Filtration, Intermittent, Less than 6 Hours Per Day (ICD-10-PCS; principal; 2020-01-08)
DX: I25.110 Atherosclerotic heart disease of native coronary artery with unstable angina pectoris (principal); I50.33 Acute on chronic diastolic (congestive) heart failure; N17.9 Acute kidney failure, unspecified; C91.10 Chronic lymphocytic leukemia of B-cell type not having achieved remission; J96.11 Chronic respiratory failure with hypoxia; I13.0 Hypertensive heart and chronic kidney disease with heart failure and stage 1 through stage 4 chronic kidney disease, or unspecified chronic kidney disease; I27.20 Pulmonary hypertension, unspecified; H35.30 Unspecified macular degeneration; G47.33 Obstructive sleep apnea (adult) (pediatric); F32.9 Major depressive disorder, single episode, unspecified; E03.9 Hypothyroidism, unspecified; E11.22 Type 2 diabetes mellitus with diabetic chronic kidney disease; E11.65 Type 2 diabetes mellitus with hyperglycemia; E66.9 Obesity, unspecified; D63.1 Anemia in chronic kidney disease; E78.5 Hyperlipidemia, unspecified; E78.00 Pure hypercholesterolemia, unspecified; E83.42 Hypomagnesemia; J44.9 Chronic obstructive pulmonary disease, unspecified; Z60.2 Problems related to living alone; I07.1 Rheumatic tricuspid insufficiency; R26.9 Unspecified abnormalities of gait and mobility; T50.2X5A Adverse effect of carbonic-anhydrase inhibitors, benzothiadiazides and other diuretics, initial encounter; N18.30 Chronic kidney disease, stage 3 unspecified; Z79.02 Long term (current) use of antithrombotics/antiplatelets; Z79.82 Long term (current) use of aspirin; Z79.890 Hormone replacement therapy; Z79.899 Other long term (current) drug therapy; Z68.32 Body mass index [BMI] 32.0-32.9, adult; Z99.2 Dependence on renal dialysis; Z95.5 Presence of coronary angioplasty implant and graft; Z87.891 Personal history of nicotine dependence; Z82.49 Family history of ischemic heart disease and other diseases of the circulatory system; Z90.89 Acquired absence of other organs
CPT/HCPCS: 36415; 71046; 78582; 80048; 80053; 80061; 83735; 84484; 85025; 85379; 85610; 85730; 86706; 87340; 90935; 93005; 94640; 94760; 96365; 96366; 99291

== ENCOUNTER 2020-02-03 15:55 | Inpatient (IN) | payer MEDICARE, BC ==
[2020-02-03] MEDS ORDERED: HYDROmorphone 0.5 MG/0.5 ML SYRINGE IVP STA (16:27)
--- NOTE | 2020-02-03 16:29 | ED ---
Fall HPI - General Chief Complaint: Fall Stated Complaint: Fall Time Seen by Provider: 02/03/20 16:05 Source: patient, EMS, RN notes reviewed Mode of arrival: EMS Limitations: no limitations - History of Present Illness Initial Comments: 79-year-old female presents emergency Department with complaint of fall. Patient states she is open door for her occupational therapist who is treating her left wrist. Patient states that she fell backwards striking her head and fell onto her right hip. Patient complains of right hip, right leg pain. Patient states she was prior seen by Dr. Angeles for her left wrist fracture. Patient denies any loss conscious. Denies any blood thinners no neck, back pain. - Related Data Home Medications Medication Instructions Recorded Confirmed Arformoterol Tartrate [Brovana] 15 mcg INHALATION RT-BID 10/03/16 01/07/20 Aspirin EC [Ecotrin Low Dose] 81 mg PO DAILY 10/03/16 01/07/20 Levothyroxine Sodium [Synthroid] 100 mcg PO DAILY 10/03/16 01/07/20 Multivitamins, Thera [Multivitamin 1 tab PO DAILY 10/03/16 01/07/20 (formulary)] Nitroglycerin Sl Tabs [Nitrostat] 0.4 mg SUBLINGUAL Q5M PRN 10/03/16 01/07/20 Omeprazole [PriLOSEC] 20 mg PO DAILY 10/03/16 01/07/20 Vit C/E/Zn/Coppr/Lutein/Zeaxan 1 cap PO BID 10/03/16 01/07/20 [Preservision Areds 2 Softgel] Atorvastatin [Lipitor] 40 mg PO HS 05/09/19 01/07/20 Budesonide [Pulmicort] 0.5 mg INHALATION RT-BID 05/09/19 01/07/20 Ezetimibe [Zetia] 10 mg PO DAILY 05/09/19 01/07/20 Levothyroxine Sodium [Synthroid] 50 mcg PO PADILLA 05/09/19 01/07/20 Yupelri 175mcg/3ml 175 mcg INHALATION RT-DAILY 05/09/19 01/07/20 Albuterol Inhaler [Ventolin Hfa 2 puff INHALATION RT-QID PRN 10/02/19 01/07/20 Inhaler] Promethaz-Cod 6.25-10 mg/5 ml 5 ml PO Q6HR PRN 10/02/19 01/07/20 [Phenergan with Codeine] Loratadine [Claritin] 10 mg PO DAILY PRN 12/09/19 01/07/20 predniSONE [Deltasone] 20 mg PO BID 12/09/19 01/07/20 Previous Rx's Medication Instructions Recorded Clopidogrel [Plavix] 75 mg PO DAILY #30 tab 05/11/19 Escitalopram [Lexapro] 10 mg PO DAILY #10 tab 10/06/19 Torsemide [Demadex] 40 mg PO DAILY #30 tab 10/06/19 LORazepam [Ativan] 0.5 mg PO BID PRN #10 tab 12/18/19 Metoprolol Tartrate [Lopressor] 25 mg PO BID #0 tab 12/18/19 polyethylene glycoL 3350 [Miralax] 17 gm PO HS PRN powd.pack 12/18/19 Isosorbide Mononitrate ER [Imdur] 60 mg PO DAILY #60 tab.er.24h 01/10/20 Allergies Allergy/AdvReac Type Severity Reaction Status Date / Time No Known Allergies Allergy Verified 01/07/20 15:08 Review of Systems ROS Statement: Those systems with pertinent positive or pertinent negative responses have been documented in the HPI. ROS Other: All systems not noted in ROS Statement are negative. Past Medical History Past Medical History: Cancer, Heart Failure, COPD, Hyperlipidemia, Hypertension, Sleep Apnea/CPAP/BIPAP, Thyroid Disorder Additional Past Medical History / Comment(s): CLL. sleep apnea. macular degeneration. Skin ca History of Any Multi-Drug Resistant Organisms: None Reported Past Surgical History: Heart Catheterization With Stent, Tonsillectomy Additional Past Surgical History / Comment(s): d & c Past Anesthesia/Blood Transfusion Reactions: No Reported Reaction Date of Last Stent Placement:: 2007 Past Psychological History: No Psychological Hx Reported Smoking Status: Former smoker Past Alcohol Use History: Daily Past Drug Use History: None Reported - Past Family History Mother Family Medical History: Congestive Heart Failure (CHF) Father Family Medical History: No Reported History Additional Family Medical History / Comment(s): "Alcohol problems" Chirrosis General Exam Limitations: no limitations General appearance: alert, in no apparent distress Head exam: Present: normocephalic. Absent: atraumatic, normal inspection (Large right posterior hematoma) Eye exam: Present: normal appearance, PERRL, EOMI. Absent: scleral icterus, conjunctival injection, periorbital swelling ENT exam: Present: normal exam, normal oropharynx, mucous membranes moist Neck exam: Present: normal inspection, full ROM. Absent: tenderness, meningismus, lymphadenopathy Respiratory exam: Present: normal lung sounds bilaterally. Absent: respiratory distress, wheezes, rales, rhonchi, stridor Cardiovascular Exam: Present: regular rate, normal rhythm, normal heart sounds. Absent: systolic murmur, diastolic murmur, rubs, gallop, clicks Extremities exam: Present: other (Shortening, rotation noted of the right leg, tenderness diffusely over the right femur vascular intact) Neurological exam: Present: alert, reflexes normal. Absent: motor sensory deficit Skin exam: Present: warm, dry, intact, normal color. Absent: rash Course Vital Signs 02/03/20 16:02 Temperature 96.9 F L Pulse Rate 73 Respiratory 18 Rate Blood Pressure 122/67 O2 Sat by Pulse 92 L Oximetry Medical Decision Making - Medical Decision Making X-ray shows evidence of a comminuted IT fracture. Patient CT her brain does not reveal any intracranial hemorrhage. Patient has highly seen by orthopedics associate. Case discussed with Shawanda Cunningham drywall professional for Dr. Duran. Patient will be admitted with medical clearance. Disposition Clinical Impression: Fall, Fracture, intertrochanteric, right femur Disposition: ADMITTED IP TO THIS HOSP Condition: Fair Referrals: Radha Dooley MD [Primary Care Provider] - 1-2 days
--- NOTE | 2020-02-03 16:44 | CT ---
EXAMINATION TYPE: CT brain jess herrera con DATE OF EXAM: 02/03/2020 COMPARISON: None HISTORY: Fall today. CT DLP: 1377.7 mGycm, Automated exposure control for dose reduction was used. CONTRAST: Patient injected with 0 mL of Isovue 300. CT of the brain is performed utilizing 3 mm thick sections through the posterior fossa and 3 mm thick sections through the remaining calvarium. Study is performed within 24 hours of arrival to the hospital. No abnormal hyperdensity is present to suggest an acute intracranial hemorrhage. No mass lesion is evident. No acute infarcts are evident. Patchy periventricular white matter hypodensity is present, likely on the basis of chronic white matter ischemic changes. Ventricles and sulci are appropriate for the patient age. Paranasal sinuses and mastoid air cells within the [id number] are clear. IMPRESSIONS: 1. Chronic appearing periventricular white matter ischemic changes. CT cervical spine. COMPARISON: None CT of the cervical spine is performed in the axial plane at 2 mm thick sections. Reconstructed image s in the coronal, and sagittal plane are reviewed on the computer. No acute fractures are evident. There is a cervical kyphosis centered at C4-5. Anterior vertebral body spurring is present throughout the cervical spine. Loss of disc height is present diffusely through the cervical spine Vertebral body heights are preserved. No spinal canal stenosis is evident. Foraminal narrowing due to uncovertebral joint hypertrophy is present C5-C6 and C6-C7. IMPRESSIONS: 1. Cervical kyphosis without spinal canal stenosis. 2. Lower bilateral foraminal narrowing C5-6 and C6-7 due to uncovertebral joint hypertrophy. 3. No acute osseous abnormality.
--- NOTE | 2020-02-03 17:00 | XR ---
EXAMINATION TYPE: XR chest 1V DATE OF EXAM: 02/03/2020 COMPARISON: 01/07/2020 INDICATION: Fall TECHNIQUE: Single frontal view of the chest is obtained. FINDINGS: The heart size is moderately prominent. The pulmonary vasculature is normal. Small infiltrate is at the left costophrenic angle. Port is present on the right with the tips in distal superior vena cava region. No pneumothorax is evident. IMPRESSION: 1. Mild infiltrate left costophrenic angle. Correlate for atelectasis
--- NOTE | 2020-02-03 17:01 | XR ---
EXAMINATION TYPE: XR femur RT DATE OF EXAM: 02/03/2020 COMPARISON: None HISTORY: Fall, pain TECHNIQUE: 2 view right femur FINDINGS: Intertrochanteric fracture is present. This is comminuted within the lesser trochanter. Femoral head articulates with the acetabulum. Vascular calcification is noted. Distal femur is intact. Note is made of a calcified fibroid within the pelvis IMPRESSION: 1. Comminuted intertrochanteric fracture right hip
--- NOTE | 2020-02-03 17:02 | XR ---
EXAMINATION TYPE: XR pelvis AP view DATE OF EXAM: 02/03/2020 COMPARISON: None HISTORY: Fall, pain TECHNIQUE: AP pelvis FINDINGS: There is an intertrochanteric fracture with avulsion of the lesser trochanter of the right hip. No additional fractures are evident. Calcified fibroid is within the pelvis. IMPRESSION: 1. Comminuted Intertrochanteric fracture right hip
[2020-02-03] MEDS ORDERED: NALOXONE 0.4 MG/ML 1 ML VIAL IV PRN (17:07)
[2020-02-03] MEDS ORDERED: HYDROmorphone 1 MG/ML 1 ML SYRINGE IVP PRN (17:07)
[2020-02-03] MEDS ORDERED: ONDANSETRON 4 MG/2 ML VIAL IVP PRN (17:07)
[2020-02-03] MEDS: HYDROmorphone 0.5 MG/0.5 ML SYRINGE IVP PRN ×2 (17:52→21:19)
[2020-02-03 17:55] LABS: Basophils % (A) 0 %; Eosinophils # (A) 0.2 k/uL (0-0.7); Eosinophils % (A) 1 %; HCT 26.7 % (34.0-46.0); HGB 8.2 gm/dL (11.4-16.0); Hypochromasia Moderate; MCH 32.8 pg (25.0-35.0); MCHC 30.7 g/dL (31.0-37.0); Macrocytosis Moderate; Mean Platelet Volume 7.9; Monocytes # (A) 0.3 k/uL (0-1.0); Monocytes % (A) 3 %; Neutrophils % (A) 42 %; Platelet Count 139 k/uL (150-450); WBC 11.9 k/uL (3.8-10.6)
[2020-02-03 18:03] LABS: Partial Thromboplastin Time 22.6 sec (22.0-30.0); Prothrombin Time 10.6 sec (9.0-12.0)
[2020-02-03 18:06] LABS: Lymphocytes # (A) 6.1 k/uL (1.0-4.8); Lymphocytes % (A) 51 %
[2020-02-03 18:07] LABS: Albumin 2.7 g/dL (3.5-5.0); Calcium 7.9 mg/dL (8.4-10.2); Total Bilirubin 0.4 mg/dL (0.2-1.3); Total Protein 4.5 g/dL (6.3-8.2)
[2020-02-03 18:47] LABS: Appearance,Urine Clear (Clear); Bilirubin,Urine Negative (Negative); Blood,Urine Negative (Negative); Color,Urine Light Yellow; Glucose,Urine (UA) Negative (Negative); Ketones,Urine Negative (Negative); Leukocyte Esterase,Urine Small (Negative); Nitrite,Urine Negative (Negative); Protein,Urine Negative (Negative); RBC,Urine 1 /hpf (0-5); Specific Gravity,Urine 1.008 (1.001-1.035); Urobilinogen,Urine <2.0 mg/dL (<2.0); WBC,Urine 4 /hpf (0-5)
[2020-02-03] MEDS: HYDROcodone/APAP 7.5-325MG 1 EACH TAB PO PRN (20:14)
[2020-02-03] MEDS ORDERED: polyethylene glycoL 3350 17 GM POWD.PACK PO PRN (22:51)
[2020-02-03] MEDS ORDERED: LORazepam 0.5 MG TAB PO PRN (22:51)
[2020-02-03] MEDS ORDERED: LORATADINE 10 MG TAB PO PRN (22:51)
[2020-02-03] MEDS ORDERED: PROMETHAZ COD PO PRN (22:51)
[2020-02-03] MEDS ORDERED: NITROGLYCERIN SL TABS 0.4 MG TAB SUBLINGUAL PRN (22:51)
[2020-02-03] MEDS ORDERED: NON FORMULARY DRUG (Vit C/E/Zn/Coppr/Lutein/Zeaxan [Preservision Areds 2 Softgel] 1 EACH C PO SCH (23:00)
[2020-02-03] MEDS: METOPROLOL TARTRATE 25 MG TAB PO SCH (23:24)
[2020-02-03] MEDS: ATORVASTATIN 40 MG TAB PO SCH (23:24)
[2020-02-04] MEDS: HYDROmorphone 0.5 MG/0.5 ML SYRINGE IVP PRN ×4 (00:45→21:19)
[2020-02-04] MEDS: LEVOTHYROXINE 100 MCG TAB PO SCH (05:33)
[2020-02-04] MEDS: HYDROcodone/APAP 7.5-325MG 1 EACH TAB PO PRN ×3 (05:33→19:41)
[2020-02-04] MEDS: ASPIRIN 81 MG PO SCH ×2 (08:11→11:47)
[2020-02-04] MEDS: Yupelri 175mcg/3ml 175 MCG INHALATION SCH (08:15)
[2020-02-04] MEDS: EZETIMIBE 10 MG TAB PO SCH (08:16)
[2020-02-04] MEDS: TORSEMIDE 20 MG TAB PO SCH (08:16)
[2020-02-04] MEDS: ESCITALOPRAM 10 MG TAB PO SCH (08:16)
[2020-02-04] MEDS: METOPROLOL TARTRATE 25 MG TAB PO SCH ×2 (08:17→21:18)
[2020-02-04] MEDS: ISOSORBIDE MONONITRATE ER 60 MG TAB.ER.24H PO SCH (08:17)
[2020-02-04] MEDS: PANTOPRAZOLE 40 MG TABLET PO SCH (08:17)
[2020-02-04] MEDS: MULTIVITAMINS, THERA 1 EACH TAB PO SCH (08:17)
[2020-02-04] MEDS ORDERED: CLOPIDOGREL 75 MG TAB PO SCH (09:00)
[2020-02-04] MEDS: BUDESONIDE 0.5 MG/2 ML NEBU INHALATION SCH ×2 (09:50→21:21)
[2020-02-04] MEDS: FORMOTEROL FUMARATE 20 MCG/2 ML NEBU INHALATION SCH ×2 (09:50→21:21)
--- NOTE | 2020-02-04 11:19 | P.HPOR ---
History of Present Illness H&P Date: 02/04/20 This is a 79 year-old female who is admitted for right hip fracture. Patient is slightly confused this morning, but does admit that she fell in her home on 02/03/2020. Patient states that she did hit her head, but she denies any loss of consciousness. Patient denies any fever/chills, numbness, weakness or tingling. Patient's past medical history is significant for CLL, heart failure, hyperlipidemia, hypertension, sleep apnea, thyroid disorder, macular degeneration, and history of skin cancer. Patient takes Plavix and aspirin for history of heart catheterization with stent placement. Review of Systems See HPI. Past Medical History Past Medical History: Cancer, Heart Failure, COPD, Hyperlipidemia, Hypertension, Sleep Apnea/CPAP/BIPAP, Thyroid Disorder Additional Past Medical History / Comment(s): CLL. sleep apnea. macular degeneration. Skin ca History of Any Multi-Drug Resistant Organisms: None Reported Past Surgical History: Heart Catheterization With Stent, Tonsillectomy Additional Past Surgical History / Comment(s): d & c Past Anesthesia/Blood Transfusion Reactions: No Reported Reaction Date of Last Stent Placement:: 2007 Past Psychological History: No Psychological Hx Reported Smoking Status: Former smoker Past Alcohol Use History: Daily Additional Past Alcohol Use History / Comment(s): 1 glass of wine daily Past Drug Use History: None Reported - Past Family History Mother Family Medical History: Congestive Heart Failure (CHF) Father Family Medical History: No Reported History Additional Family Medical History / Comment(s): "Alcohol problems" Chirrosis Medications and Allergies Home Medications Medication Instructions Recorded Confirmed Type Arformoterol Tartrate [Brovana] 15 mcg INHALATION RT-BID 10/03/16 02/03/20 History Aspirin EC [Ecotrin Low Dose] 81 mg PO DAILY 10/03/16 02/03/20 History Levothyroxine Sodium [Synthroid] 100 mcg PO DAILY 10/03/16 02/03/20 History Multivitamins, Thera [Multivitamin 1 tab PO DAILY 10/03/16 02/03/20 History (formulary)] Nitroglycerin Sl Tabs [Nitrostat] 0.4 mg SUBLINGUAL Q5M PRN 10/03/16 02/03/20 History Omeprazole [PriLOSEC] 20 mg PO DAILY 10/03/16 02/03/20 History Vit C/E/Zn/Coppr/Lutein/Zeaxan 1 cap PO BID 10/03/16 02/03/20 History [Preservision Areds 2 Softgel] Atorvastatin [Lipitor] 40 mg PO HS 05/09/19 02/03/20 History Budesonide [Pulmicort] 0.5 mg INHALATION RT-BID 05/09/19 02/03/20 History Ezetimibe [Zetia] 10 mg PO DAILY 05/09/19 02/03/20 History Levothyroxine Sodium [Synthroid] 50 mcg PO PADILLA 05/09/19 02/03/20 History Yupelri 175mcg/3ml 175 mcg INHALATION RT-DAILY 05/09/19 02/03/20 History Clopidogrel [Plavix] 75 mg PO DAILY #30 tab 05/11/19 02/03/20 Rx Albuterol Inhaler [Ventolin Hfa 2 puff INHALATION RT-QID PRN 10/02/19 02/03/20 History Inhaler] Promethaz-Cod 6.25-10 mg/5 ml 5 ml PO Q6HR PRN 10/02/19 02/03/20 History [Phenergan with Codeine] Escitalopram [Lexapro] 10 mg PO DAILY #10 tab 10/06/19 02/03/20 Rx Torsemide [Demadex] 40 mg PO DAILY #30 tab 10/06/19 02/03/20 Rx Loratadine [Claritin] 10 mg PO DAILY PRN 12/09/19 02/03/20 History LORazepam [Ativan] 0.5 mg PO BID PRN #10 tab 12/18/19 02/03/20 Rx Metoprolol Tartrate [Lopressor] 25 mg PO BID #0 tab 12/18/19 02/03/20 Rx polyethylene glycoL 3350 [Miralax] 17 gm PO HS PRN powd.pack 12/18/19 02/03/20 Rx Isosorbide Mononitrate ER [Imdur] 60 mg PO DAILY #60 tab.er.24h 01/10/20 02/03/20 Rx Allergies Allergy/AdvReac Type Severity Reaction Status Date / Time No Known Allergies Allergy Verified 02/03/20 19:01 Physical Examination On exam patient is resting comfortably in bed in no acute distress. Patient is confused this morning. On exam there is ecchymosis over the lateral aspect of the right upper thigh. Skin is intact. Limited motion of the right lower extremity due to hip fracture. Patient has good range of motion of the left lower extremity. Calves are soft and nontender to palpation. Sensation intact. Patient has good range of motion of bilateral upper extremities without pain or difficulty. Head is normocephalic and atraumatic. Patient has good range of motion of the neck without pain or difficulty. Neurovascular status and circulatory status are intact. Results X-rays of the right femur and pelvis show intertrochanteric fracture of the right femur. - Labs Labs: Abnormal Lab Results - Last 24 Hours (Table) 02/03/20 02/03/20 02/03/20 Range/Units 17:40 17:40 17:40 WBC 11.9 H (3.8-10.6) k/uL RBC 2.50 L (3.80-5.40) m/uL Hgb 8.2 L (11.4-16.0) gm/dL Hct 26.7 L (34.0-46.0) % MCV 107.0 H D (80.0-100.0) fL MCHC 30.7 L (31.0-37.0) g/dL Plt Count 139 L (150-450) k/uL Lymphocytes # 6.1 H (1.0-4.8) k/uL Carbon Dioxide 35 H (22-30) mmol/L BUN 46 H (7-17) mg/dL Creatinine 2.40 H (0.52-1.04) mg/dL Glucose 138 H (74-99) mg/dL Calcium 7.9 L (8.4-10.2) mg/dL Total Protein 4.5 L (6.3-8.2) g/dL Albumin 2.7 L (3.5-5.0) g/dL Ur Leukocyte Esterase Small H (Negative) H & H 02/03/20 Range/Units 17:40 Hgb 8.2 L (11.4-16.0) gm/dL Hct 26.7 L (34.0-46.0) % Coagulation 02/03/20 Range/Units 17:40 INR 1.0 (<1.2) Result Diagrams: 02/03/20 17:40 02/03/20 17:40 Assessment and Plan (1) Fall Current Visit: Yes Status: Acute Code(s): W19.XXXA - UNSPECIFIED FALL, INITIAL ENCOUNTER SNOMED Code(s): 5714695 (2) Fracture, intertrochanteric, right femur Current Visit: Yes Status: Acute Code(s): S72.141A - DISPLACED INTERTROCHANTERIC FRACTURE OF RIGHT FEMUR, INIT SNOMED Code(s): 170286198 Plan: 1. Continue pain control. 2. Appreciate input from medicine. 3. Plavix is being held. 4. NPO after midnight. 5. Imaging is reviewed. Planning for Gamma Nail Right IT hip fracture on 02/05/2020 pending medical clearance and patient consent.
--- NOTE | 2020-02-04 13:04 | CONS ---
CONSULTATION Mrs. Martinez is a 79-year-old female who presented with a fall and a right hip fracture. She did not have syncope. The patient was admitted to the hospital. Cardiology consultation was requested for surgical intervention. The patient has a known history of coronary artery disease, has underwent stenting done in the past in 2004 and 2007, has a history of significant pulmonary hypertension. She had an echocardiogram obtained in December of this year that showed an ejection fraction of 50% to 55% with severe pulmonary hypertension measuring 61 mmHg. She has a prior history of smoking. She stopped about 7 years ago. She has advanced COPD with home oxygen used. Patient has declined CPAP in the past. She also has a history of CLL. She had progressive chronic kidney disease and had started dialysis in December. She has been seen by Dr. morrison from the cardiology standpoint. She denies any chest discomfort. She has chronic stable dyspnea on exertion, occasional peripheral edema, no clear PND. No orthopnea. No dizziness. No syncope. Her coronary risk factors are remarkable for the prior history of smoking. She is hypertensive and hyperlipidemic. She is nondiabetic. MEDICATION: At home include Brovana, aspirin once a day, Lipitor 40 mg daily, Pulmicort, Plavix 75 mg daily, Lexapro, Zetia 10 mg daily, Imdur 60 mg daily, levothyroxine, metoprolol tartrate 25 mg twice a day, Demodex 40 mg daily, Prilosec. REVIEW OF SYSTEMS: RESPIRATORY SYSTEM: She had dyspnea on exertion, chronic obstructive lung disease. GI SYSTEM: No recent GI bleeding. No peptic ulcer disease. SYSTEM: She has end-stage renal disease on hemodialysis. NERVOUS SYSTEM: No stroke or seizure. PHYSICAL EXAMINATION: She is a 79-year-old female, alert, oriented, in no apparent distress. Blood pressure 101/60 with a heart rate in the 80s. HEAD: Normocephalic. EYES: Sclerae nonicteric. NECK: No bruit. LUNGS: No wheezes or rales. HEART: Regular rate and rhythm, S1, S2. No S3 with systolic murmur heard at the base. No diastolic murmur, no rub. ABDOMEN: Soft, obese, nontender. EXTREMITIES: Trace edema. LAB DATA: Revealed hemoglobin of 8.2, which is relatively stable. White blood cell of 11.9. Her BUN and creatinine 46 and 2.4, potassium 4.0. Her EKG revealed a sinus mechanism normal axis and intervals with nonspecific T-wave inversion anteriorly compared with the old EKG obtained earlier this month. She had some nonspecific changes as well at that time. Patient in December had an episode of atrial fibrillation that subsequently converted back to sinus mechanism. IMPRESSION: 1. Status post fall and fracture of the right hip, scheduled to undergo surgical intervention. 2. History of coronary disease stable with no evidence of active ischemic heart disease. 3. History of advanced chronic obstructive lung disease with pulmonary hypertension. 4. History of CLL. 5. History of hypertension. 6. Hyperlipidemia. 7. End-stage renal disease, on hemodialysis. RECOMMENDATION: From the cardiac standpoint, her Plavix will be stopped at this time. She is not required to stay on it. I would recommend to continue on the aspirin 81 mg daily. Will continue on the beta ev as present. The patient has an increased risk for her surgical intervention in view of her lung disease, but she is stable at this time and I see no absolute contraindication. Thank you for this consult. Will follow with you. MMODL / IJN: [id number] /
--- NOTE | 2020-02-04 13:21 | P.NPCON ---
History of Present Illness - Reason for Consult acute renal failure, chronic renal failure - History of Present Illness Reason for consultation: Acute kidney injury on chronic kidney disease History of present illness: Patient is a 79-year-old female seen in renal consultation for acute kidney injury on chronic kidney disease. Patient has chronic kidney disease stage III with baseline creatinine in the range of 1-1.5. Patient was started on hemodialysis in January 2020 due to worsening renal failure and volume overload. Patient has a history of chronic diastolic CHF and moderate to severe tricuspid regurgitation and severe pulmonary hypertension. She was taken off hemodialysis but a week ago due to recovery of renal function. She has a permacath. Creatinine today is 2.4. Patient presented to the hospital after she sustained a fall while trying to locker door. Patient states she tripped and fell down. She denies any dizziness or syncopal episodes. She is noted to have a right hip fracture and is being cleared for surgery. She denies chest pain or shortness of breath. She currently has a Boggs catheter. She admits to good urine output. No vomiting or diarrhea. No fever or chills. Vital signs are stable. General: The patient appeared well nourished and normally developed. HEENT: Head exam is unremarkable. Neck is without jugular venous distension. LUNGS: Lungs are clear to auscultation and percussion. Breath sounds decreased. HEART: Rate and Rhythm are regular. ABDOMEN: Soft, nontender. EXTREMITITES: No edema. Past Medical History Past Medical History: Cancer, Heart Failure, COPD, Hyperlipidemia, Hypertension, Sleep Apnea/CPAP/BIPAP, Thyroid Disorder Additional Past Medical History / Comment(s): CLL. sleep apnea. macular degeneration. Skin ca History of Any Multi-Drug Resistant Organisms: None Reported Past Surgical History: Heart Catheterization With Stent, Tonsillectomy Additional Past Surgical History / Comment(s): d & c Past Anesthesia/Blood Transfusion Reactions: No Reported Reaction Date of Last Stent Placement:: 2007 Past Psychological History: No Psychological Hx Reported Smoking Status: Former smoker Past Alcohol Use History: Daily Additional Past Alcohol Use History / Comment(s): 1 glass of wine daily Past Drug Use History: None Reported - Past Family History Mother Family Medical History: Congestive Heart Failure (CHF) Father Family Medical History: No Reported History Additional Family Medical History / Comment(s): "Alcohol problems" Chirrosis Medications and Allergies Home Medications Medication Instructions Recorded Confirmed Type Arformoterol Tartrate [Brovana] 15 mcg INHALATION RT-BID 10/03/16 02/03/20 History Aspirin EC [Ecotrin Low Dose] 81 mg PO DAILY 10/03/16 02/03/20 History Levothyroxine Sodium [Synthroid] 100 mcg PO DAILY 10/03/16 02/03/20 History Multivitamins, Thera [Multivitamin 1 tab PO DAILY 10/03/16 02/03/20 History (formulary)] Nitroglycerin Sl Tabs [Nitrostat] 0.4 mg SUBLINGUAL Q5M PRN 10/03/16 02/03/20 History Omeprazole [PriLOSEC] 20 mg PO DAILY 10/03/16 02/03/20 History Vit C/E/Zn/Coppr/Lutein/Zeaxan 1 cap PO BID 10/03/16 02/03/20 History [Preservision Areds 2 Softgel] Atorvastatin [Lipitor] 40 mg PO HS 05/09/19 02/03/20 History Budesonide [Pulmicort] 0.5 mg INHALATION RT-BID 05/09/19 02/03/20 History Ezetimibe [Zetia] 10 mg PO DAILY 05/09/19 02/03/20 History Levothyroxine Sodium [Synthroid] 50 mcg PO PADILLA 05/09/19 02/03/20 History Yupelri 175mcg/3ml 175 mcg INHALATION RT-DAILY 05/09/19 02/03/20 History Clopidogrel [Plavix] 75 mg PO DAILY #30 tab 05/11/19 02/03/20 Rx Albuterol Inhaler [Ventolin Hfa 2 puff INHALATION RT-QID PRN 10/02/19 02/03/20 History Inhaler] Promethaz-Cod 6.25-10 mg/5 ml 5 ml PO Q6HR PRN 10/02/19 02/03/20 History [Phenergan with Codeine] Escitalopram [Lexapro] 10 mg PO DAILY #10 tab 10/06/19 02/03/20 Rx Torsemide [Demadex] 40 mg PO DAILY #30 tab 10/06/19 02/03/20 Rx Loratadine [Claritin] 10 mg PO DAILY PRN 12/09/19 02/03/20 History LORazepam [Ativan] 0.5 mg PO BID PRN #10 tab 12/18/19 02/03/20 Rx Metoprolol Tartrate [Lopressor] 25 mg PO BID #0 tab 12/18/19 02/03/20 Rx polyethylene glycoL 3350 [Miralax] 17 gm PO HS PRN powd.pack 12/18/19 02/03/20 Rx Isosorbide Mononitrate ER [Imdur] 60 mg PO DAILY #60 tab.er.24h 01/10/20 02/03/20 Rx Allergies Allergy/AdvReac Type Severity Reaction Status Date / Time No Known Allergies Allergy Verified 02/03/20 19:01 Physical Exam Vitals: Vital Signs Temp Pulse Pulse Resp BP BP Pulse Ox 02/04/20 07:39 98.3 F 88 20 101/61 90 L 02/04/20 03:07 75 18 02/04/20 01:10 97.8 F 74 15 103/63 92 L 02/03/20 23:58 75 18 106/75 92 L 02/03/20 20:16 79 18 110/87 90 L 02/03/20 16:02 96.9 F L 73 18 122/67 92 L Intake and Output 02/03/20 02/04/20 02/04/20 22:59 06:59 14:59 Intake Total 0 Output Total 600 Balance -600 Intake: Oral 0 Output: Urine 600 Other: Voiding Method Indwelling Catheter Weight 81.647 kg Results - Lab Results Most recent lab results Calcium 7.9 mg/dL (8.4-10.2) L 02/03/20 17:40 02/03/20 17:40 02/03/20 17:40 Assessment and Plan Plan: Assessment: 1. Acute kidney injury secondary to ATN secondary to cardiorenal syndrome. Recently taken off hemodialysis about 10 days ago due to recovery of renal function. Creatinine 2.4 today. 2. Chronic diastolic CHF with tricuspid regurgitation and severe pulmonary hypertension. 3. Status post fall with right hip fracture. 4. Chronic kidney disease stage III with baseline creatinine 1-1.5 prior to initiating hemodialysis. Etiology is nephrosclerosis. UA is benign. 5. Anemia of chronic kidney disease. Rule out iron deficiency. Plan: Maintain Demadex. Hold off on hemodialysis. Continue to monitor renal function and urine output. Check iron studies. Add Aranesp. Thank you for the consultation. I will continue to follow the patient with you during her hospital stay.
[2020-02-04] MEDS: DARBEPOETIN ALFA 40 MCG/0.4 ML SYRINGE SQ SCH (16:38)
--- NOTE | 2020-02-04 18:01 | P.CNPUL ---
History of Present Illness Consult date: 02/04/20 Chief complaint: Fall, right hip fracture History of present illness: This is a 79-year-old white female patient who is known to our practice, meenakshi fermin has a known history of advanced COPD, on home oxygen and patient wears 4 L of oxygen per nasal cannula, severe obstructive sleep apnea and patient declined CPAP therapy, history of CAD, history of CLL, severe pulmonary hypertension with right-sided heart failure. Patient follows with Dr. Zaragoza in the pulmonary clinic. Patient also has history of chronic kidney failure, and during her ho spitalization in December 2019 patient was found to have worsening renal function, requiring initiation of hemodialysis for signs of fluid overload, acute CHF exacerbation, acute metabolic acidosis, and hypokalemia. Patient had recovered from that episode, she states currently her hemodialysis is on hold, although she still has a right subclavian hemodialysis catheter in place. On 02/03/2020 patient presented to the emergency department after sustaining a fall at home, apparently patient was trying to open the door for her occupational therapist to enter who is treating her left wrist. Patient fell backward striking her head and falling onto her right hip. Immediately she started complaining of severe right hip pain and right leg pain. Patient was following with Dr. Angeles for her left wrist fracture. She is not on any blood thinners, she denied any loss of consciousness, no neck or back pain. Patient was brought into the emergency department per EMS for evaluation and treatment. X-ray of the right hip showed comminuted anterior trochanteric fracture of the right hip, x-ray of the pelvis showed comminuted intertrochanteric fracture of the right hip. CT of the head and cervical spine was completed showing chronic white matter ischemic changes, cervical kyphosis without spinal canal stenosis, lower bilateral foraminal narrowing of C5-6 and C6-7, no acute osseous abnormality. Patient was seen by orthopedic surgery and the surgery for repair of the right hip is planned for tomorrow, patient denies any worsening breathing, her chest x-ray on admission showed mild infiltrate at the left costophrenic angle, the possibility of atelectasis, she is currently on 4 L of oxygen, her pulse ox between 90-92%, hemodynamically she is been stable, she's been afebrile, breathing comfortably, lung sounds are clear with diminished breath sounds at the bases, her lab work showed white blood cell count of 11.9, hemoglobin was 8.2, sodium was 139, potassium is 4.0, chloride is 102, CO2 35, B1 is 46 and creatinine is 2.4, her urinalysis was negative for infection. Review of Systems All systems: negative Constitutional: Denies chills, Denies fever Eyes: denies blurred vision, denies pain Ears, nose, mouth and throat: Denies headache, Denies sore throat Cardiovascular: Denies chest pain, Denies shortness of breath Respiratory: Denies cough Gastrointestinal: Denies abdominal pain, Denies diarrhea, Denies nausea, Denies vomiting Genitourinary: Denies dysuria, Denies hematuria Musculoskeletal: Denies myalgias Musculoskeletal: right: hip pain Integumentary: Denies pruritus, Denies rash Neurological: Denies numbness, Denies weakness Psychiatric: Denies anxiety, Denies depression Endocrine: Denies fatigue, Denies weight change Past Medical History Past Medical History: Cancer, Heart Failure, COPD, Hyperlipidemia, Hypertension, Sleep Apnea/CPAP/BIPAP, Thyroid Disorder Additional Past Medical History / Comment(s): CLL. sleep apnea. macular degeneration. Skin ca History of Any Multi-Drug Resistant Organisms: None Reported Past Surgical History: Heart Catheterization With Stent, Tonsillectomy Additional Past Surgical History / Comment(s): d & c Past Anesthesia/Blood Transfusion Reactions: No Reported Reaction Date of Last Stent Placement:: 2007 Past Psychological History: No Psychological Hx Reported Smoking Status: Former smoker Past Alcohol Use History: Daily Additional Past Alcohol Use History / Comment(s): 1 glass of wine daily Past Drug Use History: None Reported - Past Family History Mother Family Medical History: Congestive Heart Failure (CHF) Father Family Medical History: No Reported History Additional Family Medical History / Comment(s): "Alcohol problems" Chirrosis Medications and Allergies Home Medications Medication Instructions Recorded Confirmed Type Arformoterol Tartrate [Brovana] 15 mcg INHALATION RT-BID 10/03/16 02/03/20 History Aspirin EC [Ecotrin Low Dose] 81 mg PO DAILY 10/03/16 02/03/20 History Levothyroxine Sodium [Synthroid] 100 mcg PO DAILY 10/03/16 02/03/20 History Multivitamins, Thera [Multivitamin 1 tab PO DAILY 10/03/16 02/03/20 History (formulary)] Nitroglycerin Sl Tabs [Nitrostat] 0.4 mg SUBLINGUAL Q5M PRN 10/03/16 02/03/20 History Omeprazole [PriLOSEC] 20 mg PO DAILY 10/03/16 02/03/20 History Vit C/E/Zn/Coppr/Lutein/Zeaxan 1 cap PO BID 10/03/16 02/03/20 History [Preservision Areds 2 Softgel] Atorvastatin [Lipitor] 40 mg PO HS 05/09/19 02/03/20 History Budesonide [Pulmicort] 0.5 mg INHALATION RT-BID 05/09/19 02/03/20 History Ezetimibe [Zetia] 10 mg PO DAILY 05/09/19 02/03/20 History Levothyroxine Sodium [Synthroid] 50 mcg PO PADILLA 05/09/19 02/03/20 History Yupelri 175mcg/3ml 175 mcg INHALATION RT-DAILY 05/09/19 02/03/20 History Clopidogrel [Plavix] 75 mg PO DAILY #30 tab 05/11/19 02/03/20 Rx Albuterol Inhaler [Ventolin Hfa 2 puff INHALATION RT-QID PRN 10/02/19 02/03/20 History Inhaler] Promethaz-Cod 6.25-10 mg/5 ml 5 ml PO Q6HR PRN 10/02/19 02/03/20 History [Phenergan with Codeine] Escitalopram [Lexapro] 10 mg PO DAILY #10 tab 10/06/19 02/03/20 Rx Torsemide [Demadex] 40 mg PO DAILY #30 tab 10/06/19 02/03/20 Rx Loratadine [Claritin] 10 mg PO DAILY PRN 12/09/19 02/03/20 History LORazepam [Ativan] 0.5 mg PO BID PRN #10 tab 12/18/19 02/03/20 Rx Metoprolol Tartrate [Lopressor] 25 mg PO BID #0 tab 12/18/19 02/03/20 Rx polyethylene glycoL 3350 [Miralax] 17 gm PO HS PRN powd.pack 12/18/19 02/03/20 Rx Isosorbide Mononitrate ER [Imdur] 60 mg PO DAILY #60 tab.er.24h 01/10/20 02/03/20 Rx Allergies Allergy/AdvReac Type Severity Reaction Status Date / Time No Known Allergies Allergy Verified 02/03/20 19:01 Physical Exam Vitals: Vital Signs Temp Pulse Pulse Resp BP BP Pulse Ox 02/04/20 14:00 98.2 F 87 16 97/59 90 L 02/04/20 07:39 98.3 F 88 20 101/61 90 L 02/04/20 03:07 75 18 02/04/20 01:10 97.8 F 74 15 103/63 92 L 02/03/20 23:58 75 18 106/75 92 L 02/03/20 20:16 79 18 110/87 90 L Intake and Output 02/04/20 02/04/20 02/04/20 06:59 14:59 22:59 Intake Total 0 Output Total 600 Balance -600 Intake: Oral 0 Output: Urine 600 Other: Voiding Method Indwelling Catheter GENERAL EXAM: Alert, very pleasant, 79-year-old white female, unfortunately liters of oxygen with pulse ox of 90% comfortable in no apparent distress. HEAD: Normocephalic/atraumatic. EYES: Normal reaction of pupils, equal size. Conjunctiva pink, sclera white. NOSE: Clear with pink turbinates. THROAT: No erythema or exudates. NECK: No masses, no JVD, no thyroid enlargement, no adenopathy. CHEST: No chest wall deformity. Symmetrical expansion. LUNGS: Equal air entry with no crackles, wheeze, rhonchi or dullness. CVS: Regular rate and rhythm, normal S1 and S2, no gallops, no murmurs, no rubs ABDOMEN: Soft, nontender. No hepatosplenomegaly, normal bowel sounds, no guarding or rigidity. EXTREMITIES: No clubbing, no edema, no cyanosis, 2+ pulses and upper and lower extremities. Right hip is tender, related to recent history of fracture MUSCULOSKELETAL: Muscle strength and tone normal. SPINE: No scoliosis or deformity SKIN: No rashes CENTRAL NERVOUS SYSTEM: Alert and oriented -3. No focal deficits, tone is normal in all 4 extremities. PSYCHIATRIC: Alert and oriented -3. Appropriate affect. Intact judgment and insight. Results - Laboratory Findings CBC and BMP: 02/03/20 17:40 02/03/20 17:40 PT/INR, D-dimer PT 10.6 sec (9.0-12.0) 02/03/20 17:40 INR 1.0 (<1.2) 02/03/20 17:40 Abnormal lab findings: Abnormal Labs 02/03/20 02/03/20 02/03/20 17:40 17:40 17:40 WBC 11.9 H RBC 2.50 L Hgb 8.2 L Hct 26.7 L MCV 107.0 H D MCHC 30.7 L Plt Count 139 L Lymphocytes # 6.1 H Carbon Dioxide 35 H BUN 46 H Creatinine 2.40 H Glucose 138 H Calcium 7.9 L Total Protein 4.5 L Albumin 2.7 L Ur Leukocyte Esterase Small H - Diagnostic Findings Chest x-ray: report reviewed, image reviewed Additional studies: X-ray of the right hip and pelvis Assessment and Plan Plan: Assessment: #1. Acute right hip fracture, following a fall at home, with x-ray of the right hip and pelvis showing acute right comminuted intratrochanteric fracture, awaiting surgery tomorrow on 02/04/2020 #2. Advanced COPD on home oxygen on 4 L on a regular basis #3. History of severe obstructive sleep apnea had previously declined CPAP therapy #4. History of coronary artery disease with previous stenting #5. History of CLL #6. Severe pulmonary hypertension with a preserved LV function and ejection fraction of 55% #7. Chronic kidney disease most recently was initiated on hemodialysis in December 2019, hemodialysis is currently on hold, and patient still has a hemo dialysis catheter in the right subclavian area #8. Former smoker #9. Hypothyroidism #10. History of hypogammaglobulinemia #11. 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 No worsening dyspnea, patient is cleared for surgery tomorrow for repair of the right hip fracture. We'll continue to closely follow in the postoperative period I performed a history & physical examination of the patient and discussed their management with my nurse practitioner, Laurel Valadez. I reviewed the nurse practitioner's note and agree with the documented findings and plan of care. Lung sounds are positive for diminished breath sounds. The findings and the impression was discussed with the patient. I attest to the documentation by the nurse practitioner. Time with Patient: Greater than 30
[2020-02-04] MEDS: ATORVASTATIN 40 MG TAB PO SCH (21:18)
--- NOTE | 2020-02-04 21:26 | P.CONS ---
History of Present Illness - Reason for Consult Consult date: 02/04/20 Medical management Requesting physician: Al Angeles - Chief Complaint Left hip pain - History of Present Illness History of presenting complaint: This is a very pleasant 79-year-old patient of Dr. Steph Dooley. Chronic stable medical conditions include hyperlipidemia, hypertension, obstructive sleep apnea does not use a CPAP machine, hypothyroid, CLL, macular degeneration, coronary artery disease with stent/2007. Home oxygen 4-5 L. . Admitted on January 06 with unstable angina. Nitrates was added. PE was ruled out. Patient now tripped and fell falling on her left hip. Has a fracture. Is on home oxygen on 4 L. Patient's hemodialysis of been on hold for a few days. No chest pain or palpitation. Breathing is stable. No fever no chills. Otherwise at her baseline. No chest pain. Review of systems: GEN.: Tired EYES: None HEENT: None NECK: None RESPIRATORY: As above CARDIOVASCULAR: As above GASTROINTESTINAL: None GENITOURINARY: None MUSCULOSKELETAL: Joint pains especially left hip LYMPHATICS: None HEMATOLOGICAL: None PSYCHIATRY: Slightly anxious NEUROLOGICAL: None Past medical history to include: COPD, CHF, hyperlipidemia, hypertension, obstructive sleep apnea does not use CPAP, hypothyroid, CLL, macular degeneration, skin cancer, coronary artery disease with stent, home oxygen 4 L Social history: Does smoke in the past. No alcohol. Lives alone. Does use a cane Physical examination: VITAL SIGNS: 98.3, 88, 20, 101/61, 90% on 5 L GENERAL: BMI 30.9, laying in bed, awake EYES: Pupils equal. Conjunctiva normal. HEENT: External appearance of nose and ears normal, oral cavity grossly normal. NECK: JVD unable to assess masses not palpable. HEART: First and second heart sounds are normal; mild edema present LUNGS: Respiratory rate increased, decreased breath sounds ABDOMEN: Soft, nontender, liver spleen not palpable, no masses palpable. PSYCH: Alert and oriented x3; mood and affect normal. NEUROLOGICAL: Cranial nerves grossly intact; no facial asymmetry, power and sensation grossly intact. LYMPHATICS: No lymph nodes palpable in the axilla and neck MUSCULAR skeletal: Evidence of OA. Limited range of motion on left hip. Investigations: White count 11.9 hemoglobin 8.2 platelets 139 potassium 4.0 bun 46 creatinine 2 .40 EKG tracing personally reviewed by me-normal sinus rhythm, some flipped T waves in anterior leads Hip x-ray-ID fractured the right femur Chest x-ray film personally reviewed by me-, rotated some chronic changes 2-D echocardiogram [December 2019]-shows moderate concentric LVH and EF of 50-55% %, moderate to severe tricuspid regurgitation, severe pulmonary hypertension Assessment: -Mechanical fall leading to a right femur intertrochanteric fracture - COPD in an ex-smoker -Chronic congestive heart failure exacerbation from diastolic dysfunction EF 50- 55% % from underlying coronary artery disease -chronic hypoxic respiratory failure, on baseline 4 L oxygen at home -Moderate to severe tricuspid regurgitation, non-rheumatic -Secondary severe pulmonary hypertension -Essential hypertension -Diabetes mellitus II, -Hyperlipidemia -Hypothyroid -CLL -Chronic macular degeneration -Coronary artery disease with prior history of stent -Obesity BMI 32.6 -Chronic gait dysfunction uses a cane -Chronic kidney stage III -Acute kidney injury secondary to ATN secondary to cardiorenal syndrome. Annabelle turcios taken off hemodialysis about 10 days ago due to recovery renal function.. 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 Patient's Plavix can be discontinu ed. Continue aspirin. Patient is otherwise medically stable. She is a moderate risk from a cardiovascular standpoint. And from upon we standpoint. With no carotid medications to surgery. This was discussed with the patient. Consultations been made to pulmonary, cardiogenic, and nephrology. Care was discussed with the patient. Thank you Dr. Angeles Past Medical History Past Medical History: Cancer, Heart Failure, COPD, Hyperlipidemia, Hypertension, Sleep Apnea/CPAP/BIPAP, Thyroid Disorder Additional Past Medical History / Comment(s): CLL. sleep apnea. macular degeneration. Skin ca History of Any Multi-Drug Resistant Organisms: None Reported Past Surgical History: Heart Catheterization With Stent, Tonsillectomy Additional Past Surgical History / Comment(s): d & c Past Anesthesia/Blood Transfusion Reactions: No Reported Reaction Date of Last Stent Placement:: 2007 Past Psychological History: No Psychological Hx Reported Smoking Status: Former smoker Past Alcohol Use History: Daily Additional Past Alcohol Use History / Comment(s): 1 glass of wine daily Past Drug Use History: None Reported - Past Family History Mother Family Medical History: Congestive Heart Failure (CHF) Father Family Medical History: No Reported History Additional Family Medical History / Comment(s): "Alcohol problems" Chirrosis Medications and Allergies Home Medications Medication Instructions Recorded Confirmed Type Arformoterol Tartrate [Brovana] 15 mcg INHALATION RT-BID 10/03/16 02/03/20 History Aspirin EC [Ecotrin Low Dose] 81 mg PO DAILY 10/03/16 02/03/20 History Levothyroxine Sodium [Synthroid] 100 mcg PO DAILY 10/03/16 02/03/20 History Multivitamins, Thera [Multivitamin 1 tab PO DAILY 10/03/16 02/03/20 History (formulary)] Nitroglycerin Sl Tabs [Nitrostat] 0.4 mg SUBLINGUAL Q5M PRN 10/03/16 02/03/20 History Omeprazole [PriLOSEC] 20 mg PO DAILY 10/03/16 02/03/20 History Vit C/E/Zn/Coppr/Lutein/Zeaxan 1 cap PO BID 10/03/16 02/03/20 History [Preservision Areds 2 Softgel] Atorvastatin [Lipitor] 40 mg PO HS 05/09/19 02/03/20 History Budesonide [Pulmicort] 0.5 mg INHALATION RT-BID 05/09/19 02/03/20 History Ezetimibe [Zetia] 10 mg PO DAILY 05/09/19 02/03/20 History Levothyroxine Sodium [Synthroid] 50 mcg PO PADILLA 05/09/19 02/03/20 History Yupelri 175mcg/3ml 175 mcg INHALATION RT-DAILY 05/09/19 02/03/20 History Clopidogrel [Plavix] 75 mg PO DAILY #30 tab 05/11/19 02/03/20 Rx Albuterol Inhaler [Ventolin Hfa 2 puff INHALATION RT-QID PRN 10/02/19 02/03/20 History Inhaler] Promethaz-Cod 6.25-10 mg/5 ml 5 ml PO Q6HR PRN 10/02/19 02/03/20 History [Phenergan with Codeine] Escitalopram [Lexapro] 10 mg PO DAILY #10 tab 10/06/19 02/03/20 Rx Torsemide [Demadex] 40 mg PO DAILY #30 tab 10/06/19 02/03/20 Rx Loratadine [Claritin] 10 mg PO DAILY PRN 12/09/19 02/03/20 History LORazepam [Ativan] 0.5 mg PO BID PRN #10 tab 12/18/19 02/03/20 Rx Metoprolol Tartrate [Lopressor] 25 mg PO BID #0 tab 12/18/19 02/03/20 Rx polyethylene glycoL 3350 [Miralax] 17 gm PO HS PRN powd.pack 12/18/19 02/03/20 Rx Isosorbide Mononitrate ER [Imdur] 60 mg PO DAILY #60 tab.er.24h 01/10/20 02/03/20 Rx Allergies Allergy/AdvReac Type Severity Reaction Status Date / Time No Known Allergies Allergy Verified 02/03/20 19:01 Physical Exam Vitals: Vital Signs Temp Pulse Pulse Resp BP BP Pulse Ox 02/04/20 07:39 98.3 F 88 20 101/61 90 L 02/04/20 03:07 75 18 02/04/20 01:10 97.8 F 74 15 103/63 92 L 02/03/20 23:58 75 18 106/75 92 L 02/03/20 20:16 79 18 110/87 90 L 02/03/20 16:02 96.9 F L 73 18 122/67 92 L Intake and Output 02/03/20 02/04/20 02/04/20 22:59 06:59 14:59 Intake Total 0 Output Total 600 Balance -600 Intake: Oral 0 Output: Urine 600 Other: Voiding Method Indwelling Catheter Weight 81.647 kg Results CBC & Chem 7: 02/03/20 17:40 02/03/20 17:40 Labs: Abnormal Lab Results - Last 24 Hours (Table) 02/03/20 02/03/20 02/03/20 Range/Units 17:40 17:40 17:40 WBC 11.9 H (3.8-10.6) k/uL RBC 2.50 L (3.80-5.40) m/uL Hgb 8.2 L (11.4-16.0) gm/dL Hct 26.7 L (34.0-46.0) % MCV 107.0 H D (80.0-100.0) fL MCHC 30.7 L (31.0-37.0) g/dL Plt Count 139 L (150-450) k/uL Lymphocytes # 6.1 H (1.0-4.8) k/uL Carbon Dioxide 35 H (22-30) mmol/L BUN 46 H (7-17) mg/dL Creatinine 2.40 H (0.52-1.04) mg/dL Glucose 138 H (74-99) mg/dL Calcium 7.9 L (8.4-10.2) mg/dL Total Protein 4.5 L (6.3-8.2) g/dL Albumin 2.7 L (3.5-5.0) g/dL Ur Leukocyte Esterase Small H (Negative)
[2020-02-05] MEDS: ALBUTEROL HFA INHALER INHALATION PRN ×3 (05:41→19:38)
[2020-02-05] MEDS: LEVOTHYROXINE 100 MCG TAB PO SCH (06:19)
[2020-02-05] MEDS: ASPIRIN 81 MG PO SCH (07:52)
[2020-02-05] MEDS: PANTOPRAZOLE 40 MG TABLET PO SCH (07:52)
[2020-02-05] MEDS: ESCITALOPRAM 10 MG TAB PO SCH (07:52)
[2020-02-05] MEDS: EZETIMIBE 10 MG TAB PO SCH (07:53)
[2020-02-05] MEDS: MULTIVITAMINS, THERA 1 EACH TAB PO SCH (07:53)
[2020-02-05] MEDS: TORSEMIDE 20 MG TAB PO SCH (07:53)
[2020-02-05] MEDS: BUDESONIDE 0.5 MG/2 ML NEBU INHALATION SCH ×2 (08:23→19:38)
[2020-02-05] MEDS: FORMOTEROL FUMARATE 20 MCG/2 ML NEBU INHALATION SCH ×2 (08:24→20:15)
[2020-02-05] MEDS: METOPROLOL TARTRATE 25 MG TAB PO SCH ×2 (09:24→21:01)
[2020-02-05] MEDS: ISOSORBIDE MONONITRATE ER 60 MG TAB.ER.24H PO SCH (09:24)
--- NOTE | 2020-02-05 09:57 | P.PN ---
Subjective Progress Note Date: 02/05/20 HISTORY OF PRESENT ILLNESS: Patient examined this morning at the bedside. Patient appears confused and agitated. Per the nurse, she has been receiving Gary and Dilaudid. She is scheduled for surgical intervention of her hip fracture today. She denies chest pain or pressure. She reports mild shortness of breath. PHYSICAL EXAM: VITAL SIGNS: Reviewed. GENERAL: Well-developed in no acute distress. NECK: Supple. No JVD or thyromegaly LUNGS: Respirations even and unlabored. Lungs essentially clear to auscultation bilaterally. HEART: Regular rate and rhythm. S1 and S2 heard. Systolic murmur noted EXTREMITIES: Normal range of motion. No clubbing or cyanosis. Peripheral pulses intact. Trace bilateral lower extremity edema ASSESSMENT: Right hip fracture, status post fall History of coronary artery disease with previous PCI in 2004 and 2007 Advanced COPD with pulmonary hypertension Hypertension History of CLL Hyperlipidemia End-stage renal disease on hemodialysis PLAN: Continue current cardiac medications Patient is at increased risk for surgical intervention secondary to her multiple comorbidities, however there are no absolute contraindications for her to undergo surgery from a cardiac standpoint Nurse practitioner note has been reviewed by physician. Signing provider agrees with the documented findings, assessment, and plan of care. Objective - Vital Signs Vital signs: Vital Signs Temp 98.4 F 02/05/20 06:00 Pulse 96 02/05/20 06:00 Resp 24 02/05/20 06:00 BP 104/63 02/05/20 06:00 Pulse Ox 90 L 02/05/20 06:00 Intake & Output 02/04/20 02/05/20 02/05/20 18:59 06:59 18:59 Output Total 220 275 Balance -220 -275 Output: Urine 220 275 Other: Voiding Method Indwelling Catheter - Labs CBC & Chem 7: 02/03/20 17:40 02/03/20 17:40
[2020-02-05] MEDS: HYDROcodone/APAP 7.5-325MG 1 EACH TAB PO PRN (10:22)
--- NOTE | 2020-02-05 10:50 | P.PN ---
Subjective Patient is seen in follow-up for acute kidney injury on chronic kidney disease. Creatinine 2.4 as of yesterday. Scheduled for hip surgery today. She was confused this morning. Urine output 300 mL overnight. Vital signs are stable. General: The patient appeared well nourished and normally developed. HEENT: Head exam is unremarkable. Neck is without jugular venous distension. LUNGS: Breath sounds decreased. HEART: Rate and Rhythm are regular. ABDOMEN: Soft, nontender. EXTREMITITES: No edema. Objective - Vital Signs Vital signs: Vital Signs Temp 98.4 F 02/05/20 06:00 Pulse 96 02/05/20 06:00 Resp 24 02/05/20 06:00 BP 104/63 02/05/20 06:00 Pulse Ox 90 L 02/05/20 06:00 Intake & Output 02/04/20 02/05/20 02/05/20 18:59 06:59 18:59 Output Total 220 275 Balance -220 -275 Output: Urine 220 275 Other: Voiding Method Indwelling Catheter - Labs CBC & Chem 7: 02/03/20 17:40 02/03/20 17:40 Assessment and Plan Plan: Assessment: 1. Acute kidney injury secondary to ATN secondary to cardiorenal syndrome. Recently taken off hemodialysis due to recovery of renal function. Creatinine 2.4 as of yesterday. 2. Chronic diastolic CHF with tricuspid regurgitation and severe pulmonary hypertension. 3. Status post fall with right hip fracture. Scheduled for surgery today. 4. Chronic kidney disease stage III with baseline creatinine 1-1.5 prior to initiating hemodialysis. Etiology is nephrosclerosis. UA is benign. 5. Anemia of chronic kidney disease. Rule out iron deficiency. Maintained on Aranesp. Plan: Hold Demadex. Continue to hold hemodialysis. Continue to monitor renal function and urine output. Follow-up iron studies.
[2020-02-05] MEDS ORDERED: IV FLUID CONTINUATION 1,000 ML IV ONE (11:22)
[2020-02-05 11:24] LABS: % Iron Saturation 14.83 (12.00-45.00)
[2020-02-05] MEDS: Yupelri 175mcg/3ml 175 MCG INHALATION SCH (11:30)
[2020-02-05] MEDS ORDERED: PHENYLEPHRINE-0.9% NACL SYG 1 MG/10 ML SYRINGE ONE (12:59)
[2020-02-05] MEDS ORDERED: fentaNYL (PF) 50 MCG/ML 2 ML AMP ONE (12:59)
[2020-02-05] MEDS ORDERED: PROPOFOL 10 MG/ML 20 ML VIAL IV ONE (12:59)
[2020-02-05] MEDS ORDERED: SUCCINYLCHOLINE CHLORIDE 100 MG/5 ML SYR IV ONE (12:59)
[2020-02-05] MEDS ORDERED: LIDOCAINE 1% INJ 10MG/ML (20 ML MDV) ONE (12:59)
[2020-02-05] MEDS ORDERED: SODIUM CHLORIDE 0.9% 100 ML with ceFAZolin 2,000 MG IV ONE ×2 (13:03)
[2020-02-05] MEDS ORDERED: HYDROcodone/APAP 10-325MG 1 EACH TAB PO PRN (14:17)
[2020-02-05] MEDS ORDERED: MAGNESIUM HYDROXIDE 2,400 MG/10 ML CUP PO PRN (14:17)
[2020-02-05] MEDS ORDERED: HYDROmorphone 0.2 MG/1 ML SYRINGE IVP PRN (14:17)
[2020-02-05] MEDS ORDERED: diazePAM 5 MG TAB PO PRN (14:17)
[2020-02-05] MEDS ORDERED: HYDROcodone/APAP 5-325MG 1 EACH TAB PO PRN (14:17)
[2020-02-05] MEDS ORDERED: HYDROmorphone 0.5 MG/0.5 ML SYRINGE IVP PRN ×2 (14:17)
[2020-02-05] MEDS ORDERED: TEMAZEPAM 15 MG CAP PO PRN (14:17)
--- NOTE | 2020-02-05 14:43 | XR ---
Limited right hip HISTORY: Status post right hip surgery Correlation to prior exam 02/03/2020 Single frontal view of the right hip Patient is interval placement of intramedullary florentino in the proximal right femur, side screw along the femoral head, there is anatomic alignment. Shows lesser trochanter remains displaced. This is presen t in the soft tissues. There are vascular calcifications. Probable fibroid calcification within the p gildardo. There are overlying jody. Bone mineralization is reduced. IMPRESSION: Orthopedic follow-up.
--- NOTE | 2020-02-05 14:50 | FL ---
Fluoroscopy HISTORY: Open reduction internal fixation 41 seconds fluoroscopy time supplied to the referring clinician. 2 intraoperative C-arm images docum ent the procedure. See dictated report from orthopedic surgery.
--- NOTE | 2020-02-05 14:51 | XR ---
Limited right hip HISTORY: Fracture 2 intraoperative C-arm images document the procedure.
[2020-02-05] MEDS ORDERED: LACTATED RINGERS 250 ML IV PRN (15:55)
[2020-02-05] MEDS: LACTATED RINGERS 1,000 ML IV SCH ×2 (16:01→21:02)
[2020-02-05] MEDS: ONDANSETRON 4 MG/2 ML VIAL IVP SCH (16:02)
[2020-02-05] MEDS: SENNOSIDES-DOCUSATE SODIUM 1 EACH TAB PO SCH (21:01)
[2020-02-05] MEDS: ATORVASTATIN 40 MG TAB PO SCH (21:01)
[2020-02-06] MEDS: ONDANSETRON 4 MG/2 ML VIAL IVP SCH ×4 (01:26→23:32)
--- NOTE | 2020-02-06 03:58 | OP ---
OPERATIVE REPORT DATE OF PROCEDURE: 02/05/2020. SURGEON: Al Angeles MD. FELLER MACHINE OPERATOR: Matheus ANAND. PREOPERATIVE DIAGNOSIS: Right hip 4-part intertrochanteric hip fracture. POSTOPERATIVE DIAGNOSIS: Right hip 4-part intertrochanteric hip fracture. PROCEDURE PERFORMED: Right hip intramedullary hip screw fixation for right intertrochanteric fracture. ANESTHESIA: General endotracheal. ESTIMATED BLOOD LOSS: 100 mL. TOURNIQUET: None. DRAINS: None. COMPLICATIONS: None apparent. DISPOSITION: Postanesthesia care unit. INDICATIONS: Amara is a very pleasant 79-year-old female who fell in her home on the evening of 02/02 directly on to her right hip. She was unable to ambulate. She was brought to [facility] via ambulance. Workup including x-rays revealed a comminuted 4-part intertrochanteric hip fracture. She was admitted to our service. Preoperative assessments were done by the Pulmonology Service as well as Internal Medicine. She does have many multiple comorbidities. She is a high risk for surgery. I had a long discussion with Amara's daughter with regard to treatment options. She is currently an independent ambulator and they wish to proceed with operative intervention. The risks of procedure were discussed with Amara and her daughter in detail. These risks include, but are not limited to risk of infection, nerve damage, bleeding, pain, and a small risk of deep vein thrombosis which could lead to fatal pulmonary embolism. Further risks include lack of healing of the fracture and failure of the hardware, both of which could necessitate further operative procedures in the future. All of their questions with regards to the procedure were answered to their satisfaction. Appropriate informed consent was obtained. DESCRIPTION OF PROCEDURE: Patient identified in preop holding area. Surgical site was marked by both the patient and myself. She was given 2 grams of Ancef IV for prophylactic purposes. She was then transported to the operative suite where she was placed supine on the operating room table. A general anesthetic was then administered and dosed per the anesthesia department without apparent complication. She was then placed onto a fracture table well-padded in preparation for surgery. The fluoroscopy was brought in and the fracture was reduced with traction and rotation. The patient's right lower extremity was then prepped and draped in usual sterile fashion. Standard surgical pause was undertaken to ensure that we were operating on the correct site and that appropriate preoperative antibiotics were given. All staff in the room were in agreement and we proceeded. The tip of the greater trochanter was identified. A 3 cm incision starting at the tip of the greater trochanter and extending proximally in line with the femoral shaft was then made with a 10 blade scalpel. Dissection carried down sharply to the tensor fascia. The tensor fascia was then incised in line with the incision. The curved awl was then placed on the medial aspect of the greater trochanter. The threaded guide pin was then advanced from the medial aspect of the greater trochanter down the femoral shaft. Again this was done with confirmation with fluoroscopic imaging. I then utilized a starting drill. This was used to open the proximal femur to the level of the lesser trochanter. The threaded guide pin was then removed and a ball-tipped guidewire was then placed down the femoral shaft. Again, placement was confirmed with fluoroscopic imaging. The femoral canal was then reamed starting with a 9 mm reamer incrementally increasing up to a 13 mm reamer as to accept the intramedullary hip screw. I had the insurance verification representative open a [place] 11 mm x 125 degree by 180 mm gamma nail. This was assembled on the back table. It was then inserted over the ball-tipped guidewire and the ball-tipped guidewire was removed. I then made a second incision on the lateral thigh. This was done for placement of the hip screw. The threaded guide pin was then placed through the nail and into the center of the femoral head on both AP and lateral views. This placement was also confirmed with fluoroscopic imaging. The tip-apex distance was appropriate. I then measured for over reaming. It measured 100 mm. The reamer was set to 100 mm. The threaded guide pin was then over reamed to 100 mm under fluoroscopic imaging. I then had the insurance verification representative open a 10 mm x 100 mm partially-threaded cannulated hip screw. This was then placed over the threaded guide pin deep into the center of femoral head. The bite of the screw was decent. Her bone quality was okay. The placement of the screw was again confirmed with AP and lateral images. The tip-apex distance was appropriate. I then placed the set screw. It was tightened down fully and then backed off 1/4 turn as to allow for compression at the fracture site. I then proceeded with placement of the distal interlocking screw. A 5 mm x 37.5 mm distal interlocking screw was made. Again fluoroscopic imaging was checked to ensure that the screw was of appropriate length and it was placed through the static slot in the distal nail. At this point in time no further work seemed necessary. Final fluoroscopic images were taken. The hip screw was placed within the femoral canal. The hip screw was placed deep in the center of the femoral head on both AP and lateral views. The tip-apex distance was appropriate. The distal locking screw was through the nail and was of appropriate length. At this point time, no further work seemed necessary. The jig was removed. The wounds were thoroughly irrigated with sterile saline solution with antibiotic added. The tensor fascia was closed with 0 Vicryl interrupted suture. The subcutaneous tissue closed with 2-0 Vicryl interrupted suture. The skin was closed with stainless steel jody. Sterile compressive dressing was then applied. All sponge and needle counts were deemed correct prior to closure. The patient tolerated the procedure without apparent complication. She was transferred recovery room in stable condition. MMODL / IJN: [id number] /
[2020-02-06] MEDS: LEVOTHYROXINE 100 MCG TAB PO SCH (06:07)
[2020-02-06] MEDS: BUDESONIDE 0.5 MG/2 ML NEBU INHALATION SCH ×2 (07:29→21:44)
[2020-02-06] MEDS: FORMOTEROL FUMARATE 20 MCG/2 ML NEBU INHALATION SCH ×2 (07:29→21:44)
[2020-02-06] MEDS: ALBUTEROL HFA INHALER INHALATION PRN ×3 (07:29→15:58)
[2020-02-06 08:57] LABS: HCT 22.3 % (34.0-46.0); HGB 7.2 gm/dL (11.4-16.0); Hypochromasia Slight; MCH 33.6 pg (25.0-35.0); MCHC 32.1 g/dL (31.0-37.0); MCV 104.8 fL (80.0-100.0); Macrocytosis Moderate; Mean Platelet Volume 8.3; Platelet Count 126 k/uL (150-450); RBC 2.13 m/uL (3.80-5.40); RDW 14.4 % (11.5-15.5); WBC 13.3 k/uL (3.8-10.6)
[2020-02-06] MEDS: METOPROLOL TARTRATE 25 MG TAB PO SCH ×2 (10:00→20:06)
[2020-02-06] MEDS: traMADol 50 MG TAB PO PRN (10:00)
[2020-02-06] MEDS: ISOSORBIDE MONONITRATE ER 60 MG TAB.ER.24H PO SCH (10:00)
[2020-02-06] MEDS: ASPIRIN 81 MG PO SCH (10:00)
[2020-02-06] MEDS: PANTOPRAZOLE 40 MG TABLET PO SCH (10:01)
[2020-02-06] MEDS: EZETIMIBE 10 MG TAB PO SCH (10:01)
[2020-02-06] MEDS: ESCITALOPRAM 10 MG TAB PO SCH (10:01)
[2020-02-06] MEDS: MULTIVITAMINS, THERA 1 EACH TAB PO SCH ×2 (10:01)
--- NOTE | 2020-02-06 10:19 | P.PN ---
Subjective Progress Note Date: 02/06/20 HISTORY OF PRESENT ILLNESS: She is status post right hip intramedullary screw fixation with Dr. Angeles. Postop day #1. Patient examined this morning at the bedside. Patient continues to be confused and a little agitated this morning upon evaluation. She denies chest pain or pressure. She denies shortness of breath. She is currently on 2 liters nasal cannula with oxygen saturations greater than 92%. Blood pressure 117/51. Heart rate in the 90s. PHYSICAL EXAM: VITAL SIGNS: Reviewed. GENERAL: Well-developed in no acute distress. NECK: Supple. No JVD or thyromegaly LUNGS: Respirations even and unlabored. Lungs essentially clear to auscultation bilaterally. HEART: Regular rate and rhythm. S1 and S2 heard. Systolic murmur noted EXTREMITIES: Dressing noted to right hip. No clubbing or cyanosis. Peripheral pulses intact. No lower extremity edema ASSESSMENT: Right hip fracture, status post fall History of coronary artery disease with previous PCI in 2004 and 2007 Advanced COPD with pulmonary hypertension Hypertension History of CLL Hyperlipidemia End-stage renal disease on hemodialysis PLAN: Continue current cardiac medications Patient is currently stable from a cardiac perspective We will sign off. Please re-consult if needed. Nurse practitioner note has been reviewed by physician. Signing provider agrees with the documented findings, assessment, and plan of care. Objective - Vital Signs Vital signs: Vital Signs Temp 98 F 02/06/20 07:15 Pulse 92 02/06/20 07:50 Resp 18 02/06/20 07:15 BP 117/51 02/06/20 07:15 Pulse Ox 91 L 02/06/20 07:30 Intake & Output 02/05/20 02/06/20 02/06/20 18:59 06:59 18:59 Intake Total 550 Output Total 125 100 Balance 425 -100 Intake: IV 550 Output: Urine 25 100 Estimated Blood Loss 100 Other: Voiding Method Indwelling Catheter Indwelling Catheter Indwelling Catheter - Labs CBC & Chem 7: 02/06/20 07:15 02/03/20 17:40 Labs: Abnormal Lab Results - Last 24 Hours (Table) 02/03/20 02/06/20 Range/Units 17:40 07:15 WBC 13.3 H (3.8-10.6) k/uL RBC 2.13 L (3.80-5.40) m/uL Hgb 7.2 L (11.4-16.0) gm/dL Hct 22.3 L (34.0-46.0) % MCV 104.8 H (80.0-100.0) fL Plt Count 126 L (150-450) k/uL Iron 35 L (50-170) ug/dL Ferritin 378.0 H (10.0-291.0) ng/mL
[2020-02-06] MEDS: HYDROcodone/APAP 7.5-325MG 1 EACH TAB PO PRN (10:49)
[2020-02-06 12:16] LABS: Band Neutrophils % 2 %; Lymphocytes # (M) 5.72 k/uL (1.0-4.8); Metamyelocytes # (M) 0.13 k/uL (0); Metamyelocytes % 1 %; Neutrophils % (M) 53 %; Nucleated Red Blood Cells 0 /100 WBC (0-0); Total Cells Counted 200
--- NOTE | 2020-02-06 12:29 | P.PN ---
Subjective Patient is seen in follow-up for acute kidney injury on chronic kidney disease. Creatinine 2.4 on admission. Status post hip surgery February 04. Denies chest pain or shortness of breath. Oral intake poor. She is maintained on lactated Ringer's. Vital signs are stable. General: The patient appeared well nourished and normally developed. HEENT: Head exam is unremarkable. Neck is without jugular venous distension. LUNGS: Breath sounds decreased. HEART: Rate and Rhythm are regular. ABDOMEN: Soft, nontender. EXTREMITITES: No edema. Objective - Vital Signs Vital signs: Vital Signs Temp 98 F 02/06/20 07:15 Pulse 92 02/06/20 07:50 Resp 18 02/06/20 07:15 BP 117/51 02/06/20 07:15 Pulse Ox 91 L 02/06/20 07:30 Intake & Output 02/05/20 02/06/20 02/06/20 18:59 06:59 18:59 Intake Total 550 Output Total 125 100 50 Balance 425 -100 -50 Intake: IV 550 Output: Urine 25 100 50 Estimated Blood Loss 100 Other: Voiding Method Indwelling Catheter Indwelling Catheter Indwelling Catheter - Labs CBC & Chem 7: 02/06/20 07:15 02/03/20 17:40 Labs: Abnormal Lab Results - Last 24 Hours (Table) 02/06/20 Range/Units 07:15 WBC 13.3 H (3.8-10.6) k/uL RBC 2.13 L (3.80-5.40) m/uL Hgb 7.2 L (11.4-16.0) gm/dL Hct 22.3 L (34.0-46.0) % MCV 104.8 H (80.0-100.0) fL Plt Count 126 L (150-450) k/uL Lymphocytes # (Manual) 5.72 H (1.0-4.8) k/uL Metamyelocytes # (Man) 0.13 H (0) k/uL Assessment and Plan Plan: Assessment: 1. Acute kidney injury secondary to ATN secondary to cardiorenal syndrome and hypotension. Recently taken off hemodialysis due to recovery of renal function. Creatinine 2.4 on admission. UA benign. 2. Chronic diastolic CHF with tricuspid regurgitation and severe pulmonary hypertension. 3. Status post fall with right hip fracture. Status post right hip screw fixation on February 04. 4. Chronic kidney disease stage III with baseline creatinine 1-1.5 prior to initiating hemodialysis. Etiology is nephrosclerosis. UA is benign. 5. Anemia of chronic kidney disease. Iron deficiency noted. Maintained on Aranesp. Plan: Decrease rate of LR to 50 mL an hour. Hold Demadex. Continue to hold hemodialysis. Continue to monitor renal function and urine output. IV iron 3 doses. First dose today.
[2020-02-06] MEDS: SODIUM FERRIC GLUCONAT-SUCROSE 125 MG in SODIUM CHLORIDE 0.9% 100 ML IVPB SCH (13:38)
--- NOTE | 2020-02-06 14:43 | P.PN ---
Subjective Progress Note Date: 02/06/20 Principal diagnosis: Right hip fracture Patient is seen at bedside this morning. She is postop day #1 from Gamma nail for right IT fracture. She has pain at the surgical site as expected but denies any new complaints. She denies numbness, tingling or calf pain. Review of syst ems is negative for fever, chills, chest pain, shortness of breath or other Objective - Vital Signs Vital signs: Vital Signs Temp 98 F 02/06/20 07:15 Pulse 92 02/06/20 07:50 Resp 18 02/06/20 07:15 BP 117/51 02/06/20 07:15 Pulse Ox 91 L 02/06/20 07:30 Intake & Output 02/05/20 02/06/20 02/06/20 18:59 06:59 18:59 Intake Total 550 Output Total 125 100 50 Balance 425 -100 -50 Intake: IV 550 Output: Urine 25 100 50 Estimated Blood Loss 100 Other: Voiding Method Indwelling Catheter Indwelling Catheter Indwelling Catheter - Exam Inspection reveals a benign surgical wound. There is no active bleeding or drainage. Neurovascular status is intact throughout the lower extremity with motor and sensation fully intact. Calf is soft and nontender. 2+ dorsalis pedis pulse and less than 2 second cap refill is present. - Constitutional General appearance: Present: no acute distress - Labs CBC & Chem 7: 02/06/20 07:15 02/03/20 17:40 Labs: Abnormal Lab Results - Last 24 Hours (Table) 02/06/20 Range/Units 07:15 WBC 13.3 H (3.8-10.6) k/uL RBC 2.13 L (3.80-5.40) m/uL Hgb 7.2 L (11.4-16.0) gm/dL Hct 22.3 L (34.0-46.0) % MCV 104.8 H (80.0-100.0) fL Plt Count 126 L (150-450) k/uL Lymphocytes # (Manual) 5.72 H (1.0-4.8) k/uL Metamyelocytes # (Man) 0.13 H (0) k/uL Assessment and Plan (1) Fracture, intertrochanteric, right femur Narrative/Plan: She will continue with routine postop orthopedic protocol including pain management, wound care, PT, DVT prophylaxis and medical management. She does not want to go to an ECF aand states that she has family that will be taking her in. We will make further recommendations pending her clinical course. Expect discharge in next 1-2 days Current Visit: Yes Status: Acute Priority: Medium Code(s): S72.141A - DISPLACED INTERTROCHANTERIC FRACTURE OF RIGHT FEMUR, INIT SNOMED Code(s): 512917328 Time with Patient: Less than 30
[2020-02-06 15:20] LABS: African American GFR (CKD) 10.3 (60.0-200.0); Anion Gap 11.5 mmol/L (4.00-12.00); BUN/Creat Ratio 16.59 Ratio (12.00-20.00); Calcium 8.2 mg/dL (8.7-10.3); Carbon Dioxide 31.5 mmol/L (21.6-31.8); Magnesium 1.6 mg/dL (1.5-2.4); Non-African American GFR(CKD) 8.9 (60.0-200.0); Potassium 5.4 mmol/L (3.5-5.5)
--- NOTE | 2020-02-06 15:44 | PN ---
PROGRESS NOTE This is a 79-year-old female who was admitted to the hospital on February 02. The patient fell and fractured her right hip. She had a fall at home. The patient underwent a right hip intramedullary hip screw fixation for right intertrochanteric fracture. The surgery was done by Dr. Al Angeles. Today is postop day #1. The patient also has a history of advanced COPD, with chronic hypoxemic respiratory failure, sleep apnea syndrome, CAD, CLL, pulmonary hypertension, chronic kidney disease, previous tobacco use, hypothyroidism, hypogammaglobulinemia, essential hypertension, and macular degeneration. Currently, the patient is doing reasonably well. The patient is on oxygen. The patient is receiving pain medication in the form of narcotic. She is on a couple liters of O2, I believe 4 or so. No distress. Current vital signs, temperature 97.4, heart rate 83, respiratory rate 17, blood pressure 89/52 mean 64, saturations are in the mid 90s on 8 L oxygen. Appears in no acute distress. Somewhat sleepy. HEENT: Examination is grossly unremarkable. NECK: Supple, full range of motion. No adenopathy. Neck veins are flat. CARDIOVASCULAR: Examination reveals regular rhythm and rate. LUNGS: A few scattered rhonchi. No wheezes or crackles. She is not taking deep breaths. ABDOMEN: Soft, bowel sounds are heard. EXTREMITIES: Intact. No cyanosis, clubbing, or edema. LABS: Reviewed. White count 13.3, hemoglobin 7.2, hematocrit 22.3, platelet count 126,000. No additional labs from today. Microbiology is negative. No recent x-rays to report. MEDICATIONS: Reviewed. Currently, the patient is on Tylenol, albuterol inhaler, aspirin, Lipitor, Pulmicort, Aranesp, Lexapro, Zetia, formoterol, [place], Dilaudid p.r.n., Imdur, LR, levothyroxine, loratadine, Ativan, milk of magnesia, metoprolol,. multivitamins, Narcan, nitroglycerin tablets, Zofran Protonix, MiraLAX, promethazine with codeine cough syrup, senna, Restoril, tramadol, and Yupelri inhalation. ASSESSMENT: 1. Postoperative day #1 status post right hip intramedullary hip screw fixation for right intertrochanteric fracture. 2. History of acute right hip fracture, secondary to a fall at home. 3. Advanced COPD, on home O2 therapy, at 4 L. 4. History of severe obstructive sleep apnea syndrome, patient declined CPAP therapy. 5. History of coronary artery disease with previous stenting. 6. History of CLL. 7. Severe pulmonary hypertension. 8. History of chronic kidney disease. 9. Former tobacco use. 10.Hypothyroidism. 11.History of hypogammaglobulinemia. 12.Essential hypertension. 13.Macular degeneration. PLAN: The patient is doing reasonably well. I did cut back on some of her narcotics. She is a bit sleepy. Continue to follow. Prognosis is guarded. No additional recommendations are made. Will recommend deep breathing,. coughing, clearing of secretions, and hourly use of the incentive spirometer. Please be careful with her pain medications. MMODL / IJN: [id number] /
[2020-02-06] MEDS: LACTATED RINGERS 1,000 ML IV SCH (16:28)
[2020-02-06] MEDS: MIDODRINE 5 MG TAB PO SCH (17:29)
--- NOTE | 2020-02-06 17:30 | CDI ---
Documentation Clarification Form Date: 02/06/2020 04:57:06 PM From: Raquel Resendez RN CCDS Admit Date: 02/03/2020 05:10:00 PM Patient Name: Amara Martinez Visit Number: [id number] Discharge Date: ATTENTION: The Clinical Documentation Specialists (CDI) and [facility] Coding Staff appreciate your assistance in clarifying documentation. Please respond to the clarification below the line at the bottom and electronically sign. The CDI & [facility] Coding staff will review the response and follow-up if needed. Please note: Queries are made part of the Legal Health Record. If you have any questions, please contact the author of this message via ITS. Dr. Elmer Gutierrez Conflicting documentation has been found in the medical record: Chronic Kidney disease stage III is documented in the Nephrology Consult 02/03 and through Progress notes 02/05 End-stage renal disease on hemodialysis is documented in Cardiology Consult 02/03 and through Progress notes 02/05 History/Risk Factors: 79-Year-old presents to the ED after a trip and fall on her left hip. Medical History: HLD; HTN; MADAY; CLL; CAD, Chronic Respiratory Failure and Kidney Disease. Admitted with Right Intertrochanteric Fracture. Clinical Indicators: BUN: 02/05 73.00; 12/08 150; 11/05 49; 10/01 64 CR: 02/05 4.4; 12/08 5.72; 11/05 3.83; 10/01 1.60 GFR: 02/05 8.9; 12/08 7; 11/05 11; 10/01 31 02/03 your consult: hold off on hemodialysis; anemia of chronic kidney disease. Rule out iron deficiency. Treatment: Maintain Demadex; monitor renal function and urine output; Check Iron studies: 02/05 Ferric Sodium Gluconate Ivpb; 02/03 Daily Aranesp 40mcg SQ Q 7D; In your opinion, what is the most clinically appropriate diagnosis for this patient? CKD III End Stage Renal Disease Other explanation of clinical findings Unable to determine (no explanation for clinical findings) (Last Revision: June 2017) ckd 4 MTDD
[2020-02-06] MEDS: Yupelri 175mcg/3ml 175 MCG INHALATION SCH (20:07)
[2020-02-06] MEDS: ATORVASTATIN 40 MG TAB PO SCH (20:09)
[2020-02-06] MEDS: SENNOSIDES-DOCUSATE SODIUM 1 EACH TAB PO SCH (20:09)
--- NOTE | 2020-02-06 21:01 | P.PN ---
Progress Note - Text Progress Note Date: 02/06/20 - Chief Complaint Left hip pain History of presenting complaint: This is a very pleasant 79-year-old patient of Dr. Steph Dooley. Chronic stable medical conditions include hyperlipidemia, hypertension, obstructive sleep apnea does not use a CPAP machine, hypothyroid, CLL, macular degeneration, coronary artery disease with stent/2007. Home oxygen 4-5 L. . Admitted on January 06 with unstable angina. Nitrates was added. PE was ruled out. Patient now tripped and fell falling on her left hip. Has a fracture. Is on home oxygen on 4 L. Patient's hemodialysis of been on hold for a few days. No chest pain or palpitation. Breathing is stable. No fever no chills. Otherwise at her baseline. No chest pain. February 04-underwent right hip IM hip screw fixation for the It fracture Today-sitting up in a chair. Some pain. Some shortness breath. On 8 L oxygen . 8 some food. Review of systems: Was done for constitutional, cardiovascular, GI, pulmonary. relevant finding as above Active Medications Acetaminophen (Acetaminophen Tab 325 Mg Tab) 650 mg PO Q4HR PRN PRN Reason: Pain Scale 1 to 5 Hydrocodone Bitart/Acetaminophen (Hydrocodone/Apap 5-325mg 1 Each Tab) 1 each PO Q6HR PRN PRN Reason: Pain Scale 1 to 5 Albuterol Sulfate (Albuterol Hfa Inhaler) 2 puff INHALATION RT-QID PRN PRN Reason: Shortness Of Breath Last Admin: 02/06/20 15:58 Dose: 2 puff Documented by: Aspirin (Aspirin 81 Mg) 81 mg PO DAILY [facility] Last Admin: 02/06/20 10:00 Dose: 81 mg Documented by: Atorvastatin Calcium (Atorvastatin 40 Mg Tab) 40 mg PO HS [facility] Last Admin: 02/06/20 20:09 Dose: 40 mg Documented by: Budesonide (Budesonide 0.5 Mg/2 Ml Nebu) 0.5 mg INHALATION RT-BID [facility] Last Admin: 02/06/20 07:29 Dose: 0.5 mg Documented by: Darbepoetin Zeferino (Darbepoetin Zeferino 40 Mcg/0.4 Ml Syringe) 40 mcg SQ Q7D [facility] Last Admin: 02/04/20 16:38 Dose: 40 mcg Documented by: Ezetimibe (Ezetimibe 10 Mg Tab) 10 mg PO DAILY [facility] Last Admin: 02/06/20 10:01 Dose: 10 mg Documented by: Escitalopram Oxalate (Escitalopram 10 Mg Tab) 10 mg PO DAILY [facility] Last Admin: 02/06/20 10:01 Dose: 10 mg Documented by: Formoterol Fumarate (Formoterol Fumarate 20 Mcg/2 Ml Nebu) 20 mcg INHALATION RT-BID [facility] Last Admin: 02/06/20 07:29 Dose: 20 mcg Documented by: Hydromorphone HCl (Hydromorphone 0.5 Mg/0.5 Ml Syringe) 0.5 mg IVP Q3HR PRN PRN Reason: Moderate Pain Last Admin: 02/04/20 21:19 Dose: 0.5 mg Documented by: Hydromorphone HCl (Hydromorphone 1 Mg/Ml 1 Ml Syringe) 1 mg IVP Q3HR PRN PRN Reason: Severe Pain Hydromorphone HCl (Hydromorphone 0.2 Mg/1 Ml Syringe) 0.2 mg IVP Q3HR PRN PRN Reason: Pain Scale 4 to 6 Hydromorphone HCl (Hydromorphone 0.5 Mg/0.5 Ml Syringe) 0.125 mg IVP Q3HR PRN PRN Reason: Pain Scale 1 to 3 Hydromorphone HCl (Hydromorphone 0.5 Mg/0.5 Ml Syringe) 0.5 mg IVP Q3HR PRN PRN Reason: Pain Scale 7 to 10 Last Admin: 02/06/20 01:27 Dose: 0.5 mg Documented by: Lactated Ringer's (Lactated Ringers) 1,000 mls @ 50 mls/hr IV .Q20H [facility] Last Admin: 02/06/20 16:28 Dose: Not Given Documented by: Lactated Ringer's (Lactated Ringers) 250 mls @ 999 mls/hr IV .Q16M PRN PRN Reason: low BP Ferric Sodium Gluconate 125 mg (/ Sodium Chloride) 110 mls @ 100 mls/hr IVPB DAILY [facility] Stop: 02/09/20 12:46 Last Admin: 02/06/20 13:38 Dose: 100 mls/hr Documented by: Isosorbide Mononitrate (Isosorbide Mononitrate Er 60 Mg Tab.Er.24h) 60 mg PO DAILY [facility] Last Admin: 02/06/20 10:00 Dose: 60 mg Documented by: Levothyroxine Sodium (Levothyroxine 100 Mcg Tab) 100 mcg PO DAILY@0630 [facility] Last Admin: 02/06/20 06:07 Dose: 100 mcg Documented by: Levothyroxine Sodium (Levothyroxine 50 Mcg Tab) 50 mcg PO [facility] Loratadine (Loratadine 10 Mg Tab) 10 mg PO DAILY PRN PRN Reason: Allergy Symptoms Magnesium Hydroxide (Magnesium Hydroxide 2,400 Mg/10 Ml Cup) 2,400 mg PO DAILY PRN PRN Reason: Constipation Metoprolol Tartrate (Metoprolol Tartrate 25 Mg Tab) 25 mg PO BID [facility] Last Admin: 02/06/20 20:06 Dose: Not Given Documented by: Midodrine (Midodrine 5 Mg Tab) 10 mg PO AC-TID [facility] Last Admin: 02/06/20 17:29 Dose: 10 mg Documented by: Multivitamins (Multivitamins, Thera 1 Each Tab) 1 each PO DAILY [facility] Last Admin: 02/06/20 10:01 Dose: 1 each Documented by: Multivitamins (Multivitamins, Thera 1 Each Tab) 1 each PO DAILY@1200 [facility] Last Admin: 02/06/20 10:01 Dose: Not Given Documented by: Naloxone HCl (Naloxone 0.4 Mg/Ml 1 Ml Vial) 0.2 mg IV Q2M PRN PRN Reason: Opioid Reversal Nitroglycerin (Nitroglycerin Sl Tabs 0.4 Mg Tab) 0.4 mg SUBLINGUAL Q5M PRN PRN Reason: Chest Pain Yupelri 175mcg/3ml (175 Mcg) 175 mcg INHALATION RT-DAILY [facility] Last Admin: 02/06/20 20:07 Dose: Not Given Documented by: Ondansetron HCl (Ondansetron 4 Mg/2 Ml Vial) 4 mg IVP Q8HR PRN PRN Reason: Nausea And Vomiting Last Admin: 02/05/20 11:48 Dose: 4 mg Documented by: Ondansetron HCl (Ondansetron 4 Mg/2 Ml Vial) 4 mg IVP Q8HR [facility] Last Admin: 02/06/20 10:02 Dose: Not Given Documented by: Pantoprazole Sodium (Pantoprazole 40 Mg Tablet) 40 mg PO DAILY@0730 [facility] Last Admin: 02/06/20 10:01 Dose: 40 mg Documented by: Polyethylene Glycol (Polyethylene Glycol 3350 17 Gm Powd.Pack) 17 gm PO HS PRN PRN Reason: Constipation Senna/Docusate Sodium (Sennosides-Docusate Sodium 1 Each Tab) 2 each PO HS JACK Last Admin: 02/06/20 20:09 Dose: 2 each Documented by: Temazepam (Temazepam 15 Mg Cap) 15 mg PO HS PRN PRN Reason: Insomnia Tramadol HCl (Tramadol 50 Mg Tab) 50 mg PO Q6HR PRN PRN Reason: Pain Scale 1 to 5 Last Admin: 02/06/20 10:00 Dose: 50 mg Documented by: Physical examination: VITAL SIGNS: 97.4, 83, 17, 89/52, 96% on 8 L GENERAL: Up in chair, slightly short of breath EYES: Pupils equal. Conjunctiva normal. NECK: JVD unable to assess masses not palpable. HEART: First and second heart sounds are normal; mild edema present LUNGS: Respiratory rate increased, decreased breath sounds ABDOMEN: Soft, nontender, liver spleen not palpable, no masses palpable. PSYCH: Alert and oriented x3; mood and affect normal. NEUROLOGICAL: Cranial nerves grossly intact; no facial asymmetry, power and sensation grossly intact. MUSCULAR skeletal: Evidence of OA. Limited range of motion on left hip. Investigations: February 05: White count 13.3 hemoglobin 7.2 potassium 5.4 bun 73 creatinine 4.4 White count 11.9 hemoglobin 8.2 platelets 139 potassium 4.0 bun 46 creatinine 2.40 EKG tracing personally reviewed by me-normal sinus rhythm, some flipped T waves in anterior leads Hip x-ray-ID fractured the right femur Chest x-ray film personally reviewed by me-, rotated some chronic changes 2-D echocardiogram [December 2019]-shows moderate concentric LVH and EF of 50-55% %, moderate to severe tricuspid regurgitation, severe pulmonary hypertension Assessment: -Mechanical fall leading to a right femur intertrochanteric fracture-IM hip screw fixation - COPD in an ex-smoker -Chronic congestive heart failure exacerbation from diastolic dysfunction EF 50- 55% % from underlying coronary artery disease -chronic hypoxic respiratory failure, on baseline 4 L oxygen at home -Moderate to severe tricuspid regurgitation, non-rheumatic -Secondary severe pulmonary hypertension -Essential hypertension -Diabetes mellitus II, -Hyperlipidemia -Hypothyroid -CLL -Chronic macular degeneration -Coronary artery disease with prior history of stent -Obesity BMI 32.6 -Chronic gait dysfunction uses a cane -Chronic kidney stage III -Acute kidney injury secondary to ATN secondary to cardiorenal syndrome. Recently taken off hemodialysis about 10 days ago due to recovery renal function.. -Depression not otherwise specified Plan: IV fluids decreased. Keep a close eye and renal function. Keep the patient on oxygen. Discussed with patient. Follow closely. Repeat labs. Thank you Dr. Angeles
[2020-02-07] MEDS: LEVOTHYROXINE 100 MCG TAB PO SCH (05:21)
[2020-02-07] MEDS: ALBUTEROL HFA INHALER INHALATION PRN ×4 (08:32→20:36)
[2020-02-07] MEDS: BUDESONIDE 0.5 MG/2 ML NEBU INHALATION SCH ×2 (08:32→20:33)
[2020-02-07] MEDS: FORMOTEROL FUMARATE 20 MCG/2 ML NEBU INHALATION SCH ×2 (08:32→20:33)
[2020-02-07] MEDS: ASPIRIN 81 MG PO SCH (09:10)
[2020-02-07] MEDS: MIDODRINE 5 MG TAB PO SCH ×3 (09:10→16:46)
[2020-02-07] MEDS: METOPROLOL TARTRATE 25 MG TAB PO SCH (09:10)
[2020-02-07] MEDS: PANTOPRAZOLE 40 MG TABLET PO SCH (09:10)
[2020-02-07] MEDS: MULTIVITAMINS, THERA 1 EACH TAB PO SCH ×2 (09:10→13:09)
[2020-02-07] MEDS: ISOSORBIDE MONONITRATE ER 60 MG TAB.ER.24H PO SCH (09:10)
[2020-02-07] MEDS: Yupelri 175mcg/3ml 175 MCG INHALATION SCH (09:11)
[2020-02-07] MEDS: ONDANSETRON 4 MG/2 ML VIAL IVP SCH ×2 (09:11→16:44)
[2020-02-07] MEDS: ESCITALOPRAM 10 MG TAB PO SCH (09:12)
[2020-02-07] MEDS: EZETIMIBE 10 MG TAB PO SCH (09:12)
[2020-02-07] MEDS: traMADol 50 MG TAB PO PRN (09:15)
[2020-02-07] MEDS: SODIUM FERRIC GLUCONAT-SUCROSE 125 MG in SODIUM CHLORIDE 0.9% 100 ML IVPB SCH (10:17)
[2020-02-07 11:22] LABS: African American GFR (CKD) 10.3 (60.0-200.0); BUN/Creat Ratio 17.95 Ratio (12.00-20.00); Calcium 8.4 mg/dL (8.7-10.3); Magnesium 1.5 mg/dL (1.5-2.4); Non-African American GFR(CKD) 8.9 (60.0-200.0); Potassium 5.1 mmol/L (3.5-5.5)
--- NOTE | 2020-02-07 12:00 | P.PN ---
Subjective Patient is seen in follow-up for acute kidney injury on chronic kidney disease. Creatinine 2.4 on admission - up to 4.4 last 2 days. Status post hip surgery February 04. Denies chest pain. Currently on 8 L high flow cannula. Oral intake just fair. She is maintained on lactated Ringer's. Vital signs are stable. General: The patient appeared well nourished and normally developed. HEENT: Head exam is unremarkable. Neck is without jugular venous distension. LUNGS: Breath sounds decreased. HEART: Rate and Rhythm are regular. ABDOMEN: Soft, nontender. EXTREMITITES: No edema. Objective - Vital Signs Vital signs: Vital Signs Temp 98.2 F 02/07/20 07:00 Pulse 98 02/07/20 08:45 Resp 19 02/07/20 07:00 BP 109/51 02/07/20 07:00 Pulse Ox 94 L 02/07/20 07:00 Intake & Output 02/06/20 02/07/20 02/07/20 18:59 06:59 18:59 Intake Total 100 Output Total 70 325 600 Balance -70 -325 -500 Intake: Oral 100 Output: Urine 70 325 600 Other: Voiding Method Indwelling Catheter Indwelling Catheter Indwelling Catheter - Labs CBC & Chem 7: 02/06/20 07:15 02/07/20 07:10 Labs: Abnormal Lab Results - Last 24 Hours (Table) 02/06/20 02/06/20 02/07/20 Range/Units 07:15 07:15 07:10 Lymphocytes # (Manual) 5.72 H (1.0-4.8) k/uL Metamyelocytes # (Man) 0.13 H (0) k/uL Chloride 95 L 92 L (96-109) mmol/L Anion Gap 17.00 H (4.00-12.00) mmol/L BUN 73.0 H 79.0 H (9.0-27.0) mg/dL Creatinine 4.4 H 4.4 H (0.6-1.5) mg/dL Est GFR (CKD-EPI)AfAm 10.3 L 10.3 L (60.0-200.0) Est GFR (CKD-EPI)NonAf 8.9 L 8.9 L (60.0-200.0) Glucose 144 H 217 H (70-110) mg/dL Calcium 8.2 L 8.4 L (8.7-10.3) mg/dL Assessment and Plan Plan: Assessment: 1. Acute kidney injury secondary to ATN secondary to cardiorenal syndrome and hypotension. Recently taken off hemodialysis due to recovery of renal function. Creatinine 2.4 on admission - now 4.4. UA benign. 2. Chronic diastolic CHF with tricuspid regurgitation and severe pulmonary hypertension. 3. Status post fall with right hip fracture. Status post right hip screw fixation on February 04. 4. Chronic kidney disease stage III with baseline creatinine 1-1.5 prior to initiating hemodialysis. Etiology is nephrosclerosis. UA is benign. 5. Anemia of chronic kidney disease. Iron deficiency noted. Maintained on Aranesp. Plan: Change LR to normal saline at 50 mL an hour. Hold Demadex. Continue to hold hemodialysis. Continue to monitor renal function and urine output. IV iron 3 doses. Second dose today. Check chest x-ray. Repeat CBC and BMP in the morning. Encourage oral intake. Add ensure. Strict is and os. Continue to assess daily for need for renal replacement therapy.
--- NOTE | 2020-02-07 12:35 | P.PN ---
Subjective Progress Note Date: 02/07/20 Principal diagnosis: Right hip fracture Patient is seen at bedside this morning. She is postop day #2 from Gamma nail for right IT fracture. She has pain at the surgical site as expected but denies any new complaints. She denies numbness, tingling or calf pain. Review of syst ems is negative for fever, chills, chest pain, shortness of breath or other Objective - Vital Signs Vital signs: Vital Signs Temp 98.2 F 02/07/20 07:00 Pulse 98 02/07/20 08:45 Resp 19 02/07/20 07:00 BP 109/51 02/07/20 07:00 Pulse Ox 94 L 02/07/20 07:00 Intake & Output 02/06/20 02/07/20 02/07/20 18:59 06:59 18:59 Intake Total 100 Output Total 70 325 600 Balance -70 -325 -500 Intake: Oral 100 Output: Urine 70 325 600 Other: Voiding Method Indwelling Catheter Indwelling Catheter Indwelling Catheter - Exam Inspection reveals benign surgical wounds. There is no active bleeding or drainage. Neurovascular status is intact throughout the lower extremity with motor and sensation fully intact. Calf is soft and nontender. 2+ dorsalis pedis pulse and less than 2 second cap refill is present. there is a pressure type injury at the back of the heel that is not open. She is currently in boot for protection - Constitutional General appearance: Present: no acute distress - Labs CBC & Chem 7: 02/06/20 07:15 02/07/20 07:10 Labs: Abnormal Lab Results - Last 24 Hours (Table) 02/05/20 02/06/20 02/07/20 Range/Units 11:02 07:15 07:10 Chloride 95 L 92 L (96-109) mmol/L Anion Gap 17.00 H (4.00-12.00) mmol/L BUN 73.0 H 79.0 H (9.0-27.0) mg/dL Creatinine 4.4 H 4.4 H (0.6-1.5) mg/dL Est GFR (CKD-EPI)AfAm 10.3 L 10.3 L (60.0-200.0) Est GFR (CKD-EPI)NonAf 8.9 L 8.9 L (60.0-200.0) Glucose 144 H 217 H (70-110) mg/dL Calcium 8.2 L 8.4 L (8.7-10.3) mg/dL Crossmatch See Detail Assessment and Plan (1) Fracture, intertrochanteric, right femur Narrative/Plan: She will continue with routine postop orthopedic protocol including pain management, wound care, PT, DVT prophylaxis and medical management. Continue strict nonweightbear right leg. Continue monitor right heel and protect. She does not want to go to an ECF and states that she has family that will be taking her in however, Dr. Angeles has strongly recommended she transfer to ECF due to risk of reinjury. Will request assistance from Social work. Expect discharge in next 1-2 days Current Visit: Yes Status: Acute Priority: Medium Code(s): S72.141A - DISPLACED INTERTROCHANTERIC FRACTURE OF RIGHT FEMUR, INIT SNOMED Code(s): 129658813 Time with Patient: Less than 30
--- NOTE | 2020-02-07 12:50 | US ---
EXAMINATION TYPE: US venous doppler duplex LE DATE OF EXAM: 02/07/2020 12:41 PM COMPARISON: US May 10, 2019 CLINICAL HISTORY: R/O DVT. Right hip fracture SIDE PERFORMED: Bilateral TECHNIQUE: The lower extremity deep venous system is examined utilizing real time linear array sonog [place] with graded compression, doppler sonography and color-flow sonography. VESSELS IMAGED: Common Femoral Vein Deep Femoral Vein Greater Saphenous Vein * Femoral Vein Popliteal Vein Small Saphenous Vein * Proximal Calf Veins (* superficial vessels) Right Leg: Negative for DVT Left Leg: Negative for DVT Grayscale, color doppler, spectral doppler imaging performed of the deep veins of the bilateral lower extremities. There is normal flow, compressibility, vascular waveforms. IMPRESSION: No ultrasound evidence for acute DVT in either lower extremity.
--- NOTE | 2020-02-07 13:13 | XR ---
EXAMINATION TYPE: XR chest 1V portable DATE OF EXAM: 02/07/2020 CLINICAL HISTORY: Difficulty breathing and congestion progress study. TECHNIQUE: Single AP portable frontal view of the chest is obtained. COMPARISON: Chest x-ray from 4 days earlier and older studies. FINDINGS: Stable large bore right internal jugular dual-lumen dialysis catheter. Persisting cardiome louann with atherosclerotic thoracic aorta. Background chronic parenchymal changes bilaterally greatest in the bases with stable small to tiny left greater than right pleural effusions and/or pleural thic kening. Upper lungs remain clear without pneumothorax. Underlying scoliosis redemonstrated. IMPRESSION: Overall stable findings, chronic changes and cardiomegaly with small bilateral pleural effusions and/or pleural thickening and associated bibasilar atelectasis and/or infiltrate are all re demonstrated.
--- NOTE | 2020-02-07 16:20 | PN ---
PROGRESS NOTE DATE OF SERVICE: 02/07/2020 A 79-year-old female admitted to the hospital on February 03, 2020. The patient fell and fractured her right hip. She had a fall at home. She had a right hip intramedullary hip screw fixation for right intertrochanteric fracture. The surgery was done by Dr. Al Angeles. Today is postop day #2. She also suffers from advanced COPD and requires 4 L of nasal O2 at home, chronic hypoxemic respiratory failure, sleep apnea syndrome, CAD, CLL, pulmonary hypertension, chronic kidney disease, previous tobacco use, hypothyroidism, hypogammaglobulinemia, essential hypertension, and macular degeneration. The patient is currently on 8 L nasal cannula. She is feeling improved. Current vital signs include a temperature of 97.8, heart rate 82, respiratory rate 18, 8 L saturation 94%. Most recent blood pressure is 109/51. She appears in no acute distress. No respiratory distress. No audible wheezing or use of accessory muscles. HEENT: Examination is grossly unremarkable. High-flow nasal O2 in place. NECK: Supple, full range of motion. No adenopathy. Neck veins are flat. CARDIOVASCULAR: Examination reveals regular rhythm and rate. Heart rate 82 beats per minute. S1, S2 normal. LUNGS: Mostly clear. A few scattered mild rhonchi. Breath sounds equal. Breath sounds are diminished throughout. No wheezes. ABDOMEN: Soft. EXTREMITIES: Intact. No edema. SKIN: Without rash. NEUROLOGIC: Examination is brief but nonfocal. Sodium 138, potassium 5.1, chloride 92, CO2 is 29, anion gap is 17. BUN and creatinine were 79 and 4.4, glucose 217. The rest of the labs look okay . Microbiology is currently negative. She did have a chest x-ray which showed stable findings with chronic changes and cardiomegaly. Small bilateral pleural effusions are noted. Doppler studies of the lower extremities were negative for DVT. CURRENT MEDICATIONS: Reviewed. The patient is currently on Tylenol, albuterol inhaler, aspirin, Lipitor, Pulmicort, Aranesp, Lexapro, Zetia, formoterol, Kenner, Dilaudid, Imdur, levothyroxine, loratadine, magnesium replacement, metoprolol, midodrine, multivitamins, Narcan, nitroglycerin, Zofran, Protonix, MiraLAX, senna, Restoril, tramadol, and Yupelri inhalation. ASSESSMENT: 1. Postoperative day #2. 2. Status post right hip intramedullary hip screw fixation for right intertrochanteric fracture. 3. History of acute right hip fracture, secondary to fall at home. 4. Advanced COPD, on home O2 of 4 L. 5. History of severe obstructive sleep apnea syndrome, the patient declined CPAP therapy. 6. Chronic hypoxemic respiratory failure. 7. History of coronary artery disease with previous stenting. 8. History of CLL. 9. Severe pulmonary hypertension. 10.History of chronic kidney disease. 11.History of former tobacco use. 12.Hypothyroidism. 13.History of hypogammaglobulinemia. 14.History of essential hypertension. 15.Macular degeneration. PLAN: The patient is doing well. I am concerned a bit about her oxygen requirements. Typically at home she requires 4 L. Currently here, she is at 8 L. Will continue to wean down the FiO2. No additional recommendations are made. The patient has no complaints. Dopplers of the lower extremities were negative for DVT. MMODL / IJN: [id number] /
[2020-02-07] MEDS: ACETAMINOPHEN TAB 325 MG TAB PO PRN (16:46)
[2020-02-07] MEDS: SODIUM CHLORIDE 0.9% 1,000 ML IV SCH (16:46)
[2020-02-07] MEDS ORDERED: FUROSEMIDE 10 MG/ML 2 ML VIAL IV ONE (19:00)
--- NOTE | 2020-02-07 22:25 | P.PN ---
Progress Note - Text Progress Note Date: 02/07/20 - Chief Complaint Left hip pain History of presenting complaint: This is a very pleasant 79-year-old patient of Dr. Steph Dooley. Chronic stable medical conditions include hyperlipidemia, hypertension, obstructive sleep apnea does not use a CPAP machine, hypothyroid, CLL, macular degeneration, coronary artery disease with stent/2007. Home oxygen 4-5 L. . Admitted on January 06 with unstable angina. Nitrates was added. PE was ruled out. Patient now tripped and fell falling on her left hip. Has a fracture. Is on home oxygen on 4 L. Patient's hemodialysis of been on hold for a few days. No chest pain or palpitation. Breathing is stable. No fever no chills. Otherwise at her baseline. No chest pain. February 04-underwent right hip IM hip screw fixation for the It fracture Today-up in a chair. On 8 L of nasal cannula. Oral intake okay. A bit tired Review of systems: Was done for constitutional, cardiovascular, GI, pulmonary. relevant finding as above Active Medications Acetaminophen (Acetaminophen Tab 325 Mg Tab) 650 mg PO Q4HR PRN PRN Reason: Pain Scale 1 to 5 Last Admin: 02/07/20 16:46 Dose: 650 mg Documented by: Hydrocodone Bitart/Acetaminophen (Hydrocodone/Apap 5-325mg 1 Each Tab) 1 each PO Q6HR PRN PRN Reason: Pain Scale 1 to 5 Albuterol Sulfate (Albuterol Hfa Inhaler) 2 puff INHALATION RT-QID PRN PRN Reason: Shortness Of Breath Last Admin: 02/07/20 20:36 Dose: 2 puff Documented by: Aspirin (Aspirin 81 Mg) 81 mg PO DAILY [facility] Last Admin: 02/07/20 09:10 Dose: 81 mg Documented by: Atorvastatin Calcium (Atorvastatin 40 Mg Tab) 40 mg PO HS [facility] Last Admin: 02/06/20 20:09 Dose: 40 mg Documented by: Budesonide (Budesonide 0.5 Mg/2 Ml Nebu) 0.5 mg INHALATION RT-BID [facility] Last Admin: 02/07/20 20:33 Dose: 0.5 mg Documented by: Darbepoetin Zeferino (Darbepoetin Zeferino 40 Mcg/0.4 Ml Syringe) 40 mcg SQ Q7D [facility] Last Admin: 02/04/20 16:38 Dose: 40 mcg Documented by: Ezetimibe (Ezetimibe 10 Mg Tab) 10 mg PO DAILY [facility] Last Admin: 02/07/20 09:12 Dose: 10 mg Documented by: Escitalopram Oxalate (Escitalopram 10 Mg Tab) 10 mg PO DAILY [facility] Last Admin: 02/07/20 09:12 Dose: 10 mg Documented by: Formoterol Fumarate (Formoterol Fumarate 20 Mcg/2 Ml Nebu) 20 mcg INHALATION RT-BID [facility] Last Admin: 02/07/20 20:33 Dose: 20 mcg Documented by: Hydromorphone HCl (Hydromorphone 0.5 Mg/0.5 Ml Syringe) 0.5 mg IVP Q3HR PRN PRN Reason: Moderate Pain Last Admin: 02/04/20 21:19 Dose: 0.5 mg Documented by: Hydromorphone HCl (Hydromorphone 1 Mg/Ml 1 Ml Syringe) 1 mg IVP Q3HR PRN PRN Reason: Severe Pain Hydromorphone HCl (Hydromorphone 0.2 Mg/1 Ml Syringe) 0.2 mg IVP Q3HR PRN PRN Reason: Pain Scale 4 to 6 Hydromorphone HCl (Hydromorphone 0.5 Mg/0.5 Ml Syringe) 0.125 mg IVP Q3HR PRN PRN Reason: Pain Scale 1 to 3 Hydromorphone HCl (Hydromorphone 0.5 Mg/0.5 Ml Syringe) 0.5 mg IVP Q3HR PRN PRN Reason: Pain Scale 7 to 10 Last Admin: 02/06/20 01:27 Dose: 0.5 mg Documented by: Ferric Sodium Gluconate 125 mg (/ Sodium Chloride) 110 mls @ 100 mls/hr IVPB DAILY [facility] Stop: 02/09/20 12:46 Last Admin: 02/07/20 10:17 Dose: 100 mls/hr Documented by: Sodium Chloride (Saline 0.9%) 1,000 mls @ 50 mls/hr IV .Q20H [facility] Last Admin: 02/07/20 16:46 Dose: 50 mls/hr Documented by: Isosorbide Mononitrate (Isosorbide Mononitrate Er 60 Mg Tab.Er.24h) 60 mg PO DAILY [facility] Last Admin: 02/07/20 09:10 Dose: 60 mg Documented by: Levothyroxine Sodium (Levothyroxine 100 Mcg Tab) 100 mcg PO DAILY@0630 [facility] Last Admin: 02/07/20 05:21 Dose: 100 mcg Documented by: Levothyroxine Sodium (Levothyroxine 50 Mcg Tab) 50 mcg PO PADILLA [facility] Loratadine (Loratadine 10 Mg Tab) 10 mg PO DAILY PRN PRN Reason: Allergy Symptoms Magnesium Hydroxide (Magnesium Hydroxide 2,400 Mg/10 Ml Cup) 2,400 mg PO DAILY PRN PRN Reason: Constipation Metoprolol Tartrate (Metoprolol Tartrate 25 Mg Tab) 25 mg PO BID [facility] Last Admin: 02/07/20 09:10 Dose: 25 mg Documented by: Midodrine (Midodrine 5 Mg Tab) 10 mg PO AC-TID [facility] Last Admin: 02/07/20 16:46 Dose: 10 mg Documented by: Multivitamins (Multivitamins, Thera 1 Each Tab) 1 each PO DAILY [facility] Last Admin: 02/07/20 09:10 Dose: 1 each Documented by: Multivitamins (Multivitamins, Thera 1 Each Tab) 1 each PO DAILY@1200 [facility] Last Admin: 02/07/20 13:09 Dose: 1 each Documented by: Naloxone HCl (Naloxone 0.4 Mg/Ml 1 Ml Vial) 0.2 mg IV Q2M PRN PRN Reason: Opioid Reversal Nitroglycerin (Nitroglycerin Sl Tabs 0.4 Mg Tab) 0.4 mg SUBLINGUAL Q5M PRN PRN Reason: Chest Pain Yupelri 175mcg/3ml (175 Mcg) 175 mcg INHALATION RT-DAILY [facility] Last Admin: 02/07/20 09:11 Dose: Not Given Documented by: Ondansetron HCl (Ondansetron 4 Mg/2 Ml Vial) 4 mg IVP Q8HR PRN PRN Reason: Nausea And Vomiting Last Admin: 02/05/20 11:48 Dose: 4 mg Documented by: Ondansetron HCl (Ondansetron 4 Mg/2 Ml Vial) 4 mg IVP Q8HR [facility] Last Admin: 02/07/20 16:44 Dose: Not Given Documented by: Pantoprazole Sodium (Pantoprazole 40 Mg Tablet) 40 mg PO DAILY@0730 [facility] Last Admin: 02/07/20 09:10 Dose: 40 mg Documented by: Polyethylene Glycol (Polyethylene Glycol 3350 17 Gm Powd.Pack) 17 gm PO HS PRN PRN Reason: Constipation Senna/Docusate Sodium (Sennosides-Docusate Sodium 1 Each Tab) 2 each PO HS [facility] Last Admin: 02/06/20 20:09 Dose: 2 each Documented by: Temazepam (Temazepam 15 Mg Cap) 15 mg PO HS PRN PRN Reason: Insomnia Tramadol HCl (Tramadol 50 Mg Tab) 50 mg PO Q6HR PRN PRN Reason: Pain Scale 1 to 5 Last Admin: 02/07/20 09:15 Dose: 50 mg Documented by: Physical examination: VITAL SIGNS: 97.8, 78, 20, 91/52, 95% on 8 L GENERAL: Up in chair, slightly short of breath EYES: Pupils equal. Conjunctiva normal. NECK: JVD unable to assess masses not palpable. HEART: First and second heart sounds are normal; mild edema present LUNGS: Respiratory rate increased, decreased breath sounds ABDOMEN: Soft, nontender, liver spleen not palpable, no masses palpable. PSYCH: Alert and oriented x3; mood and affect normal. NEUROLOGICAL: Cranial nerves grossly intact; no facial asymmetry, power and sensation grossly intact. MUSCULAR skeletal: Evidence of OA. Limited range of motion on left hip. Investigations: February 06: Potassium 5.1 bun 79 creatinine 4.4 Doppler ultrasound lower extremities-negative for DVT. Chest [id number]-[id number] findings February 05: White count 13.3 hemoglobin 7.2 potassium 5.4 bun 73 creatinine 4.4 White count 11.9 hemoglobin 8.2 platelets 139 potassium 4.0 bun 46 creatinine 2.40 EKG tracing personally reviewed by me-normal sinus rhythm, some flipped T waves in anterior leads Hip x-ray-ID fractured the right femur Chest x-ray film personally reviewed by me-, rotated some chronic changes 2-D echocardiogram [December 2019]-shows moderate concentric LVH and EF of 50-55% %, moderate to severe tricuspid regurgitation, severe pulmonary hypertension Assessment: -Mechanical fall leading to a right femur intertrochanteric fracture-IM hip screw fixation - COPD in an ex-smoker -Chronic congestive heart failure exacerbation from diastolic dysfunction EF 50- 55% % from underlying coronary artery disease -chronic hypoxic respiratory failure, on baseline 4 L oxygen at home -Acute hypoxic respiratory failure now on 8 L of nasal cannula. No DVT. PE less likely. -Moderate to severe tricuspid regurgitation, non-rheumatic -Secondary severe pulmonary hypertension -Essential hypertension -Diabetes mellitus II, -Hyperlipidemia -Hypothyroid -CLL -Chronic macular degeneration -Coronary artery disease with prior history of stent -Obesity BMI 32.6 -Chronic gait dysfunction uses a cane -Chronic kidney stage III -Acute kidney injury secondary to ATN secondary to cardiorenal syndrome. Rec ently taken off hemodialysis about 10 days ago due to recovery renal function.. -Depression not otherwise specified Plan: I did order Doppler ultrasound lower diet extremity. That is negative. Check stat x-ray did not show any obvious fluid overload. Patient is mouth breathing. Home to bring FiO2 down. Thank you Dr. Angeles
[2020-02-08] MEDS: SENNOSIDES-DOCUSATE SODIUM 1 EACH TAB PO SCH ×2 (00:01→23:27)
[2020-02-08] MEDS: ONDANSETRON 4 MG/2 ML VIAL IVP SCH ×4 (04:52→23:28)
[2020-02-08] MEDS: ACETAMINOPHEN TAB 325 MG TAB PO PRN (04:57)
[2020-02-08 06:35] LABS: Anisocytosis Slight; HCT 21.4 % (34.0-46.0); Hypochromasia Slight; MCHC 32.2 g/dL (31.0-37.0); MCV 102.4 fL (80.0-100.0); Macrocytosis Moderate; Mean Platelet Volume 7.8; Platelet Count 148 k/uL (150-450); Poikilocytosis Slight; RBC 2.09 m/uL (3.80-5.40); RDW 16.8 % (11.5-15.5); WBC 11.2 k/uL (3.8-10.6)
[2020-02-08 06:56] LABS: HGB 6.9 gm/dL (11.4-16.0)
[2020-02-08 07:15] LABS: Eosinophils # (M) 0.22 k/uL (0-0.7); Lymphocytes # (M) 6.27 k/uL (1.0-4.8); Monocytes # (M) 0.34 k/uL (0-1.0); Neutrophils # (M) 4.37 k/uL (1.3-7.7); Neutrophils % (M) 39 %; Nucleated Red Blood Cells 0 /100 WBC (0-0); Total Cells Counted 100
[2020-02-08] MEDS: ALBUTEROL HFA INHALER INHALATION PRN (07:41)
[2020-02-08] MEDS: FORMOTEROL FUMARATE 20 MCG/2 ML NEBU INHALATION SCH ×2 (07:45→19:10)
[2020-02-08] MEDS: BUDESONIDE 0.5 MG/2 ML NEBU INHALATION SCH ×2 (07:45→19:11)
[2020-02-08 09:34] LABS: Anisocytosis Slight; Basophils # (A) 0.1 k/uL (0-0.2); Basophils % (A) 1 %; Eosinophils # (A) 0.2 k/uL (0-0.7); Eosinophils % (A) 2 %; HCT 22.7 % (34.0-46.0); HGB 7.1 gm/dL (11.4-16.0); Hypochromasia Slight; Lymphocytes % (A) 53 %; MCH 31.6 pg (25.0-35.0); MCHC 31.3 g/dL (31.0-37.0); Macrocytosis Slight; Mean Platelet Volume 8.5; Monocytes # (A) 0.5 k/uL (0-1.0); Monocytes % (A) 4 %; Neutrophils # (A) 4.3 k/uL (1.3-7.7); Neutrophils % (A) 38 %; Platelet Count 160 k/uL (150-450); Poikilocytosis Slight; RBC 2.25 m/uL (3.80-5.40); RDW 16.8 % (11.5-15.5); WBC 11.3 k/uL (3.8-10.6)
[2020-02-08 10:12] LABS: ALT <8 U/L (8-44); AST 13 U/L (13-35); African American GFR (CKD) 10.3 (60.0-200.0); Albumin/Globulin Ratio 2.21 (1.60-3.17); Alkaline Phosphatase 87 U/L (41-126); BUN/Creat Ratio 19.09 Ratio (12.00-20.00); Calcium 8.2 mg/dL (8.7-10.3); Chloride 96 mmol/L (96-109); Globulin 1.4 g/dL (1.6-3.3); Glucose 127 mg/dL (70-110); Magnesium 1.6 mg/dL (1.5-2.4); Non-African American GFR(CKD) 8.9 (60.0-200.0); Potassium 4.7 mmol/L (3.5-5.5); Sodium 138 mmol/L (135-145); Total Bilirubin 0.4 mg/dL (0.3-1.2); Total Protein 4.5 g/dL (6.2-8.2)
[2020-02-08] MEDS: SODIUM FERRIC GLUCONAT-SUCROSE 125 MG in SODIUM CHLORIDE 0.9% 100 ML IVPB SCH (10:27)
[2020-02-08] MEDS: Yupelri 175mcg/3ml 175 MCG INHALATION SCH (10:28)
[2020-02-08] MEDS: METOPROLOL TARTRATE 25 MG TAB PO SCH ×3 (10:31→23:28)
[2020-02-08] MEDS: ASPIRIN 81 MG PO SCH ×2 (10:32→23:28)
[2020-02-08] MEDS: MULTIVITAMINS, THERA 1 EACH TAB PO SCH ×2 (10:32→11:17)
[2020-02-08] MEDS: LEVOTHYROXINE 100 MCG TAB PO SCH (10:32)
[2020-02-08] MEDS: PANTOPRAZOLE 40 MG TABLET PO SCH (10:32)
[2020-02-08] MEDS: ESCITALOPRAM 10 MG TAB PO SCH (10:35)
[2020-02-08] MEDS: EZETIMIBE 10 MG TAB PO SCH (10:35)
[2020-02-08] MEDS: ISOSORBIDE MONONITRATE ER 60 MG TAB.ER.24H PO SCH (10:40)
[2020-02-08] MEDS: SODIUM CHLORIDE 0.9% 1,000 ML IV SCH (10:41)
--- NOTE | 2020-02-08 11:06 | P.PN ---
Subjective Progress Note Date: 02/08/20 This patient is a 79- year old female who is status-post right Gamma nail for right IT fracture on 02/05/[address] Angeles. Patient is seen and examined bedside this morning. Today is post-operative day #3. She states overall she is feeling ok. She was up with physical therapy this morning to the bedside. Patient states her right hip pain is well-controlled currently, it does increase with any movement. She states she ate her breakfast and is tolerating her diet well. She has not had a bowel movement post- operatively. Patient denies chest pain, shortness of breath, nausea, vomiting, fevers, chills, numbness or tingling of the right lower extremity. She has no complaints this morning. She remains on high flow cannula which was increased to 10 L this morning. Patient was transfused a unit of PRBCs yesterday afternoon per Dr. Gold. Hemoglobin this morning was 6.9, repeat CBC hemoglobin 7.1. Doppler US of the bilateral lower extremities yesterday was negative for DVT. Objective - Vital Signs Vital signs: Vital Signs Temp 97.8 F 02/08/20 04:45 Pulse 83 02/08/20 07:56 Resp 18 02/08/20 07:56 BP 116/66 02/08/20 04:45 Pulse Ox 92 L 02/08/20 04:45 Intake & Output 02/07/20 02/08/20 02/08/20 18:59 06:59 18:59 Intake Total 500 310 Output Total 840 200 Balance -340 110 Intake: IV 400 Lactated Ringers 1,000 ml 400 @ 50 mls/hr IV .Q20H [facility] Rx#:[id number] Oral 100 Blood Product 0 310 Rc Pheresis 2 As3 Unit 0 310 [id number] Output: Urine 840 200 Uretheral (Boggs) 240 Other: Voiding Method Indwelling Catheter Indwelling Catheter - Exam On examination, the patient is sitting up in bed in no apparent distress. She is alert and oriented 3. Nasal cannula in place. On inspection of the right hip, there are clean dressings in place. Dressings are taken down and reveals a benign surgical incisions with intact jody. There is no surrounding erythema or ecchymosis. There is no active drainage. There are no signs of infection. The thigh is soft and compressible. There is a protection boot on the right foot. The right lower extremity is warm and well-perfused with brisk capillary refill distally. Patient is good strength and range of motion of the right ankle. Motor and sensory function are intact of the right lower extremity. There is a pressure ulcer at the posterior right heel, with no open wounds. Right foot was placed back into protection boot. - Labs CBC & Chem 7: 02/08/20 08:56 02/08/20 06:19 Labs: Abnormal Lab Results - Last 24 Hours (Table) 02/05/20 02/07/20 02/08/20 Range/Units 11:02 07:10 06:19 WBC 11.2 H (3.8-10.6) k/uL RBC 2.09 L (3.80-5.40) m/uL Hgb 6.9 L* (11.4-16.0) gm/dL Hct 21.4 L (34.0-46.0) % MCV 102.4 H (80.0-100.0) fL RDW 16.8 H (11.5-15.5) % Plt Count 148 L (150-450) k/uL Lymphocytes # (1.0-4.8) k/uL Lymphocytes # (Manual) 6.27 H (1.0-4.8) k/uL Chloride 92 L (96-109) mmol/L Anion Gap 17.00 H (4.00-12.00) mmol/L BUN 79.0 H (9.0-27.0) mg/dL Creatinine 4.4 H (0.6-1.5) mg/dL Est GFR (CKD-EPI)AfAm 10.3 L (60.0-200.0) Est GFR (CKD-EPI)NonAf 8.9 L (60.0-200.0) Glucose 217 H (70-110) mg/dL Calcium 8.4 L (8.7-10.3) mg/dL ALT (8-44) U/L Total Protein (6.2-8.2) g/dL Albumin (3.80-4.90) g/dL Globulin (1.6-3.3) g/dL Crossmatch See Detail 02/08/20 02/08/20 Range/Units 06:19 08:56 WBC 11.3 H (3.8-10.6) k/uL RBC 2.25 L (3.80-5.40) m/uL Hgb 7.1 L (11.4-16.0) gm/dL Hct 22.7 L (34.0-46.0) % MCV 101.0 H (80.0-100.0) fL RDW 16.8 H (11.5-15.5) % Plt Count (150-450) k/uL Lymphocytes # 6.0 H (1.0-4.8) k/uL Lymphocytes # (Manual) (1.0-4.8) k/uL Chloride (96-109) mmol/L Anion Gap 13.00 H (4.00-12.00) mmol/L BUN 84.0 H (9.0-27.0) mg/dL Creatinine 4.4 H (0.6-1.5) mg/dL Est GFR (CKD-EPI)AfAm 10.3 L (60.0-200.0) Est GFR (CKD-EPI)NonAf 8.9 L (60.0-200.0) Glucose 127 H (70-110) mg/dL Calcium 8.2 L (8.7-10.3) mg/dL ALT <8 L (8-44) U/L Total Protein 4.5 L (6.2-8.2) g/dL Albumin 3.10 L (3.80-4.90) g/dL Globulin 1.4 L (1.6-3.3) g/dL Crossmatch Assessment and Plan Assessment: Right intertrochanteric hip fracture status-post right Gamma nail on 02/05/[address] Angeles. Post-operative day #3. Plan: - Non-weight bearing on the right lower extremity. Up with assistance, up with a walker. - Physical therapy for gait and balance training. - Daily dressing changes of the right hip. Dressing was changed today. - Keep protection boot in place on the right foot due to right posterior heel pressure ulcer. Continue to monitor skin. - DVT prophylaxis per internal medicine. Patient takes Plavix at home. - Discussed ECF today again with the patient. She continues to refuse ECF on discharge, despite Dr. Angeles's recommendations for rehab. This was discussed with social work, and social work has spoken with the patient's daughter.The plan is to discharge the patient to her daughter's home with home health care. - Medical management per internal medicine, nephrology, and pulmonary. - Anticipate discharge when she is cleared from all medical teams.
[2020-02-08] MEDS: MIDODRINE 5 MG TAB PO SCH ×3 (11:16→16:50)
[2020-02-08 12:51] LABS: African American GFR (CKD) 12 (>60 ml/min/1.73 sqM); Anion Gap 10 mmol/L; Blood Urea Nitrogen 86 mg/dL (7-17); Carbon Dioxide 29 mmol/L (22-30); Chloride 95 mmol/L (98-107); Glucose 210 mg/dL (74-99); Magnesium 1.6 mg/dL (1.6-2.3); Non-African American GFR(CKD) 10 (>60 ml/min/1.73 sqM); Potassium 4.8 mmol/L (3.5-5.1); Sodium 134 mmol/L (137-145)
[2020-02-08] MEDS ORDERED: FUROSEMIDE 10 MG/ML 4 ML VIAL IV STA (12:52)
--- NOTE | 2020-02-08 13:06 | P.PN ---
Subjective Patient is seen in follow-up for acute kidney injury on chronic kidney disease. Renal function is better today. Status post hip surgery February 04. Denies chest pain. Currently on 10 L high flow cannula. Oral intake is slowly improving. She did receive a unit of blood yesterday. Hemoglobin 7.1 this morning. Vital signs are stable. General: The patient appeared well nourished and normally developed. HEENT: Head exam is unremarkable. Neck is without jugular venous distension. LUNGS: Breath sounds decreased. HEART: Rate and Rhythm are regular. ABDOMEN: Soft, nontender. EXTREMITITES: No edema. Objective - Vital Signs Vital signs: Vital Signs Temp 97.8 F 02/08/20 04:45 Pulse 90 02/08/20 10:20 Resp 18 02/08/20 07:56 BP 93/50 02/08/20 10:20 Pulse Ox 92 L 02/08/20 04:45 Intake & Output 02/07/20 02/08/20 02/08/20 18:59 06:59 18:59 Intake Total 500 310 Output Total 840 200 200 Balance -340 110 -200 Intake: IV 400 Lactated Ringers 1,000 ml 400 @ 50 mls/hr IV .Q20H [facility] Rx#:[id number] Oral 100 Blood Product 0 310 Rc Pheresis 2 As3 Unit 0 310 [id number] Output: Urine 840 200 200 Uretheral (Boggs) 240 200 Other: Voiding Method Indwelling Catheter Indwelling Catheter Indwelling Catheter - Labs CBC & Chem 7: 02/08/20 08:56 02/08/20 12:28 Labs: Abnormal Lab Results - Last 24 Hours (Table) 02/05/20 02/08/20 02/08/20 Range/Units 11:02 06:19 06:19 WBC 11.2 H (3.8-10.6) k/uL RBC 2.09 L (3.80-5.40) m/uL Hgb 6.9 L* (11.4-16.0) gm/dL Hct 21.4 L (34.0-46.0) % MCV 102.4 H (80.0-100.0) fL RDW 16.8 H (11.5-15.5) % Plt Count 148 L (150-450) k/uL Lymphocytes # (1.0-4.8) k/uL Lymphocytes # (Manual) 6.27 H (1.0-4.8) k/uL Sodium (137-145) mmol/L Chloride (98-107) mmol/L Anion Gap 13.00 H (4.00-12.00) mmol/L BUN 84.0 H (9.0-27.0) mg/dL Creatinine 4.4 H (0.6-1.5) mg/dL Est GFR (CKD-EPI)AfAm 10.3 L (60.0-200.0) Est GFR (CKD-EPI)NonAf 8.9 L (60.0-200.0) Glucose 127 H (70-110) mg/dL Calcium 8.2 L (8.7-10.3) mg/dL ALT <8 L (8-44) U/L Total Protein 4.5 L (6.2-8.2) g/dL Albumin 3.10 L (3.80-4.90) g/dL Globulin 1.4 L (1.6-3.3) g/dL Crossmatch See Detail 02/08/20 02/08/20 Range/Units 08:56 12:28 WBC 11.3 H (3.8-10.6) k/uL RBC 2.25 L (3.80-5.40) m/uL Hgb 7.1 L (11.4-16.0) gm/dL Hct 22.7 L (34.0-46.0) % MCV 101.0 H (80.0-100.0) fL RDW 16.8 H (11.5-15.5) % Plt Count (150-450) k/uL Lymphocytes # 6.0 H (1.0-4.8) k/uL Lymphocytes # (Manual) (1.0-4.8) k/uL Sodium 134 L (137-145) mmol/L Chloride 95 L (98-107) mmol/L Anion Gap (4.00-12.00) mmol/L BUN 86 H (9.0-27.0) mg/dL Creatinine 3.93 H (0.6-1.5) mg/dL Est GFR (CKD-EPI)AfAm (60.0-200.0) Est GFR (CKD-EPI)NonAf (60.0-200.0) Glucose 210 H (70-110) mg/dL Calcium 8.0 L (8.7-10.3) mg/dL ALT (8-44) U/L Total Protein (6.2-8.2) g/dL Albumin (3.80-4.90) g/dL Globulin (1.6-3.3) g/dL Crossmatch Assessment and Plan Plan: Assessment: 1. Acute kidney injury secondary to ATN secondary to acute anemia and hypotension. Recently taken off hemodialysis due to recovery of renal function. Creatinine peaked at 4.4 this admission and is 3.93 today. 2. Chronic diastolic CHF with tricuspid regurgitation and severe pulmonary hypertension. 3. Status post fall with right hip fracture. Status post right hip screw fixation on February 04. 4. Chronic kidney disease stage III with baseline creatinine 1-1.5 prior to initiating hemodialysis. Etiology is nephrosclerosis. UA is benign. 5. Anemia of chronic kidney disease. Iron deficiency noted. Maintained on Aranesp. Component of acute blood loss anemia post surgery. Status post blood transfusion February 06. 6. Hypomagnesemia from poor intake and diuresis. Plan: Maintain normal saline. Continue to hold hemodialysis. Continue to assess on a daily basis. Continue to monitor renal function and urine output. IV iron 3 doses. Third dose today. Encourage oral intake. Added ensure. Strict is and os. Transfuse 1 unit of packed red cells today. Lasix 40 mg IV after blood transfusion completed. Replace magnesium. 2 g IV today.
[2020-02-08 13:20] VITALS: BMI 30.9
[2020-02-08] MEDS: MAGNESIUM SULFATE-D5W PMX 1 GM in DEXTROSE/WATER 1 100ML.BAG IVPB SCH ×2 (13:32→14:41)
--- NOTE | 2020-02-08 14:46 | P.PN ---
Subjective Progress Note Date: 02/08/20 Principal diagnosis: Fall with right hip fracture The patient is seen today 02/08/2020 in follow-up on the regular medical floor. She was admitted on 02/03/2020 after sustaining a fall at home and developed a right hip fracture. She is status post intramedullary hip screw fixation for right trochanteric fracture. Postoperative day #3. She does have advanced COPD and requires 4 L of oxygen at home. She is chronic hypoxemic respiratory failure, sleep apnea syndrome, CAD, CLL, pulmonary hypertension, chronic kidney disease, previous tobacco dependence, hypothyroidism, hypogammaglobulinemia, essential hypertension, macular degeneration. Presently, up in a chair at the bedside. Awake and alert in no acute distress. She is requiring 10 L high flow nasal cannula to maintain O2 saturations in the low 90s. She's been afebrile. Hemodynamically stable. She was also anemic with hemoglobin is 6.9 and is receiving 1 unit of packed red blood cells. White count 11.3. Sodium 134. Potassium 4.8. Creatinine 3.93. Chest x-ray revealed stable findings with chronic changes and cardiomegaly small bilateral pleural effusions with atelectasis at the bases. She needs increased encouragement regarding the use of the incentive spirometer and cough and deep breathing exercises. Doppler of the lower extremities were negative for DVT. Objective - Vital Signs Vital signs: Vital Signs Temp 97.8 F 02/08/20 04:45 Pulse 90 02/08/20 10:20 Resp 18 02/08/20 07:56 BP 93/50 02/08/20 10:20 Pulse Ox 92 L 02/08/20 04:45 Intake & Output 02/07/20 02/08/20 02/08/20 18:59 06:59 18:59 Intake Total 500 310 Output Total 840 200 200 Balance -340 110 -200 Weight 81.647 kg Intake: IV 400 Lactated Ringers 1,000 ml 400 @ 50 mls/hr IV .Q20H [facility] Rx#:[id number] Oral 100 Blood Product 0 310 Rc Pheresis 2 As3 Unit 0 310 [id number] Output: Urine 840 200 200 Uretheral (Boggs) 240 200 Other: Voiding Method Indwelling Catheter Indwelling Catheter Indwelling Catheter - Exam GENERAL EXAM: Alert, pleasant 79-year-old female patient, on 10 L high flow nasal cannula, comfortable in no apparent distress. HEAD: Normocephalic. EYES: Normal reaction of pupils, equal size. NOSE: Clear with pink turbinates. THROAT: No erythema or exudates. NECK: No masses, no JVD. CHEST: No chest wall deformity. LUNGS: Equal air entry with few scattered rhonchi with diminished CVS: S1 and S2 normal with no audible murmur, regular rhythm. ABDOMEN: No hepatosplenomegaly, normal bowel sounds, no guarding or rigidity. SPINE: No scoliosis or deformity SKIN: No rashes CENTRAL NERVOUS SYSTEM: No focal deficits, tone is normal in all 4 extremities. EXTREMITIES: Dressing the right hip dry and intact. There is no peripheral edema. No clubbing, no cyanosis. Peripheral pulses are intact. - Labs CBC & Chem 7: 02/08/20 08:56 02/08/20 12:28 Labs: Abnormal Lab Results - Last 24 Hours (Table) 02/05/20 02/08/20 02/08/20 Range/Units 11:02 06:19 06:19 WBC 11.2 H (3.8-10.6) k/uL RBC 2.09 L (3.80-5.40) m/uL Hgb 6.9 L* (11.4-16.0) gm/dL Hct 21.4 L (34.0-46.0) % MCV 102.4 H (80.0-100.0) fL RDW 16.8 H (11.5-15.5) % Plt Count 148 L (150-450) k/uL Lymphocytes # (1.0-4.8) k/uL Lymphocytes # (Manual) 6.27 H (1.0-4.8) k/uL Sodium (137-145) mmol/L Chloride (98-107) mmol/L Anion Gap 13.00 H (4.00-12.00) mmol/L BUN 84.0 H (9.0-27.0) mg/dL Creatinine 4.4 H (0.6-1.5) mg/dL Est GFR (CKD-EPI)AfAm 10.3 L (60.0-200.0) Est GFR (CKD-EPI)NonAf 8.9 L (60.0-200.0) Glucose 127 H (70-110) mg/dL Calcium 8.2 L (8.7-10.3) mg/dL ALT <8 L (8-44) U/L Total Protein 4.5 L (6.2-8.2) g/dL Albumin 3.10 L (3.80-4.90) g/dL Globulin 1.4 L (1.6-3.3) g/dL Crossmatch See Detail 02/08/20 02/08/20 02/08/20 Range/Units 08:56 12:28 12:28 WBC 11.3 H (3.8-10.6) k/uL RBC 2.25 L (3.80-5.40) m/uL Hgb 7.1 L (11.4-16.0) gm/dL Hct 22.7 L (34.0-46.0) % MCV 101.0 H (80.0-100.0) fL RDW 16.8 H (11.5-15.5) % Plt Count (150-450) k/uL Lymphocytes # 6.0 H (1.0-4.8) k/uL Lymphocytes # (Manual) (1.0-4.8) k/uL Sodium 134 L (137-145) mmol/L Chloride 95 L (98-107) mmol/L Anion Gap (4.00-12.00) mmol/L BUN 86 H (9.0-27.0) mg/dL Creatinine 3.93 H (0.6-1.5) mg/dL Est GFR (CKD-EPI)AfAm (60.0-200.0) Est GFR (CKD-EPI)NonAf (60.0-200.0) Glucose 210 H (70-110) mg/dL Calcium 8.0 L (8.7-10.3) mg/dL ALT (8-44) U/L Total Protein (6.2-8.2) g/dL Albumin (3.80-4.90) g/dL Globulin (1.6-3.3) g/dL Crossmatch See Detail Assessment and Plan Assessment: 1 With right hip fracture requiring right hip intramedullary screw fixation, postoperative day #3 2 Acute on chronic hypoxemic respiratory failure currently on 10 liters high flow nasal cannula 3 Advanced chronic obstructive pulmonary disease on home oxygen at 4 L 4 History of obstructive sleep apnea, declined CPAP therapy 5 Coronary artery disease with previous stent placement 6 CLL 7 Severe pulmonary hypertension 8 Acute on chronic kidney disease 9 History of chronic tobacco dependence 10 Hypothyroidism 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 Shoemaker Add DuoNeb inhalations 4 times a day Continue Pulmicort and Perforomist Add prednisone 40 mg daily Add empiric antibiotics Encourage increased use of the incentive spirometer and cough and deep breathing exercises Titrate down the FiO2 as tolerated Dopplers negative for DVT Increase her activity as tolerated We will continue to follow I, the cosigning physician, performed a history & physical examination of the patient. Lungs sounds few scattered rhonchi. Maintaining good O2 saturations in the 90s on 10 L high flow nasal cannula. I discussed the assessment and plan of care with my nurse practitioner, Caty Chaudhary. I attest to the above note as dictated by her.
[2020-02-08] MEDS: AZITHROMYCIN 500 MG TAB PO SCH (15:17)
[2020-02-08] MEDS: predniSONE 20 MG TAB PO SCH (15:17)
[2020-02-08] MEDS: IPRATROPIUM-ALBUTEROL 3 ML NEB INHALATION SCH ×2 (15:24→19:10)
[2020-02-08] MEDS ORDERED: KETOROLAC 15 MG/ML 1 ML VIAL IVP SCH (19:00)
--- NOTE | 2020-02-08 23:16 | P.PN ---
Progress Note - Text Progress Note Date: 02/08/20 - Chief Complaint Left hip pain History of presenting complaint: This is a very pleasant 79-year-old patient of Dr. Steph Dooley. Chronic stable medical conditions include hyperlipidemia, hypertension, obstructive sleep apnea does not use a CPAP machine, hypothyroid, CLL, macular degeneration, coronary artery disease with stent/2007. Home oxygen 4-5 L. . Admitted on January 06 with unstable angina. Nitrates was added. PE was ruled out. Patient now tripped and fell falling on her right hip. Has a fracture. Is on home oxygen on 4 L. Patient's hemodialysis of been on hold for a few days. No chest pain or palpitation. Breathing is stable. No fever no chills. Otherwise at her baseline. No chest pain. February 04-underwent right hip IM hip screw fixation for the IT fracture. Oxygen requirement went up to 8 L. Been followed by Dr. Shoemaker. Had a drop in hemoglobin. Blood being transfused. Today-up in a chair. On 8 L of nasal cannula. Oral intake improved to 75%. Breathing was stable. Review of systems: Was done for constitutional, cardiovascular, GI, pulmonary. relevant finding as above Active Medications Acetaminophen (Acetaminophen Tab 325 Mg Tab) 650 mg PO Q4HR PRN PRN Reason: Pain Scale 1 to 5 Last Admin: 02/08/20 04:57 Dose: 650 mg Documented by: Hydrocodone Bitart/Acetaminophen (Hydrocodone/Apap 5-325mg 1 Each Tab) 1 each PO Q6HR PRN PRN Reason: Pain Scale 1 to 5 Albuterol/Ipratropium (Ipratropium-Albuterol 3 Ml Neb) 3 ml INHALATION RT-QID [facility] Last Admin: 02/08/20 19:10 Dose: 3 ml Documented by: Aspirin (Aspirin 81 Mg) 81 mg PO BID JACK Atorvastatin Calcium (Atorvastatin 40 Mg Tab) 40 mg PO HS [facility] Last Admin: 02/08/20 00:00 Dose: Not Given Documented by: Azithromycin (Azithromycin 500 Mg Tab) 500 mg PO DAILY@1500 [facility] Last Admin: 02/08/20 15:17 Dose: 500 mg Documented by: Budesonide (Budesonide 0.5 Mg/2 Ml Nebu) 0.5 mg INHALATION RT-BID [facility] Last Admin: 02/08/20 19:11 Dose: 0.5 mg Documented by: Darbepoetin Zeferino (Darbepoetin Zeferino 40 Mcg/0.4 Ml Syringe) 40 mcg SQ Q7D [facility] Last Admin: 02/04/20 16:38 Dose: 40 mcg Documented by: Ezetimibe (Ezetimibe 10 Mg Tab) 10 mg PO DAILY [facility] Last Admin: 02/08/20 10:35 Dose: 10 mg Documented by: Escitalopram Oxalate (Escitalopram 10 Mg Tab) 10 mg PO DAILY [facility] Last Admin: 02/08/20 10:35 Dose: 10 mg Documented by: Formoterol Fumarate (Formoterol Fumarate 20 Mcg/2 Ml Nebu) 20 mcg INHALATION RT-BID [facility] Last Admin: 02/08/20 19:10 Dose: 20 mcg Documented by: Hydromorphone HCl (Hydromorphone 0.5 Mg/0.5 Ml Syringe) 0.5 mg IVP Q3HR PRN PRN Reason: Moderate Pain Last Admin: 02/04/20 21:19 Dose: 0.5 mg Documented by: Hydromorphone HCl (Hydromorphone 1 Mg/Ml 1 Ml Syringe) 1 mg IVP Q3HR PRN PRN Reason: Severe Pain Hydromorphone HCl (Hydromorphone 0.2 Mg/1 Ml Syringe) 0.2 mg IVP Q3HR PRN PRN Reason: Pain Scale 4 to 6 Hydromorphone HCl (Hydromorphone 0.5 Mg/0.5 Ml Syringe) 0.125 mg IVP Q3HR PRN PRN Reason: Pain Scale 1 to 3 Hydromorphone HCl (Hydromorphone 0.5 Mg/0.5 Ml Syringe) 0.5 mg IVP Q3HR PRN PRN Reason: Pain Scale 7 to 10 Last Admin: 02/06/20 01:27 Dose: 0.5 mg Documented by: Ferric Sodium Gluconate 125 mg (/ Sodium Chloride) 110 mls @ 100 mls/hr IVPB DAILY [facility] Stop: 02/09/20 12:46 Last Admin: 02/08/20 10:27 Dose: 100 mls/hr Documented by: Sodium Chloride (Saline 0.9%) 1,000 mls @ 20 mls/hr IV .Q24H [facility] Last Admin: 02/08/20 10:41 Dose: 50 mls/hr Documented by: Isosorbide Mononitrate (Isosorbide Mononitrate Er 60 Mg Tab.Er.24h) 60 mg PO DAILY [facility] Last Admin: 02/08/20 10:40 Dose: Not Given Documented by: Levothyroxine Sodium (Levothyroxine 100 Mcg Tab) 100 mcg PO DAILY@0630 [facility] Last Admin: 02/08/20 10:32 Dose: 100 mcg Documented by: Levothyroxine Sodium (Levothyroxine 50 Mcg Tab) 50 mcg PO [facility] Loratadine (Loratadine 10 Mg Tab) 10 mg PO DAILY PRN PRN Reason: Allergy Symptoms Magnesium Hydroxide (Magnesium Hydroxide 2,400 Mg/10 Ml Cup) 2,400 mg PO DAILY PRN PRN Reason: Constipation Metoprolol Tartrate (Metoprolol Tartrate 25 Mg Tab) 25 mg PO BID [facility] Last Admin: 02/08/20 10:31 Dose: 25 mg Documented by: Midodrine (Midodrine 5 Mg Tab) 10 mg PO AC-TID [facility] Last Admin: 02/08/20 16:50 Dose: 10 mg Documented by: Multivitamins (Multivitamins, Thera 1 Each Tab) 1 each PO DAILY [facility] Last Admin: 02/08/20 10:32 Dose: 1 each Documented by: Multivitamins (Multivitamins, Thera 1 Each Tab) 1 each PO DAILY@1200 [facility] Last Admin: 02/08/20 11:17 Dose: 1 each Documented by: Naloxone HCl (Naloxone 0.4 Mg/Ml 1 Ml Vial) 0.2 mg IV Q2M PRN PRN Reason: Opioid Reversal Nitroglycerin (Nitroglycerin Sl Tabs 0.4 Mg Tab) 0.4 mg SUBLINGUAL Q5M PRN PRN Reason: Chest Pain Yupelri 175mcg/3ml (175 Mcg) 175 mcg INHALATION RT-DAILY [facility] Last Admin: 02/08/20 10:28 Dose: Not Given Documented by: Ondansetron HCl (Ondansetron 4 Mg/2 Ml Vial) 4 mg IVP Q8HR PRN PRN Reason: Nausea And Vomiting Last Admin: 02/05/20 11:48 Dose: 4 mg Documented by: Ondansetron HCl (Ondansetron 4 Mg/2 Ml Vial) 4 mg IVP Q8HR [facility] Last Admin: 02/08/20 15:17 Dose: 4 mg Documented by: Pantoprazole Sodium (Pantoprazole 40 Mg Tablet) 40 mg PO DAILY@0730 [facility] Last Admin: 02/08/20 10:32 Dose: 40 mg Documented by: Polyethylene Glycol (Polyethylene Glycol 3350 17 Gm Powd.Pack) 17 gm PO HS PRN PRN Reason: Constipation Prednisone (Prednisone 20 Mg Tab) 40 mg PO DAILY [facility] Last Admin: 02/08/20 15:17 Dose: 40 mg Documented by: Senna/Docusate Sodium (Sennosides-Docusate Sodium 1 Each Tab) 2 each PO HS [facility] Last Admin: 02/08/20 00:01 Dose: Not Given Documented by: Temazepam (Temazepam 15 Mg Cap) 15 mg PO HS PRN PRN Reason: Insomnia Tramadol HCl (Tramadol 50 Mg Tab) 50 mg PO Q6HR PRN PRN Reason: Pain Scale 1 to 5 Last Admin: 02/07/20 09:15 Dose: 50 mg Documented by: Physical examination: VITAL SIGNS: 97.5, 78, 16, 97/60, 92% on 8 L GENERAL: Up in chair, slightly short of breath EYES: Pupils equal. Conjunctiva normal. NECK: JVD unable to assess masses not palpable. HEART: First and second heart sounds are normal; mild edema present LUNGS: Respiratory rate increased, decreased breath sounds ABDOMEN: Soft, nontender, liver spleen not palpable, no masses palpable. PSYCH: Alert and oriented x3; mood and affect normal. NEUROLOGICAL: Cranial nerves grossly intact; no facial asymmetry, power and sensation grossly intact. MUSCULAR skeletal: Evidence of OA. Limited range of motion on right hip. Investigations: February 06: Potassium 5.1 bun 79 creatinine 4.4 Doppler ultrasound lower extremities-negative for DVT. Chest [id number] findings February 05: White count 13.3 hemoglobin 7.2 potassium 5.4 bun 73 creatinine 4.4 White count 11.9 hemoglobin 8.2 platelets 139 potassium 4.0 bun 46 creatinine 2.40 EKG tracing personally reviewed by me-normal sinus rhythm, some flipped T waves in anterior leads Hip x-ray-ID fractured the right femur Chest x-ray film personally reviewed by me-, rotated some chronic changes 2-D echocardiogram [December 2019]-shows moderate concentric LVH and EF of 50-55% %, moderate to severe tricuspid regurgitation, severe pulmonary hypertension Assessment: -Mechanical fall leading to a right femur intertrochanteric fracture-IM hip screw fixation - COPD in an ex-smoker -Chronic congestive heart failure exacerbation from diastolic dysfunction EF 50- 55% % from underlying coronary artery disease -chronic hypoxic respiratory failure, on baseline 4 L oxygen at home -Acute hypoxic respiratory failure now on 8 L of nasal cannula. No DVT. PE less likely. -Moderate to severe tricuspid regurgitation, non-rheumatic -Secondary severe pulmonary hypertension -Essential hypertension -Diabetes mellitus II, -Hyperlipidemia -Hypothyroid -CLL -Chronic macular degeneration -Coronary artery disease with prior history of stent -Obesity BMI 32.6 -Chronic gait dysfunction uses a cane -Chronic kidney stage III -Acute kidney injury secondary to ATN secondary to cardiorenal syndrome. Recently taken off hemodialysis about 10 days ago due to recovery renal function.. -Depression not otherwise specified -Acute postprocedure blood loss anemia as expected from surgery. Patient getting blood transfusion Plan: Patient is getting blood transfusion. Other medications to continue. Been fo llowed by Dr. Dumont from pulmonary. FiO2 can be decreased. Thank you Dr. Angeles
[2020-02-08] MEDS: ATORVASTATIN 40 MG TAB PO SCH ×2 (23:28)
[2020-02-09] MEDS: SODIUM CHLORIDE 0.9% 1,000 ML IV SCH (02:48)
[2020-02-09 06:10] LABS: African American GFR (CKD) 12 (>60 ml/min/1.73 sqM); Anion Gap 11 mmol/L; Blood Urea Nitrogen 85 mg/dL (7-17); Calcium 8.7 mg/dL (8.4-10.2); Carbon Dioxide 28 mmol/L (22-30); Chloride 95 mmol/L (98-107); Glucose 203 mg/dL (74-99); Magnesium 2.3 mg/dL (1.6-2.3); Non-African American GFR(CKD) 10 (>60 ml/min/1.73 sqM); Potassium 5.4 mmol/L (3.5-5.1); Sodium 134 mmol/L (137-145)
[2020-02-09] MEDS ORDERED: LEVOTHYROXINE 50 MCG TAB PO SCH (06:30)
[2020-02-09] MEDS: Yupelri 175mcg/3ml 175 MCG INHALATION SCH (07:19)
[2020-02-09] MEDS: FORMOTEROL FUMARATE 20 MCG/2 ML NEBU INHALATION SCH ×2 (07:32→19:39)
[2020-02-09] MEDS: BUDESONIDE 0.5 MG/2 ML NEBU INHALATION SCH ×2 (07:33→19:39)
[2020-02-09] MEDS: IPRATROPIUM-ALBUTEROL 3 ML NEB INHALATION SCH ×4 (07:33→19:39)
[2020-02-09] MEDS: SODIUM FERRIC GLUCONAT-SUCROSE 125 MG in SODIUM CHLORIDE 0.9% 100 ML IVPB SCH (08:58)
[2020-02-09] MEDS: ASPIRIN 81 MG PO SCH ×2 (09:00→20:58)
[2020-02-09] MEDS: MIDODRINE 5 MG TAB PO SCH ×3 (09:00→15:44)
[2020-02-09] MEDS: EZETIMIBE 10 MG TAB PO SCH (09:01)
[2020-02-09] MEDS: MULTIVITAMINS, THERA 1 EACH TAB PO SCH ×2 (09:01→12:19)
[2020-02-09] MEDS: ESCITALOPRAM 10 MG TAB PO SCH (09:01)
[2020-02-09] MEDS: predniSONE 20 MG TAB PO SCH (09:01)
[2020-02-09] MEDS: AZITHROMYCIN 500 MG TAB PO SCH (09:01)
[2020-02-09] MEDS: LEVOTHYROXINE 100 MCG TAB PO SCH (09:02)
[2020-02-09] MEDS: PANTOPRAZOLE 40 MG TABLET PO SCH (09:02)
[2020-02-09] MEDS: ONDANSETRON 4 MG/2 ML VIAL IVP SCH ×2 (09:02→15:44)
[2020-02-09] MEDS: METOPROLOL TARTRATE 25 MG TAB PO SCH ×2 (09:03→20:58)
[2020-02-09] MEDS: ISOSORBIDE MONONITRATE ER 60 MG TAB.ER.24H PO SCH (09:08)
--- NOTE | 2020-02-09 10:20 | P.PN ---
Subjective Progress Note Date: 02/09/20 This patient is a 79- year old female who is status-post right Gamma nail for right IT fracture on 02/05/[address] Angeles. Patient is seen and examined bedside this morning. Today is post-operative day #4. Patient states she overall feels well today and has no complaints besides mild right hip pain. She states her hip pain is currently well-controlled. She is up in the bedside chair currently. Patient states the transfer to the chair was difficult. She states she has been remaining nonweightbearing on the right lower extremity. She tolerated her breakfast well. She denies chest pain, shortness breath, nausea, vomiting, fevers, chills, numbness or tingling of the right lower extremity. She does not have any complaints at this time. Vital signs are currently stable, she remains on 10 L high flow cannula with O2 saturations in the low 90s. Patient is also being followed by internal medicine, pulmonary, and nephrology. Patient has been transfused 2 units of PRBCs. Doppler US of the bilateral lower extremities 02/07/20 was negative for DVT. Objective - Vital Signs Vital signs: Vital Signs Temp 97.7 F 02/09/20 05:44 Pulse 90 02/09/20 09:07 Resp 14 02/09/20 09:07 BP 125/72 02/09/20 09:07 Pulse Ox 92 L 02/09/20 09:07 Intake & Output 02/08/20 02/09/20 02/09/20 18:59 06:59 18:59 Intake Total 0 310 Output Total 275 1700 Balance -275 -1390 Weight 81.647 kg Intake: Blood Product 0 310 Rc As-1 Unit 0 310 [id number] Output: Urine 275 1700 Uretheral (Boggs) 200 850 Other: Voiding Method Indwelling Catheter Indwelling Catheter - Exam On examination, the patient is sitting up in the bedside chair in no apparent distress. She is alert and oriented 3. Nasal cannula in place. On inspection of the right hip, there are clean dressings in place.There is no active drainage. There are no signs of infection. The thigh is soft and compressible. There is a protection boot on the right foot. The right lower extremity is warm and well-perfused with brisk capillary refill distally. Patient is good strength and range of motion of the right ankle. Motor and sensory function are intact of the right lower extremity. There is a pressure ulcer at the posterior right heel, with no open wounds. Right foot was placed back into protection boot. - Labs CBC & Chem 7: 02/08/20 08:56 02/09/20 05:22 Labs: Abnormal Lab Results - Last 24 Hours (Table) 02/08/20 02/08/20 02/08/20 Range/Units 06:19 12:28 12:28 Sodium 134 L (137-145) mmol/L Potassium (3.5-5.1) mmol/L Chloride 95 L (98-107) mmol/L Anion Gap 13.00 H (4.00-12.00) mmol/L BUN 84.0 H 86 H (9.0-27.0) mg/dL Creatinine 4.4 H 3.93 H (0.6-1.5) mg/dL Est GFR (CKD-EPI)AfAm 10.3 L (60.0-200.0) Est GFR (CKD-EPI)NonAf 8.9 L (60.0-200.0) Glucose 127 H 210 H (70-110) mg/dL Calcium 8.2 L 8.0 L (8.7-10.3) mg/dL ALT <8 L (8-44) U/L Total Protein 4.5 L (6.2-8.2) g/dL Albumin 3.10 L (3.80-4.90) g/dL Globulin 1.4 L (1.6-3.3) g/dL Crossmatch See Detail 02/09/20 Range/Units 05:22 Sodium 134 L (137-145) mmol/L Potassium 5.4 H (3.5-5.1) mmol/L Chloride 95 L (98-107) mmol/L Anion Gap (4.00-12.00) mmol/L BUN 85 H (9.0-27.0) mg/dL Creatinine 3.88 H (0.6-1.5) mg/dL Est GFR (CKD-EPI)AfAm (60.0-200.0) Est GFR (CKD-EPI)NonAf (60.0-200.0) Glucose 203 H (70-110) mg/dL Calcium (8.7-10.3) mg/dL ALT (8-44) U/L Total Protein (6.2-8.2) g/dL Albumin (3.80-4.90) g/dL Globulin (1.6-3.3) g/dL Crossmatch Assessment and Plan Assessment: Right intertrochanteric hip fracture status-post right Gamma nail on 02/05/[address] Angeles. Post-operative day #4. Plan: - Non-weight bearing on the right lower extremity. Up with assistance, up with a walker. - Physical therapy for gait and balance training. - Daily dressing changes of the right hip. Dressing was changed today per nursing. - Keep protection boot in place on the right foot due to right posterior heel pressure ulcer. Continue to monitor skin. - DVT prophylaxis with aspirin 81mg BID. Patient also takes Plavix at home. - Patient continues to refuse ECF on discharge, despite Dr. Angeles's recommendations for rehab. This was discussed with social work, and social work has spoken with the patient's daughter.The plan is to discharge the patient to her daughter's home with home health care. - Medical management per internal medicine, nephrology, and pulmonary. - Anticipate discharge when she is cleared from all medical teams.
[2020-02-09 10:24] LABS: Anisocytosis Slight; HCT 27.4 % (34.0-46.0); HGB 8.4 gm/dL (11.4-16.0); Hypochromasia Moderate; MCH 31.3 pg (25.0-35.0); MCHC 30.5 g/dL (31.0-37.0); MCV 102.5 fL (80.0-100.0); Macrocytosis Moderate; Mean Platelet Volume 8.9; Platelet Count 188 k/uL (150-450); RBC 2.67 m/uL (3.80-5.40); RDW 17.8 % (11.5-15.5); WBC 17.5 k/uL (3.8-10.6)
[2020-02-09 11:22] LABS: Band Neutrophils % 1 %; Lymphocytes # (M) 9.45 k/uL (1.0-4.8); Metamyelocytes # (M) 0.35 k/uL (0); Metamyelocytes % 2 %; Monocytes # (M) 0.53 k/uL (0-1.0); Myelocytes # (M) 0.53 k/uL (0); Myelocytes % 3 %; Neutrophils % (M) 39 %; Nucleated Red Blood Cells 0 /100 WBC (0-0); Polychromasia Present; Total Cells Counted 200
--- NOTE | 2020-02-09 12:25 | P.PN ---
Subjective Patient is seen in follow-up for acute kidney injury on chronic kidney disease. Renal function is stable. Status post hip surgery February 04. Denies chest pain. Currently on 10 L high flow cannula. Oral intake is slowly improving. She did receive a unit of blood on 02/07/20. Hemoglobin 8.4 this morning. Nonoliguric. Vital signs are stable. General: The patient appeared well nourished and normally developed. HEENT: Head exam is unremarkable. Neck is without jugular venous distension. LUNGS: Breath sounds decreased. HEART: Rate and Rhythm are regular. ABDOMEN: Soft, nontender. EXTREMITITES: No edema. Objective - Vital Signs Vital signs: Vital Signs Temp 97.7 F 02/09/20 05:44 Pulse 80 02/09/20 11:04 Resp 14 02/09/20 09:07 BP 125/72 02/09/20 09:07 Pulse Ox 92 L 02/09/20 09:07 Intake & Output 02/08/20 02/09/20 02/09/20 18:59 06:59 18:59 Intake Total 0 310 Output Total 275 1700 Balance -275 -1390 Weight 81.647 kg Intake: Blood Product 0 310 Rc As-1 Unit 0 310 [id number] Output: Urine 275 1700 Uretheral (Boggs) 200 850 Other: Voiding Method Indwelling Catheter Indwelling Catheter Indwelling Catheter - Labs CBC & Chem 7: 02/09/20 05:22 02/09/20 05:22 Labs: Abnormal Lab Results - Last 24 Hours (Table) 02/08/20 02/08/20 02/09/20 Range/Units 12:28 12:28 05:22 WBC (3.8-10.6) k/uL RBC (3.80-5.40) m/uL Hgb (11.4-16.0) gm/dL Hct (34.0-46.0) % MCV (80.0-100.0) fL MCHC (31.0-37.0) g/dL RDW (11.5-15.5) % Lymphocytes # (Manual) (1.0-4.8) k/uL Metamyelocytes # (Man) (0) k/uL Myelocytes # (Manual) (0) k/uL Sodium 134 L 134 L (137-145) mmol/L Potassium 5.4 H (3.5-5.1) mmol/L Chloride 95 L 95 L (98-107) mmol/L BUN 86 H 85 H (7-17) mg/dL Creatinine 3.93 H 3.88 H (0.52-1.04) mg/dL Glucose 210 H 203 H (74-99) mg/dL Calcium 8.0 L (8.4-10.2) mg/dL Crossmatch See Detail 02/09/20 Range/Units 05:22 WBC 17.5 H (3.8-10.6) k/uL RBC 2.67 L (3.80-5.40) m/uL Hgb 8.4 L (11.4-16.0) gm/dL Hct 27.4 L (34.0-46.0) % MCV 102.5 H (80.0-100.0) fL MCHC 30.5 L (31.0-37.0) g/dL RDW 17.8 H (11.5-15.5) % Lymphocytes # (Manual) 9.45 H (1.0-4.8) k/uL Metamyelocytes # (Man) 0.35 H (0) k/uL Myelocytes # (Manual) 0.53 H (0) k/uL Sodium (137-145) mmol/L Potassium (3.5-5.1) mmol/L Chloride (98-107) mmol/L BUN (7-17) mg/dL Creatinine (0.52-1.04) mg/dL Glucose (74-99) mg/dL Calcium (8.4-10.2) mg/dL Crossmatch Assessment and Plan Plan: Assessment: 1. Acute kidney injury secondary to ATN secondary to acute anemia and hypotension. Recently taken off hemodialysis due to recovery of renal function. Creatinine peaked at 4.4 this admission and is 3.88 today. 2. Chronic diastolic CHF with tricuspid regurgitation and severe pulmonary hypertension. 3. Fall with right hip fracture. Status post right hip screw fixation on February 04. 4. Chronic kidney disease stage III with baseline creatinine 1-1.5 prior to initiating hemodialysis. Etiology is nephrosclerosis. UA is benign. 5. Anemia of chronic kidney disease. Iron deficiency noted. Status post IV iron. Maintained on Aranesp. Component of acute blood loss anemia post surgery. Status post blood transfusion February 06. 6. Hypomagnesemia from poor intake and diuresis. Status post replacement. Better. 7. Mild hyperkalemia secondary to acute kidney injury and hyperglycemia. Plan: Off IV fluids. Status post IV Lasix yesterday which was given post blood transfusion. Continue to hold hemodialysis. Continue to assess on a daily basis. Continue to monitor renal function and urine output. Encourage oral intake. Added ensure. Strict is and os. Check chest x-ray. Also scheduled for VQ scan today. Low potassium diet.
--- NOTE | 2020-02-09 13:30 | NM ---
EXAMINATION TYPE: NM pul perfusion DATE OF EXAM: 02/09/2020 COMPARISON: 01/09/2020 HISTORY: 79-year-old female hypoxemia Technique: Following administration of 5.2 mCi Tc 99m MAA. Images obtained post injection. Only the perfusion images are performed. FINDINGS: Photopenia related to the cardiac silhouette. Additional linear photopenia relating to the major fiss ure. No suspicious perfusion defect is identified. IMPRESSION: Low probability for pulmonary embolus.
--- NOTE | 2020-02-09 15:03 | P.PN ---
Subjective Progress Note Date: 02/09/20 Principal diagnosis: Fall with right hip fracture The patient is seen today 02/08/2020 in follow-up on the regular medical floor. She was admitted on 02/03/2020 after sustaining a fall at home and developed a right hip fracture. She is status post intramedullary hip screw fixation for right trochanteric fracture. Postoperative day #3. She does have advanced COPD and requires 4 L of oxygen at home. She is chronic hypoxemic respiratory failure, sleep apnea syndrome, CAD, CLL, pulmonary hypertension, chronic kidney disease, previous tobacco dependence, hypothyroidism, hypogammaglobulinemia, essential hypertension, macular degeneration. Presently, up in a chair at the bedside. Awake and alert in no acute distress. She is requiring 10 L high flow nasal cannula to maintain O2 saturations in the low 90s. She's been afebrile. Hemodynamically stable. She was also anemic with hemoglobin is 6.9 and is receiving 1 unit of packed red blood cells. White count 11.3. Sodium 134. Potassium 4.8. Creatinine 3.93. Chest x-ray revealed stable findings with chronic changes and cardiomegaly small bilateral pleural effusions with atelectasis at the bases. She needs increased encouragement regarding the use of the incentive spirometer and cough and deep breathing exercises. Doppler of the lower extremities were negative for DVT. Patient is seen today 02/09/2020 in follow-up on the regular medical floor. She is currently resting comfortably in bed. Awake and alert in no acute distress. Postoperative day #4. Denies any worsening shortness of breath, cough or congestion. Still requiring 10 L of high flow nasal cannula to maintain O2 saturation in low 90s. Dopplers of the lower extremity were negative. VQ scan reveals low probability for pulmonary embolus. Remains on DuoNeb inhalations, Pulmicort and Perforomist inhalations, prednisone. Needs increased encouragement regarding the use the incentive spirometer and cough and deep breathing exercises. Objective - Vital Signs Vital signs: Vital Signs Temp 97.7 F 02/09/20 05:44 Pulse 80 02/09/20 11:04 Resp 14 02/09/20 09:07 BP 125/72 02/09/20 09:07 Pulse Ox 92 L 02/09/20 09:07 Intake & Output 02/08/20 02/09/20 02/09/20 18:59 06:59 18:59 Intake Total 0 310 Output Total 275 1700 Balance -275 -1390 Weight 81.647 kg Intake: Blood Product 0 310 Rc As-1 Unit 0 310 [id number] Output: Urine 275 1700 Uretheral (Boggs) 200 850 Other: Voiding Method Indwelling Catheter Indwelling Catheter Indwelling Catheter - Exam GENERAL EXAM: Alert, pleasant 79-year-old female patient, on 10 L high flow nasal cannula, comfortable in no apparent distress. HEAD: Normocephalic. EYES: Normal reaction of pupils, equal size. NOSE: Clear with pink turbinates. THROAT: No erythema or exudates. NECK: No masses, no JVD. CHEST: No chest wall deformity. LUNGS: Equal air entry with few scattered rhonchi with diminished CVS: S1 and S2 normal with no audible murmur, regular rhythm. ABDOMEN: No hepatosplenomegaly, normal bowel sounds, no guarding or rigidity. SPINE: No scoliosis or deformity SKIN: No rashes CENTRAL NERVOUS SYSTEM: No focal deficits, tone is normal in all 4 extremities. EXTREMITIES: Dressing the right hip dry and intact. There is no peripheral edema. No clubbing, no cyanosis. Peripheral pulses are intact. - Labs CBC & Chem 7: 02/09/20 05:22 02/09/20 05:22 Labs: Abnormal Lab Results - Last 24 Hours (Table) 02/08/20 02/09/20 02/09/20 Range/Units 12:28 05:22 05:22 WBC 17.5 H (3.8-10.6) k/uL RBC 2.67 L (3.80-5.40) m/uL Hgb 8.4 L (11.4-16.0) gm/dL Hct 27.4 L (34.0-46.0) % MCV 102.5 H (80.0-100.0) fL MCHC 30.5 L (31.0-37.0) g/dL RDW 17.8 H (11.5-15.5) % Lymphocytes # (Manual) 9.45 H (1.0-4.8) k/uL Metamyelocytes # (Man) 0.35 H (0) k/uL Myelocytes # (Manual) 0.53 H (0) k/uL Sodium 134 L (137-145) mmol/L Potassium 5.4 H (3.5-5.1) mmol/L Chloride 95 L (98-107) mmol/L BUN 85 H (7-17) mg/dL Creatinine 3.88 H (0.52-1.04) mg/dL Glucose 203 H (74-99) mg/dL Crossmatch See Detail Assessment and Plan Assessment: 1 With right hip fracture requiring right hip intramedullary screw fixation, postoperative day #4 2 Acute on chronic hypoxemic respiratory failure currently on 10 liters high flow nasal cannula, Dopplers of the lower extremity negative for DVT, VQ scan was low probability for PE 3 Advanced chronic obstructive pulmonary disease on home oxygen at 4 L 4 History of obstructive sleep apnea, declined CPAP therapy 5 Coronary artery disease with previous stent placement 6 CLL 7 Severe pulmonary hypertension 8 Acute on chronic kidney disease 9 History of chronic tobacco dependence 10 Hypothyroidism 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 Shoemaker Dopplers of lower extremity negative for DVT VQ scan with low probability for PE Continue DuoNeb inhalations 4 times a day Continue Pulmicort and Perforomist Continue prednisone 40 mg daily Continue empiric antibiotics Encourage the increased use of the incentive spirometer and cough and deep breathing exercises Titrate down the FiO2 as tolerated Increase her activity as tolerated We will continue to follow I, the cosigning physician, performed a history & physical examination of the pa tient. Lungs sounds few scattered rhonchi. Maintaining good O2 saturations in the 90s on 10 L high flow nasal cannula. I discussed the assessment and plan of care with my nurse practitioner, Caty Chaudhary. I attest to the above note as dictated by her.
[2020-02-09] MEDS: ATORVASTATIN 40 MG TAB PO SCH (20:58)
[2020-02-09] MEDS: SENNOSIDES-DOCUSATE SODIUM 1 EACH TAB PO SCH (20:58)
[2020-02-10] MEDS: ONDANSETRON 4 MG/2 ML VIAL IVP SCH ×3 (00:25→16:24)
[2020-02-10 05:25] LABS: Anisocytosis Slight; HGB 7.8 gm/dL (11.4-16.0); Hypochromasia Slight; MCH 32.7 pg (25.0-35.0); MCHC 32.3 g/dL (31.0-37.0); MCV 101.1 fL (80.0-100.0); Macrocytosis Slight; Mean Platelet Volume 8.2; Platelet Count 195 k/uL (150-450); RBC 2.37 m/uL (3.80-5.40); WBC 16.3 k/uL (3.8-10.6)
[2020-02-10 06:09] LABS: Lymphocytes # (M) 8.97 k/uL (1.0-4.8); Metamyelocytes # (M) 0.16 k/uL (0); Metamyelocytes % 1 %; Neutrophils # (M) 5.87 k/uL (1.3-7.7); Neutrophils % (M) 36 %; Nucleated Red Blood Cells 0 /100 WBC (0-0); Total Cells Counted 100
[2020-02-10] MEDS: BUDESONIDE 0.5 MG/2 ML NEBU INHALATION SCH (07:19)
[2020-02-10] MEDS: FORMOTEROL FUMARATE 20 MCG/2 ML NEBU INHALATION SCH (07:19)
[2020-02-10] MEDS: IPRATROPIUM-ALBUTEROL 3 ML NEB INHALATION SCH ×3 (07:19→15:32)
[2020-02-10] MEDS: MIDODRINE 5 MG TAB PO SCH ×3 (08:25→16:53)
[2020-02-10] MEDS: ASPIRIN 81 MG PO SCH ×2 (08:25→20:23)
[2020-02-10] MEDS: METOPROLOL TARTRATE 25 MG TAB PO SCH ×2 (08:25→20:17)
[2020-02-10] MEDS: LEVOTHYROXINE 100 MCG TAB PO SCH (08:26)
[2020-02-10] MEDS: predniSONE 20 MG TAB PO SCH (08:26)
[2020-02-10] MEDS: ESCITALOPRAM 10 MG TAB PO SCH (08:26)
[2020-02-10] MEDS: EZETIMIBE 10 MG TAB PO SCH (08:26)
[2020-02-10] MEDS: ISOSORBIDE MONONITRATE ER 60 MG TAB.ER.24H PO SCH (08:27)
[2020-02-10] MEDS: MULTIVITAMINS, THERA 1 EACH TAB PO SCH ×2 (08:27→13:14)
[2020-02-10] MEDS: PANTOPRAZOLE 40 MG TABLET PO SCH (08:27)
[2020-02-10] MEDS: SODIUM CHLORIDE 0.9% 1,000 ML IV SCH (08:28)
[2020-02-10] MEDS: Yupelri 175mcg/3ml 175 MCG INHALATION SCH (08:28)
--- NOTE | 2020-02-10 08:57 | XR ---
EXAMINATION TYPE: XR chest 1V DATE OF EXAM: 02/10/2020 CLINICAL HISTORY: Difficulty breathing progress study. TECHNIQUE: Single AP portable upright view of the chest is obtained. COMPARISON: Chest x-ray from 3 days earlier and older studies FINDINGS: Stable large bore right internal jugular dual-lumen dialysis catheter. Persistent cardiomegaly with atherosclerotic thoracic aorta. Background chronic parenchymal changes b ilaterally greatest in the bases with stable small to tiny right-sided pleural effusion and increasin g now small to moderate size left pleural effusion. Upper lungs remain clear without pneumothorax. Un derlying scoliotic curvature redemonstrated. IMPRESSION: Worsening [id number] left pleural effusion and associated left basilar atelectasis and/or infiltrate. Cardiomegaly and chronic changes with small to tiny right pleural effusion stable .
[2020-02-10 09:16] LABS: African American GFR (CKD) 12.4 (60.0-200.0); Anion Gap 13.6 mmol/L (4.00-12.00); BUN/Creat Ratio 24.21 Ratio (12.00-20.00); Calcium 9.1 mg/dL (8.7-10.3); Carbon Dioxide 29.4 mmol/L (21.6-31.8); Magnesium 2.1 mg/dL (1.5-2.4); Non-African American GFR(CKD) 10.7 (60.0-200.0); Potassium 4.8 mmol/L (3.5-5.5)
--- NOTE | 2020-02-10 10:17 | P.PN ---
Progress Note - Text Progress Note Date: 02/09/20 - Chief Complaint Left hip pain History of presenting complaint: This is a very pleasant 79-year-old patient of Dr. Steph Dooley. Chronic stable medical conditions include hyperlipidemia, hypertension, obstructive sleep apnea does not use a CPAP machine, hypothyroid, CLL, macular degeneration, coronary artery disease with stent/2007. Home oxygen 4-5 L. . Admitted on January 06 with unstable angina. Nitrates was added. PE was ruled out. Patient now tripped and fell falling on her right hip. Has a fracture. Is on home oxygen on 4 L. Patient's hemodialysis of been on hold for a few days. No chest pain or palpitation. Breathing is stable. No fever no chills. Otherwise at her baseline. No chest pain. February 04-underwent right hip IM hip screw fixation for the IT fracture. Oxygen requirement went up to 8 L. Be[address] followed by Dr. Shoemaker. Had a drop in hemoglobin. Blood being transfused. Today-laying in bed. Breathing better. Oral intake fair. No new issues. Had a VQ scan. Review of systems: Was done for constitutional, cardiovascular, GI, pulmonary. relevant finding as above Current medications reviewed in today's electronic records Physical examination: VITAL SIGNS: 97.9, 78, 18, 153 with 79, 95% on 10 L GENERAL: Laying in bed, nasal cannula, comfortable EYES: Pupils equal. Conjunctiva normal. NECK: JVD unable to assess masses not palpable. HEART: First and second heart sounds are normal; mild edema present LUNGS: Respiratory rate increased, decreased breath sounds ABDOMEN: Soft, nontender, liver spleen not palpable, no masses palpable. PSYCH: Alert and oriented x3; mood and affect normal. NEUROLOGICAL: Cranial nerves grossly intact; no facial asymmetry, power and sensation grossly intact. MUSCULAR skeletal: Evidence of OA. Limited range of motion on right hip. Investigations: February 07: White count 7.5 hemoglobin 8.4 potassium 5.4 BUN 85 creatinine 3.88 VQ scan-low probability February 06: Potassium 5.1 bun 79 creatinine 4.4 Doppler ultrasound lower extremities-negative for DVT. Chest w-feh-totniz fin dings February 05: White count 13.3 hemoglobin 7.2 potassium 5.4 bun 73 creatinine 4.4 White count 11.9 hemoglobin 8.2 platelets 139 potassium 4.0 bun 46 creatinine 2.40 EKG tracing personally reviewed by me-normal sinus rhythm, some flipped T waves in anterior leads Hip x-ray-ID fractured the right femur Chest x-ray film personally reviewed by me-, rotated some chronic changes 2-D echocardiogram [December 2019]-shows moderate concentric LVH and EF of 50-55% %, moderate to severe tricuspid regurgitation, severe pulmonary hypertension Assessment: -Mechanical fall leading to a right femur intertrochanteric fracture-IM hip screw fixation - COPD in an ex-smoker -Chronic congestive heart failure exacerbation from diastolic dysfunction EF 50- 55% % from underlying coronary artery disease -chronic hypoxic respiratory failure, on baseline 4 L oxygen at home -Acute hypoxic respiratory failure now on 8 L of nasal cannula. No DVT. PE unlikely given no probable 20 VQ scan. -Hyperkalemia from kidney failure -Moderate to severe tricuspid regurgitation, non-rheumatic -Secondary severe pulmonary hypertension -Essential hypertension -Diabetes mellitus II, -Hyperlipidemia -Hypothyroid -CLL -Chronic macular degeneration -Coronary artery disease with prior history of stent -Obesity BMI 32.6 -Chronic gait dysfunction uses a cane -Chronic kidney stage III -Acute kidney injury secondary to ATN secondary to cardiorenal syndrome. Recently taken off hemodialysis about 10 days ago due to recovery renal function.. -Depression not otherwise specified -Acute postprocedure blood loss anemia as expected from surgery. Patient getting blood transfusion Plan: FiO2 can be tapered down if it okay Dr. Dumont. Patient is mouth breathing. Kayexalate. Repeat labs. Discussed with patient. Thank you Dr. Angeles
--- NOTE | 2020-02-10 12:05 | CDI ---
Documentation Clarification Form Date: 02/10/2020 11:37:00 AM From: Raquel Resendez RN CCDS Admit Date: 02/03/2020 05:10:00 PM Patient Name: Amara Martinez Visit Number: [id number] Discharge Date: ATTENTION: The Clinical Documentation Specialists (CDI) and [facility] Coding Staff appreciate your assistance in clarifying documentation. Please respond to the clarification below the line at the bottom and electronically sign. The CDI & [facility] Coding staff will review the response and follow-up if needed. Please note: Queries are made part of the Legal Health Record. If you have any questions, please contact the author of this message via ITS. Dr. Al Angeles Right Posterior Heel Pressure ulcer, with no open wounds is documented in the 02/07 and 02/08 Ortho progress notes History/Risk Factors: 79-year-old female presents to the ED after a witnessed fall at home on her right hip. Admitted with Right Intertrochanteric femur fracture. Clinical Indicators: Medical History: HTN; Sleep Apnea/CPAP; COPD and Renal disease 02/08 Ortho Progress note: There is pressure ulcer at the posterior right heel, with no open wounds. 02/06 Nursing Assessment: Location Right Heel: Stage 2; Distinct wound margins; Hospital Acquired 02/09 Nursing Assessment: Location Right Heel: Stage 1; Present On admission Treatment: 02/06: Heel elevated, protection boot Elements for accurate and compliant documentation of an ulcer: *The location/laterality of the ulcer *Etiology (decubitus/pressure, diabetic, PVD) *Stage I-IV, Unstageable, Suspected Deep Tissue Injury (To the deepest stage) *If the ulcer was present at admission (POA) or occurred after admission In your professional opinion, can you please clarify the diagnosis, location, laterality and whether present on admission (POA): Stage 1 Pressure/Decubitus Ulcer (intact skin, non-blanching redness of local area) Stage 2 Pressure/Decubitus Ulcer (Partial thickness, loss of dermis, pink wound bed) muscle. May have slough or eschar present) Unstageable Other condition, please specify Unable to determine Please indicate etiology of pressure ulcer (if known). (Last Revision: December 2016) It is a stage I Pressure Ulcer, occurred after admission, located as mentioned in notes on her posterior right heel MTDD
--- NOTE | 2020-02-10 12:37 | P.PN ---
Subjective Progress Note Date: 02/10/20 On 02/10/2020, the patient is doing well. She has no specific complaints. She is sitting up on a chair. She is recovering from surgery. She is postop day #6. No major respiratory distress. Oxygen levels improved and the patient is currently on 7 L oxygen by nasal cannula. No chest pain. No significant shortness of breath. I suspect she overload at this point in time. Hemoglobin is 7.8. The patient still has a dialysis catheter in place. Nevertheless she has not received any dialysis. Her last bout of dialysis was more than 10 days ago and creatinine is at 3.8. She is using incentive spirometer pulling approximately 1000. She also received a total of 2 units of packed during this current hospital stay. Objective - Vital Signs Vital signs: Vital Signs Temp 97.9 F 02/10/20 09:00 Pulse 84 02/10/20 11:43 Resp 18 02/10/20 09:00 BP 145/67 02/10/20 09:00 Pulse Ox 96 02/10/20 09:00 Intake & Output 02/09/20 02/10/20 02/10/20 18:59 06:59 18:59 Intake Total 200 240 Output Total 350 475 Balance -150 -235 Intake: Oral 240 Other 200 Output: Urine 350 475 Uretheral (Boggs) 350 Other: Voiding Method Indwelling Catheter Indwelling Catheter - Exam GENERAL EXAM: Alert, pleasant 79-year-old female patient, on 7 L high flow nasal cannula, comfortable in no apparent distress. HEAD: Normocephalic. EYES: Normal reaction of pupils, equal size. NOSE: Clear with pink turbinates. THROAT: No erythema or exudates. NECK: No masses, no JVD. CHEST: No chest wall deformity. LUNGS: Equal air entry with few scattered rhonchi with diminished CVS: S1 and S2 normal with no audible murmur, regular rhythm. ABDOMEN: No hepatosplenomegaly, normal bowel sounds, no guarding or rigidity. SPINE: No scoliosis or deformity SKIN: No rashes CENTRAL NERVOUS SYSTEM: No focal deficits, tone is normal in all 4 extremities. EXTREMITIES: Dressing the right hip dry and intact. There is no peripheral edema. No clubbing, no cyanosis. Peripheral pulses are intact.the patient on has a surgical site over the right hip area which is dry clean and intact. - Labs CBC & Chem 7: 02/10/20 05:08 02/10/20 05:08 Labs: Abnormal Lab Results - Last 24 Hours (Table) 02/09/20 02/10/20 02/10/20 Range/Units 16:31 05:08 05:08 WBC 16.3 H (3.8-10.6) k/uL RBC 2.37 L (3.80-5.40) m/uL Hgb 7.8 L (11.4-16.0) gm/dL Hct 24.0 L (34.0-46.0) % MCV 101.1 H (80.0-100.0) fL RDW 17.0 H (11.5-15.5) % Lymphocytes # (Manual) 8.97 H (1.0-4.8) k/uL Monocytes # (Manual) 1.30 H (0-1.0) k/uL Metamyelocytes # (Man) 0.16 H (0) k/uL Potassium 5.4 H (3.5-5.1) mmol/L Chloride 95 L (96-109) mmol/L Anion Gap 13.60 H (4.00-12.00) mmol/L BUN 92.0 H (9.0-27.0) mg/dL Creatinine 3.8 H (0.6-1.5) mg/dL Est GFR (CKD-EPI)AfAm 12.4 L (60.0-200.0) Est GFR (CKD-EPI)NonAf 10.7 L (60.0-200.0) BUN/Creatinine Ratio 24.21 H (12.00-20.00) Ratio Glucose 306 H (70-110) mg/dL Assessment and Plan Plan: 1 right hip fracture requiring right hip intramedullary screw fixation, postoperative day #5 2 Acute on chronic hypoxemic respiratory failure currently on 7 liters high flow nasal cannula, Dopplers of the lower extremity negative for DVT, VQ scan was low probability for PE 3 Advanced chronic obstructive pulmonary disease on home oxygen at 4 L 4 History of obstructive sleep apnea, declined CPAP therapy 5 Coronary artery disease with previous stent placement 6 CLL 7 Severe pulmonary hypertension 8 Acute on chronic kidney disease 9 History of chronic tobacco dependence 10 Hypothyroidism 11 Hemoglobin, globulin anemia 12 Hypertension 13 macular degeneration Plan: Dopplers of lower extremity negative for DVT VQ scan with low probability for PE Continue DuoNeb inhalations 4 times a day Continue Pulmicort and Perforomist Continue prednisone 40 mg daily discontinue the Zithromax Encourage the increased use of the incentive spirometer and cough and deep breathing exercises Titrate down the FiO2 as tolerated Increase her activity as tolerated We will continue to follow
--- NOTE | 2020-02-10 12:42 | CDI ---
Documentation Clarification Form Date: 02/10/2020 12:05:56 PM From: Raquel Resendez RN CCDS Admit Date: 02/03/2020 05:10:00 PM Patient Name: Amara Martinez Visit Number: [id number] Discharge Date: ATTENTION: The Clinical Documentation Specialists (CDI) and [facility] Coding Staff appreciate your assistance in clarifying documentation. Please respond to the clarification below the line at the bottom and electronically sign. The CDI & [facility] Coding staff will review the response and follow-up if needed. Please note: Queries are made part of the Legal Health Record. If you have any questions, please contact the author of this message via ITS. Dr. Al Angeles Acute hypoxic respiratory failure is documented in the Internal Medicine Progress Note 02/06 Through 02/08. Patients Admitting Diagnosis: Right Hip Fracture Post-Operative Diagnosis: Right Hip four-part intertrochanteric hip fracture Procedure performed: Right Hip intramedullary hip screw fixation History/Risk Factors: 79-year-old female presents to the ED after a fall with right hip fracture. Clinical Indicators: 02/05 VSS B/P 104/55; HR 96; Temp 98.5 F Oral; RR 22; SpO2 89% High Flow Nasal Cannula 02/09 RR 18; SpO2 95% 10L High Flow Nasal Cannula Medical History: Advanced COPD on 4L home oxygen, Severe sleep apnea does not use a CPAP machine, Chronic respiratory failure 4-5L nasal cannula at home and prior history of smoking 02/02 CXR mild infiltrate left costophrenic angle. Correlate for atelectasis 02/03 Pulmonary Consult: Advanced COPD 4L home oxygen regular basis; History of severe MADAY and previously declined CPAP therapy. Treatment: 02/02 Ventolin PRN d/c 02/07; 02/07 Duoneb QID JACK; 02/03 Pulmicort BID; 10 L High Flow Oxygen; 02/03 Yupelri Inhalation Daily d/c 02/09 Consults: Pulmonology 02/03 see above In order to accurately reflect this patients severity of illness, please clarify if the Acute Respiratory Failure: -is a complication of surgical procedure -is an expected outcome of the surgical procedure -is related to co-morbid condition(s) of please specify -Other please specify -Unable to determine Please query medical service to clarify this. (Last Revision: April 2019) DAPHNE
--- NOTE | 2020-02-10 14:22 | P.PN ---
Subjective Progress Note Date: 02/10/20 Principal diagnosis: Right hip fracture Patient is seen at bedside this morning. She is postop day #5 from Gamma nail for right IT fracture. Her pain at the surgical site is improved and controlled. She has had issues with pleural effusion and fluid overload the past few days but has stabilized. She denies any new complaints. She denies numbness, tingling or calf pain. Review of systems is negative for fever, chills, chest pain, shortness of breath or other Objective - Vital Signs Vital signs: Vital Signs Temp 98.2 F 02/10/20 12:34 Pulse 77 02/10/20 12:34 Resp 17 02/10/20 12:34 BP 145/66 02/10/20 12:34 Pulse Ox 96 02/10/20 12:34 Intake & Output 02/09/20 02/10/20 02/10/20 18:59 06:59 18:59 Intake Total 200 240 Output Total 350 475 Balance -150 -235 Intake: Oral 240 Other 200 Output: Urine 350 475 Uretheral (Boggs) 350 Other: Voiding Method Indwelling Catheter Indwelling Catheter - Exam Inspection reveals benign surgical wounds. There is no active bleeding or drainage. Neurovascular status is intact throughout the lower extremity with motor and sensation fully intact. Calf is soft and nontender. 2+ dorsalis pedis pulse and less than 2 second cap refill is present. there is a pressure type injury at the back of the heel that is not open. She is currently in boot for protection - Constitutional General appearance: Present: no acute distress - Labs CBC & Chem 7: 02/10/20 05:08 02/10/20 05:08 Labs: Abnormal Lab Results - Last 24 Hours (Table) 02/09/20 02/10/20 02/10/20 Range/Units 16:31 05:08 05:08 WBC 16.3 H (3.8-10.6) k/uL RBC 2.37 L (3.80-5.40) m/uL Hgb 7.8 L (11.4-16.0) gm/dL Hct 24.0 L (34.0-46.0) % MCV 101.1 H (80.0-100.0) fL RDW 17.0 H (11.5-15.5) % Lymphocytes # (Manual) 8.97 H (1.0-4.8) k/uL Monocytes # (Manual) 1.30 H (0-1.0) k/uL Metamyelocytes # (Man) 0.16 H (0) k/uL Potassium 5.4 H (3.5-5.1) mmol/L Chloride 95 L (96-109) mmol/L Anion Gap 13.60 H (4.00-12.00) mmol/L BUN 92.0 H (9.0-27.0) mg/dL Creatinine 3.8 H (0.6-1.5) mg/dL Est GFR (CKD-EPI)AfAm 12.4 L (60.0-200.0) Est GFR (CKD-EPI)NonAf 10.7 L (60.0-200.0) BUN/Creatinine Ratio 24.21 H (12.00-20.00) Ratio Glucose 306 H (70-110) mg/dL Assessment and Plan (1) Fracture, intertrochanteric, right femur Narrative/Plan: She will continue with routine postop orthopedic protocol including pain management, wound care, PT, DVT prophylaxis and medical management. Continue strict nonweightbearing right leg. Continue monitor right heel and protect. She does not want to go to an ECF and states that she has family that will be taking her in, however, Dr. Angeles has strongly recommended she transfer to ECF due to risk of reinjury. Will request assistance from Social work. She may discharge when okay with internal medicine pulmonology. Expect discharge in next 1-2 days Current Visit: Yes Status: Acute Priority: Medium Code(s): S72.141A - DISPLACED INTERTROCHANTERIC FRACTURE OF RIGHT FEMUR, INIT SNOMED Code(s): 774811055 Time with Patient: Less than 30
--- NOTE | 2020-02-10 16:32 | PN ---
PROGRESS NOTE Patient is seen for followup for chronic kidney disease and acute kidney injury. Patient had been on hemodialysis for the acute kidney injury and was recently taken off of dialysis. She was admitted with a creatinine of about 4.4 and now it is staying at about 3.8 mg/dL. The patient states overall she is feeling better. Her oral intake has improved. She denies any chest pains or shortness of breath. Patient remains on high-flow oxygen at about 8 L. Urine output documented for 24 hours at 1.9 L. The patient has an indwelling Boggs catheter. PHYSICAL EXAMINATION: On examination today, blood pressure was 145/67, heart rate 80 per minute. Patient is afebrile. EXAMINATION OF THE HEART: S1 and S2. EXAMINATION OF LUNGS: Bilateral breath sounds are heard. ABDOMEN: Soft, obese, non-tender. Examination of lower extremities shows edema 1+ bilaterally. CENTRAL CONTROL ROOM OPERATOR exam LABS: Labs show hemoglobin 7.8 g/dL, white cell count 16.3, sodium 138, potassium 4.8, serum creatinine 2.8, BUN 92, calcium 9.1 mg/dL. ASSESSMENT: 1. Acute kidney injury, acute tubular necrosis, associated with hypotension and anemia, currently improved. Renal function stable for the last couple of days. Continue to maintain patient off of dialysis. 2. Chronic diastolic congestive heart failure with tricuspid regurgitation, severe pulmonary hypertension. 3. Chronic kidney disease, stage 3, baseline creatinine 1 to 1.5 mg/dL, with development of acute kidney injury and hemodialysis-dependent renal failure, currently off of dialysis. UA has been benign. 4. Anemia of chronic disease with iron deficiency, status post IV iron. 5. Acute blood loss anemia, status post surgery, status post packed RBCs transfusion. 6. Mild hyperkalemia associated with acute kidney injury, hyperglycemia. PLAN: Continue to hold off on dialysis. Continue off of IV fluids. Encourage increased oral intake. Repeat labs in a.m. Avoid nephrotoxic medications. MMODL / IJN: [id number] /
[2020-02-10] MEDS: ATORVASTATIN 40 MG TAB PO SCH (20:17)
[2020-02-10] MEDS: SENNOSIDES-DOCUSATE SODIUM 1 EACH TAB PO SCH (20:17)
[2020-02-11] MEDS: BUDESONIDE 0.5 MG/2 ML NEBU INHALATION SCH ×3 (02:37→07:40)
[2020-02-11] MEDS: FORMOTEROL FUMARATE 20 MCG/2 ML NEBU INHALATION SCH ×3 (02:37→07:40)
[2020-02-11] MEDS: IPRATROPIUM-ALBUTEROL 3 ML NEB INHALATION SCH ×5 (02:37→15:01)
[2020-02-11] MEDS: ONDANSETRON 4 MG/2 ML VIAL IVP SCH ×3 (02:38→16:18)
[2020-02-11] MEDS: SODIUM CHLORIDE 0.9% 1,000 ML IV SCH (04:32)
[2020-02-11] MEDS: LEVOTHYROXINE 100 MCG TAB PO SCH (05:45)
--- NOTE | 2020-02-11 08:53 | CDI ---
Documentation Clarification Form Date: 02/11/2020 08:37:39 AM From: Raquel Resendez RN CCDS Admit Date: 02/03/2020 05:10:00 PM Patient Name: Amara Martinez Visit Number: [id number] Discharge Date: ATTENTION: The Clinical Documentation Specialists (CDI) and [facility] Coding Staff appreciate your assistance in clarifying documentation. Please respond to the clarification below the line at the bottom and electronically sign. The CDI & [facility] Coding staff will review the response and follow-up if needed. Please note: Queries are made part of the Legal Health Record. If you have any questions, please contact the author of this message via ITS. Dr. Gail Rousseau Conflicting documentation has been found in the medical record: Chronic Kidney disease stage III is documented in the Nephrology Consult 02/03 and through Progress notes 02/09 Chronic Kidney disease stage IV is documented in Nephrology Query 02/05 History/Risk Factors: 79-Year-old presents to the ED after a trip and fall on her left hip. Medical History: HLD; HTN; MADAY; CLL; CAD, Chronic Respiratory Failure and Kidney Disease. Admitted with Right Intertrochanteric Fracture. Clinical Indicators: BUN: 02/05 73.00; 12/08 150; 11/05 49; 10/01 64 CR: 02/05 4.4; 12/08 5.72; 11/05 3.83; 10/01 1.60 GFR: 02/05 8.9; 12/08 7; 11/05 11; 10/01 31 02/09 Nephrology progress note: Chronic kidney disease, stage 3, baseline creatinine 1 to 1.5mg/dl, with development of acute kidney injury and hemodialysis dependent renal failure currently off of dialysis. Treatment: Maintain Demadex; monitor renal function and urine output; Check Iron studies: 02/05 Ferric Sodium Gluconate Ivpb; 02/03 Daily Aranesp 40mcg SQ Q 7D; Hold off of Dialysis, hold IV fluids. Encourage oral fluids. In your opinion, what is the most clinically appropriate diagnosis for this patient? CKD III CKD IV Other explanation of clinical findings Unable to determine (no explanation for clinical findings) CKD stage 4 (Last Revision: June 2017) MTDD
[2020-02-11] MEDS: ACETAMINOPHEN TAB 325 MG TAB PO PRN (09:09)
[2020-02-11] MEDS: ASPIRIN 81 MG PO SCH (09:09)
[2020-02-11] MEDS: MIDODRINE 5 MG TAB PO SCH ×3 (09:09→18:00)
[2020-02-11] MEDS: EZETIMIBE 10 MG TAB PO SCH (09:09)
[2020-02-11] MEDS: ISOSORBIDE MONONITRATE ER 60 MG TAB.ER.24H PO SCH (09:09)
[2020-02-11] MEDS: ESCITALOPRAM 10 MG TAB PO SCH (09:09)
[2020-02-11] MEDS: predniSONE 20 MG TAB PO SCH (09:09)
[2020-02-11] MEDS: PANTOPRAZOLE 40 MG TABLET PO SCH (09:09)
[2020-02-11] MEDS: METOPROLOL TARTRATE 25 MG TAB PO SCH (09:09)
[2020-02-11] MEDS: Yupelri 175mcg/3ml 175 MCG INHALATION SCH (09:10)
[2020-02-11] MEDS: MULTIVITAMINS, THERA 1 EACH TAB PO SCH ×2 (09:11→13:26)
--- NOTE | 2020-02-11 10:51 | P.PN ---
Progress Note - Text Progress Note Date: 02/10/20 - Chief Complaint Left hip pain History of presenting complaint: This is a very pleasant 79-year-old patient of Dr. Steph Dooley. Chronic stable medical conditions include hyperlipidemia, hypertension, obstructive sleep apnea does not use a CPAP machine, hypothyroid, CLL, macular degeneration, coronary artery disease with stent/2008. Home oxygen 4-5 L. . Admitted on January 06 with unstable angina. Nitrates was added. PE was ruled out. Patient now tripped and fell falling on her right hip. Has a fracture. Is on home oxygen on 4 L. Patient's hemodialysis of been on hold for a few days. No chest pain or palpitation. Breathing is stable. No fever no chills. Otherwise at her baseline. No chest pain. February 04-underwent right hip IM hip screw fixation for the IT fracture. Oxygen requirement went up to [address] L[address] followed by Dr[address] Shoemaker. Had a drop in hemoglobin. Blood being transfused. PE ruled out. DVT ruled out. Today-laying in bed. Comfortable. Requiring high flow oxygen. Rather comfortable at rest. Oral intake fair. Pain control. Review of systems: Was done for constitutional, cardiovascular, GI, pulmonary. relevant finding as above Current medications reviewed in today's electronic records Physical examination: VITAL SIGNS: 98.2, 77, 145/66 , 96% on 8 L GENERAL: Laying in bed, nasal cannula,-8 L comfortable EYES: Pupils equal. Conjunctiva normal. NECK: JVD unable to assess masses not palpable. HEART: First and second heart sounds are normal; mild edema present LUNGS: Respiratory rate increased, decreased breath sounds ABDOMEN: Soft, nontender, liver spleen not palpable, no masses palpable. PSYCH: Alert and oriented x3; mood and affect normal. NEUROLOGICAL: Cranial nerves grossly intact; no facial asymmetry, power and sensation grossly intact. MUSCULAR skeletal: Evidence of OA. Limited range of motion on right hip. Investigations: February 09: White count 16.3 hemoglobin 7.8 potassium 4.8 creatinine 3.8 February 07: White count 7.5 hemoglobin 8.4 potassium 5.4 BUN 85 creatinine 3.88 VQ scan-low probability February 06: Potassium 5.1 bun 79 creatinine 4.4 Doppler ultrasound lower extremities-negative for DVT. Chest q-qpj-ttitvl findings February 05: White count 13.3 hemoglobin 7.2 potassium 5.4 bun 73 creatinine 4.4 White count 11.9 hemoglobin 8.2 platelets 139 potassium 4.0 bun 46 creatinine 2.40 EKG tracing personally reviewed by me-normal sinus rhythm, some flipped T waves in anterior leads Hip x-ray-ID fractured the right femur Chest x-ray film personally reviewed by me-, rotated some chronic changes 2-D echocardiogram [December 2019]-shows moderate concentric LVH and EF of 50-55% %, moderate to severe tricuspid regurgitation, severe pulmonary hypertension Assessment: -Mechanical fall leading to a right femur intertrochanteric fracture-IM hip screw fixation - COPD in an ex-smoker -Chronic congestive heart failure exacerbation from diastolic dysfunction EF 50- 55% % from underlying coronary artery disease -chronic hypoxic respiratory failure, on baseline 4 L oxygen at home -Acute hypoxic respiratory failure now on 8 L of nasal cannula. No DVT. PE unlikely given no probable 20 VQ scan. -Hyperkalemia from kidney failure -Moderate to severe tricuspid regurgitation, non-rheumatic -Secondary severe pulmonary hypertension -Essential hypertension -Diabetes mellitus II, -Hyperlipidemia -Hypothyroid -CLL -Chronic macular degeneration -Coronary artery disease with prior history of stent -Obesity BMI 32.6 -Chronic gait dysfunction uses a cane -Chronic kidney stage III -Acute kidney injury secondary to ATN secondary to cardiorenal syndrome. Recently taken off hemodialysis about 10 days ago due to recovery renal function.. -Depression not otherwise specified -Acute postprocedure blood loss anemia as expected from surgery. Patient getting blood transfusion Plan: Continue current medication treatment plan. Patient encouraged to use incentive spirometry. Sitting up in the bed. Other medications to continue. Thank you Dr. Angeles
--- NOTE | 2020-02-11 12:04 | P.PN ---
Subjective Progress Note Date: 02/11/20 On 02/10/2020, the patient is doing well. She has no specific complaints. She is sitting up on a chair. She is recovering from surgery. She is postop day #6. No major respiratory distress. Oxygen levels improved and the patient is currently on 7 L oxygen by nasal cannula. No chest pain. No significant shortness of breath. I suspect she overload at this point in time. Hemoglobin is 7.8. The patient still has a dialysis catheter in place. Nevertheless she has not received any dialysis. Her last bout of dialysis was more than 10 days ago and creatinine is at 3.8. She is using incentive spirometer pulling approximately 1000. She also received a total of 2 units of packed during this current hospital stay. On 02/11/2020, the patient is postop day #6. The patient is doing well. No sp ecific complaints. Hemoglobin is at 7.8 which is stable, slightly lower compared to yesterday. With episodes of 16.3. In terms of renal function, the patient is producing urine output. Creatinine is stable at 3.8 which is the same as yesterday. The BUN is at 92. Serum bicarb is 29.4. No additional pain control. The patient is currently on a prednisone burst taper from 40 mg. Patient is currently on 4 L of oxygen by nasal cannula with a pulse of 93%. Objective - Vital Signs Vital signs: Vital Signs Temp 97.4 F L 02/11/20 08:44 Pulse 80 02/11/20 10:53 Resp 22 02/11/20 08:44 BP 147/56 02/11/20 08:44 Pulse Ox 93 L 02/11/20 08:44 Intake & Output 02/10/20 02/11/20 02/11/20 18:59 06:59 18:59 Intake Total 600 Output Total 700 700 Balance -700 -100 Intake: Intake, IV Titration 240 Amount Sodium Chloride 0.9% 1, 240 000 ml @ 20 mls/hr IV . Q24H JACK Rx#:[id number] Oral 360 Output: Urine 700 700 Other: Voiding Method Indwelling Catheter Indwelling Catheter # Bowel Movements 0 - Exam GENERAL EXAM: Alert, pleasant 79-year-old female patient, on 4 L high flow nasal cannula, comfortable in no apparent distress. HEAD: Normocephalic. EYES: Normal reaction of pupils, equal size. NOSE: Clear with pink turbinates. THROAT: No erythema or exudates. NECK: No masses, no JVD. CHEST: No chest wall deformity. LUNGS: Equal air entry with few scattered rhonchi with diminished CVS: S1 and S2 normal with no audible murmur, regular rhythm. ABDOMEN: No hepatosplenomegaly, normal bowel sounds, no guarding or rigidity. SPINE: No scoliosis or deformity SKIN: No rashes CENTRAL NERVOUS SYSTEM: No focal deficits, tone is normal in all 4 extremities. EXTREMITIES: Dressing the right hip dry and intact. There is no peripheral edema. No clubbing, no cyanosis. Peripheral pulses are intact.the patient on has a surgical site over the right hip area which is dry clean and intact. - Labs CBC & Chem 7: 02/10/20 05:08 02/10/20 05:08 Assessment and Plan Plan: 1 right hip fracture requiring right hip intramedullary screw fixation, postoperative day #6 2 Acute on chronic hypoxemic respiratory failure , Dopplers of the lower extremity negative for DVT, VQ scan was low probability for PEthe patient is oxidation is improved and the patient is currently down to 4 L of oxygen by nasal cannula which is her baseline. 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 The patient is currently down to 4 L of oxygen by nasal cannula. She had a Dopplers of lower extremity negative for DVT and the VQ scan with low probability for PE Continue DuoNeb inhalations 4 times a day Continue Pulmicort and Perforomist Continue prednisone 40 mg daily, as part of burst taper Encourage the increased use of the incentive spirometer and cough and deep breathing exercises Increase her activity as tolerated We will continue to follow
[2020-02-11 12:15] LABS: Anisocytosis Slight; HCT 27.8 % (34.0-46.0); HGB 8.6 gm/dL (11.4-16.0); Hypochromasia Marked; MCHC 30.9 g/dL (31.0-37.0); MCV 103.7 fL (80.0-100.0); Macrocytosis Moderate; Mean Platelet Volume 7.9; Platelet Count 261 k/uL (150-450); RBC 2.68 m/uL (3.80-5.40); RDW 16.6 % (11.5-15.5); WBC 20.8 k/uL (3.8-10.6)
[2020-02-11 12:31] LABS: African American GFR (CKD) 17 (>60 ml/min/1.73 sqM); Anion Gap 10 mmol/L; Blood Urea Nitrogen 95 mg/dL (7-17); Calcium 9.2 mg/dL (8.4-10.2); Carbon Dioxide 29 mmol/L (22-30); Chloride 97 mmol/L (98-107); Glucose 221 mg/dL (74-99); Non-African American GFR(CKD) 15 (>60 ml/min/1.73 sqM); Sodium 136 mmol/L (137-145)
[2020-02-11 12:49] LABS: Lymphocytes # (M) 13.73 k/uL (1.0-4.8); Metamyelocytes # (M) 0.21 k/uL (0); Metamyelocytes % 1 %; Monocytes # (M) 0.83 k/uL (0-1.0); Myelocytes # (M) 0.42 k/uL (0); Myelocytes % 2 %; Neutrophils # (M) 6.03 k/uL (1.3-7.7); Neutrophils % (M) 29 %; Nucleated Red Blood Cells 0 /100 WBC (0-0); Total Cells Counted 200
--- NOTE | 2020-02-11 13:14 | P.DS ---
Providers Date of admission: 02/03/20 17:10 Expected date of discharge: 02/11/20 Attending physician: Al Angeles Consults: 02/03/20 17:08 Consult Physician Urgent Consulting Provider: Shekhar Gold Consult Reason/Comments: Surgical clearance Do you want consulting provider notified?: Yes 02/04/20 11:27 Consult Physician Routine Consulting Provider: Otoniel Shoemaker Consult Reason/Comments: clearance for surgery Do you want consulting provider notified?: Yes 02/04/20 11:29 Consult Physician Routine Consulting Provider: Gail Rousseau Consult Reason/Comments: hemodialysis Do you want consulting provider notified?: Yes Primary care physician: Radha Dooley - Discharge Diagnosis(es) (1) Fracture, intertrochanteric, right femur Patient was admitted to the OR on 02/05/2020 to undergo Gamma nail with IM hip screw for right IT hip fracture. She desired to proceed with elective surgery after given informed consent. She underwent the above procedure which she tolerated well without complication. Postoperative hospital course has remained without complication with the exception of some hypoxemia secondary to pleural effusion/fluid overload which has improved and stabilized. She also has a stage I pressure sore on right heel that has remained stable with air boot. On day of discharge she is afebrile, vital signs stable, labs within acceptable ranges, tolerating by mouth meds and diet, voiding without difficulty, positive flatus, denies abdominal pain or calf pain, pain is controlled on oral pain medication and has no new complaints. Wound is benign, neurovascular status is intact, calf is soft and nontender, abdomen soft and nontender. Review of systems is negative for numbness, tingling, fever, chills, chest pain, shortness of breath, nausea, vomiting, dizziness, headaches, slurred speech or other. Current Visit: Yes Status: Acute Priority: Medium Patient Condition at Discharge: Fair Plan - Discharge Summary Discharge Rx Participant: Yes New Discharge Prescriptions: New Aspirin [Adult Low Dose Aspirin EC] 81 mg PO BID #60 tablet. HYDROcodone/APAP 5-325MG [[place] 5-325] 1 tab PO Q4HR PRN #42 tab PRN Reason: Pain No Action Arformoterol Tartrate [Brovana] 15 mcg INHALATION RT-BID Aspirin EC [Ecotrin Low Dose] 81 mg PO DAILY Levothyroxine Sodium [Synthroid] 100 mcg PO DAILY Multivitamins, Thera [Multivitamin (formulary)] 1 tab PO DAILY Nitroglycerin Sl Tabs [Nitrostat] 0.4 mg SUBLINGUAL Q5M PRN PRN Reason: Chest Pain Omeprazole [PriLOSEC] 20 mg PO DAILY Vit C/E/Zn/Coppr/Lutein/Zeaxan [Preservision Areds 2 Softgel] 1 cap PO BID Yupelri 175mcg/3ml 175 mcg INHALATION RT-DAILY Atorvastatin [Lipitor] 40 mg PO HS Budesonide [Pulmicort] 0.5 mg INHALATION RT-BID Ezetimibe [Zetia] 10 mg PO DAILY Levothyroxine Sodium [Synthroid] 50 mcg PO PADILLA Clopidogrel [Plavix] 75 mg PO DAILY #30 tab Promethaz-Cod 6.25-10 mg/5 ml [Phenergan with Codeine] 5 ml PO Q6HR PRN PRN Reason: Cough Albuterol Inhaler [Ventolin Hfa Inhaler] 2 puff INHALATION RT-QID PRN PRN Reason: Shortness Of Breath Torsemide [Demadex] 40 mg PO DAILY #30 tab Escitalopram [Lexapro] 10 mg PO DAILY #10 tab Loratadine [Claritin] 10 mg PO DAILY PRN PRN Reason: Allergy Symptoms Metoprolol Tartrate [Lopressor] 25 mg PO BID #0 tab polyethylene glycoL 3350 [Miralax] 17 gm PO HS PRN powd.pack PRN Reason: Constipation LORazepam [Ativan] 0.5 mg PO BID PRN #10 tab PRN Reason: Anxiety Isosorbide Mononitrate ER [Imdur] 60 mg PO DAILY #60 tab.er.24h Discharge Medication List Arformoterol Tartrate [Brovana] 15 mcg INHALATION RT-BID 10/03/16 [History] Aspirin EC [Ecotrin Low Dose] 81 mg PO DAILY 10/03/16 [History] Levothyroxine Sodium [Synthroid] 100 mcg PO DAILY 10/03/16 [History] Multivitamins, Thera [Multivitamin (formulary)] 1 tab PO DAILY 10/03/16 [History] Nitroglycerin Sl Tabs [Nitrostat] 0.4 mg SUBLINGUAL Q5M PRN 10/03/16 [History] Omeprazole [PriLOSEC] 20 mg PO DAILY 10/03/16 [History] Vit C/E/Zn/Coppr/Lutein/Zeaxan [Preservision Areds 2 Softgel] 1 cap PO BID 10/03/16 [History] Atorvastatin [Lipitor] 40 mg PO HS 05/09/19 [History] Budesonide [Pulmicort] 0.5 mg INHALATION RT-BID 05/09/19 [History] Ezetimibe [Zetia] 10 mg PO DAILY 05/09/19 [History] Levothyroxine Sodium [Synthroid] 50 mcg PO PADILLA 05/09/19 [History] Yupelri 175mcg/3ml 175 mcg INHALATION RT-DAILY 05/09/19 [History] Clopidogrel [Plavix] 75 mg PO DAILY #30 tab 05/11/19 [Rx] Albuterol Inhaler [Ventolin Hfa Inhaler] 2 puff INHALATION RT-QID PRN 10/02/19 [History] Promethaz-Cod 6.25-10 mg/5 ml [Phenergan with Codeine] 5 ml PO Q6HR PRN 10/02/19 [History] Escitalopram [Lexapro] 10 mg PO DAILY #10 tab 10/06/19 [Rx] Torsemide [Demadex] 40 mg PO DAILY #30 tab 10/06/19 [Rx] Loratadine [Claritin] 10 mg PO DAILY PRN 12/09/19 [History] LORazepam [Ativan] 0.5 mg PO BID PRN #10 tab 12/18/19 [Rx] Metoprolol Tartrate [Lopressor] 25 mg PO BID #0 tab 12/18/19 [Rx] polyethylene glycoL 3350 [Miralax] 17 gm PO HS PRN powd.pack 12/18/19 [Rx] Isosorbide Mononitrate ER [Imdur] 60 mg PO DAILY #60 tab.er.24h 01/10/20 [Rx] Aspirin [Adult Low Dose Aspirin EC] 81 mg PO BID #60 tablet.dr 02/07/20 [Rx] HYDROcodone/APAP 5-325MG [[place] 5-325] 1 tab PO Q4HR PRN #42 tab 02/07/20 [Rx] Follow up Appointment(s)/Referral(s): Radha Dooley MD [Primary Care Provider] - 1-2 days Al Angeles MD [STAFF PHYSICIAN] - 10 Days Activity/Diet/Wound Care/Special Instructions: [facility]: #[phone] Keep wound clean and dry Take meds as directed Follow-up with Dr. Angeles in office Strict non-weight bearing with walker at all times May shower in 3 days if no bleeding Mary out at or around PO day #12, 02/17/20 Discharge Disposition: TRANSFER TO SNF/ECF
[2020-02-11] MEDS: DARBEPOETIN ALFA 40 MCG/0.4 ML SYRINGE SQ SCH (13:48)
[2020-02-11 14:34] VITALS: BP 115/61; RESP 20; TEMP 97.6
[2020-02-11 15:05] VITALS: PULSE 84
[2020-02-11] MEDS ORDERED: LIDOCAINE 1% INJ 10MG/ML (20 ML MDV) SQ ONE (16:23)
--- NOTE | 2020-02-11 17:19 | PCN ---
PROCEDURE NOTE DIAGNOSIS: Acute renal failure. PROCEDURE: Removal of the dialysis catheter, right jugular approach. Patient was seen, right side of the neck and chest was prepped and draped in a sterile manner. 1% lidocaine was infiltrated. A small incision made at the exit site of the catheter. Catheter was removed. A 5-0 nylon stitch was placed. Dressing applied. Patient tolerated the procedure well. MMODL / IJN: [id number] /
--- NOTE | 2020-02-11 18:25 | PN ---
PROGRESS NOTE Patient is seen for followup for chronic kidney disease and acute kidney injury. Currently patient is sitting up. She is comfortable. She denies any significant complaints. Her serum creatinine continues to improve. It is down to 2.9 today. Patient has good urine output. She has not had dialysis for some time now. I will discontinue the PermCath prior to her discharge. PHYSICAL EXAMINATION: On examination today, blood pressure was 115/61, heart rate 84 per minute. Patient is afebrile. EXAMINATION OF THE HEART: S1 and S2. EXAMINATION OF LUNGS: Bilateral breath sounds are heard. ABDOMEN: Soft, obese. Examination of lower extremities shows edema 1+ left lower extremity. No edema right lower extremity. ADJUDICATION SPECIALIST exam is grossly intact. LABS: Labs show sodium of 136, potassium 5.0, chloride 97, BUN 95, creatinine 2.93. ASSESSMENT: 1. Acute kidney injury, acute tubular necrosis, currently improving. 2. Hypotension, maintained on midodrine. 3. Status post right hip intramedullary screw fixation, postoperative day number 6 for right hip fracture. 4. Advanced chronic obstructive pulmonary disease, maintained on home oxygen. 5. History of acute kidney injury requiring dialysis, currently off of dialysis with improving renal function. 6. Chronic diastolic congestive heart failure with tricuspid regurgitation, severe pulmonary hypertension. 7. Chronic kidney disease, stage 3; baseline creatinine 1 to 1.5. UA remains benign. 8. Acute blood loss anemia, status post surgery, status post packed RBCs transfusion. PLAN: Discontinue PermCath today and we will also remove the Boggs catheter and try a voiding trial prior to discharge. Patient should follow up in the office in about one week's time post discharge to follow up on her renal function. MMODL / IJN: [id number] /
--- NOTE | 2020-02-12 21:10 | P.PN ---
Progress Note - Text Progress Note Date: 02/11/20 - Chief Complaint Left hip pain History of presenting complaint: This is a very pleasant 79-year-old patient of Dr. Steph Dooley. Chronic stable medical conditions include hyperlipidemia, hypertension, obstructive sleep apnea does not use a CPAP machine, hypothyroid, CLL, macular degeneration, coronary artery disease with stent/2008. Home oxygen 4-5 L. . Admitted on January 06 with unstable angina. Nitrates was added. PE was ruled out. Patient now tripped and fell falling on her right hip. Has a fracture. Is on home oxygen on 4 L. Patient's hemodialysis of been on hold for a few days. No chest pain or palpitation. Breathing is stable. No fever no chills. Otherwise at her baseline. No chest pain. February 04-underwent right hip IM hip screw fixation for the IT fracture. Oxygen requirement went up to 8 L. Be[address] followed by Dr[address] Shoemaker. Had a drop in hemoglobin. Blood being transfused. PE ruled out. DVT ruled out. Today-comfortable. Laying in bed. Fair oral intake.. Review of systems: Was done for constitutional, cardiovascular, GI, pulmonary. relevant finding as above Current medications reviewed in today's electronic records Physical examination: VITAL SIGNS: 97.4, 84, 22, 147 x 56, 93% on 6 L GENERAL: Laying in bed, nasal cannula,-6l comfortable EYES: Pupils equal. Conjunctiva normal. NECK: JVD unable to assess masses not palpable. HEART: First and second heart sounds are normal; mild edema present LUNGS: Respiratory rate increased, decreased breath sounds ABDOMEN: Soft, nontender, liver spleen not palpable, no masses palpable. PSYCH: Alert and oriented x3; mood and affect normal. NEUROLOGICAL: Cranial nerves grossly intact; no facial asymmetry, power and sensation grossly intact. MUSCULAR skeletal: Evidence of OA. Limited range of motion on right hip. Investigations: February 09: White count 16.3 hemoglobin 7.8 potassium 4.8 creatinine 3.8 February 07: White count 7.5 hemoglobin 8.4 potassium 5.4 BUN 85 creatinine 3.88 VQ scan-low probability February 06: Potassium 5.1 bun 79 creatinine 4.4 Doppler ultrasound lower extremities-negative for DVT. Chest [id number] findings February 05: White count 13.3 hemoglobin 7.2 potassium 5.4 bun 73 creatinine 4.4 White count 11.9 hemoglobin 8.2 platelets 139 potassium 4.0 bun 46 creatinine 2.40 EKG tracing personally reviewed by me-normal sinus rhythm, some flipped T waves in anterior leads Hip x-ray-ID fractured the right femur Chest x-ray film personally reviewed by me-, rotated some chronic changes 2-D echocardiogram [December 2019]-shows moderate concentric LVH and EF of 50-55% %, moderate to severe tricuspid regurgitation, severe pulmonary hypertension Assessment: -Mechanical fall leading to a right femur intertrochanteric fracture-IM hip screw fixation - COPD in an ex-smoker -Chronic congestive heart failure exacerbation from diastolic dysfunction EF 50- 55% % from underlying coronary artery disease -chronic hypoxic respiratory failure, on baseline 4 L oxygen at home -Acute hypoxic respiratory failure now on 8 L of nasal cannula. No DVT. PE unlikely given no probable 20 VQ scan. -Hyperkalemia from kidney failure -Moderate to severe tricuspid regurgitation, non-rheumatic -Secondary severe pulmonary hypertension -Essential hypertension -Diabetes mellitus II, -Hyperlipidemia -Hypothyroid -CLL -Chronic macular degeneration -Coronary artery disease with prior history of stent -Obesity BMI 32.6 -Chronic gait dysfunction uses a cane -Chronic kidney stage III -Acute kidney injury secondary to ATN secondary to cardiorenal syndrome. Recently taken off hemodialysis about 10 days ago due to recovery renal function.. -Depression not otherwise specified -Acute postprocedure blood loss anemia as expected from surgery. Patient getting blood transfusion Plan: Oxygen requirements coming down. Patient is minimally ambulatory . Oxygen can be excused on further. DC if okay with pulmonary. Hemodialysis cath taken out Thank you Dr. Angeles
--- NOTE | 2020-02-13 11:08 | CDI ---
Documentation Clarification Form Date: 02/10/2020 12:05:56 PM From: Raquel Resendez RN CCDS Admit Date: 02/03/2020 05:10:00 PM Patient Name: Amara Martinez Visit Number: [id number] Discharge Date: ATTENTION: The Clinical Documentation Specialists (CDI) and [facility] Coding Staff appreciate your assistance in clarifying documentation. Please respond to the clarification below the line at the bottom and electronically sign. The CDI & [facility] Coding staff will review the response and follow-up if needed. Please note: Queries are made part of the Legal Health Record. If you have any questions, please contact the author of this message via ITS. Dr. Zaragoza, Acute hypoxic respiratory failure is documented in the Internal Medicine Progress Note 02/06 Through 02/08. Patients Admitting Diagnosis: Right Hip Fracture Post-Operative Diagnosis: Right Hip four-part intertrochanteric hip fracture Procedure performed: Right Hip intramedullary hip screw fixation History/Risk Factors: 79-year-old female presents to the ED after a fall with right hip fracture. Clinical Indicators: 02/05 VSS B/P 104/55; HR 96; Temp 98.5 F Oral; RR 22; SpO2 89% High Flow Nasal Cannula 02/09 RR 18; SpO2 95% 10L High Flow Nasal Cannula Medical History: Advanced COPD on 4L home oxygen, Severe sleep apnea does not use a CPAP machine, Chronic respiratory failure 4-5L nasal cannula at home and prior history of smoking 02/02 CXR mild infiltrate left costophrenic angle. Correlate for atelectasis 02/03 Pulmonary Consult: Advanced COPD 4L home oxygen regular basis; History of severe MADAY and previously declined CPAP therapy. Treatment: 02/02 Ventolin PRN d/c 02/07; 02/07 Duoneb QID JACK; 02/03 Pulmicort BID; 10 L High Flow Oxygen; 02/03 Yupelri Inhalation Daily d/c 02/09 Consults: Pulmonology 02/03 see above In order to accurately reflect this patients severity of illness, please clarify if the Acute Respiratory Failure: -is a complication of surgical procedure -is an expected outcome of the surgical procedure -is related to co-morbid condition(s) of please specify -Other please specify -Unable to determine (Last Revision: April 2019)is an expected outcome of the surgical procedure MTDD
== END 2020-02-11 21:05 | DRG 480 ==
LOC: EC 15:55 → 4SSUR 17:10 → 5NMEDONC 02-07 19:51
PROVIDERS: ADMIT Orthopaedic Surgery Sports Medicine; ATTEND Orthopaedic Surgery Sports Medicine
PROC: 0QS636Z Reposition Right Upper Femur with Intramedullary Internal Fixation Device, Percutaneous Approach (ICD-10-PCS; principal; 2020-02-05 11:10)
PROC: 05PY03Z Removal of Infusion Device from Upper Vein, Open Approach (ICD-10-PCS; 2020-02-11)
DX: S72.141A Displaced intertrochanteric fracture of right femur, initial encounter for closed fracture (principal); N17.0 Acute kidney failure with tubular necrosis; I50.33 Acute on chronic diastolic (congestive) heart failure; J96.21 Acute and chronic respiratory failure with hypoxia; C91.10 Chronic lymphocytic leukemia of B-cell type not having achieved remission; D62 Acute posthemorrhagic anemia; D80.1 Nonfamilial hypogammaglobulinemia; I13.2 Hypertensive heart and chronic kidney disease with heart failure and with stage 5 chronic kidney disease, or end stage renal disease; I25.110 Atherosclerotic heart disease of native coronary artery with unstable angina pectoris; J98.11 Atelectasis; W01.0XXA Fall on same level from slipping, tripping and stumbling without subsequent striking against object, initial encounter; Y92.009 Unspecified place in unspecified non-institutional (private) residence as the place of occurrence of the external cause; M40.202 Unspecified kyphosis, cervical region; Z68.32 Body mass index [BMI] 32.0-32.9, adult; L89.611 Pressure ulcer of right heel, stage 1; D63.1 Anemia in chronic kidney disease; E03.9 Hypothyroidism, unspecified; E11.22 Type 2 diabetes mellitus with diabetic chronic kidney disease; E11.65 Type 2 diabetes mellitus with hyperglycemia; E66.9 Obesity, unspecified; E78.5 Hyperlipidemia, unspecified; E83.42 Hypomagnesemia; T50.2X5A Adverse effect of carbonic-anhydrase inhibitors, benzothiadiazides and other diuretics, initial encounter; E87.5 Hyperkalemia; F32.9 Major depressive disorder, single episode, unspecified; G47.33 Obstructive sleep apnea (adult) (pediatric); Z99.89 Dependence on other enabling machines and devices; Z99.81 Dependence on supplemental oxygen; H35.30 Unspecified macular degeneration; I07.1 Rheumatic tricuspid insufficiency; I27.20 Pulmonary hypertension, unspecified; J44.9 Chronic obstructive pulmonary disease, unspecified; Z79.82 Long term (current) use of aspirin; Z79.890 Hormone replacement therapy; Z79.899 Other long term (current) drug therapy; Z82.49 Family history of ischemic heart disease and other diseases of the circulatory system; Z85.828 Personal history of other malignant neoplasm of skin; Z87.891 Personal history of nicotine dependence; Z95.5 Presence of coronary angioplasty implant and graft; Z81.1 Family history of alcohol abuse and dependence; Z90.89 Acquired absence of other organs
CPT/HCPCS: 36415; 51702; 70450; 71045; 72125; 72170; 73501; 78580; 80048; 80053; 81001; 82728; 83540; 83550; 83735; 84132; 85025; 85610; 85730; 86850; 86900; 86901; 86920; 93005; 93970; 94640; 94760; 96374; 96376; 99285